=== PATIENT | female | born 1935 | race Caucasian/White ===

== ENCOUNTER → 2017-09-22 08:54 | Outpatient (CLI) | payer MEDICARE, SELFPAY ==
[2017-09-22 10:12] LABS: Color, Urine Yellow (Yellow); Glucose, Dipstick Normal (Normal); Ketone-Dipstick Negative (Negative); Leukocyte Esterase-Dipstick 500 /ul (Negative); Nitrite-Dipstick Negative (Negative); Occult Blood-Urine 10 /ul (Negative); Protein-Dipstick 15 mg/dl (Negative); Specific Gravity, Urine 1.015 (1.002-1.030); Urine Bilirubin Dipstick Negative (Negative); Urine Clarity Sl. Cloudy (Clear); Urine Urobilinogen 1 mg/dl (Normal)
[2017-09-22 10:46] LABS: ALB/GLOB Ratio 0.8 RATIO (0.9-2.4); AST(SGOT) 17 U/L (15-37); Alanine Aminotransfer ALT/SGPT 22 U/L (13-56); Albumin, Serum 3.4 g/dL (3.2-5.0); Alkaline Phosphatase 75 U/L (45-117); Anion Gap 9 (5-15); BUN 27 mg/dL (7-18); BUN/Creat Ratio 18.9 RATIO (10-20); Calcium,Total 9.4 mg/dL (8.5-10.1); Chloride 103 mmol/L (98-107); Cholesterol 142 mg/dL (200); Creatinine, Serum 1.43 mg/dL (0.55-1.02); EST Glomerular Filtration Rate 37 mL/min (>60); Est Glom Filt Rate - Afr Amer 45 mL/min (>60); Globulin 4.5 g/dL (2.2-4.2); Glucose 111 mg/dL (74-106); High Density Lipoprotein 55 mg/dL; Potassium 3.9 mmol/L (3.5-5.1); Protein, Total 7.9 g/dL (6.4-8.2); Sodium Level 138 mmol/L (136-145); Thyroid Stim Hormone (TSH) 2.42 uIU/mL (0.358-3.74); Triglycerides 86 mg/dL; Very Low Density Lipoprotein 17 mg/dL (5-40)
[2017-09-22 12:16] LABS: Absolute Lymphocyte Count 2.82 X10^3/ul (0.83-4.51); Basophil# 0.03 X10^3/uL; Basophil% 0.3 % (0-1); Eosinophil# 0.14 X10^3/uL; Eosinophils% 1.2 % (0-5); Hematocrit 42.8 % (37-47); Hemoglobin 14.2 g/dl (12.0-15.0); Lymphocyte # 2.82 X10^3/ul (4.0); Lymphocyte % 23.7 % (19-41); Mean Corp Hgb Conc 33.2 g/gl (32-36); Mean Corpuscular Hgb 31.8 pg (27.0-32.0); Mean Platelet Vol. 10.2 fl (6.2-12.0); Monocyte# 0.87 X10^3/uL; Monocyte% 7.3 % (0-10); Neutrophil # 7.97 X10^3/uL (2.7-7.7); Neutrophil % 67.1 % (47-70); Platelet Count 289 K/mm3 (150-450); RBC Distribution Width CV 12.5 % (11.6-14.6); Red Blood Count 4.46 M/mm3 (4.2-5.4); White Blood Count 11.9 K/mm3 (4.4-11.0)
[2017-09-22 12:20] LABS: POSITIVE COUNT NO; POSITIVE DIFFERENTIAL NO; POSITIVE MORPHOLOGY NO
== END ==
PROVIDERS: Family Provider Family Medicine; PCP Family Medicine; Visit Provider Family Medicine
DX: Z00.00 Encounter for general adult medical examination without abnormal findings (principal); I10 Essential (primary) hypertension; E03.9 Hypothyroidism, unspecified
CPT/HCPCS: 36415; 80053; 80061; 81002; 84443; 85025

== ENCOUNTER → 2018-10-11 08:20 | Outpatient (CLI) | payer MEDICARE, SELFPAY ==
[2018-10-11 09:57] LABS: Color, Urine Yellow (Yellow); Glucose, Dipstick Normal (Normal); Ketone-Dipstick Negative (Negative); Leukocyte Esterase-Dipstick 100 /ul (Negative); Nitrite-Dipstick Negative (Negative); Occult Blood-Urine Negative /ul (Negative); Protein-Dipstick Negative (Negative); Urine Bilirubin Dipstick Negative (Negative); Urine Clarity Sl. Cloudy (Clear); Urine Urobilinogen 4 mg/dl (Normal)
[2018-10-11 10:02] LABS: Absolute Lymphocyte Count 2.79 X10^3/ul (0.83-4.51); Absolute Neutrophil Count 5.4 X10^3/uL (2.0-7.7); Basophil# 0.03 X10^3/uL; Basophil% 0.3 % (0-1); Eosinophil# 0.23 X10^3/uL; Eosinophils% 2.5 % (0-5); Hematocrit 41.9 % (37-47); Hemoglobin 13.8 g/dl (12.0-15.0); Lymphocyte # 2.79 X10^3/ul (4.0); Lymphocyte % 30.5 % (19-41); Mean Corp Hgb Conc 32.9 g/gl (32-36); Mean Corpuscular Hgb 31.2 pg (27.0-32.0); Mean Corpuscular Volume 94.8 fL (81-99); Mean Platelet Vol. 9.9 fl (6.2-12.0); Monocyte# 0.64 X10^3/uL; Neutrophil # 5.43 X10^3/uL (2.7-7.7); Neutrophil % 59.5 % (47-70); Platelet Count 247 K/mm3 (150-450); Red Blood Count 4.42 M/mm3 (4.2-5.4); White Blood Count 9.1 K/mm3 (4.4-11.0)
[2018-10-11 10:08] LABS: POSITIVE COUNT NO; POSITIVE DIFFERENTIAL NO; POSITIVE MORPHOLOGY NO
[2018-10-11 10:32] LABS: ALB/GLOB Ratio 0.9 RATIO (0.9-2.4); AST(SGOT) 14 U/L (15-37); Alanine Aminotransfer ALT/SGPT 19 U/L (13-56); Albumin, Serum 3.4 g/dL (3.2-5.0); Alkaline Phosphatase 69 U/L (45-117); Anion Gap 10 (5-15); BUN 23 mg/dL (7-18); BUN/Creat Ratio 23.7 RATIO (10-20); Calcium,Total 9.5 mg/dL (8.5-10.1); Chloride 106 mmol/L (98-107); Cholesterol 145 mg/dL (200); Creatinine, Serum 0.97 mg/dL (0.55-1.02); EST Glomerular Filtration Rate 58 mL/min (>60); Est Glom Filt Rate - Afr Amer 71 mL/min (>60); Globulin 3.7 g/dL (2.2-4.2); Glucose 96 mg/dL (74-106); High Density Lipoprotein 56 mg/dL; Protein, Total 7.1 g/dL (6.4-8.2); Sodium Level 142 mmol/L (136-145); Thyroid Stim Hormone (TSH) 3.06 uIU/mL (0.358-3.74); Triglycerides 56 mg/dL; Very Low Density Lipoprotein 11 mg/dL (5-40)
== END ==
PROVIDERS: Family Provider Family Medicine; PCP Family Medicine; Referring Provider Family Medicine; Visit Provider Family Medicine
DX: Z00.00 Encounter for general adult medical examination without abnormal findings (principal); Z12.39 Encounter for other screening for malignant neoplasm of breast; E03.9 Hypothyroidism, unspecified
CPT/HCPCS: 36415; 80053; 80061; 81002; 84443; 85025

== ENCOUNTER → 2018-11-10 12:50 | Outpatient (CLI) | payer MEDICARE, SELFPAY ==
--- NOTE | 2018-11-10 12:54 | BI_ITS ---
MAMMOGRAPHY - BILATERAL SCREENING REASON FOR EXAM: Female, 83 years old. Routine annual screening examination. PERTINENT HISTORY: Sister with breast cancer. Remote right excisional breast biopsies. TECHNIQUE: Digital bilateral breast candi (3D mammographic acquisition) in the CC and MLO projections. 2-D mediolateral oblique (MLO) and craniocaudad (CC) views of both breasts were obtained. CAD: Full Field Digital Mammography with Computer Added Detection was performed. COMPARISON: Comparison is made with prior study dated October 24, 2017 and November 20, 2015. FINDINGS: Breast Composition: There are scattered areas of fibroglandular density. There are no dominant masses or suspicious calcifications. Stable bilateral secretory calcifications. A tissue clip marker is again seen in the axillary region of the right breast. No other significant abnormalities are identified. There has been no significant change since the prior study. BI/SCREEN MAMM (CAD) W/CANDI BILAT IMPRESSION: Stable bilateral screening mammogram. Yearly follow-up mammogram recommended. (A) ASSESSMENT CATEGORY: BIRADS Category 2: Benign. A letter regarding these results will be sent to the patient by the facility within 30 days. Approximately 10% of breast cancers are not detected by mammography. A normal mammogram should not delay biopsy of a clinically suspicious abnormality. [id number] Electronically Signed: Kenan Rodriguez, at 15:18 EDT , Service support ,
== END ==
PROVIDERS: Family Provider Family Medicine; PCP Family Medicine; Referring Provider Family Medicine; Visit Provider Family Medicine
DX: Z12.31 Encounter for screening mammogram for malignant neoplasm of breast (principal); Z80.3 Family history of malignant neoplasm of breast
CPT/HCPCS: 77063; 77067

== ENCOUNTER → 2019-10-09 08:31 | Outpatient (CLI) | payer MEDICARE, SELFPAY ==
[2019-10-09 12:07] LABS: Absolute Lymphocyte Count 2.24 X10^3/uL (0.83-4.51); Absolute Neutrophil Count 6.3 X10^3/uL (2.0-7.7); Basophil# 0.05 X10^3/uL; Basophil% 0.5 % (0-1); Eosinophils% 1.1 % (0-5); Hematocrit 41.8 % (37-47); Hemoglobin 13.6 g/dL (12.0-15.0); Lymphocyte # 2.24 X10^3/ul (4.0); Lymphocyte % 23.7 % (19-41); Mean Corp Hgb Conc 32.5 g/dL (32-36); Mean Corpuscular Hgb 32.2 pg (27.0-32.0); Mean Corpuscular Volume 98.8 fL (81-99); Mean Platelet Vol. 10.1 fl (6.2-12.0); Monocyte% 7.4 % (0-10); NRBC Flagged by Analyzer 0 % (0-5); Neutrophil # 6.33 X10^3/uL (2.7-7.7); Platelet Count 223 K/mm3 (150-450); RBC Distribution Width CV 12.8 % (11.6-14.6); RBC Distribution Width SD 45.5 fl (35.1-43.9); Red Blood Count 4.23 M/mm3 (4.2-5.4); White Blood Count 9.5 K/mm3 (4.4-11.0)
[2019-10-09 12:36] LABS: ALB/GLOB Ratio 0.8 RATIO (0.9-2.4); AST(SGOT) 16 U/L (15-37); Alanine Aminotransfer ALT/SGPT 23 U/L (13-56); Albumin, Serum 3.4 g/dL (3.2-5.0); Alkaline Phosphatase 61 U/L (45-117); Anion Gap 9 (5-15); BUN 21 mg/dL (7-18); BUN/Creat Ratio 21.9 RATIO (10-20); Calcium,Total 9.5 mg/dL (8.5-10.1); Chloride 104 mmol/L (98-107); Cholesterol 129 mg/dL (200); Creatinine, Serum 0.96 mg/dL (0.55-1.02); EST Glomerular Filtration Rate 59 mL/min (>60); Est Glom Filt Rate - Afr Amer 71 mL/min (>60); Glucose 101 mg/dL (74-106); High Density Lipoprotein 53 mg/dL; Potassium 3.8 mmol/L (3.5-5.1); Protein, Total 7.4 g/dL (6.4-8.2); Sodium Level 138 mmol/L (136-145); Thyroid Stim Hormone (TSH) 2.86 uIU/mL (0.358-3.74); Triglycerides 59 mg/dL; Very Low Density Lipoprotein 12 mg/dL (5-40)
[2019-10-09 12:52] LABS: Color, Urine Yellow (Yellow); Glucose, Dipstick Normal (Normal); Ketone-Dipstick Negative (Negative); Leukocyte Esterase-Dipstick 500 /ul (Negative); Nitrite-Dipstick Negative (Negative); Occult Blood-Urine 10 /ul (Negative); Protein-Dipstick 15 mg/dl (Negative); Urine Bilirubin Dipstick Negative (Negative); Urine Clarity Sl. Cloudy (Clear); Urine Urobilinogen 1 mg/dl (Normal)
== END ==
PROVIDERS: PCP Family Medicine; Referring Provider Family Medicine; Visit Provider Family Medicine
DX: Z00.00 Encounter for general adult medical examination without abnormal findings (principal); E03.9 Hypothyroidism, unspecified; I10 Essential (primary) hypertension
CPT/HCPCS: 36415; 80053; 80061; 81002; 84443; 85025

== ENCOUNTER → 2020-09-22 08:43 | Outpatient (CLI) | payer MEDICARE, SELFPAY ==
[2020-09-22 10:07] LABS: Absolute Lymphocyte Count 3.86 X10^3/uL (0.83-4.51); Absolute Neutrophil Count 4.9 X10^3/uL (2.0-7.7); Basophil# 0.07 X10^3/uL; Basophil% 0.7 % (0-1); Eosinophil# 0.13 X10^3/uL; Eosinophils% 1.3 % (0-5); Hematocrit 43.7 % (37-47); Hemoglobin 14.2 g/dL (12.0-15.0); Lymphocyte # 3.86 X10^3/ul (0.83-4.51); Lymphocyte % 39.9 % (19-41); Mean Corp Hgb Conc 32.5 g/dL (32-36); Mean Corpuscular Hgb 31.7 pg (27.0-32.0); Mean Corpuscular Volume 97.5 fL (81-99); Mean Platelet Vol. 9.8 fl (6.2-12.0); Monocyte# 0.69 X10^3/uL; Monocyte% 7.1 % (0-10); NRBC Flagged by Analyzer 0 % (0-5); Neutrophil # 4.88 X10^3/uL (2.7-7.7); Neutrophil % 50.5 % (47-70); Platelet Count 272 K/mm3 (150-450); RBC Distribution Width CV 12.5 % (11.6-14.6); Red Blood Count 4.48 M/mm3 (4.2-5.4); White Blood Count 9.7 K/mm3 (4.4-11.0)
[2020-09-22 10:34] LABS: ALB/GLOB Ratio 0.9 RATIO (0.9-2.4); AST(SGOT) 14 U/L (15-37); Alanine Aminotransfer ALT/SGPT 18 U/L (13-56); Albumin, Serum 3.7 g/dL (3.2-5.0); Alkaline Phosphatase 67 U/L (45-117); Anion Gap 8 (5-15); BUN 24 mg/dL (7-18); BUN/Creat Ratio 23.1 RATIO (10-20); Calcium,Total 10.2 mg/dL (8.5-10.1); Chloride 104 mmol/L (98-107); Cholesterol 141 mg/dL (200); Creatinine, Serum 1.04 mg/dL (0.55-1.02); EST Glomerular Filtration Rate 54 mL/min (>60); Est Glom Filt Rate - Afr Amer 65 mL/min (>60); Globulin 4.1 g/dL (2.2-4.2); Glucose 98 mg/dL (74-106); High Density Lipoprotein 56 mg/dL; Potassium 3.7 mmol/L (3.5-5.1); Protein, Total 7.8 g/dL (6.4-8.2); Sodium Level 139 mmol/L (136-145); Thyroid Stim Hormone (TSH) 1.87 uIU/mL (0.358-3.74); Triglycerides 76 mg/dL; Very Low Density Lipoprotein 15 mg/dL (5-40)
== END ==
PROVIDERS: PCP Family Medicine; Referring Provider Family Medicine; Visit Provider Family Medicine
DX: Z00.00 Encounter for general adult medical examination without abnormal findings (principal); Z12.31 Encounter for screening mammogram for malignant neoplasm of breast; I48.91 Unspecified atrial fibrillation; I10 Essential (primary) hypertension; E03.9 Hypothyroidism, unspecified
CPT/HCPCS: 36415; 80053; 80061; 84443; 85025

== ENCOUNTER → 2021-02-25 10:42 | Outpatient (CLI) | payer MEDICARE, SELFPAY ==
[2021-02-25 13:14] LABS: Thyroid Stim Hormone (TSH) 1.19 uIU/mL (0.358-3.74)
== END ==
PROVIDERS: PCP Family Medicine; Referring Provider Family Medicine; Visit Provider Family Medicine
DX: E03.9 Hypothyroidism, unspecified (principal)
CPT/HCPCS: 36415; 84443

== ENCOUNTER → 2021-09-21 | Outpatient (CLI) | payer MEDICARE, SELFPAY ==
[2021-09-21 10:11] LABS: Absolute Neutrophil Count 6.1 X10^3/uL (2.0-7.7); Basophil# 0.07 X10^3/uL; Basophil% 0.7 % (0-1); Eosinophil# 0.23 X10^3/uL; Eosinophils% 2.3 % (0-5); Hematocrit 43.4 % (37-47); Hemoglobin 13.9 g/dL (12.0-15.0); Lymphocyte % 28.2 % (19-41); Mean Corpuscular Hgb 31.4 pg (27.0-32.0); Mean Corpuscular Volume 98.2 fL (81-99); Mean Platelet Vol. 9.8 fl (6.2-12.0); Monocyte# 0.67 X10^3/uL; Monocyte% 6.7 % (0-10); NRBC Flagged by Analyzer 0 % (0-5); Neutrophil # 6.11 X10^3/uL (2.7-7.7); Neutrophil % 61.5 % (47-70); Platelet Count 248 K/mm3 (150-450); RBC Distribution Width CV 12.8 % (11.6-14.6); RBC Distribution Width SD 46.2 fl (35.1-43.9); Red Blood Count 4.42 M/mm3 (4.2-5.4); White Blood Count 9.9 K/mm3 (4.4-11.0)
[2021-09-21 11:01] LABS: ALB/GLOB Ratio 0.8 RATIO (0.9-2.4); AST(SGOT) 18 U/L (15-37); Alanine Aminotransfer ALT/SGPT 18 U/L (13-56); Albumin, Serum 3.4 g/dL (3.2-5.0); Alkaline Phosphatase 71 U/L (45-117); Anion Gap 5 (5-15); BUN 27 mg/dL (7-18); BUN/Creat Ratio 26.7 RATIO (10-20); Calcium,Total 10.1 mg/dL (8.5-10.1); Chloride 105 mmol/L (98-107); Cholesterol 114 mg/dL (200); Creatinine, Serum 1.01 mg/dL (0.55-1.02); EST Glomerular Filtration Rate 55 mL/min (>60); Est Glom Filt Rate - Afr Amer 67 mL/min (>60); Globulin 4.3 g/dL (2.2-4.2); Glucose 95 mg/dL (74-106); High Density Lipoprotein 55 mg/dL; Potassium 3.9 mmol/L (3.5-5.1); Protein, Total 7.7 g/dL (6.4-8.2); Sodium Level 137 mmol/L (136-145); Thyroid Stim Hormone (TSH) 2.45 uIU/mL (0.358-3.74); Triglycerides 55 mg/dL; Very Low Density Lipoprotein 11 mg/dL (5-40)
== END | disposition home or self-care (01) ==
LOC: MTLAB 09:01
PROVIDERS: PCP Family Medicine; Referring Provider Family Medicine; Visit Provider Family Medicine
DX: Z00.00 Encounter for general adult medical examination without abnormal findings (principal); I48.91 Unspecified atrial fibrillation; I10 Essential (primary) hypertension; E03.9 Hypothyroidism, unspecified
CPT/HCPCS: 36415; 80053; 80061; 84443; 85025

== ENCOUNTER 2024-06-11 17:53 | Inpatient (IN) | payer MEDICARE, SELFPAY ==
[2024-06-11] VITALS (12 sets, daily range): BP systolic 147–181; BP diastolic 95–130; PULSE 110–126; RESP 14–30; TEMP 36.5–37; O2SAT 93–98; BMI 29.2; BMI 28.3
--- NOTE | 2024-06-11 16:58 | RAD_ITS ---
PROCEDURE: CHEST 1 VIEW (PORTABLE) REASON FOR EXAM: Confusion TECHNIQUE: Frontal and lateral views of the chest. COMPARISON: None. FINDINGS: Heart size is moderately enlarged. There are atherosclerotic calcifications of the thoracic aorta. There are chronic-appearing changes of both lungs. Degenerative changes are identified within the thoracic spine. RAD/Chest 1 View (Portable) IMPRESSION: 1. Cardiomegaly with mild pulmonary vascular congestion 2. 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 Reading Location: [facility]
--- NOTE | 2024-06-11 18:07 | EX.ED.DYSGE1 ---
HPI History of Present Illness Chief Complaint: Neuro S/Sx [facility] Medical History (Updated 06/11/24 @ 22:[address] Mio Benitez MD) Hypertension Home Medications ?Medication ?Instructions ?Recorded ?Last Taken ?Type Unobtainable 06/11/24 Unknown History Allergy/AdvReac Type Severity Reaction Status Date / Time No Known Allergies Allergy Verified 06/11/24 20:12 Family History unable to obtain Surgical History unable to obtain Social History Smoking Status: Never smoker EXAM Physical Exam Const Vital Signs: 06/11/24 17:54 06/11/24 19:31 06/11/24 20:15 Temperature 98.6 F Temperature Source Temporal Pulse Rate 120 H 112 H 112 H Respiratory Rate 16 24 H 20 H Blood Pressure 175/130 H 171/111 H 174/106 H Blood Pressure Mean 145 131 128 Pulse Ox 93 94 95 Oxygen Delivery Method Room Air Nasal Cannula Nasal Cannula Oxygen Flow Rate (L/min) 2 2 06/11/24 20:45 06/11/24 21:12 06/11/24 22:00 Temperature 97.7 F L 97.8 F Temperature Source Oral Oral Pulse Rate 118 H 110 H 111 H Respiratory Rate 30 H 18 20 H Blood Pressure 161/115 H 167/127 H 181/121 H Blood Pressure Mean 130 140 141 Pulse Ox 93 94 98 Oxygen Delivery Method Nasal Cannula Nasal Cannula Oxygen Flow Rate (L/min) 2 2 MDM MDM MDM Narrative Medical decision making narrative: HISTORY OF PRESENT ILLNESS: 88-year-old female presents concern for expressive aphasia. Son notes last time she was noted to be normal was at approximately 10 AM on 06/10/2024. The majority history is provided by the patient's son if she is confused. Today around noon she showed up at her her son's house and was having trouble finding her words. Notes confusion, saying non-sensical words. NO falls. no fever, no vomiting. REVIEW OF SYSTEMS: Pertinent positives: Word finding difficulty, confusion ROS are not reliable 2/2 to mental status changes. PHYSICAL EXAM: Nursing triage notes reviewed, Vital signs reviewed Constitutional: please see mdm HENT: MMM Eyes: Pupils equal round and reactive to light, Extraocular muscles intact Neck: No stridor, no JVD, full neck ROM Lungs: Clear to auscultation, No wheezing or rales. No increased work of breathing, no conversational dyspnea, no accessory muscle use, no nasal flaring. No respiratory distress noted Heart: Regular rate and rhythm, No murmurs, No rubs and No gallops, 2+ distal pulses (radial, femoral, posterior tibial) in all extremities Abdomen: Soft, there is no tenderness, rigidity, rebound or guarding, no obvious peritoneal signs, no palpable pulsatile abdominal masses, no auscultated abdominal bruit : No CVAT Extremities: No edema Neuro: Alert, oriented to person and place but not time. (Per son baseline is alert and orient x 3), moves all 4 extremities, has normal speech. No obvious cranial nerve deficits. No obvious sensory or strength deficits. No issues with extremity or truncal ataxia. NIH of 0 Skin: No rash or lesions noted MEDICAL DECISION MAKING: Chief Complaint: Speech difficulty External records reviewed: Reviewed prior imaging studies. Reviewed echocardiogram from 2016 which showed ejection fraction of 55% Factors affecting care: none reported Social determinants of health: elderly History obtained from others: The patient's son Consults: Neurosurgery at [facility] Emergency is Dr. Donaldson, Internal Medicine (Dr. Crum) MDM Narrative: The patient was initially hypertensive with a blood pressure 175/130, tachycardic with a heart rate of 120. Exam without focal neurologic deficits. The patient. Diffuse encephalopathic I considered the following differential diagnosis: ICH, infectious or metabolic encephalopathy, ACS, arrhythmia, anemia, electrolyte disturbance I obtained a broad lab and imaging workup to further elucidate etiology of patient's complaints. Patient was initially resuscitated from cc bolus ALL IMAGES (IF OBTAINED) HAVE BEEN PERSONALLY REVIEWED AND INTERPRETED BY MYSELF. EKG with normal axis, normal's, A-fib with RVR, no STEMI Initial troponin elevated, delta troponin continues to be elevated. This is likely a result of demand ischemia from A-fib with RVR, CHF and urosepsis. Chest x-ray shows evidence of pulmonary vascular congestion CT scan of the head is negative for ICH, there is noted meningioma CBC with leukocytosis suggestive recent abrasion, no anemia or thrombocytopenia BMP without significant electrolyte normalities, no MARITZA Initial lactate elevated consistent with endorgan hypoperfusion Urinalysis without nitrites however there is leukoesterase and 4+ bacteria consistent with likely UTI lipase is wnl indicating no pancreatic inflammation. Urine culture sent Treat UTI with ceftriaxone. Pulmonary vascular congestion new oxygen requirement of the patient ED stay after 500 cc bolus I gave her 40 mg of Lasix. Given CT scan Dr. Benitez initially recommended transfer. Discussed with [facility] Dr. Donaldson who noted the patient would not require neurosurgery intervention for meningioma. Recommended no transfer. Discussed this with Dr. Benitez who agreed to accept the patient. The patient and/or family, caregivers express understanding. The patient and/or family, caregivers agrees with the plan. Shared decision making: I will have a discussion with the patient and or visitors regarding risk/benefits of further testing or admission. They will be made aware of of the risk/benefits inherent in this decision they will be given the opportunity to voice understanding. Total critical care time today provided was at least 0 minutes. This excludes separately billable procedures. Critical care time (if documented) is secondary to the patient having high probability of clinically significant/life threatening deterioration in the patient's condition which required my urgent intervention. Impression: 1. Altered mental status 2. Urosepsis 3. CHF exacerbation 4. NSTEMI 5. A-fib with Dispo: admit to ICU This note was generated with [employer] dictation software. It may contain incorrect words, spelling, and punctuation that were not noted in review of the chart prior to signing. Lab Data Labs: Laboratory Results - last 24 hr 06/11/24 06/11/24 06/11/24 18:45 18:50 20:31 WBC 14.6 H RBC 4.59 Hgb 14.9 Hct 45.0 MCV 98.0 MCH 32.5 H MCHC 33.1 RDW Std Deviation 47.4 H RDW Coeff of Hong 13.2 Plt Count 262 MPV 9.4 Immature Gran % (Auto) 0.500 Neut % (Auto) 69.7 Lymph % (Auto) 21.4 [place] % (Auto) 7.0 Eos % (Auto) 0.8 Baso % (Auto) 0.6 Absolute Neuts (auto) 10.2 H Absolute Lymphs (auto) 3.12 Nucleated RBC % 0 Sodium 133 Potassium 3.9 Chloride 95 L Carbon Dioxide 22.6 Anion Gap 15 BUN 23 H Creatinine 1.00 Est GFR (MDRD) Non-Af 54 L BUN/Creatinine Ratio 22.6 H Glucose 113 H Lactic Acid 3.1 H* Calcium 10.3 Total Bilirubin 1.53 H AST 39 H ALT 18 Alkaline Phosphatase 80 Troponin T High Sens 64 H* Troponin T Hi Sens 2 Hr 59 H* Troponin T Hi Sens 2Hr Delta 5 Total Protein 8.2 Albumin 3.8 Globulin 4.4 H Albumin/Globulin Ratio 0.9 Lipase 20 Urine Color Yellow Urine Clarity Cloudy Urine pH 6.5 Ur Specific [place] 1.015 Urine Protein 100 H Urine Glucose (UA) Normal Urine Ketones Negative Urine Occult Blood 25 H Urine Nitrite Negative Urine Bilirubin Negative Urine Urobilinogen 8 H Ur Leukocyte Esterase 25 H Urine RBC 0 SEEN Urine WBC 0-5 SEEN Ur Squamous Epith Cells 0 SEEN Amorphous Sediment 1+ Urine Bacteria 4+ Urine Mucus 0 SEEN Radiography Diagnostic Testing: Clinical Impression(s) from Imaging Studies Chest X-Ray 06/11/24 16:58 IMPRESSION: 1. Cardiomegaly with mild pulmonary vascular congestion 2. 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 Reading Location: [facility] Brain CT 06/11/24 18:17 IMPRESSION: 1. No acute intracranial abnormality. 2. Age-appropriate volume loss and remote small vessel ischemic changes 3. Left parietal meningioma Reading Location: [facility] Discharge Plan Disposition Disposition: Acute Care Hospital [facility] Discharge Date/Time: 06/11/24 22:55
--- NOTE | 2024-06-11 18:17 | CT_ITS ---
EXAM: BRAIN/HEAD WITHOUT CONTRAST CLINICAL HISTORY: Confusion COMPARISON: None. TECHNIQUE: Noncontrast images of the head with multiplanar reconstructions. Dose reduction techniques were used including intermediate exposure control (AEC),iterative reconstruction technique, and/or mA and/or KV dose adjustments based on patient's size. FINDINGS: CT HEAD FINDINGS: No acute intracranial hemorrhage, mass, mass effect, midline shift or pathologic extra-axial fluid collection. Nonspecific periventricular white matter changes are noted No hydrocephalus. Age- appropriate cerebral volume and white matter. Visualized paranasal sinuses and mastoid air cells are clear. The calvarium is grossly intact. Round calcific mass in the left parietal convexity measuring 9 x [address]/Brain/Head without Contrast IMPRESSION: 1. No acute intracranial abnormality. 2. Age-appropriate volume loss and remote small vessel ischemic changes 3. Left parietal meningioma [facility]
--- NOTE | 2024-06-11 18:17 | EKG12_ITS ---
Test Reason : DYSRHYTHMIA Blood Pressure : */* mmHG Vent. Rate : 131 BPM Atrial Rate : 267 BPM P-R Int : * ms QRS Dur : 90 ms QT Int : 348 ms P-R-T Axes : * -17 41 degrees QTcB Int : 513 ms Atrial flutter with variable A-V block Low voltage QRS Abnormal ECG Confirmed by Benjamín Hendrix ([id number]), manuscript editor ANSON COHEN ([id number]) on 06/12/2024 10:44:57 AM Referred By: Mio Benitez Confirmed By: Benjamín Hendrix
[2024-06-11 18:56] LABS: Mucous, Urine 0 SEEN /hpf (<or=2+); Squamous Epithelial Cells - UA 0 SEEN /hpf (5-10)
[2024-06-11 18:58] LABS: Absolute Lymphocyte Count 3.12 X10^3/uL (0.83-4.51); Absolute Neutrophil Count 10.2 X10^3/uL (2.0-7.7); Basophil# 0.09 X10^3/uL; Basophil% 0.6 % (0-1); Eosinophil# 0.11 X10^3/uL; Eosinophils% 0.8 % (0-5); Hemoglobin 14.9 g/dL (12.0-15.0); Lymphocyte # 3.12 X10^3/ul (0.83-4.51); Lymphocyte % 21.4 % (19-41); Mean Corp Hgb Conc 33.1 g/dL (32-36); Mean Corpuscular Hgb 32.5 pg (27.0-32.0); Mean Platelet Vol. 9.4 fl (6.2-12.0); Monocyte# 1.02 X10^3/uL; NRBC Flagged by Analyzer 0 % (0-5); Neutrophil # 10.16 X10^3/uL (2.7-7.7); Neutrophil % 69.7 % (47-70); Platelet Count 262 K/mm3 (150-450); RBC Distribution Width CV 13.2 % (11.6-14.6); RBC Distribution Width SD 47.4 fl (35.1-43.9); Red Blood Count 4.59 M/mm3 (4.2-5.4); White Blood Count 14.6 K/mm3 (4.4-11.0)
[2024-06-11 19:00] LABS: Color, Urine Yellow (Yellow); Glucose, Dipstick Normal (Normal); Ketone-Dipstick Negative (Negative); Leukocyte Esterase-Dipstick 25 /ul (Negative); Nitrite-Dipstick Negative (Negative); Occult Blood-Urine 25 /ul (Negative); Protein-Dipstick 100 mg/dl (Negative); Specific Gravity, Urine 1.015 (1.002-1.030); Urine Bilirubin Dipstick Negative (Negative); Urine Clarity Cloudy (Clear); Urine Urobilinogen 8 mg/dl (Normal); Urine pH 6.5 (5.0 - 8.0)
[2024-06-11 19:50] LABS: ALB/GLOB Ratio 0.9 RATIO (0.9-2.4); AST(SGOT) 39 U/L (<=31); Alanine Aminotransfer ALT/SGPT 18 U/L (<=34); Albumin, Serum 3.8 g/dL (3.4-4.8); Alkaline Phosphatase 80 U/L (35-104); Anion Gap 15 (5-15); BUN 23 mg/dL (4-19); BUN/Creat Ratio 22.6 RATIO (10-20); Calcium,Total 10.3 mg/dL (7.6-11.0); Carbon Dioxide 22.6 mmol/L (21.0-32.0); Chloride 95 mmol/L (98-108); EST Glomerular Filtration Rate 54 (>60); Globulin 4.4 g/dL (2.2-4.2); Glucose 113 mg/dL (70-99); Lipase 20 U/L (13-75); Potassium 3.9 mmol/L (3.3-5.1); Protein, Total 8.2 g/dL (5.9-8.4); Sodium Level 133 mmol/L (133-145); Total Bilirubin 1.53 mg/dL (0.00-1.30)
[2024-06-11 19:57] LABS: Amorphous Sediment 1+; Bacteria 4+ /hpf (None Seen); Red Blood Cells-Urine 0 SEEN /hpf (0-5); White Blood Cells 0-5 SEEN /hpf (0-5)
[2024-06-11 20:15] LABS: Lactic Acid 3.1 mmol/L (0.0-2.0)
[2024-06-11 20:16] LABS: Troponin T High Sensitivity 64 ng/L (<=14)
[2024-06-11] MEDS: Furosemide 40 MG/4 ML Vial IV (20:30)
[2024-06-11] MEDS: Metoprolol Tartrate 5 MG/5 ML Vial IV (21:07)
[2024-06-11] MEDS: 0.9% Normal Saline (500mL Bag) 500 ML 999 ML IV (21:08)
[2024-06-11] MEDS: Ceftriaxone 2 GM in 0.9% Normal Saline (50mL MB+) 50 ML IV (21:08)
--- NOTE | 2024-06-11 21:12 | ED.RN ---
ASKS ACCESSIBILITY LIFT TECHNICIAN TO CALL TO INITIATE TRANFER, SUGGESTED [facility]. MELINDA FROM TRANSFER LINES COLLCTED BASIC INOFRMATION AND REQUESTED TO TALK TO [facility] FOR FURTHER. WAITING CALL BACK.
[2024-06-11 21:13] LABS: TROPONIN VARIANCE 2 HR 5; Troponin T High Sens 2 HR 59 ng/L (<=14)
--- NOTE | 2024-06-11 22:29 | PCM.HP.STD ---
HPI - General General Date of Admission: 06/11/24 Date of Service: 06/11/24 Chief Complaint: Altered mental status HPI Narrative ESTEBAN GARNER, is a 88 F who presents to the emergency room with chief complaint of altered mental status. Patient was last known normal on 06/10/2024 at 10 AM but today went to her son's house at noon when he says that she was unable to speak clearly and nonsensical in her verbal communication. There were no other focal neurologic deficits reported at that time and initial NIH score the hospital setting was 0. Patient is a poor historian. Her laboratory studies were remarkable for an elevated white blood cell count of 14.6, hemoglobin 14.9, hematocrit 45, platelets 262, sodium 133, potassium 3.9, chloride 95, bicarb 22.6, BUN 23, creatinine 1.0, glucose 113, lactate elevated at 3.1 with 2 serial troponins of 64 and 59, urinalysis positive for 4+ bacteria. CT scan was negative for acute findings however there was a noted left parietal meningioma reported for which neurosurgery at [facility] Was consulted by ER physician and felt not necessary to transfer patient that this was not causative of her current status. Chest x-ray showed cardiomegaly with vascular congestion and BN TP was pending at the time of my evaluation. Urinalysis was done prior to administration of antibiotics however blood cultures were not obtained prior to administration of Rocephin in the emergency room setting. Patient also has a significant history of atrial fibrillation for which she is currently in rapid ventricular response with a rate in the approximate 130 range. Patient will be admitted to the intensive care unit for treatment of urinary tract infection with sepsis [facility] Medical History (Updated 06/11/24 @ 22:[address] Mio Benitez MD) Hypertension Home Medications ?Medication ?Instructions ?Recorded ?Last Taken ?Type Unobtainable 06/11/24 Unknown History Allergy/AdvReac Type Severity Reaction Status Date / Time No Known Allergies Allergy Verified 06/11/24 20:12 Family History unable to obtain Surgical History unable to obtain Social History Smoking Status: Never smoker ROS Review of Systems ROS Unobtainable: due to mental status Vital Signs Vital Signs Vital Signs: 06/11/24 17:54 06/11/24 19:31 06/11/24 20:15 Temperature 98.6 F Temperature Source Temporal Pulse Rate 120 H 112 H 112 H Respiratory Rate 16 24 H 20 H Blood Pressure 175/130 H 171/111 H 174/106 H Blood Pressure Mean 145 131 128 Pulse Ox 93 94 95 Oxygen Delivery Method Room Air Nasal Cannula Nasal Cannula Oxygen Flow Rate (L/min) 2 2 06/11/24 20:45 06/11/24 21:12 06/11/24 22:00 Temperature 97.7 F L 97.8 F Temperature Source Oral Oral Pulse Rate 118 H 110 H 111 H Respiratory Rate 30 H 18 20 H Blood Pressure 161/115 H 167/127 H 181/121 H Blood Pressure Mean 130 140 141 Pulse Ox 93 94 98 Oxygen Delivery Method Nasal Cannula Nasal Cannula Oxygen Flow Rate (L/min) 2 2 Weight Weight: 159 lb 9.835 oz Body Mass Index (BMI) 29.2 Physical Exam Const alert General Appearance: cooperative Orientation / Consciousness: confused HEENT normocephalic and head/scalp atraumatic Eyes PERRL and EOMs intact bilaterally Neck no lymphadenopathy Lymph Lymphatic: no lymphadenopathy noted Resp normal respiratory effort, normal air movement and clear to auscultation bilaterally Cardio Rate: tachycardic Rhythm: abnormal rhythm irregularly irregular GI normal to inspection, nondistended, normoactive bowel sounds, soft to palpation, non-tender and non-distended Extremity normal capillary refill Skin General Skin Exam: no breakdown Neuro CN's II-XII intact bilaterally, no focal motor deficits and no sensory deficits noted Motor Exam: strength 5/5 throughout Psych Mood & Affect: anxious Results Lab / Micro Data 06/11/24 18:45 06/11/24 18:45 Labs: Laboratory Results - last 24 hr 06/11/24 18:45: WBC 14.6 H, RBC 4.59, Hgb 14.9, Hct 45.0, MCV 98.0, MCH 32.5 H, MCHC 33.1, RDW Std Deviation 47.4 H, RDW Coeff of [place] 13.2, Plt Count 262, MPV 9.4, Immature Gran % (Auto) 0.500, Neut % (Auto) 69.7, Lymph % (Auto) 21.4, [place] % (Auto) 7.0, Eos % (Auto) 0.8, Baso % (Auto) 0.6, Absolute Neuts (auto) 10.2 H, Absolute Lymphs (auto) 3.12, Nucleated RBC % 0, Sodium 133, Potassium 3.9, Chloride 95 L, Carbon Dioxide 22.6, Anion Gap 15, BUN 23 H, Creatinine 1.00, Est GFR (MDRD) Non-Af 54 L, BUN/Creatinine Ratio 22.6 H, Glucose 113 H, Lactic Acid 3.1 H*, Calcium 10.3, Total Bilirubin 1.53 H, AST 39 H, ALT 18, Alkaline Phosphatase 80, Troponin T High Sens 64 H*, Total Protein 8.2, Albumin 3.8, Globulin 4.4 H, Albumin/Globulin Ratio 0.9, Lipase 20 06/11/24 18:50: Urine Color Yellow, Urine Clarity Cloudy, Urine pH 6.5, Ur Specific [employer] 1.015, Urine Protein 100 H, Urine Glucose (UA) Normal, Urine Ketones Negative, Urine Occult Blood 25 H, Urine Nitrite Negative, Urine Bilirubin Negative, Urine Urobilinogen 8 H, Ur Leukocyte Esterase 25 H, Urine RBC 0 SEEN, Urine WBC 0-5 SEEN, Ur Squamous Epith Cells 0 SEEN, Amorphous Sediment 1+, Urine Bacteria 4+, Urine Mucus 0 SEEN 06/11/24 20:31: Troponin T Hi Sens 2 Hr 59 H*, Troponin T Hi Sens 2Hr Delta 5 Imaging Radiology Impression Chest X-Ray 06/11/24 16:58 IMPRESSION: 1. Cardiomegaly with mild pulmonary vascular congestion 2. 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 Reading Location: [facility] Brain CT 06/11/24 18:17 IMPRESSION: 1. No acute intracranial abnormality. 2. Age-appropriate volume loss and remote small vessel ischemic changes 3. Left parietal meningioma Reading Location: [facility] Assessment & Plan Assessment/Plan (1) Urinary tract infection: (2) Atrial fibrillation with RVR: (3) Meningioma, cerebral: (4) Sepsis: (5) Elevated troponin: PLAN: Plan 1. Confusion with altered mental status?admit patient to intensive care unit. Etiology likely caused by urinary tract infection, treat patient with IV Rocephin 1 g every 12 hours, will add neurologic assessments and may consider MRI if mental status does not improve as anticipated 2. Urinary tract infection?IV Rocephin as above. Culture was obtained and antibiotic therapy can be adjusted accordingly when resulted. IV fluids normal saline at a rate of 125 cc/h and repeat lactic acid per routine protocol. Will get CBC BMP in the a.m. 3. Atrial fibrillation with RVR?rate control with beta-marilyn and will add anticoagulation 4. DVT prophylaxis anticoagulation as above Charges/Coding Visit Charges Inpatient E&M: 74699 Init Hosp L2
[2024-06-11 23:39] LABS: TROPONIN VARIANCE 4 HR 3; Troponin T High Sens 4 HR 61 ng/L (<=14)
[2024-06-11] MEDS: Metoprolol Tartrate 50 MG Tablet PO (23:43)
[2024-06-11] MEDS: APIXABAN 5 MG TABLET PO (23:43)
[2024-06-12] VITALS (20 sets, daily range): BP systolic 109–165; BP diastolic 48–102; PULSE 88–117; RESP 16–130; TEMP 36.4–36.7; O2SAT 92–99; BMI 28.5
[2024-06-12 03:45] LABS: Absolute Lymphocyte Count 1.98 X10^3/uL (0.83-4.51); Absolute Neutrophil Count 10.2 X10^3/uL (2.0-7.7); Basophil# 0.06 X10^3/uL; Basophil% 0.4 % (0-1); Eosinophils% 0.7 % (0-5); Hematocrit 43.8 % (37-47); Hemoglobin 14.7 g/dL (12.0-15.0); Lymphocyte # 1.98 X10^3/ul (0.83-4.51); Lymphocyte % 14.7 % (19-41); Mean Corp Hgb Conc 33.6 g/dL (32-36); Mean Corpuscular Hgb 32.5 pg (27.0-32.0); Mean Corpuscular Volume 96.7 fL (81-99); Mean Platelet Vol. 9.2 fl (6.2-12.0); Monocyte# 1.09 X10^3/uL; Monocyte% 8.1 % (0-10); NRBC Flagged by Analyzer 0 % (0-5); Neutrophil # 10.16 X10^3/uL (2.7-7.7); Neutrophil % 75.5 % (47-70); Platelet Count 264 K/mm3 (150-450); RBC Distribution Width CV 13.2 % (11.6-14.6); Red Blood Count 4.53 M/mm3 (4.2-5.4); White Blood Count 13.5 K/mm3 (4.4-11.0)
[2024-06-12 04:11] LABS: Anion Gap 13 (5-15); BUN 21 mg/dL (4-19); BUN/Creat Ratio 24.6 RATIO (10-20); Calcium,Total 9.9 mg/dL (7.6-11.0); Carbon Dioxide 25.4 mmol/L (21.0-32.0); Chloride 95 mmol/L (98-108); Creatinine, Serum 0.85 mg/dL (0.70-1.20); EST Glomerular Filtration Rate 66 (>60); Estimated Creatinine Clearance 42.05 ml/min (50-250); Glucose 132 mg/dL (70-99); Potassium 3.4 mmol/L (3.3-5.1); Sodium Level 134 mmol/L (133-145)
[2024-06-12] MEDS: APIXABAN 5 MG TABLET PO ×2 (08:49→20:58)
[2024-06-12] MEDS: Ceftriaxone 1 GM/50 ML BAG IV ×2 (08:49→20:57)
[2024-06-12] MEDS: Metoprolol Tartrate 50 MG Tablet PO ×2 (08:49→20:57)
--- NOTE | 2024-06-12 09:00 | PCM.PN.HOSP ---
Subjective Subjective Doing well, no issues overnight. Remains tachycardic and is little bit hard of hearing Objective Data Objective Data Vital Signs: Vital Signs Temp Pulse Resp BP Pulse Ox O2 Del Method O2 Flow Rate 97.5 F L 117 H 20 H 132/95 H 92 Nasal Cannula 2 06/12/24 04:00 06/12/24 07:00 06/12/24 07:00 06/12/24 07:00 06/12/24 07:00 06/12/24 07:00 06/12/24 07:00 Oxygen Flow Rate (L/min) 2 Oxygen Delivery Method Nasal Cannula Weight: 155 lb 3.287 oz Body Mass Index (BMI) 28.5 Intake & Output: Intake and Output for Last 24 Hours 06/11/24 06/12/24 06/13/24 03:59 03:59 03:59 Intake Total 550 / 550 Output Total 950 / 950 150 / 150 Balance -400 / -400 -150 / -150 Lab / Micro Data 06/12/24 03:25 06/12/24 03:25 Labs: Laboratory Results - last 24 hr 06/11/24 18:45: WBC 14.6 H, RBC 4.59, Hgb 14.9, Hct 45.0, MCV 98.0, MCH 32.5 H, MCHC 33.1, RDW Std Deviation 47.4 H, RDW Coeff of [place] 13.2, Plt Count 262, MPV 9.4, Immature Gran % (Auto) 0.500, Neut % (Auto) 69.7, Lymph % (Auto) 21.4, [place] % (Auto) 7.0, Eos % (Auto) 0.8, Baso % (Auto) 0.6, Absolute Neuts (auto) 10.2 H, Absolute Lymphs (auto) 3.12, Nucleated RBC % 0, Sodium 133, Potassium 3.9, Chloride 95 L, Carbon Dioxide 22.6, Anion Gap 15, BUN 23 H, Creatinine 1.00, Est GFR (MDRD) Non-Af 54 L, BUN/Creatinine Ratio 22.6 H, Glucose 113 H, Lactic Acid 3.1 H*, Calcium 10.3, Total Bilirubin 1.53 H, AST 39 H, ALT 18, Alkaline Phosphatase 80, Troponin T High Sens 64 H*, Total Protein 8.2, Albumin 3.8, Globulin 4.4 H, Albumin/Globulin Ratio 0.9, Lipase 20 06/11/24 18:50: Urine Color Yellow, Urine Clarity Cloudy, Urine pH 6.5, Ur Specific [place] 1.015, Urine Protein 100 H, Urine Glucose (UA) Normal, Urine Ketones Negative, Urine Occult Blood 25 H, Urine Nitrite Negative, Urine Bilirubin Negative, Urine Urobilinogen 8 H, Ur Leukocyte Esterase 25 H, Urine RBC 0 SEEN, Urine WBC 0-5 SEEN, Ur Squamous Epith Cells 0 SEEN, Amorphous Sediment 1+, Urine Bacteria 4+, Urine Mucus 0 SEEN 06/11/24 20:31: Troponin T Hi Sens 2 Hr 59 H*, Troponin T Hi Sens 2Hr Delta 5, B-Natriuretic Peptide 4739.0 H 06/11/24 22:37: Troponin T Hi Sens 4Hr 61 H*, Troponin T Hi Sens 4Hr Delta 3 06/12/24 03:25: WBC 13.5 H, RBC 4.53, Hgb 14.7, Hct 43.8, MCV 96.7, MCH 32.5 H, MCHC 33.6, RDW Std Deviation 47.0 H, RDW Coeff of [place] 13.2, Plt Count 264, MPV 9.2, Immature Gran % (Auto) 0.600, Neut % (Auto) 75.5 H, Lymph % (Auto) 14.7 L, [place] % (Auto) 8.1, Eos % (Auto) 0.7, Baso % (Auto) 0.4, Absolute Neuts (auto) 10.2 H, Absolute Lymphs (auto) 1.98, Nucleated RBC % 0, Sodium 134, Potassium 3.4, Chloride 95 L, Carbon Dioxide 25.4, Anion Gap 13, BUN 21 H, Creatinine 0.85, Estim Creat Clear Calc 42.05 L, Est GFR (MDRD) Non-Af 66, BUN/Creatinine Ratio 24.6 H, Glucose 132 H, Calcium 9.9 Radiography Diagnostic Testing: Radiology Impression Chest X-Ray 06/11/24 16:58 IMPRESSION: 1. Cardiomegaly with mild pulmonary vascular congestion 2. 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 [facility] 06/11/24 18:17 IMPRESSION: 1. No acute intracranial abnormality. 2. Age-appropriate volume loss and remote small vessel ischemic changes 3. Left parietal meningioma Reading Location: [facility] Physical Exam Narrative General: Alert, Oriented x3, Cooperative, No apparent distress HEENT: Atraumatic, PERRLA, EOMI, Normocephalic, hard of hearing Oral: Moist Mucosa Neck: Supple, No JVD Lungs: Diminished, Normal air movement, No rhonchi, No wheeze, No rales Cardiovascular: Irregular rate and rhythm, Normal S1, Normal S2, No murmurs Abdomen: Soft, Non Tender, Non-Distended, No Hepato-splenomegaly Extremities: No edema, Capillary Refill Less than 3 Seconds Skin: No rashes, No breakdown Musculoskeletal: No Tenderness to Palpation of Joints or Extremities Neurological: No focal neurological deficits, Motor Exam 5/5 strength throughout, Sensory exam intact to light touch and pain Psych/Mental Status: Normal Affect, Appropriate Assessment & Plan Assessment/Plan (1) Urinary tract infection: (2) Atrial fibrillation with RVR: (3) Sepsis: PLAN: Plan 1. Metabolic encephalopathy secondary to UTI ? Continue with antibiotics, cultures pending ? Does not have sepsis secondary to insurance ? PT/OT 2. A-fib with RVR/essential HTN ? Unclear as to her home medications at the moment, continue with Eliquis and p.o. metoprolol ? Will attempt to obtain medication list DVT: Eliquis Charges/Coding Visit Charges Inpatient E&M: 27514 [facility] Hosp L2
--- NOTE | 2024-06-12 09:04 | ECHOD_ITS ---
Reason For Study Reason For Study: ATRIAL FIB-FLUTTER Procedure This was a 2D Doppler, Color Flow transthoracic echocardiogram. Exam performed portable in ICU/CCU. Left Ventricle Normal LV size. Mild concentric left ventricular hypertrophy. Mild to moderate LV systolic dysfunction. Estimated LVEF 40%. Diastolic function indeterminate. Right Ventricle Normal RV size. Mild to moderate global right ventricular systolic dysfunction. Atria There is severe biatrial dilatation. Mitral Valve Severe posterior mitral annular calcification. Moderate to severe mitral valve regurgitation. Tricuspid Valve Moderate to severe tricuspid valve regurgitation. Right ventricular systolic pressure estimated at 75 mmHg. Aortic Valve Aortic sclerosis, no stenosis. Mild (1+) aortic valve insufficiency. Pulmonic Valve The pulmonic valve is not well visualized. Trivial pulmonic valve insufficiency. Great Vessels Normal sized aortic root. Pericardium/Pleural No pericardial effusion. MMode/2D Measurements & Calculations LVIDd: 4.0 cm IVSd: 1.2 cm Ao root diam: 3.2 cm LVIDs: 3.0 cm LVPWd: 1.4 cm RVDd: 3.5 cm FS: 25.6 % LAV(MOD-bp): 135.3 ml LVAd ap4: 17.6 cm2 SV(MOD-sp4): 18.1 ml LAV(MOD-bp) Indexed: 78.9 ml/m2 LVLd ap4: 5.7 cm SI(MOD-sp4): 10.5 ml/m2 LAV(MOD-sp2): 130.5 ml EDV(MOD-sp4): 45.1 ml LAV(MOD-sp4): 130.7 ml EDV(sp4-el): 46.3 ml LVAs ap4: 12.7 cm2 LVLs ap4: 5.2 cm ESV(MOD-sp4): 27.0 ml ESV(sp4-el): 26.1 ml EF(MOD-sp4): 40.1 % EF(sp4-el): 43.6 % SV(sp4-el): 20.2 ml LA A4 area: 35.3 cm2 LA dimension(2D): 5.5 cm RA A4 area: 27.7 cm2 TAPSE: 1.6 cm Doppler Measurements & Calculations MV E max vilma: 87.7 cm/sec Ao V2 max: 140.3 cm/sec AI max vilma: 402.3 cm/sec Ao max P.9 mmHg AI max P.8 mmHg AI dec slope: 218.6 cm/sec2 AI P1/2t: 539.2 msec LV V1 max: 59.7 cm/sec PA V2 max: 58.3 cm/sec TR max vilma: 388.1 cm/sec LV V1 max P.4 mmHg TR max P.2 mmHg ECHO/Echo Complete Interpretation Summary Mild concentric left ventricular hypertrophy. Mild to moderate LV systolic dysfunction. Estimated LVEF 40%. Diastolic functio n indeterminate. Mild to moderate global right ventricular systolic dysfunction. There is severe biatrial dilatation. Severe posterior mitral annular calcification. Moderate to severe mitral valve regurgitation. Moderate to severe tricuspid valve regurgitation. Right ventricular systolic pr essure estimated at 75 mmHg. Mild (1+) aortic valve insufficiency. Ordering Physician: Junaid Travis Referring Physician: KODAK HARDING Performed By: Gloria Claudio RDCS
--- NOTE | 2024-06-12 11:05 | CASEMGMT ---
MERY SILVERMAN Face to Face with patient for initial transition planning/care coordination assessment. RN CM introduced self and role at [facility]. Patient sitting in chair, alert and oriented, sons at bedside. Patient and sons willing to participate in assessment and is able to answer all questions appropriately. Care providers, pharmacy, and demographics verified. Strata: 1 PCP: [facility] Specialists: none Preferred Pharmacy: [facility] Insurance: [employer] Prescription Benefit: yes Living Will/HPOA: yes, son Benjamín Woods LNOK: sons Living Arrangements: Patient lives alone in a single story home with 3 steps to enter, no railing. Patient is independent at home Transportation: son, self DME/HHC: Patient has shower chair, raised toilet, cane, rollator at home. No previous HHC or SNF. Will monitor for home oxygen at discharge, prefers [employer]. Patient wishes to discharge home, will monitor progress with therapy and need for HHC. Patient states she has no further needs or concerns at this time. CM to follow for discharge planning needs that may arise. Disposition Plan: Patient to discharge home with family support and follow-up plans in place. Will monitor for HHC and possible oxygen. Farheen PEREZ, RN, CM
[2024-06-13] VITALS (9 sets, daily range): BP systolic 119–148; BP diastolic 78–94; PULSE 107–143; RESP 18–28; TEMP 36.3–36.9; O2SAT 93–97; BMI 28.1
[2024-06-13 05:33] LABS: Absolute Lymphocyte Count 1.86 X10^3/uL (0.83-4.51); Absolute Neutrophil Count 12.9 X10^3/uL (2.0-7.7); Basophil# 0.08 X10^3/uL; Basophil% 0.5 % (0-1); Eosinophil# 0.09 X10^3/uL; Eosinophils% 0.6 % (0-5); Hematocrit 43.6 % (37-47); Hemoglobin 14.6 g/dL (12.0-15.0); Lymphocyte # 1.86 X10^3/ul (0.83-4.51); Lymphocyte % 11.5 % (19-41); Mean Corp Hgb Conc 33.5 g/dL (32-36); Mean Corpuscular Hgb 32.2 pg (27.0-32.0); Mean Corpuscular Volume 96.2 fL (81-99); Mean Platelet Vol. 9.2 fl (6.2-12.0); Monocyte# 1.21 X10^3/uL; Monocyte% 7.5 % (0-10); NRBC Flagged by Analyzer 0 % (0-5); Neutrophil # 12.87 X10^3/uL (2.7-7.7); Neutrophil % 79.4 % (47-70); Platelet Count 252 K/mm3 (150-450); RBC Distribution Width CV 13.3 % (11.6-14.6); Red Blood Count 4.53 M/mm3 (4.2-5.4); White Blood Count 16.2 K/mm3 (4.4-11.0)
[2024-06-13 05:54] LABS: Anion Gap 13 (5-15); BUN 26 mg/dL (4-19); BUN/Creat Ratio 29.9 RATIO (10-20); Carbon Dioxide 24.1 mmol/L (21.0-32.0); Chloride 99 mmol/L (98-108); Creatinine, Serum 0.87 mg/dL (0.70-1.20); EST Glomerular Filtration Rate 64 (>60); Estimated Creatinine Clearance 40.91 ml/min (50-250); Glucose 122 mg/dL (70-99); Sodium Level 136 mmol/L (133-145)
[2024-06-13] MEDS: Metoprolol Tartrate 50 MG Tablet PO ×2 (08:43→21:25)
[2024-06-13] MEDS: APIXABAN 5 MG TABLET PO ×2 (08:43→21:26)
--- NOTE | 2024-06-13 09:23 | PCM.PN.HOSP ---
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1 Intake & Output: Intake and Output for Last 24 Hours 06/11/24 06/12/24 06/13/24 23:59 23:59 23:59 Intake Total 550 / 550 100 / 100 360 / 360 Output Total 1300 / 1300 Balance 550 / 550 -1200 / -1200 360 / 360 Lab / Micro Data Attestation: I reviewed the patient's lab results. 06/13/24 05:25 06/13/24 05:25 Labs: Laboratory Results - last 24 hr 06/12/24 03:25: TSH 3.320 06/13/24 05:25: WBC 16.2 H, RBC 4.53, Hgb 14.6, Hct 43.6, MCV 96.2, MCH 32.2 H, MCHC 33.5, RDW Std Deviation 47.0 H, RDW Coeff of Hong 13.3, Plt Count 252, MPV 9.2, Immature Gran % (Auto) 0.500, Neut % (Auto) 79.4 H, Lymph % (Auto) 11.5 L, [place] % (Auto) 7.5, Eos % (Auto) 0.6, Baso % (Auto) 0.5, Absolute Neuts (auto) 12.9 H, Absolute Lymphs (auto) 1.86, Nucleated RBC % 0, Sodium 136, Potassium 4.0, Chloride 99, Carbon Dioxide 24.1, Anion Gap 13, BUN 26 H, Creatinine 0.87, Estim Creat Clear Calc 40.91 L, Est GFR (MDRD) Non-Af 64, BUN/Creatinine Ratio 29.9 H, Glucose 122 H, Calcium 10.0 Micro: Microbiology 06/11/24 18:50 Urine, Clean Catch Urine Culture - Preliminary Presumptive E. coli Alpha hemolytic organism Radiography Diagnostic Testing: Radiology Impression Echocardiogram 06/12/24 09:04 Interpretation Summary Mild concentric left ventricular hypertrophy. Mild to moderate LV systolic dysfunction. Estimated LVEF 40%. Diastolic function indeterminate. Mild to moderate global right ventricular systolic dysfunction. There is severe biatrial dilatation. Severe posterior mitral annular calcification. Moderate to severe mitral valve regurgitation. Moderate to severe tricuspid valve regurgitation. Right ventricular systolic pressure estimated at 75 mmHg. Mild (1+) aortic valve insufficiency. Ordering Physician: Junaid Travis Referring Physician: KODAK HARDING Performed By: Gloria Claudio RDCS Physical Exam Const alert, oriented x3 and no apparent distress HEENT head/scalp atraumatic Eyes PERRL Neck no lymphadenopathy Resp Resp Narrative: Bilateral crepitations present in the infrascapular and interscapular regions Cardio Cardio Narrative: Tachycardia GI normal to inspection, nondistended, normoactive bowel sounds Extremity normal to inspection Neuro oriented x3, CN's II-XII intact bilaterally and moves all extremities Psych affect normal Assessment & Plan Assessment/Plan (1) Sepsis: PLAN: Plan 80-year-old female is admitted for concerns regarding UTI with urosepsis, associated acute decompensated heart failure in the setting of ongoing A-fib with RVR. Her echocardiogram shows severe tricuspid regurgitation and elevated pulmonary systolic pressures so she has likely secondary pulmonary hypertension contributing to her symptoms 1. #UTI with urosepsis #Urine cultures positive for E. coli (sensitive to ceftriaxone) -Continue ceftriaxone -Afebrile, continue to monitor 2. #A-fib with RVR #Pulmonary artery hypertension with severe tricuspid regurgitation #ADHF -Injection Lasix 40 mg once to assess response -Continue Eliquis -Close monitoring of heart rate -Metoprolol tartrate 50 mg twice daily 3. #Acute on chronic respiratory failure -Likely because of #2 -Continue to monitor, saturation around 92% at this time Charges/Coding Visit Charges Inpatient E&M: 77671 Init Hosp L2
[2024-06-13] MEDS: Ceftriaxone 1 GM/50 ML BAG IV ×2 (09:38→21:25)
[2024-06-13] MEDS: 0.9% Saline Lock 10 ML Syringe IV ×2 (09:38→12:04)
[2024-06-13] MEDS: Acetaminophen 325 MG Tablet 650 MG PO ×2 (10:43→18:42)
[2024-06-13] MEDS: Furosemide 40 MG/4 ML Vial IV (12:04)
--- NOTE | 2024-06-13 14:49 | CASEMGMT ---
MERY CM into pt room to discuss dc planning with pt. Discussed HHC for SN and/or therapy, pt quickly states no. Pt states she doesn't need anything to go home. Pt is currently on RA. Pt prefers to return home without services.
[2024-06-14] VITALS (9 sets, daily range): BP systolic 109–134; BP diastolic 68–90; PULSE 97–112; RESP 16–23; TEMP 36.3–36.7; O2SAT 94–95; BMI 28.0
[2024-06-14] MEDS: Levothyroxine 112 MCG Tablet PO (06:21)
[2024-06-14] MEDS: Acetaminophen 325 MG Tablet 650 MG PO ×3 (06:21→18:49)
[2024-06-14] MEDS: APIXABAN 5 MG TABLET PO ×2 (08:51→21:42)
[2024-06-14] MEDS: Ceftriaxone 1 GM/50 ML BAG IV ×2 (08:52→21:42)
[2024-06-14] MEDS: Metoprolol Tartrate 50 MG Tablet PO ×2 (08:52→21:42)
[2024-06-14] MEDS: 0.9% Saline Lock 10 ML Syringe IV ×3 (08:53→10:38)
--- NOTE | 2024-06-14 10:02 | PCM.PN.HOSP ---
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) Unspecified atrial fibrillation (06/11/24) Urinary tract infection, site not specified (06/11/24) Other specified abnormal findings of blood chemistry (06/11/24) Subjective Subjective Subjectively improved, no palpitations Eager for discharge Objective Data Objective Data Vital Signs: Vital Signs Temp Pulse Resp BP Pulse Ox O2 Del Method O2 Flow Rate 97.3 F L 98 20 H 111/79 95 Room Air 2 06/14/24 03:00 06/14/24 08:52 06/14/24 03:00 06/14/24 08:52 06/14/24 03:00 06/14/24 03:00 06/13/24 07:10 Oxygen Flow Rate (L/min) 2 Oxygen Delivery Method Room Air Weight: 153 lb 3.54 oz Body Mass Index (BMI) 28.0 Intake & Output: Intake and Output for Last 24 Hours 06/12/24 06/13/24 06/14/24 23:59 23:59 23:59 Intake Total 100 / 100 460 / 460 Output Total 1300 / 1300 Balance -1200 / -1200 460 / 460 Lab / Micro Data Attestation: I reviewed the patient's lab results. 06/13/24 05:25 06/13/24 05:25 Micro: Microbiology 06/11/24 18:50 Urine, Clean Catch Urine Culture - Final Presumptive E. coli Aerococcus sanguinicola Physical Exam Const alert, oriented x3 and no apparent distress HEENT head/scalp atraumatic Eyes PERRL and EOMs intact bilaterally Neck no lymphadenopathy Resp normal respiratory effort and no retractions Auscultation: crackles bilateral Cardio Cardio Narrative: Tachycardia present GI normal to inspection, nondistended, normoactive bowel sounds Extremity normal to inspection Neuro oriented x3 and CN's II-XII intact bilaterally Psych affect normal Assessment & Plan Assessment/Plan (1) Urinary tract infection: PLAN: Plan 80-year-old female is admitted for concerns regarding UTI with urosepsis, associated acute decompensated heart failure in the setting of ongoing A-fib with RVR. Her echocardiogram shows severe tricuspid regurgitation and elevated pulmonary systolic pressures so she has likely secondary pulmonary hypertension contributing to her symptoms. She responded to 1 dose of Lasix IV, will repeat the dose today and monitor her heart rate, also heart failure education. 1. #UTI with urosepsis #Urine cultures positive for E. coli (sensitive to ceftriaxone) -Continue ceftriaxone -Afebrile, continue to monitor 2. #A-fib with RVR #Pulmonary artery hypertension with severe tricuspid regurgitation #ADHF -Repeat IV 40 Lasix, if responds well then we will switch to p.o. Lasix from tomorrow -Continue Eliquis -Close monitoring of heart rate -Metoprolol tartrate 50 mg twice daily 3. #Acute on chronic respiratory failure -Likely because of #2 -On room air, saturation is better -Continue to monitor, saturation around 92% at this time DVT prophylaxis: On Eliquis Discharge planning: Needs PT/OT/case management, can be transferred to PCU/MS
[2024-06-14 10:26] LABS: Absolute Lymphocyte Count 1.94 X10^3/uL (0.83-4.51); Basophil# 0.08 X10^3/uL; Basophil% 0.5 % (0-1); Eosinophil# 0.12 X10^3/uL; Eosinophils% 0.7 % (0-5); Hematocrit 43.8 % (37-47); Hemoglobin 14.7 g/dL (12.0-15.0); Lymphocyte # 1.94 X10^3/ul (0.83-4.51); Mean Corp Hgb Conc 33.6 g/dL (32-36); Mean Corpuscular Hgb 32.7 pg (27.0-32.0); Mean Corpuscular Volume 97.3 fL (81-99); Mean Platelet Vol. 9.3 fl (6.2-12.0); Monocyte% 6.2 % (0-10); NRBC Flagged by Analyzer 0 % (0-5); Neutrophil # 12.97 X10^3/uL (2.7-7.7); Neutrophil % 79.9 % (47-70); Platelet Count 260 K/mm3 (150-450); RBC Distribution Width CV 13.3 % (11.6-14.6); RBC Distribution Width SD 47.5 fl (35.1-43.9); White Blood Count 16.2 K/mm3 (4.4-11.0)
[2024-06-14] MEDS: Furosemide 40 MG/4 ML Vial IV (10:38)
[2024-06-14 10:52] LABS: ALB/GLOB Ratio 0.8 RATIO (0.9-2.4); AST(SGOT) 19 U/L (<=31); Alanine Aminotransfer ALT/SGPT 14 U/L (<=34); Albumin, Serum 3.3 g/dL (3.4-4.8); Alkaline Phosphatase 70 U/L (35-104); Anion Gap 13 (5-15); BUN 33 mg/dL (4-19); BUN/Creat Ratio 29.5 RATIO (10-20); Calcium,Total 9.7 mg/dL (7.6-11.0); Carbon Dioxide 23.8 mmol/L (21.0-32.0); Chloride 97 mmol/L (98-108); Creatinine, Serum 1.11 mg/dL (0.70-1.20); EST Glomerular Filtration Rate 48 (>60); Globulin 4.2 g/dL (2.2-4.2); Glucose 166 mg/dL (70-99); Potassium 3.4 mmol/L (3.3-5.1); Protein, Total 7.5 g/dL (5.9-8.4); Sodium Level 135 mmol/L (133-145)
[2024-06-15] MEDS: Acetaminophen 325 MG Tablet 650 MG PO ×2 (01:43→09:13)
[2024-06-15 03:00] VITALS: BP 122/85; PULSE 90; RESP 16; TEMP 36.6; O2SAT 92
[2024-06-15] MEDS: Levothyroxine 112 MCG Tablet PO (05:44)
[2024-06-15] MEDS: 0.9% Saline Lock 10 ML Syringe IV (05:44)
[2024-06-15 09:00] VITALS: BP 135/71; PULSE 99; RESP 16; TEMP 36.7; O2SAT 95
[2024-06-15 09:12] VITALS: BP 135/71; PULSE 99
[2024-06-15] MEDS: Metoprolol Tartrate 50 MG Tablet PO (09:12)
[2024-06-15] MEDS: APIXABAN 5 MG TABLET PO (09:13)
[2024-06-15] MEDS: Ceftriaxone 1 GM/50 ML BAG IV (09:13)
[2024-06-15] MEDS: Furosemide 40 MG Tablet PO (10:27)
--- NOTE | 2024-06-15 13:43 | PCM.DC.SUM ---
Providers Date of Admission: 06/11/24 Primary Care Physician: Dr. Darrin Iniguez MD Reason For Visit: URINARY TRACT INFETION WITH SEPSIS, CHANGE IN Diagnosis Discharge Diagnosis (1) Urinary tract infection: Status: Acute Code(s): N39.0 - Urinary tract infection, site not specified Plan 1. #UTI with urosepsis #Urine cultures positive for E. coli (sensitive to ceftriaxone) -Received 5 days of IV ceftriaxone, will give p.o. cephalexin for 2 days -Afebrile, continue to monitor 2. 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 -Continue Eliquis -Close monitoring of heart rate -Metoprolol tartrate 50 mg twice daily 3. #Acute on chronic respiratory failure -Likely because of #2 -On room air, saturation is better -Continue to monitor, saturation around 92% at this time DVT prophylaxis: On Eliquis Discharge planning: Needs PT/OT/case management, can be transferred to PCU/MS Medications at Discharge Home Medications levothyroxine 112 mcg tablet 112 mcg PO DAILY thyroid 06/12/24 losartan 100 mg-hydrochlorothiazide 25 mg tablet 1 tab PO QHS Blood Pressure 06/12/24 nebivolol 5 mg tablet (Bystolic) 5 mg PO DAILY blood pressure 06/12/24 verapamil 360 mg 24 hr capsule,extended release 360 mg PO DAILY blood pressure 06/12/24 apixaban 5 mg tablet (Eliquis) 5 mg PO BID #30 tabs 06/15/24 cephalexin 500 mg capsule 500 mg PO BID 2 days #4 caps 06/15/24 furosemide 20 mg tablet 20 mg PO BIDLX 30 days #60 tabs 06/15/24 Hospital Course Operations None Procedures None Summary of Care Provided Minutes Spent on Discharge: 20 Hospital Course: 88-year-old female is admitted for concerns regarding UTI with urosepsis, associated acute decompensated heart failure in the setting of ongoing A-fib with RVR. . Her echocardiogram shows severe tricuspid regurgitation and elevated pulmonary systolic pressures so she has likely secondary pulmonary hypertension contributing to her symptoms. Started on IV Lasix and with negative fluid balance IV saturation improved and she was off oxygen. She is symptomatically doing much better, feels eager to go home and has good family support at home. She has some MARITZA after initiation of Lasix, she is encouraged to follow-up with her PCP closely after discharge She was previously on aspirin 325 mg daily, we will change her to Eliquis 5 mg twice daily. 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 Physical Exam Const alert and oriented x3 General Appearance: cooperative HEENT normocephalic Eyes PERRL Neck no lymphadenopathy Resp normal respiratory effort Resp Narrative: Left intra-scapular crepitations Cardio regular rate Cardio Narrative: Irregular rhythm GI normal to inspection, nondistended, normoactive bowel sounds Extremity normal to inspection and full ROM Skin no rashes or lesions noted Neuro oriented x3, CN's II-XII intact bilaterally, moves all extremities and no focal motor deficits Psych affect normal Weight / BMI Weight Weight: 153 lb 3.54 oz Body Mass Index (BMI) 28.0 ABG / Lab / Microbiology Data 06/14/24 10:20 06/14/24 10:20 Microbiology: Microbiology 06/11/24 18:50 Urine, Clean Catch Urine Culture - Final Presumptive E. coli Aerococcus sanguinicola D/C Instructions DC O2, CPAP, BIPAP Needs Home O2 Discharge instructions: No Meaningful Use Info Meaningful Use Meaningful Use Diagnoses (Choose all that apply): None applicable Ischemic Stroke Statin Dosing Therapy Reference: STATIN DOSE THERAPY REFERENCE: * Patients > 75 years receive moderate or high dose statin therapy. * Patients 75 years or YOUNGER should receive HIGH intensity statin dose unless contraindicated. You will be required to document reason for non-treatment if statin daily dose does not meet guidelines. HIGH DOSE STATIN THERAPY DAILY Atorvastatin > than or = to 40 mg Rosuvastatin > than or = to 20 mg Amlodipine + Atorvastatin > than or = to 2.5/40 mg Ezetimibe + Simvastatin 10/80 mg Simvastatin 80mg Discharge Plan Admission Admit Date/Time: 06/11/24 22:45 Primary Reason for Your Visit: Urinary tract infection Attending Provider: Aster Ramsey Primary Care Provider: Darrin Iniguez Consulting Providers: Mio Benitez; Junaid Travis Discharge Orders/Prescriptions Prescriptions: New furosemide 20 mg Tablet 20 mg PO BIDLX 30 Days Qty: 60 0RF Eliquis 5 mg Tablet 5 mg PO BID Qty: 30 0RF cephalexin 500 mg capsule 500 mg PO BID 2 Days Qty: 4 0RF Continued levothyroxine 112 mcg tablet 112 mcg PO DAILY losartan-hydrochlorothiazide 100-25 mg tablet 1 tab PO QHS nebivolol [Bystolic] 5 mg tablet 5 mg PO DAILY verapamil 360 mg capsule,ext rel. pellets 24 hr 360 mg PO DAILY Discontinued aspirin 325 mg tablet 325 mg PO QHS Referrals / Follow Up: Darrin Iniguez MD [Primary Care Provider] - Disposition Disposition (needs filled in before D/C Order can be placed): Home, Self Care
--- NOTE | 2024-06-15 14:26 | CASEMGMT ---
MERY SILVERMAN noted DC instructions. MERY SILVERMAN called pharmacy in regard to Eliquis, pharmacist said cost is $285.26, RN ANDRA instructed pharmacy to apply savings card. MERY SILVERMAN into pt room, discussed medications and instructed pt to discuss cost with doctor at next appointment if they intend to keep pt on an anticoagulant. Pt verbalized understanding. Her son from [place] is in room with her and plans to take her home. Her sons plan to take turns staying with her for a little while. Pt denies any DC needs at this time.
[2024-06-25 15:04] LABS: Pro- Brain NATRIURETIC PEPTIDE 4739 pg/mL (<=1800)
== END 2024-06-15 15:58 | disposition home or self-care (01) | DRG 689 ==
LOC: ED 19:34 → ICU 06-12 00:08 → PCU 06-14 18:20
PROVIDERS: Family Medicine; Admitting Provider Family Medicine; Emergency Provider Emergency Medicine; PCP Family Medicine; Referring Provider Family Medicine; Visit Provider Internal Medicine
DX: N39.0 Urinary tract infection, site not specified (principal); J96.20 Acute and chronic respiratory failure, unspecified whether with hypoxia or hypercapnia; G93.41 Metabolic encephalopathy; N17.9 Acute kidney failure, unspecified; I27.21 Secondary pulmonary arterial hypertension; I11.0 Hypertensive heart disease with heart failure; I07.1 Rheumatic tricuspid insufficiency; I48.91 Unspecified atrial fibrillation; D32.0 Benign neoplasm of cerebral meninges; I50.9 Heart failure, unspecified; B96.20 Unspecified Escherichia coli [E. coli] as the cause of diseases classified elsewhere; Z79.01 Long term (current) use of anticoagulants; Z79.890 Hormone replacement therapy; Z79.899 Other long term (current) drug therapy
CPT/HCPCS: 70450; 71045; 80048; 80053; 81001; 83605; 83690; 83880; 84443; 84484; 85025; 87040; 87077; 87086; 87088; 87186; 93005; 93306; 94762; 97162; 99285; A4216; J0696; J1938

== ENCOUNTER 2024-10-22 14:53 | Emergency (ER) | payer MEDICARE, SELFPAY ==
[2024-10-22 14:54] VITALS: BP 120/105; PULSE 116; RESP 18; TEMP 36.8; O2SAT 94
[2024-10-22 16:00] VITALS: O2SAT 93
--- NOTE | 2024-10-22 16:06 | EKG12_ITS ---
Test Reason : Blood Pressure : */* mmHG Vent. Rate : 88 BPM Atrial Rate : * BPM P-R Int : * ms QRS Dur : 92 ms QT Int : 378 ms P-R-T Axes : * 5 11 degrees QTcB Int : 457 ms Atrial fibrillation with premature ventricular or aberrantly conducted complexes Low voltage QRS Cannot rule out Anterior infarct , age undetermined Abnormal ECG Confirmed by Benjamín Hendrix ([id number]), mapping editor ANSON COHEN ([id number]) on 10/24/2024 11:19:43 AM Referred By: Jeyson Mayer Confirmed By: Benjamín Hendrix
--- NOTE | 2024-10-22 16:07 | EDS_ITS ---
HPI History of Present Illness Chief Complaint: Shortness of Breath Narrative Narrative: 89-year-old female past medical history of atrial fibrillation on Eliquis presents with her son because of increasing shortness of breath and generalized weakness that she has had for the last few months. They relate history that back in June, approximately 4 months ago she was admitted for urosepsis. She stayed in the hospital for 5 days. It affected her memory. Since then, she states that she has shortness of breath and dyspnea on exertion. She denies any recent fevers or chills, no cough, no dysuria or hematuria. States her legs are swollen, and there is a small ulceration on her right medial lower leg that started to turn red today. She is concerned because she feels generally weak for the past few months and short of breath with dyspnea on exertion. [facility] Medical History Hypertension Home Medications ?Medication ?Instructions ?Recorded ?Last Taken ?Type losartan 100 1 tab PO QHS Blood Pressure 06/12/24 10/21/24 History mg-hydrochlorothiazide 25 mg tablet nebivolol 5 mg tablet (Bystolic) 5 mg PO DAILY blood p ressure 06/12/24 10/21/24 History verapamil 360 mg 24 hr 360 mg PO DAILY blood pressu re 06/12/24 10/22/24 History capsule,extended release apixaban 5 mg tablet (Eliquis) 5 mg PO BID #30 tabs 10/22/24 Rx amoxicillin 875 mg-potassium 875 mg PO Q12H 7 days #14 TABLETS 10/22/24 Unknown Rx clavulanate 125 mg tablet furosemide 20 mg tablet 20 mg PO DAILY 10/22/2410/09 History levothyroxine 125 mcg tablet 125 mcg PO DAILY 10/22/24 10/22/24 History (Euthyrox) Allergy/AdvReac Type Severity Reaction Status Date / Time No Known Allergies Allergy Verified 10/22/24 14:56 Social History Smoking Status: Never smoker ROS ROS ED ROS Narrative Review of systems positive for generalized weakness, shortness of breath and dyspnea on exertion for months. No recent fevers or chills, no nausea or vomiting. Positive leg swelling over the last few months as well. Small ulcer on right lower leg that reddened today. No dysuria or hematuria. EXAM Physical Exam Narrative Exam Narrative: Afebrile. Vital signs noted. Nontoxic-appearing. Cardiovascular examination reveals regular rate and rhythm. Lungs are clear to auscultation bilaterally. Abdomen is soft and nontender with normal active bowel sounds. No guarding or rebound. Neurological examination is nonfocal, nonlateralizing. Bilateral symmetric pedal edema at +1 pitting. Positive ulceration with minimal surrounding erythema right lower extremity. No crepitance. Awake, alert, oriented. Const Vital Signs: 10/22/24 14:54 10/22/24 16:00 10/22/24 16:12 Temperature 98.2 F Temperature Source Oral Pulse Rate 116 H Respiratory Rate 18 Respiratory Effort Short of Breath Labored Short of Breath Respiratory Depth Shallow Blood Pressure 120/105 H Blood Pressure Mean 110 Pulse Ox 94 Oxygen Delivery Method Room Air Room Air 10/22/24 17:47 10/22/24 19:00 Temperature Temperature Source Pulse Rate 99 94 Respiratory Rate 24 H 19 H Respiratory Effort Respiratory Depth Blood Pressure 137/93 H Blood Pressure Mean 107 Pulse Ox 92 90 Oxygen Delivery Method Room Air Room Air MDM MDM MDM Narrative Medical decision making narrative: Differential diagnosis includes but not limited to pneumonia versus pneumothorax versus CHF. She has had 4 months of increasing shortness of breath and dyspnea on exertion. History and physical does not support pneumonia or pneumothorax. Regarding her generalized weakness she may have dehydration or other electrolyte imbalance. I have low concern for pulmonary embolism because she is already being treated with Eliquis 5 mg twice a day. In discussion with the patient and her son, they state that he visits frequently, and they decided today that they should do more investigation of her chronic problems that she has had for the last few months instead of waiting to see a primary care provider. Comprehensive workup was pursued. EKG was obtained and interpreted by myself independently as atrial fibrillation with PVCs that is rate controlled at [address] changes. No STEMI. WBC count normal at 9.9 with hemoglobin 13.9, hematocrit 42.9, platelet count normal at 234. Electrolyte panel shows BUN slightly elevated at 42 with creatinine 1.18. LFTs grossly unremarkable. BNP elevated at 3953 but is been higher when compared to prior labs. Chest x-ray interpreted by myself independently shows fibrotic changes of the interstitial areas. No pneumothorax or pneumonia. When compared to prior, there is not significant change. I reviewed the radiology report which confirms my independent interpretation. I do feel that her shortness of breath for months may be more secondary to fibrotic changes. She will be referred to pulmonology. Review of her urinalysis shows no evidence of infection. However given the cellulitis on her right lower extremity, she will be given her first dose of Augmentin and given a course of therapy for the next week. She can follow-up with her primary care provider. She was also referred to wound care/hyperbarics as needed. At this point in time, I do feel she can be discharged to follow-up. She is motivated for discharge. Return instructions to the emergency department were reviewed. Disposition is discharged home in stable condition. History & Record Review Discussion w/independent historian: Patient and Family Lab Data Attestation: I reviewed the patient's lab results. Labs: Laboratory Results - last 24 hr 10/22/24 10/22/24 15:56 17:39 WBC 9.9 RBC 4.20 Hgb 13.9 Hct 42.9 MCV 102.1 H MCH 33.1 H MCHC 32.4 RDW Std Deviation 53.2 H RDW Coeff of [place] 14.2 Plt Count 234 MPV 8.8 Immature Gran % (Auto) 0.600 Neut % (Auto) 73.2 H Lymph % (Auto) 17.8 L [place] % (Auto) 7.1 Eos % (Auto) 0.8 Baso % (Auto) 0.5 Absolute Neuts (auto) 7.3 Absolute Lymphs (auto) 1.77 Nucleated RBC % 0 Sodium 137 Potassium 3.6 Chloride 98 Carbon Dioxide 25.8 Anion Gap 13 BUN 42 H Creatinine 1.18 Est GFR (MDRD) Non-Af 44 L BUN/Creatinine Ratio 35.3 H Glucose 84 Calcium 10.4 Total Bilirubin 1.29 AST 27 ALT 28 Alkaline Phosphatase 84 NT pro BNP II 3953 H Total Protein 7.7 Albumin 3.8 Globulin 4.0 Albumin/Globulin Ratio 0.9 Urine Color Yellow Urine Clarity Sl. 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 A superimposed infectious/inflammatory process is difficult to exclude. No pleural effusions. Reading Location: [facility] Discharge Plan Triage Chief Complaint: Shortness of Breath Other Complaint: Edema ED Provider: Jeyson Mayer Dx/Rx/DC Orders Clinical Impression: Pulmonary fibrosis, SOB (shortness of breath), Cellulitis of right lower extremity, Peripheral edema Instructions: Pulmonary Fibrosis, ED Cellulitis, ED Peripheral Edema, Bilateral Prescriptions: New amoxicillin-pot clavulanate 875-125 mg tablet 875 mg PO Q12H 7 Days Qty: 14 0RF No Action losartan-hydrochlorothiazide 100-25 mg tablet 1 tab PO QHS nebivolol [Bystolic] 5 mg tablet 5 mg PO DAILY verapamil 360 mg capsule,ext rel. pellets 24 hr 360 mg PO DAILY Eliquis 5 mg Tablet 5 mg PO BID Qty: 30 0RF levothyroxine [Euthyrox] 125 mcg tablet 125 mcg PO DAILY furosemide 20 mg Tablet 20 mg PO DAILY Primary Care Provider: Darrin Iniguez Referrals: Tamir Cardoso DO [Med Staff - Active Staff] - As soon as possible Darrin Iniguez MD [Primary Care Provider] - 3-5 Days if not improving Hyperbaric Medicine,[facility] and [Non-Staff] - As Needed Activity Restrictions/Additional Instructions: Antibiotics as directed. Return with fever, increased redness of right lower extremity, new or worsening symptoms. Follow-up with pulmonology as soon as possible. Print Language: Tajik Disposition Disposition: Home, Self Care
--- NOTE | 2024-10-22 16:20 | RAD_ITS ---
PROCEDURE: CHEST PA AND LATERAL 10/22/2024 REASON FOR EXAM: SHORTNESS OF BREATH TECHNIQUE: CHEST PA AND LATERAL COMPARISON: 06/11/2024 FINDINGS: Lungs/Pleura: Extensive bilateral coarse interstitial reticular airspace opacities likely reflecting chronic interstitial fibrotic lung changes. Superimposed infectious/inflammatory process is difficult to exclude. No pneumothorax or sizable pleural effusion. Heart/Mediastinum: Mild cardiomegaly. Tortuous and calcified thoracic aorta. Bones/Soft tissues: Multilevel degenerative changes of the spine. 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 A superimposed infectious/inflammatory process is difficult to exclude. No pleural effusions. Reading Location: [id number]
[2024-10-22 16:21] LABS: Hematocrit 42.9 % (37-47); Hemoglobin 13.9 g/dL (12.0-15.0); Immature Granulocytes Count 0.060 X10^3/uL (0.0-0.0); Mean Corp Hgb Conc 32.4 g/dL (32-36); Mean Corpuscular Volume 102.1 fL (81-99); Mean Platelet Vol. 8.8 fl (6.2-12.0); NRBC Flagged by Analyzer 0 % (0-5); Platelet Count 234 K/mm3 (150-450); RBC Distribution Width CV 14.2 % (11.6-14.6); RBC Distribution Width SD 53.2 fl (35.1-43.9); Red Blood Count 4.20 M/mm3 (4.2-5.4); White Blood Count 9.9 K/mm3 (4.4-11.0)
[2024-10-22 16:55] LABS: AST(SGOT) 27 U/L (<=31); Alanine Aminotransfer ALT/SGPT 28 U/L (<=34); Albumin, Serum 3.8 g/dL (3.4-4.8); Alkaline Phosphatase 84 U/L (35-104); Anion Gap 13 (5-15); BUN 42 mg/dL (4-19); BUN/Creat Ratio 35.3 RATIO (10-20); Calcium,Total 10.4 mg/dL (7.6-11.0); Carbon Dioxide 25.8 mmol/L (21.0-32.0); Chloride 98 mmol/L (98-108); Globulin 4.0 g/dL (2.2-4.2); Glucose 84 mg/dL (70-99); Potassium 3.6 mmol/L (3.3-5.1)
[2024-10-22 17:00] LABS: Pro- Brain NATRIURETIC PEPTIDE 3953 pg/mL (<=1800)
[2024-10-22 17:42] VITALS: O2SAT 93
[2024-10-22 17:47] VITALS: BP 137/93; PULSE 99; RESP 24; O2SAT 92; BMI 32.5
[2024-10-22 18:00] LABS: Mucous, Urine 0 SEEN /hpf (<or=2+)
[2024-10-22 18:26] LABS: Color, Urine Yellow (Yellow); Glucose, Dipstick Normal (Normal); Ketone-Dipstick Negative (Negative); Leukocyte Esterase-Dipstick 25 /ul (Negative); Nitrite-Dipstick Negative (Negative); Occult Blood-Urine Negative /ul (Negative); Protein-Dipstick 30 mg/dl (Negative); Specific Gravity, Urine 1.010 (1.002-1.030); Urine Bilirubin Dipstick Negative (Negative)
[2024-10-22 19:00] VITALS: PULSE 94; RESP 19; O2SAT 90
[2024-10-22 19:10] LABS: Red Blood Cells-Urine 0-5 SEEN /hpf (0-5); Squamous Epithelial Cells - UA 0-5 SEEN /hpf (5-10)
[2024-10-22 19:40] VITALS: BP 149/98; PULSE 81; RESP 16; TEMP 36.9; O2SAT 93
== END 2024-10-22 19:50 | disposition home or self-care (01) ==
PROVIDERS: Emergency Provider Emergency Medicine; PCP Family Medicine; Referring Provider Emergency Medicine; Visit Provider Emergency Medicine
DX: J84.10 Pulmonary fibrosis, unspecified (principal); I48.91 Unspecified atrial fibrillation; L03.115 Cellulitis of right lower limb; I10 Essential (primary) hypertension; Z79.01 Long term (current) use of anticoagulants; Z79.899 Other long term (current) drug therapy
CPT/HCPCS: 71046; 80053; 81001; 83880; 85025; 93005; 99285

== ENCOUNTER → 2024-11-05 | Outpatient (CLI) | payer MEDICARE, SELFPAY ==
[2024-11-05 14:18] LABS: Anion Gap 12 (5-15); BUN 47 mg/dL (4-19); BUN/Creat Ratio 41.1 RATIO (10-20); Calcium,Total 10.2 mg/dL (7.6-11.0); Carbon Dioxide 26.3 mmol/L (21.0-32.0); Chloride 99 mmol/L (98-108); Glucose 112 mg/dL (70-99); Potassium 3.9 mmol/L (3.3-5.1); Pro- Brain NATRIURETIC PEPTIDE 4437 pg/mL (<=1800)
== END | disposition home or self-care (01) ==
LOC: LAB 13:09
PROVIDERS: PCP Family Medicine; Referring Provider Internal Medicine Critical Care Medicine; Visit Provider Internal Medicine Critical Care Medicine
DX: R06.09 Other forms of dyspnea (principal); R93.89 Abnormal findings on diagnostic imaging of other specified body structures
CPT/HCPCS: 36415; 80048; 83880

== ENCOUNTER → 2024-11-09 | Outpatient (CLI) | payer MEDICARE, SELFPAY ==
--- OUTSIDE RECORDS SUMMARY | 2024-11-09 11:03 | XMS RPT_ITS | CCD ---
Author Organization [facility] [employer] Care Team Providers Care Supervisor Paper Products Name Role Phone Kodak Harding Unavailable Unavailable Unavailable Primary Care Provider Unavailkatie Harding MD, Kodak Casillas Primary Care Provider Mehdi CARRANZA, Kodak Casillas Primary Care Provider Mehdi CARRANZA, Kodak Casillas Primary Care Provider Kanwal RN, Arcelia Unavailable Unavailable Kanwal RN, Arcelia Unavailable Unavailable Dr. Kodak Harding MD Primary Care Provider Dr. Bob Liu DO Emergency Provider Eli CARRANZA, Dr. Lieberman Admit Provider Eli CARRANZA, Dr. Lieberman Attending Provider Dr. Mio Benitez MD Referring Provider Eli CARRANZA, Dr. Lieberman Other Provider Dr. Aster Ramsey MD Attending Provider Izzy Travis MD, Dr. Junaid Atwood Other Provider Dr. Junaid Travis MD Attending Provider Dr. Demetrius Terrell MD Attending Provider Dr. Aster Ramsey MD Other Provider Unavailab KODAK Chance Referring Unavailab KODAK Chance Primary Care Unavailab KODAK Chance Referring Unavailab KODAK Chance Primary Care Unavailab Dr. Kodak Chance MD Primary Care Provider Jeyson Mayer MD Referring Provider Jeyson Mayer MD Emergency Provider Jeyson Mayer MD Attending Provider Dr. Kodak Harding MD Referring Provider Dr. Tamir Cardoso DO Attending Provider Mio Benitez Consulting Unavailable Mehdi, Kodak Primary Care Unavailable Benitez, Mio Referring Unavailable Benitez, Mio Attending Unavailable Benitez, Mio Admitting Unavailable Benitez, Mio Consulting Unavailable Mehdi, Kodak Primary Care Unavailable Benitez, Mio Referring Unavailable Junaid Travis Attending Unavailable Eli, Mio Admitting Unavailable Junaid Travis Consulting Unavailable Aster Ramsey Attending Unavailable Aster Ramsey Consulting Unavailable Mehdi, Kodak Primary Care Unavailable Mehdi, Kodak Referring Unavailable Tamir Cardoso Attending Unavailable Mehdi, Kodak Primary Care Unavailable Demetrius Terrell Attending Unavailable Mehdi, Kodak Primary Care Unavailable Tamir Cardoso Referring Unavailable Tamir Cardoso Attending Unavailable Jeyson Mayer Referring Unavailable Jeyson Mayer Attending Unavailable Mehdi, Kodak Primary Care Unavailable Aster Ramsey Attending Unavailable Benitez, Mio Consulting Unavailable Benitez, Mio Referring Unavailable Benitez, Mio Admitting Unavailable Mehdi, Kodak Primary Care Unavailable Junaid Travis Consulting Unavailable KODAK HARDING Attending Unavailab radha HARDING, KODAK CASILLAS Primary Care Unavailab KODAK Chance Attending Unavailab KODAK Chance Primary Care Unavailab KODAK Chance Attending Unavailab radha HARDING, KODAK CASILLAS Primary Care Unavailab KODAK Chance Attending Unavailab le MEHDIKODAK Primary Care Unavailab le Allergies Allergy Classification Reported Allergen(s) Allergy Type Date of Onset Reaction(s) Facility (4 sources) Cigarette Smoke; Translations: [CIGARETTE SMOKE] Drug Allergy 09-03-2020 Other: See Comments [facility] Medications Current Medications Medication Drug Class(es) Dates Sig (Normalized) Sig (Original) apixaban 5 mg oral tablet (16 sources) Factor Xa Inhibitor Start: 06-15-2024 End: 10-30-2025 take 1 tablet by mouth twice daily ELIQUIS 5 mg tab(s) Take 1 tablet by mouth two times a day. 180 tablet 3 10/30/2024 10/30/2025 Active ascorbic acid 1000 mg oral capsule (1 source) Vitamin C Start: 11-05-2024 take 1 capsule by mouth once daily Ascorbic Acid (Vitamin C) 1,000 mg capsule Active 1000 mg PO daily November 05, 2024 12:00am furosemide 20 mg oral tablet (17 sources) Loop Diuretic Start: 06-27-2024 End: 06-27-2024 take 1 tablet by mouth once daily furosemide (LASIX) 20 mg tablet Take 1 tablet by mouth once daily. 90 tablet 3 06/27/2024 Active Start: 06-15-2024 End: 10-22-2024 take 1 tablet by mouth twice daily Furosemide 20 mg Tablet Discontinued 20 mg PO TWICE DAILY 60 30 0 June 15, 2024 1:00am October 22, 2024 5:57pm hydroCHLOROthiazide 25 mg / losartan potassium 100 mg oral tablet (20 sources) Thiazide Diuretic, Angiotensin 2 Receptor Marilyn Start: 06-12-2024 Losartan-Hydrochlorothiazide 100-25 mg tablet Active 1 {tbl} PO AT BEDTIME June 12, 2024 1:00am Blood Pressure Start: 02-23-2021 End: 03-19-2024 take 1 tablet by mouth once daily losartan-hydroCHLOROthiazide (HYZAAR) 10 0-25 mg per tablet Take 1 tablet by mouth once daily. 90 tablet 3 03/19/2024 Active Comment on above: Take 1 tablet by bree th once daily. levothyroxine sodium 0.125 mg oral tablet (20 sources) l-Thyroxine Start: End: take 1 tablet by mouth once daily Levothyroxine 112 mcg tablet Discontinued 112 ug PO DAILY June 12, 2024 1:00am October 22, 2024 5:57pm thyroid Start: 02-23-2021 End: 03-19-2024 take 1 tablet by mouth once daily levothyroxine (SYNTHROID) 125 mcg tablet Take 1 tablet by mouth once daily. 90 tablet 3 03/19/2024 Active Comment on above: Take 1 tablet by bree th once daily. mecobalamin (1 source) Start: 11-05-2024 Mecobalamin (Vitamin B12) 2,500 mcg tablet,chewable Active ug PO November 05, 2024 12:00am Multivitamin tablet (1 source) Start: 11-05-2024 Multivitamin tablet Active 1 {tbl} PO EVERY MORNING November 05, 2024 12:00am rx-ty-BV-vit M-uezpj-vcd-coQ10 (DAILY MULTIVITAMIN) 200-100-500 mcg cap (20 sources) Start: 08-30-2019 take 1 capsule by mouth once daily ny-ut-OB-vit Y-nboma-ucu-coQ10 (DAILY MULTIVITAMIN) 200-100-500 mcg cap Take 1 capsule by mouth once daily. 08/30/2019 Active Start: 08-30-2019 take 1 capsule by [facility] once daily cm-ul-KT-vit Q-pwisc-zkw-coQ10 (DAILY MULTIVITAMIN) 200-100-500 mcg cap Take 1 capsule by mouth once daily. 0 08/30/2019 Active Comment on above: Take 1 capsule by [facility] once daily. nebivolol 5 mg oral tablet (20 sources) Start: 02-23-2021 End: 06-27-2024 take 1 tablet by mouth once daily nebivolol (BYSTOLIC) 5 mg tablet Take 1 tablet by mouth once daily. 90 tablet 3 06/27/2024 Active Comment on above: Take 1 tablet by [facility] once daily. Turmeric extract (1 source) Start: 11-05-2024 Turmeric 400 mg capsule Active mg PO November 05, 2024 12:00am 24 hr verapamil hydrochloride 360 mg extended release oral capsule (20 sources) Calcium Channel Marilyn Start: 06-12-2024 take 1 capsule by mouth once daily Verapamil 360 mg capsule,ext rel. pellets 24 hr Active 360 mg PO DAILY June 12, 2024 1:00am blood pressure Start: 02-23-2021 End: 03-19-2025 take 2 tablets by mouth once daily at bedtime verapamil SR (CALAN SR) 180 mg CR tablet Take 2 tablets by mouth daily at bedtime. 180 tablet 3 03/19/2024 03/19/2025 Active Comment on above: Take 2 tablets by [facility] once daily. Completed/Discontinued Medications Medication Drug Class(es) Dates Sig (Normalized) Sig (Original) amoxicillin 875 mg / clavulanate 125 mg oral tablet (2 sources) Penicillin-class Antibacterial Start: 10-22-2024 End: 11-05-2024 take 1 tablet by mouth every twelve hours Amoxicillin-Pot Clavulanate 875-125 mg tablet Discontinued 875 mg PO Q12H 14 7 0 October 22, 2024 12:00am November 05, 2024 11:10am aspirin 325 mg oral tablet (14 sources) Platelet Aggregation Inhibitor, Nonsteroidal Anti-inflammatory Drug Start: 06-12-2024 End: 06-15-2024 take 1 tablet by mouth at bedtime Aspirin 325 mg tablet Discontinued 325 mg PO AT BEDTIME June 12, 2024 1:00am June 15, 2024 2:55pm Heart End: 06-27-2024 take 1 tablet by mouth once daily aspirin, enteric coated (ECOTRIN LOW STRENGTH) 81 mg EC tablet Take 81 mg by mouth once daily. 06/27/2024 Discontinued Comment on above: Take 81 mg by mouth once daily. cephalexin 500 mg oral capsule (3 sources) Cephalosporin Antibacterial Start: End: take 1 capsule by mouth twice daily Cephalexin 500 mg capsule Discontinued 500 mg PO TWICE A DAY 4 2 0 June 15, 2024 1:00am October 22, 2024 5:56pm Problems Active Problems Problem Classification Problem Date Documented Da te Episodic/Chronic Administrative/social admission (7 sources) Patient encounter status; Translations: [Other specified counseling] Onset: 09-17-2024 09-26-2023 Episodic Cardiac dysrhythmias (20 sources) Paroxysmal atrial fibrillation; Translations: [Paroxysmal atrial fibrillation] Onset: 08-30-2019 Chronic Congestive heart failure; nonhypertensive (1 source) Acute heart failure; Translations: [Acute systolic (congestive) heart failure] 06-27-2024 Chronic Disorders of lipid metabolism (14 sources) Pure hypercholesterolemia ; Translations: [Pure hypercholesterolemia , unspecified] Onset: 09-26-2023 09-26-2023 Chronic Essential hypertension (20 sources) Essential hypertension; Translations: [Essential (primary) hypertension] Onset: 02-25-2017 Chronic Malaise and fatigue (2 sources) Asthenia; Translations: [Weakness] Onset: 09-17-2024 09-17-2024 Episodic Osteoarthritis (20 sources) Osteoarthritis of knee; Translations: [Osteoarthritis of knee, unspecified] Onset: 09-01-2017 Chronic Other aftercare (3 sources) Long-term current use of anticoagulant; Translations: [prison (current) use of anticoagulants] 06-27-2024 Episodic Other aftercare (1 source) 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 of anticoagulants; Translations: [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 of anticoagulants] Onset: 09-17-2024 Episodic Other and unspecified benign neoplasm (12 sources) Intracranial meningioma; Translations: [Benign neoplasm of cerebral meninges] Onset: 06-15-2024 06-11-2024 Chronic Other and unspecified benign neoplasm (1 source) Benign neoplasm of cerebral meninges; Translations: [Benign neoplasm of cerebral meninges] Onset: 06-18-2024 Chronic Other lower respiratory disease (2 sources) Fibrosis of lung; Translations: [Pulmonary fibrosis, unspecified] 10-22-2024 Chronic Other lower respiratory disease (2 sources) Dyspnea; Translations: [Shortness of breath] 10-22-2024 Episodic Other lower respiratory disease (3 sources) Dyspnea on exertion; Translations: [Other forms of dyspnea] 11-05-2024 Episodic Other lower respiratory disease (1 source) Other forms of dyspnea; Translations: [Other forms of dyspnea] Onset: 11-05-2024 Episodic Other lower respiratory disease (1 source) Shortness of breath; Translations: [Shortness of breath] Onset: 10-26-2024 Episodic Other screening for suspected conditions (not mental disorders or infectious disease) (3 sources) Abnormal findings on diagnostic imaging of other specified body structures; Translations: [Abnormal chest x-ray] Onset: 11-05-2024 11-05-2024 Chronic Other screening for suspected conditions (not mental disorders or infectious disease) (7 sources) Raised cardiac enzyme or marker; Translations: [Other specified abnormal findings of blood chemistry] Onset: 06-18-2024 06-11-2024 Episodic Residual codes; unclassified (2 sources) Peripheral edema; Translations: [Localized edema] 10-22-2024 Episodic Respiratory failure; insufficiency; arrest (adult) (1 source) Acute respiratory failure; Translations: [Acute respiratory failure with hypoxia] 06-27-2024 Episodic Screening and history of mental health and substance abuse codes (2 sources) Encounter for screening for depression; Translations: [Encounter for screening examination for other mental health and behavioral disorders] Onset: 09-17-2024 Episodic Skin and subcutaneous tissue infections (2 sources) Cellulitis of right lower limb; Translations: [Cellulitis of right lower limb] 10-22-2024 Episodic Thyroid disorders (20 sources) Acquired hypothyroidism; Translations: [Hypothyroidism, unspecified] Onset: 02-25-2017 Chronic Unclassified (1 source) Unknown / UNK(Unknown) Onset: 03-06-2018 Unclassified (1 source) Other persistent atrial fibrillation; Translations: [Persistent atrial fibrillation (HCC)] Onset: 03-22-2022 Unclassified (1 source) 6 Month Exam Onset: 03-19-2024 Urinary tract infections (7 sources) Acute lower urinary tract infection; Translations: [Urinary tract infection, site not specified] Onset: 06-18-2024 06-27-2024 Episodic Past or Other Problems Problem Classification Problem Date Documented Da te Episodic/Chronic Septicemia (except in labor) (6 sources) Sepsis; Translations: [Sepsis, unspecified organism] Onset: 06-18-2024 06-27-2024 Episodic Unclassified (1 source) E03.9 Onset: 03-06-2018 Results Test Name Value Interpretation Reference Range Facility Basic Metabolic Profile (BMP )on 11-05-2024 BUN/CRE 41.1 RATIO High 10-20 [facility] Comment on above: Performed By: #### L 500.2500, L100.0100 #### [facility] [address] [facility] [place], [address] Calcium [Mass/Vol] 10.2 mg/dL Normal 7.6-11.0 [facility] Comment on above: Performed By: #### L 500.2500, L100.0100 #### [facility] [address] [place], [address] Chloride [Moles/Vol] 99 mmol/L Normal 98-108 [facility] Comment on above: Performed By: #### L 500.2500, L100.0100 #### [facility] [address] [place], [address] CO2 [Moles/Vol] 26.3 mmol/L Normal 21.0-32.0 [facility] Comment on above: Performed By: #### L 500.2500, L100.0100 #### [facility] [address] [place], [address] Creatinine [Mass/Vol] 1.14 mg/dL Normal 0.70-1.20 [facility] Comment on above: Performed By: #### L 500.2500, L100.0100 #### [facility] [address] [place], [address] GAP 12 Normal 5-15 [facility] Comment on above: Performed By: #### L 500.2500, L100.0100 #### [facility] [address] [place], [address] GFR/1.73 sq M.predicted among non-blacks MDRD (S/P/Bld) [Vol rate/Area] 46 mL/min/{1.73_m2} Low >60 [facility] Comment on above: Result Comment: mL/m in/1.73m2 CKD-EPI Creatinine Equation (2020) Performed By: #### L 500.2500, L100.0100 #### [facility] [address] [place], [address] Glucose [Mass/Vol] 112 mg/dL High 70-99 [facility] Comment on above: Performed By: #### L 500.2500, L100.0100 #### [facility] [address] [place], [address] Potassium [Moles/Vol] 3.9 mmol/L Normal 3.3-5.1 [facility] Comment on above: Performed By: #### L 500.2500, L100.0100 #### [facility] [address] [place], [address] Sodium [Moles/Vol] 137 mmol/L Normal 133-145 [facility] Comment on above: Performed By: #### L 500.2500, L100.0100 #### [facility] [address] [place], [address] Urea nitrogen [Mass/Vol] 47 mg/dL High 4-19 [facility] Comment on above: Performed By: #### L 500.2500, L100.0100 #### [facility] [address] [place], [address] [facility]NPNon [facility] ESTEBAN WOODS ([id number]) 1935 F T Date Time Provider Department 11/05/24 KODAK HARDING During your visit today, we recorded the following information about you: Annette Nieves 11/05/2024 9:53 AM Signed Patient's son Benjamín contacted the office requesting a phone call back regarding update on Erni. Pt can be reached at [phone] Kathy Bergeron LPN 11/06/2024 10:15 AM Signed This nurse spoke to patients son. Son stated that due to lab work, [employer] Operator Dr. Cardoso would like PCP to look over Diuretics. Patient is currently taking Lasix 20 mg every day, and also Losartan - Hydrochlorothiazide 100-25 mg daily. Kathy Garrett LPN November 06, 2024 10:15 AM Kodak Harding MD 11/06/2024 10:31 AM Signed Does [...] this nurse is to send order to [facility]. Additionally, patient does not currently see a Machine Gun Mechanic. Patient was evaluated and treated for shortness of breath at [facility] on 10-22-2024 Patient was seen in 2008 by Cardiology when diagnosed with A Fib, but did not want to go for the additional testing that they wanted her to receive. Patient does have additional testing scheduled, ordered by [employer]: Pulmonary Function Test November 09, 2024 CT Heart and Lungs November 21, 2024 Echocardiogram November 23, [address] Cardoso [employer] Operator December 05, 2024 Patient is also moving into [facility] with [facility] [phone] tomorrow. Kathy Garrett LPN November 06, 2024 11:15 AM Allergies As of Date: 11/05/2024 Noted Allergy Reaction CIGARETTE SMOKE 09/03/2020 16 - Unknown Date Reviewed: 09/17/2024 Reviewed by: Kathy Garrett LPN - Fully Assessed Reason for Visit: Patient Update [1234] Primary Visit Diagnosis:QUACH (dyspnea on exertion) [R06.09] Order(s):NT PRO BNP [SQNTBNP] Order #: [id number] FUTURE Prescriptions as of 11/06/2024 - ELIQUIS 5 mg tab(s) Take 1 tablet by mouth two times a day. - nebivolol (BYSTOLIC) 5 mg tablet Take 1 tablet by mouth once daily. - furosemide (LASIX) 20 mg tablet Take 1 tablet by mouth once daily. - levothyroxine (SYNTHROID) 125 mcg tablet Take 1 tablet by mouth once daily. - losartan-hydroCHLORO thiazide (HYZAAR) 100-25 mg per tablet Take 1 tablet by mouth once daily. - verapamil SR (CALAN SR) 180 mg CR tablet Take 2 tablets by mouth daily at bedtime. - oe-or-OG-vit T-ywmuy-nkm-coQ10 (DAILY MULTIVITAMIN) 200-100-500 mcg cap Take 1 capsule by mouth once daily. Problem List As Of Date 11/05/2024 Noted Resolved Atrial fibrillation (HCC) [I48.91] 08/30/2019 Hypertension, essential [I10] 02/25/2017 Hypothyroidism [E03.9] 02/25/2017 Osteoarthritis of knee [M17.9] 09/01/2017 Hyperlipidemia, unspecified [E78.5] 09/26/2023 Intracranial meningioma (HCC) [D32.0] 06/15/2024 Encounter Status:Closed by KODAK HARDING on 11/06/24 [facility] Pro- Brain NATRIURETIC PEPTI Faiza 11-05-2024 Natriuretic peptide B (Bld) [Mass/Vol] 4437 pg/mL High <=1800 [facility] Comment on above: Result Comment: Hear t Failure Unlikely: < 300 pg/mL Heart Failure Likely < 50 Years: > 450 pg/mL 50-75 Years: > 900 pg/mL >75 Years: > 1800 pg/mL Performed By: #### L 500.2500, L100.0100 #### [facility] [address] [facility], [address] Pulmonary Visit Reporton Pulmonary Visit Report [facility] [place] [address] [place] [address] OFFICE VISIT Date of Service: 11/05/24 MR#: [id number] Acct: [id number] Name: ESTEBAN WOODS Rep #: [id number] : 1935 Provider: Dr. Tamir Cardoso DO Age/Sex: 89/F Location: [facility] Status: Signed Assessment and Plan Assessment and Plan (1) QUACH (dyspnea on exertion): Status: Acute Plan: I do suspect that the patient's dyspnea may be multifactorial in etiology. While an underlying interstitial lung process is certainly a possibility, the patient has known congestive heart failure along with valvular heart disease, pulmonary hypertension and an elevated BNP during her emergency department visit, raising the concern for pulmonary edema and an underlying cardiac cause for her dyspnea. The patient is currently only being maintained on 20 mg of Lasix daily. At this time, we will plan to obtain a BNP and check a basic metabolic profile to ensure stable kidney function. If her BNP is still significantly elevated, she would likely benefit from an increase in her Lasix regimen. In addition, we will plan to obtain baseline pulmonary function studies and obtain a noncontrasted chest CT for further clarification of the findings noted on chest x-ray. Lastly, repeat echocardiogram will be obtained to evaluate for progressive valvular heart disease. Ultimately, the patient may benefit from referral to cardiology for further optimization, depending on her workup. (2) Abnormal CXR: Status: Acute Plan: The differential for the chest x-ray noted in the emergency department would include interstitial lung disease versus asymmetric pulmonary edema. Will obtain noncontrast chest CT for further evaluation. If the patient does have evidence of interstitial lung disease, we will plan to complete an autoimmune workup at her follow-up office visit. Orders: Orders Pro- Brain NATRIURETIC PEPTIDE Today R06.09 - Other forms of dyspnea, R93.89 - Abnormal findings on diagnostic imaging of other specified body structures PFT Complete - DLCO, Spirometry b/a bronchodilators, lung volumes 11/09/24 R06.09 - Other forms of dyspnea, R93.89 - Abnormal findings on diagnostic imaging of other specified body structures Echo Complete Today R06.09 - Other forms of dyspnea, R93.89 - Abnormal findings on diagnostic imaging of other specified body structures Chest without Contrast Today R06.09 - Other forms of dyspnea, R93.89 - Abnormal findings on diagnostic imaging of other specified body structures Basic Metabolic Profile (BMP) Today R06.09 - Other forms of dyspnea Medications: Discontinued amoxicillin-pot clavulanate 875-125 mg Discontinued Reason: Pt no longer taking 875 mg PO Q12H 7 days 14 TABLETS 0RF HPI HPI Comments Details: The patient is an 89-year-old female who presents to the office today in follow-up from a recent emergency department visit. Her sons are present at today's office visit. In June 2024, the patient was admitted to the hospital with UTI, which was complicated by respiratory failure and atrial fibrillation with RVR. Ultimately, with antimicrobials and diuretics, the patient was able to be discharged home without the need for supplemental oxygen. The patient was then reevaluated in the emergency department on October 22 with complaints of shortness of breath and generalized weakness. As part of her workup, a chest x-ray was obtained which demonstrated bilateral interstitial changes, right greater than left. The patient was noted to have a BNP of 4000. She was ultimately told to follow-up in the pulmonary medicine clinic over concerns for interstitial lung disease. The patient is a lifelong non-smoker. She has never been evaluated by a credit union manager. She has never been diagnosed with any autoimmune conditions. Although she is currently seated in a wheelchair, she indicated that she is able to ambulate short distances. The patient did have a surface echocardiogram completed in June 2024 which demonstrated mild concentric LVH with an ejection fraction of 40%. There was mild to moderate global RV systolic dysfunction along with severe biatrial dilation, moderate to severe mitral valve regurgitation and moderate to severe tricuspid valve regurgitation. Right ventricular systolic pressure was estimated to be 75 mmHg. Intake Vital Signs 10/22/24 14:54 11/05/24 07:15 Height 5 ft 2 in 5 ft 2 in Weight: 168 lb BMI 30.7 BP 134/82 H Blood Pressure Location Rt brachial Position Sitting Respiration 18 Pulse 73 Pulse Source Monitor Temp 97.7 F L Temperature Source Temporal Artery Pulse Oximetry (%) 97 Oxygen Delivery Method room air Intake Visit Reasons: Hospital FU Electron Beam Operator Required: No Accompanied by: Son Allergies No Known Allergies A (more content not included)... Normal [facility] 12 Lead EKGon 10-22-2024 12 Lead EKG [facility] Cardi[facility] Services [address] [place] [address] 12 Lead EKG 10/22/24 1639 MR#: [id number] Acct: [id number] Name: ESTEBAN WOODS Rep #: [id number] : 1935 89 From: Benjamín Hendrix MD Attending Dr: Status: DEP ER Ordering Dr: Jeyson Mayer MD Date: 10/22/24 Location: ED Sex: F C Admitted: Test Reason : Blood Pressure : */* mmHG Vent. Rate : 88 BPM Atrial Rate : * BPM P-R Int : * ms QRS Dur : 92 ms QT Int : 378 ms P-R-T Axes : * 5 11 degrees QTcB Int : 457 ms Atrial fibrillation with premature ventricular or aberrantly conducted complexes Low voltage QRS Cannot rule out Anterior infarct , age undetermined Abnormal ECG Confirmed by Benjamín Hendrix ([id number]), rewrite editor ANSON COHEN ([id number]) on 10/24/2024 11:19:43 AM Referred By: Jeyson Mayer Confirmed By: Benjamín Hendrix 10/24/24 1119 Date Benjamín Hendrix MD CC: Dr. Jeyson Mayer MD; Dr. Kodak Harding MD Signed Normal [facility] Absolute lymphocyte countOrd ered By: Jeyson Mayer on 10-22-2024 Lymphocytes Auto (Unsp spec) [#/Vol] 1.77 10*3/uL 0.83-4.51 [facility] Absolute neutrophil countOrd ered By: Jeyson Mayer on 10-22-2024 Neutrophils (Bld) [#/Vol] 7.3 10*3/uL 2.0-7.7 [facility] Anion gap in Serum or Plasma Ordered By: Jeyson Mayer on 10-22-2024 Anion gap [Moles/Vol] 13 mmol/L 5-15 [facility] Automated lymphocyte count a s percentage of total leukocytesOrdered By: Jeyson Mayer on 10-22-2024 Lymphocytes/100 WBC Auto (Unsp spec) 17.8 % Low 19-41 [facility] BUN/creatinine ratioOrdered By: Jeyson Mayer on 10-22-2024 Urea nitrogen/Creatinine [Mass ratio] 35.3 mg/mg High 10-20 [facility] Basophil percentageOrdered B y: Jeyson Mayer on 10-22-2024 Basophils/100 WBC (Bld) 0.5 % 0-1 [facility] Bilirubin Test strip Ql (U)O rdered By: Jeyson Mayer on 10-22-2024 Bilirubin Ql (U) Negative Negative [facility] Bilirubin, totalOrdered By: Jeyson Mayer on 10-22-2024 Bilirubin [Mass/Vol] 1.29 mg/dL 0.00-1.30 [facility] CBC W/Diff, Automatedon 10-09 Absolute Lymph 1.77 X10 3/uL Normal 0.83-4.51 [facility] Comment on above: Performed By: #### L 500.2500, L100.0100 #### [facility] [address] [facility]. [place], [place], [id number] Absolute Neut 7.3 X10 3/uL Normal 2.0-7.7 [facility] Comment on above: Performed By: #### L 500.2500, L100.0100 #### [facility] [address] [place], [address] Basophils/100 WBC (Bld) 0.5 % Normal 0-1 [facility] Comment on above: Performed By: #### L 500.2500, L100.0100 #### [facility] [address] [place], [address] Eosinophils/100 WBC (Bld) 0.8 % Normal 0-5 [facility] Comment on above: Performed By: #### L 500.2500, L100.0100 #### [facility] [address] [place], [address] Erythrocyte distribution width (RBC) [Ratio] 14.2 % Normal 11.6-14.6 [facility] Comment on above: Performed By: #### L 500.2500, L100.0100 #### [facility] [address] [place], [address] Hematocrit (Bld) [Volume fraction] 42.9 % Normal 37-47 [facility] Comment on above: Performed By: #### L 500.2500, L100.0100 #### [facility] [address] [place], [address] Hemoglobin (Bld) [Mass/Vol] 13.9 g/dL Normal 12.0-15.0 [facility] Comment on above: Performed By: #### L 500.2500, L100.0100 #### [facility] [address] [place], [address] IG% 0.600 Normal 0.0-0.9 [facility] Comment on above: Result Comment: IG% - Immature Granulocytes (promyelocytes, myelocytes and metamyelocytes) > 1% indicates that a LEFT SHIFT is Present. Performed By: #### L 500.2500, L100.0100 #### [facility] [address] [place], [address] Lymphocytes/100 WBC (Bld) 17.8 % Low 19-41 [facility] Comment on above: Performed By: #### L 500.2500, L100.0100 #### [facility] [address] [place], [address] MCH (RBC) [Entitic mass] 33.1 pg High 27.0-32.0 [facility] Comment on above: Performed By: #### L 500.2500, L100.0100 #### [facility] [address] [place], [address] MCHC (RBC) [Mass/Vol] 32.4 g/dL Normal 32-36 [facility] Comment on above: Performed By: #### L 500.2500, L100.0100 #### [facility] [address] [place], [address] MCV (RBC) [Entitic vol] 102.1 fL High 81-99 [facility] Comment on above: Performed By: #### L 500.2500, L100.0100 #### [facility] [address] [place], [address] Monocytes/100 WBC (Bld) 7.1 % Normal 0-10 [facility] Comment on above: Performed By: #### L 500.2500, L100.0100 #### [facility] [address] [place], [address] Neutrophils/100 WBC (Bld) 73.2 % High 47-70 [facility] Comment on above: Performed By: #### L 500.2500, L100.0100 #### [facility] [address] [place], [address] Nucleated RBC (Bld) [#/Vol] 0 10*3/uL Normal 0-5 [facility] Comment on above: Performed By: #### L 500.2500, L100.0100 #### [facility] [address] [place], [address] Platelet mean volume (Bld) [Entitic vol] 8.8 fL Normal 6.2-12.0 [facility] Comment on above: Performed By: #### L 500.2500, L100.0100 #### [facility] [address] [place], [address] Platelets (Bld) [#/Vol] 234 10*3/uL Normal 150-450 [facility] Comment on above: Performed By: #### L 500.2500, L100.0100 #### [facility] [address] [place], [address] RBC (Bld) [#/Vol] 4.20 10*6/uL Normal 4.2-5.4 [facility] Comment on above: Performed By: #### L 500.2500, L100.0100 #### [facility] [address] [place], [address] RDW SD 53.2 fl High 35.1-43.9 [facility] Comment on above: Performed By: #### L 500.2500, L100.0100 #### [facility] [address] [place], [address] WBC (Bld) [#/Vol] 9.9 10*3/uL Normal 4.4-11.0 [facility] Comment on above: Performed By: #### L 500.2500, L100.0100 #### [facility] [address] [place], [address] Carbon dioxide, total [Moles /volume] in Central venous bloodOrdered By: Jeyson Mayer on 10-22-2024 CO2 [Moles/Vol] 25.8 mmol/L 21.0-32.0 [facility] Chest PA and Lateralon 10-22 Chest PA and Lateral [facility] Imaging Services [address] [place], [place] [address] Chest PA and Lateral MR#: [id number] Acct: [id number] Name: ESTEBAN WOODS Rep #: [id number] : 1935 F 89 From: Johnny Espinoza MD PCP: Dr. Kodak Harding MD Status: REG ER Study: Chest PA and Lateral Date of Exam: 10/22/24 Exam# [id number] Ordering Dr: Jeyson Mayre MD PROCEDURE: CHEST PA AND LATERAL 10/22/2024 REASON FOR EXAM: SHORTNESS OF BREATH TECHNIQUE: CHEST PA AND LATERAL COMPARISON: 06/11/2024 FINDINGS: Lungs/Pleura: Extensive bilateral coarse interstitial reticular airspace opacities likely reflecting chronic interstitial fibrotic lung changes. Superimposed infectious/inflammat ory process is difficult to exclude. No pneumothorax or sizable pleural effusion. Heart/Mediastinum: Mild cardiomegaly. Tortuous and calcified thoracic aorta. Bones/Soft tissues: Multilevel degenerative changes of the spine. 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 A superimposed infectious/inflammat ory process is difficult to exclude. No pleural effusions. Reading Location: [id number] CC: Dr. Jeyson Mayer MD; Dr. Kodak Harding MD Stake Driver: Signed Normal [facility] Chloride assayOrdered By: Carlos Mayer on 10-22-2024 Chloride [Moles/Vol] 98 mmol/L 98-108 [facility] Comprehensive Metabolic Prof ilon 10-22-2024 Albumin [Mass/Vol] 3.8 g/dL Normal 3.4-4.8 [facility] Comment on above: Performed By: #### L 500.2500, L100.0100 #### [facility] [address] [place], [place], [address] Albumin/Globulin [Mass ratio] 0.9 {ratio} Normal 0.9-2.4 [facility] Comment on above: Performed By: #### L 500.2500, L100.0100 #### [facility] [address] [place], [address] ALK PHOS 84 U/L Normal 35-104 [facility] Comment on above: Performed By: #### L 500.2500, L100.0100 #### [facility] [address] [place], [address] ALT [Catalytic activity/Vol] 28 U/L Normal <=34 [facility] Comment on above: Performed By: #### L 500.2500, L100.0100 #### [facility] [address] [place], [address] AST [Catalytic activity/Vol] 27 U/L Normal <=31 [facility] Comment on above: Performed By: #### L 500.2500, L100.0100 #### [facility] [address] [place], [address] Bilirubin [Mass/Vol] 1.29 mg/dL Normal 0.00-1.30 [facility] Comment on above: Performed By: #### L 500.2500, L100.0100 #### [facility] [address] [place], [address] BUN/CRE 35.3 RATIO High 10-20 [facility] Comment on above: Performed By: #### L 500.2500, L100.0100 #### [facility] [address] [place], [address] Calcium [Mass/Vol] 10.4 mg/dL Normal 7.6-11.0 [facility] Comment on above: Performed By: #### L 500.2500, L100.0100 #### [facility] [address] [place], [address] Chloride [Moles/Vol] 98 mmol/L Normal 98-108 [facility] Comment on above: Performed By: #### L 500.2500, L100.0100 #### [facility] [address] [place], [address] CO2 [Moles/Vol] 25.8 mmol/L Normal 21.0-32.0 [facility] Comment on above: Performed By: #### L 500.2500, L100.0100 #### [facility] [address] [place], [address] Creatinine [Mass/Vol] 1.18 mg/dL Normal 0.70-1.20 [facility] Comment on above: Performed By: #### L 500.2500, L100.0100 #### [facility] [address] [place], [address] GAP 13 Normal 5-15 [facility] Comment on above: Performed By: #### L 500.2500, L100.0100 #### [facility] [address] [place], [address] GFR/1.73 sq M.predicted among non-blacks MDRD (S/P/Bld) [Vol rate/Area] 44 mL/min/{1.73_m2} Low >60 [facility] Comment on above: Result Comment: mL/m in/1.73m2 CKD-EPI Creatinine Equation (2020) Performed By: #### L 500.2500, L100.0100 #### [facility] [address] [place], [address] Globulin (S) [Mass/Vol] 4.0 g/dL Normal 2.2-4.2 [facility] Comment on above: Performed By: #### L 500.2500, L100.0100 #### [facility] [address] [place], [address] Glucose [Mass/Vol] 84 mg/dL Normal 70-99 [facility] Comment on above: Performed By: #### L 500.2500, L100.0100 #### [facility] [address] [place], [address] Potassium [Moles/Vol] 3.6 mmol/L Normal 3.3-5.1 [facility] Comment on above: Performed By: #### L 500.2500, L100.0100 #### [facility] [address] [place], [address] Sodium [Moles/Vol] 137 mmol/L Normal 133-145 [facility] Comment on above: Performed By: #### L 500.2500, L100.0100 #### [facility] [address] [place], [address] T PROT 7.7 g/dL Normal 5.9-8.4 [facility] Comment on above: Performed By: #### L 500.2500, L100.0100 #### [facility] [address] [place], [address] Urea nitrogen [Mass/Vol] 42 mg/dL High 4-19 [facility] Comment on above: Performed By: #### L 500.2500, L100.0100 #### [facility] [address] [place], [address] Emergency Department Summary on 10-22-2024 Emergency Department Summary [facility] Medical Records Department [address] [place] [address] Emergency Department Summary 10/22/24 MR#: [id number] Acct: [id number] Name: ESTEBAN WOODS Rep #: [id number] : 1935 89 From: Jeyson Mayer MD PCP: Dr. Kodak Harding MD Status:REG ER Location: ED HPI History of Present Illness Chief Complaint: Shortness of Breath Narrative Narrative: 89-year-old female past medical history of atrial fibrillation on Eliquis presents with her son because of increasing shortness of breath and generalized weakness that she has had for the last few months. They relate history that back in June, approximately 4 months ago she was admitted for urosepsis. She stayed in the hospital for 5 days. It affected her memory. Since then, she states that she has shortness of breath and dyspnea on exertion. She denies any recent fevers or chills, no cough, no dysuria or hematuria. States her legs are swollen, and there is a small ulceration on her right medial lower leg that started to turn red today. She is concerned because she feels generally weak for the past few months and short of breath with dyspnea on exertion. [facility] Medical History Hypertension Home Medications ???Medication ???Instructions ???Recorded ???Last Taken ???Type losartan 100 1 tab PO QHS Blood Pressure 10/21/24 History mg-hydrochlorothiazi de 25 mg tablet nebivolol 5 mg tablet (Bystolic) 5 mg PO DAILY blood pressure 06/1210/21/24 History verapamil 360 mg 24 hr 360 mg PO DAILY blood pressure 08/0310/22/24 History capsule,extended release apixaban 5 mg tablet (Eliquis) 5 mg PO BID #30 tabs 06/15/2410/09 Rx amoxicillin 875 mg-potassium 875 mg PO Q12H 7 days #14 TABLETS 10/22/24 Unknown Rx clavulanate 125 mg tablet furosemide 20 mg tablet 20 mg PO DAILY 10/22/24 10/22/24 H istory levothyroxine 125 mcg tablet 125 mcg PO DAILY 10/22/24 10/22/24 History (Euthyrox) Allergy/AdvReac Type Severity Reaction Status Date / Time No Known Allergies Allergy Verified 10/22/24 14:56 Social History Smoking Status: Never smoker ROS ROS ED ROS Narrative Review of systems positive for generalized weakness, shortness of breath and dyspnea on exertion for months. No recent fevers or chills, no nausea or vomiting. Positive leg swelling over the last few months as well. Small ulcer on right lower leg that reddened today. No dysuria or hematuria. EXAM Physical Exam Narrative Exam Narrative: Afebrile. Vital signs noted. Nontoxic-appearing. Cardiovascular examination reveals regular rate and rhythm. Lungs are clear to auscultation bilaterally. Abdomen is soft and nontender with normal active bowel sounds. No guarding or rebound. Neurological examination is nonfocal, nonlateralizing. Bilateral symmetric pedal edema at +1 pitting. Positive ulceration with minimal surrounding erythema right lower extremity. No crepitance. Awake, alert, oriented. Const Vital Signs: 10/22/24 14:54 10/22/24 16:00 10/22/24 16:12 Temperature 98.2 F Temperature Source Oral Pulse Rate 116 H Respiratory Rate 18 Respiratory Effort Short of Breath Labored Short of Breath Respiratory Depth Shallow Blood Pressure 120/105 H Blood Pressure Mean 110 Pulse Ox 94 Oxygen Delivery Method Room Air Room Air 10/22/24 17:47 10/22/24 19:00 Temperature Temperature Source Pulse Rate 99 94 Respiratory Rate 24 H 19 H Respiratory Effort Respiratory Depth Blood Pressure 137/93 H Blood Pressure Mean 107 Pulse Ox 92 90 Oxygen Delivery Method Room Air Room Air MDM MDM MDM Narrative Medical decision making narrative: Differential diagnosis includes but not limited to pneumonia versus pneumothorax versus CHF. She has had 4 months of increasing shortness of breath and dyspnea on exertion. History and physical does not support pneumonia or pneumothorax. Regarding her generalized weakness she may have dehydration or other electrolyte imbalance. I have low concern for pulmonary embolism because she is already being treated with Eliquis 5 mg twice a day. In discussion with the patient and her son, they state that he visits frequently, and they decided today that they should do more investigation of her chronic problems that she has had for the last few months instead of waiting to see a primary care provider. Comprehensive workup was pursued. EKG was obtained and interpreted by myself independently as atrial fibrillation with PVCs that is rate controlled at [address] changes. No STEMI. WBC count normal at 9.9 with hemoglobin 13.9, hematocrit 42.9, platelet count normal at 234. Electrolyte panel shows BU (more content not included)... Normal [facility] Eosinophil percentageOrdered By: Jeyson Mayer on 10-22-2024 Eosinophils/100 WBC (Bld) 0.8 % 0-5 [facility] Erythrocyte distribution wid th ratioOrdered By: Jeyson Mayer on 10-22-2024 Erythrocyte distribution width (RBC) [Ratio] 14.2 % 11.6-14.6 [facility] Erythrocyte distribution wid th standard deviationOrdered By: Jeyson Mayer on 10-22-2024 Erythrocyte distribution width (RBC) [Ratio] 53.2 fl High 35.1-43.9 [facility] Glomerular filtration rate ( GFR) estimation/1.73 sq m using serum, plasma, or whole bOrdered By: Jeyson Mayer on 10-22-2024 GFR/1.73 sq M.predicted among non-blacks MDRD (S/P/Bld) [Vol rate/Area] 44 mL/min/{1.73_m2} Low >60 [facility] Comment on above: mL/min/1.73m2 CKD-EP I Creatinine Equation (2020) Hematocrit Auto (Bld) [Volum e fraction]Ordered By: Jeyson Mayer on 10-22-2024 Hematocrit (Bld) [Volume fraction] 42.9 % 37-47 [facility] Hemoglobin measurementOrdere d By: Jeyson Mayer on 10-22-2024 Hemoglobin (Bld) [Mass/Vol] 13.9 g/dL 12.0-15.0 [facility] Immature granulocytes/100 WB C Auto (Bld)Ordered By: Jeyson Mayer on 10-22-2024 Immature granulocytes/100 WBC (Bld) 0.600 % 0.0-0.9 [facility] Comment on above: IG% - Immature Granu locytes (promyelocytes, myelocytes and metamyelocytes) > 1% indicates that a LEFT SHIFT is Present. Ketones Test strip Ql (U)Ord ered By: Jeyson Mayer on 10-22-2024 Ketones Ql (U) Negative Negative [facility] L503.7505on 10-22-2024 Natriuretic peptide B (Bld) [Mass/Vol] 3953 pg/mL High <=1800 [facility] Comment on above: Result Comment: Hear t Failure Unlikely: < 300 pg/mL Heart Failure Likely < 50 Years: > 450 pg/mL 50-75 Years: > 900 pg/mL >75 Years: > 1800 pg/mL Performed By: #### L 500.2500, L100.0100 #### [facility] [address] [place], [address] Laboratory - Chemistry and C hemistry - challengeOrdered By: Jeyson Mayer on 07-14-2025 AST [Catalytic activity/Vol] 27 U/L <32 [facility] MCV (mean corpuscular volume ) determinationOrdered By: Jeyson Mayer on 10-22-2024 MCV (RBC) [Entitic vol] 102.1 fL High 81-99 [facility] Mean corpuscular hemoglobin (MCH) determinationOrdered By: Jeyson Mayer on 10-22-2024 MCH (RBC) [Entitic mass] 33.1 pg High 27.0-32.0 [facility] Mean corpuscular hemoglobin concentration (MCHC) determinationOrdered By: Jeyson Mayer on 10-22-2024 MCHC (RBC) [Mass/Vol] 32.4 g/dL 32-36 [facility] Mean platelet volume determi nationOrdered By: Jeyson Mayer on 10-22-2024 Platelet mean volume (Bld) [Entitic vol] 8.8 fL 6.2-12.0 [facility] Microscopic analysis of urin e for red blood cells (RBC)Ordered By: Jeyson Mayer on 10-22-2024 Microscopic analysis of urine for red blood cells (RBC) 0-5 SEEN /hpf 0-5 [facility] Monocyte percentageOrdered B y: Jeyson Mayer on 10-22-2024 Monocytes/100 WBC (Bld) 7.1 % 0-10 [facility] Mucus LM Ql (Urine sed)Order ed By: Jeyson Mayer on 10-22-2024 Mucus Ql (Urine sed) 0 SEEN /hpf [facility] Natriuretic peptide.B prohor vidhya N-Terminal [Mass/volume] in Serum or PlasmaOrdered By: Jeyson Mayer on 10-22-2024 Natriuretic peptide.B prohormone N-Terminal [Mass/Vol] 3953 pg/mL High <1800 [facility] Comment on above: Heart Failure Unlike ly: < 300 pg/mLHeart Failure Likely< 50 Years: > 450 pg/mL50-75 Years: > 900 pg/mL>75 Years: > 1800 pg/mL Neutrophil percentageOrdered By: Jeyson Mayer on 10-22-2024 Neutrophils/100 WBC (Bld) 73.2 % High 47-70 [facility] Nitrite Test strip Ql (U)Ord ered By: Jeyson Mayer on 10-22-2024 Nitrite Ql (U) Negative Negative [facility] Nucleated red blood cell per centageOrdered By: Jeyson Mayer on 10-22-2024 Nucleated RBC/100 WBC (Bld) [Ratio] 0 % 0-5 [facility] Platelet countOrdered By: Carlos Mayer on 10-22-2024 Platelets (Bld) [#/Vol] 234 10*3/uL 150-450 [facility] Potassium measurement (mass/ volume)Ordered By: Jeyson Mayer on 10-22-2024 Potassium (Unsp spec) [Mass/Vol] 3.6 mmol/L 3.3-5.1 [facility] Protein Test strip Ql (U)Ord ered By: Jeyson Mayer on 10-22-2024 Protein Ql (U) 30 mg/dl High Negative [facility] RBC Auto (Bld) [#/Vol]Ordere d By: Jeyson Mayer on 10-22-2024 RBC (Bld) [#/Vol] 4.20 10*6/uL 4.2-5.4 [facility] Serum creatinine measurement (mass/volume)Ordered By: Jeyson Mayer on 10-22-2024 Creatinine [Mass/Vol] 1.18 mg/dL 0.70-1.20 [facility] Serum globulin measurementOr dered By: Jeyson Mayer on 10-22-2024 Globulin (S) [Mass/Vol] 4.0 g/dL 2.2-4.2 [facility] Serum glucose measurement (m ass/volume)Ordered By: Jeyson Mayer on 10-22-2024 Glucose [Mass/Vol] 84 mg/dL 70-99 [facility] Serum or plasma alanine ball otransferase (ALT) measurementOrdered By: Jeyson Mayer on 10-22-2024 ALT [Catalytic activity/Vol] 28 U/L <35 [facility] Serum or plasma albumin sarbjit urement (mass/volume)Ordered By: Jeyson Mayer on 10-22-2024 Albumin [Mass/Vol] 3.8 g/dL 3.4-4.8 [facility] Serum or plasma albumin/glob ulin mass ratioOrdered By: Jeyson Mayer on 10-22-2024 Albumin/Globulin [Mass ratio] 0.9 {ratio} 0.9-2.4 [facility] Serum or plasma alkaline mauri sphatase measurementOrdered By: Jeyson Mayer on 10-22-2024 ALP [Catalytic activity/Vol] 84 U/L 35-104 [facility] Serum or plasma calcium sarbjit urement (mass/volume)Ordered By: Jeyson Mayer on 10-22-2024 Calcium [Mass/Vol] 10.4 mg/dL 7.6-11.0 [facility] Serum or plasma urea nitroge n measurement (mass/volume)Ordered By: Jeyson Mayer on 10-22-2024 Urea nitrogen [Mass/Vol] 42 mg/dL High 4-19 [facility] Sodium levelOrdered By: Jeyson Mayer on 10-22-2024 Sodium [Moles/Vol] 137 mmol/L 133-145 [facility] Squamous epithelial cells de tection in urine sediment by light microscopyOrdered By: Jeyson Mayer on 10-22-2024 Epithelial cells.squamous LM Ql (Urine sed) 0-5 SEEN /hpf 5-10 [facility] Total proteinOrdered By: Nya Mayer on 10-22-2024 Protein [Mass/Vol] 7.7 g/dL 5.9-8.4 [facility] Urinalysis, Completeon 10-22 BACTERIA 2+ /hpf Normal None Seen [facility] Comment on above: Order Comment: CLEAN CATCH Performed By: #### L 500.2500, L100.0100 #### [facility] [address] [place], [address] EPI,SQUAMOUS 0-5 SEEN Normal 5-10 [facility] Comment on above: Order Comment: CLEAN CATCH Performed By: #### L 500.2500, L100.0100 #### [facility] [address] [place], [address] RBC 0-5 SEEN Normal 0-5 [facility] Comment on above: Order Comment: CLEAN CATCH Performed By: #### L 500.2500, L100.0100 #### [facility] [address], [address] WBC 0-5 SEEN Normal 0-5 [facility] Comment on above: Order Comment: CLEAN CATCH Performed By: #### L 500.2500, L100.0100 #### [facility] [address] [place], [address] Mucus Ql (Urine sed) 0 SEEN Normal [facility] Comment on above: Order Comment: CLEAN CATCH Performed By: #### L 500.2500, L100.0100 #### [facility] [address] [place], [address] Urine clarityOrdered By: Nya Mayer on 10-22-2024 Clarity (U) Sl. Cloudy Clear [facility] Urine color determinationOrd ered By: Jeyson Mayer on 10-22-2024 Color (U) Yellow Yellow [facility] Urine glucose detectionOrder ed By: Jeyson Mayer on 10-22-2024 Glucose Ql (U) Normal mg/dl Normal [facility] Urine leukocyte esterase det ection by dipstickOrdered By: Jeyson Mayer on 10-22-2024 Leukocyte esterase Test strip Ql (U) 25 /ul High Negative [facility] Urine pHOrdered By: Jeyson barrios on 10-22-2024 pH (U) 6.0 [pH] 5.0 - 8.0 [facility] Urine sediment bacteria coun t by microscopy (number/high power field)Ordered By: Jeyson Mayer on 10-22-2024 Bacteria LM.HPF (Urine sed) [#/Area] 2 /[HPF] None Seen [facility] Urine specific gravity measu rementOrdered By: Jeyson Mayer on 10-22-2024 Specific gravity (U) [Rel density] 1.010 1.002-1.030 [facility] Urine urobilinogen measureme ntOrdered By: Jeyson Mayer on 10-22-2024 Urobilinogen Ql (U) 1 mg/dl High Normal [facility] White blood cell (WBC) count Ordered By: Jeyson Mayer on 10-22-2024 WBC (Bld) [#/Vol] 9.9 10*3/uL 4.4-11.0 [facility] White blood cell countOrdere d By: Jeyson Mayer on 10-22-2024 White blood cell count 0-5 SEEN /hpf 0-5 [facility] CBC W Auto Differential pane l (Bld)on 10-01-2024 Basophils (Bld) [#/Vol] 0.05 10*3/uL Normal <0.11 [facility] Comment on above: Order Comment: Speci men Type: BLOOD SPECIMEN Ordering Facility: [facility] Address: [address] [place] [address] Performed By: #### 5 7021-8 #### [facility] CLIA [id number] [address] [place] [address] [place] Basophils/100 WBC (Bld) 0.5 % Normal C [facility] Comment on above: Order Comment: Speci men Type: BLOOD SPECIMEN Ordering Facility: [facility] Address: [address] [place] [address] Performed By: #### 5 7021-8 #### [facility] CLIA [id number] [address] [place] [address] [place] Differential cell count method Nom (Bld) Auto Normal [facility] Comment on above: Order Comment: Speci men Type: BLOOD SPECIMEN Ordering Facility: [facility] Address: [address] [place] [address] Performed By: #### 5 7021-8 #### [facility] CLIA [id number] [address] [place] [address] [place] Eosinophils (Bld) [#/Vol] 0.09 10*3/uL Normal <0.46 [facility] Comment on above: Order Comment: Speci men Type: BLOOD SPECIMEN Ordering Facility: [facility] Address: [address] [place] [address] Performed By: #### 5 7021-8 #### [facility] CLIA [id number] [address] [place], [place] [id number] [place] Eosinophils/100 WBC (Bld) 0.9 % Normal [facility] Comment on above: Order Comment: Speci men Type: BLOOD SPECIMEN Ordering Facility: [facility] Address: [address] [place] [address] Performed By: #### 5 7021-8 #### [facility] CLIA [id number] [address] [place] [address] [place] Erythrocyte distribution width (RBC) [Ratio] 14.4 % Normal 11.5-15.0 [facility] Comment on above: Order Comment: Speci men Type: BLOOD SPECIMEN Ordering Facility: [facility] Address: [address] [place] [address] Performed By: #### 5 7021-8 #### [id number] [address] [place] [address] [place] Hematocrit (Bld) [Volume fraction] 38.1 % Normal 36.0-46.0 [facility] Comment on above: Order Comment: Speci men Type: BLOOD SPECIMEN Ordering Facility: [facility] Address: [address] [place] [address] Performed By: #### 5 7021-8 #### [facility] [id number] [address] [place] [address] [place] Hemoglobin (Bld) [Mass/Vol] 12.7 g/dL Normal 11.5-15.5 [facility] Comment on above: Order Comment: Speci men Type: BLOOD SPECIMEN Ordering Facility: [facility] Address: [address] [place] [address] Performed By: #### 5 7021-8 #### [facility] [id number] [address] [place] [address] [place] Immature granulocytes (Bld) [#/Vol] 0.07 10*3/uL Normal <0.10 [facility] Comment on above: Order Comment: Speci men Type: BLOOD SPECIMEN Ordering Facility: [facility] Address: [address] [place] [address] Performed By: #### 5 7021-8 #### [facility] CLIA [id number] [address] [place] [address] [place] Immature granulocytes/100 WBC (Bld) 0.7 % Normal [facility] Comment on above: Order Comment: Speci men Type: BLOOD SPECIMEN Ordering Facility: [facility] Address: [address] [place] [address] Performed By: #### 5 7021-8 #### [facility] CLIA [id number] [address] [place] [address] [place] Lymphocytes (Bld) [#/Vol] 1.43 10*3/uL Normal 1.00-4.00 [facility] Comment on above: Order Comment: Speci men Type: BLOOD SPECIMEN Ordering Facility: [facility] Address: [address] [place] [address] Performed By: #### 5 7021-8 #### [facility] CLIA [id number] [address] [place] [address] [place] Lymphocytes/100 WBC (Bld) 14.7 % Normal [facility] Comment on above: Order Comment: Speci men Type: BLOOD SPECIMEN Ordering Facility: [facility] Address: [address] [place] [address] Performed By: #### 5 7021-8 #### [facility] CLIA [id number] [address] [place] [address] [place] MCH (RBC) [Entitic mass] 33.1 pg Normal 26.0-34.0 [facility] Comment on above: Order Comment: Speci men Type: BLOOD SPECIMEN Ordering Facility: [facility] Address: [address] [place] [address] Performed By: #### 5 7021-8 #### [facility] CLIA [id number] [address] [place] [address] [place] MCHC (RBC) [Mass/Vol] 33.3 g/dL Normal 30.5-36.0 [facility] Comment on above: Order Comment: Speci men Type: BLOOD SPECIMEN Ordering Facility: [facility] Address: [address] [place] [address] Performed By: #### 5 7021-8 #### [facility] CLIA [id number] [address] [place] [address] [place] MCV (RBC) [Entitic vol] 99.2 fL Normal 80.0-100.0 C [facility] Comment on above: Order Comment: Speci men Type: BLOOD SPECIMEN Ordering Facility: [facility] Address: [address] [place] [address] Performed By: #### 5 7021-8 #### [facility] CLIA [id number] [address] [place] [address] [place] Monocytes (Bld) [#/Vol] 0.71 10*3/uL Normal <0.87 [facility] Comment on above: Order Comment: Speci men Type: BLOOD SPECIMEN Ordering Facility: [facility] Address: [address] [place] [address] Performed By: #### 5 7021-8 #### [facility] CLIA [id number] [address] [place] [address] [place] Monocytes/100 WBC (Bld) 7.3 % Normal C [facility] Comment on above: Order Comment: Speci men Type: BLOOD SPECIMEN Ordering Facility: [facility] Address: [address] [place] [address] Performed By: #### 5 7021-8 #### [facility] CLIA [id number] [address] [place] [address] [place] Neutrophils (Bld) [#/Vol] 7.41 10*3/uL Normal 1.45-7.50 [facility] Comment on above: Order Comment: Speci men Type: BLOOD SPECIMEN Ordering Facility: [facility] Address: [address] [place] [address] Performed By: #### 5 7021-8 #### [facility] CLIA [id number] [address] [place] [address] [place] Neutrophils/100 WBC (Bld) 75.9 % Normal [facility] Comment on above: Order Comment: Speci men Type: BLOOD SPECIMEN Ordering Facility: [facility] Address: [address] [place] [address] Performed By: #### 5 7021-8 #### [facility] CLIA [id number] [address] [place] [address] [place] Nucleated RBC (Bld) [#/Vol] 10*3/uL Normal <0.01 [facility] Comment on above: Order Comment: Speci men Type: BLOOD SPECIMEN Ordering Facility: [facility] Address: [address] [place] [address] Performed By: #### 5 7021-8 #### [facility] CLIA [id number] [address] [place] [address] [place] Nucleated RBC/100 WBC (Bld) [Ratio] 0.0 /100 WBC Normal [facility] Comment on above: Order Comment: Speci men Type: BLOOD SPECIMEN Ordering Facility: [facility] Address: [address] [place] [address] Performed By: #### 5 7021-8 #### [facility] CLIA [id number] [address] [place] [address] [place] Platelet mean volume (Bld) [Entitic vol] 8.5 fL Low 9.0-12.7 [facility] Comment on above: Order Comment: Speci men Type: BLOOD SPECIMEN Ordering Facility: [facility] Address: [address] [place] [address] Performed By: #### 5 7021-8 #### [facility] CLIA [id number] [address] [place] [address] [place] Platelets (Bld) [#/Vol] 215 10*3/uL Normal 150-400 [facility] Comment on above: Order Comment: Speci men Type: BLOOD SPECIMEN Ordering Facility: [facility] Address: [address] [place] [address] Performed By: #### 5 7021-8 #### [facility] CLIA [id number] [address] [place] [address] [place] RBC (Bld) [#/Vol] 3.84 10*6/uL Low 3.90-5.20 [facility] Comment on above: Order Comment: Speci men Type: BLOOD SPECIMEN Ordering Facility: [facility] Address: [address] [place] [address] Performed By: #### 5 7021-8 #### [facility] CLIA [id number] [address] [place] [address] [place] WBC (Bld) [#/Vol] 9.76 10*3/uL Normal 3.70-11.00 [facility] Comment on above: Order Comment: Speci men Type: BLOOD SPECIMEN Ordering Facility: [facility] Address: [address] [place] [address] Performed By: #### 5 7021-8 #### [facility] CLIA [id number] [address] [place] [address] [place] Comprehensive metabolic 2000 panelon 10-01-2024 Albumin [Mass/Vol] 3.5 g/dL Low 3.9-4.9 [facility] Comment on above: Order Comment: Speci men Type: BLOOD SPECIMEN Ordering Facility: [facility] Address: [address] [place] [address] Performed By: #### 2 4323-8 #### [facility] CLIA [id number] [address] [place] [address] [place] ALP [Catalytic activity/Vol] 75 U/L Normal 34-123 [facility] Comment on above: Order Comment: Speci men Type: BLOOD SPECIMEN Ordering Facility: [facility] Address: [address] [place] [address] Performed By: #### 2 4323-8 #### [facility] CLIA [id number] [address] [place] [address] [place] ALT [Catalytic activity/Vol] 27 U/L Normal 7-38 [facility] Comment on above: Order Comment: Speci men Type: BLOOD SPECIMEN Ordering Facility: [facility] Address: [address] [place] [address] Performed By: #### 2 4323-8 #### [facility] CLIA [id number] [address] [place] [address] [place] Anion gap [Moles/Vol] 13 mmol/L Normal 8-15 [facility] Comment on above: Order Comment: Speci men Type: BLOOD SPECIMEN Ordering Facility: [facility] Address: [address] [place] [address] Performed By: #### 2 4323-8 #### [facility] CLIA [id number] [address] [place] [address] [place] AST [Catalytic activity/Vol] Normal [facility] Comment on above: Order Comment: Speci men Type: BLOOD SPECIMEN Ordering Facility: [facility] Address: [address] [place] [address] Result Comment: Unab le to assay. Specimen significantly hemolyzed. Performed By: #### 2 4323-8 #### [facility] CLIA [id number] [address] [place] [address] [place] Bilirubin [Mass/Vol] 1.5 mg/dL High 0.2-1.3 [facility] Comment on above: Order Comment: Speci men Type: BLOOD SPECIMEN Ordering Facility: [facility] Address: [address] [place] [address] Performed By: #### 2 4323-8 #### [facility] CL[facility] [id number] [address] [place] [address] [place] Calcium [Mass/Vol] 10.2 mg/dL Normal 8.5-10.2 [facility] Comment on above: Order Comment: Speci men Type: BLOOD SPECIMEN Ordering Facility: [facility] Address: [address] [place] [address] Performed By: #### 2 4323-8 #### [facility] CLIA [id number] [address] [place] [address] [place] Chloride [Moles/Vol] 98 mmol/L Normal 98-107 [facility] Comment on above: Order Comment: Speci men Type: BLOOD SPECIMEN Ordering Facility: [facility] Address: [address] [place] [address] Performed By: #### 2 4323-8 #### [facility] CLIA [id number] [address] [place] [address] [place] CO2 [Moles/Vol] 21 mmol/L Low 22-30 [facility] Comment on above: Order Comment: Speci men Type: BLOOD SPECIMEN Ordering Facility: [facility] Address: [address] [place] [address] Performed By: #### 2 4323-8 #### [facility] CLIA [id number] [address] [place] [address] [place] Creatinine [Mass/Vol] 0.83 mg/dL Normal 0.58-0.96 [facility] Comment on above: Order Comment: Speci men Type: BLOOD SPECIMEN Ordering Facility: [facility] Address: [address] [place] [address] Performed By: #### 2 4323-8 #### [id number] [address] [place] [address] [place] Creatinine and Glomerular filtration rate.predicted panel (S/P/Bld) 67 mL/min/1.73m??? Normal >=60 [facility] Comment on above: Order Comment: Jazmin moya Type: BLOOD SPECIMEN Ordering Facility: [facility] Address: [address] [place] [address] Result Comment: Dana mated Glomerular Filtration Rate (eGFR) is calculated using the 2020 CKD-EPI creatinine equation. This equation utilizes serum creatinine, sex, and age as parameters. The creatinine assay has traceable calibration to isotope dilution-mass spectrometry. Refer to KDIGO guidelines for clinical interpretation. In patients with unstable renal function, e.g. those with acute kidney injury, the eGFR may not accurately reflect actual GFR. Performed By: #### 2 4323-8 #### [facility] [id number] [address] [place] [address] [place] Glucose [Mass/Vol] 103 mg/dL High 74-99 [facility] Comment on above: Order Comment: Jazmin moya Type: BLOOD SPECIMEN Ordering Facility: [facility] Address: [address] [place] [address] Result Comment: The [place] [employer] (ADA) provides guidance for cutoff [...] Standards of Medical Care in Diabetes 2016, [place] [employer]. Diabetes Care. 2016.39(Suppl 1). Performed By: #### 2 4323-8 #### [facility] [id number] [address] [place] [address] [place] Potassium [Moles/Vol] 4.1 mmol/L Normal 3.7-5.1 [facility] Comment on above: Order Comment: Speci men Type: BLOOD SPECIMEN Ordering Facility: [facility] Address: [address] [place] [address] Performed By: #### 2 4323-8 #### [facility] CLIA [id number] [address] [place] [address] [place] Protein [Mass/Vol] 7.1 g/dL Normal 6.3-8.0 [facility] Comment on above: Order Comment: Speci men Type: BLOOD SPECIMEN Ordering Facility: [facility] Address: [address] [place] [address] Performed By: #### 2 4323-8 #### [facility] CLIA [id number] [address] [place] [address] [place] Sodium [Moles/Vol] 132 mmol/L Low 136-144 [facility] Comment on above: Order Comment: Speci men Type: BLOOD SPECIMEN Ordering Facility: [facility] Address: [address] [place] [address] Performed By: #### 2 4323-8 #### [facility] CLIA [id number] [address] [place] [address] [place] Urea nitrogen [Mass/Vol] 25 mg/dL High 7-21 [facility] Comment on above: Order Comment: Speci men Type: BLOOD SPECIMEN Ordering Facility: [facility] Address: [address] [place] [address] Performed By: #### 2 4323-8 #### [facility] CLIA [id number] [address] [place] [address] [place] TSH SerPl-aCncon 10-01-2024 TSH Qn 3.210 m[IU]/L Normal 0.270-4.200 [facility] Comment on above: Order Comment: Speci men Type: BLOOD SPECIMEN Ordering Facility: [facility] Address: [address] [place] [address] Performed By: #### 3 016-3 #### [facility] CLIA [id number] [address] [place] [address] [place] [address] [place] CNOVon 09-17-2024 CNOV Office Visit ([facility]) ESTEBAN WOODS ([id number]) 1935 F [facility] Date Time Provider Department 09/17/24 1:00 PM KODAK HARDING [facility] During your visit today, we recorded the [...] 1-dose 75+ series) declined Covid-19 Vaccine( - ) declined Esteban Lucio Peggy is here today [...] and good cognition to operate a manual wheelchair.Additiona l features patient would need is leg rests. The progression of her condition relatively nonprogressive. Patient has a Son who is lives/assists patient, and is able to help patient with ambulation. The patient would benefit from a manual wheelchair. ave any questions or concerns. No refills needed Kathy Garrett LPN September 17, 2024 1:09 PM Kodak Harding MD 09/17/2024 2:13 PM Signed Subjective [...] itching PSYCH: Negative for anxiety or depression HEMATOLOGY/LYMPHOLOG Y: No bleeding concerns NEURO: No history of [...] Take 1 tablet by mouth once daily. losartan-hydroCHLORO thiazide (HYZAAR) 100-25 mg per tablet Take 1 tablet by mouth once daily. verapamil SR (CALAN SR) 180 mg CR tablet Take 2 tablets by mouth daily at bedtime. ns-no-ZK-vit Y-xnulv-eho-coQ10 (DAILY MULTIVITAMIN) 200-100-500 mcg cap Take 1 [...] BP Position: Sitting, BP Cuff Size: Regular (more content not included)... [facility] CNOVon 07-30-2024 [facility] ESTEBAN WOODS ([id number]) 1935 F [facility] Date Time Provider Department 07/30/24 1:00 PM KODAK HARDING During your visit today, we recorded the [...] to reduce risk of recurrence of UTI prison current use of anticoagulant therapy Z79.01 Eliquis twice daily Acute heart failure with mildly reduced ejection fraction (HFmrEF, 41-49%) ([facility]) I50.21 Improved on Lasix Patient has been experiencing shortness of breath after ambulation. Denies UTI symptoms. Patient states that edema has been decreased. No refills needed Kathy Garrett LPN July 30, 2024 1:01 PM Kodak Harding MD 07/30/2024 1:53 PM Signed Subjective [...] itching PSYCH: Negative for anxiety or depression HEMATOLOGY/LYMPHOLOG Y: No bleeding concerns NEURO: No history of [...] Take 1 tablet by mouth once daily. losartan-hydroCHLORO thiazide (HYZAAR) 100-25 mg per tablet Take 1 tablet by mouth once daily. verapamil SR (CALAN SR) 180 mg CR tablet Take 2 tablets by mouth daily at bedtime. oo-zw-FQ-vit O-wwsnv-qra-coQ10 (DAILY MULTIVITAMIN) 200-100-500 mcg cap Take 1 [...] (Temporal) Resp 20 Ht 157.5 cm (5' 2) Wt 71.7 kg (158 lb) SpO2 94% [...] bruits. LUNGS: Clear to auscultation bilaterally, no wheezes/rhonchi/rale s. HEART: Regular rate and rhythm, no murmurs. No ectopy. EXTREMITIES: Normal, no deform (more content not included)... Normal [facility] CNOVon 06-27-2024 CNOV Office Visit ([facility]) ESTEBAN WOODS ([id number]) 1935 F [facility] Date Time Provider Department 06/27/24 1:00 PM KODAK HARDING During your visit today, we recorded the following information about you: Temperature Pulse Respiration Blood pressure 96.9 degrees 105/minute 18/minute 122/78 Weight Height 69.4 kg 1.575 m Kathy Garrett LPN 06/27/2024 2:08 PM Signed Patient is in office for a Transition of Care Visit following recent hospital stay. Patient was evaluated and treated at [facility] from 06-11-2024 to 06-15-2024 for UTI with [...] Garrett LPN June 27, 2024 1:03 PM Kodak Harding MD 06/27/2024 2:08 PM Signed Subjective Esteban Woods is a 88 year old female.Patient is in office for a Transition of Care Visit following recent hospital stay. Patient was evaluated and treated at [facility] from 06-11-2024 to 06-15-2024 for UTI with [...] Negative. Genitourinary: Negative. Musculoskeletal: Negative. Skin: Negative. Allergic/Immunologic : Negative. Neurological: Negative. Hematological: Negative. Psychiatric/Behavior al: Negative. History reviewed. No pertinent surgical history. [...] Take 1 tablet by mouth once daily. losartan-hydroCHLORO thiazide (HYZAAR) 100-25 mg per tablet Take 1 tablet by mouth once daily. verapamil SR (CALAN SR) 180 mg CR tablet Take 2 tablets by mouth daily at bedtime. xz-rm-MG-vit V-lywjz-alg-coQ10 (DAILY MULTIVITAMIN) 200-100-500 mcg cap Take 1 [...] (Temporal) Resp 18 Ht 157.5 cm (5' 2) Wt 69.4 kg (153 lb) SpO2 95% [...] unspecified organism, unspecified whether acute organ dysfunction p (more content not included)... Normal [facility] L503.7505on 06-25-2024 Natriuretic peptide B (Bld) [Mass/Vol] 4739 pg/mL High <=1800 [facility] Comment on above: Performed By: #### L 500.2500, L100.0100 #### [facility] [address] [place], [address] Culture, Blood (WB)on 2024 CUB Blood cultures x2, from two different sites No growth in 5 days. Normal [facility] Comment on above: Performed By: #### L 500.2500, L100.0100 #### [facility] [address] [place], [address] CUB Blood cultures x2, from two different sites No growth in 5 days. Normal [facility] Comment on above: Performed By: #### L 500.2500, L100.0100 #### [facility] [address] [place], [address] Absolute neutrophil countOrd ered By: Aster Ramsey on 06-14-2024 Neutrophils (Bld) [#/Vol] 13.0 10*3/uL High 2.0-7.7 [facility] Anion gap in Serum or Plasma Ordered By: Aster Ramsey on 06-14-2024 Anion gap [Moles/Vol] 13 mmol/L 5-15 [facility] BUN/creatinine ratioOrdered By: Aster Ramsey on 06-14-2024 Urea nitrogen/Creatinine [Mass ratio] 29.5 mg/mg High 10-20 [facility] Basophil percentageOrdered B y: Aster Ramsey on 06-14-2024 Basophils/100 WBC (Bld) 0.5 % 0-1 [facility] Bilirubin, totalOrdered By: Aster Ramsey on 06-14-2024 Bilirubin [Mass/Vol] 0.60 mg/dL 0.00-1.30 [facility] CBC W/Diff, Automatedon 03 Absolute Lymph 1.94 X10 3/uL Normal 0.83-4.51 [facility] Comment on above: Performed By: #### L 500.2500, L100.0100 #### [facility] [address] [place], [address] Absolute Neut 13.0 X10 3/uL High 2.0-7.7 [facility] Comment on above: Performed By: #### L 500.2500, L100.0100 #### [facility] [address] [place], [address] Basophils/100 WBC (Bld) 0.5 % Normal 0-1 [facility] Comment on above: Performed By: #### L 500.2500, L100.0100 #### [facility] [address] [place], [address] Eosinophils/100 WBC (Bld) 0.7 % Normal 0-5 [facility] Comment on above: Performed By: #### L 500.2500, L100.0100 #### [facility] [address] [place], [address] Erythrocyte distribution width (RBC) [Ratio] 13.3 % Normal 11.6-14.6 [facility] Comment on above: Performed By: #### L 500.2500, L100.0100 #### [facility] [address] [place], [address] Hematocrit (Bld) [Volume fraction] 43.8 % Normal 37-47 [facility] Comment on above: Performed By: #### L 500.2500, L100.0100 #### [facility] [address] [place], [address] Hemoglobin (Bld) [Mass/Vol] 14.7 g/dL Normal 12.0-15.0 [facility] Comment on above: Performed By: #### L 500.2500, L100.0100 #### [facility] [address] [place], [address] IG% 0.700 Normal 0.0-0.9 [facility] Comment on above: Result Comment: IG% - Immature Granulocytes (promyelocytes, myelocytes and metamyelocytes) > 1% indicates that a LEFT SHIFT is Present. Performed By: #### L 500.2500, L100.0100 #### [facility] [address] [place], [address] Lymphocytes/100 WBC (Bld) 12.0 % Low 19-41 [facility] Comment on above: Performed By: #### L 500.2500, L100.0100 #### [facility] [address] [place], [address] MCH (RBC) [Entitic mass] 32.7 pg High 27.0-32.0 [facility] Comment on above: Performed By: #### L 500.2500, L100.0100 #### [facility] [address] [place], [address] MCHC (RBC) [Mass/Vol] 33.6 g/dL Normal 32-36 [facility] Comment on above: Performed By: #### L 500.2500, L100.0100 #### [facility] [address] [place], [address] MCV (RBC) [Entitic vol] 97.3 fL Normal 81-99 [facility] Comment on above: Performed By: #### L 500.2500, L100.0100 #### [facility] [address] [place], [address] Monocytes/100 WBC (Bld) 6.2 % Normal 0-10 [facility] Comment on above: Performed By: #### L 500.2500, L100.0100 #### [facility] [address] [place], [address] Neutrophils/100 WBC (Bld) 79.9 % High 47-70 [facility] Comment on above: Performed By: #### L 500.2500, L100.0100 #### [facility] [address] [place], [address] Nucleated RBC (Bld) [#/Vol] 0 10*3/uL Normal 0-5 [facility] Comment on above: Performed By: #### L 500.2500, L100.0100 #### [facility] [address] [place], [address] Platelet mean volume (Bld) [Entitic vol] 9.3 fL Normal 6.2-12.0 [facility] Comment on above: Performed By: #### L 500.2500, L100.0100 #### [facility] [address] [place], [address] Platelets (Bld) [#/Vol] 260 10*3/uL Normal 150-450 [facility] Comment on above: Performed By: #### L 500.2500, L100.0100 #### [facility] [address] [place], [address] RBC (Bld) [#/Vol] 4.50 10*6/uL Normal 4.2-5.4 [facility] Comment on above: Performed By: #### L 500.2500, L100.0100 #### [facility] [address] [place], [address] RDW SD 47.5 fl High 35.1-43.9 [facility] Comment on above: Performed By: #### L 500.2500, L100.0100 #### [facility] [address] [place], [address] WBC (Bld) [#/Vol] 16.2 10*3/uL High 4.4-11.0 [facility] Comment on above: Performed By: #### L 500.2500, L100.0100 #### [facility] [address] [place], [address] Carbon dioxide, total [Moles /volume] in Central venous bloodOrdered By: Aster Ramsey on 06-14-2024 CO2 [Moles/Vol] 23.8 mmol/L 21.0-32.0 [facility] Chloride assayOrdered By: Jovany Ramsey on 06-14-2024 Chloride [Moles/Vol] 97 mmol/L Low 98-108 [facility] Comprehensive Metabolic Prof ilon 06-14-2024 Albumin [Mass/Vol] 3.3 g/dL Low 3.4-4.8 [facility] Comment on above: Performed By: #### L 500.2500, L100.0100 #### [facility] [address] [place], [address] Albumin/Globulin [Mass ratio] 0.8 {ratio} Low 0.9-2.4 [facility] Comment on above: Performed By: #### L 500.2500, L100.0100 #### [facility] [address] [place], [address] ALK PHOS 70 U/L Normal 35-104 [facility] Comment on above: Performed By: #### L 500.2500, L100.0100 #### [facility] [address] [place], [address] ALT [Catalytic activity/Vol] 14 U/L Normal <=34 [facility] Comment on above: Performed By: #### L 500.2500, L100.0100 #### [facility] [address] [place], [address] AST [Catalytic activity/Vol] 19 U/L Normal <=31 [facility] Comment on above: Performed By: #### L 500.2500, L100.0100 #### [facility] [address] [place], [address] Bilirubin [Mass/Vol] 0.60 mg/dL Normal 0.00-1.30 [facility] Comment on above: Performed By: #### L 500.2500, L100.0100 #### [facility] [address] [place], [address] BUN/CRE 29.5 RATIO High 10-20 [facility] Comment on above: Performed By: #### L 500.2500, L100.0100 #### [facility] [address] [place], [address] Calcium [Mass/Vol] 9.7 mg/dL Normal 7.6-11.0 [facility] Comment on above: Performed By: #### L 500.2500, L100.0100 #### [facility] [address] [place], [address] Chloride [Moles/Vol] 97 mmol/L Low 98-108 [facility] Comment on above: Performed By: #### L 500.2500, L100.0100 #### [facility] [address] [place], [address] CO2 [Moles/Vol] 23.8 mmol/L Normal 21.0-32.0 [facility] Comment on above: Performed By: #### L 500.2500, L100.0100 #### [facility] [address] [place], [address] Creatinine [Mass/Vol] 1.11 mg/dL Normal 0.70-1.20 [facility] Comment on above: Performed By: #### L 500.2500, L100.0100 #### [facility] [address] [place], [address] ECRCL 32.00 ml/min Low 50-250 [facility] Comment on above: Performed By: #### L 500.2500, L100.0100 #### [facility] [address] [place], [address] GAP 13 Normal 5-15 [facility] Comment on above: Performed By: #### L 500.2500, L100.0100 #### [facility] [address] [place], [address] GFR/1.73 sq M.predicted among non-blacks MDRD (S/P/Bld) [Vol rate/Area] 48 mL/min/{1.73_m2} Low >60 [facility] Comment on above: Result Comment: mL/m in/1.73m2 CKD-EPI Creatinine Equation (2020) Performed By: #### L 500.2500, L100.0100 #### [facility] [address] [place], [address] Globulin (S) [Mass/Vol] 4.2 g/dL Normal 2.2-4.2 [facility] Comment on above: Performed By: #### L 500.2500, L100.0100 #### [facility] [address] [place], [address] Glucose [Mass/Vol] 166 mg/dL High 70-99 [facility] Comment on above: Performed By: #### L 500.2500, L100.0100 #### [facility] [address] [place], [address] Potassium [Moles/Vol] 3.4 mmol/L Normal 3.3-5.1 [facility] Comment on above: Performed By: #### L 500.2500, L100.0100 #### [facility] [address] [place], [address] Sodium [Moles/Vol] 135 mmol/L Normal 133-145 [facility] Comment on above: Performed By: #### L 500.2500, L100.0100 #### [facility] [address] [place], [address] T PROT 7.5 g/dL Normal 5.9-8.4 [facility] Comment on above: Performed By: #### L 500.2500, L100.0100 #### [facility] [address] [place], [address] Urea nitrogen [Mass/Vol] 33 mg/dL High 4-19 [facility] Comment on above: Performed By: #### L 500.2500, L100.0100 #### [facility] [address] [place], [address] Eosinophil percentageOrdered By: Aster Ramsey on 06-14-2024 Eosinophils/100 WBC (Bld) 0.7 % 0-5 [facility] Erythrocyte distribution wid th ratioOrdered By: Aster Ramsey on 06-14-2024 Erythrocyte distribution width (RBC) [Ratio] 13.3 % 11.6-14.6 [facility] Erythrocyte distribution wid th standard deviationOrdered By: Aster Ramsey on 06-14-2024 Erythrocyte distribution width (RBC) [Entitic vol] 47.5 fL High 35.1-43.9 [facility] Estimation of creatinine rianna aranceOrdered By: Aster Ramsey on 06-14-2024 Estimated Creatinine Clearance Calc 32.00 ml/min Low 50-250 [facility] GFR/1.73 sq M.predicted elio g non-blacks MDRD (S/P/Bld) [Vol rate/Area]Ordered By: Aster Ramsey on 06-14-2024 Estimated GFR (MDRD) Non-Af Amer 48 Low >60 [facility] Comment on above: mL/min/1.73m2 CKD-EP I Creatinine Equation (2020) Hematocrit Auto (Bld) [Volum e fraction]Ordered By: Aster Ramsey on 06-14-2024 Hematocrit (Bld) [Volume fraction] 43.8 % 37-47 [facility] Hemoglobin measurementOrdere d By: Aster Ramsey on 06-14-2024 Hemoglobin (Bld) [Mass/Vol] 14.7 g/dL 12.0-15.0 [facility] Immature granulocytes/100 WB C Auto (Bld)Ordered By: Aster Ramsey on 06-14-2024 Immature granulocytes/100 WBC (Bld) 0.700 % 0.0-0.9 [facility] Comment on above: IG% - Immature Granu locytes (promyelocytes, myelocytes and metamyelocytes) > 1% indicates that a LEFT SHIFT is Present. Laboratory - Chemistry and C hemistry - challengeOrdered By: Aster Ramsey on 06-14-2024 AST [Catalytic activity/Vol] 19 U/L <32 [facility] Lymphocytes Auto (Unsp spec) [#/Vol]Ordered By: Aster Ramsey on 06-14-2024 Lymphocytes (Bld) [#/Vol] 1.94 10*3/uL 0.83-4.51 [facility] Lymphocytes/100 WBC Auto (Un sp spec)Ordered By: Aster Ramsey on 06-14-2024 Lymphocytes/100 WBC (Bld) 12.0 % Low 19-41 [facility] MCV (mean corpuscular volume ) determinationOrdered By: Aster Ramsey on 06-14-2024 MCV (RBC) [Entitic vol] 97.3 fL 81-99 [facility] Mean corpuscular hemoglobin (MCH) determinationOrdered By: Aster Ramsey on 06-14-2024 MCH (RBC) [Entitic mass] 32.7 pg High 27.0-32.0 [facility] Mean corpuscular hemoglobin concentration (MCHC) determinationOrdered By: Aster Ramsey on 06-14-2024 MCHC (RBC) [Mass/Vol] 33.6 g/dL 32-36 [facility] Mean platelet volume determi nationOrdered By: Aster Ramsey on 06-14-2024 Platelet mean volume (Bld) [Entitic vol] 9.3 fL 6.2-12.0 [facility] Monocyte percentageOrdered B y: Aster Ramsey on 06-14-2024 Monocytes/100 WBC (Bld) 6.2 % 0-10 [facility] Neutrophil percentageOrdered By: Aster Ramsey on 06-14-2024 Neutrophils/100 WBC (Bld) 79.9 % High 47-70 [facility] Nucleated red blood cell per centageOrdered By: Aster Ramsey on 06-14-2024 Nucleated RBC/100 WBC (Bld) [Ratio] 0 % 0-5 [facility] Platelet countOrdered By: Jovany Ramsey on 06-14-2024 Platelets (Bld) [#/Vol] 260 10*3/uL 150-450 [facility] Potassium (Unsp spec) [Mass/ Vol]Ordered By: Aster Ramsey on 06-14-2024 Potassium [Moles/Vol] 3.4 mmol/L 3.3-5.1 [facility] RBC Auto (Bld) [#/Vol]Ordere d By: Aster Ramsey on 06-14-2024 RBC (Bld) [#/Vol] 4.50 10*6/uL 4.2-5.4 [facility] Serum creatinine measurement (mass/volume)Ordered By: Aster Ramsey on 06-14-2024 Creatinine [Mass/Vol] 1.11 mg/dL 0.70-1.20 [facility] Serum globulin measurementOr dered By: Aster Ramsey on 06-14-2024 Globulin (S) [Mass/Vol] 4.2 g/dL 2.2-4.2 [facility] Serum glucose measurement (m ass/volume)Ordered By: Aster Ramsey on 06-14-2024 Glucose [Mass/Vol] 166 mg/dL High 70-99 [facility] Serum or plasma alanine ball otransferase (ALT) measurementOrdered By: Aster Ramsey on 06-14-2024 ALT [Catalytic activity/Vol] 14 U/L <35 [facility] Serum or plasma albumin sarbjit urement (mass/volume)Ordered By: Aster Ramsey on 06-14-2024 Albumin [Mass/Vol] 3.3 g/dL Low 3.4-4.8 [facility] Serum or plasma albumin/glob ulin mass ratioOrdered By: Aster Ramsey on 06-14-2024 Albumin/Globulin [Mass ratio] 0.8 {ratio} Low 0.9-2.4 [facility] Serum or plasma alkaline mauri sphatase measurementOrdered By: Aster Ramsey on 06-14-2024 ALP [Catalytic activity/Vol] 70 U/L 35-104 [facility] Serum or plasma calcium sarbjit urement (mass/volume)Ordered By: Aster Ramsey on 06-14-2024 Calcium [Mass/Vol] 9.7 mg/dL 7.6-11.0 [facility] Serum or plasma urea nitroge n measurement (mass/volume)Ordered By: Aster Ramsey on 06-14-2024 Urea nitrogen [Mass/Vol] 33 mg/dL High 4-19 [facility] Sodium levelOrdered By: Azam Ramsey on 06-14-2024 Sodium [Moles/Vol] 135 mmol/L 133-145 [facility] Total proteinOrdered By: Norma Ramsey on 06-14-2024 Protein [Mass/Vol] 7.5 g/dL 5.9-8.4 [facility] Urine Cultureon 06-14-2024 [facility] #2 Organism is too fastidious for routine susceptibility studies. Presumptive E. coli [place] Count 50,000-80,000 Aerococcus sanguinicola Aerococcus sanguinicola Presumptive E. coli: REACTION Ampicillin Islt GERI 4 S Ampicillin+Sulbac Islt GERI <=2 Cefepime Islt GERI <=0.12 S cefTRIAXone Islt GERI <=0.25 S Ciprofloxacin Islt GERI <=0.06 S B-Lactamase Extended Susc Islt NEG Gentamicin Islt GERI <=1 S levoFLOXacin Islt GERI <=0.12 S Meropenem Islt GERI <=0.25 S Nitrofurantoin Islt GERI <=16 S Pip+Tazo Islt GERI <=4 S TMP SMX Islt GERI <=20 S Normal [facility] Comment on above: Performed By: #### L 500.2500, L100.0100 #### [facility] [address] [place], [address] White blood cell (WBC) count Ordered By: Aster Ramsey on 06-14-2024 WBC (Bld) [#/Vol] 16.2 10*3/uL High 4.4-11.0 [facility] Basic Metabolic Profile (BMP )on 06-13-2024 BUN/CRE 29.9 RATIO High 10-20 [facility] Comment on above: Performed By: #### L 500.2500, L100.0100 #### [facility] [address] [place], [address] Calcium [Mass/Vol] 10.0 mg/dL Normal 7.6-11.0 [facility] Comment on above: Performed By: #### L 500.2500, L100.0100 #### [facility] [address] [place], [address] Chloride [Moles/Vol] 99 mmol/L Normal 98-108 [facility] Comment on above: Performed By: #### L 500.2500, L100.0100 #### [facility] [address] [place], [address] CO2 [Moles/Vol] 24.1 mmol/L Normal 21.0-32.0 [facility] Comment on above: Performed By: #### L 500.2500, L100.0100 #### [facility] [address] [place], [address] Creatinine [Mass/Vol] 0.87 mg/dL Normal 0.70-1.20 [facility] Comment on above: Performed By: #### L 500.2500, L100.0100 #### [facility] [address] [place], [address] ECRCL 40.91 ml/min Low 50-250 [facility] Comment on above: Performed By: #### L 500.2500, L100.0100 #### [facility] [address] [place], [address] GAP 13 Normal 5-15 [facility] Comment on above: Performed By: #### L 500.2500, L100.0100 #### [facility] [address] [place], [address] GFR/1.73 sq M.predicted among non-blacks MDRD (S/P/Bld) [Vol rate/Area] 64 mL/min/{1.73_m2} Normal >60 [facility] Comment on above: Result Comment: mL/m in/1.73m2 CKD-EPI Creatinine Equation (2020) Performed By: #### L 500.2500, L100.0100 #### [facility] [address] [place], [address] Glucose [Mass/Vol] 122 mg/dL High 70-99 [facility] Comment on above: Performed By: #### L 500.2500, L100.0100 #### [facility] [address] [place], [address] Potassium [Moles/Vol] 4.0 mmol/L Normal 3.3-5.1 [facility] Comment on above: Performed By: #### L 500.2500, L100.0100 #### [facility] [address] [place], [address] Sodium [Moles/Vol] 136 mmol/L Normal 133-145 [facility] Comment on above: Performed By: #### L 500.2500, L100.0100 #### [facility] [address] [place], [address] Urea nitrogen [Mass/Vol] 26 mg/dL High 4-19 [facility] Comment on above: Performed By: #### L 500.2500, L100.0100 #### [facility] [address] [place], [address] CBC W/Diff, Automatedon 03-0 5-2025 Absolute Lymph 1.86 X10 3/uL Normal 0.83-4.51 [facility] Comment on above: Performed By: #### L 500.2500, L100.0100 #### [facility] [address] [place], [address] Absolute Neut 12.9 X10 3/uL High 2.0-7.7 [facility] Comment on above: Performed By: #### L 500.2500, L100.0100 #### [facility] [address] [place], [address] Basophils/100 WBC (Bld) 0.5 % Normal 0-1 [facility] Comment on above: Performed By: #### L 500.2500, L100.0100 #### [facility] [address] [place], [address] Eosinophils/100 WBC (Bld) 0.6 % Normal 0-5 [facility] Comment on above: Performed By: #### L 500.2500, L100.0100 #### [facility] [address] [place], [address] Erythrocyte distribution width (RBC) [Ratio] 13.3 % Normal 11.6-14.6 [facility] Comment on above: Performed By: #### L 500.2500, L100.0100 #### [facility] [address] [place], [address] Hematocrit (Bld) [Volume fraction] 43.6 % Normal 37-47 [facility] Comment on above: Performed By: #### L 500.2500, L100.0100 #### [facility] [address] [place], [address] Hemoglobin (Bld) [Mass/Vol] 14.6 g/dL Normal 12.0-15.0 [facility] Comment on above: Performed By: #### L 500.2500, L100.0100 #### [facility] [address] [place], [address] IG% 0.500 Normal 0.0-0.9 [facility] Comment on above: Result Comment: IG% - Immature Granulocytes (promyelocytes, myelocytes and metamyelocytes) > 1% indicates that a LEFT SHIFT is Present. Performed By: #### L 500.2500, L100.0100 #### [facility] [address] [place], [address] Lymphocytes/100 WBC (Bld) 11.5 % Low 19-41 [facility] Comment on above: Performed By: #### L 500.2500, L100.0100 #### [facility] [address] [place], [address] MCH (RBC) [Entitic mass] 32.2 pg High 27.0-32.0 [facility] Comment on above: Performed By: #### L 500.2500, L100.0100 #### [facility] [address] [place], [address] MCHC (RBC) [Mass/Vol] 33.5 g/dL Normal 32-36 [facility] Comment on above: Performed By: #### L 500.2500, L100.0100 #### [facility] [address] [place], [address] MCV (RBC) [Entitic vol] 96.2 fL Normal 81-99 [facility] Comment on above: Performed By: #### L 500.2500, L100.0100 #### [facility] [address] [place], [address] Monocytes/100 WBC (Bld) 7.5 % Normal 0-10 [facility] Comment on above: Performed By: #### L 500.2500, L100.0100 #### [facility] [address] [place], [address] Neutrophils/100 WBC (Bld) 79.4 % High 47-70 [facility] Comment on above: Performed By: #### L 500.2500, L100.0100 #### [facility] [address] [place], [address] Nucleated RBC (Bld) [#/Vol] 0 10*3/uL Normal 0-5 [facility] Comment on above: Performed By: #### L 500.2500, L100.0100 #### [facility] [address] [place], [address] Platelet mean volume (Bld) [Entitic vol] 9.2 fL Normal 6.2-12.0 [facility] Comment on above: Performed By: #### L 500.2500, L100.0100 #### [facility] [address] [place], [address] Platelets (Bld) [#/Vol] 252 10*3/uL Normal 150-450 [facility] Comment on above: Performed By: #### L 500.2500, L100.0100 #### [facility] [address] [place], [address] RBC (Bld) [#/Vol] 4.53 10*6/uL Normal 4.2-5.4 [facility] Comment on above: Performed By: #### L 500.2500, L100.0100 #### [facility] [address] [place], [address] RDW SD 47.0 fl High 35.1-43.9 [facility] Comment on above: Performed By: #### L 500.2500, L100.0100 #### [facility] [address] [place], [address] WBC (Bld) [#/Vol] 16.2 10*3/uL High 4.4-11.0 [facility] Comment on above: Performed By: #### L 500.2500, L100.0100 #### [facility] [address] [place], [address] BNP,B-Type NATRIURETIC PEPTI Faiza 06-12-2024 Natriuretic peptide B (Bld) [Mass/Vol] 4739.0 pg/mL High 0-100 [facility] Comment on above: Order Comment: PROBN P RESULTS INCORRECTLY ENTERED INTO BNP TEST ORDER. Result Comment: PROB TAILER OUT RESULTS INCORRECTLY ENTERED INTO BNP TEST ORDER. Performed By: #### L 500.2500, L100.0100 #### [facility] [address] [place], [address] Basic Metabolic Profile (BMP )on 06-12-2024 BUN/CRE 24.6 RATIO High 10-20 [facility] Comment on above: Performed By: #### L 500.2500, L100.0100 #### [facility] [address] [place], [address] Calcium [Mass/Vol] 9.9 mg/dL Normal 7.6-11.0 [facility] Comment on above: Performed By: #### L 500.2500, L100.0100 #### [facility] [address] [place], [address] Chloride [Moles/Vol] 95 mmol/L Low 98-108 [facility] Comment on above: Performed By: #### L 500.2500, L100.0100 #### [facility] [address] [place], [address] CO2 [Moles/Vol] 25.4 mmol/L Normal 21.0-32.0 [facility] Comment on above: Performed By: #### L 500.2500, L100.0100 #### [facility] [address] [place], [address] Creatinine [Mass/Vol] 0.85 mg/dL Normal 0.70-1.20 [facility] Comment on above: Performed By: #### L 500.2500, L100.0100 #### [facility] [address] [place], [address] ECRCL 42.05 ml/min Low 50-250 [facility] Comment on above: Performed By: #### L 500.2500, L100.0100 #### [facility] [address] [place], [address] GAP 13 Normal 5-15 [facility] Comment on above: Performed By: #### L 500.2500, L100.0100 #### [facility] [address] [place], [address] GFR/1.73 sq M.predicted among non-blacks MDRD (S/P/Bld) [Vol rate/Area] 66 mL/min/{1.73_m2} Normal >60 [facility] Comment on above: Result Comment: mL/m in/1.73m2 CKD-EPI Creatinine Equation (2020) Performed By: #### L 500.2500, L100.0100 #### [facility] [address] [place], [address] Glucose [Mass/Vol] 132 mg/dL High 70-99 [facility] Comment on above: Performed By: #### L 500.2500, L100.0100 #### [facility] [address] [place], [address] Potassium [Moles/Vol] 3.4 mmol/L Normal 3.3-5.1 [facility] Comment on above: Performed By: #### L 500.2500, L100.0100 #### [facility] [address] [place], [address] Sodium [Moles/Vol] 134 mmol/L Normal 133-145 [facility] Comment on above: Performed By: #### L 500.2500, L100.0100 #### [facility] [address] [place], [address] Urea nitrogen [Mass/Vol] 21 mg/dL High 4-19 [facility] Comment on above: Performed By: #### L 500.2500, L100.0100 #### [facility] [address] [place], [address] CBC W/Diff, Automatedon 03-0 4-2024 Absolute Lymph 1.98 X10 3/uL Normal 0.83-4.51 [facility] Comment on above: Performed By: #### L 500.2500, L100.0100 #### [facility] [address] [place], [address] Absolute Neut 10.2 X10 3/uL High 2.0-7.7 [facility] Comment on above: Performed By: #### L 500.2500, L100.0100 #### [facility] [address] [place], [address] Basophils/100 WBC (Bld) 0.4 % Normal 0-1 [facility] Comment on above: Performed By: #### L 500.2500, L100.0100 #### [facility] [address] [place], [address] Eosinophils/100 WBC (Bld) 0.7 % Normal 0-5 [facility] Comment on above: Performed By: #### L 500.2500, L100.0100 #### [facility] [address] [place], [address] Erythrocyte distribution width (RBC) [Ratio] 13.2 % Normal 11.6-14.6 [facility] Comment on above: Performed By: #### L 500.2500, L100.0100 #### [facility] [address] [place], [address] Hematocrit (Bld) [Volume fraction] 43.8 % Normal 37-47 [facility] Comment on above: Performed By: #### L 500.2500, L100.0100 #### [facility] [address] [place], [address] Hemoglobin (Bld) [Mass/Vol] 14.7 g/dL Normal 12.0-15.0 [facility] Comment on above: Performed By: #### L 500.2500, L100.0100 #### [facility] [address] [place], [address] IG% 0.600 Normal 0.0-0.9 [facility] Comment on above: Result Comment: IG% - Immature Granulocytes (promyelocytes, myelocytes and metamyelocytes) > 1% indicates that a LEFT SHIFT is Present. Performed By: #### L 500.2500, L100.0100 #### [facility] [address] [place], [address] Lymphocytes/100 WBC (Bld) 14.7 % Low 19-41 [facility] Comment on above: Performed By: #### L 500.2500, L100.0100 #### [facility] [address] [place], [address] MCH (RBC) [Entitic mass] 32.5 pg High 27.0-32.0 [facility] Comment on above: Performed By: #### L 500.2500, L100.0100 #### [facility] [address] [place], [address] MCHC (RBC) [Mass/Vol] 33.6 g/dL Normal 32-36 [facility] Comment on above: Performed By: #### L 500.2500, L100.0100 #### [facility] [address] [place], [address] MCV (RBC) [Entitic vol] 96.7 fL Normal 81-99 [facility] Comment on above: Performed By: #### L 500.2500, L100.0100 #### [facility] [address] [place], [address] Monocytes/100 WBC (Bld) 8.1 % Normal 0-10 [facility] Comment on above: Performed By: #### L 500.2500, L100.0100 #### [facility] [address] [place], [address] Neutrophils/100 WBC (Bld) 75.5 % High 47-70 [facility] Comment on above: Performed By: #### L 500.2500, L100.0100 #### [facility] [address] [place], [address] Nucleated RBC (Bld) [#/Vol] 0 10*3/uL Normal 0-5 [facility] Comment on above: Performed By: #### L 500.2500, L100.0100 #### [facility] [address] [place], [address] Platelet mean volume (Bld) [Entitic vol] 9.2 fL Normal 6.2-12.0 [facility] Comment on above: Performed By: #### L 500.2500, L100.0100 #### [facility] [address] [place], [address] Platelets (Bld) [#/Vol] 264 10*3/uL Normal 150-450 [facility] Comment on above: Performed By: #### L 500.2500, L100.0100 #### [facility] [address] [place], [address] RBC (Bld) [#/Vol] 4.53 10*6/uL Normal 4.2-5.4 [facility] Comment on above: Performed By: #### L 500.2500, L100.0100 #### [facility] [address] [place], [address] RDW SD 47.0 fl High 35.1-43.9 [facility] Comment on above: Performed By: #### L 500.2500, L100.0100 #### [facility] [address] [place], [address] WBC (Bld) [#/Vol] 13.5 10*3/uL High 4.4-11.0 [facility] Comment on above: Performed By: #### L 500.2500, L100.0100 #### [facility] [address] [place], [address] Echo Completeon 06-12-2024 Echo Complete [facility] Services [address] [place] [address] Echo Complete 06/12/24 1013 MR#: [id number] Acct: [id number] Name: ESTEBAN WOODS Rep #: [id number] : 1935 88 From: Demetrius Terrell MD Attending Dr: Dr. Junaid Travis MD Status : ADM IN Ordering Dr: Junaid Travis MD Date: 06/12/24 Location: ICU Sex: F C Admitted: 06/11/24 Reason For Study Reason For Study: ATRIAL FIB-FLUTTER Procedure This was a 2D Doppler, Color Flow transthoracic echocardiogram. Exam performed portable in ICU/CCU. Left Ventricle Normal LV size. Mild concentric left ventricular hypertrophy. Mild to moderate LV systolic dysfunction. Estimated LVEF 40%. Diastolic function indeterminate. Right Ventricle Normal RV size. Mild to moderate global right ventricular systolic dysfunction. Atria There is severe biatrial dilatation. Mitral Valve Severe posterior mitral annular calcification. Moderate to severe mitral valve regurgitation. Tricuspid Valve Moderate to severe tricuspid valve regurgitation. Right ventricular systolic pressure estimated at 75 mmHg. Aortic Valve Aortic sclerosis, no stenosis. Mild (1+) aortic valve insufficiency. Pulmonic Valve The pulmonic valve is not well visualized. Trivial pulmonic valve insufficiency. Great Vessels Normal sized aortic root. Pericardium/Pleural No pericardial effusion. MMode/2D Measurements Calculations LVIDd: 4.0 cm IVSd: 1.2 cm Ao root diam: 3.2 cm LVIDs: 3.0 cm LVPWd: 1.4 cm RVDd: 3.5 cm FS: 25.6 % LAV(MOD-bp): 135.3 ml LVAd ap4: 17.6 cm2 SV(MOD-sp4): 18.1 ml LAV(MOD-bp) Indexed: 78.9 ml/m2 LVLd ap4: 5.7 cm SI(MOD-sp4): 10.5 ml/m2 LAV(MOD-sp2): 130.5 ml EDV(MOD-sp4): 45.1 ml LAV(MOD-sp4): 130.7 ml EDV(sp4-el): 46.3 ml LVAs ap4: 12.7 cm2 LVLs ap4: 5.2 cm ESV(MOD-sp4): 27.0 ml ESV(sp4-el): 26.1 ml EF(MOD-sp4): 40.1 % EF(sp4-el): 43.6 % SV(sp4-el): 20.2 ml LA A4 area: 35.3 cm2 LA dimension(2D): 5.5 cm RA A4 area: 27.7 cm2 TAPSE: 1.6 cm Doppler Measurements Calculations MV E max vilma: 87.7 cm/sec Ao V2 max: 140.3 cm/sec AI max vilma: 402.3 cm/sec Ao max P.9 mmHg AI max P.8 mmHg AI dec slope: 218.6 cm/sec2 AI P1/2t: 539.2 msec LV V1 max: 59.7 cm/sec PA V2 max: 58.3 cm/sec TR max vilma: 388.1 cm/sec LV V1 max P.4 mmHg TR max P.2 mmHg ECHO/Echo Complete Interpretation Summary Mild concentric left ventricular hypertrophy. Mild to moderate LV systolic dysfunction. Estimated LVEF 40%. Diastolic function indeterminate. Mild to moderate global right ventricular systolic dysfunction. There is severe biatrial dilatation. Severe posterior mitral annular calcification. Moderate to severe mitral valve regurgitation. Moderate to severe tricuspid valve regurgitation. Right ventricular systolic pressure estimated at 75 mmHg. Mild (1+) aortic valve insufficiency. Ordering Physician: Junaid Travis Referring Physician: KODAK HARDING Performed By: Gloria Claudio RDCS 06/12/24 1323 Date Demetrius Terrell MD CC: Dr. Junaid Travis MD; Dr. Mio Benitez MD; Dr. Kodak Harding MD Date Dictated: 06/12/24 1013 Date Transcribed: 06/12/24 1323 Stake Driver: Signed Normal [facility] Echocardiogram study reportO rdered By: Demetrius Terrell on 06-12-2024 Study report [facility] Services [address] [facility] [place] [address] Echo Complete 06/12/24 1013 MR#: [id number] Acct: [id number] Name: ESTEBAN WOODS Rep #:[id number] : 1935 88 From: Demetrius Terrell MD Attending Dr: Dr. Junaid Travis MD Status: ADM IN Ordering Dr: Junaid Travis MD Da te: 06/12/24 Location: ICU Sex: F C Admitted: 06/11/24 Reason For Study Reason For Study: ATRIAL FIB-FLUTTER Procedure This was a 2D Doppler, Color Flow transthoracic echocardiogram. Exam performed portable in ICU/CCU. Left Ventricle Normal LV size. Mild concentric left ventricular hypertrophy. Mild to moderate LV systolic dysfunction. Estimated LVEF 40%. Diastolic function indeterminate. Right Ventricle Normal RV size. Mild to moderate global right ventricular systolic dysfunction. Atria There is severe biatrial dilatation. Mitral Valve Severe posterior mitral annular calcification. Moderate to severe mitral valve regurgitation. Tricuspid Valve Moderate to severe tricuspid valve regurgitation. Right ventricular systolic pressure estimated at 75 mmHg. Aortic Valve Aortic sclerosis, no stenosis. Mild (1+) aortic valve insufficiency. Pulmonic Valve The pulmonic valve is not well visualized. Trivial pulmonic valve insufficiency. Great Vessels Normal sized aortic root. Pericardium/Pleural No pericardial effusion. MMode/2D Measurements & Calculations LVIDd: 4.0 cm IVSd: 1.2 cm Ao root diam: 3.2 cm LVIDs: 3.0 cm LVPWd: 1.4 cm RVDd: 3.5 cm FS: 25.6 % ____ LAV(MOD-bp): 135.3 ml LVAd ap4: 17.6 cm2 SV(MOD-sp4): 18.1 ml LAV(MOD-bp) Indexed: 78.9 ml/m2 LVLd ap4: 5.7 cm SI(MOD-sp4): 10.5 ml/m2 LAV(MOD-sp2): 130.5 ml EDV(MOD-sp4): 45.1 ml LAV(MOD-sp4): 130.7 ml EDV(sp4-el): 46.3 ml LVAs ap4: 12.7 cm2 LVLs ap4: 5.2 cm ESV(MOD-sp4): 27.0 ml ESV(sp4-el): 26.1 ml EF(MOD-sp4): 40.1 % EF(sp4-el): 43.6 % SV(sp4-el): 20.2 ml LA A4 area: 35.3 cm2 LA dimension(2D): 5.5 cm RA A4 area: 27.7 cm2 TAPSE: 1.6 cm Doppler Measurements & Calculations MV E max vilma: 87.7 cm/sec Ao V2 max: 140.3 cm/sec AI max vilma: 402.3 cm/sec Ao max P.9 mmHg AI max P.8 mmHg AI dec slope: 218.6 cm/sec2 AI P1/2t: 539.2 msec LV V1 max: 59.7 cm/sec PA V2 max: 58.3 cm/sec TR max vilma: 388.1 cm/sec LV V1 max P.4 mmHg TR max P.2 mmHg ECHO/Echo Complete Interpretation Summary Mild concentric left ventricular hypertrophy. Mild to moderate LV systolic dysfunction. Estimated LVEF 40%. Diastolic functionindeterminat e. Mild to moderate global right ventricular systolic dysfunction. There is severe biatrial dilatation. Severe posterior mitral annular calcification. Moderate to severe mitral valve regurgitation. Moderate to severe tricuspid valve regurgitation. Right ventricular systolic pressure estimated at 75 mmHg. Mild (1+) aortic valve insufficiency. Ordering Physician: Junaid Travis Referring Physician: KODAK HARDING Performed By: Gloria Claudio RDCS 06/12/24 1323 Date _ Demetrius Terrell MD CC: Dr. Junaid Travis MD; Dr. Mio Benitez MD; Dr. Kodak Harding MD ~ Date Dictated: 06/12/24 1013 Date Transcribed: 06/12/24 1323 Stake Driver: Signed [facility] Work Phone: Electrocardiogram reportOrde red By: Benjamín Hendrix on 06-12-2024 EKG study [facility] Cardi[facility] Services [address] [place] [address] 12 Lead EKG 06/11/24 1909 MR#: [id number] Acct: [id number] Name: ESTEBAN WOODS Rep #:[id number] : 1935 88 From: Benjamín oquendo MD Attending Dr: Dr. Junaid Travis MD Status: ADM IN Ordering Dr: Bob Liu DO Date: 0 06/11/24 Location: ICU Sex: F C Admitted: 06/11/24 Test Reason : DYSRHYTHMIA Blood Pressure : */* mmHG Vent. Rate : 131 BPM Atrial Rate : 267 BPM P-R Int : * ms QRS Dur : 90 ms QT Int : 348 ms P-R-T Axes : * -17 41 degrees QTcB Int : 513 ms Atrial flutter with variable A-V block Low voltage QRS Abnormal ECG Confirmed by Benjamín Hendrix ([id number]), rewrite editor ANSON COHEN ([id number]) on 06/12/2024 10:44:57 AM Referred By: Mio Benitez Confirmed By: Benjamín Hendrix 06/12/24 1044 Date _ Benjamín Hendrix MD CC: Dr. Junaid Travis MD; Dr. Mio Benitez MD; Dr. Kodak Harding MD; Dr. Bob Liu DO ~ Signed [facility] Other Phone: TSH DL <= 0.005 mIU/L QnOrde red By: Junaid Travis on 06-12-2024 Thyroid Stimulating Hormone (TSH) 3.320 uIU/mL 0.300-4.200 [facility] Thyroid Stim Hormone (TSH)on 06-12-2024 TSH 3.320 uIU/mL Normal 0.300-4.200 [facility] Comment on above: Performed By: #### L 500.2500, L100.0100 #### [facility] [address] [place], [address] 12 Lead EKGon 06-11-2024 12 Lead EKG [facility] Cardiovascular Services [address] [place] [address] 12 Lead EKG 06/11/24 1909 MR#: [id number] Acct: [id number] Name: ESTEBAN WOODS Rep #: [id number] : 1935 88 From: Benjamín Hendrix MD Attending Dr: Dr. Junaid Travis MD Status : ADM IN Ordering Dr: Bob Liu DO Date: 06/11/24 Location: ICU Sex: F C Admitted: 06/11/24 Test Reason : DYSRHYTHMIA Blood Pressure : */* mmHG Vent. Rate : 131 BPM Atrial Rate : 267 BPM P-R Int : * ms QRS Dur : 90 ms QT Int : 348 ms P-R-T Axes : * -17 41 degrees QTcB Int : 513 ms Atrial flutter with variable A-V block Low voltage QRS Abnormal ECG Confirmed by Benjamín Hendrix ([id number]), rewrite editor ANSON COHEN ([id number]) on 06/12/2024 10:44:57 AM Referred By: Mio Benitez Confirmed By: Benjamín Hendrix 06/12/24 1044 Date Benjamín Hendrix MD CC: Dr. Junaid Travis MD; Dr. Mio Benitez MD; Dr. Kodak Harding MD; Dr. Bob Liu DO Signed Normal [facility] Amorphous sediment detection in urine sediment by light microscopyOrdered By: Bob Liu on 06-11-2024 Amorphous sediment LM Ql (Urine sed) 1+ [facility] BNP (brain natriuretic pepti de measurement)Ordered By: Bob Liu on 06-11-2024 Natriuretic peptide B (Bld) [Mass/Vol] 4739.0 pg/mL High 0-100 [facility] Bilirubin Test strip Ql (U)O rdered By: Bob Liu on 06-11-2024 Bilirubin Ql (U) Negative Negative [facility] Brain/Head without Contrasto n 06-11-2024 Brain/Head without Contrast [facility] Imaging Services [address] [place], [place] [address] Brain/Head without Contrast MR#: [id number] Acct: [id number] Name: ESTEBAN WOODS Rep #: [id number] : 1935 F 88 From: Mio Blackwood MD PCP: Dr. Kodak Harding MD Status: PRE ER Study: Brain/Head without Contrast Date of Exam: 07/03 Exam# [id number] Ordering Dr: Bob Liu DO EXAM: BRAIN/HEAD WITHOUT CONTRAST CLINICAL HISTORY: Confusion COMPARISON: None. TECHNIQUE: Noncontrast images of the head with multiplanar reconstructions. Dose reduction techniques were used including intermediate exposure control (AEC),iterative reconstruction technique, and/or mA and/or KV dose adjustments based on patient's size. FINDINGS: CT HEAD FINDINGS: No acute intracranial hemorrhage, mass, mass effect, midline shift or pathologic extra-axial fluid collection. Nonspecific periventricular white matter changes are noted No hydrocephalus. Age- appropriate cerebral volume and white matter. Visualized paranasal sinuses and mastoid air cells are clear. The calvarium is grossly intact. Round calcific mass in the left parietal convexity measuring 9 x [address]/Brain/Head without Contrast IMPRESSION: 1. No acute intracranial abnormality. 2. Age-appropriate volume loss and remote small vessel ischemic changes 3. Left parietal meningioma Reading Location: [facility] CC: Dr. Kodak Harding MD; Dr. Bob Noe, DO Stake Driver: Signed Normal [facility] CBC W/Diff, Automatedon 03-0 -2024 Absolute Lymph 3.12 X10 3/uL Normal 0.83-4.51 [facility] Comment on above: Performed By: #### L 501.2450, L500.4050, L503.6005, L100.0100 #### [facility] [address] [place], [address] Absolute Neut 10.2 X10 3/uL High 2.0-7.7 [facility] Comment on above: Performed By: #### L 501.2450, L500.4050, L503.6005, L100.0100 #### [facility] [address] [place], [address] Basophils/100 WBC (Bld) 0.6 % Normal 0-1 [facility] Comment on above: Performed By: #### L 501.2450, L500.4050, L503.6005, L100.0100 #### [facility] [address] [place], [address] Eosinophils/100 WBC (Bld) 0.8 % Normal 0-5 [facility] Comment on above: Performed By: #### L 501.2450, L500.4050, L503.6005, L100.0100 #### [facility] [address] [place], [address] Erythrocyte distribution width (RBC) [Ratio] 13.2 % Normal 11.6-14.6 [facility] Comment on above: Performed By: #### L 501.2450, L500.4050, L503.6005, L100.0100 #### [facility] [address] [place], [address] Hematocrit (Bld) [Volume fraction] 45.0 % Normal 37-47 [facility] Comment on above: Performed By: #### L 501.2450, L500.4050, L503.6005, L100.0100 #### [facility] [address] [place], [address] Hemoglobin (Bld) [Mass/Vol] 14.9 g/dL Normal 12.0-15.0 [facility] Comment on above: Performed By: #### L 501.2450, L500.4050, L503.6005, L100.0100 #### [facility] [address] [place], [address] IG% 0.500 Normal 0.0-0.9 [facility] Comment on above: Result Comment: IG% - Immature Granulocytes (promyelocytes, myelocytes and metamyelocytes) > 1% indicates that a LEFT SHIFT is Present. Performed By: #### L 501.2450, L500.4050, L503.6005, L100.0100 #### [facility] [address] [place], [address] Lymphocytes/100 WBC (Bld) 21.4 % Normal 19-41 [facility] Comment on above: Performed By: #### L 501.2450, L500.4050, L503.6005, L100.0100 #### [facility] [address] [place], [address] MCH (RBC) [Entitic mass] 32.5 pg High 27.0-32.0 [facility] Comment on above: Performed By: #### L 501.2450, L500.4050, L503.6005, L100.0100 #### [facility] [address] [place], [address] MCHC (RBC) [Mass/Vol] 33.1 g/dL Normal 32-36 [facility] Comment on above: Performed By: #### L 501.2450, L500.4050, L503.6005, L100.0100 #### [facility] [address] [place], [address] MCV (RBC) [Entitic vol] 98.0 fL Normal 81-99 [facility] Comment on above: Performed By: #### L 501.2450, L500.4050, L503.6005, L100.0100 #### [facility] [address] [place], [address] Monocytes/100 WBC (Bld) 7.0 % Normal 0-10 [facility] Comment on above: Performed By: #### L 501.2450, L500.4050, L503.6005, L100.0100 #### [facility] [address] [place], [address] Neutrophils/100 WBC (Bld) 69.7 % Normal 47-70 [facility] Comment on above: Performed By: #### L 501.2450, L500.4050, L503.6005, L100.0100 #### [facility] [address] [place], [address] Nucleated RBC (Bld) [#/Vol] 0 10*3/uL Normal 0-5 [facility] Comment on above: Performed By: #### L 501.2450, L500.4050, L503.6005, L100.0100 #### [facility] [address] [place], [address] Platelet mean volume (Bld) [Entitic vol] 9.4 fL Normal 6.2-12.0 [facility] Comment on above: Performed By: #### L 501.2450, L500.4050, L503.6005, L100.0100 #### [facility] [address] [place], [address] Platelets (Bld) [#/Vol] 262 10*3/uL Normal 150-450 [facility] Comment on above: Performed By: #### L 501.2450, L500.4050, L503.6005, L100.0100 #### [facility] [address] [place], [address] RBC (Bld) [#/Vol] 4.59 10*6/uL Normal 4.2-5.4 [facility] Comment on above: Performed By: #### L 501.2450, L500.4050, L503.6005, L100.0100 #### [facility] [address] [place], [address] RDW SD 47.4 fl High 35.1-43.9 [facility] Comment on above: Performed By: #### L 501.2450, L500.4050, L503.6005, L100.0100 #### [facility] [address] [place], [address] WBC (Bld) [#/Vol] 14.6 10*3/uL High 4.4-11.0 [facility] Comment on above: Performed By: #### L 501.2450, L500.4050, L503.6005, L100.0100 #### [facility] [address] [place], [address] Chest 1 View (Portable)on Chest 1 View (Portable) [facility] Imaging Services [address] [place] [address] Chest 1 View (Portable) MR#: [id number] Acct: [id number] Name: ESTEBAN WOODS Rep #: [id number] : 1935 F 88 From: Mio Blackwood MD PCP: Dr. Kodak Harding MD Status: PRE ER Study: Chest 1 View (Portable) Date of Exam: 06/11/24 Exam# [id number] Ordering Dr: Bob Liu DO PROCEDURE: CHEST 1 VIEW (PORTABLE) REASON FOR EXAM: Confusion TECHNIQUE: Frontal and lateral views of the chest. COMPARISON: None. FINDINGS: Heart size is moderately enlarged. There are atherosclerotic calcifications of the thoracic aorta. There are chronic-appearing changes of both lungs. Degenerative changes are identified within the thoracic spine. RAD/Chest 1 View (Portable) IMPRESSION: 1. Cardiomegaly with mild pulmonary vascular congestion 2. 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 Reading Location: [facility] CC: Dr. Kodak Harding MD; Dr. Bob Liu DO Stake Driver: Signed Normal [facility] Comprehensive Metabolic Prof ilon 06-11-2024 Albumin [Mass/Vol] 3.8 g/dL Normal 3.4-4.8 [facility] Comment on above: Performed By: #### L 501.2450, L500.4050, L503.6005, L100.0100 #### [facility] [address] [place], [address] Albumin/Globulin [Mass ratio] 0.9 {ratio} Normal 0.9-2.4 [facility] Comment on above: Performed By: #### L 501.2450, L500.4050, L503.6005, L100.0100 #### [facility] [address] [place], [address] ALK PHOS 80 U/L Normal 35-104 [facility] Comment on above: Performed By: #### L 501.2450, L500.4050, L503.6005, L100.0100 #### [facility] [address] [place], [address] ALT [Catalytic activity/Vol] 18 U/L Normal <=34 [facility] Comment on above: Performed By: #### L 501.2450, L500.4050, L503.6005, L100.0100 #### [facility] [address] [place], [address] AST [Catalytic activity/Vol] 39 U/L High <=31 [facility] Comment on above: Performed By: #### L 501.2450, L500.4050, L503.6005, L100.0100 #### [facility] [address] [place], [address] Bilirubin [Mass/Vol] 1.53 mg/dL High 0.00-1.30 [facility] Comment on above: Performed By: #### L 501.2450, L500.4050, L503.6005, L100.0100 #### [facility] [address] [place], [address] BUN/CRE 22.6 RATIO High 10-20 [facility] Comment on above: Performed By: #### L 501.2450, L500.4050, L503.6005, L100.0100 #### [facility] [address] [place], [address] Calcium [Mass/Vol] 10.3 mg/dL Normal 7.6-11.0 [facility] Comment on above: Performed By: #### L 501.2450, L500.4050, L503.6005, L100.0100 #### [facility] [address] [place], [address] Chloride [Moles/Vol] 95 mmol/L Low 98-108 [facility] Comment on above: Performed By: #### L 501.2450, L500.4050, L503.6005, L100.0100 #### [facility] [address] [place], [address] CO2 [Moles/Vol] 22.6 mmol/L Normal 21.0-32.0 [facility] Comment on above: Performed By: #### L 501.2450, L500.4050, L503.6005, L100.0100 #### [facility] [address] [place], [address] Creatinine [Mass/Vol] 1.00 mg/dL Normal 0.70-1.20 [facility] Comment on above: Performed By: #### L 501.2450, L500.4050, L503.6005, L100.0100 #### [facility] [address] [place], [address] GAP 15 Normal 5-15 [facility] Comment on above: Performed By: #### L 501.2450, L500.4050, L503.6005, L100.0100 #### [facility] [address] [place], [address] GFR/1.73 sq M.predicted among non-blacks MDRD (S/P/Bld) [Vol rate/Area] 54 mL/min/{1.73_m2} Low >60 [facility] Comment on above: Result Comment: mL/m in/1.73m2 CKD-EPI Creatinine Equation (2020) Performed By: #### L 501.2450, L500.4050, L503.6005, L100.0100 #### [facility] [address] [place], [address] Globulin (S) [Mass/Vol] 4.4 g/dL High 2.2-4.2 [facility] Comment on above: Performed By: #### L 501.2450, L500.4050, L503.6005, L100.0100 #### [facility] [address] [place], [address] Glucose [Mass/Vol] 113 mg/dL High 70-99 [facility] Comment on above: Performed By: #### L 501.2450, L500.4050, L503.6005, L100.0100 #### [facility] [address] [place], [address] Potassium [Moles/Vol] 3.9 mmol/L Normal 3.3-5.1 [facility] Comment on above: Performed By: #### L 501.2450, L500.4050, L503.6005, L100.0100 #### [facility] [address] [place], [address] Sodium [Moles/Vol] 133 mmol/L Normal 133-145 [facility] Comment on above: Performed By: #### L 501.2450, L500.4050, L503.6005, L100.0100 #### [facility] [address] [place], [address] T PROT 8.2 g/dL Normal 5.9-8.4 [facility] Comment on above: Performed By: #### L 501.2450, L500.4050, L503.6005, L100.0100 #### [facility] [address] [place], [address] Urea nitrogen [Mass/Vol] 23 mg/dL High 4-19 [facility] Comment on above: Performed By: #### L 501.2450, L500.4050, L503.6005, L100.0100 #### [facility] [address] [place], [address] Emergency Department Summary on 06-11-2024 Emergency Department Summary [facility] Medical Records Department [address] [place] [address] Emergency Department Summary 06/11/24 MR#: [id number] Acct: [id number] Name: ESTEBAN WOODS Rep #: [id number] : 1935 88 From: Bob Liu DO PCP: Dr. Kodak Harding MD Status:ADM IN Location: ICU ICU05-1 HPI History of Present Illness Chief Complaint: Neuro S/Sx PFSH [facility] Medical History (Updated 06/11/24 @ 22:[address] Mio Benitez MD) Hypertension Home Medications ???Medication ???Instructions ???Recorded ???Last Taken ???Type Unobtainable 06/11/24 Unknown History Allergy/AdvReac Type Severity Reaction Status Date / Time No Known Allergies Allergy Verified 06/11/24 20:12 Family History unable to obtain Surgical History unable to obtain Social History Smoking Status: Never smoker EXAM Physical Exam Const Vital Signs: 06/11/24 17:54 06/11/24 19:31 06/11/24 20:15 Temperature 98.6 F Temperature Source Temporal Pulse Rate 120 H 112 H 112 H Respiratory Rate 16 24 H 20 H Blood Pressure 175/130 H 171/111 H 174/106 H Blood Pressure Mean 145 131 128 Pulse Ox 93 94 95 Oxygen Delivery Method Room Air Nasal Cannula Nasal Cannula Oxygen Flow Rate (L/min) 2 2 06/11/24 20:45 06/11/24 21:12 06/11/24 22:00 Temperature 97.7 F L 97.8 F Temperature Source Oral Oral Pulse Rate 118 H 110 H 111 H Respiratory Rate 30 H 18 20 H Blood Pressure 161/115 H 167/127 H 181/121 H Blood Pressure Mean 130 140 141 Pulse Ox 93 94 98 Oxygen Delivery Method Nasal Cannula Nasal Cannula Oxygen Flow Rate (L/min) 2 2 [facility] MDM Narrative Medical decision making narrative: HISTORY OF PRESENT ILLNESS: 88-year-old female presents concern for expressive aphasia. Son notes last time she was noted to be normal was at approximately 10 AM on 06/10/2024. The majority history is provided by the patient's son if she is confused. Today around noon she showed up at her her son's house and was having trouble finding her words. Notes confusion, saying non-sensical words. NO falls. no fever, no vomiting. REVIEW OF SYSTEMS: Pertinent positives: Word finding difficulty, confusion ROS are not reliable 2/2 to mental status changes. PHYSICAL EXAM: Nursing triage notes reviewed, Vital signs reviewed Constitutional: please see mdm HENT: MMM Eyes: Pupils equal round and reactive to light, Extraocular muscles intact Neck: No stridor, no JVD, full neck ROM Lungs: Clear to auscultation, No wheezing or rales. No increased work of breathing, no conversational dyspnea, no accessory muscle use, no nasal flaring. No respiratory distress noted Heart: Regular rate and rhythm, No murmurs, No rubs and No gallops, 2+ distal pulses (radial, femoral, posterior tibial) in all extremities Abdomen: Soft, there is no tenderness, rigidity, rebound or guarding, no obvious peritoneal signs, no palpable pulsatile abdominal masses, no auscultated abdominal bruit : No CVAT Extremities: No edema Neuro: Alert, oriented to person and place but not time. (Per son baseline is alert and orient x 3), moves all 4 extremities, has normal speech. No obvious cranial nerve deficits. No obvious sensory or strength deficits. No issues with extremity or truncal ataxia. NIH of 0 Skin: No rash or lesions noted MEDICAL DECISION MAKING: Chief Complaint: Speech difficulty External records reviewed: Reviewed prior imaging studies. Reviewed echocardiogram from 2016 which showed ejection fraction of 55% Factors affecting care: none reported Social determinants of health: elderly History obtained from others: The patient's son Consults: Neurosurgery at [facility] Emergency is Dr. Donaldson, Internal Medicine (Dr. Crum) MDM Narrative: The patient was initially hypertensive with a blood pressure 175/130, tachycardic with a heart rate of 120. Exam without focal neurologic deficits. The patient. Diffuse encephalopathic I considered the following differential diagnosis: ICH, infectious or metabolic encephalopathy, ACS, arrhythmia, anemia, electrolyte disturbance I obtained a broad lab and imaging workup to further elucidate etiology of patient's complaints. Patient was initially resuscitated from cc bolus ALL IMAGES (IF OBTAINED) HAVE BEEN PERSONALLY REVIEWED AND INTERPRETED BY MYSELF. EKG with normal axis, normal's, A-fib with RVR, no STEMI Initial troponin elevated, delta troponin continues to be elevated. This is likely a result of demand ischemia from A-fib with RVR, CHF and urosepsis. Chest x-ray shows evidence of pulmonary vascular congestion CT scan of the head is negative for ICH, there is noted meningioma CBC with leukocytosis suggestive recent abrasion, no anemia or thrombocytopenia BMP without significant (more content not included)... Normal [facility] Epithelial cells.squamous LM Ql (Urine sed)Ordered By: Bob Liu on 06-11-2024 Epithelial cells.squamous LM.HPF (Urine sed) [#/Area] 0 /[HPF] 5-10 [facility] Glucose Ql (U)Ordered By: Alexandria Liu on 06-11-2024 Urine Glucose (UA) Normal mg/dl Normal [facility] Ketones Test strip Ql (U)Ord ered By: Bob Liu on 06-11-2024 Ketones Ql (U) Negative Negative [facility] L499.0042on 06-11-2024 Trop T Delta 5 Normal [facility] Comment on above: Result Comment: Donnae ntial recent TX,CKD,LVH* Consider a third Troponin for Suspected ACS If clinical suspicion for ACS is high, suggest getting a third troponin. Otherwise, stress test or CTCA. Performed By: #### L 500.2500, L100.0100 #### [facility] [address] [place], [address] Trop T High Sen 59 ng/L Invalid Interpretation Code <=14 [facility] Comment on above: Result Comment: Crit ical Result(s) Called at: by ANA DECKER??Results read back by same. Performed By: #### L 500.2500, L100.0100 #### [facility] [address] [place], [address] L499.0043on 06-11-2024 Trop T Delta 3 Normal [facility] Comment on above: Result Comment: Down stream testing and, if negative, consider other etiologies for elevated troponin. Performed By: #### L 499.0043 #### [facility] [address] [place], [address] Trop T High Sen 61 ng/L Invalid Interpretation Code <=14 [facility] Comment on above: Result Comment: Crit ical Result(s) Called at:2339 by: LAMAR ALCANTAR??Results read back by same. Performed By: #### L 499.0043 #### [facility] [address] [place], [address] L501.4021on 06-11-2024 Trop T High Sen 64 ng/L Invalid Interpretation Code <=14 [facility] Comment on above: Result Comment: Crit ical Result(s) Called at: by ANA CERVANTES (ED)??Results read back by same. Performed By: #### L 500.2500, L100.0100 #### [facility] [address] [place], [address] Lactic Acidon 06-11-2024 Lactate [Moles/Vol] 3.1 mmol/L Invalid Interpretation Code 0.0-2.0 [facility] Comment on above: Order Comment: Y Result Comment: Crit ical Result(s) Called at: by ANA BARTON TO DANICA (ED)??Results read back by same. Performed By: #### L 501.2450, L500.4050, L503.6005, L100.0100 #### [facility] [address] [place], [place], [address] Lactic acid measurementOrder ed By: Bob Liu on 06-11-2024 Lactate [Moles/Vol] 3.1 mmol/L High 0.0-2.0 [facility] Comment on above: Critical Result(s) C alled at: by ANA MISHRA (ED) Results read back by same. Lipaseon 06-11-2024 Lipase [Catalytic activity/Vol] 20 U/L Normal 13-75 [facility] Comment on above: Result Comment: Plea note: LIPASE revised reference range effective 22. New Lipase methodology. Expected to produce lower values than the previous assay method. NEW Reference Range: 13 - 75 U/L Performed By: #### L 501.2450, L500.4050, L503.6005, L100.0100 #### [facility] [address] [place], [address] Lipase measurementOrdered By : Bob Liu on 06-11-2024 Lipase [Catalytic activity/Vol] 20 U/L 13-75 [facility] Comment on above: Please note:LIPASE r evised reference range effective 22. New Lipase methodology. Expected to produce lower values than the previous assay method. NEW Reference Range: 13 - 75 U/L Microscopic analysis of urin e for red blood cells (RBC)Ordered By: Bob Liu on 06-11-2024 Urine RBC 0 SEEN /hpf 0-5 [facility] Mucus LM Ql (Urine sed)Order ed By: Bob Liu on 06-11-2024 Mucus Ql (Urine sed) 0 SEEN /hpf [facility] Nitrite Test strip Ql (U)Ord ered By: Bob Liu on 06-11-2024 Nitrite Ql (U) Negative Negative [facility] No Panel InformationOrdered By: Bob Liu on 06-11-2024 Troponin T Hi Sensitivity 4Hr Delta 3 [facility] Comment on above: Downstream testing a nd, if negative, consider other etiologies for elevated troponin. Troponin T Hi Sensitivity 2Hr Delta 5 [facility] Comment on above: Potential recent TX, CKD,LVH* Consider a third Troponin for Suspected ACSIf clinical suspicion for ACS is high, suggest getting a third troponin. Otherwise, stress test or CTCA. Troponin T High Sensitivity 64 ng/L High <14 [facility] Comment on above: Critical Result(s) C alled at: by ANA CERVANTES (ED) Results read back by same. Protein Test strip Ql (U)Ord ered By: Bob Liu on 06-11-2024 Protein Ql (U) 100 mg/dl High Negative [facility] Troponin T.cardiac High sens itivity method [Mass/Vol]Ordered By: Bob Liu on 06-11-2024 Troponin T High Sensitivity 4 Hour 61 ng/L High <14 [facility] Comment on above: Critical Result(s) C alled at:2339 by: LAMAR ALCANTAR Results read back by same. Troponin T High Sensitivity 2 Hour 59 ng/L High <14 [facility] Comment on above: Critical Result(s) C alled at: by ANA DECKER Results read back by same. Urinalysis, Completeon 06-11 AMORPHOUS 1+ Normal [facility] Comment on above: Order Comment: CLEAN CATCH Performed By: #### L 400.0001 #### [facility] [address] [place], [address] BACTERIA 4+ /hpf Normal None Seen [facility] Comment on above: Order Comment: CLEAN CATCH Performed By: #### L 400.0001 #### [facility] [address] [place], [address] RBC 0 SEEN Normal 0-5 [facility] Comment on above: Order Comment: CLEAN CATCH Performed By: #### L 400.0001 #### [facility] [address] [place], [address] WBC 0-5 SEEN Normal 0-5 [facility] Comment on above: Order Comment: CLEAN CATCH Performed By: #### L 400.0001 #### [facility] [address] [place], [address] EPI,SQUAMOUS 0 SEEN Normal 5-10 [facility] Comment on above: Order Comment: CLEAN CATCH Performed By: #### L 400.0001 #### [facility] [address] [place], [address] Mucus Ql (Urine sed) 0 SEEN Normal [facility] Comment on above: Order Comment: CLEAN CATCH Performed By: #### L 400.0001 #### [facility] [address] [place], [address] Urine blood detectionOrdered By: Bob Liu on 06-11-2024 Urine Occult Blood 25 /ul High Negative [facility] Urine clarityOrdered By: Candy Liu on 06-11-2024 Clarity (U) Cloudy Clear [facility] Urine color determinationOrd ered By: Bob Liu on 06-11-2024 Color (U) Yellow Yellow [facility] Urine cultureOrdered By: Candy Liu on 06-11-2024 Bacteria identified Cx Nom (U) Presumptive E. coli Abnormal [facility] Bacteria identified Cx Nom (U) Aerococcus sanguinicola Abnormal [facility] Urine leukocyte esterase det ection by dipstickOrdered By: Bob Liu on 06-11-2024 Leukocyte esterase Test strip Ql (U) 25 /ul High Negative [facility] Urine pHOrdered By: Bob radford on 06-11-2024 pH (U) 6.5 [pH] 5.0 - 8.0 [facility] Urine sediment bacteria coun t by microscopy (number/high power field)Ordered By: Bob Liu on 06-11-2024 Bacteria LM.HPF (Urine sed) [#/Area] 4 /[HPF] None Seen [facility] Urine specific gravity measu rementOrdered By: Bob Liu on 06-11-2024 Specific gravity (U) [Rel density] 1.015 1.002-1.030 [facility] Urobilinogen Ql (U)Ordered B y: Bob Liu on 06-11-2024 Urobilinogen (U) [Mass/Vol] 8 mg/dL High Normal [facility] White blood cell countOrdere d By: Bob Liu on 06-11-2024 Urine WBC 0-5 SEEN /hpf 0-5 [facility] CNOVon 03-19-2024 CNOV Office Visit (FAMMAS) ESTEBAN WOODS ([id number]) 1935 F T Date Time Provider Department 03/19/24 1:50 PM KODAK HARDING During your visit today, we recorded the [...] Lester LPN March 19, 2024 1:52 PM Kodak Harding MD 03/19/2024 2:35 PM Signed Subjective Esteban Lucio Peggy is a 88 year old female.The patient [...] Negative. Genitourinary: Negative. Musculoskeletal: Negative. Skin: Negative. Allergic/Immunologic : Negative. Neurological: Negative. Hematological: Negative. Psychiatric/Behavior al: Negative. History reviewed. No pertinent surgical history. [...] Take 81 mg by mouth once daily. dx-zz-NP-vit Q-lvjuh-mol-coQ10 (DAILY MULTIVITAMIN) 200-100-500 mcg cap Take 1 capsule by mouth once daily. levothyroxine (SYNTHROID) 125 mcg tablet Take 1 tablet by mouth once daily. losartan-hydroCHLORO thiazide (HYZAAR) 100-25 mg per tablet Take 1 [...] (Temporal) Resp 20 Ht 157.5 cm (5' 2) Wt 71.2 kg (157 lb) SpO2 98% [...] Maintain good diet. Follow-up in 6 months. Kodak Harding MD March 19, 2024 March 19, 2024 Allergies As of Date: 03/19/2024 Noted Allergy Reaction CIGARETTE SMOKE 09/03/2020 16 - Unknown Date Reviewed: 03/19/2024 Reviewed by: Gibran Lester LPN - Fully Assessed Reason for Visit: 6 Month Exam [189] Primary Visit Diagnosis:Hypertensi on, essential [I10] Comment:Blood pressure well-controlled on current regimen. Continue present medications. Other Visit Diagnosis:Paroxysmal atrial fibrillation (HCC) [I48.0] Comment:Stable without RVR. Continue present m (more content not included)... Normal [facility] CBC W Auto Differential pane l (Bld)on 10-31-2023 Basophils (Bld) [#/Vol] 0.06 10*3/uL Normal <0.11 [facility] Comment on above: Order Comment: Speci men Type: BLOOD SPECIMEN Ordering Facility: [facility] Address: [address] [place] [address] Performed By: #### 5 7021-8 #### [facility] [place] [id number] [address] [place] [address] [place] Basophils/100 WBC (Bld) 0.6 % Normal [facility] Comment on above: Order Comment: Speci men Type: BLOOD SPECIMEN Ordering Facility: [facility] Address: [address] [place] [address] Performed By: #### 5 7021-8 #### [facility] CLIA [id number] [address] [place] [address] [place] Differential cell count method Nom (Bld) Auto Normal [facility] Comment on above: Order Comment: Speci men Type: BLOOD SPECIMEN Ordering Facility: [facility] Address: [address] [place] [address] Performed By: #### 5 7021-8 #### [facility] CLIA [id number] [address] [place] [address] [place] Eosinophils (Bld) [#/Vol] 0.13 10*3/uL Normal <0.46 [facility] Comment on above: Order Comment: Speci men Type: BLOOD SPECIMEN Ordering Facility: [facility] Address: [address] [place] [address] Performed By: #### 5 7021-8 #### [facility] CLIA [id number] [address] [place] [address] [place] Eosinophils/100 WBC (Bld) 1.3 % Normal [facility] Comment on above: Order Comment: Speci men Type: BLOOD SPECIMEN Ordering Facility: [facility] Address: [address] [place] [address] Performed By: #### 5 7021-8 #### [facility] CLIA [id number] [address] [place] [address] [place] Erythrocyte distribution width (RBC) [Ratio] 12.7 % Normal 11.5-15.0 [facility] Comment on above: Order Comment: Speci men Type: BLOOD SPECIMEN Ordering Facility: [facility] Address: [address] [place] [address] Performed By: #### 5 7021-8 #### [facility] CLIA [id number] [address] [place] [address] [place] Hematocrit (Bld) [Volume fraction] 39.6 % Normal 36.0-46.0 [facility] Comment on above: Order Comment: Speci men Type: BLOOD SPECIMEN Ordering Facility: [facility] Address: [address] [place] [address] Performed By: #### 5 7021-8 #### [facility] CLIA [id number] [address] [place] [address] [place] Hemoglobin (Bld) [Mass/Vol] 13.3 g/dL Normal 11.5-15.5 [facility] Comment on above: Order Comment: Speci men Type: BLOOD SPECIMEN Ordering Facility: [facility] Address: [address] [place] [address] Performed By: #### 5 7021-8 #### [facility] CLIA [id number] [address] [place] [address] [place] Immature granulocytes (Bld) [#/Vol] 0.04 10*3/uL Normal <0.10 [facility] Comment on above: Order Comment: Speci men Type: BLOOD SPECIMEN Ordering Facility: [facility] Address: [address] [place] [address] Performed By: #### 5 7021-8 #### [facility] CLIA [id number] [address] [place] [address] [place] Immature granulocytes/100 WBC (Bld) 0.4 % Normal [facility] Comment on above: Order Comment: Speci men Type: BLOOD SPECIMEN Ordering Facility: [facility] Address: [address] [place] [address] Performed By: #### 5 7021-8 #### [facility] CLIA [id number] [address] [place] [address] [place] Lymphocytes (Bld) [#/Vol] 2.15 10*3/uL Normal 1.00-4.00 [facility] Comment on above: Order Comment: Speci men Type: BLOOD SPECIMEN Ordering Facility: [facility] Address: [address] [place] [address] Performed By: #### 5 7021-8 #### [facility] CLIA [id number] [address] [place] [address] [place] Lymphocytes/100 WBC (Bld) 20.8 % Normal [facility] Comment on above: Order Comment: Speci men Type: BLOOD SPECIMEN Ordering Facility: [facility] Address: [address] [place] [address] Performed By: #### 5 7021-8 #### [facility] CLIA [id number] [address] [place] [address] [place] MCH (RBC) [Entitic mass] 32.0 pg Normal 26.0-34.0 [facility] Comment on above: Order Comment: Speci men Type: BLOOD SPECIMEN Ordering Facility: [facility] Address: [address] [place] [address] Performed By: #### 5 7021-8 #### [facility] CLIA [id number] [address] [place] [address] [place] MCHC (RBC) [Mass/Vol] 33.6 g/dL Normal 30.5-36.0 [facility] Comment on above: Order Comment: Speci men Type: BLOOD SPECIMEN Ordering Facility: [facility] Address: [address] [place] [address] Performed By: #### 5 7021-8 #### [facility] CLIA [id number] [address] [place] [address] [place] MCV (RBC) [Entitic vol] 95.4 fL Normal 80.0-100.0 [facility] Comment on above: Order Comment: Speci men Type: BLOOD SPECIMEN Ordering Facility: [facility] Address: [address] [place] [address] Performed By: #### 5 7021-8 #### [facility] CLIA [id number] [address] [place] [address] [place] Monocytes (Bld) [#/Vol] 0.75 10*3/uL Normal <0.87 [facility] Comment on above: Order Comment: Speci men Type: BLOOD SPECIMEN Ordering Facility: [facility] Address: [address] [place] [address] Performed By: #### 5 7021-8 #### [facility] CLIA [id number] [address] [place] [address] [place] Monocytes/100 WBC (Bld) 7.3 % Normal C [facility] Comment on above: Order Comment: Speci men Type: BLOOD SPECIMEN Ordering Facility: [facility] Address: [address] [place] [address] Performed By: #### 5 7021-8 #### [facility] CLIA [id number] [address] [place] [address] [place] Neutrophils (Bld) [#/Vol] 7.19 10*3/uL Normal 1.45-7.50 [facility] Comment on above: Order Comment: Speci men Type: BLOOD SPECIMEN Ordering Facility: [facility] Address: [address] [place] [address] Performed By: #### 5 7021-8 #### [facility] CLIA [id number] [address] [place] [address] [place] Neutrophils/100 WBC (Bld) 69.6 % Normal [facility] Comment on above: Order Comment: Speci men Type: BLOOD SPECIMEN Ordering Facility: [facility] Address: [address] [place] [address] Performed By: #### 5 7021-8 #### [facility] CLIA [id number] [address] [place] [address] [place] Nucleated RBC (Bld) [#/Vol] 10*3/uL Normal <0.01 [facility] Comment on above: Order Comment: Speci men Type: BLOOD SPECIMEN Ordering Facility: [facility] Address: [address] [place] [address] Performed By: #### 5 7021-8 #### [facility] CLIA [id number] [address] [place] [address] [place] Nucleated RBC/100 WBC (Bld) [Ratio] 0.0 /100 WBC Normal [facility] Comment on above: Order Comment: Speci men Type: BLOOD SPECIMEN Ordering Facility: [facility] Address: [address] [place] [address] Performed By: #### 5 7021-8 #### [facility] CLIA [id number] [address] [place] [address] [place] Platelet mean volume (Bld) [Entitic vol] 9.2 fL Normal 9.0-12.7 [facility] Comment on above: Order Comment: Speci men Type: BLOOD SPECIMEN Ordering Facility: [facility] Address: [address] [place] [address] Performed By: #### 5 7021-8 #### [facility] CLIA [id number] [address] [place] [address] [place] Platelets (Bld) [#/Vol] 229 10*3/uL Normal 150-400 [facility] Comment on above: Order Comment: Speci men Type: BLOOD SPECIMEN Ordering Facility: [facility] Address: [address] [place] [address] Performed By: #### 5 7021-8 #### [facility] CLIA [id number] [address] [place] [address] [place] RBC (Bld) [#/Vol] 4.15 10*6/uL Normal 3.90-5.20 [facility] Comment on above: Order Comment: Speci men Type: BLOOD SPECIMEN Ordering Facility: [facility] Address: [address] [place] [address] Performed By: #### 5 7021-8 #### [facility] CLIA [id number] [address] [place] [address] [place] WBC (Bld) [#/Vol] 10.32 10*3/uL Normal 3.70-11.00 [facility] Comment on above: Order Comment: Speci men Type: BLOOD SPECIMEN Ordering Facility: [facility] Address: [address] [place] [address] Performed By: #### 5 7021-8 #### [facility] CLIA [id number] [address] [place] [address] [place] Comprehensive metabolic 2000 panelon 10-31-2023 Albumin [Mass/Vol] 4.0 g/dL Normal 3.9-4.9 [facility] Comment on above: Order Comment: Speci men Type: BLOOD SPECIMEN Ordering Facility: [facility] Address: [address] [place], [place] [address] Performed By: #### 2 4323-8 #### [facility] CLIA [id number] [address] [place] [address] [place] ALP [Catalytic activity/Vol] 73 U/L Normal 34-123 [facility] Comment on above: Order Comment: Speci men Type: BLOOD SPECIMEN Ordering Facility: [facility] Address: [address] [place] [address] Performed By: #### 2 4323-8 #### [facility] CLIA [id number] [address] [place] [address] [place] ALT [Catalytic activity/Vol] 12 U/L Normal 7-38 [facility] Comment on above: Order Comment: Speci men Type: BLOOD SPECIMEN Ordering Facility: [facility] Address: [address] [place] [id number] Performed By: #### 2 4323-8 #### [facility] CLIA [id number] [address] [place] [address] [place] Anion gap [Moles/Vol] 10 mmol/L Normal 8-15 [facility] Comment on above: Order Comment: Speci men Type: BLOOD SPECIMEN Ordering Facility: [facility] Address: [address] [place] [address] Performed By: #### 2 4323-8 #### [facility] CLIA [id number] [address] [place] [address] [place] AST [Catalytic activity/Vol] 17 U/L Normal 13-35 [facility] Comment on above: Order Comment: Speci men Type: BLOOD SPECIMEN Ordering Facility: [facility] Address: [address] [place] [address] Performed By: #### 2 4323-8 #### [facility] CLIA [id number] [address] [place] [address] [place] Bilirubin [Mass/Vol] 1.2 mg/dL Normal 0.2-1.3 [facility] Comment on above: Order Comment: Speci men Type: BLOOD SPECIMEN Ordering Facility: [facility] Address: [address] [place] [address] Performed By: #### 2 4323-8 #### [facility] CLIA [id number] [address] [place] [address] [place] Calcium [Mass/Vol] 10.3 mg/dL High 8.5-10.2 [facility] Comment on above: Order Comment: Speci men Type: BLOOD SPECIMEN Ordering Facility: [facility] Address: [address] [place] [address] Performed By: #### 2 4323-8 #### [facility] CLIA [id number] [address] [place] [address] [place] Chloride [Moles/Vol] 99 mmol/L Normal 98-107 [facility] Comment on above: Order Comment: Speci men Type: BLOOD SPECIMEN Ordering Facility: [facility] Address: [address] [place] [address] Performed By: #### 2 4323-8 #### [facility] CLIA [id number] [address] [place] [address] [place] CO2 [Moles/Vol] 25 mmol/L Normal 22-30 [facility] Comment on above: Order Comment: Speci men Type: BLOOD SPECIMEN Ordering Facility: [facility] Address: [address] [place] [address] Performed By: #### 2 4323-8 #### [id number] [address] [place] [address] [place] Creatinine [Mass/Vol] 0.95 mg/dL Normal 0.58-0.96 [facility] Comment on above: Order Comment: Speci men Type: BLOOD SPECIMEN Ordering Facility: [facility] Address: [address] [place] [address] Performed By: #### 2 4323-8 #### [facility] CLIA [id number] [address] [place] [address] [place] Creatinine and Glomerular filtration rate.predicted panel (S/P/Bld) 58 mL/min/1.73m??? Low >=60 [facility] Comment on above: Order Comment: Speci men Type: BLOOD SPECIMEN Ordering Facility: [facility] Address: [address] [place] [address] Result Comment: Dana mated Glomerular Filtration Rate (eGFR) is calculated using the 2020 CKD-EPI creatinine equation. This equation utilizes serum creatinine, sex, and age as parameters. The creatinine assay has traceable calibration to isotope dilution-mass spectrometry. Refer to KDIGO guidelines for clinical interpretation. In patients with unstable renal function, e.g. those with acute kidney injury, the eGFR may not accurately reflect actual GFR. Performed By: #### 2 4323-8 #### [facility] [id number] [address] [place] [address] [place] Glucose [Mass/Vol] 90 mg/dL Normal 74-99 [facility] Comment on above: Order Comment: Jazmin moya Type: BLOOD SPECIMEN Ordering Facility: [facility] Address: [address] [place] [address] Result Comment: The [place] Diabetes Association (ADA) provides guidance for cutoff [...] Standards of Medical Care in Diabetes 2016, [place] [employer] Association. Diabetes Care. 2016.39(Suppl 1). Performed By: #### 2 4323-8 #### [facility] [id number] [address] [place] [address] [place] Potassium [Moles/Vol] 3.9 mmol/L Normal 3.7-5.1 [facility] Comment on above: Order Comment: Jazmin moya Type: BLOOD SPECIMEN Ordering Facility: [facility] Address: [address] [place] [id number] Performed By: #### 2 4323-8 #### [facility] [id number] [address] [place] [address] [place] Protein [Mass/Vol] 7.1 g/dL Normal 6.3-8.0 [facility] Comment on above: Order Comment: Jazmin moya Type: BLOOD SPECIMEN Ordering Facility: [facility] Address: [address] [place] [address] Performed By: #### 2 4323-8 #### [facility] CLIA [id number] [address] [place] [address] [place] Sodium [Moles/Vol] 134 mmol/L Low 136-144 [facility] Comment on above: Order Comment: Speci men Type: BLOOD SPECIMEN Ordering Facility: [facility] Address: [address] [place] [address] Performed By: #### 2 4323-8 #### [facility] [id number] [address] [place] [address] [place] Urea nitrogen [Mass/Vol] 31 mg/dL High 7- [facility] Comment on above: Order Comment: Speci men Type: BLOOD SPECIMEN Ordering Facility: [facility] Address: [address] [place] [address] Performed By: #### 2 4323-8 #### [facility] [id number] [address] [place] [address] [place] Lipid 1996 panelon 4 Cholesterol [Mass/Vol] 97 mg/dL Normal <200 [facility] Comment on above: Order Comment: Speci men Type: BLOOD SPECIMEN Ordering Facility: [facility] Address: [address] [place] [address] Result Comment: <200 mg/dL, Desirable 200-239 mg/dL, Borderline high >239 mg/dL, High Performed By: #### 2 4331-1 #### [facility] CLIA [id number] [address] [place] [address] [place] [facility] CLIA [id number] [address] [place] [address] [place] #### 3016-3 #### [facility] CLIA [id number] [address] [place] [address] [place] Cholesterol in HDL [Mass/Vol] 48 mg/dL Normal >39 [facility] Comment on above: Order Comment: Jazmin moya Type: BLOOD SPECIMEN Ordering Facility: [facility] Address: [address] [place] [address] Result Comment: 40-5 9 mg/dL, Acceptable >59 mg/dL, High: Negative risk factor for coronary heart disease <40 mg/dL, Low: Positive risk factor for coronary heart disease Performed By: #### 2 4331-1 #### [facility] CLIA [id number] [address] [place] [address] [place] [facility] CLIA [id number] [address] [place] [address] [place] #### 3016-3 #### [facility] CLIA [id number] [address] [place] [address] [place] Cholesterol in LDL [Mass/Vol] 36 mg/dL Normal <100 [facility] Comment on above: Order Comment: Jazmin moya Type: BLOOD SPECIMEN Ordering Facility: [facility] Address: [address] [place] [address] Result Comment: <100 mg/dL, Optimal 100-129 mg/dL, Near optimal/above optimal 130-159 mg/dL, Borderline high 160-189 mg/dL, High >189 mg/dL, Very high Secondary prevention optimal LDL Cholesterol levels are recommended to be < 70 mg/dL Performed By: #### 2 4331-1 #### [facility] CLIA [id number] [address] [place] [address] [place] [facility] CLIA [id number] [address] [place] [address] [place] #### 3016-3 #### [facility] CLIA [id number] [address] [place] [id number] [place] Cholesterol in LDL/Cholesterol in HDL [Mass ratio] 0.75 {ratio} Normal <2.54 [facility] Comment on above: Order Comment: Speci men Type: BLOOD SPECIMEN Ordering Facility: [facility] Address: [address] [place] [address] Result Comment: Roxie paz: 1. National Cholesterol Education Program ATP III Guideline At-A-Glance Quick Desk Reference: National Heart, Lung, and Blood Presto. National Institutes of Health. 2001: NIH Publication No. 01-3305. 2. An International Atherosclerosis Society position paper: global recommendations for the management of dyslipidemia: executive summary, Atherosclerosis. 2014: 232(2):410-413. Performed By: #### 2 4331-1 #### [facility] CLIA [id number] [address] [place] [address] [place] [facility] [id number] [address] [place] [address] [place] #### 3016-3 #### [facility] CLIA [id number] [address] [place] [address] [place] Cholesterol in VLDL [Mass/Vol] 13 mg/dL Normal <30 [facility] Comment on above: Order Comment: Aichai men Type: BLOOD SPECIMEN Ordering Facility: [facility] Address: [address] [place] [address] Performed By: #### 2 4331-1 #### [facility] CLIA [id number] [address] [place] [address] [place] [facility] [id number] [address] [place] [address] [place] #### 3016-3 #### [facility] CLIA [id number] [address] [place] [address] [place] Cholesterol non HDL [Mass/Vol] 49 mg/dL Normal <130 [facility] Comment on above: Order Comment: Speci men Type: BLOOD SPECIMEN Ordering Facility: [facility] Address: [address] [place], [place] [id number] Result Comment: <130 mg/dL, Optimal 130-159 mg/dL, Near optimal/above optimal 160-189 mg/dL, Borderline high 190-219 mg/dL, High >219 mg/dL, Very high Secondary prevention optimal non HDL Cholesterol levels are recommended to be <100 mg/dL Performed By: #### 2 4331-1 #### [facility] CLIA [id number] [address] [place] [address] [place] [facility] [id number] [place] [address] [place] #### 3016-3 #### [facility] CLIA [id number] [address] [place] [address] [place] Cholesterol.total/Choles terol in HDL [Mass ratio] 2.02 {ratio} Normal <5.10 [facility] Comment on above: Order Comment: Speci men Type: BLOOD SPECIMEN Ordering Facility: [facility] Address: [address] [place], [place] [address] Performed By: #### 2 4331-1 #### [facility] CLIA [id number] [address] [place] [address] [place] [id number] [place] [address] [place] #### 3016-3 #### [facility] CLIA [id number] [address] [place] [address] [place] FASTING TIME 12 hrs Normal [facility] Comment on above: Order Comment: Speci men Type: BLOOD SPECIMEN Ordering Facility: [facility] Address: [address] [place], [place] [address] Performed By: #### 2 4331-1 #### [facility] CLIA [id number] [address] [place] [address] [place] [facility] CLIA [id number] [address] [place] [address] [place] #### 3016-3 #### [facility] CLIA [id number] [address] [place] [address] [place] Triglyceride [Mass/Vol] 63 mg/dL Normal <150 [facility] Comment on above: Order Comment: Speci men Type: BLOOD SPECIMEN Ordering Facility: [facility] Address: [address] [place] [address] Result Comment: <150 mg/dL, Normal 150-199 mg/dL, Borderline high 200-499 mg/dL, High >499 mg/dL, Very high Performed By: #### 2 4331-1 #### [facility] CLIA [id number] [address] [place] [address] [place] [facility] CLIA [id number] [address] [place] [address] [place] #### 3016-3 #### [facility] CLIA [id number] [address] [place] [address] [place] TSH SerPl-aCncon 10-31-2023 TSH Qn 3.530 m[IU]/L Normal 0.270-4.200 [facility] Comment on above: Order Comment: Speci men Type: BLOOD SPECIMEN Ordering Facility: [facility] Address: [address] [place] [address] Performed By: #### 2 4331-1 #### [facility] CLIA [id number] [address] [place] [address] [place] [facility] CLIA [id number] [address] [place] [address] [place] #### 3016-3 #### [facility] CLIA [id number] [address] [place] [address] [place] Absolute lymphocyte counton 09-21-2021 Lymphocytes Auto (Unsp spec) [#/Vol] 2.80 10*3/uL 0.83-4.51 [facility] Work Phone: Basophil percentageon 2021 Basophils/100 WBC (Bld) 0.7 % 0-1 [facility] Work Phone: Bilirubin [Mass/Vol] 0.70 mg/dL 0.20-1.00 [facility] Work Phone: Comment on above: For patients on eltr ombopag therapy, use of Dimension Cyrus TBIL is not recommended. Chloride [Moles/Vol] 105 mmol/L 98-107 [facility] Work Phone: Cholesterol [Mass/Vol] 114 mg/dL <200 [facility] Work Phone: Comment on above: <200 mg/dL Desirable 200-240 mg/dL Borderline >240 mg/dL High Risk Eosinophils/100 WBC (Bld) 2.3 % 0-5 [facility] Work Phone: Glucose [Mass/Vol] 95 mg/dL 74-106 [facility] Work Phone: Neutrophils (Bld) [#/Vol] 6.1 10*3/uL 2.0-7.7 [facility] Work Phone: Neutrophils/100 WBC (Bld) 61.5 % 47-70 [facility] Work Phone: Potassium [Moles/Vol] 3.9 mmol/L 3.5-5.1 [facility] Work Phone: Protein [Mass/Vol] 7.7 g/dL 6.4-8.2 [facility] Work Phone: Sodium [Moles/Vol] 137 mmol/L 136-145 [facility] Work Phone: Triglyceride [Mass/Vol] 55 mg/dL <199 [facility] Work Phone: Comment on above: The drugs N-Acetylcy steine and Metamizole may falsely depress this assay.Serum Triglycerides Reference Interval Normal <150 mg/dL Borderline high 150 - 199 mg/dL High 200 - 499 mg/dL Very High > or = 500 mg/dL WBC (Bld) [#/Vol] 9.9 10*3/uL 4.4-11.0 [facility] Work Phone: [phone] Blood erythrocytes count (nu mber/volume)on 09-21-2021 RBC (Bld) [#/Vol] 4.42 10*6/uL 4.2-5.4 [facility] Work Phone: Blood hemoglobin measurement (mass/volume)on 09-21-2021 Hemoglobin (Bld) [Mass/Vol] 13.9 g/dL 12.0-15.0 [facility] Work Phone: [phone] Blood lymphocytes/100 leukoc yteson 09-21-2021 Lymphocytes/100 WBC (Bld) 28.2 % 19-41 [facility] Work Phone: [phone] Blood monocytes/100 leukocyt eson 09-21-2021 Monocytes/100 WBC (Bld) 6.7 % 0-10 [facility] Work Phone: Blood platelet mean volumeon 09-21-2021 Platelet mean volume (Bld) [Entitic vol] 9.8 fL 6.2-12.0 [facility] Work Phone: [phone] Determination of erythrocyte mean corpuscular volume (MCV)on 09-21-2021 MCV (RBC) [Entitic vol] 98.2 fL 81-99 [facility] Work Phone: [phone] Hematocrit Auto (Bld) [Volum e fraction]on 09-21-2021 Hematocrit (Bld) [Volume fraction] 43.4 % 37-47 [facility] Work Phone: [phone] Laboratory - Chemistry and C hemistry - challengeon 09-21-2021 ALP [Catalytic activity/Vol] 71 U/L 45-117 [facility] Work Phone: ALT [Catalytic activity/Vol] 18 U/L 13-56 [facility] Work Phone: [phone] CO2 [Moles/Vol] 27.0 mmol/L 21.0-32.0 [facility] Work Phone: [phone] Globulin (S) [Mass/Vol] 4.3 g/dL 2.2-4.2 [facility] Work Phone: [phone] Urea nitrogen/Creatinine [Mass ratio] 26.7 mg/mg 10-20 [facility] Work Phone: [phone] Laboratory - Hematology and Cell countson 09-21-2021 Erythrocyte distribution width (RBC) [Entitic vol] 46.2 fL 35.1-43.9 [facility] Work Phone: [phone] Erythrocyte distribution width (RBC) [Ratio] 12.8 % 11.6-14.6 [facility] Work Phone: [phone] Immature granulocytes/100 WBC (Bld) 0.600 % 0.0-0.9 [facility] Work Phone: [phone] Comment on above: IG% - Immature Granu locytes (promyelocytes, myelocytes and metamyelocytes) > 1% indicates that a LEFT SHIFT is Present. MCH (RBC) [Entitic mass] 31.4 pg 27.0-32.0 [facility] Work Phone: [phone] Nucleated RBC/100 WBC (Bld) [Ratio] 0 % 0-5 [facility] Work Phone: [phone] MCHC Auto (RBC) [Mass/Vol]on 09-21-2021 MCHC (RBC) [Mass/Vol] 32.0 g/dL 32-36 [facility] Work Phone: [phone] Panel Informationon 09-21 Estimated GFR (MDRD) Amer 67 mL/min >60 [facility] Work Phone: [phone] Comment on above: GFR Calc Estimated GFR (MDRD) Non-Af Amer 55 mL/min >60 [facility] Work Phone: [phone] Comment on above: Non- GFR Calc Thyroid Stimulating Hormone (TSH) 2.45 uIU/mL 0.358-3.74 [facility] Work Phone: Platelets bldon 09-21-2021 Platelets (Bld) [#/Vol] 248 10*3/uL 150-450 [facility] Work Phone: Serum or plasma albumin sarbjit urement (mass/volume)on 09-21-2021 Albumin [Mass/Vol] 3.4 g/dL 3.2-5.0 [facility] Work Phone: [phone] Serum or plasma albumin/glob ulin mass ratioon 09-21-2021 Albumin/Globulin [Mass ratio] 0.8 {ratio} 0.9-2.4 [facility] Work Phone: Serum or plasma calcium sarbjit urement (mass/volume)on 09-21-2021 Calcium [Mass/Vol] 10.1 mg/dL 8.5-10.1 [facility] Work Phone: Serum or plasma cholesterol in HDL measurement (mass/volume)on 09-21-2021 Cholesterol in HDL [Mass/Vol] 55 mg/dL >40 [facility] Work Phone: Comment on above: The drugs N-Acetylcy steine and Metamizole may falsely depress this assay. Reference Range HDL <40 mg/dL Low HDL Cholesterol HDL >or= 60 mg/dL High HDL Cholesterol Serum or plasma cholesterol in VLDL measurement (mass/volume)on 09-21-2021 Cholesterol in VLDL [Mass/Vol] 11 mg/dL 5-40 [facility] Work Phone: [phone] Serum or plasma creatinine m easurement (mass/volume)on 09-21-2021 Creatinine [Mass/Vol] 1.01 mg/dL 0.55-1.02 [facility] Work Phone: Comment on above: The validity of the calculated GFR & GFRAA in patients over 70 years has not been determined. Clinical correlation is essential. Serum or plasma low density lipoprotein (LDL) cholesterol measurement (mass/volume)on 09-21-2021 Cholesterol in LDL [Mass/Vol] 48 mg/dL 0-130 [facility] Work Phone: Serum or plasma urea nitroge n measurement (mass/volume)on 09-21-2021 Urea nitrogen [Mass/Vol] 27 mg/dL 7-18 [facility] Work Phone: Thin prep Papanicolaou smear with manual screeningon 09-21-2021 Thin prep Papanicolaou smear with manual screening 18 U/L 15-37 [facility] Work Phone: Thin prep Papanicolaou smear with manual screening 5 5-15 [facility] Work Phone: TSHon 03-06-2018 Thyrotropin Qn 1.600 UIU/ML Normal 0.358-3.740 [facility] Comment on above: Result Comment: 3rd generation ultra sensitive TSH Performed By: #### L [phone] ####[facility] [id number] [place], [place] [address]Ev# [phone] Vital Signs Date Time Vital Sign Value Performing Clinician Facility 11-05-2024 07:15-0400 Body height 157.[address] Kodak Harding MD Work Phone: [facility] 11-05-2024 07:15-0400 Body mass index (BMI) [Ratio] 30.7 kg/m2 Dr. Kodak Harding MD Work Phone: [facility] 11-05-2024 07:15-0400 Body temperature 97.7 [degF] Dr. Kodak Harding MD Work Phone: [facility] 11-05-2024 07:15-0400 Body weight 76.[address] Kodak Harding MD Work Phone: [facility] 11-05-2024 07:15-0400 Diastolic blood pressure 82 mm[Hg] Dr. Kodak Harding MD Work Phone: [facility] 11-05-2024 07:15-0400 Heart rate 73 /min Dr. Kodak Harding MD Work Phone: [facility] 11-05-2024 07:15-0400 Respiratory rate 18 /min Dr. Kodak Harding MD Work Phone: [facility] 11-05-2024 07:15-0400 SaO2% (BldA) [Mass fraction] 97 % Dr. Kodak Harding MD Work Phone: [facility] 11-05-2024 07:15-0400 Systolic blood pressure 134 mm[Hg] Dr. Kodak Harding MD Work Phone: [facility] 10-22-2024 19:40-0400 Body temperature 98.4 [degF] Dr. Kodak Harding MD Work Phone: [facility] 10-22-2024 19:40-0400 Diastolic blood pressure 98 mm[Hg] Dr. Kodak Harding MD Work Phone: [facility] 10-22-2024 19:40-0400 Heart rate 81 /min Dr. Kodak Harding MD Work Phone: [facility] 10-22-2024 19:40-0400 Respiratory rate 16 /min Dr. Kodak Harding MD Work Phone: [facility] 10-22-2024 19:40-0400 SaO2% (BldA) [Mass fraction] 93 % Dr. Kodak Harding MD Work Phone: [facility] 10-22-2024 19:40-0400 Systolic blood pressure 149 mm[Hg] Dr. Kodak Harding MD Work Phone: [facility] 10-22-2024 17:47-0400 Body mass index (BMI) [Ratio] 32.5 kg/m2 Dr. Kodak Harding MD Work Phone: [facility] 10-22-2024 17:47-0400 Body weight 80.[address] Kodak Harding MD Work Phone: [facility] 10-22-2024 14:54-0400 Body height 157.[address] Kodak Harding MD Work Phone: [facility] 09-17-2024 13:05-0400 Body height 157.5 cm Kodak Harding MD Work Phone: [facility] 09-17-2024 13:05-0400 Body mass index (BMI) [Ratio] 27.62 kg/m2 Kodak Harding MD Work Phone: [facility] 09-17-2024 13:05-0400 Body temperature 96.91 [degF] Kodak Harding MD Work Phone: [facility] 09-17-2024 13:05-0400 Body weight 68.49 kg Kodak Harding MD Work Phone: [facility] 09-17-2024 13:05-0400 Diastolic blood pressure 76 mm[Hg] Kodak Harding MD Work Phone: [facility] 09-17-2024 13:05-0400 Heart rate 90 /min Kodak Harding MD Work Phone: [facility] 09-17-2024 13:05-0400 Respiratory rate 18 /min Kodak Harding MD Work Phone: [facility] 09-17-2024 13:05-0400 SaO2% (BldA) [Mass fraction] 94 % Kodak Harding MD Work Phone: [facility] 09-17-2024 13:05-0400 Systolic blood pressure 118 mm[Hg] Kodak Harding MD Work Phone: [facility] 07-30-2024 12:58-0400 Body height 157.5 cm Kodak Harding MD Work Phone: [facility] 07-30-2024 12:58-0400 Body mass index (BMI) [Ratio] 28.9 kg/m2 Kodak Harding MD Work Phone: [facility] 07-30-2024 12:58-0400 Body temperature 97.3 [degF] Kodak Harding MD Work Phone: [facility] 07-30-2024 12:58-0400 Body weight 71.67 kg Kodak Hrading MD Work Phone: [facility] 07-30-2024 12:58-0400 Diastolic blood pressure 78 mm[Hg] Kodak Harding MD Work Phone: [facility] 07-30-2024 12:58-0400 Heart rate 68 /min Kodak Harding MD Work Phone: [facility] 07-30-2024 12:58-0400 Respiratory rate 20 /min Kodak Harding MD Work Phone: [facility] 07-30-2024 12:58-0400 SaO2% (BldA) [Mass fraction] 94 % Kodak Harding MD Work Phone: [facility] 07-30-2024 12:58-0400 Systolic blood pressure 126 mm[Hg] Kodak Harding MD Work Phone: [facility] 06-27-2024 13:01-0400 Body height 157.5 cm Kodak Harding MD Work Phone: [facility] 06-27-2024 13:01-0400 Body mass index (BMI) [Ratio] 27.98 kg/m2 Kodak Harding MD Work Phone: [facility] 06-27-2024 13:01-0400 Body temperature 96.91 [degF] Kodak Harding MD Work Phone: [facility] 06-27-2024 13:01-0400 Body weight 69.4 kg Kodak Harding MD Work Phone: [facility] 06-27-2024 13:01-0400 Diastolic blood pressure 78 mm[Hg] Kodak Harding MD Work Phone: [facility] 06-27-2024 13:01-0400 Heart rate 105 /min Kodak Harding MD Work Phone: [facility] 06-27-2024 13:01-0400 Respiratory rate 18 /min Kodak Harding MD Work Phone: [facility] [facility] 06-27-2024 13:01-0400 SaO2% (BldA) [Mass fraction] 95 % Kodak Harding MD Work Phone: [facility] 06-27-2024 13:01-0400 Systolic blood pressure 122 mm[Hg] Kodak Harding MD Work Phone: [facility] 06-15-2024 13:57-0500 Body height 157.[address] Kodak Harding MD Work Phone: [facility] 06-15-2024 13:57-0500 Body weight 69.[address] Kodak Harding MD Work Phone: [facility] 06-15-2024 09:12-0500 Diastolic blood pressure 71 mm[Hg] Dr. Kodak Harding MD Work Phone: [facility] 06-15-2024 09:12-0500 Heart rate 99 /min Dr. Kodak Harding MD Work Phone: [facility] 06-15-2024 09:12-0500 Systolic blood pressure 135 mm[Hg] Dr. Kodak Harding MD Work Phone: [facility] 06-15-2024 09:00-0500 Body temperature 98.1 [degF] Dr. Kodak Harding MD Work Phone: [facility] 06-15-2024 09:00-0500 Respiratory rate 16 /min Dr. Kodak Harding MD Work Phone: [facility] 06-15-2024 09:00-0500 SaO2% (BldA) [Mass fraction] 95 % Dr. Kodak Harding MD Work Phone: [facility] 06-14-2024 05:04-0500 Body mass index (BMI) [Ratio] 28 kg/m2 Dr. Kodak Harding MD Work Phone: [facility] 06-13-2024 07:10-0500 Inhaled oxygen flow rate 2 L/min Dr. Kodak Harding MD Work Phone: [facility] 03-19-2024 13:49-0500 Body height 157.5 cm Kodak Harding MD Work Phone: [facility] 03-19-2024 13:49-0500 Body mass index (BMI) [Ratio] 28.72 kg/m2 Kodak Harding MD Work Phone: [facility] 03-19-2024 13:49-0500 Body temperature 97.7 [degF] Kodak Harding MD Work Phone: [facility] 03-19-2024 13:49-0500 Body weight 71.22 kg Kodak Harding MD Work Phone: [facility] 03-19-2024 13:49-0500 Diastolic blood pressure 82 mm[Hg] Kodak Harding MD Work Phone: [facility] 03-19-2024 13:49-0500 Heart rate 98 /min Kodak Harding MD Work Phone: [facility] 03-19-2024 13:49-0500 Respiratory rate 20 /min Kodak Harding MD Work Phone: [facility] 03-19-2024 13:49-0500 SaO2% (BldA) [Mass fraction] 98 % Kodak Harding MD Work Phone: [facility] 03-19-2024 13:49-0500 Systolic blood pressure 126 mm[Hg] Kodak Harding MD Work Phone: [facility] 09-26-2023 13:12-0400 Body height 157.5 cm Kodak Harding MD Work Phone: [facility] 09-26-2023 13:12-0400 Body mass index (BMI) [Ratio] 29.45 kg/m2 Kodak Harding MD Work Phone: [facility] 09-26-2023 13:12-0400 Body temperature 97.59 [degF] Kodak Harding MD Work Phone: [facility] 09-26-2023 13:12-0400 Body weight 73.03 kg Kodak Harding MD Work Phone: [facility] 09-26-2023 13:12-0400 Diastolic blood pressure 82 mm[Hg] Kodak Harding MD Work Phone: [facility] 09-26-2023 13:12-0400 Heart rate 64 /min Kodak Harding MD Work Phone: [facility] 09-26-2023 13:12-0400 Respiratory rate 18 /min Kodak Harding MD Work Phone: [facility] 09-26-2023 13:12-0400 SaO2% (BldA) [Mass fraction] 98 % Kodak Harding MD Work Phone: [facility] 09-26-2023 13:12-0400 Systolic blood pressure 128 mm[Hg] Kodak Harding MD Work Phone: [facility] 03-23-2023 13:03-0500 Body height 157.5 cm Kodak Harding MD Work Phone: [facility] 03-23-2023 13:03-0500 Body temperature 97.59 [degF] Kodak Harding MD Work Phone: [facility] 03-23-2023 13:03-0500 Body weight 74.84 kg Kodak Harding MD Work Phone: [facility] 03-23-2023 13:03-0500 Diastolic blood pressure 82 mm[Hg] Kodak Harding MD Work Phone: [facility] 03-23-2023 13:03-0500 Heart rate 72 /min Kodak Harding MD Work Phone: [facility] 03-23-2023 13:03-0500 Respiratory rate 18 /min Kodak Harding MD Work Phone: [facility] 03-23-2023 13:03-0500 SaO2% (BldA) [Mass fraction] 97 % Kodak Harding MD Work Phone: [facility] 03-23-2023 13:03-0500 Systolic blood pressure 136 mm[Hg] Kodak Harding MD Work Phone: [facility] 03-22-2022 13:25-0500 Body height 157.5 cm Kodak Harding MD Work Phone: [facility] 03-22-2022 13:25-050 Body temperature 96.91 [degF] Kodak Harding MD Work Phone: [facility] 03-22-2022 13:25-0500 Body weight 79.55 kg Kodak Harding MD Work Phone: [facility] 03-22-2022 13:25-0500 Diastolic blood pressure 86 mm[Hg] Kodak Harding MD Work Phone: [facility] 03-22-2022 13:25-0500 Heart rate 64 /min Kodak Harding MD Work Phone: [facility] 03-22-2022 13:25-0500 Respiratory rate 18 /min Kodak Harding MD Work Phone: [facility] 03-22-2022 13:25-0500 SaO2% (BldA) [Mass fraction] 97 % Kodak Harding MD Work Phone: [facility] 03-22-2022 13:25-0500 Systolic blood pressure 138 mm[Hg] Kodak Harding MD Work Phone: [facility] Encounters Encounter Date Encounter Type Care Provider Facility Start: 11-07-2024 End: 11-08-2024 Telephone encounter Kodak Harding MD Work Phone: [facility] Comment on above: Orders Start: 11-05-2024 End: 11-06-2024 Telephone encounter Kodak Harding MD Work Phone: [facility] Comment on above: Patient Update Start: 11-05-2024 ambulatory Kodak Harding Facility: [facility] Start: 11-05-2024 End: 11-05-[address] Tamir Cardoso DO -[facility] Work Phone: Start: 11-05-2024 End: 11-05-[address] Kodak Harding MD Work Phone: -[facility] Start: 10-29-2024 End: 10-30-2024 Refill Kodak Harding MD Work Phone: [facility] Comment on above: Refill Request Start: 10-23-2024 End: 10-23-2024 ambulatory Arcelia Weber RN [facility] Start: 10-23-2024 End: 10-23-2024 Follow-up encounter Arcelia Weber RN [facility] Comment on above: Primary Care Coordin ator Ed Follow Up Start: 10-23-2024 End: 10-23-2024 Refill Kodak Hadring MD Work Phone: [facility] Comment on above: Refill Request Start: 10-22-2024 End: 10-22-2024 Emergency department patient visit Dr. Kodak Harding MD Work Phone: -Emergency Department Work Phone: Start: 10-22-2024 End: 10-23-2024 Patient encounter procedure [facility] Provider [facility] Start: 10-01-2024 End: 10-01-2024 ambulatory KODAK HARDING Facility:[facility] Start: 09-17-2024 End: 09-17-2024 Patient encounter procedure Kodak Harding MD Work Phone: [facility] Comment on above: Encounter for seda daniel regarding advance directives (Primary Dx); Screening for depression; Encounter for screening examination for other mental health and behavioral disorders; Generalized weakness; Acquired hypothyroidism; Mixed hyperlipidemia; Hypertension, essential; prison (current) use of anticoagulants; Persistent atrial fibrillation (HCC); Screening for deficiency anemia; Primary osteoarthritis involving multiple joints; Medicare annual wellness visit, subsequent Start: 09-17-2024 End: 09-17-2024 ambulatory KODAK HARDING Facility:[id number] Start: 07-30-2024 End: 07-30-2024 Office outpatient visit 15 minutes Kodak Harding MD Work Phone: [facility] Comment on above: Paroxysmal atrial fi brillation (HCC) (Primary Dx); Hypertension, essential; Acquired hypothyroidism; Mixed hyperlipidemia; prison (current) use of anticoagulants Start: 07-30-2024 End: 07-30-2024 ambulatory KODAK HARDING Facility:[id number] Start: 07-05-2024 End: 07-05-2024 Patient Outreach Arcelia Weber RN [facility] Comment on above: Initial phone contac t for Transitional Care Management Start: 06-27-2024 End: 06-27-2024 Transitional care manage srvc 7 day discharge Kodak Harding MD [facility] Phone[facility] Comment on above: Persistent atrial fi brillation (HCC) (Primary Dx); Hypertension, essential; Sepsis, due to unspecified organism, unspecified whether acute organ dysfunction present (HCC); Acute respiratory failure with hypoxia (HCC); Acute lower UTI; Acute heart failure with mildly reduced ejection fraction (HFmrEF, 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); 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 Start: 06-27-2024 End: 06-27-2024 [facility] KODAK HARDING Facility:[id number] Start: 06-19-2024 End: 06-19-2024 Patient Outreach Arcelia Weber RN [facility] Comment on above: Started Initial phon e contact for Transitional Care Management Start: 06-18-2024 End: 06-18-2024 Patient Outreach Arcelia Weber RN [facility] Comment on above: Started Initial phon e contact for Transitional Care Management Start: 06-15-2024 End: 06-18-2024 Patient encounter procedure [facility] Provider [facility] Department Start: 06-15-2024 Non-patient / Non-visit [facility] Work Phone: Start: 06-14-2024 Non-patient / Non-visit [facility] Work Phone: Start: 06-13-2024 Non-patient / Non-visit [facility] Work Phone: Start: 06-12-2024 ambulatory Kodak Harding Facility: [facility] Start: 06-12-2024 Non-patient / Non-visit Dr. Demetrius anguiano MD -[facility] Start: 06-11-2024 End: 06-15-2024 Evaluation and management of inpatient Dr. Aster Ramsey MD -Progressive Care Unit Work Phone: Start: 06-11-2024 Non-patient / Non-visit Dr. Mio alba MD -[facility] Work Phone: Start: 06-11-2024 ambulatory Mio Benitez Facility:[facility] Start: 06-11-2024 End: 06-12-2024 Patient encounter procedure [facility] Provider [facility] Department Start: 03-19-2024 End: 03-19-2024 Office outpatient visit 15 minutes Kodak Harding MD Work Phone: [facility] Comment on above: Hypertension, essent ial (Primary Dx); Paroxysmal atrial fibrillation (HCC) Start: 03-19-2024 End: 03-19-2024 ambulatory KODAK HARDING Facility:[id number] Start: 03-03-2024 End: 03-05-2024 Refill Kodak Harding MD Work Phone: [facility] Comment on above: Refill Request Start: 10-31-2023 End: 10-31-2023 ambulatory KODAK HARDING Facility:[facility] Start: 10-31-2023 Encounter for genera l adult medical examination without abnormal findings KODAK HARDING [facility] Start: 09-26-2023 End: 09-26-2023 Patient encounter procedure Kodak Harding MD Work Phone: [facility] Comment on above: Wellness examination (Primary Dx); Advanced directives, counseling/discussion; Hypertension, essential; Paroxysmal atrial fibrillation (HCC); Acquired hypothyroidism; Osteoarthritis of knee, unspecified laterality, unspecified osteoarthritis type; Screening for deficiency anemia; Pure hypercholesterolemia; Medicare annual wellness visit, subsequent Start: 09-26-2023 End: 09-26-2023 Patient encounter status Kodak Harding MD Work Phone: [facility] Start: 03-23-2023 End: 03-23-2023 Office outpatient visit 15 minutes Kodak Harding MD Work Phone: [facility] Comment on above: Paroxysmal atrial fi brillation (HCC) (Primary Dx); Hypertension, essential; Acquired hypothyroidism; Osteoarthritis of knee, unspecified laterality, unspecified osteoarthritis type Start: 10-05-2022 Telephone encounter Kodak Harding MD Work Phone: [facility] Comment on above: Population Health Na vigation Outreach Start: 03-22-2022 End: 03-22-2022 Office outpatient visit 15 minutes Kodak Harding MD Work Phone: [facility] Comment on above: Paroxysmal atrial fi brillation (HCC) (Primary Dx); Primary hypertension; Acquired hypothyroidism; Osteoarthritis of knee, unspecified laterality, unspecified osteoarthritis type Start: 09-21-2021 End: 09-21-2021 Patient encounter procedure [facility] Start: 03-06-2018 Patient encounter procedure Kodak Harding Facility:[facility] Procedures Date Procedure Procedure Detail Performing Clinician Start: 10-22-2024 Urnls dip stick/tabl et reagent auto microscopy Dr. Kodak Harding MD Work Phone: Start: 10-22-2024 X-ray of chest, PA a nd lateral views Dr. Kodak Harding MD Work Phone: Start: 09-17-2024 Adult depression screening assessment Kdoak Harding MD Work Phone: Start: 06-11-2024 CT of head without contrast Dr. Kodak Harding MD Work Phone: Start: 06-11-2024 Plain chest X-ray Dr. Conrado Harding MD Work Phone: Start: 06-11-[address] Anam Harding MD Work Phone: Start: 09-26-2023 Adult depression screening assessment Kodak Harding MD Work Phone: H/O: surgery H/O removal of cyst Dr. Kathie Harding MD Work Phone: Plan of Treatment Date Care Activity Detail Author Start: 10-02-2027 Diabetes Screening Diabetes Screening [facility] Start: 10-30-2026 Diabetes Screening Diabetes Screening [facility] Start: 10-04-2025 DIABETES SCREEN DIABETES SCREEN [facility] Start: 10-04-2025 Diabetes Screening Diabetes Screening [facility] Start: 09-17-2025 Anxiety Screening Anxiety Screening [facility] Start: 09-17-2025 Depression Screening Depression Screening [facility] Start: 03-20-2025 End: 03-20-2025 Patient encounter procedure 03/20/2025 1:10 PM EST Office Visit [facility] [address] [place] [phone] Kodak Harding MD [address] [place] [address] 6 mo f/u [facility] Comment on above: 6 mo f/u Start: 12-10-2024 Influenza vaccination [facility] Start: 11-06-2024 End: 02-05-2025 Natriuretic peptide.B prohormone N-Terminal [Mass/volume] in Serum or Plasma NT PRO BNP Lab Routine QUACH (dyspnea on exertion) Expected: 11/06/2024, Expires: 02/05/2025 [facility] Work Phone: Comment on above: Expected: 11/06/2024, Expires: Start: 10-22-2024 [facility] Start: 09-25-2024 Anxiety Screening Anxiety Screening [facility] Start: 09-25-2024 Depression Screening Depression Screening [facility] Start: 09-17-2024 End: 12-17-2024 CBC W Auto Differential panel - Blood COMPLETE BLOOD COUNT AND DIFFERENTIAL Lab Routine Screening for deficiency anemia Expected: 09/17/2024, Expires: 12/17/2024 [facility] Work Phone: Comment on above: Expected: 09/17/2024, Expires: Start: 09-17-2024 End: 12-17-2024 Comprehensive metabolic 2000 panel - Serum or Plasma COMPREHENSIVE METABOLIC PANEL Lab Routine Mixed hyperlipidemia Hypertension, essential Expected: 09/17/2024, Expires: 12/17/2024 [facility] Comment on above: Expected: 09/17/2024, Expires: Start: 09-17-2024 End: 12-17-2024 Thyrotropin [Units/volume] in Serum or Plasma THYROID STIMULATING HORMONE Lab Routine Acquired hypothyroidism Expected: 09/17/2024, Expires: 12/17/2024 [facility] Comment on above: Expected: 09/17/2024, Expires: Start: 09-17-2024 End: 09-17-2024 Patient encounter procedure 09/17/2024 1:00 PM EDT Office Visit [facility] [address] [place] [phone] Kodak Harding MD [address] [place], [place] [id number] Annual Wellness Exam [facility] Comment on above: Annual Wellness Exam Start: 07-30-2024 End: 07-30-2024 Patient encounter procedure 07/30/2024 1:00 PM EDT Office Visit [facility] [address] [place] [phone] Kodak Harding MD [address] [place], [place] [id number] 1 Month Follow Up [facility] Comment on above: 1 Month Follow Up Start: 06-27-2024 End: 06-27-2024 Patient encounter procedure 06/27/2024 1:00 PM EDT Office Visit [facility] [address] [place] [phone] Kodak Harding MD [address] [place], [place] [id number] Hospital Follow Up- Urinary Tract Infection [facility] Comment on above: Hospital Follow Up- Urinary Tract Infect ion Start: 06-15-2024 Patient discharge [facility] Start: 06-11-2024 Assessment of risk of venous thromboembolism [facility] Start: 06-11-2024 Bedrest [facility] Start: 06-11-2024 Continuous pulse oximetry [facility] Start: 06-11-2024 Insertion of catheter into peripheral vein [facility] Start: 06-11-2024 Measuring intake and output [facility] Start: 06-11-2024 Neurological assessment [facility] Start: 06-11-2024 Oxygen therapy [facility] Start: 06-11-2024 Providing care according to standard [facility] Start: 06-11-2024 Referral to service [facility] Start: 06-11-2024 Vital signs measurements [facility] Start: 06-11-2024 Following clinical pathway protocol [facility] Start: 06-11-2024 Admission procedure [facility] Start: 06-11-2024 End: 06-11-2024 [facility] Start: 06-11-2024 [facility] Start: 06-11-2024 Bacteria identified in Blood by Culture Blood Culture [facility] Start: 04-11-2024 Advance Directive Discussion Advance Directive Discussion [facility] Start: 03-19-2024 End: 03-19-2024 Patient encounter procedure 03/19/2024 1:50 PM EST Office Visit [facility] [address] [place] [phone] Kodak Harding MD [address] [place] [address] 6 Month Follow Up [facility] Comment on above: 6 Month Follow Up Start: 12-11-2023 Covid-19 Vaccine () Covid-19 Vaccine () [facility] Start: 12-11-2023 Influenza vaccination [facility] Start: 09-26-2023 End: 12-26-2023 CBC W Auto Differential panel - Blood COMPLETE BLOOD COUNT AND DIFFERENTIAL Lab Routine Screening for deficiency anemia Expected: 09/26/2023, Expires: 12/26/2023 [facility] Work Phone: Comment on above: Expected: 09/26/2023, Expires: Start: 09-26-2023 End: 12-26-2023 Comprehensive metabolic 2000 panel - Serum or Plasma COMPREHENSIVE METABOLIC PANEL Lab Routine Wellness examination Hypertension, essential Expected: 09/26/2023, Expires: 12/26/2023 [facility] Comment on above: Expected: 09/26/2023, Expires: Start: 09-26-2023 End: 12-26-2023 Lipid 1996 panel - Serum or Plasma LIPID PANEL BASIC Lab Routine Pure hypercholesterolemia Expected: 09/26/2023, Expires: 12/26/2023 [facility] Comment on above: Expected: 09/26/2023, Expires: Start: 09-26-2023 End: 12-26-2023 Thyrotropin [Units/volume] in Serum or Plasma THYROID STIMULATING HORMONE Lab Routine Acquired hypothyroidism Expected: 09/26/2023, Expires: 12/26/2023 [facility] Comment on above: Expected: 09/26/2023, Expires: Start: 03-23-2023 End: 06-22-2023 Thyrotropin [Units/volume] in Serum or Plasma TSH BLD Lab Routine Acquired hypothyroidism Expected: 03/23/2023, Expires: 06/22/2023 [facility] Work Phone: Comment on above: Expected: 03/23/2023, Expires: Start: 12-10-2022 Covid-19 Vaccine () Covid-19 Vaccine () [facility] Start: 12-10-2022 Influenza vaccination [facility] Start: 03-22-2022 End: 05-22-2022 Basic metabolic 2000 panel - Serum or Plasma BASIC METABOLIC PNL Lab Routine Primary hypertension Expected: 03/22/2022, Expires: 05/22/2022 [facility] Work Phone: Comment on above: Expected: 03/22/2022, Expires: 3 Start: 03-22-2022 End: 05-22-2022 Thyrotropin [Units/volume] in Serum or Plasma TSH BLD Lab Routine Acquired hypothyroidism Expected: 03/22/2022, Expires: 05/22/2022 [facility] Work Phone: Comment on above: Expected: 03/22/2022, Expires: 3 Start: 12-10-2021 Influenza vaccination INFLUENZA (#1) [facility] Start: 04-11-2021 ADVANCE DIRECTIVE DISCUSSION ADVANCE DIRECTIVE DISCUSSION [facility] Start: 04-11-2021 DEPRESSION ASSESSMENT DEPRESSION ASSESSMENT [facility] Start: 01-30-2021 COVID-19 VACCINE (3 - Booster for Moderna series) COVID-19 VACCINE (3 - Booster for Moderna series) [facility] Start: 07-20-2010 RSV Vaccine (1 - 1-dose 75+ series) RSV Vaccine (1 - 1-dose 75+ series) [facility] Start: 07-20-2000 BONE DENSITY BONE DENSITY [facility] Start: 07-20-2000 Pneumococcal Vaccine: 65+ (1 - PCV) Pneumococcal Vaccine: 65+ (1 - PCV) [facility] Start: 07-20-2000 Pneumococcal Vaccine: 65+ (1 of 1 - PCV) Pneumococcal Vaccine: 65+ (1 of 1 - PCV) [facility] Start: 07-20-2000 PNEUMOCOCCAL: 65+ (1 - PCV) PNEUMOCOCCAL: 65+ (1 - PCV) [facility] Start: 07-20-2000 Screening for osteoporosis Bone Density Screening [facility] Start: 1995 RSV Vaccine (1 - 1-dose 60+ series) RSV Vaccine (1 - 1-dose 60+ series) [facility] Start: 07-20-1985 Pneumococcal Vaccine: 50+ (1 of 1 - PCV) Pneumococcal Vaccine: 50+ (1 of 1 - PCV) [facility] Start: 07-20-1985 SHINGRIX VACCINE (1 of 2) SHINGRIX VACCINE (1 of 2) [facility] Start: 07-20-1980 DIABETES SCREEN DIABETES SCREEN [facility] Start: 07-20-1954 Urine microalbumin profile [facility] Start: 01-20-1936 COVID-19 VACCINE (#1) COVID-19 VACCINE (#1) [facility] Basic metabolic 2008 panel with ionized calcium - Serum or Plasma [facility] CT Chest WO contrast [facility] Measurement of respiratory function [facility] Natriuretic peptide. B prohormone N-Terminal [Mass/volume] in Serum or Plasma [facility] Patient Education Pulmonary Fibr osis ED Cellulitis ED Peripheral Edema, Bilateral [facility] Work Phone: Patient referral [facility] Work Phone: [facility] Immunizations Immunization Date Immunization Notes Care Provider Fa [facility] 12-05-2020 COVID-19 original vaccine, full dose, monovalent (MODERNA) Kodak Harding MD Work Phone: [facility] 11-07-2020 COVID-19 original vaccine, full dose, monovalent (MODERNA) Kodak Harding MD Work Phone: [facility] Payers Date Payer Category Payer Self-pay [id number] 2017 Medicare [employer]NA MEDICARE HU[employer] MEDICARE PPO [id number] 2017-Present [phone] [address] [address] [place] [address] PPO [id number] 2017 Medicare (Managed Care) 1.2. [id number] 2013 Private Health Insurance [id number] Unknown [id number] Unknown [id number] Unknown [id number] Unknown [id number] Unknown [id number] Unknown [id number] Unknown [id number] Unknown [id number] Unknown [id number] Unknown [id number] Unknown [id number] Social History Date Type Detail Facility Tobacco smoking stat us FLIS Unknown if ever smoked [facility] Work Phone: Start: 1935 Sex Assigned At Female [facility] Start: 03-22-2022 End: 11-05-2024 Tobacco smoking status FLIS Never smoked tobacco [facility] Start: 03-22-2022 Tobacco use and exposure Smoke less tobacco non-user [facility] Start: 03-22-2022 End: 09-17-2024 Alcohol intake Lifetime non-drinker (finding) [facility] Start: 1935 Sex Assigned At Not on file [facility] Start: 09-20-2022 History SDOH Alcohol Frequency 1 [facility] Start: 09-20-2022 History SDOH Alcohol Std Drinks 0 [facility] Start: 09-20-2022 History SDOH Social Connections Phone 5 [facility] Start: 09-20-2022 History SDOH Social Connections Membership 2 [facility] Start: 09-20-2022 History SDOH Social Connections Living 4 [facility] Start: 09-20-2022 History SDOH Physica l Activity DPW 3 [facility] Start: 09-20-2022 End: 09-17-2024 History of Social function [facility] Start: 09-20-2022 End: 09-17-2024 Social connection and isolation panel [facility] Do you belong to any clubs or organizations such as samaritan groups, unions, fraternal or athletic groups, or school groups? No [facility] Are you now , , , , never or living with a partner? [facility] How often to you hav e a drink containing alcohol? Never [facility] How many standard dr inks containing alcohol do you have on a typical day? Patient does not drink [facility] Do you feel stress - tense, restless, nervous, or anxious, or unable to sleep at night because your mind is troubled all the time - these days [OSQ] Only a little [facility] (I/We) worried wheth er (my/our) food would run out before (I/we) got money to buy more. Never true [facility] Start: 06-15-2024 Sex Female (finding) [facility] Goals Date Patient Goal Desired Activity /State Functional Status Date Assessment Result Facility 09-17-2024 Total score [AUDIT-C] 0 09/18/19 25 1:04 PM EDT Kathy Garrett LPN [facility] 06-15-2024 Functional status Activity Abili ty With Assist of 1 [facility] Work Phone: 06-15-2024 Functional status [facility] Work Phone: 06-13-2024 Functional status Tolerates Activity Well [facility] Work Phone: [facility] Mental Status Date Assessment Result Facility 10-22-2024 Cognitive function Level Of Cons ciousness Awake;Alert;Appropriate;Follow s Commands [facility] Work Phone: 06-15-2024 Cognitive function Voice/Name [facility] Work Phone: Clinical Notes 03-22-2022 to 11-08-2024 Telephone Encounter - Kathy Garrett LPN - 11/08/2024 9:49 AM EDTTelephone Encounter - Kathy Garrett LPN - 11/08/2024 9:49 AM EDTTelephone Encounter - Kathy Garrett LPN - 11/08/2024 9:02 AM EDT Note Date & Type Note Facility 11-08-2024 Telephone encounter Note This nurse spoke to nurse at longterm. Orders verified, Dr. Nice has now taken over patients care Kathy Garrett LPN November 08, 2024 9:50 AM [facility] 11-08-2024 Miscellaneous Notes This nurse spoke to nurse at longterm. Orders verified, Dr. Nice has now taken over patients care Kathy Garrett LPN November 08, 2024 9:50 AM Message left for admissions to phone office in regards to orders and H and P. Kathy Garrett LPN November 08, 2024 9:02 AM Althea from [facility] left message on front sight attacher voicemail stating patient was admitted to their facility today and was informed by son that Dr. Harding changed recent medications, they would like a order list faxed to [phone] and contact them by phone if any questions at [phone] Annette Nieves documented in this encounter [facility] 11-08-2024 Telephone encounter Note Message left for admissions to phone office in regards to orders and H and P. Kathy Garrett LPN November 08, 2024 9:02 AM [facility] 11-07-2024 Telephone encounter Note Althea from [facility] left message on front sight attacher voicemail stating patient was admitted to their facility today and was informed by son that Dr. Harding changed recent medications, they would like a order list faxed to [phone] and contact them by phone if any questions at [phone] Annette Nieves T [facility] 11-06-2024 Telephone encounter Note This nurse spoke with patients son. Son stated that patient is experiencing increased shortness of breath and bilateral lower extremity edema. This nurse informed of information of medication changes and upcoming lab orders. Son verbalized understanding, this nurse is to send order to [facility]. Additionally, patient does not currently see a Machine Gun Mechanic. Patient was evaluated and treated for shortness of breath at [facility] on 10-22-2024 Patient was seen in 2008 by Cardiology when diagnosed with A Fib, but did not want to go for the additional testing that they wanted her to receive. Patient does have additional testing scheduled, ordered by [employer]: Pulmonary Function Test November 09, 2024 CT Heart and Lungs November 21, 2024 Echocardiogram November 23, [address] Cardoso [employer] December 05, 2024 Patient is also moving into [facility] with [facility] [phone] tomorrow. Kathy Garrett LPN November 06, 2024 11:15 AM T [facility] 11-06-2024 Miscellaneous Notes This nurse spoke with patients son. Son stated that patient is experiencing increased shortness of breath and bilateral lower extremity edema. This nurse informed of information of medication changes and upcoming lab orders. Son verbalized understanding, this nurse is to send order to [facility]. Additionally, patient does not currently see a Machine Gun Mechanic. Patient was evaluated and treated for shortness of breath at [facility] on 10-22-2024 Patient was seen in 2008 by Cardiology when diagnosed with A Fib, but did not want to go for the additional testing that they wanted her to receive. Patient does have additional testing scheduled, ordered by [employer]: Pulmonary Function Test November 09, 2024 CT Heart and Lungs November 21, 2024 Echocardiogram November 23, [address] Cardoso [employer] December 05, 2024 Patient is also moving into [facility] with [facility] [phone] tomorrow. Kathy Garrett LPN November 06, 2024 11:15 AM Does patient have symptoms of fluid overload.? Does she have upcoming appointment with cardiology? Increase lasix to 40mg daily for 4 days if having sxs. Hold losartan/hctz.while on increased dose of lasix.recheck bnp in 6 days Images from the original note were not included. This nurse spoke to patients son. Son stated that due to lab work, [employer] Operator Dr. Cardoso would like PCP to look over Diuretics. Patient is currently taking Lasix 20 mg every day, and also Losartan - Hydrochlorothiazide 100-25 mg daily. Kathy Garrett LPN November 06, 2024 10:15 AM Patient's son Benjamín contacted the office requesting a phone call back regarding update on Erin. Pt can be reached at [phone] Annette Nieves documented in this encounter [facility] 11-06-2024 Telephone encounter Note Does patient have symptoms of fluid overload.? Does she have upcoming appointment with cardiology? Increase lasix to 40mg daily for 4 days if having sxs. Hold losartan/hctz.while on increased dose of lasix.recheck bnp in 6 days [facility] 11-06-2024 Telephone encounter Note Images from the original note were not included. This nurse spoke to patients son. Son stated that due to lab work, [employer] Operator Dr. Cardoso would like PCP to look over Diuretics. Patient is currently taking Lasix 20 mg every day, and also Losartan - Hydrochlorothiazide 100-25 mg daily. Kathy Garrett LPN November 06, 2024 10:15 AM [facility] 11-05-2024 Telephone encounter Note Patient's son Benjamín contacted the office requesting a phone call back regarding update on Erin. Pt can be reached at [phone] Annette Nieves [facility] 10-30-2024 Telephone encounter Note Last Office Visit: 09-17-2024 Next Scheduled Office Visit: 03-20-2025 Requested Prescriptions Pending Prescriptions Disp Refills ELIQUIS 5 mg tab(s) 180 tablet 3 Sig: Take 1 tablet by mouth two times a day. Patient is being seen by Pulmonology Tuesday for Oxygen needs Kathy Garrett LPN October 30, 2024 9:22 AM [facility] 10-30-2024 Miscellaneous Notes Last Office Visit: 09-17-2024 Next Scheduled Office Visit: 03-20-2025 Requested Prescriptions Pending Prescriptions Disp Refills ELIQUIS 5 mg tab(s) 180 tablet 3 Sig: Take 1 tablet by mouth two times a day. Patient is being seen by Pulmonology Tuesday for Oxygen needs Kathy Garrett LPN October 30, 2024 9:22 AM Patient's son Benjamín phoned the office requesting Rx Eliquis 5mg tablets to be sent to [facility] pharmacy in [place] on file. Son states previous refill request was cancelled by Dr. Harding per [facility] mail order, she will be out of medication. Also son wanted to know if Dr. Harding could place an order for oxygen. Son can be contacted at [phone] Next appt: 03/20/2025 Last appt: 09/17/2024 Annette Nieves documented in this encounter [facility] 10-29-2024 Telephone encounter Note Patient's son Benjamín phoned the office requesting Rx Eliquis 5mg tablets to be sent to [facility] pharmacy in [place] on file. Son states previous refill request was cancelled by Dr. Harding per [facility] mail order, she will be out of medication. Also son wanted to know if Dr. Harding could place an order for oxygen. Drake can be contacted at [phone] Next appt: 03/20/2025 Last appt: 09/17/2024 Annette Nieves [facility] 10-23-2024 Note HNO ID: [id number] Author: ARCELIA WEBER RN Service: ? Author Type: Registered Nurse Type: Progress Notes Filed: 10/23/2024 15:07 Note Text: [facility] Chart Review Provider Action/FYI Patient identified by name and date of :YES Patient identified for Care Coordination from: Notify ED Discharge report Was patient contacted?: Yes, but unable to make contact and unable to leave a voicemail Patient discharged from [place] on 10/22/24 ED Provider Discharge summary: Discharge [...] 7 Day Outreach Plan:Follow up call needed:Yes Arcelia Weber RN [facility] 10-23-2024 History of Presen t illness Narrative [facility] Chart Review Provider Action/FYI Patient identified by name and date of :YES Patient identified for Care Coordination from: Notify ED Discharge report Was patient contacted?: Yes, but unable to make contact and unable to leave a voicemail Patient discharged from [place] on 10/22/24 ED Provider Discharge summary: Discharge [...] 7 Day Outreach Plan:Follow up call needed:Yes Arcelia Weber RN documented in this encounter [facility] 10-23-2024 Note Patient Outreach ( CAC) ESTEBAN WOODS ([id number]) 1935 F T Date Time Provider Department 10/23/24 ARCELIA WEBER [facility] During your visit today, we recorded the following information about you: Arcelia Weber RN 10/23/2024 3:07 PM Signed [facility] Chart Review Provider Action/FYI Patient identified by name and date of :YES Patient identified for Care Coordination from: Notify ED Discharge report Was patient contacted?: Yes, but unable to make contact and unable to leave a voicemail Patient discharged from [place] on 10/22/24 ED Provider Discharge summary: Discharge Plan Triage Chief Complaint: Shortness of Breath Other Complaint: Edema ED Provider: Reodica,Jeyson Dx/Rx/DC Orders Clinical Impression: Pulmonary fibrosis, SOB (shortness of breath), Cellulitis of right lower extremity, Peripheral edema Instructions: Pulmonary Fibrosis, ED Cellulitis, ED Peripheral Edema, Bilateral Prescriptions: New amoxicillin-pot clavulanate 875-125 mg tablet 875 mg PO Q12H 7 Day Outreach Plan:Follow up call needed:Yes Arcelia Weber RN Allergies As of Date: 10/23/2024 Noted Allergy Reaction CIGARETTE SMOKE 09/03/2020 16 - Unknown Date Reviewed: 09/17/2024 Reviewed by: Kathy Garrett LPN - Fully Assessed 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 - ll-rg-IY-vit D-uhrle-lwz-coQ10 (DAILY MULTIVITAMIN) 200-100-500 mcg cap Take 1 capsule by mouth once daily. Problem List As Of Date 10/23/2024 Noted Resolved Atrial fibrillation (HCC) [I48.91] 08/30/2019 Hypertension, essential [I10] 02/25/2017 Hypothyroidism [E03.9] 02/25/2017 Osteoarthritis of knee [M17.9] 09/01/2017 Hyperlipidemia, unspecified [E78.5] 09/26/2023 Intracranial meningioma (HCC) [D32.0] 06/15/2024 Encounter Status:Closed by ARCELIA WEBER on 10/23/24 [facility] 10-22-2024 Discharge summary [facility] 10-22-2024 Radiology Diagnostic study note [facility] Imaging Services [address] [place] [address] [id number] Chest PA and Lateral MR#: [id number] Acct: [id number] Name: ESTEBAN WOODS Rep #: [id number] : 1935 F 89 From: Caleb Espinoza MD PCP: Dr. Kodak Harding MD Status: REG ER Study:Chest PA and Lateral Date of Exam: 10/22/24 Exam# [id number] Ordering Dr: Jeyson Mayer MD PROCEDURE: CHEST PA AND LATERAL 10/22/2024 REASON FOR EXAM: SHORTNESS OF BREATH TECHNIQUE: CHEST PA AND LATERAL COMPARISON: 06/11/2024 FINDINGS: Lungs/Pleura: Extensive bilateral coarse interstitial reticular airspace opacities likely reflecting chronic interstitial fibrotic lung changes. Superimposed infectious/inflammatory process is difficult to exclude. No pneumothorax or sizable pleural effusion. Heart/Mediastinum: Mild cardiomegaly. Tortuous and calcified thoracic aorta. Bones/Soft tissues: Multilevel degenerative changes of the spine. 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 A superimposed infectious/inflammatory process is difficult to exclude. No pleural effusions. Reading Location: [id number] CC: Dr. Jeyson Mayer MD; Dr. Kodak Harding MD ~ Stake Driver: Signed [facility] 10-22-2024 Discharge summary Note Date/Time October 22, 2024 7:28pm [facility] Medical Records Department [address] [place] [id number] Emergency Department Summary 10/22/24 MR#: [id number] Acct: [id number] Name: ESTEBAN WOODS Rep #:[id number] : 1935 89 From: Jeyson Mayer MD PCP: Dr. Kodak Harding MD Status:REG ER Location: ED HPI History of Present Illness Chief Complaint: Shortness of Breath Narrative Narrative: 89-year-old female past medical history of atrial fibrillation on Eliquis presents with her son because of increasing shortness of breath and generalized weakness that she has had for the last few months. They relate history that back in June, approximately 4 months ago she was admitted for urosepsis. She stayed in the hospital for 5 days. It affected her memory. Since then, she states that she has shortness of breath and dyspnea on exertion. She denies anyrecent fevers or chills, no cough, no dysuria or hematuria. States her legs areswollen, and there is a small ulceration on her right medial lower leg that started to turn red today. She is concerned because she feels generally weak for the past few months and short of breath with dyspnea on exertion. [facility] Medical History Hypertension Home Medications ?Medication ?Instructions ?Recorded ?Last Taken ?Type losartan 100 1 tab PO QHS Blood Pressure 06/12/24 10/21/24 History mg-hydrochlorothiazide 25 mg tablet nebivolol 5 mg tablet (Bystolic) 5 mg PO DAILY blood p ressure 06/12/24 10/21/24 History verapamil 360 mg 24 hr 360 mg PO DAILY blood pressu re 06/12/24 10/22/24 History capsule,extended release apixaban 5 mg tablet (Eliquis) 5 mg PO BID #30 tabs 10/22/24 Rx amoxicillin 875 mg-potassium 875 mg PO Q12H 7 days #14 TABLETS 10/22/24 Unknown Rx clavulanate 125 mg tablet furosemide 20 mg tablet 20 mg PO DAILY 10/22/2410/09 History levothyroxine 125 mcg tablet 125 mcg PO DAILY 10/22/24 10/22/24 History (Euthyrox) Allergy/AdvReac Type Severity Reaction Status Date / Time No Known Allergies Allergy Verified 10/22/24 14:56 Social History Smoking Status: Never smoker ROS ROS ED ROS Narrative Review of systems positive for generalized weakness, shortness of breath and dyspnea on exertion for months. No recent fevers or chills, no nausea or vomiting. Positive leg swelling over the last few months as well. Small ulcer on right lower leg that reddened today. No dysuria or hematuria. EXAM Physical Exam Narrative Exam Narrative: Afebrile. Vital signs noted. Nontoxic-appearing. Cardiovascular examination reveals regular rate and rhythm. Lungs are clear to auscultation bilaterally. Abdomen is soft and nontender with normal active bowel sounds. No guarding or rebound. Neurological examination is nonfocal, nonlateralizing. Bilateral symmetric pedal edema at +1 pitting. Positive ulceration with minimal surrounding erythema right lower extremity. No crepitance. Awake, alert, oriented. Const Vital Signs: 10/22/24 14:54 10/22/24 16:00 10/22/24 16:12 Temperature 98.2 F Temperature Source Oral Pulse Rate 116 H Respiratory Rate 18 Respiratory Effort Short of Breath Labored Short of Breath Respiratory Depth Shallow Blood Pressure 120/105 H Blood Pressure Mean 110 Pulse Ox 94 Oxygen Delivery Method Room Air Room Air 10/22/24 17:47 10/22/24 19:00 Temperature Temperature Source Pulse Rate 99 94 Respiratory Rate 24 H 19 H Respiratory Effort Respiratory Depth Blood Pressure 137/93 H Blood Pressure Mean 107 Pulse Ox 92 90 Oxygen Delivery Method Room Air Room Air MDM MDM MDM Narrative Medical decision making narrative: Differential diagnosis includes but not limited to pneumonia versus pneumothoraxversus CHF. She has had 4 months of increasing shortness of breath and dyspnea on exertion. History and physical does not support pneumonia or pneumothorax. Regarding her generalized weakness she may have dehydration or other electrolyteimbalance. I have low concern for pulmonary embolism because she is already being treated with Eliquis 5 mg twice a day. In discussion with the patient andher son, they state that he visits frequently, and they decided today that they should do more investigation of her chronic problems that she has had for the last few months instead of waiting to see a primary care provider. Comprehensive workup was pursued. EKG was obtained and interpreted by myself independently as atrial fibrillation with PVCs that is rate controlled at [address] changes. No STEMI. WBC count normal at 9.9 with hemoglobin 13.9, hematocrit 42.9, platelet count normal at 234. Electrolyte panel shows BUN slightly elevated at 42 with creatinine 1.18. LFTs grossly unremarkable. BNP elevated at 3953 but is been higher when compared to prior labs. Chest x-ray interpreted by myself independently shows fibrotic changes of the interstitial areas. No pneumothoraxor pneumonia. When compared to prior, there is not significant change. I reviewed the radiology report which confirms my independent interpretation. I do feel that her shortness of breath for months may be more secondary to fibrotic changes. She will be referred to pulmonology. Review of her urinalysis shows no evidence of infection. However given the cellulitis on her right lower extremity, she will be given her first dose of Augmentin and given a course of therapy for the next week. She can follow-up with her primary care provider. She was also referred to wound care/hyperbaricsas needed. At this point in time, I do feel she can be discharged to follow-up. She is motivated for discharge. Return instructions to the emergency department were reviewed. Disposition is discharged home in stable condition. History & Record Review Discussion w/independent historian: Patient and Family Lab Data Attestation: I reviewed the patient's lab results. Labs: Laboratory Results - last 24 hr 10/22/24 10/22/24 15:56 17:39 WBC 9.9 RBC 4.20 Hgb 13.9 Hct 42.9 MCV 102.1 H MCH 33.1 H MCHC 32.4 RDW Std Deviation 53.2 H RDW Coeff of Hong 14.2 Plt Count 234 MPV 8.8 Immature Gran % (Auto) 0.600 Neut % (Auto) 73.2 H Lymph % (Auto) 17.8 L [place] % (Auto) 7.1 Eos % (Auto) 0.8 Baso % (Auto) 0.5 Absolute Neuts (auto) 7.3 Absolute Lymphs (auto) 1.77 Nucleated RBC % 0 Sodium 137 Potassium 3.6 Chloride 98 Carbon Dioxide 25.8 Anion Gap 13 BUN 42 H Creatinine 1.18 Est GFR (MDRD) Non-Af 44 L BUN/Creatinine Ratio 35.3 H Glucose 84 Calcium 10.4 Total Bilirubin 1.29 AST 27 ALT 28 Alkaline Phosphatase 84 NT pro BNP II 3953 H Total Protein 7.7 Albumin 3.8 Globulin 4.0 Albumin/Globulin Ratio 0.9 Urine Color Yellow Urine Clarity Sl. Cloudy Urine pH 6.0 Ur Specific [place] 1.010 Urine Protein 30 H Urine Glucose (UA) Normal Urine Ketones Negative Urine Occult Blood Negative Urine Nitrite Negative Urine Bilirubin Negative Urine Urobilinogen 1 H Ur Leukocyte Esterase 25 H Urine RBC 0-5 SEEN Urine WBC 0-5 SEEN Ur Squamous Epith Cells 0-5 SEEN Urine Bacteria 2+ Urine Mucus 0 SEEN Radiography Chest X-Ray - ED: Read by ED Physician, Read by Radiologist and Chronic Changes Diagnostic Testing: Clinical Impression(s) from Imaging Studies Chest X-Ray 10/22/24 16:20 IMPRESSION: Extensive bilateral coarse interstitial fibrotic lung changes. A superimposed infectious/inflammatory process is difficult to exclude. No pleural effusions. Reading Location: [facility] Discharge Plan Triage Chief Complaint: Shortness of Breath Other Complaint: Edema ED Provider: Jeyson Mayer Dx/Rx/DC Orders Clinical Impression: Pulmonary fibrosis, SOB (shortness of breath), Cellulitis of right lower extremity, Peripheral edema Instructions: Pulmonary Fibrosis, ED Cellulitis, ED Peripheral Edema, Bilateral Prescriptions: New amoxicillin-pot clavulanate 875-125 mg tablet 875 mg PO Q12H 7 Days Qty: 14 0RF No Action losartan-hydrochlorothiazide 100-25 mg tablet 1 tab PO QHS nebivolol [Bystolic] 5 mg tablet 5 mg PO DAILY verapamil 360 mg capsule,ext rel. pellets 24 hr 360 mg PO DAILY Eliquis 5 mg Tablet 5 mg PO BID Qty: 30 0RF levothyroxine [Euthyrox] 125 mcg tablet 125 mcg PO DAILY furosemide 20 mg Tablet 20 mg PO DAILY Primary Care Provider: Kodak Harding Referrals: Tamir Cardoso DO [Med Staff - Active Staff] - As soon as possible Kodak Harding MD [Primary Care Provider] - 3-5 Days if not improving Hyperbaric Medicine,[facility] and [Non-Staff] - As Needed Activity Restrictions/Additional Instructions: Antibiotics as directed. Return with fever, increased redness of right lower extremity, new or worsening symptoms. Follow-up with pulmonology as soon as possible. Print Language: Bulgarian Disposition Disposition: Home, Self Care What to do if you have Problems For any increased pain, shortness of breath, bleeding, nausea or vomiting, chestpain, or any unexpected problems, contact your Primary Care Provider. Call [facility] ([phone]) or report to the closest Emergency Room. Call 911 if necessary. 10/22/241927 <Electronically signed by Jeyson Mayer MD> Cosigner Signature (if applicable): CC: Dr. Kodak Harding MD ~ Signed [facility] Work Phone: 1(290) 190-980506-09-2025 Instructions* Patient Instructions* Kodak Harding MD - 09/17/2024 2:13 PM EDT Screening schedule The following prevention plan is [...] review all the medicines you take, even vwtd-ryv-qbtxyxr medicines. As you get older, the way medicines work in your body can change. Some medicines, or combinations of medicines, can make you sleepy or dizzy andcan cause you to fall. 3. Have your [...] apply if you have certain medical conditions. [facility] NoteHNO ID: [id number] Author: KODAK HARDING MD Service: ? Author Type: Physician Type: Progress Notes Filed: 09/17/2024 14:13 Note Text: hKai Woods is an 89-year-old female Presents today [...] 2 tablets by mouth daily at bedtime. kk-gq-MZ-vit S-ckwxl-juy-coQ10 (DAILY MULTIVITAMIN) 200-100-500 mcg cap Take 1 [...] (Temporal) Resp 18 Ht 157.5 cm (5' 2) Wt 68.5 kg (151 lb) SpO2 94% [...] due to good balance and a history (more content not included)...[facility]06-09-2025 History of Present illness Narrative* Kodak Harding MD - 09/17/2024 2:10 PM EDT Images from the original note were not included. Subjective Erin Woods is an 89-year-old female [...] 2 tablets by mouth daily at bedtime. sy-mh-PI-vit W-xlbxr-cww-coQ10 (DAILY MULTIVITAMIN) 200-100-500 mcg cap Take 1 [...] Size: Regular Adult) Pulse 90 Temp 36.1 C (96.9 F) (Temporal) Resp 18 Ht 157.5 cm (5' 2) Wt 68.5 kg (151 lb) SpO2 94% BMI 27.62 kg/m Physical Exam GENERAL: NAD, alert and oriented. [...] good cognition to operate a manual wheelchair.Additional featurespatient would need is leg rests. The progression [...] (I10) - Blood pressure is well-controlled. 8. 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 of anticoagulants (Z79.01) - Continue [...] to anticoagulant therapy. - Avoid narcotic analgesics. Kodak Harding MD 09/17/2024 Recording using [employer] software for draft documentation of the visit was discussed with the patient/authorized manufacturing sales representative; all questions welcomed and answered. Patient/authorized manufacturing sales representative agreed to proceed Medicare Health Risk [...] Functional Observation Was the patient's Timed Up & Go test unsteady or >= 12 seconds? No Advance Care Planning Surrogate decision maker documented and/or advance directives scanned in chart Measurements BP 118/76 (BP Site: Left Arm, BP Position: Sitting, BP Cuff Size: Regular Adult) Pulse 90 Temp 36.1 C (96.9 F) (Temporal) Resp 18 Ht 157.5 cm (5' 2) Wt 68.5 kg (151 lb) SpO2 94% BMI 27.62 kg/m Vision Screening: Follows with optometry/ophthalmology Assessment/Plan Medicare annual wellness visit, subsequent (Z00.00) - Counseled on healthy diet and regular exercise - Fall avoidance information provided - Personalized prevention plan provided * Kathy Garrett LPN - 09/17/2024 1:00 PM EDT DUE HEALTH MAINTENANCE DTaP,Tdap,Td Vaccine(1 - Tdap) declined Shingrix Vaccine(1 of 2) declined Pneumococcal Vaccine: 50+(1 of 1 - PCV) declined Bone Density Screening RSV Vaccine(1 - 1-dose 75+ series) declined Covid-19 Vaccine(3 - season) declined Esteban Naveed Woods is [...] good cognition to operate a manual wheelchair.Additional featurespatient would need is leg rests. The progression of her condition relatively nonprogressive. Patient has a Son who is lives/assists patient, and is able to help patient with ambulation. The patient would benefit from a manual wheelchair. ave any questions or concerns. No refills needed Kathy Garrett LPN September 17, 2024 1:09 PM documented in [facility] encounter[facility]06-[facility]-2025 NoteHNO ID: [id number] Author: KATHY GARRETT LPN Service: ? Author Type: LICENSED NURSE Type: Progress Notes Filed: 09/17/2024 14:13 Note Text: DUE HEALTH MAINTENANCE DTaP,Tdap,Td Vaccine(1 - Tdap) declined Shingrix Vaccine(1 of 2) declined Pneumococcal Vaccine: 50+(1 of 1 - PCV) declined Bone Density Screening RSV Vaccine(1 - 1-dose 75+ series) declined Covid-19 Vaccine(3 - season) declined Esteban Woods is here today to be evaluated [...] Kathy Garrett LPN September 17, 2024 1:09 [facility]04-21-2025 NoteHNO ID: [id number] Author: KODAK HARDING MD Service: ? Author Type: Physician [...] 2 tablets by mouth daily at bedtime. sm-bc-YI-vit S-kwlsb-qzx-coQ10 (DAILY MULTIVITAMIN) 200-100-500 mcg cap Take 1 [...] (Temporal) Resp 20 Ht 157.5 cm (5' 2) Wt 71.7 kg (158 lb) SpO2 94% [...] 1. Paroxysmal atrial fibrillation (HCC) (I48.0) 2. 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 of anticoagulants (Z79.01) - No [...] Acquired hypothyroidism (E03.9) 5. Mixed hyperlipidemia (E78.2) Kodak Harding MD 07/30/2024 Recording using [employer] software for draft documentation of the visit was discussed with the patient/authorized manufacturing sales representative; all questions welcomed and answered. Patient/authorized manufacturing sales representative agreed to [facility]04-21-2025 History of Present illness Narrative* Kodak Harding MD - 07/30/2024 1:53 PM EDT Khai Khan is an 89-year-old female with a history of atrial fibrillation, presenting for follow-up. Atrial Fibrillation: - Denies dyspnea, pedal edema, or palpitations. - Not taking Lasix as she hasn't felt the need. - Currently taking Eliquis; experienced a delay in receiving prescriptions from June 27 to . - Ran out of Eliquis during this [...] 2 tablets by mouth daily at bedtime. av-vf-VB-vit R-pcvjt-uae-coQ10 (DAILY MULTIVITAMIN) 200-100-500 mcg cap Take 1 [...] Size: Regular Adult) Pulse 68 Temp 36.3 C (97.3 F) (Temporal) Resp 20 Ht 157.5 cm (5' 2) Wt 71.7 kg (158 lb) SpO2 94% BMI 28.90 kg/m Physical Exam GENERAL: NAD, alert and oriented. [...] 1. Paroxysmal atrial fibrillation (HCC) (I48.0) 2. 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 of anticoagulants (Z79.01) - No [...] Acquired hypothyroidism (E03.9) 5. Mixed hyperlipidemia (E78.2) Kodak Harding MD 07/30/2024 Recording using ambient [employer] software for draft documentation of the visit was discussed with the patient/authorized manufacturing sales representative; all questions welcomed and answered. Patient/authorized manufacturing sales representative agreed to proceed * Kathy Garrett LPN - 07/30/2024 1:00 PM EDT Patient is in office for follow up for chronic medical conditions. Patient was last seen in office on 06-27-2024 following a hospital admission Patient was advised: Persistent atrial fibrillation (HCC) I48.19 RVR resolved. Continue beta-marilyn. Monitor symptoms Acute lower UTI N39.0 Resolved. 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 Denies UTI symptoms. Patient states that edema has been decreased. No refills needed Kathy Garrett LPN July 30, 2024 1:01 PM documented in this encounterNorwalk [facility]04-21-2025 NoteHNO ID: [id number] Author: KATHY GARRETT LPN Service: ? Author [...] to reduce risk of recurrence of UTI 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 Z79.01 Eliquis twice daily Acute heart failure with mildly reduced ejection fraction (HFmrEF, 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) I50.21 Improved on Lasix Patient has been experiencing shortness of breath after ambulation. Denies UTI symptoms. Patient states that edema has been decreased. No refills needed Kathy Garrett LPN July 30, 2024 1:01 PM[facility]03-27-2025 NoteHNO ID: [id number] Author: ARCELIA WEBER RN Service: ? Author Type: Registered Nurse Type: Progress Notes Filed: 07/05/2024 13:45 Note Text: Unable to make contact Provider Action/FYI Patient identified by name and date of : YES An attempt was made to contact: Patient Was a voicemail left? No unable to leave a voicemail Outreach Plan: Follow up call needed:No Arcelia Weber RNOregon [facility]03-27-2025 History of Present illness Narrative* Arcelia Weber RN - 07/05/2024 1:42 PM EDT Unable to make contact Provider Action/FYI Patient identified by name and date of : YES An attempt was made to contact: Patient Was a voicemail left? No unable to leave a voicemail Outreach Plan: Follow up call needed:No Arcelia Weber RN documented in this encounterNorwalk [facility] Hospital03-27-2025 NotePatient Outreach (MRCAC) ESTEBAN WOODS ([id number]) 1935 F CHT Date Time Provider Department 07/05/24 [facility] During your visit today, we recorded the following information about you: Arcelia Weber RN 07/05/2024 1:45 PM Signed Unable to make contact Provider Action/FYI Patient identified by name and date of : YES An attempt was made to contact: Patient Was a voicemail left? No unable to leave a voicemail Outreach Plan: Follow up call needed:No Arcelia Weber RN Allergies As of Date: 07/05/2024 [...] tablets by mouth daily at bedtime. - uq-zk-MH-vit N-olnnq-ssy-coQ10 (DAILY MULTIVITAMIN) 200-100-500 mcg cap Take 1 capsule by mouth once daily. Problem List As Of Date 07/05/2024 Noted Resolved Atrial fibrillation (HCC) [I48.91] 08/30/2019 Hypertension, essential [I10] 02/25/2017 Hypothyroidism [E03.9] 02/25/2017 Osteoarthritis of knee [M17.9] 09/01/2017 Encounter Status:Closed by ARCELIA WEBER on 07/05/24[facility] 06-27-2024 NoteHNO ID: [id number] Author: KODAK HARDING MD Service: ? Author Type: Physician Type: Progress Notes Filed: 06/27/2024 14:08 Note Text: Subjective Esteban Woods is a 88 year old female.Patient is in office for a Transition of Care Visit following recent hospital stay. Patient was evaluated and treated at [facility] from 06-11-2024 to 06-15-2024 for UTI with [...] 2 tablets by mouth daily at bedtime. ny-ic-YN-vit X-rdzbc-saa-coQ10 (DAILY MULTIVITAMIN) 200-100-500 mcg cap Take 1 [...] (Temporal) Resp 18 Ht 157.5 cm (5' 2) Wt 69.4 kg (153 lb) SpO2 95% [...] organism, unspecified whether acute organ dysfunction present ([facility]) A41.9 Resolved 4. Acute respiratory failure with hypoxia ([facility]) J96.01 Resolved 5. Acute lower UTI N39.0 Resolved. Discussed hygiene to reduce risk of recurrence of UTI 6. Acute heart failure with mildly reduced ejection fraction (HFmrEF, 41-49%) ([facility]) I50.21 Improved on Lasix 7. prison current use of anticoagulant therapy Z79.01 Eliquis twice daily Kodak Harding MD June 27, 2024 06/27/2024[facility]03-[facility] History of Present illness Narrative* Kodak Harding MD - 06/27/2024 1:52 PM EDT Subjective Esteban Woods is a 88 year old female.Patient is in office for a Transition of Care Visit following recent hospital stay. Patient was evaluated and treated at [facility] from 06-11-2024 to 06-15-2024 for UTI with [...] PAST MEDICAL HISTORY Diagnosis Date Atrial fibrillation ([facility]) 08/30/2019 Hypertension 02/25/2017 Hypothyroidism 02/25/2017 Osteoarthritis of [...] 2 tablets by mouth daily at bedtime. ll-gb-FV-vit C-qfhya-riy-coQ10 (DAILY MULTIVITAMIN) 200-100-500 mcg cap Take 1 [...] BP Cuff Size: Regular Adult) Pulse 105 Temp36.1 C (96.9 F) (Temporal) Resp 18 Ht 157.5 cm (5' 2) Wt 69.4 kg (153 lb) SpO2 95% BMI 27.98 kg/m Physical Exam Vitals reviewed. Constitutional: Appearance: Normal [...] organism, unspecified whether acute organ dysfunction present ([facility]) A41.9 Resolved 4. Acute respiratory failure with hypoxia ([facility]) J96.01 Resolved 5. Acute lower UTI N39.0 Resolved. Discussed hygiene to reduce risk of recurrence of UTI 6. Acute heart failure with mildly reduced ejection fraction (HFmrEF, 41-49%) ([facility]) I50.21 Improved on Lasix 7. 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 Z79.01 Eliquis twice daily Kodak Harding MD June 27, 2024 06/27/2024 * Kathy Garrett LPN - 06/27/2024 1:00 PM EDT Patient is in office for a Transition of Care Visit following recent hospital stay. Patient was evaluated and treated at [facility] from 06-11-2024 to 06-15-2024 for UTI with urosepsis, Afib with RVR, Acute on chronic respiratory failure. Discharge medications: Furosemide 20 mg tablet BID Eliquis 5 mg BID Cephalexin 500 mg BID x 2 days Aspirin discontinued No changes in other medications Patient states she had altered mental status, therefore went to the hospital. Patient states she is doing well and feeling better Kathy Garrett LPN June 27, 2024 1:03 PM documented in this encounterNorwalk [facility]03-19-2025 NoteHNO ID: [id number] Author: KATHY GARRETT LPN Service: ? Author Type: LICENSED NURSE Type: Progress Notes Filed: 06/27/2024 14:08 Note Text: Patient is in office for a Transition of Care Visit following recent hospital stay. Patient was evaluated and treated at [facility] from 06-11-2024 to 06-15-2024 for UTI with [...] is doing well and feeling better Kathy GarrettMATI June 27, 2024 1:03 [facility]03-11-2025 NoteHNO ID: [id number] Author: ARCELIA WEBER RN Service: ? Author Type: Registered Nurse Type: Progress Notes Filed: 06/19/2024 14:05 Note Text: TRANSITION CARE MANAGEMENT (TCM) FOLLOW-UP NOTE Provider Action/FYI Patient identified by name and date of : YES Spoke to patient Discharge Network Status: Mlf-gv-Qkxcxyz (OON) Discharge Summary: Patient answered the phone, I introduced myself and patient then hung up the phone. Casino Shift Manager plan for next outreach: Will follow up yes LOUISE Education Ordered -: No Arcelia Weber RN June 19, 2024 2:04 [facility]03-11-2025 History of Present illness Narrative* Arcelia Weber RN - 06/19/2024 1:46 PM EDT TRANSITION CARE MANAGEMENT (TCM) FOLLOW-UP NOTE Provider Action/FYI Patient identified by name and date of : YES Spoke to patient Discharge Network Status: Klp-td-Vugflwx (OON) Discharge Summary: Patient answered the phone, I introduced myself and patient then hung up the phone. Casino Shift Manager plan for next outreach: Will follow up yes LOUISE Education Ordered -: No Arcelia Weber RN June 19, 2024 2:04 PM documented in this encounterNorwalk [facility]03-11-2025 NotePatient Outreach (MRCAC) ESTEBAN WOODS ([id number]) 1935 F CHT Date Time Provider Department 06/19/24 ARCELIA WEBER MRCAC During your visit today, we recorded the following information about you: Arcelia Weber RN 06/19/2024 2:05 PM Addendum TRANSITION CARE MANAGEMENT (TCM) FOLLOW-UP NOTE Provider Action/FYI Patient identified by name and date of : YES Spoke to patient Discharge Network Status: Kiz-rd-Rvqdaps (OON) Discharge Summary: Patient answered the phone, I introduced myself and patient then hung up the phone. Casino Shift Manager plan for next outreach: Will follow up yes LOUISE Education Ordered -: No Arcelia Weber RN June 19, 2024 2:04 PM [...] 81 mg by mouth once daily. - xw-uq-PJ-vit U-ouxad-ywu-coQ10 (DAILY MULTIVITAMIN) 200-100-500 mcg cap Take 1 capsule by mouth once daily. Problem List As Of Date 06/19/2024 Noted Resolved Atrial fibrillation (HCC) [I48.91] 08/30/2019 Hypertension, essential [I10] 02/25/2017 Hypothyroidism [E03.9] 02/25/2017 Osteoarthritis of knee [M17.9] 09/01/2017 Encounter Status:Closed by ARCELIA WEBER on 06/19/24[facility] 06-18-2024 NoteHNO ID: [id number] Author: ARCELIA WEBER RN Service: ? Author Type: Registered Nurse Type: Progress Notes Filed: 06/18/2024 12:18 Note Text: Unable to make contact Provider Action/FYI Patient identified by name and date of : YES An attempt was made to contact: Patient Was a voicemail left? No unable to leave a voicemail Outreach Plan: Follow up call needed:No Arcelia Weber [facility]NO[facility]03-10-2025 History of Present illness Narrative* Arcelia Weber RN - 06/18/2024 12:17 PM EDT Unable to make contact Provider Action/FYRobin Patient identified by name and date of : YES An attempt was made to contact: Patient Was a voicemail left? No unable to leave a voicemail Outreach Plan: Follow up call needed:No Arcelia Weber RN documented in this encounterNorwalk [facility] Hospital03-10-2025 NotePatient Outreach (MRCAC) ESTEBAN WOODS ([id number]) 1935 F T Date Time Provider Department 06/18/24 ARCELIA WEBER [facility] During your visit today, we recorded the following information about you: Arcelia Weber RN 06/18/2024 12:18 PM Signed Unable to make contact Provider Action/FYRobin Patient identified by name and date of : YES An attempt was made to contact: Patient Was a voicemail left? No unable to leave a voicemail Outreach Plan: Follow up call needed:No Arcelia Weber RN Allergies As of Date: 06/18/2024 [...] 81 mg by mouth once daily. - ad-ta-ZT-vit Z-ngyll-ztk-coQ10 (DAILY MULTIVITAMIN) 200-100-500 mcg cap Take 1 capsule by mouth once daily. Problem List As Of Date 06/18/2024 Noted Resolved Atrial fibrillation (HCC) [I48.91] 08/30/2019 Hypertension, essential [I10] 02/25/2017 Hypothyroidism [E03.9] 02/25/2017 Osteoarthritis of knee [M17.9] 09/01/2017 Encounter Status:Closed by ARCELIA WEBER on 06/18/24[facility] 06-[facility] Discharge summary Author Aster Ramsey [facility] Note Date/Time June 15, 2024 1:58 pm [facility] Medical Records Department [address] [place] [address] Discharge Summary 06/15/24 1343 MR#: [id number] Acct: [id number] Name: ESTEBAN WOODS Rep #:[id number] : 1935 88 From: Aster Ramsey MD PCP: Dr. Kodak Harding MD Status:ADM IN Location: [place] [address] Providers Date of Admission: 06/11/24 Primary Care Physician: Dr. Kodak Harding MD Reason For Visit: URINARY TRACT INFETION WITH SEPSIS, CHANGE IN Diagnosis Discharge Diagnosis (1) Urinary tract infection: Status: Acute Code(s): N39.0 - Urinary tract infection, site not specified Plan 1. #UTI with urosepsis #Urine cultures positive for E. coli (sensitive to ceftriaxone) -Received 5 days of IV ceftriaxone, will give p.o. cephalexin for 2 days -Afebrile, continue to monitor 2. 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 -Continue Eliquis -Close monitoring of heart rate -Metoprolol tartrate 50 mg twice daily 3. #Acute on chronic respiratory failure -Likely because of #2 -On room air, saturation is better -Continue to monitor, saturation around 92% at this time DVT prophylaxis: On Eliquis Discharge planning: Needs PT/OT/case management, can be transferred to PCU/MS Medications at Discharge Home Medications levothyroxine 112 mcg tablet 112 mcg PO DAILY thyroid 06/12/24 losartan 100 mg-hydrochlorothiazide 25 mg tablet 1 tab PO QHS Blood Pressure 06/12/24 nebivolol 5 mg tablet (Bystolic) 5 mg PO DAILY blood pressure 06/12/24 verapamil 360 mg 24 hr capsule,extended release 360 mg PO DAILY blood pressure 06/12/24 apixaban 5 mg tablet (Eliquis) 5 mg PO BID #30 tabs 06/15/24 cephalexin 500 mg capsule 500 mg PO BID 2 days #4 caps 06/15/24 furosemide 20 mg tablet 20 mg PO BIDLX 30 days #60 tabs 06/15/24 Hospital Course Operations None Procedures None Summary of Care Provided Minutes Spent on Discharge: 20 Hospital Course: 88-year-old female is admitted for concerns regarding UTI with urosepsis, associated acute decompensated heart failure in the setting of ongoing A-fib with RVR. . Her echocardiogram shows severe tricuspid regurgitation and elevated pulmonary systolic pressures so she has likely secondary pulmonary hypertension contributing to her symptoms. Started on IV Lasix and with negative fluid balance IV saturation improved and she was off oxygen. She is symptomatically doing much better, feels eager to go home and has good family support at home. She has some MARITZA after initiation of Lasix, she is encouraged to follow-up with her PCP closely after discharge She was previously on aspirin 325 mg daily, we will change her to Eliquis 5 mg twice daily. 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 Physical Exam Const alert and oriented x3 General Appearance: cooperative HEENT normocephalic Eyes PERRL Neck no lymphadenopathy Resp normal respiratory effort Resp Narrative: Left intra-scapular crepitations Cardio regular rate Cardio Narrative: Irregular rhythm GI normal to inspection, nondistended, normoactive bowel sounds Extremity normal to inspection and full ROM Skin no rashes or lesions noted Neuro oriented x3, CN's II-XII intact bilaterally, moves all extremities and no focal motor deficits Psych affect normal Weight / BMI Weight Weight: 153 lb 3.54 oz Body Mass Index (BMI) 28.0 ABG / Lab / Microbiology Data 06/14/24 10:20 06/14/24 10:20 Microbiology: Microbiology 06/11/24 18:50 Urine, Clean Catch Urine Culture - Final Presumptive E. coli Aerococcus sanguinicola D/C Instructions DC O2, CPAP, BIPAP Needs Home O2 Discharge instructions: No Meaningful Use Info Meaningful Use Meaningful Use Diagnoses (Choose all that apply): None applicable Ischemic Stroke Statin Dosing Therapy Reference: STATIN DOSE THERAPY REFERENCE: * Patients > 75 years receive moderate or high dose statin therapy. * Patients 75 years or YOUNGER should receive HIGH intensity statin dose unless contraindicated. You will be required to document reason for non-treatment if statin daily dose does not meet guidelines. HIGH DOSE STATIN THERAPY DAILY Atorvastatin > than or = to 40 mg Rosuvastatin > than or = to 20 mg Amlodipine + Atorvastatin > than or = to 2.5/40 mg Ezetimibe + Simvastatin 10/80 mg Simvastatin 80mg Discharge Plan Admission Admit Date/Time: 06/11/24 22:45 Primary Reason for Your Visit: Urinary tract infection Attending Provider: Aster Ramsey Primary Care Provider: Kodak Harding Consulting Providers: Mio Benitez; Junaid Travis Discharge Orders/Prescriptions Prescriptions: New furosemide 20 mg Tablet 20 mg PO BIDLX 30 Days Qty: 60 0RF Eliquis 5 mg Tablet 5 mg PO BID Qty: 30 0RF cephalexin 500 mg capsule 500 mg PO BID 2 Days Qty: 4 0RF Continued levothyroxine 112 mcg tablet 112 mcg PO DAILY losartan-hydrochlorothiazide 100-25 mg tablet 1 tab PO QHS nebivolol [Bystolic] 5 mg tablet 5 mg PO DAILY verapamil 360 mg capsule,ext rel. pellets 24 hr 360 mg PO DAILY Discontinued aspirin 325 mg tablet 325 mg PO QHS Referrals / Follow Up: Kodak Harding MD [Primary Care Provider] - Disposition Disposition (needs filled in before D/C Order can be placed): Home, Self Care 06/15/24 [id number] <Electronically signed by Aster Ramsey MD> Cosigner Signature (if applicable): CC: Dr. Aster Ramsey MD; Dr. Kodak Harding MD~ Signed [facility] Work Phone: [phone]) 949-772003-07-2025 Discharge summary [facility] Medical Records Department [address] [place] [address] Discharge Summary 06/15/24 1343 MR#: [id number] Acct: [id number] Name: ESTEBAN WOODS Rep #:[id number] : 1935 88 From: Aster Ramsey MD PCP: Dr. Kodak Harding MD Status:ADM IN Location: [place] [address] Providers Date of Admission: 06/11/24 Primary Care Physician: Dr. Kodak Harding MD Reason For Visit: URINARY TRACT INFETION WITH SEPSIS, CHANGE IN Diagnosis Discharge Diagnosis (1) Urinary tract infection: Status: Acute Code(s): N39.0 - Urinary tract infection, site not specified Plan 1. #UTI with urosepsis #Urine cultures positive for E. coli (sensitive to ceftriaxone) -Received 5 days of IV ceftriaxone, will give p.o. cephalexin for 2 days -Afebrile, continue to monitor 2. 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 -Continue Eliquis -Close monitoring of heart rate -Metoprolol tartrate 50 mg twice daily 3. #Acute on chronic respiratory failure -Likely because of #2 -On room air, saturation is better -Continue to monitor, saturation around 92% at this time DVT prophylaxis: On Eliquis Discharge planning: Needs PT/OT/case management, can be transferred to PCU/MS Medications at Discharge Home Medications levothyroxine 112 mcg tablet 112 mcg PO DAILY thyroid 06/12/24 losartan 100 mg-hydrochlorothiazide 25 mg tablet 1 tab PO QHS Blood Pressure 06/12/24 nebivolol 5 mg tablet (Bystolic) 5 mg PO DAILY blood pressure 06/12/24 verapamil 360 mg 24 hr capsule,extended release 360 mg PO DAILY blood pressure 06/12/24 apixaban 5 mg tablet (Eliquis) 5 mg PO BID #30 tabs 06/15/24 cephalexin 500 mg capsule 500 mg PO BID 2 days #4 caps 06/15/24 furosemide 20 mg tablet 20 mg PO BIDLX 30 days #60 tabs 06/15/24 Hospital Course Operations None Procedures None Summary of Care Provided Minutes Spent on Discharge: 20 Hospital Course: 88-year-old female is admitted for concerns regarding UTI with urosepsis, associated acute decompensated heart failure in the setting of ongoing A-fib with RVR. . Her echocardiogram shows severe tricuspid regurgitation and elevated pulmonary systolic pressures so she has likely secondary pulmonary hypertension contributing to her symptoms. Started on IV Lasix and with negative fluid balance IV saturation improved and she was off oxygen. She is symptomatically doing much better, feels eager to go home and has good family support at home. She has some MARITZA after initiation of Lasix, she is encouraged to follow-up with her PCP closely after discharge She was previously on aspirin 325 mg daily, we will change her to Eliquis 5 mg twice daily. 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 Physical Exam Const alert and oriented x3 General Appearance: cooperative HEENT normocephalic Eyes PERRL Neck no lymphadenopathy Resp normal respiratory effort Resp Narrative: Left intra-scapular crepitations Cardio regular rate Cardio Narrative: Irregular rhythm GI normal to inspection, nondistended, normoactive bowel sounds Extremity normal to inspection and full ROM Skin no rashes or lesions noted Neuro oriented x3, CN's II-XII intact bilaterally, moves all extremities and no focal motor deficits Psych affect normal Weight / BMI Weight Weight: 153 lb 3.54 oz Body Mass Index (BMI) 28.0 ABG / Lab / Microbiology Data 06/14/24 10:20 06/14/24 10:20 Microbiology: Microbiology 06/11/24 18:50 Urine, Clean Catch Urine Culture - Final Presumptive E. coli Aerococcus sanguinicola D/C Instructions DC O2, CPAP, BIPAP Needs Home O2 Discharge instructions: No Meaningful Use Info Meaningful Use Meaningful Use Diagnoses (Choose all that apply): None applicable Ischemic Stroke Statin Dosing Therapy Reference: STATIN DOSE THERAPY REFERENCE: * Patients > 75 years receive moderate or high dose statin therapy. * Patients 75 years or YOUNGER should receive HIGH intensity statin dose unless contraindicated. You will be required to document reason for non-treatment if statin daily dose does not meet guidelines. HIGH DOSE STATIN THERAPY DAILY Atorvastatin > than or = to 40 mg Rosuvastatin > than or = to 20 mg Amlodipine + Atorvastatin > than or = to 2.5/40 mg Ezetimibe + Simvastatin 10/80 mg Simvastatin 80mg Discharge Plan Admission Admit Date/Time: 06/11/24 22:45 Primary Reason for Your Visit: Urinary tract infection Attending Provider: Aster Ramsey Primary Care Provider: Kodak Harding Consulting Providers: Mio Benitez; Junaid Travis Discharge Orders/Prescriptions Prescriptions: New furosemide 20 mg Tablet 20 mg PO BIDLX 30 Days Qty: 60 0RF Eliquis 5 mg Tablet 5 mg PO BID Qty: 30 0RF cephalexin 500 mg capsule 500 mg PO BID 2 Days Qty: 4 0RF Continued levothyroxine 112 mcg tablet 112 mcg PO DAILY losartan-hydrochlorothiazide 100-25 mg tablet 1 tab PO QHS nebivolol [Bystolic] 5 mg tablet 5 mg PO DAILY verapamil 360 mg capsule,ext rel. pellets 24 hr 360 mg PO DAILY Discontinued aspirin 325 mg tablet 325 mg PO QHS Referrals / Follow Up: Kodak Harding MD [Primary Care Provider] - Disposition Disposition (needs filled in before D/C Order can be placed): Home, Self Care 06/15/24 1358 Cosigner Signature (if applicable): CC: Dr. Aster Ramsey MD; Dr. Kodak Harding MD~ Signed [facility]03-07-2025 [facility] Medical Records Department [address] [place] [address] Discharge Summary 06/15/24 1343 MR#: [id number] Acct: [id number] Name: ESTEBAN WOODS Rep #: [id number] : 1935 88 From: Aster Ramsey MD PCP: Dr. Kodak Harding MD Status:ADM IN Location: [place] [address] Providers Date of Admission: 06/11/24 Primary Care Physician: Dr. Kodak Harding MD Reason For Visit: URINARY TRACT INFETION WITH SEPSIS, CHANGE IN Diagnosis Discharge Diagnosis (1) Urinary tract infection: Status: Acute Code(s): N39.0 - Urinary tract infection, site not specified Plan 1. #UTI with urosepsis #Urine cultures positive for E. coli (sensitive to ceftriaxone) -Received 5 days of IV ceftriaxone, will give p.o. cephalexin for 2 days -Afebrile, continue to monitor 2. 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 -Continue Eliquis -Close monitoring of heart rate -Metoprolol tartrate 50 mg twice daily 3. #Acute on chronic respiratory failure -Likely because of #2 -On room air, saturation is better -Continue to monitor, saturation around 92% at this time DVT prophylaxis: On Eliquis Discharge planning: Needs PT/OT/case management, can be transferred to PCU/MS Medications at Discharge Home Medications levothyroxine 112 mcg tablet 112 mcg PO DAILY thyroid 06/12/24 losartan 100 mg-hydrochlorothiazide 25 mg tablet 1 tab PO QHS Blood Pressure 06/12/24 nebivolol 5 mg tablet (Bystolic) 5 mg PO DAILY blood pressure 06/12/24 verapamil 360 mg 24 hr capsule,extended release 360 mg PO DAILY blood pressure 06/12/24 apixaban 5 mg tablet (Eliquis) 5 mg PO BID #30 tabs 06/15/24 cephalexin 500 mg capsule 500 mg PO BID 2 days #4 caps 06/15/24 furosemide 20 mg tablet 20 mg PO BIDLX 30 days #60 tabs 06/15/24 Hospital Course Operations None Procedures None Summary of Care Provided Minutes Spent on Discharge: 20 Hospital Course: 88-year-old female is admitted for concerns regarding UTI with urosepsis, associated acute decompensated heart failure in the setting of ongoing A-fib with RVR. . Her echocardiogram shows severe tricuspid regurgitation and elevated pulmonary systolic pressures so she has likely secondary pulmonary hypertension contributing to her symptoms. Started on IV Lasix and with negative fluid balance IV saturation improved and she was off oxygen. She is symptomatically doing much better, feels eager to go home and has good family support at home. She has some MARITZA after initiation of Lasix, she is encouraged to follow-up with her PCP closely after discharge She was previously on aspirin 325 mg daily, we will change her to Eliquis 5 mg twice daily. 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 Physical Exam Const alert and oriented x3 General Appearance: cooperative HEENT normocephalic Eyes PERRL Neck no lymphadenopathy Resp normal respiratory effort Resp Narrative: Left intra-scapular crepitations Cardio regular rate Cardio Narrative: Irregular rhythm GI normal to inspection, nondistended, normoactive bowel sounds Extremity normal to inspection and full ROM Skin no rashes or lesions noted Neuro oriented x3, CN's II-XII intact bilaterally, moves all extremities and no focal motor deficits Psych affect normal Weight / BMI Weight Weight: 153 lb 3.54 oz Body Mass Index (BMI) 28.0 ABG / Lab / Microbiology Data 06/14/24 10:20 06/14/24 10:20 Microbiology: Microbiology 06/11/24 18:50 Urine, Clean Catch Urine Culture - Final Presumptive E. coli Aerococcus sanguinicola D/C Instructions DC O2, CPAP, BIPAP Needs Home O2 Discharge instructions: No Meaningful Use Info Meaningful Use Meaningful Use Diagnoses (Choose all that apply): None applicable Ischemic Stroke Statin Dosing Therapy Reference: STATIN DOSE THERAPY REFERENCE: * Patients > 75 years receive moderate or high dose statin therapy. * Patients 75 years or YOUNGER should receive HIGH intensity statin dose unless contraindicated. You will be required to document reason for non-treatment if statin daily dose does not meet guidelines. HIGH DOSE STATIN THERAPY DAILY Atorvastatin > than or = to 40 mg Rosuvastatin > than or = to 20 mg Amlodipine + Atorvastatin > than or = to 2.5/40 mg Ezetimibe + Simvastatin 10/80 mg Simvastatin 80mg Discharge Plan Admission Admit Date/Time: 06/11/24 22:45 Primary Reason for Your Visit: Urinary tract infection Attending Provider: Aster Ramsey Primary Care Provider: Kodak Harding Consulting Providers: Mio Benitez; Junaid Travis (more content not included)...[facility]03-06-2025 Progress note Author Aster Ramsey [facility] Note Date/Time June 14, 2024 10:0 6am [facility] Medical Records Department [address] [place] [address] Progress Note - Hospitalist 06/14/24 1002 MR#: [id number] Acct: [id number] Name: ESTEBAN WOODS Rep #:[id number] : 1935 88 From: Aster Ramsey MD PCP: Dr. Kodak Harding MD Status:ADM IN Location: ICU ICU05-1 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) Unspecified atrial fibrillation (06/11/24) Urinary tract infection, site not specified (06/11/24) Other specified abnormal findings of blood chemistry (06/11/24) Subjective Subjective Subjectively improved, no palpitations Eager for discharge Objective Data Objective Data Vital Signs: Vital Signs Temp Pulse Resp BP Pulse Ox O2 Del Method O2 Flow Rate 97.3 F L 98 20 H 111/79 95 Room Air 2 06/14/24 03:00 06/14/24 08:52 06/14/24 03:00 06/14/24 08:52 06/14/24 03:00 06/14/24 03:00 06/13/24 07:10 Oxygen Flow Rate (L/min) 2 Oxygen Delivery Method Room Air Weight: 153 lb 3.54 oz Body Mass Index (BMI) 28.0 Intake & Output: Intake and Output for Last 24 Hours 06/12/24 06/13/24 06/14/24 23:59 23:59 23:59 Intake Total 100 / 100 460 / 460 Output Total 1300 / 1300 Balance -1200 / -1200 460 / 460 Lab / Micro Data Attestation: I reviewed the patient's lab results. 06/13/24 05:25 06/13/24 05:25 Micro: Microbiology 06/11/24 18:50 Urine, Clean Catch Urine Culture - Final Presumptive E. coli Aerococcus sanguinicola Physical Exam Const alert, oriented x3 and no apparent distress HEENT head/scalp atraumatic Eyes PERRL and EOMs intact bilaterally Neck no lymphadenopathy Resp normal respiratory effort and no retractions Auscultation: crackles bilateral Cardio Cardio Narrative: Tachycardia present GI normal to inspection, nondistended, normoactive bowel sounds Extremity normal to inspection Neuro oriented x3 and CN's II-XII intact bilaterally Psych affect normal Assessment & Plan Assessment/Plan (1) Urinary tract infection: PLAN: Plan 80-year-old female is admitted for concerns regarding UTI with urosepsis, associated acute decompensated heart failure in the setting of ongoing A-fib with RVR. Her echocardiogram shows severe tricuspid regurgitation and elevated pulmonary systolic pressures so she has likely secondary pulmonary hypertension contributing to her symptoms. She responded to 1 dose of Lasix IV, will repeat the dose today and monitor her heart rate, also heart failure education. 1. #UTI with urosepsis #Urine cultures positive for E. coli (sensitive to ceftriaxone) -Continue ceftriaxone -Afebrile, continue to monitor 2. #A-fib with RVR #Pulmonary artery hypertension with severe tricuspid regurgitation #ADHF -Repeat IV 40 Lasix, if responds well then we will switch to p.o. Lasix from tomorrow -Continue Eliquis -Close monitoring of heart rate -Metoprolol tartrate 50 mg twice daily 3. #Acute on chronic respiratory failure -Likely because of #2 -On room air, saturation is better -Continue to monitor, saturation around 92% at this time DVT prophylaxis: On Eliquis Discharge planning: Needs PT/OT/case management, can be transferred to PCU/MS 06/14/24 1006 <Electronically signed by Aster Ramsey MD> Cosigner Signature (if applicable): CC: ~ Signed [facility] Work Phone: 1(118) 934-939803-06-2025 Progress note [facility] Medical Records Department [address] [place] [address] Progress Note - Hospitalist 06/14/24 1002 MR#: [id number] Acct: [id number] Name: ESTEBAN WOODS Rep #:[id number] : 1935 88 From: Aster Ramsey MD PCP: Dr. Kodak Haridng MD Status:ADM IN Location: ICU ICU-1 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) Unspecified atrial fibrillation (06/11/24) Urinary tract infection, site not specified (06/11/24) Other specified abnormal findings of blood chemistry (06/11/24) Subjective Subjective Subjectively improved, no palpitations Eager for discharge Objective Data Objective Data Vital Signs: Vital Signs Temp Pulse Resp BP Pulse Ox O2 Del Method O2 Flow Rate 97.3 F L 98 20 H 111/79 95 Room Air 2 06/14/24 03:00 06/14/24 08:52 06/14/24 03:00 06/14/24 08:52 06/14/24 03:00 06/14/24 03:00 06/13/24 07:10 Oxygen Flow Rate (L/min) 2 Oxygen Delivery Method Room Air Weight: 153 lb 3.54 oz Body Mass Index (BMI) 28.0 Intake & Output: Intake and Output for Last 24 Hours 06/12/24 06/13/24 06/14/24 23:59 23:59 23:59 Intake Total 100 / 100 460 / 460 Output Total 1300 / 1300 Balance -1200 / -1200 460 / 460 Lab / Micro Data Attestation: I reviewed the patient's lab results. 06/13/24 05:25 06/13/24 05:25 Micro: Microbiology 06/11/24 18:50 Urine, Clean Catch Urine Culture - Final Presumptive E. coli Aerococcus sanguinicola Physical Exam Const alert, oriented x3 and no apparent distress HEENT head/scalp atraumatic Eyes PERRL and EOMs intact bilaterally Neck no lymphadenopathy Resp normal respiratory effort and no retractions Auscultation: crackles bilateral Cardio Cardio Narrative: Tachycardia present GI normal to inspection, nondistended, normoactive bowel sounds Extremity normal to inspection Neuro oriented x3 and CN's II-XII intact bilaterally Psych affect normal Assessment & Plan Assessment/Plan (1) Urinary tract infection: PLAN: Plan 80-year-old female is admitted for concerns regarding UTI with urosepsis, associated acute decompensated heart failure in the setting of ongoing A-fib with RVR. Her echocardiogram shows severe tricuspid regurgitation and elevated pulmonary systolic pressures so she has likely secondary pulmonary hypertension contributing to her symptoms. She responded to 1 dose of Lasix IV, will repeat the dose today and monitor her heart rate, also heart failure education. 1. #UTI with urosepsis #Urine cultures positive for E. coli (sensitive to ceftriaxone) -Continue ceftriaxone -Afebrile, continue to monitor 2. #A-fib with RVR #Pulmonary artery hypertension with severe tricuspid regurgitation #ADHF -Repeat IV 40 Lasix, if responds well then we will switch to p.o. Lasix from tomorrow -Continue Eliquis -Close monitoring of heart rate -Metoprolol tartrate 50 mg twice daily 3. #Acute on chronic respiratory failure -Likely because of #2 -On room air, saturation is better -Continue to monitor, saturation around 92% at this time DVT prophylaxis: On Eliquis Discharge planning: Needs PT/OT/case management, can be transferred to PCU/MS 06/14/24 1006 Cosigner Signature (if applicable): CC: ~ Signed [facility]03-05-2025 Progress note Author Aster Ramsey [facility] Note Date/Time June 13, 2024 11:2 4am [facility] Medical Records Department [address] [place] [address] Progress Note - Hospitalist 06/13/24 0923 MR#: [id number] Acct: [id number] Name: ESTEBAN WOODS Rep #:[id number] : 1935 88 From: Aster Ramsey MD PCP: Dr. Kodak Harding MD Status:ADM IN Location: ICU ICU-1 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1 Intake & Output: Intake and Output for Last 24 Hours 06/11/24 06/12/24 06/13/24 23:59 23:59 23:59 Intake Total 550 / 550 100 / 100 360 / 360 Output Total 1300 / 1300 Balance 550 / 550 -1200 / -1200 360 / 360 Lab / Micro Data Attestation: I reviewed the patient's lab results. 06/13/24 05:25 06/13/24 05:25 Labs: Laboratory Results - last 24 hr 06/12/24 03:25: TSH 3.320 06/13/24 05:25: WBC 16.2 H, RBC 4.53, Hgb 14.6, Hct 43.6, MCV 96.2, MCH 32.2 H, MCHC 33.5, RDW Std Deviation 47.0 H, RDW Coeff of Hong 13.3, Plt Count 252, MPV 9.2, Immature Gran % (Auto) 0.500, Neut % (Auto) 79.4 H, Lymph % (Auto) 11.5 L, Collingsworth % (Auto) 7.5, Eos % (Auto) 0.6, Baso % (Auto) 0.5, Absolute Neuts (auto) 12.9 H, Absolute Lymphs (auto) 1.86, Nucleated RBC % 0, Sodium 136, Potassium 4.0, Chloride 99, Carbon Dioxide 24.1, Anion Gap 13, BUN 26 H, Creatinine 0.87, Estim Creat Clear Calc 40.91 L, Est GFR (MDRD) Non-Af 64, BUN/Creatinine Ratio 29.9 H, Glucose 122 H, Calcium 10.0 Micro: Microbiology 06/11/24 18:50 Urine, Clean Catch Urine Culture - Preliminary Presumptive E. coli Alpha hemolytic organism Radiography Diagnostic Testing: Radiology Impression Echocardiogram 06/12/24 09:04 Interpretation Summary Mild concentric left ventricular hypertrophy. Mild to moderate LV systolic dysfunction. Estimated LVEF 40%. Diastolic functionindeterminate. Mild to moderate global right ventricular systolic dysfunction. There is severe biatrial dilatation. Severe posterior mitral annular calcification. Moderate to severe mitral valve regurgitation. Moderate to severe tricuspid valve regurgitation. Right ventricular systolic pressure estimated at 75 mmHg. Mild (1+) aortic valve insufficiency. Ordering Physician: Junaid Travis Referring Physician: KODAK HARDING Performed By: Gloria Claudio, SUPRIYA Physical Exam Const alert, oriented x3 and no apparent distress HEENT head/scalp atraumatic Eyes PERRL Neck no lymphadenopathy Resp Resp Narrative: Bilateral crepitations present in the infrascapular and interscapular regions Cardio Cardio Narrative: Tachycardia GI normal to inspection, nondistended, normoactive bowel sounds Extremity normal to inspection Neuro oriented x3, CN's II-XII intact bilaterally and moves all extremities Psych affect normal Assessment & Plan Assessment/Plan (1) Sepsis: PLAN: Plan 80-year-old female is admitted for concerns regarding UTI with urosepsis, associated acute decompensated heart failure in the setting of ongoing A-fib with RVR. Her echocardiogram shows severe tricuspid regurgitation and elevated pulmonary systolic pressures so she has likely secondary pulmonary hypertension contributing to her symptoms 1. #UTI with urosepsis #Urine cultures positive for E. coli (sensitive to ceftriaxone) -Continue ceftriaxone -Afebrile, continue to monitor 2. #A-fib with RVR #Pulmonary artery hypertension with severe tricuspid regurgitation #ADHF -Injection Lasix 40 mg once to assess response -Continue Eliquis -Close monitoring of heart rate -Metoprolol tartrate 50 mg twice daily 3. #Acute on chronic respiratory failure -Likely because of #2 -Continue to monitor, saturation around 92% at this time Charges/Coding Visit Charges Inpatient E&M: 98309 Init Hosp L2 06/13/24 1124 <Electronically signed by Aster Ramsey MD> Cosigner Signature (if applicable): CC: ~ Signed [facility] Work Phone: 1(289) 746-214103-05-2025 Progress note [facility] Medical Records Department [address] [place] [address] Progress Note - Hospitalist 06/13/24 0923 MR#: [id number] Acct: [id number] Name: ESTEBAN WOODS Rep #:[id number] : 1935 88 From: Aster Ramsey MD PCP: Dr. Kodak Harding MD Status:ADM IN Location: ICU ICU05-1 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1 Intake & Output: Intake and Output for Last 24 Hours 06/11/24 06/12/24 06/13/24 23:59 23:59 23:59 Intake Total 550 / 550 100 / 100 360 / 360 Output Total 1300 / 1300 Balance 550 / 550 -1200 / -1200 360 / 360 Lab / Micro Data Attestation: I reviewed the patient's lab results. 06/13/24 05:25 06/13/24 05:25 Labs: Laboratory Results - last 24 hr 06/12/24 03:25: TSH 3.320 06/13/24 05:25: WBC 16.2 H, RBC 4.53, Hgb 14.6, Hct 43.6, MCV 96.2, MCH 32.2 H, MCHC 33.5, RDW Std Deviation 47.0 H, RDW Coeff of Hong 13.3, Plt Count 252, MPV 9.2, Immature Gran % (Auto) 0.500, Neut % (Auto) 79.4 H, Lymph % (Auto) 11.5 L, Collingsworth % (Auto) 7.5, Eos % (Auto) 0.6, Baso % (Auto) 0.5, Absolute Neuts (auto) 12.9 H, Absolute Lymphs (auto) 1.86, Nucleated RBC % 0, Sodium 136, Potassium 4.0,Chloride 99, Carbon Dioxide 24.1, Anion Gap 13, BUN 26 H, Creatinine 0.87, Estim Creat Clear Calc 40.91 L, Est GFR (MDRD) Non-Af 64, BUN/Creatinine Ratio 29.9 H, Glucose 122 H, Calcium 10.0 Micro: Microbiology 06/11/24 18:50 Urine, Clean Catch Urine Culture - Preliminary Presumptive E. coli Alpha hemolytic organism Radiography Diagnostic Testing: Radiology Impression Echocardiogram 06/12/24 09:04 Interpretation Summary Mild concentric left ventricular hypertrophy. Mild to moderate LV systolic dysfunction. Estimated LVEF 40%. Diastolic functionindeterminate. Mild to moderate global right ventricular systolic dysfunction. There is severe biatrial dilatation. Severe posterior mitral annular calcification. Moderate to severe mitral valve regurgitation. Moderate to severe tricuspid valve regurgitation. Right ventricular systolic pressure estimated at 75 mmHg. Mild (1+) aortic valve insufficiency. Ordering Physician: Junaid Travis Referring Physician: KODAK HARDING Performed By: Gloria Claudio RDCS Physical Exam Const alert, oriented x3 and no apparent distress HEENT head/scalp atraumatic Eyes PERRL Neck no lymphadenopathy Resp Resp Narrative: Bilateral crepitations present in the infrascapular and interscapular regions Cardio Cardio Narrative: Tachycardia GI normal to inspection, nondistended, normoactive bowel sounds Extremity normal to inspection Neuro oriented x3, CN's II-XII intact bilaterally and moves all extremities Psych affect normal Assessment & Plan Assessment/Plan (1) Sepsis: PLAN: Plan 80-year-old female is admitted for concerns regarding UTI with urosepsis, associated acute decompensated heart failure in the setting of ongoing A-fib with RVR. Her echocardiogram shows severe tricuspid regurgitation and elevated pulmonary systolic pressures so she has likely secondary pulmonary hypertension contributing to her symptoms 1. #UTI with urosepsis #Urine cultures positive for E. coli (sensitive to ceftriaxone) -Continue ceftriaxone -Afebrile, continue to monitor 2. #A-fib with RVR #Pulmonary artery hypertension with severe tricuspid regurgitation #ADHF -Injection Lasix 40 mg once to assess response -Continue Eliquis -Close monitoring of heart rate -Metoprolol tartrate 50 mg twice daily 3. #Acute on chronic respiratory failure -Likely because of #2 -Continue to monitor, saturation around 92% at this time Charges/Coding Visit Charges Inpatient E&M: 36502 Init Hosp L2 06/13/24 1124 Cosigner Signature (if applicable): CC: ~ Signed [facility]03-04-2025 Progress note Author Junaid Travis [facility] Note Date/Time June 12, 2024 9:04 am [facility] Medical Records Department [address] [place] [address] Progress Note - Hospitalist 06/12/24 0900 MR#: [id number] Acct: [id number] Name: ESTEBAN WOODS Rep #:[id number] : 1935 88 From: Junaid robertson MD PCP: Dr. Kodak Harding MD Status:ADM IN Location: ICU ICU05-1 Subjective Subjective Doing well, no issues overnight. Remains tachycardic and is little bit hard of hearing Objective Data Objective Data Vital Signs: Vital Signs Temp Pulse Resp BP Pulse Ox O2 Del Method O2 Flow Rate 97.5 F L 117 H 20 H 132/95 H 92 Nasal Cannula 2 06/12/24 04:00 06/12/24 07:00 06/12/24 07:00 06/12/24 07:00 06/12/24 07:00 06/12/24 07:00 06/12/24 07:00 Oxygen Flow Rate (L/min) 2 Oxygen Delivery Method Nasal Cannula Weight: 155 lb 3.287 oz Body Mass Index (BMI) 28.5 Intake & Output: Intake and Output for Last 24 Hours 06/11/24 06/12/24 06/13/24 03:59 03:59 03:59 Intake Total 550 / 550 Output Total 950 / 950 150 / 150 Balance -400 / -400 -150 / -150 Lab / Micro Data 06/12/24 03:25 06/12/24 03:25 Labs: Laboratory Results - last 24 hr 06/11/24 18:45: WBC 14.6 H, RBC 4.59, Hgb 14.9, Hct 45.0, MCV 98.0, MCH 32.5 H, MCHC 33.1, RDW Std Deviation 47.4 H, RDW Coeff of Hong 13.2, Plt Count 262, MPV 9.4, Immature Gran % (Auto) 0.500, Neut % (Auto) 69.7, Lymph % (Auto) 21.4, Collingsworth% (Auto) 7.0, Eos % (Auto) 0.8, Baso % (Auto) 0.6, Absolute Neuts (auto) 10.2 H,Absolute Lymphs (auto) 3.12, Nucleated RBC % 0, Sodium 133, Potassium 3.9, Chloride 95 L, Carbon Dioxide 22.6, Anion Gap 15, BUN 23 H, Creatinine 1.00, Est GFR (MDRD) Non-Af 54 L, BUN/Creatinine Ratio 22.6 H, Glucose 113 H, Lactic Acid 3.1 H*, Calcium 10.3, Total Bilirubin 1.53 H, AST 39 H, ALT 18, Alkaline Phosphatase 80, Troponin T High Sens 64 H*, Total Protein 8.2, Albumin 3.8, Globulin 4.4 H, Albumin/Globulin Ratio 0.9, Lipase 20 06/11/24 18:50: Urine Color Yellow, Urine Clarity Cloudy, Urine pH 6.5, Ur Specific [place] 1.015, Urine Protein 100 H, Urine Glucose (UA) Normal, Urine Ketones Negative, Urine Occult Blood 25 H, Urine Nitrite Negative, Urine Bilirubin Negative, Urine Urobilinogen 8 H, Ur Leukocyte Esterase 25 H, Urine RBC 0 SEEN, Urine WBC 0-5 SEEN, Ur Squamous Epith Cells 0 SEEN, Amorphous Sediment 1+, Urine Bacteria 4+, Urine Mucus 0 SEEN 06/11/24 20:31: Troponin T Hi Sens 2 Hr 59 H*, Troponin T Hi Sens 2Hr Delta 5, B-Natriuretic Peptide 4739.0 H 06/11/24 22:37: Troponin T Hi Sens 4Hr 61 H*, Troponin T Hi Sens 4Hr Delta 3 06/12/24 03:25: WBC 13.5 H, RBC 4.53, Hgb 14.7, Hct 43.8, MCV 96.7, MCH 32.5 H, MCHC 33.6, RDW Std Deviation 47.0 H, RDW Coeff of [place] 13.2, Plt Count 264, MPV 9.2, Immature Gran % (Auto) 0.600, Neut % (Auto) 75.5 H, Lymph % (Auto) 14.7 L, [place] % (Auto) 8.1, Eos % (Auto) 0.7, Baso % (Auto) 0.4, Absolute Neuts (auto) 10.2 H, Absolute Lymphs (auto) 1.98, Nucleated RBC % 0, Sodium 134, Potassium 3.4, Chloride 95 L, Carbon Dioxide 25.4, Anion Gap 13, BUN 21 H, Creatinine 0.85, Estim Creat Clear Calc 42.05 L, Est GFR (MDRD) Non-Af 66, BUN/Creatinine Ratio 24.6 H, Glucose 132 H, Calcium 9.9 Radiography Diagnostic Testing: Radiology Impression Chest X-Ray 06/11/24 16:58 IMPRESSION: 1. Cardiomegaly with mild pulmonary vascular congestion 2. 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 Reading Location: [facility] Brain CT 06/11/24 18:17 IMPRESSION: 1. No acute intracranial abnormality. 2. Age-appropriate volume loss and remote small vessel ischemic changes 3. Left parietal meningioma Reading Location[facility] Physical Exam Narrative General: Alert, Oriented x3, Cooperative, No apparent distress HEENT: Atraumatic, PERRLA, EOMI, Normocephalic, hard of hearing Oral: Moist Mucosa Neck: Supple, No JVD Lungs: Diminished, Normal air movement, No rhonchi, No wheeze, No rales Cardiovascular: Irregular rate and rhythm, Normal S1, Normal S2, No murmurs Abdomen: Soft, Non Tender, Non-Distended, No Hepato-splenomegaly Extremities: No edema, Capillary Refill Less than 3 Seconds Skin: No rashes, No breakdown Musculoskeletal: No Tenderness to Palpation of Joints or Extremities Neurological: No focal neurological deficits, Motor Exam 5/5 strength throughout, Sensory exam intact to light touch and pain Psych/Mental Status: Normal Affect, Appropriate Assessment & Plan Assessment/Plan (1) Urinary tract infection: (2) Atrial fibrillation with RVR: (3) Sepsis: PLAN: Plan 1. Metabolic encephalopathy secondary to UTI ? Continue with antibiotics, cultures pending ? Does not have sepsis secondary to insurance ? PT/OT 2. A-fib with RVR/essential HTN ? Unclear as to her home medications at the moment, continue with Eliquis and p.o. metoprolol ? Will attempt to obtain medication list DVT: Eliquis Charges/Coding Visit Charges Inpatient E&M: 56243 Subs Hosp L2 06/12/24 0904 <Electronically signed by Junaid Travis MD> Cosigner Signature (if applicable): CC: ~ Signed [facility] Work Phone: 1([phone] 342-918703-04-2025 Progress note [facility] Medical Records Department [address] [place] [address] Progress Note - Hospitalist 06/12/24 09 MR#: [id number] Acct: [id number] Name: ESTEBAN WOODS Rep #:[id number] : 1935 88 From: Junaid robertson MD PCP: Dr. Kodak Harding MD Status:ADM IN Location: ICU ICU05-1 Subjective Subjective Doing well, no issues overnight. Remains tachycardic and is little bit hard of hearing Objective Data Objective Data Vital Signs: Vital Signs Temp Pulse Resp BP Pulse Ox O2 Del Method O2 Flow Rate 97.5 F L 117 H 20 H 132/95 H 92 Nasal Cannula 2 06/12/24 04:00 06/12/24 07:00 06/12/24 07:00 06/12/24 07:00 06/12/24 07:00 06/12/24 07:00 06/12/24 07:00 Oxygen Flow Rate (L/min) 2 Oxygen Delivery Method Nasal Cannula Weight: 155 lb 3.287 oz Body Mass Index (BMI) 28.5 Intake & Output: Intake and Output for Last 24 Hours 06/11/24 06/12/24 06/13/24 03:59 03:59 03:59 Intake Total 550 / 550 Output Total 950 / 950 150 / 150 Balance -400 / -400 -150 / -150 Lab / Micro Data 06/12/24 03:25 06/12/24 03:25 Labs: Laboratory Results - last 24 hr 06/11/24 18:45: WBC 14.6 H, RBC 4.59, Hgb 14.9, Hct 45.0, MCV 98.0, MCH 32.5 H, MCHC 33.1, RDW Std Deviation 47.4 H, RDW Coeff of [place] 13.2, Plt Count 262, MPV 9.4, Immature Gran % (Auto) 0.500, Neut % (Auto) 69.7, Lymph % (Auto) 21.4, [place]% (Auto) 7.0, Eos % (Auto) 0.8, Baso % (Auto) 0.6, Absolute Neuts (auto) 10.2 H,Absolute Lymphs (auto) 3.12, Nucleated RBC % 0, Sodium 133, Potassium 3.9, Chloride 95 L, Carbon Dioxide 22.6, Anion Gap 15, BUN 23 H, Creatinine 1.00, Est GFR (MDRD) Non-Af 54 L, BUN/Creatinine Ratio 22.6 H, Glucose 113 H, Lactic Acid 3.1 H*, Calcium 10.3, Total Bilirubin 1.53 H, AST 39 H, ALT 18, Alkaline Phosphatase 80, Troponin T High Sens 64 H*, Total Protein 8.2, Albumin 3.8, Globulin 4.4 H, Albumin/Globulin Ratio 0.9, Lipase 20 06/11/24 18:50: Urine Color Yellow, Urine Clarity Cloudy, Urine pH 6.5, Ur Specific [place] 1.015, Urine Protein 100 H, Urine Glucose (UA) Normal, Urine Ketones Negative, Urine Occult Blood 25 H, Urine Nitrite Negative, Urine Bilirubin Negative, Urine Urobilinogen 8 H, Ur Leukocyte Esterase 25 H, Urine RBC 0 SEEN, Urine WBC 0-5 SEEN, Ur Squamous Epith Cells 0 SEEN, Amorphous Sediment 1+, Urine Bacteria 4+, Urine Mucus 0 SEEN 06/11/24 20:31: Troponin T Hi Sens 2 Hr 59 H*, Troponin T Hi Sens 2Hr Delta 5, B-Natriuretic Peptide 4739.0 H 06/11/24 22:37: Troponin T Hi Sens 4Hr 61 H*, Troponin T Hi Sens 4Hr Delta 3 06/12/24 03:25: WBC 13.5 H, RBC 4.53, Hgb 14.7, Hct 43.8, MCV 96.7, MCH 32.5 H, MCHC 33.6, RDW Std Deviation 47.0 H, RDW Coeff of [place] 13.2, Plt Count 264, MPV 9.2, Immature Gran % (Auto) 0.600, Neut % (Auto) 75.5 H, Lymph % (Auto) 14.7 L, [place] % (Auto) 8.1, Eos % (Auto) 0.7, Baso % (Auto) 0.4, Absolute Neuts (auto) 10.2 H, Absolute Lymphs (auto) 1.98, Nucleated RBC % 0, Sodium 134, Potassium 3.4,Chloride 95 L, Carbon Dioxide 25.4, Anion Gap 13, BUN 21 H, Creatinine 0.85, Estim Creat Clear Calc42.05 L, Est GFR (MDRD) Non-Af 66, BUN/Creatinine Ratio 24.6 H, Glucose 132 H, Calcium 9.9 Radiography Diagnostic Testing: Radiology Impression Chest X-Ray 06/11/24 16:58 IMPRESSION: 1. Cardiomegaly with mild pulmonary vascular congestion 2. 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 Reading Location: [facility] Brain CT 06/11/24 18:17 IMPRESSION: 1. No acute intracranial abnormality. 2. Age-appropriate volume loss and remote small vessel ischemic changes 3. Left parietal meningioma Reading Location: [facility] Physical Exam Narrative General: Alert, Oriented x3, Cooperative, No apparent distress HEENT: Atraumatic, PERRLA, EOMI, Normocephalic, hard of hearing Oral: Moist Mucosa Neck: Supple, No JVD Lungs: Diminished, Normal air movement, No rhonchi, No wheeze, No rales Cardiovascular: Irregular rate and rhythm, Normal S1, Normal S2, No murmurs Abdomen: Soft, Non Tender, Non-Distended, No Hepato-splenomegaly Extremities: No edema, Capillary Refill Less than 3 Seconds Skin: No rashes, No breakdown Musculoskeletal: No Tenderness to Palpation of Joints or Extremities Neurological: No focal neurological deficits, Motor Exam 5/5 strength throughout, Sensory exam intact to light touch and pain Psych/Mental Status: Normal Affect, Appropriate Assessment & Plan Assessment/Plan (1) Urinary tract infection: (2) Atrial fibrillation with RVR: (3) Sepsis: PLAN: Plan 1. Metabolic encephalopathy secondary to UTI ? Continue with antibiotics, cultures pending ? Does not have sepsis secondary to insurance ? PT/OT 2. A-fib with RVR/essential HTN ? Unclear as to her home medications at the moment, continue with Eliquis and p.o. metoprolol ? Will attempt to obtain medication list DVT: Eliquis Charges/Coding Visit Charges Inpatient E&M: 44212 Subs Hosp L2 06/12/24 0904 Cosigner Signature (if applicable): CC: ~ Signed [facility]03-04-2025 Discharge summary Author Bob Liu [facility] Note Date/Time June 11, 2024 11:1 4pm [facility] Medical Records Department [address] [place] [address] Emergency Department Summary 06/11/24 MR#: [id number] Acct: [id number] Name: ESTEBAN WOODS Rep #:[id number] : 1935 88 From: Bob Irwin PCP: Dr. Kodak Harding MD Status:ADM IN [facility] History of Present Illness Chief Complaint: Neuro S/Sx PFSH PFS Medical History (Updated 06/11/24 @ 22:[address] Mio Benitez MD) Hypertension Home Medications ?Medication ?Instructions ?Recorded ?Last Taken ?Type Unobtainable 06/11/24 Unknown History Allergy/AdvReac Type Severity Reaction Status Date / Time No Known Allergies Allergy Verified 06/11/24 20:12 Family History unable to obtain Surgical History unable to obtain Social History Smoking Status: Never smoker EXAM Physical Exam Const Vital Signs: 06/11/24 17:54 06/11/24 19:31 06/11/24 20:15 Temperature 98.6 F Temperature Source Temporal Pulse Rate 120 H 112 H 112 H Respiratory Rate 16 24 H 20 H Blood Pressure 175/130 H 171/111 H 174/106 H Blood Pressure Mean 145 131 128 Pulse Ox 93 94 95 Oxygen Delivery Method Room Air Nasal Cannula Nasal Cannula Oxygen Flow Rate (L/min) 2 2 06/11/24 20:45 06/11/24 21:12 06/11/24 22:00 Temperature 97.7 F L 97.8 F Temperature Source Oral Oral Pulse Rate 118 H 110 H 111 H Respiratory Rate 30 H 18 20 H Blood Pressure 161/115 H 167/127 H 181/121 H Blood Pressure Mean 130 140 141 Pulse Ox 93 94 98 Oxygen Delivery Method Nasal Cannula Nasal Cannula Oxygen Flow Rate (L/min) 2 2 MDM MDM MDM Narrative Medical decision making narrative: HISTORY OF PRESENT ILLNESS: 88-year-old female presents concern for expressive aphasia. Son notes last timeshe was noted to be normal was at approximately 10 AM on 06/10/2024. The majorityhistory is provided by the patient's son if she is confused. Today around noon she showed up at her her son's house and was having trouble finding her words. Notes confusion, saying non-sensical words. NO falls. no fever, no vomiting. REVIEW OF SYSTEMS: Pertinent positives: Word finding difficulty, confusion ROS are not reliable 2/2 to mental status changes. PHYSICAL EXAM: Nursing triage notes reviewed, Vital signs reviewed Constitutional: please see mdm HENT: MMM Eyes: Pupils equal round and reactive to light, Extraocular muscles intact Neck: No stridor, no JVD, full neck ROM Lungs: Clear to auscultation, No wheezing or rales. No increased work of breathing, no conversational dyspnea, no accessory muscle use, no nasal flaring. No respiratory distress noted Heart: Regular rate and rhythm, No murmurs, No rubs and No gallops, 2+ distal pulses (radial, femoral, posterior tibial) in all extremities Abdomen: Soft, there is no tenderness, rigidity, rebound or guarding, no obviousperitoneal signs, no palpable pulsatile abdominal masses, no auscultated abdominal bruit : No CVAT Extremities: No edema Neuro: Alert, oriented to person and place but not time. (Per son baseline is alert and orient x 3), moves all 4 extremities, has normal speech. No obvious cranial nerve deficits. No obvious sensory or strength deficits. No issues with extremity or truncal ataxia. NIH of 0 Skin: No rash or lesions noted MEDICAL DECISION MAKING: Chief Complaint: Speech difficulty External records reviewed: Reviewed prior imaging studies. Reviewed echocardiogram from 2016 which showed ejection fraction of 55% Factors affecting care: none reported Social determinants of health: elderly History obtained from others: The patient's son Consults: Neurosurgery at [facility] Emergency is Dr. Donaldson, Internal Medicine (Dr. Crum) [facility] Narrative: The patient was initially hypertensive with a blood pressure 175/130, tachycardic with a heart rate of 120. Exam without focal neurologic deficits. The patient. Diffuse encephalopathic I considered the following differential diagnosis: ICH, infectious or metabolic encephalopathy, ACS, arrhythmia, anemia, electrolyte disturbance I obtained a broad lab and imaging workup to further elucidate etiology of patient's complaints. Patient was initially resuscitated from cc bolus ALL IMAGES (IF OBTAINED) HAVE BEEN PERSONALLY REVIEWED AND INTERPRETED BY MYSELF. EKG with normal axis, normal's, A-fib with RVR, no STEMI Initial troponin elevated, delta troponin continues to be elevated. This is likely a result of demand ischemia from A-fib with RVR, CHF and urosepsis. Chest x-ray shows evidence of pulmonary vascular congestion CT scan of the head is negative for ICH, there is noted meningioma CBC with leukocytosis suggestive recent abrasion, no anemia or thrombocytopenia BMP without significant electrolyte normalities, no MARITZA Initial lactate elevated consistent with endorgan hypoperfusion Urinalysis without nitrites however there is leukoesterase and 4+ bacteria consistent with likely UTI lipase is wnl indicating no pancreatic inflammation. Urine culture sent Treat UTI with ceftriaxone. Pulmonary vascular congestion new oxygen requirement of the patient ED stay after 500 cc bolus I gave her 40 mg of Lasix. Given CT scan Dr. Benitez initially recommended transfer. Discussed with [facility] Neurosurgery Dr. Donaldson who noted the patient would not require neurosurgery intervention for meningioma. Recommended no transfer. Discussed this with Dr. Benitez who agreed to accept the patient. The patient and/or family, caregivers express understanding. The patient and/orfamily, caregivers agrees with the plan. Shared decision making: I will have a discussion with the patient and or visitors regarding risk/benefits of further testing or admission. They will be made aware of of the risk/benefits inherent in this decision they will be given the opportunity to voice understanding. Total critical care time today provided was at least 0 minutes. This excludes separately billable procedures. Critical care time (if documented) is secondary to the patient having high probability of clinically significant/life threatening deterioration in the patient's condition which required my urgent intervention. Impression: 1. Altered mental status 2. Urosepsis 3. CHF exacerbation 4. NSTEMI 5. A-fib with Dispo: admit to ICU This note was generated with flaregames dictation software. It may contain incorrectwords, spelling, and punctuation that were not noted in review of the chart prior to signing. Lab Data Labs: Laboratory Results - last 24 hr 06/11/24 06/11/24 06/11/24 18:45 18:50 20:31 WBC 14.6 H RBC 4.59 Hgb 14.9 Hct 45.0 MCV 98.0 MCH 32.5 H MCHC 33.1 RDW Std Deviation 47.4 H RDW Coeff of [place] 13.2 Plt Count 262 MPV 9.4 Immature Gran % (Auto) 0.500 Neut % (Auto) 69.7 Lymph % (Auto) 21.4 [place] % (Auto) 7.0 Eos % (Auto) 0.8 Baso % (Auto) 0.6 Absolute Neuts (auto) 10.2 H Absolute Lymphs (auto) 3.12 Nucleated RBC % 0 Sodium 133 Potassium 3.9 Chloride 95 L Carbon Dioxide 22.6 Anion Gap 15 BUN 23 H Creatinine 1.00 Est GFR (MDRD) Non-Af 54 L BUN/Creatinine Ratio 22.6 H Glucose 113 H Lactic Acid 3.1 H* Calcium 10.3 Total Bilirubin 1.53 H AST 39 H ALT 18 Alkaline Phosphatase 80 Troponin T High Sens 64 H* Troponin T Hi Sens 2 Hr 59 H* Troponin T Hi Sens 2Hr Delta 5 Total Protein 8.2 Albumin 3.8 Globulin 4.4 H Albumin/Globulin Ratio 0.9 Lipase 20 Urine Color Yellow Urine Clarity Cloudy Urine pH 6.5 Ur Specific [place] 1.015 Urine Protein 100 H Urine Glucose (UA) Normal Urine Ketones Negative Urine Occult Blood 25 H Urine Nitrite Negative Urine Bilirubin Negative Urine Urobilinogen 8 H Ur Leukocyte Esterase 25 H Urine RBC 0 SEEN Urine WBC 0-5 SEEN Ur Squamous Epith Cells 0 SEEN Amorphous Sediment 1+ Urine Bacteria 4+ Urine Mucus 0 SEEN Radiography Diagnostic Testing: Clinical Impression(s) from Imaging Studies Chest X-Ray 06/11/24 16:58 IMPRESSION: 1. Cardiomegaly with mild pulmonary vascular congestion 2. 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 Reading Location: [facility] Brain CT 06/11/24 18:17 IMPRESSION: 1. No acute intracranial abnormality. 2. Age-appropriate volume loss and remote small vessel ischemic changes 3. Left parietal meningioma Reading Location: [facility] Discharge Plan Disposition Disposition: Acute Care Hospital [facility] Discharge Date/Time: 06/11/24 22:55 What to do if you have Problems For any increased pain, shortness of breath, bleeding, nausea or vomiting, chestpain, or any unexpected problems, contact your Primary Care Provider. Call [facility] ([phone]) or report to the closest Emergency Room. Call 911 if necessary. 06/11/24 2314 <Electronically signed by Bob Liu DO> Cosigner Signature (if applicable): CC: Dr. Kodak Harding MD ~ Signed [facility] Work Phone: 1(349) 152-793703-04-2025 Evaluation note* Diagnosis Onset Date Resolution Status Admit Date Atrial fibrillation with RVR acute June 11, 2024 10:45pm Elevated troponin acute June 112024 10:45pm Meningioma, cerebral acute Kenan h 2024 10:45pm Sepsis acute June 11 10:45pm Urinary tract infection acute M arch 2024 10:45pm [facility] Work Phone: 1(688) 563-232003-04-2025 History and physical note Author Mio Benitez [facility] Note Date/Time June 11, 2024 10:4 4pm [facility] Medical Records Department [address] [place] [address] History & Physical Exam 06/11/249 MR#: [id number] Acct: [id number] Name: ESTEBAN WOODS Rep #:[id number] : 1935 88 From: Mio Benitez MD PCP: Dr. Kodak Harding MD Status:ADM IN Location: ICU ICU05-1 HPI - General General Date of Admission: 06/11/24 Date of Service: 06/11/24 Chief Complaint: Altered mental status HPI Narrative ESTEBAN WOODS, is a 88 F who presents to the emergency room with chief complaint of altered mental status. Patient was last known normal on 06/10/2024 at 10 AM but today went to her son's house at noon when he says that she was unable to speak clearly and nonsensical in her verbal communication. There were no other focal neurologic deficits reported at that time and initial NIH score the hospital setting was 0. Patient is a poor historian. Her laboratory studies were remarkable for an elevated white blood cell count of 14.6, hemoglobin 14.9,hematocrit 45, platelets 262, sodium 133, potassium 3.9, chloride 95, bicarb 22.6, BUN 23, creatinine 1.0, glucose 113, lactate elevated at 3.1 with 2 serialtroponins of 64 and 59, urinalysis positive for 4+ bacteria. CT scan was negative for acute findings however there was a noted left parietal meningioma reported for which neurosurgery at [facility] Was consulted by ER physician and felt not necessary to transfer patient that this was not causative of her current status. Chest x-ray showed cardiomegaly with vascular congestion and BNTP was pending at the time of my evaluation. Urinalysis was done prior to administration of antibiotics however blood cultures were not obtained prior to administration of Rocephin in the emergency room setting. Patient also has a significant history of atrial fibrillation for which she is currently in rapid ventricular response with a rate in the approximate 130 range. Patient will be admitted to the intensive care unit for treatment of urinary tract infection with sepsis [facility] Medical History (Updated 06/11/24 @ 22:[address] Mio Benitez MD) Hypertension Home Medications ?Medication ?Instructions ?Recorded ?Last Taken ?Type Unobtainable 06/11/24 Unknown History Allergy/AdvReac Type Severity Reaction Status Date / Time No Known Allergies Allergy Verified 06/11/24 20:12 Family History unable to obtain Surgical History unable to obtain Social History Smoking Status: Never smoker ROS Review of Systems ROS Unobtainable: due to mental status Vital Signs Vital Signs Vital Signs: 06/11/24 17:54 06/11/24 19:31 06/11/24 20:15 Temperature 98.6 F Temperature Source Temporal Pulse Rate 120 H 112 H 112 H Respiratory Rate 16 24 H 20 H Blood Pressure 175/130 H 171/111 H 174/106 H Blood Pressure Mean 145 131 128 Pulse Ox 93 94 95 Oxygen Delivery Method Room Air Nasal Cannula Nasal Cannula Oxygen Flow Rate (L/min) 2 2 06/11/24 20:45 06/11/24 21:12 06/11/24 22:00 Temperature 97.7 F L 97.8 F Temperature Source Oral Oral Pulse Rate 118 H 110 H 111 H Respiratory Rate 30 H 18 20 H Blood Pressure 161/115 H 167/127 H 181/121 H Blood Pressure Mean 130 140 141 Pulse Ox 93 94 98 Oxygen Delivery Method Nasal Cannula Nasal Cannula Oxygen Flow Rate (L/min) 2 2 Weight Weight: 159 lb 9.835 oz Body Mass Index (BMI) 29.2 Physical Exam Const alert General Appearance: cooperative Orientation / Consciousness: confused HEENT normocephalic and head/scalp atraumatic Eyes PERRL and EOMs intact bilaterally Neck no lymphadenopathy Lymph Lymphatic: no lymphadenopathy noted Resp normal respiratory effort, normal air movement and clear to auscultation bilaterally Cardio Rate: tachycardic Rhythm: abnormal rhythm irregularly irregular GI normal to inspection, nondistended, normoactive bowel sounds, soft to palpation,non-tender and non-distended Extremity normal capillary refill Skin General Skin Exam: no breakdown Neuro CN's II-XII intact bilaterally, no focal motor deficits and no sensory deficits noted Motor Exam: strength 5/5 throughout Psych Mood & Affect: anxious Results Lab / Micro Data 06/11/24 18:45 06/11/24 18:45 Labs: Laboratory Results - last 24 hr 06/11/24 18:45: WBC 14.6 H, RBC 4.59, Hgb 14.9, Hct 45.0, MCV 98.0, MCH 32.5 H, MCHC 33.1, RDW Std Deviation 47.4 H, RDW Coeff of [place] 13.2, Plt Count 262, MPV 9.4, Immature Gran % (Auto) 0.500, Neut % (Auto) 69.7, Lymph % (Auto) 21.4, [place]% (Auto) 7.0, Eos % (Auto) 0.8, Baso % (Auto) 0.6, Absolute Neuts (auto) 10.2 H,Absolute Lymphs (auto) 3.12, Nucleated RBC % 0, Sodium 133, Potassium 3.9, Chloride 95 L, Carbon Dioxide 22.6, Anion Gap 15, BUN 23 H, Creatinine 1.00, Est GFR (MDRD) Non-Af 54 L, BUN/Creatinine Ratio 22.6 H, Glucose 113 H, Lactic Acid 3.1 H*, Calcium 10.3, Total Bilirubin 1.53 H, AST 39 H, ALT 18, Alkaline Phosphatase 80, Troponin T High Sens 64 H*, Total Protein 8.2, Albumin 3.8, Globulin 4.4 H, Albumin/Globulin Ratio 0.9, Lipase 20 06/11/24 18:50: Urine Color Yellow, Urine Clarity Cloudy, Urine pH 6.5, Ur Specific [place] 1.015, Urine Protein 100 H, Urine Glucose (UA) Normal, Urine Ketones Negative, Urine Occult Blood 25 H, Urine Nitrite Negative, Urine Bilirubin Negative, Urine Urobilinogen 8 H, Ur Leukocyte Esterase 25 H, Urine RBC 0 SEEN, Urine WBC 0-5 SEEN, Ur Squamous Epith Cells 0 SEEN, Amorphous Sediment 1+, Urine Bacteria 4+, Urine Mucus 0 SEEN 06/11/24 20:31: Troponin T Hi Sens 2 Hr 59 H*, Troponin T Hi Sens 2Hr Delta 5 Imaging Radiology Impression Chest X-Ray 06/11/24 16:58 IMPRESSION: 1. Cardiomegaly with mild pulmonary vascular congestion 2. 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 Reading Location: [facility] Brain CT 06/11/24 18:17 IMPRESSION: 1. No acute intracranial abnormality. 2. Age-appropriate volume loss and remote small vessel ischemic changes 3. Left parietal meningioma Reading Location: [facility] Assessment & Plan Assessment/Plan (1) Urinary tract infection: (2) Atrial fibrillation with RVR: (3) Meningioma, cerebral: (4) Sepsis: (5) Elevated troponin: PLAN: Plan 1. Confusion with altered mental status?admit patient to intensive care unit. Etiology likely caused by urinary tract infection, treat patient with IV Rocephin 1 g every 12 hours, will add neurologic assessments and may consider MRI if mental status does not improve as anticipated 2. Urinary tract infection?IV Rocephin as above. Culture was obtained and antibiotic therapy can be adjusted accordingly when resulted. IV fluids normal saline at a rate of 125 cc/h and repeat lactic acid per routine protocol. Will get CBC BMP in the a.m. 3. Atrial fibrillation with RVR?rate control with beta-marilyn and will add anticoagulation 4. DVT prophylaxis anticoagulation as above Charges/Coding Visit Charges Inpatient E&M: 66939 Init Hosp L2 06/11/24 6949 <Electronically signed by Mio Benitez MD> Cosigner Signature (if applicable): CC: Dr. Mio Benitez MD; Dr. Kodak Harding MD~ Signed [facility] Work Phone: 1(104) 443-952603-03-2025 Discharge summary [facility] Medical Records Department [address] [place] [address] Emergency Department Summary 06/11/24 MR#: [id number] Acct: [id number] Name: ESTEBAN WOODS Rep #:[id number] : 1935 88 From: Bob Irwin PCP: Dr. Kodak Harding MD Status:ADM IN Location: ICU ICU05-1 [facility] History of Present Illness Chief Complaint: [facility] Medical History (Updated 06/11/24 @ 22:[address] Mio Benitez MD) Hypertension Home Medications ?Medication ?Instructions ?Recorded ?Last Taken ?Type Unobtainable 06/11/24 Unknown History Allergy/AdvReac Type Severity Reaction Status Date / Time No Known Allergies Allergy Verified 06/11/24 20:12 Family History unable to obtain Surgical History unable to obtain Social History Smoking Status: Never smoker EXAM Physical Exam Const Vital Signs: 06/11/24 17:54 06/11/24 19:31 06/11/24 20:15 Temperature 98.6 F Temperature Source Temporal Pulse Rate 120 H 112 H 112 H Respiratory Rate 16 24 H 20 H Blood Pressure 175/130 H 171/111 H 174/106 H Blood Pressure Mean 145 131 128 Pulse Ox 93 94 95 Oxygen Delivery Method Room Air Nasal Cannula Nasal Cannula Oxygen Flow Rate (L/min) 2 2 06/11/24 20:45 06/11/24 21:12 06/11/24 22:00 Temperature 97.7 F L 97.8 F Temperature Source Oral Oral Pulse Rate 118 H 110 H 111 H Respiratory Rate 30 H 18 20 H Blood Pressure 161/115 H 167/127 H 181/121 H Blood Pressure Mean 130 140 141 Pulse Ox 93 94 98 Oxygen Delivery Method Nasal Cannula Nasal Cannula Oxygen Flow Rate (L/min) 2 2 MDM MDM MDM Narrative Medical decision making narrative: HISTORY OF PRESENT ILLNESS: 88-year-old female presents concern for expressive aphasia. Son notes last timeshe was noted to be normal was at approximately 10 AM on 06/10/2024. The majorityhistory is provided by the patient's son if she is confused. Today around noon she showed up at her her son's house and was having trouble finding her words. Notes confusion, saying non-sensical words. NO falls. no fever, no vomiting. REVIEW OF SYSTEMS: Pertinent positives: Word finding difficulty, confusion ROS are not reliable 2/2 to mental status changes. PHYSICAL EXAM: Nursing triage notes reviewed, Vital signs reviewed Constitutional: please see [facility] HENT: MMM Eyes: Pupils equal round and reactive to light, Extraocular muscles intact Neck: No stridor, no JVD, full neck ROM Lungs: Clear to auscultation, No wheezing or rales. No increased work of breathing, no conversational dyspnea, no accessory muscle use, no nasal flaring. No respiratory distress noted Heart: Regular rate and rhythm, No murmurs, No rubs and No gallops, 2+ distal pulses (radial, femoral, posterior tibial) in all extremities Abdomen: Soft, there is no tenderness, rigidity, rebound or guarding, no obviousperitoneal signs, no palpable pulsatile abdominal masses, no auscultated abdominal bruit : No CVAT Extremities: No edema Neuro: Alert, oriented to person and place but not time. (Per son baseline is alert and orient x 3), moves all 4 extremities, has normal speech. No obvious cranial nerve deficits. No obvious sensory or strength deficits. No issues with extremity or truncal ataxia. NIH of 0 Skin: No rash or lesions noted MEDICAL DECISION MAKING: Chief Complaint: Speech difficulty External records reviewed: Reviewed prior imaging studies. Reviewed echocardiogram from 2016 which showed ejection fraction of 55% Factors affecting care: none reported Social determinants of health: elderly History obtained from others: The patient's son Consults: Neurosurgery at [facility] Emergency is Dr. Donaldson, Internal Medicine (Dr. Crum) [facility] Narrative: The patient was initially hypertensive with a blood pressure 175/130, tachycardic with a heart rateof 120. Exam without focal neurologic deficits. The patient. Diffuse encephalopathic I considered the following differential diagnosis: ICH, infectious or metabolic encephalopathy, ACS, arrhythmia, anemia, electrolyte disturbance I obtained a broad lab and imaging workup to further elucidate etiology of patient's complaints. Patient was initially resuscitated from cc bolus ALL IMAGES (IF OBTAINED) HAVE BEEN PERSONALLY REVIEWED AND INTERPRETED BY MYSELF. EKG with normal axis, normal's, A-fib with RVR, no STEMI Initial troponin elevated, delta troponin continues to be elevated. This is likely a result of demand ischemia from A-fib with RVR, CHF and urosepsis. Chest x-ray shows evidence of pulmonary vascular congestion CT scan of the head is negative for ICH, there is noted meningioma CBC with leukocytosis suggestive recent abrasion, no anemia or thrombocytopenia BMP without significant electrolyte normalities, no MARITZA Initial lactate elevated consistent with endorgan hypoperfusion Urinalysis without nitrites however there is leukoesterase and 4+ bacteria consistent with likely UTI lipase is wnl indicating no pancreatic inflammation. Urine culture sent Treat UTI with ceftriaxone. Pulmonary vascular congestion new oxygen requirement of the patient ED stay after 500 cc bolus I gave her 40 mg of Lasix. Given CT scan Dr. Benitez initially recommended transfer. [facility] who noted the patient would not require neurosurgery intervention for meningioma. Recommended no transfer. Discussed this with Dr. Benitez who agreed to accept the patient. The patient and/or family, caregivers express understanding. The patient and/orfamily, caregivers agrees with the plan. Shared decision making: I will have a discussion with the patient and or visitors regarding risk/benefits of further testing or admission. They will be made aware of of the risk/benefits inherent in this decision they will be given the opportunity to voice understanding. Total critical care time today provided was at least 0 minutes. This excludes separately billable procedures. Critical care time (if documented) is secondary to the patient having high probability ofclinically significant/life threatening deterioration in the patient's condition which required my urgent intervention. Impression: 1. Altered mental status 2. Urosepsis 3. CHF exacerbation 4. NSTEMI 5. A-fib with Dispo: admit to ICU This note was generated with flaregames dictation software. It may contain incorrectwords, spelling, and punctuation that were not noted in review of the chart prior to signing. Lab Data Labs: Laboratory Results - last 24 hr 06/11/24 06/11/24 06/11/24 18:45 18:50 20:31 WBC 14.6 H RBC 4.59 Hgb 14.9 Hct 45.0 MCV 98.0 MCH 32.5 H MCHC 33.1 RDW Std Deviation 47.4 H RDW Coeff of Hong 13.2 Plt Count 262 MPV 9.4 Immature Gran % (Auto) 0.500 Neut % (Auto) 69.7 Lymph % (Auto) 21.4 [place] % (Auto) 7.0 Eos % (Auto) 0.8 Baso % (Auto) 0.6 Absolute Neuts (auto) 10.2 H Absolute Lymphs (auto) 3.12 Nucleated RBC % 0 Sodium 133 Potassium 3.9 Chloride 95 L Carbon Dioxide 22.6 Anion Gap 15 BUN 23 H Creatinine 1.00 Est GFR (MDRD) Non-Af 54 L BUN/Creatinine Ratio 22.6 H Glucose 113 H Lactic Acid 3.1 H* Calcium 10.3 Total Bilirubin 1.53 H AST 39 H ALT 18 Alkaline Phosphatase 80 Troponin T High Sens 64 H* Troponin T Hi Sens 2 Hr 59 H* Troponin T Hi Sens 2Hr Delta 5 Total Protein 8.2 Albumin 3.8 Globulin 4.4 H Albumin/Globulin Ratio 0.9 Lipase 20 Urine Color Yellow Urine Clarity Cloudy Urine pH 6.5 Ur Specific [place] 1.015 Urine Protein 100 H Urine Glucose (UA) Normal Urine Ketones Negative Urine Occult Blood 25 H Urine Nitrite Negative Urine Bilirubin Negative Urine Urobilinogen 8 H Ur Leukocyte Esterase 25 H Urine RBC 0 SEEN Urine WBC 0-5 SEEN Ur Squamous Epith Cells 0 SEEN Amorphous Sediment 1+ Urine Bacteria 4+ Urine Mucus 0 SEEN Radiography Diagnostic Testing: Clinical Impression(s) from Imaging Studies Chest X-Ray 06/11/24 16:58 IMPRESSION: 1. Cardiomegaly with mild pulmonary vascular congestion 2. 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 Reading Location: [facility] Brain CT 06/11/24 18:17 IMPRESSION: 1. No acute intracranial abnormality. 2. Age-appropriate volume loss and remote small vessel ischemic changes 3. Left parietal meningioma Reading Location: [facility] Discharge Plan Disposition Disposition: Acute Care Hospital [facility] Discharge Date/Time: 06/11/24 22:55 What to do if you have Problems For any increased pain, shortness of breath, bleeding, nausea or vomiting, chestpain, or any unexpected problems, contact your Primary Care Provider. Call [facility] ([phone]) or report tothe closest Emergency Room. Call 911 if necessary. 06/11/24 9898 Cosigner Signature (if applicable): CC: Dr. Kodak Harding MD ~ Signed [facility]03-03-2025 History and physical note [facility] Medical Records Department [address] [place] [address] History & Physical Exam 06/11/249 MR#: [id number] Acct: [id number] Name: ESTEBAN WOODS Rep #:[id number] : 1935 88 From: Mio Benitez MD PCP: Dr. Kodak Harding MD Status:ADM IN Location: ICU ICU05-1 HPI - General General Date of Admission: 06/11/24 Date of Service: 06/11/24 Chief Complaint: Altered mental status HPI Narrative ESTEBAN WOODS, is a 88 F who presents to the emergency room with chief complaint of altered mental status. Patient was last known normal on 06/10/2024 at 10 AM but today went to her son's house at noon when he says that she was unable to speak clearly and nonsensical in her verbal communication. Therewere no other focal neurologic deficits reported at that time and initial NIH score the hospital set [facility] was 0. Patient is a poor historian. Her laboratory studies were remarkable for an elevated white blood cell count of 14.6, hemoglobin 14.9,hematocrit 45, platelets 262, sodium 133, potassium 3.9, chloride 95, bicarb 22.6, BUN 23, creatinine 1.0, glucose 113, lactate elevated at 3.1 with 2 serialtroponins of 64 and 59, urinalysis positive for 4+ bacteria. CT scan was negative for acute findings however there was a noted left parietal meningioma reported for which neurosurgery at [facility] Was consulted by ER physician and felt not necessary to transfer patient that this was not causative of her current status. Chest x-ray showed cardiomegaly with vascular congestion and BNTP was pending at the time of my evaluation. Urinalysis was done prior to administration of antibiotics however blood cultures were not obtained prior to administration of Rocephin in the emergency room setting. Patient also has a significant history of atrial fibrillation for which she is currently in rapid ventricular response with a rate in the approximate 130 range. Patient will be admitted to the intens esdras care unit for treatment of urinary tract infection with sepsis [facility] Medical History (Updated 06/11/24 @ 22:[address] Mio Benitez MD) Hypertension Home Medications ?Medication ?Instructions ?Recorded ?Last Taken ?Type Unobtainable 06/11/24 Unknown History Allergy/AdvReac Type Severity Reaction Status Date / Time No Known Allergies Allergy Verified 06/11/24 20:12 Family History unable to obtain Surgical History unable to obtain Social History Smoking Status: Never smoker ROS Review of Systems ROS Unobtainable: due to mental status Vital Signs Vital Signs Vital Signs: 06/11/24 17:54 06/11/24 19:31 06/11/24 20:15 Temperature 98.6 F Temperature Source Temporal Pulse Rate 120 H 112 H 112 H Respiratory Rate 16 24 H 20 H Blood Pressure 175/130 H 171/111 H 174/106 H Blood Pressure Mean 145 131 128 Pulse Ox 93 94 95 Oxygen Delivery Method Room Air Nasal Cannula Nasal Cannula Oxygen Flow Rate (L/min) 2 2 06/11/24 20:45 06/11/24 21:12 06/11/24 22:00 Temperature 97.7 F L 97.8 F Temperature Source Oral Oral Pulse Rate 118 H 110 H 111 H Respiratory Rate 30 H 18 20 H Blood Pressure 161/115 H 167/127 H 181/121 H Blood Pressure Mean 130 140 141 Pulse Ox 93 94 98 Oxygen Delivery Method Nasal Cannula Nasal Cannula Oxygen Flow Rate (L/min) 2 2 Weight Weight: 159 lb 9.835 oz Body Mass Index (BMI) 29.2 Physical Exam Const alert General Appearance: cooperative Orientation / Consciousness: confused HEENT normocephalic and head/scalp atraumatic Eyes PERRL and EOMs intact bilaterally Neck no lymphadenopathy Lymph Lymphatic: no lymphadenopathy noted Resp normal respiratory effort, normal air movement and clear to auscultation bilaterally Cardio Rate: tachycardic Rhythm: abnormal rhythm irregularly irregular GI normal to inspection, nondistended, normoactive bowel sounds, soft to palpation,non-tender and non-distended Extremity normal capillary refill Skin General Skin Exam: no breakdown Neuro CN's II-XII intact bilaterally, no focal motor deficits and no sensory deficits noted Motor Exam: strength 5/5 throughout Psych Mood & Affect: anxious Results Lab / Micro Data 06/11/24 18:45 06/11/24 18:45 Labs: Laboratory Results - last 24 hr 06/11/24 18:45: WBC 14.6 H, RBC 4.59, Hgb 14.9, Hct 45.0, MCV 98.0, MCH 32.5 H, MCHC 33.1, RDW Std Deviation 47.4 H, RDW Coeff of Hong 13.2, Plt Count 262, MPV 9.4, Immature Gran % (Auto) 0.500, Neut % (Auto) 69.7, Lymph % (Auto) 21.4, [place]% (Auto) 7.0, Eos % (Auto) 0.8, Baso % (Auto) 0.6, Absolute Neuts (auto) 10.2 H,Absolute Lymphs (auto) 3.12, Nucleated RBC % 0, Sodium 133, Potassium 3.9, Chloride 95 L, Carbon Dioxide 22.6, Anion Gap 15, BUN 23 H, Creatinine 1.00, Est GFR (MDRD) Non-Af 54 L, BUN/Creatinine Ratio 22.6 H, Glucose 113 H, Lactic Acid 3.1 H*, Calcium 10.3, Total Bilirubin 1.53 H, AST 39 H, ALT 18, Alkaline Phosphatase 80, Troponin T High Sens 64 H*, Total Protein 8.2, Albumin 3.8, Globulin 4.4 H, Albumin/Globulin Ratio 0.9, Lipase 20 06/11/24 18:50: Urine Color Yellow, Urine Clarity Cloudy, Urine pH 6.5, Ur Specific [place] 1.015, Urine Protein 100 H, Urine Glucose (UA) Normal, Urine Ketones Negative, Urine Occult Blood 25 H, Urine Nitrite Negative, Urine Bilirubin Negative, Urine Urobilinogen 8 H, Ur Leukocyte Esterase 25 H, Urine RBC 0 SEEN, Urine WBC 0-5 SEEN, Ur Squamous Epith Cells 0 SEEN, Amorphous Sediment 1+, Urine Bacteria 4+, Urine Mucus 0 SEEN 06/11/24 20:31: Troponin T Hi Sens 2 Hr 59 H*, Troponin T Hi Sens 2Hr Delta 5 Imaging Radiology Impression Chest X-Ray 06/11/24 16:58 IMPRESSION: 1. Cardiomegaly with mild pulmonary vascular congestion 2. 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 [facility] 06/11/24 18:17 IMPRESSION: 1. No acute intracranial abnormality. 2. Age-appropriate volume loss and remote small vessel ischemic changes 3. Left parietal meningioma Reading Location: [facility] Assessment & Plan Assessment/Plan (1) Urinary tract infection: (2) Atrial fibrillation with RVR: (3) Meningioma, cerebral: (4) Sepsis: (5) Elevated troponin: PLAN: Plan 1. Confusion with altered mental status?admit patient to intensive care unit. Etiology likely caused by urinary tract infection, treat patient with IV Rocephin 1 g every 12 hours, will add neurologicassessments and may consider MRI if mental status does not improve as anticipated 2. Urinary tract infection?IV Rocephin as above. Culture was obtained and antibiotic therapy can beadjusted accordingly when resulted. IV fluids normal saline at a rate of 125 cc/h and repeat lacticacid per routine protocol. Will get CBC BMP in the a.m. 3. Atrial fibrillation with RVR?rate control with beta-marilyn and will add anticoagulation 4. DVT prophylaxis anticoagulation as above Charges/Coding Visit Charges Inpatient E&M: 09677 Init Hosp L2 06/11/24 2244 Cosigner Signature (if applicable): CC: Dr. Mio Benitez MD; Dr. Kodak Harding MD~ Signed [facility]03-03-2025 [facility] Medical Records Department [address] [place] [id number] History Physical Exam 06/11/249 MR#: [id number] Acct: [id number] Name: ESTEBAN WOODS Rep #: [id number] : 1935 88 From: Mio Benitez MD PCP: Dr. Kodak Harding MD Status:ADM IN Location: ICU ICU05-1 HPI - General General Date of Admission: 06/11/24 Date of Service: 06/11/24 Chief Complaint: Altered mental status HPI Narrative ESTEBAN WOODS, is a 88 F who presents to the emergency room with chief complaint of altered mental status. Patient was last known normal on 06/10/2024 at 10 AM but today went to her son's house at noon when he says that she was unable to speak clearly and nonsensical in her verbal communication. There were no other focal neurologic deficits reported at that time and initial NIH score the hospital setting was 0. Patient is a poor historian. Her laboratory studies were remarkable for an elevated white blood cell count of 14.6, hemoglobin 14.9, hematocrit 45, platelets 262, sodium 133, potassium 3.9, chloride 95, bicarb 22.6, BUN 23, creatinine 1.0, glucose 113, lactate elevated at 3.1 with 2 serial troponins of 64 and 59, urinalysis positive for 4+ bacteria. CT scan was negative for acute findings however there was a noted left parietal meningioma reported for which neurosurgery at [facility] Was consulted by ER physician and felt not necessary to transfer patient that this was not causative of her current status. Chest x-ray showed cardiomegaly with vascular congestion and BN TP was pending at the time of my evaluation. Urinalysis was done prior to administration of antibiotics however blood cultures were not obtained prior to administration of Rocephin in the emergency room setting. Patient also has a significant history of atrial fibrillation for which she is currently in rapid ventricular response with a rate in the approximate 130 range. Patient will be admitted to the intensive care unit for treatment of urinary tract infection with sepsis [facility] Medical History (Updated 06/11/24 @ 22:[address] Mio Benitez MD) Hypertension Home Medications ???Medication ???Instructions ???Recorded ???Last Taken ???Type Unobtainable 06/11/24 Unknown History Allergy/AdvReac Type Severity Reaction Status Date / Time No Known Allergies Allergy Verified 06/11/24 20:12 Family History unable to obtain Surgical History unable to obtain Social History Smoking Status: Never smoker ROS Review of Systems ROS Unobtainable: due to mental status Vital Signs Vital Signs Vital Signs: 06/11/24 17:54 06/11/24 19:31 06/11/24 20:15 Temperature 98.6 F Temperature Source Temporal Pulse Rate 120 H 112 H 112 H Respiratory Rate 16 24 H 20 H Blood Pressure 175/130 H 171/111 H 174/106 H Blood Pressure Mean 145 131 128 Pulse Ox 93 94 95 Oxygen Delivery Method Room Air Nasal Cannula Nasal Cannula Oxygen Flow Rate (L/min) 2 2 06/11/24 20:45 06/11/24 21:12 06/11/24 22:00 Temperature 97.7 F L 97.8 F Temperature Source Oral Oral Pulse Rate 118 H 110 H 111 H Respiratory Rate 30 H 18 20 H Blood Pressure 161/115 H 167/127 H 181/121 H Blood Pressure Mean 130 140 141 Pulse Ox 93 94 98 Oxygen Delivery Method Nasal Cannula Nasal Cannula Oxygen Flow Rate (L/min) 2 2 Weight Weight: 159 lb 9.835 oz Body Mass Index (BMI) 29.2 Physical Exam Const alert General Appearance: cooperative Orientation / Consciousness: confused HEENT normocephalic and head/scalp atraumatic Eyes PERRL and EOMs intact bilaterally Neck no lymphadenopathy Lymph Lymphatic: no lymphadenopathy noted Resp normal respiratory effort, normal air movement and clear to auscultation bilaterally Cardio Rate: tachycardic Rhythm: abnormal rhythm irregularly irregular GI normal to inspection, nondistended, normoactive bowel sounds, soft to palpation, non-tender and non- distended Extremity normal capillary refill Skin General Skin Exam: no breakdown Neuro CN's II-XII intact bilaterally, no focal motor deficits and no sensory deficits noted Motor Exam: strength 5/5 throughout Psych Mood Affect: anxious Results Lab / Micro Data 06/11/24 18:45 06/11/24 18:45 Labs: Laboratory Results - last 24 hr 06/11/24 18:45: WBC 14.6 H, RBC 4.59, Hgb 14.9, Hct 45.0, MCV 98.0, MCH 32.5 H, MCHC 33.1, RDW Std Deviation 47.4 H, RDW Coeff of Hong 13.2, Plt Count 262, MPV 9.4, Immature Gran % (Auto) 0.500, Neut % (Auto) 69.7, Lymph % (Auto) 21.4, [place] % (Auto) 7.0, Eos % (Auto) 0.8, Baso % (Auto) 0.6, Absolute Neuts (auto) 10.2 H, Absolute Lymphs (auto) 3.12, Nucleated RBC % 0, Sodium 133, Potassium 3.9, C hloride 95 L, Carbon Dioxide 22.6, Anion Gap 15, BUN 23 H, Creatinine 1.00, Est GFR (MDRD) Non-Af (more content not included)...[facility] 06-11-2024 Radiology Diagnostic study note [facility] Imaging Services [address] [place] [address] Chest 1 View (Portable) MR#: [id number] Acct: [id number] Name: ESTEBAN WOODS Rep #: [id number] : 1935 F 88 From: Luly Blackwood MD PCP: Dr. Kodak Harding MD Status: PRE ER Study:Chest 1 View (Portable) Date of Exam: 06/11/24 Exam# [id number] Ordering Dr: Tom Liu DO PROCEDURE: CHEST 1 VIEW (PORTABLE) REASON FOR EXAM: Confusion TECHNIQUE: Frontal and lateral views of the chest. COMPARISON: None. FINDINGS: Heart size is moderately enlarged. There are atherosclerotic calcifications of the thoracic aorta. There are chronic-appearing changes of both lungs. Degenerative changes are identified within the thoracic spine. RAD/Chest 1 View (Portable) IMPRESSION: 1. Cardiomegaly with mild pulmonary vascular congestion 2. 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 Reading Location: [facility] CC: Dr. Kodak Harding MD; Dr. Bob Liu DO ~ Stake Driver: Signed [facility]03-03-2025 Radiology Diagnostic study note [facility] Imaging Services [address] [place] [address] Brain/Head without Contrast MR#: [id number] Acct: [id number] Name: ESTEBAN WOODS Rep #: [id number] : 1935 F 88 From: Luly Blackwood MD PCP: Dr. Kodak Harding MD Status: PRE ER Study:Brain/Head without Contrast Date of Exa m: 06/11/24 Exam# [id number] Ordering Dr: Tom Liu DO EXAM: BRAIN/HEAD WITHOUT CONTRAST CLINICAL HISTORY: Confusion COMPARISON: None. TECHNIQUE: Noncontrast images of the head with multiplanar reconstructions. Dose reduction techniques were used including intermediate exposure control (AEC),iterative reconstruction technique, and/or mA and/or KV dose adjustments based on patient's size. FINDINGS: CT HEAD FINDINGS: No acute intracranial hemorrhage, mass, mass effect, midline shift or pathologicextra-axial fluid collection. Nonspecific periventricular white matter changes are noted No hydrocephalus. Age- appropriate cerebral volume and white matter. Visualized paranasal sinuses and mastoid air cells are clear. The calvarium is grossly intact. Round calcific mass in the left parietal convexity measuring 9 x [address]/Brain/Head without Contrast IMPRESSION: 1. No acute intracranial abnormality. 2. Age-appropriate volume loss and remote small vessel ischemic changes 3. Left parietal meningioma Reading Location: [facility] CC: Dr. Kodak Harding MD; Dr. Bob Liu DO ~ Stake Driver: Signed [facility]12-09-2024 NoteHNO ID: [id number] Author: KODAK HARDING MD Service: ? Author Type: Physician [...] Take 81 mg by mouth once daily. co-al-VG-vit P-[id number] (DAILY MULTIVITAMIN) 200-100-500 mcg cap Take 1 [...] (Temporal) Resp 20 Ht 157.5 cm (5' 2) Wt 71.2 kg (157 lb) SpO2 98% [...] Maintain good diet. Follow-up in 6 months. Kodak Harding MD March 19, 2024 March 19, 2024[facility]12-09[facility]24 History of Present illness Narrative* Kodak Harding MD - 03/19/2024 2:32 PM EST Subjective Esteban Woods is a 88 year [...] Take 81 mg by mouth once daily. cc-xb-AA-vit C-vrgpn-cqq-coQ10 (DAILY MULTIVITAMIN) 200-100-500 mcg cap Take 1 [...] Size: Regular Adult) Pulse 98 Temp 36.5 C (97.7 F) (Temporal) Resp 20 Ht 157.5 cm (5' 2) Wt 71.2 kg (157 lb) SpO2 98% BMI 28.72 kg/m Physical Exam Vitals reviewed. Constitutional: Appearance: Normal [...] Maintain good diet. Follow-up in 6 months. Kodak Harding MD March 19, 2024 March 19, 2024 * Gibran Lester LPN - 03/19/2024 1:43 PM EST Patient is in office for 6 month exam. Would like to discuss being more fatigued then normal. Would like paper copy of refill medications. Gibran Lester LPN March 19, 2024 1:52 PM documented in this encounterNorwalk [facility]12-09-2024 NoteHNO ID: [id number] Author: GIBRAN LESTER LPN Service: ? Author Type: LICENSED NURSE Type: Progress Notes Filed: 03/19/2024 14:35 Note Text: Patient is in office for 6 month exam. Would like to discuss being more fatigued then normal. Would like paper copy of refill medications. Gibran Lester LPN March 19, 2024 1:52 [facility]11-25-2024 Telephone encounter Note * Telephone Encounter - Althea Bernard LPN - 03/05/2024 9:12 AM EST Pharmacy faxed request for the following refill(s): [facility] 09/26/23 03/19/24 Requested Prescriptions Pending Prescriptions Disp Refills levothyroxine (SYNTHROID) 125 mcg tablet [Pharmacy Med Name: Levothyroxine Sodium Oral Tablet 125 MCG] 90 tablet 3 Sig: TAKE 1 TABLET EVERY DAY verapamil SR (CALAN SR) 180 mg CR tablet [Pharmacy Med Name: Verapamil HCl ER Oral Tablet Extended Release 180 MG] 180 tablet 3 Sig: TAKE 2 TABLETS ONE TIME DAILY losartan-hydroCHLOROthiazide (HYZAAR) 100-25 mg per tablet [Pharmacy Med Name: Losartan Potassium-HCTZ Oral Tablet 100-25 MG] 90 tablet 3 Sig: TAKE 1 TABLET EVERY DAY nebivolol (BYSTOLIC) 5 mg tablet [Pharmacy Med Name: Nebivolol HCl Oral Tablet 5 MG] 90 tablet 3 Sig: TAKE 1 TABLET EVERY DAY Althea Bernard LPN March 05, 2024 9:15 AM [facility]11-25-2024 Miscellaneous Notes* Telephone Encounter - Althea Bernard LPN - 03/05/2024 9:12 AM EST Pharmacy faxed request for the following refill(s): [facility] 09/26/23 03/19/24 Requested Prescriptions Pending Prescriptions Disp Refills levothyroxine (SYNTHROID) 125 mcg tablet [Pharmacy Med Name: Levothyroxine Sodium Oral Tablet 125 MCG] 90 tablet 3 Sig: TAKE 1 TABLET EVERY DAY verapamil SR (CALAN SR) 180 mg CR tablet [Pharmacy Med Name: Verapamil HCl ER Oral Tablet Extended Release 180 MG] 180 tablet 3 Sig: TAKE 2 TABLETS ONE TIME DAILY losartan-hydroCHLOROthiazide (HYZAAR) 100-25 mg per tablet [Pharmacy Med Name: Losartan Potassium-HCTZ Oral Tablet 100-25 MG] 90 tablet 3 Sig: TAKE 1 TABLET EVERY DAY nebivolol (BYSTOLIC) 5 mg tablet [Pharmacy Med Name: Nebivolol HCl Oral Tablet 5 MG] 90 tablet 3 Sig: TAKE 1 TABLET EVERY DAY Althea Bernard LPN March 05, 2024 9:15 AM documented in this encounterNorwalk [facility] Hospital06-17-2024 Instructions* Patient Instructions* Kodak Harding MD - 09/26/2023 1:43 PM EDT Screening schedule The following prevention plan is recommended: DTaP,Tdap,Td Vaccine(1 - Tdap) Never done Shingrix Vaccine(1 of 2) Never done RSV Vaccine(1 - 1-dose 60+ series) Never done Bone Density Screening Never done Pneumococcal Vaccine: 65+(1 of 1 - PCV) Never done Covid-19 Vaccine(2022- season) due on 12/10/2022 Advance Directive Discussion due on 04/11/2023 Behavioral Health Screening Never done WHAT YOU CAN DO TO PREVENT FALLS [...] review all the medicines you take, even cvnt-jka-qryealk medicines. As you get older, the way medicines work in your body can change. Some medicines, or combinations of medicines, can make you sleepy or dizzy andcan cause you to fall. 3. Have your [...] apply if you have certain medical conditions. documented in this encounterNorwalk [facility] Hospital06-17-2024 History of Present illness Narrative* Kodak Harding MD - 09/26/2023 1:35 PM EDT Images from the original note were not included. Subjective Esteban Woods is a 88 year old female. Esteban presents today for her Medicare wellness visit. Additionally she follows up for multiple medical problems. See list. Her chronic medical problems been stable. Her blood pressure is under good control on her current regimen. She denies any palpitations orrapid heart rate. Review of Systems Constitutional: Negative. HENT: Negative. [...] Never Smokeless tobacco: Never Vaping Use Vaping Use: Never used Substance Use Topics Alcohol use: Never Drug [...] CR tablet Take 2 tablets by mouth once daily. aspirin, enteric coated (ECOTRIN LOW STRENGTH) 81 mg EC tablet Take 81 mg by mouth once daily. eh-ja-NL-vit Z-[id number]-bmk-coQ10 (DAILY MULTIVITAMIN) 200-100-500 mcg cap Take 1 capsule by mouth once daily. Allergies, past surgical history, family history and past medical history were reviewed per this encounter. Medications were reviewed and verified. Objective BP 128/82 (BP Site: Left Arm, BP Position: Sitting, BP Cuff Size: Regular Adult) Pulse 64 Temp 36.4 C (97.6 F) (Temporal) Resp 18 Ht 157.5 cm (5' 2) Wt 73 kg (161 lb) SpO2 98% BMI 29.45 kg/m Physical Exam Vitals reviewed. Constitutional: Appearance: Normal appearance. HENT: Head: Normocephalic and atraumatic. Nose: Nose normal. Eyes: Extraocular Movements: Extraocular movements intact. Pupils: Pupils are equal, round, and reactive to light. Cardiovascular: Rate and Rhythm: Normal rate and regular rhythm. Pulmonary: Effort: Pulmonary effort is normal. Breath [...] and Affect: Mood normal. Behavior: Behavior normal. Assessment and Plan Encounter Diagnosis ICD-10-CM 1. Wellness examination Z00.00 2. Advanced directives, counseling/discussion Z71.89 ADVANCE CARE PLAN DISCUSSION 3. Hypertension, essential I10 4. Paroxysmal atrial fibrillation (HCC) I48.0 5. Acquired hypothyroidism E03.9 6. Osteoarthritis of knee, unspecified laterality, unspecified osteoarthritis type M17.9 All open preventative health maintenance topics discussed with patient in detail. This includes risks and benefits regarding vaccines, cancer screening, healthy life style, and diet. Continue present medications. Check labs as above. Monitor blood pressure regularly. Exercise as tolerated. Maintain good diet. Follow-up in 6 months. Medicare Health Risk Assessment General Health Very good Exercise: Minutes/Day 30 min Exercise: Days/Week 3 days Alcohol: Daily Use Never Alcohol: Drinks/Day Patient does not drink Alcohol: 6 or more drinks Never Feel off balance Yes Concerns: Teeth/Dentures No Concerns: Sexual function Troubled by feelings None of the above Frequency: Eating healthy diet Nearly every day ADLs requiring help None of the above Safety precautions in home/vehicle Yes Smoke, vape, [...] this time Cognitive screening Mini Cog Score: 4 Cognitive screening reviewed and No further action needed (score 3-5). Functional Observation Was the patient's Timed Up & Go test unsteady or ? 12 seconds? No Advance Care Planning Surrogate decision maker documented and/or advance directives scanned in chart Measurements BP 128/82 Pulse 64 Temp (Src) 97.6 (Temporal) Resp 18 Ht 5' 2 (1.58m) Wt 161 lb (73.0kg) SpO2 98% BMI 29.44 kg/(m^2). Vision Screening: Follows with optometry/ophthalmology Assessment/Plan Medicare annual wellness visit, subsequent (Z00.00) - Counseled on healthy diet and regular exercise - Fall avoidance information provided - Personalized prevention plan provided * Kathy Garrett LPN - 09/26/2023 1:20 PM EDT Patient in the office today for an annual Medicare Wellness exam. Health Maintenance Due: DTaP,Tdap,Td Vaccine(1 - Tdap) declined Shingrix Vaccine(1 of 2) declined RSV Vaccine(1 - 1-dose 60+ series) declined Bone Density Screening Pneumococcal Vaccine: 65+(1 of 1 - PCV) declined Covid-19 Vaccine(3 - 2022-24 season) declined No refills needed Kathy Garrett LPN September 26, 2023 1:11 PM documented in this encounterNorwalk [facility] Hospital12-13-2023 History of Present illness Narrative* Kodak Harding MD - 03/23/2023 1:27 PM EST Subjective Esteban Woods is a 87 year old female. Esteban presents today for follow-up for multiple medical problems. See list. Her chronic medical problems are stable. Her blood pressure is under good control onher current regimen. She has no new complaints today. She [...] Never Smokeless tobacco: Never Vaping Use Vaping Use: Never used Substance Use Topics Alcohol use: Never Drug use: Never ALLERGIES Allergen Reactions Cigarette Smoke Unknown MEDICATIONS: aspirin, enteric coated (ECOTRIN LOW STRENGTH) 81 mg EC tablet Take 81 mg by mouth once daily. mh-ai-KH-vit P-fcojx-yye-coQ10 (DAILY MULTIVITAMIN) 200-100-500 mcg cap Take 1 capsule by mouth once daily. levothyroxine (SYNTHROID) 125 mcg tablet Take 1 tablet by mouth once daily. nebivolol (BYSTOLIC) 5 mg tablet Take 1 tablet by mouth once daily. losartan-hydroCHLOROthiazide (HYZAAR) 100-25 mg per tablet Take 1 tablet by mouth once daily. verapamil SR (CALAN SR) 180 mg CR tablet Take 2 tablets by mouth once daily. Allergies, past surgical history, family history and past medical history were reviewed per this encounter. Medications were reviewed and verified. Objective BP 136/82 (BP Site: Left Arm, BP Position: Sitting, BP Cuff Size: Regular Adult) Pulse 72 Temp 36.4 C (97.6 F) (Temporal) Resp 18 Ht 157.5 cm (5' 2) Wt 74.8 kg (165 lb) SpO2 97% BMI 30.18 kg/m Physical Exam Vitals reviewed. Constitutional: Appearance: Normal appearance. HENT: Head: Normocephalic and atraumatic. Nose: Nose normal. Eyes: Extraocular Movements: Extraocular movements intact. Pupils: Pupils are equal, round, and reactive to light. Cardiovascular: Rate and Rhythm: Normal rate and regular rhythm. Pulmonary: Effort: Pulmonary effort is normal. Breath [...] and Affect: Mood normal. Behavior: Behavior normal. Assessment and Plan Encounter Diagnosis ICD-10-CM 1. Paroxysmal atrial fibrillation (HCC) I48.0 2. Hypertension, essential I10 3. Acquired hypothyroidism E03.9 4. Osteoarthritis of knee, unspecified laterality, unspecified osteoarthritis type M17.9 Continue present medications. Check TSH. Follow-up in 6 months. Kodak Harding MD * Kathy Garrett LPN - 03/23/2023 1:10 PM EST Patient is in office today for 6 month exam. No current complaints or concerns Kathy Garrett LPN March 23, 2023 1:03 PM documented in this encounterNorwalk [facility] Hospital06-27-2023 Miscellaneous Notes* Telephone Encounter - Farida Rodney - 10/05/2022 11:08 AM EDT Population Health informed office that the following orders need generated for the care gaps to close for the year. -Need order for bone density testing. Need documentation that vaccines were discussed risks vs benefits. documented in this encounterNorwalk [facility] Hospital12-12-2022 History of Present illness Narrative* Kodak Harding MD - 03/22/2022 1:32 PM EST This note was created using [employer] Of [employer]. Subjective Erin Woods is a 86 year old female. Erin presents today for follow-up for multiple medical problems. See list. Her chronic medical problems are stable. Blood pressures been under excellent control on her current regimen. She is compliant with her Synthroid for treatment of her hypothyroidism. She has no new complaints today. She is feeling well. Review of Systems Constitutional: Negative. HENT: Negative. Eyes: Negative. Respiratory: Negative. Cardiovascular: Negative. Gastrointestinal: Negative. Endocrine: Negative. Genitourinary: Negative. Musculoskeletal: Negative. Skin: Negative. Allergic/Immunologic: Negative. Neurological: Negative. Hematological: Negative. Psychiatric/Behavioral: Negative. Objective BP 138/86 (BP Site: Left Arm, BP Position: Sitting, BP Cuff Size: Large Adult) Pulse 64 Temp 36.1 C (96.9 F) (Temporal) Resp 18 Ht 157.5 cm (5' 2) Wt 79.5 kg (175 lb 6 oz) SpO2 97% BMI32.08 kg/m Physical Exam Vitals reviewed. Constitutional: Appearance: Normal appearance. HENT: Head: Normocephalic and atraumatic. Nose: Nose normal. Eyes: Extraocular Movements: Extraocular movements intact. Pupils: Pupils are equal, round, and reactive to light. Cardiovascular: Rate and Rhythm: Normal rate and regular rhythm. Pulmonary: Effort: Pulmonary effort is normal. Breath [...] and Affect: Mood normal. Behavior: Behavior normal. Assessment and Plan Erin was seen today for 6 month exam. Diagnoses and all orders for this visit: Paroxysmal atrial fibrillation (HCC) Primary hypertension - BASIC METABOLIC PNL; Future Acquired hypothyroidism - TSH BLD; Future Osteoarthritis of knee, unspecified laterality, unspecified osteoarthritis type Other orders - levothyroxine (SYNTHROID) 125 mcg tablet; Take 1 tablet by mouth once daily. - losartan-hydroCHLOROthiazide (HYZAAR) 100-25 mg per tablet; Take 1 tablet by mouth once daily. - nebivolol (BYSTOLIC) 5 mg tablet; Take 1 tablet by mouth once daily. - verapamil SR (CALAN SR, ISOPTIN SR) 180 mg CR tablet; Take 2 tablets by mouth once daily. * Kathy Garrett LPN - 03/22/2022 1:18 PM EST Patient is in office today for 6 month exam, no complaints or concerns at this time. Patient stated she needs all refills as printed scripts Kathy Garrett LPN March 22, 2022 1:23 PM [facility] in [facility] encounterPrem[facility] noteNo assessment information availableWVan Wert County Hospital Work Phone: Evaluation note* Diagnosis Paroxysmal atrial fibrillation (HCC)- Primary Atrial fibrillation Primary hypertension Unspecified essential hypertension Acquired hypothyroidism Unspecified hypothyroidism Osteoarthritis of knee, unspecified laterality, unspecified osteoarthritis type documented in this encounter [facility] note* Diagnosis Paroxysmal atrial fibrillation (HCC)- Primary Atrial fibrillation Hypertension, essential Unspecified essential hypertension Acquired hypothyroidism Unspecified hypothyroidism Osteoarthritis of knee, unspecified laterality, unspecified osteoarthritis type documented in this encounter [facility] note* Diagnosis Wellness examination- Primary Advanced directives, counseling/discussion Other specified counseling Hypertension, essential Unspecified essential hypertension Paroxysmal atrial fibrillation (HCC) Atrial fibrillation Acquired hypothyroidism Unspecified hypothyroidism Osteoarthritis of knee, unspecified laterality, unspecified osteoarthritis type Screening for deficiency anemia Screening for other and unspecified deficiency anemia Pure hypercholesterolemia Medicare annual wellness visit, subsequent Routine general medical examination at a health care facility documented in this encounter [facility] note* Diagnosis Hypertension, essential- Primary Unspecified essential hypertension Paroxysmal atrial fibrillation (HCC) Atrial fibrillation documented in this encounter [facility] note* Diagnosis Persistent atrial fibrillation (HCC)- Primary Atrial fibrillation Hypertension, essential Unspecified essential hypertension Sepsis, due to unspecified organism, unspecified whether acute organ dysfunction present (HCC) Acute respiratory failure with hypoxia (HCC) Acute respiratory failure Acute lower UTI Urinary tract infection, site not specified Acute heart failure with mildly reduced ejection fraction (HFmrEF, 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) prison current use of anticoagulant therapy Long-term (current) use of anticoagulants documented in this encounter [facility] note* Diagnosis Paroxysmal atrial fibrillation (HCC)- Primary Atrial fibrillation Hypertension, essential Unspecified essential hypertension Acquired hypothyroidism Unspecified hypothyroidism Mixed hyperlipidemia prison (current) use of anticoagulants Long-term (current) use of anticoagulants documented in this encounter [facility] note* Diagnosis Encounter for counseling regarding advance directives- Primary Screening for depression Encounter for screening examination for other mental health and behavioral disorders Generalized weakness Other malaise and fatigue Acquired hypothyroidism Unspecified hypothyroidism Mixed hyperlipidemia Hypertension, essential Unspecified essential hypertension 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 of anticoagulants Long-term (current) use of anticoagulants Persistent atrial fibrillation (HCC) Atrial fibrillation Screening for deficiency anemia Screening for other and unspecified deficiency anemia Primary osteoarthritis involving multiple joints Medicare annual wellness visit, subsequent Routine general medical examination at a health care facility documented in this encounter [facility] note* Diagnosis Onset Date Resolution Status Admit Date Abnormal CXR acute November 05 10:58am QUACH (dyspnea on exertion) acute November 05, 2024 10:58am [facility] Work Phone: Evaluation note* Diagnosis QUACH (dyspnea on exertion)- Primary Other dyspnea and respiratory abnormality [facility] Discharge instructionsAdditional Instructions Antibiotics as directed. Return with fever, increased redness of right lower extremity, new or worsening symptoms. Follow-up with pulmonology as soon as possible.[facility] Work Phone: Reason for referral (narrative)No reason for referral information availableWVan Wert County Hospital Work Phone: Summary Purpose Family History Relationship Condition Age at Onset Recorded Date/T [place] mother Diabetes mellitus Unknown sister Diabetes mellitus Unknown brother Malignant neoplasm Unknown Cardiac disease Unknown Advance Directives Advance Directive Response Recorded Date/ Time Living Will Yes June 11, 2024 11:00pm Power of Insurance Verification Rep Yes June 11 11:00pm Name of Medical Power of Insurance Verification Rep Benjamín mccullough June 11, 2024 11:00pm Advance Directive Response Recorded Date/ Time Do you have a Healthcare Power of Insurance Verification Rep? No October 22, 2024 4:12pm Chief Complaint and Reason for Visit Chief Complaint Admit Date UROSEPSIS, CHF, AFIB WITH RVR June 11, 2024 10:29pm URINARY TRACT INFETION WITH SEPSIS, AJ GE IN June 11, 2024 10:45pm URINARY TRACT INFETION WITH SEPSIS, AJ GE IN June 12, 2024 9:00am URINARY TRACT INFETION WITH SEPSIS, AJ GE IN June 13, 2024 9:23am URINARY TRACT INFETION WITH SEPSIS, AJ GE IN June 14, 2024 10:02am URINARY TRACT INFETION WITH SEPSIS, AJ GE IN June 15, 2024 1:43pm Reason for Visit Admit Date Atrial fibrillation with RVR June 11, 2024 10:45pm Elevated troponin June 11, 2024 10:4 5pm Meningioma, cerebral June 11, 2024 10: 45pm Sepsis June 11, 2024 10:4 5pm Urinary tract infection June 11, 2024 10:45pm Chief Complaint Admit Date SOB, Edema October 22, 2024 2:53 pm Chief Complaint Admit Date SOB, Edema October 22, 2024 2:53 pm Hospital FU November 05, 2024 10:5 8am Reason for Visit Admit Date Abnormal CXR November 05, 2024 10:5 8am QUACH (dyspnea on exertion) November 05 10:58am Additional Source Comments INFORMATION SOURCE (unrecogn ized section and content) DATE CREATED AUTHOR 03/22/2018 [facility] Margaux Mohan DATE CREATED AUTHOR AUTHOR'S ORGANIZ ATION 10/02/2024 [facility] DATE CREATED AUTHOR AUTHOR'S ORGANIZ ATION 11/06/2024 [facility] DATE CREATED AUTHOR AUTHOR'S ORGANIZ ATION 11/07/2024 [facility] nter Goals (unrecognized section and content) Goals may be documented in a n alternate sectionGoals may be documented in an alternate sectionGoals may be documented in an alternate section Source Comments (unrecognize d section and content) In the event this informatio n is protected by the Federal Confidentiality of Alcohol and Drug Abuse Patient Records regulations: The Federal rules restrict any use of the information to criminally investigate or prosecute any alcohol or drug abuse patient.[facility] HospitalIn the event this information is protected by the Federal Confidentiality of Alcohol and Drug Abuse Patient Records regulations: The Federal rules restrict any use of the information to criminally investigate or prosecute any alcohol or drug abuse patient.[facility] HospitalIn the event this information is protected by the Federal Confidentiality of Alcohol and Drug Abuse Patient Records regulations: The Federal rules restrict any use of the information to criminally investigate or prosecute any alcohol or drug abuse patient.[facility] HospitalIn the event this information is protected by the Federal Confidentiality of Alcohol and Drug Abuse Patient Records regulations: The Federal rules restrict any use of the information to criminally investigate or prosecute any alcohol or drug abuse patient.[facility] the event this information is protected by the Federal Confidentiality of Alcohol and Drug Abuse Patient Records regulations: The Federal rules restrict any use of the information to criminally investigate or prosecute any alcohol or drug abuse patient.[facility] HospitalIn the event this information is protected by the Federal Confidentiality of Alcohol and Drug Abuse Patient Records regulations: The Federal rules restrict any use of the information to criminally investigate or prosecute any alcohol or drug abuse patient.[facility] HospitalIn the event this information is protected by the Federal Confidentiality of Alcohol and Drug Abuse Patient Records regulations: The Federal rules restrict any use of the information to criminally investigate or prosecute any alcohol or drug abuse patient.[facility]In the event this information is protected by the Federal Confidentiality of Alcohol and Drug Abuse Patient Records regulations: The Federal rules restrict any use of the information to criminally investigate or prosecute any alcohol or drug abuse patient.[facility] HospitalIn the event this information is protected by the Federal Confidentiality of Alcohol and Drug Abuse Patient Records regulations: The Federal rules restrict any use of the information to criminally investigate or prosecute any alcohol or drug abuse patient.[facility] HospitalIn the event this information is protected by the Federal Confidentiality of Alcohol and Drug Abuse Patient Records regulations: The Federal rules restrict any use of the information to criminally investigate or prosecute any alcohol or drug abuse patient.[facility] HospitalIn the event this information is protected by the Federal Confidentiality of Alcohol and Drug Abuse Patient Records regulations: The Federal rules restrict any use of the information to criminally investigate or prosecute any alcohol or drug abuse patient.[facility] HospitalIn the event this information is protected by the Federal Confidentiality of Alcohol and Drug Abuse Patient Records regulations: The Federal rules restrict any use of the information to criminally investigate or prosecute any alcohol or drug abuse patient.[facility] HospitalIn the event this information is protected by the Federal Confidentiality of Alcohol and Drug Abuse Patient Records regulations: The Federal rules restrict any use of the information to criminally investigate or prosecute any alcohol or drug abuse patient.[facility] HospitalIn the event this information is protected by the Federal Confidentiality of Alcohol and Drug Abuse Patient Records regulations: The Federal rules restrict any use of the information to criminally investigate or prosecute any alcohol or drug abuse patient.[facility] HospitalIn the event this information is protected by the Federal Confidentiality of Alcohol and Drug Abuse Patient Records regulations: The Federal rules restrict any use of the information to criminally investigate or prosecute any alcohol or drug abuse patient.[facility] HospitalIn the event this information is protected by the Federal Confidentiality of Alcohol and Drug Abuse Patient Records regulations: The Federal rules restrict any use of the information to criminally investigate or prosecute any alcohol or drug abuse patient.[facility] HospitalIn the event this information is protected by the Federal Confidentiality of Alcohol and Drug Abuse Patient Records regulations: The Federal rules restrict any use of the information to criminally investigate or prosecute any alcohol or drug abuse patient.[facility] HospitalIn the event this information is protected by the Federal Confidentiality of Alcohol and Drug Abuse Patient Records regulations: The Federal rules restrict any use of the information to criminally investigate or prosecute any alcohol or drug abuse patient.[facility] Hospital[facility] the event this information is protected by the Federal Confidentiality of Alcohol and Drug Abuse Patient Records regulations: The Federal rules restrict any use of the information to criminally investigate or prosecute any alcohol or drug abuse patient.[facility] HospitalIn the event this information is protected by the Federal Confidentiality of Alcohol and Drug Abuse Patient Records regulations: The Federal rules restrict any use of the information to criminally investigate or prosecute any alcohol or drug abuse patient.[facility] the event this information is protected by the Federal Confidentiality of Alcohol and Drug Abuse Patient Records regulations: The Federal rules restrict any use of the information to criminally investigate or prosecute any alcohol or drug abuse patient.[facility] Reason for Visit (unrecogniz ed section and content) Reason Comments 6 Month Exam Reason Comments Population Health Navigation Outreach Reason Comments Medicare Wellness Exam Reason Comments Refill Request Reason Comments Transition Of Care Reason Comments Follow Up Reason Onset 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 Reason Comments Patient Update Reason Comments Orders Care Teams (unrecognized sec tion and content) 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 [employer] Relationship Specialty Start Date End Date Kodak Harding MD [address] [place], [place] [id number] PCP - General Family Medicine 04/15/22 Supervisor [employer] Relationship Specialty Start Date End Date Kodak Harding MD [address] [place] [address] PCP - General Family Medicine 04/15/22 Supervisor [employer] Relationship Specialty Start Date End Date Kodak Harding MD [address] [facility] [place] [address] PCP - General Family Medicine 04/15/22 Supervisor [employer] Products Relationship Specialty Start Date End Date Kodak Harding MD [address] [place] [address] PCP - General Family Medicine 04/15/22 Supervisor [employer] Products Relationship Specialty Start Date End Date Kodak Harding MD [address] [place] [address] PCP - General Family Medicine 04/15/22 Supervisor [employer] Products Relationship Specialty Start Date End Date Kodak Harding MD [address] [facility] [place] [address] PCP - General Family Medicine 04/15/22 Supervisor [employer] Relationship Specialty Start Date End Date Kodak Harding MD [address] [place] [address] PCP - General Family Medicine 04/15/22 Arcelia Weber, rn testing Senior Sas Developer 06/18/24 Supervisor [employer] Relationship Specialty Start Date End Date Kodak Harding MD [address] [facility] [place] [address] PCP - General Family Medicine 04/15/22 Arcelia Weber, rn testing Senior Sas Developer 06/18/24 Supervisor [employer] Products Relationship Specialty Start Date End Date Kodak Harding MD [address] [place] [address] PCP - General Family Medicine 04/15/22 Arcelia Weber, rn testing Senior Sas Developer 06/18/24 Supervisor [employer] Relationship Specialty Start Date End Date Kodak Harding MD [address] [place] [address] PCP - General Family Medicine 04/15/22 Arcelia Weber, rn testing Senior Sas Developer 06/18/24 07/05/24 Team Status: Active Member Role Status Dates Dr. Kodak Harding MD Primary Care Provider Active Team Status: Active Member Role Status Dates Dr. Kodak Harding MD Primary Care Provider Active Start: June 11, 2024 Dr. Bob Liu DO Emergency Provider Active Start: June 11, 2024 Dr. Mio Benitez MD Admit Provider Active Star t: June 11, 2024 Dr. Mio Benitez MD Attending Provider Active Start: June 11, 2024 Dr. Mio Benitez MD Referring Provider Active Start: June 11, 2024 Dr. Mio Benitez MD Other Provider Active Star t: June 11, 2024 Team Status: Inactive Member Role Status Dates Dr. Kodak Harding MD Primary Care Provider Active Start: June 11, 2024 End: June 15, 2024 Dr. Bob Liu DO Emergency Provider Active Start: June 11, 2024 End: June 15, 2024 Dr. Mio Benitez MD Admit Provider Active Star t: June 11, 2024 End: June 15, 2024 Dr. Mio Benitez MD Referring Provider Active Start: June 11, 2024 End: June 15, 2024 Dr. Mio Benitez MD Other Provider Active Star t: June 11, 2024 End: June 15, 2024 Dr. Aster Ramsey MD Attending Provider Active Start: June 11, 2024 End: June 15, 2024 Dr. Junaid Travis MD Other Provider Active Start: June 11, 2024 End: June 15, 2024 Team Status: Active Member Role Status Dates Dr. Kodak Harding MD Primary Care Provider Active Start: June 12, 2024 Dr. Bob Liu DO Emergency Provider Active Start: June 12, 2024 Dr. Mio Benitez MD Admit Provider Active Star t: June 12, 2024 Dr. Mio Benitez MD Referring Provider Active Start: June 12, 2024 Dr. Mio Benitez MD Other Provider Active Star t: June 12, 2024 Dr. Junaid Travis MD Attending Provider Active Start: June 12, 2024 Dr. Junaid Travis MD Other Provider Active Start: June 12, 2024 Team Status: Active Member Role Status Dates Dr. Kodak Harding MD Primary Care Provider Active Start: June 12, 2024 Dr. Demetrius Terrell MD Attending Provider Active Start: June 12, 2024 Team Status: Active Member Role Status Dates Dr. Kodak Harding MD Primary Care Provider Active Start: June 13, 2024 Dr. Bob Liu DO Emergency Provider Active Start: June 13, 2024 Dr. Mio Benitez MD Admit Provider Active Star t: June 13, 2024 Dr. Mio Benitez MD Referring Provider Active Start: June 13, 2024 Dr. Mio Benitez MD Other Provider Active Star t: June 13, 2024 Dr. Aster Ramsey MD Attending Provider Active Start: June 13, 2024 Dr. Aster Ramsey MD Other Provider Active St art: June 13, 2024 Dr. Junaid Travis MD Other Provider Active Start: June 13, 2024 Team Status: Active Member Role Status Dates Dr. Kodak Harding MD Primary Care Provider Active Start: June 14, 2024 Dr. Bob Liu DO Emergency Provider Active Start: June 14, 2024 Dr. Mio Benitez MD Admit Provider Active Star t: June 14, 2024 Dr. Mio Benitez MD Referring Provider Active Start: June 14, 2024 Dr. Mio Benitez MD Other Provider Active Star t: June 14, 2024 Dr. Aster Ramsey MD Attending Provider Active Start: June 14, 2024 Dr. Aster Ramsey MD Other Provider Active St art: June 14, 2024 Dr. Junaid Travis MD Other Provider Active Start: June 14, 2024 Team Status: Active Member Role Status Dates Dr. Kodak Harding MD Primary Care Provider Active Start: June 15, 2024 Dr. Bob Liu DO Emergency Provider Active Start: June 15, 2024 Dr. Mio Benitez MD Admit Provider Active Star t: June 15, 2024 Dr. Mio Benitez MD Referring Provider Active Start: June 15, 2024 Dr. Mio Benitez MD Other Provider Active Star t: June 15, 2024 Dr. Aster Ramsey MD Attending Provider Active Start: June 15, 2024 Dr. Aster Ramsey MD Other Provider Active St art: June 15, 2024 Dr. 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 Kodak Harding MD Primary Care Provider Active Team Status: Inactive Member Role/Relationship Status Dates Dr. Kodak Harding MD Primary Care Provider Active Start: October 22, 2024 End: October 22, 2024 Jeyson Mayer MD Referring Provider Active Star t: October 22, 2024 End: October 22, 2024 Jeyson Mayer MD Emergency Provider Active Star t: October 22, 2024 End: October 22, 2024 Supervisor [employer] Relationship Specialty Start Date End Date Kodak Harding MD [address] [place] [address] PCP - General Family Medicine 04/15/22 Supervisor [employer] Relationship Specialty Start Date End Date Kodak Harding MD [address] [place], [place] [id number] PCP - [facility] 04/15/22 Supervisor [employer] Relationship Specialty Start Date End Date Kodak Harding MD [address] [place] [address] PCP - [facility] 04/15/22 Team Status: Inactive Member Role/Relationship Status Dates Dr. Kodak Harding MD Primary Care Provider Active Start: October 22, 2024 End: October 22, 2024 Jeyson Mayer MD Attending Provider Active Star t: October 22, 2024 End: October 22, 2024 Jeyson Mayer MD Referring Provider Active Star t: October 22, 2024 End: October 22, 2024 Jeyson Mayer MD Emergency Provider Active Star t: October 22, 2024 End: October 22, 2024 Team Status: Inactive Member Role/Relationship Status Dates Dr. Kodak Harding MD Primary Care Provider Active Start: November 05, 2024 End: November 05, 2024 Dr. Kodak Harding MD Referring Provider Active Start: November 05, 2024 End: November 05, 2024 Dr. Tamir Cardoso DO Attending Provider Active S tart: November 05, 2024 End: November 05, 2024 Supervisor [employer] Relationship Specialty Start Date End Date Kodak Harding MD [address] [place] [address] PCP - [facility] 04/15/22 FOR RECORDS PERTAINING TO PATIENTS WHO ARE OR HAVE BEEN ENROLLED IN A CHEMICAL DEPENDENCY/SUBSTANCEABUSE PROGRAM, SOME INFORMATION MAY BE OMITTED. This clinical summary was aggregated from multiple sources. Caution should be exercised in using it in the provision of clinical care. This summary normalizes information from multiple sources, and as a consequence, information in this document may materially change the coding, format and clinical context of patient data. In addition, data may be omitted in some cases. CLINICAL DECISIONS SHOULD BE BASED ON THE PRIMARY CLINICAL RECORDS. [facility] [employer] [facility] provides no warranty or guarantee of the accuracy or completeness of information in this document.
--- NOTE | 2024-11-28 12:00 | CPS ---
PFT attempt and notes reviewed on PFT [employer] software from 11/09/2024. I attempted testing for Plethysmography, Spirometry and DLCO multiple times and was unable to obtain any acceptable and reproducible values for interpretation.
== END | disposition home or self-care (01) ==
LOC: PSN 09:21
PROVIDERS: Referring Provider Internal Medicine Critical Care Medicine; Visit Provider Internal Medicine Critical Care Medicine
DX: R06.09 Other forms of dyspnea (principal); R93.89 Abnormal findings on diagnostic imaging of other specified body structures

== ENCOUNTER → 2024-11-13 04:00 | Outpatient (REF) | payer MEDICARE, SELFPAY ==
--- OUTSIDE RECORDS SUMMARY | 2024-11-13 04:19 | XMS RPT_ITS | CCD ---
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 Demetrius Terrell MD Attending Provider Braulio CARRANZA, Dr. Rodarte Other Provider Unavailab KODAK Chance Referring Unavailab KODAK Chance Primary Care Unavailab KODAK Chance Referring Unavailab KODAK Chance Primary Care Unavailab Dr. Kodak Chance MD Primary Care Provider Jeyson Myaer MD Referring Provider Jeyson Mayer MD Emergency Provider Jeyson Mayer MD Attending Provider Dr. Kodak Harding MD Referring Provider Dr. Tamir Cardoso DO Attending Provider Demetrius Terrell Attending Unavailable Mehdi, Kodak Primary Care Unavailable Brown, Tamir Referring Unavailable Brown, Tamir Attending Unavailable Mehdi, Kodak Primary Care Unavailable Nice, Donovan Primary Care Unavailable Brown, Tamir Referring Unavailable Brown, Tamir Attending Unavailable Reodicprema, Jeyson Attending Unavailable Mehdi, Kodak Primary Care Unavailable Reodica, Jeyson Referring Unavailable Nice, Donovan Primary Care Unavailable Brown, Tamir Attending Unavailable Brown, Tamir Referring Unavailable Nice, Donovan Primary Care Unavailable Brown, Tamir Attending Unavailable Brown, Tamir Referring Unavailable Mehdi, Kodak Primary Care Unavailable Aster Ramsey Attending Unavailable Benitez, Mio Admitting Unavailable Benitez, Mio Referring Unavailable Benitez, Mio Consulting Unavailable Dulce Maria Traviss F Consulting Unavailable Mehdi, Kodak Primary Care Unavailable Aster Ramsey Attending Unavailable Benitez, Mio Admitting Unavailable Benitez, Mio Referring Unavailable Benitez, Mio Consulting Unavailable MarkelltsDulce Maria robertsons F Consulting Unavailable Ramsey, Achintya Consulting Unavailable Brown, Tamir Attending Unavailable Mehdi, Kodak Primary Care Unavailable Mehdi, Kodak Referring Unavailable Mehdi, Kodak Primary Care Unavailable Benitez, Mio Admitting Unavailable Benitez, Mio Referring Unavailable Benitez, Mio Attending Unavailable Benitez, Mio Consulting Unavailable Dulce Maria Traviss F Attending Unavailable KODAK HARDING Attending Unavailab le MEHDIKODAK Primary Care Unavailab radha COHENONKODAK Attending Unavailab le MEHDIKODAK Primary Care Unavailab le MEHDIKODAK Attending Unavailab le MEHDIKODAK Primary Care Unavailab le KODAK HARDING Attending Unavailab KODAK Chance Primary Care Unavailab Dr. Tamir Saenz DO Referring Provider Dr. Donovan Nice DO Primary Care Provider Allergies Allergy Classification Reported Allergen(s) Allergy Type Date of Onset Reaction(s) Facility (4 sources) Cigarette Smoke; Translations: [CIGARETTE SMOKE] Drug Allergy 09-03-2020 Other: See Comments [facility] Medications Current Medications Medication Drug Class(es) Dates Sig (Normalized) Sig (Original) apixaban 5 mg oral tablet (17 sources) Factor Xa Inhibitor Start: 06-15-2024 End: 10-30-2025 take 1 tablet by mouth twice daily Apixaban (Eliquis) 5 mg Tablet Active 5 mg PO TWICE A DAY 30 0 June 15, 2024 1:00am ascorbic acid 1000 mg oral capsule (2 sources) Vitamin C Start: 11-05-2024 take 1 capsule by mouth once daily Ascorbic Acid (Vitamin C) 1,000 mg capsule Active 1000 mg PO daily November 05, 2024 12:00am furosemide 20 mg oral tablet (19 sources) Loop Diuretic Start: 10-22-2024 take 1 tablet by mouth once daily Furosemide 20 mg Tablet Active 20 mg PO DAILY October 22, 2024 12:00am Start: 06-27-2024 End: 06-27-2024 take 1 tablet [...] mg oral tablet (20 sources) l-Thyroxine Start: take 1 tablet by mouth once daily Levothyroxine (Euthyrox) 125 mcg tablet Active 125 ug PO DAILY October 22, 2024 12:00am Start: 06-12-2024 End: 10-22-2024 take 1 tablet by mouth once daily Levothyroxine 112 mcg tablet Discontinued 112 ug PO DAILY June 12, 2024 1:00am October 22, 2024 5:57pm thyroid Start: 02-23-2021 End: 03-19-2024 take 1 tablet by mouth once daily levothyroxine (SYNTHROID) 125 mcg tablet Take 1 tablet by mouth once daily. 90 tablet 3 03/19/2024 Active Comment on above: Take 1 tablet by [facility] once daily. mecobalamin (2 sources) Start: 11-05-2024 Mecobalamin (Vitamin B12) 2,500 mcg tablet,chewable Active ug PO November 05, 2024 12:00am Multivitamin tablet (2 sources) Start: 11-05-2024 Multivitamin tablet Active 1 {tbl} PO EVERY MORNING November 05, 2024 12:00am gb-oq-KT-vit D-blpnh-uru-coQ10 (DAILY MULTIVITAMIN) 200-100-500 mcg cap (20 sources) Start: 08-30-2019 take 1 capsule by mouth once daily sf-wr-KJ-vit C-dqwvz-rpz-coQ10 (DAILY MULTIVITAMIN) 200-100-500 mcg cap Take 1 capsule by mouth once daily. 08/30/2019 Active Start: 08-30-2019 take [address] [facility] once daily aa-aq-ZB-vit M-jztpr-dav-coQ10 (DAILY MULTIVITAMIN) 200-100-500 mcg cap Take 1 capsule by mouth once daily. 0 08/30/2019 Active Comment on above: Take [address] [facility] once daily. nebivolol 5 mg oral tablet (20 sources) Start: 02-23-2021 End: 06-27-2024 take 1 tablet by mouth once daily Nebivolol (Bystolic) 5 mg tablet Active 5 mg PO DAILY June 12, 2024 1:00am blood pressure Comment on above: Take 1 tablet by [place] once daily. Turmeric extract (2 sources) Start: 11-05-2024 Turmeric 400 mg capsule Active [...] Comment on above: Take 2 tablets by mo [facility] once daily. Completed/Discontinued Medications Medication Drug Class(es) Dates Sig (Normalized) Sig (Original) amoxicillin 875 mg / clavulanate 125 mg oral tablet (3 sources) Penicillin-class Antibacterial Start: 10-22-2024 End: 11-05-2024 take 1 tablet by mouth every twelve hours Amoxicillin-Pot Clavulanate 875-125 mg tablet Discontinued 875 mg PO Q12H 14 7 0 October 22, 2024 12:00am November 05, 2024 11:10am aspirin 325 mg oral tablet (15 sources) Platelet Aggregation Inhibitor, Nonsteroidal Anti-inflammatory Drug [...] once daily. cephalexin 500 mg oral capsule (4 sources) Cephalosporin Antibacterial Start: End: take 1 [...] sources) Long-term current use of anticoagulant; Translations: [assisted (current) use of anticoagulants] 06-27-2024 Episodic Other aftercare (1 source) assisted (current) use of anticoagulants; Translations: [manager terminal (current) use of anticoagulants] Onset: 09-17-2024 Episodic Other and unspecified benign neoplasm (13 sources) Intracranial meningioma; Translations: [Benign neoplasm of cerebral meninges] Onset: 06-15-2024 06-11-2024 Chronic Other and unspecified benign neoplasm (1 source) Benign neoplasm of cerebral meninges; Translations: [Benign neoplasm of cerebral meninges] Onset: 06-18-2024 Chronic Other lower respiratory disease (3 sources) Fibrosis of lung; Translations: [Pulmonary fibrosis, unspecified] 10-22-2024 Chronic Other lower respiratory disease (3 sources) Dyspnea; Translations: [Shortness of breath] 10-22-2024 Episodic Other lower respiratory disease (5 sources) Dyspnea on exertion; Translations: [Other forms of dyspnea] 11-05-2024 Episodic Other lower respiratory disease (2 sources) Other forms of dyspnea; Translations: [Other forms of dyspnea] Onset: 11-05-2024 Episodic Other lower respiratory disease (1 source) Shortness of breath; Translations: [Shortness of breath] Onset: 11-08-2024 Episodic Other screening for suspected conditions (not mental disorders or infectious disease) (6 sources) Abnormal findings on diagnostic imaging of other specified body structures; Translations: [Abnormal chest x-ray] Onset: 11-05-2024 11-05-2024 Chronic Other screening for suspected conditions (not mental disorders or infectious disease) (8 sources) Raised cardiac enzyme or marker; Translations: [Other specified abnormal findings of blood chemistry] Onset: 06-18-2024 06-11-2024 Episodic Residual codes; unclassified (3 sources) Peripheral edema; Translations: [Localized edema] 10-22-2024 Episodic Respiratory failure; insufficiency; arrest (adult) (1 source) Acute respiratory failure; Translations: [Acute respiratory failure with hypoxia] 06-27-2024 Episodic Screening and history of mental health and substance abuse codes (2 sources) Encounter for screening for depression; Translations: [Encounter for screening examination for other mental health and behavioral disorders] Onset: 09-17-2024 Episodic Septicemia (except in labor) (7 sources) Sepsis; Translations: [Sepsis, unspecified organism] Onset: 06-18-2024 06-27-2024 Episodic Skin and subcutaneous tissue infections (3 sources) Cellulitis of right lower limb; Translations: [Cellulitis of right lower limb] 10-22-2024 Episodic Thyroid disorders (20 sources) Acquired hypothyroidism; Translations: [Hypothyroidism, unspecified] Onset: 02-25-2017 Chronic Unclassified (1 source) Unknown / UNK(Unknown) Onset: 03-06-2018 Unclassified (1 source) Other persistent atrial fibrillation; Translations: [Persistent atrial fibrillation (HCC)] Onset: 03-22-2022 Unclassified (1 source) 6 Month Exam Onset: 03-19-2024 Urinary tract infections (8 sources) Acute lower urinary tract infection; Translations: [Urinary tract infection, site not specified] Onset: 06-18-2024 06-27-2024 Episodic Past or Other Problems Problem Classification Problem Date Documented Da te Episodic/Chronic Unclassified (1 source) E03.9 Onset: 03-06-2018 Results Test Name Value Interpretation Reference Range Facility [facility] 11-07-2024 [facility] Telephone (FAMM[facility]) ESTEBAN WOODS ([id number]) 1935 F CHT Date Time Provider Department 11/07/24 KODAK HARDING During your visit today, we recorded the following information about you: Annette Nieves 11/07/2024 2:57 PM Signed Althea from [facility] left message on front loader residential driver voicemail stating patient was admitted to their facility today and was informed by son that Dr. Harding changed recent medications, they would like a order list faxed to [phone] and contact them by phone if any questions at [phone] Kathy Bergeron LPN 11/08/2024 9:02 AM Signed Message left for admissions to phone office in regards to orders and H and P. Kathy Garrett LPN November 08, 2024 9:02 AM Kathy Garrett LPN 11/08/2024 9:50 AM Signed This nurse spoke to nurse at [facility]. Orders verified, Dr. Nice has now taken [...] tablets by mouth daily at bedtime. - qk-ks-HW-vit B-gaswl-yvt-coQ10 (DAILY MULTIVITAMIN) 200-100-500 mcg cap Take 1 capsule by mouth once daily. Problem List As Of Date 11/07/2024 Noted Resolved Atrial fibrillation (HCC) [I48.91] 08/30/2019 Hypertension, essential [I10] 02/25/2017 Hypothyroidism [E03.9] 02/25/2017 Osteoarthritis of knee [M17.9] 09/01/2017 Hyperlipidemia, unspecified [E78.5] 09/26/2023 Intracranial meningioma (HCC) [D32.0] 06/15/2024 Encounter Status:Closed by MATI GARRETT LAUREN on 11/08/24 [facility] Anion gap in Serum or Plasma Ordered By: Tamir Cardoso on 11-05-2024 Anion gap [Moles/Vol] 12 mmol/L 08-23 [facility] BUN/creatinine ratioOrdered By: Tamir Cardoso on 11-05-2024 Urea nitrogen/Creatinine [Mass ratio] 41.1 mg/mg High 01-28 [facility] Basic Metabolic Profile (BMP )on 11-05-2024 BUN/CRE 41.1 RATIO High 01-28 [facility] Comment on above: Performed By: #### L 500.2500, L100.0100 #### [facility] [address] [place], [address] Calcium [Mass/Vol] 10.2 mg/dL Normal 7.6-11.0 [facility] Comment on above: Performed By: #### L 500.2500, L100.0100 #### [facility] [address] [place], [address] Chloride [Moles/Vol] 99 mmol/L Normal 98-108 [facility] Comment on above: Performed By: #### L 500.2500, L100.0100 #### [facility] [address] [place], [address] CO2 [Moles/Vol] 26.3 mmol/L Normal 21.0-32.0 [facility] Comment on above: Performed By: #### L 500.2500, L100.0100 #### [facility] [address] [place], [address] Creatinine [Mass/Vol] 1.14 mg/dL Normal 0.70-1.20 [facility] Comment on above: Performed By: #### L 500.2500, L100.0100 #### [facility] [address] [place], [address] GAP 12 Normal 5-15 [facility] Comment on above: Performed By: #### L 500.2500, L100.0100 #### [facility] [address] [place], [address] GFR/1.73 sq M.predicted among non-blacks MDRD (S/P/Bld) [Vol rate/Area] 46 mL/min/{1.73_m2} Low >60 [facility] Comment on above: Result Comment: mL/m in/1.73m2 CKD-EPI Creatinine Equation (2020) Performed By: #### L 500.2500, L100.0100 #### [facility] [address] [place], [address] Glucose [Mass/Vol] 112 mg/dL High 70-99 [facility] Comment on above: Performed By: #### L 500.2500, L100.0100 #### [facility] [address] [place], [address] Potassium [Moles/Vol] 3.9 mmol/L Normal 3.3-5.1 [facility] Comment on above: Performed By: #### L 500.2500, L100.0100 #### [facility] [address] [place], [address] Sodium [Moles/Vol] 137 mmol/L Normal 133-145 [facility] Comment on above: Performed By: #### L 500.2500, L100.0100 #### [facility] [address] [place], [address] Urea nitrogen [Mass/Vol] 47 mg/dL High 4-19 [facility] Comment on above: Performed By: #### L 500.2500, L100.0100 #### [facility] [address] [place], [address] [facility] 11-05-2024 [facility] Telephone ([facility]) ESTEBAN WOODS ([id number]) 1935 F T Date Time Provider Department 11/05/24 KODAK HARDINGMDAlon During your visit today, we recorded the following information about you: Annette Nieves 11/05/2024 9:53 AM Signed Patient's son Benjamín contacted the office requesting a phone call back regarding update on Erin. Pt can be reached at [phone] Kathy Bergeron LPN 11/06/2024 10:15 AM Signed This nurse spoke to patients son. Son stated that due to lab work, [employer] Dr. Cardoso would like PCP to look [...] this nurse is to send order to [facility]. Additionally, patient does not currently see a Publications Manager. Patient was evaluated and treated for shortness of breath at [facility] on 10-22-2024 Patient was seen in 2008 by Cardiology when diagnosed with A Fib, but did not want to go for the additional testing that they wanted her to receive. Patient does have additional testing scheduled, ordered by [employer]: Pulmonary Function Test November 09, 2024 CT Heart and Lungs November 21, 2024 Echocardiogram November 23, [address] Cardoso [employer] December 05, 2024 Patient is also moving into [facility] with [facility] [phone] tomorrow. Kathy Garrett LPN November 06, 2024 11:15 AM Allergies As of Date: 11/05/2024 Noted Allergy Reaction CIGARETTE SMOKE 09/03/2020 16 - Unknown Date Reviewed: 09/17/2024 Reviewed by: Kathy Garrett LPN - Fully Assessed Reason for Visit: Patient Update [1234] Primary Visit Diagnosis:QUACH (dyspnea on exertion) [R06.09] Order(s):NT PRO BNP [SQNTBNP] Order #: [id number] FUTURE Prescriptions as of 11/06/2024 - ELIQUIS [...] tablets by mouth daily at bedtime. - ox-vo-WR-vit X-vtvey-ram-coQ10 (DAILY MULTIVITAMIN) 200-100-500 mcg cap Take 1 capsule by mouth once daily. Problem List As Of Date 11/05/2024 Noted Resolved Atrial fibrillation (HCC) [I48.91] 08/30/2019 Hypertension, essential [I10] 02/25/2017 Hypothyroidism [E03.9] 02/25/2017 Osteoarthritis of knee [M17.9] 09/01/2017 Hyperlipidemia, unspecified [E78.5] 09/26/2023 Intracranial meningioma (HCC) [D32.0] 06/15/2024 Encounter Status:Closed by KODAK HARDING on 11/06/[address] [facility] Carbon dioxide, total [Moles /volume] in Central venous bloodOrdered By: Tamir Cardoso on 11-05-2024 CO2 [Moles/Vol] 26.3 mmol/L 21.0-32.0 [facility] Chloride assayOrdered By: Walton on 11-05-2024 Chloride [Moles/Vol] 99 mmol/L 98-108 [facility] Glomerular filtration rate ( GFR) estimation/1.73 sq m using serum, plasma, or whole bOrdered By: Tamir Cardoso on 11-05-2024 GFR/1.73 sq M.predicted among non-blacks MDRD (S/P/Bld) [Vol rate/Area] 46 mL/min/{1.73_m2} Low >60 [facility] Comment on above: mL/min/1.73m2 CKD-EP I Creatinine Equation (2020) Natriuretic peptide.B prohor vidhya N-Terminal [Mass/volume] in Serum or PlasmaOrdered By: Tamir Cardoso on 11-05-2024 Natriuretic peptide.B prohormone N-Terminal [Mass/Vol] 4437 pg/mL High <1800 [facility] Comment on above: Heart Failure Unlike ly: < 300 pg/mLHeart Failure Likely< 50 Years: > 450 pg/mL50-75 Years: > 900 pg/mL>75 Years: > 1800 pg/mL Potassium measurement (mass/ volume)Ordered By: Tamir Cardoso on 11-05-2024 Potassium (Unsp spec) [Mass/Vol] 3.9 mmol/L 3.3-5.1 [facility] Pro- Brain NATRIURETIC PEPTI Faiza 11-05-2024 Natriuretic peptide B (Bld) [Mass/Vol] 4437 pg/mL High <=1800 [facility] Comment on above: Result Comment: Hear t Failure Unlikely: < 300 pg/mL Heart Failure Likely < 50 Years: > 450 pg/mL 50-75 Years: > 900 pg/mL >75 Years: > 1800 pg/mL Performed By: #### L 500.2500, L100.0100 #### [facility] [address] [place], [address] Pulmonary Visit Reporton Pulmonary Visit Report [facility] [place] [address] [place] [address] OFFICE VISIT Date of Service: 11/05/24 MR#: [id number] Acct: [id number] Name: ESTEBAN WOODS Rep #: [id number] : 1935 Provider: Dr. Tamir Cardoso DO Age/Sex: 89/F [place] [facility] Status: Signed Assessment and Plan Assessment and [...] She has never been evaluated by a user interface artist. She has never been diagnosed with any [...] room air Intake Visit Reasons: Hospital FU Statistics Teacher Required: No Accompanied by: Son Allergies No Known Allergies A (more content not included)... Normal [facility] Serum creatinine measurement (mass/volume)Ordered By: Tamir Cardoso on 11-05-2024 Creatinine [Mass/Vol] 1.14 mg/dL 0.70-1.20 [facility] Serum glucose measurement (m ass/volume)Ordered By: Tamir Cardoso on 11-05-2024 Glucose [Mass/Vol] 112 mg/dL High 70-99 [facility] Serum or plasma calcium sarbjit urement (mass/volume)Ordered By: Tamir Cardoso on 11-05-2024 Calcium [Mass/Vol] 10.2 mg/dL 7.6-11.0 [facility] Serum or plasma urea nitroge n measurement (mass/volume)Ordered By: Tamir Cardoso on 11-05-2024 Urea nitrogen [Mass/Vol] 47 mg/dL High 4-19 [facility] Sodium levelOrdered By: Liana Cardoso on 11-05-2024 Sodium [Moles/Vol] 137 mmol/L 133-145 [facility] 12 Lead EKGon 10-22-2024 12 Lead EKG [facility] [address] [place] [address] 12 Lead EKG 10/22/24 1639 MR#: [id number] Acct: [id number] Name: ESTEBAN WOODS Rep #: [id number] : 1935 89 From: Benjamín Hendrix MD [...] undetermined Abnormal ECG Confirmed by Benjamín Hendrix ([id number]), assistant merchandiser ANSON COHEN ([id number]) on 10/24/2024 11:19:43 AM Referred By: Jeyson Mayer Confirmed By: Benjamín Hendrix 10/24/24 1119 Date Benjamín Hendrix MD CC: Dr. Jeyson Mayer MD; Dr. Kodak Harding MD Signed Normal [facility] Absolute lymphocyte countOrd ered By: Jeyson Mayer on 10-22-2024 Lymphocytes Auto (Unsp spec) [#/Vol] 1.77 10*3/uL 0.83-4.51 [facility] Absolute neutrophil countOrd ered By: Jeyson Mayer on 10-22-2024 Neutrophils (Bld) [#/Vol] 7.3 10*3/uL 2.0-7.7 [facility] Anion gap in Serum or Plasma Ordered By: Jeyson Mayer on 10-22-2024 Anion gap [Moles/Vol] 13 mmol/L 5-15 [facility] Automated lymphocyte count a s percentage of total leukocytesOrdered By: Jeyson Mayer on 10-22-2024 Lymphocytes/100 WBC Auto (Unsp spec) 17.8 % Low 19-41 [facility] BUN/creatinine ratioOrdered By: Jeyson Mayer on 10-22-2024 Urea nitrogen/Creatinine [Mass ratio] 35.3 mg/mg High 10-20 [facility] Basophil percentageOrdered B y: Jeyson Mayer on 10-22-2024 Basophils/100 WBC (Bld) 0.5 % 0-1 [facility] Bilirubin Test strip Ql (U)O rdered By: Jeyson Mayer on 10-22-2024 Bilirubin Ql (U) Negative Negative [facility] Bilirubin, totalOrdered By: Jeyson Mayer on 10-22-2024 Bilirubin [Mass/Vol] 1.29 mg/dL 0.00-1.30 [facility] CBC W/Diff, Automatedon 10-09 Absolute Lymph 1.77 X10 3/uL Normal 0.83-4.51 [facility] Comment on above: Performed By: #### L 500.2500, L100.0100 #### [facility] [address] [facility] [place], [place], [address] Absolute Neut 7.3 X10 3/uL Normal 2.0-7.7 [facility] Comment on above: Performed By: #### L 500.2500, L100.0100 #### [facility] [address] [place], [address] Basophils/100 WBC (Bld) 0.5 % Normal 0-1 [facility] Comment on above: Performed By: #### L 500.2500, L100.0100 #### [facility] [address] [place], [address] Eosinophils/100 WBC (Bld) 0.8 % Normal 0-5 [facility] Comment on above: Performed By: #### L 500.2500, L100.0100 #### [facility] [address] [place], [address] Erythrocyte distribution width (RBC) [Ratio] 14.2 % Normal 11.6-14.6 [facility] Comment on above: Performed By: #### L 500.2500, L100.0100 #### [facility] [address] [place], [address] Hematocrit (Bld) [Volume fraction] 42.9 % Normal 37-47 [facility] Comment on above: Performed By: #### L 500.2500, L100.0100 #### [facility] [address] [place], [address] Hemoglobin (Bld) [Mass/Vol] 13.9 g/dL Normal 12.0-15.0 [facility] Comment on above: Performed By: #### L 500.2500, L100.0100 #### [facility] [address] [place], [address] IG% 0.600 Normal 0.0-0.9 [facility] Comment on above: Result Comment: IG% - Immature Granulocytes (promyelocytes, myelocytes and metamyelocytes) > 1% indicates that a LEFT SHIFT is Present. Performed By: #### L 500.2500, L100.0100 #### [facility] [address] [place], [address] Lymphocytes/100 WBC (Bld) 17.8 % Low 19-41 [facility] Comment on above: Performed By: #### L 500.2500, L100.0100 #### [facility] [address] [place], [address] MCH (RBC) [Entitic mass] 33.1 pg High 27.0-32.0 [facility] Comment on above: Performed By: #### L 500.2500, L100.0100 #### [facility] [address] [place], [address] MCHC (RBC) [Mass/Vol] 32.4 g/dL Normal 32-36 [facility] Comment on above: Performed By: #### L 500.2500, L100.0100 #### [facility] [address] [place], [address] MCV (RBC) [Entitic vol] 102.1 fL High 81-99 [facility] Comment on above: Performed By: #### L 500.2500, L100.0100 #### [facility] [address] [place], [address] Monocytes/100 WBC (Bld) 7.1 % Normal 0-10 [facility] Comment on above: Performed By: #### L 500.2500, L100.0100 #### [facility] [address] [place], [address] Neutrophils/100 WBC (Bld) 73.2 % High 47-70 [facility] Comment on above: Performed By: #### L 500.2500, L100.0100 #### [facility] [address] [place], [address] Nucleated RBC (Bld) [#/Vol] 0 10*3/uL Normal 0-5 [facility] Comment on above: Performed By: #### L 500.2500, L100.0100 #### [facility] [address] [place], [address] Platelet mean volume (Bld) [Entitic vol] 8.8 fL Normal 6.2-12.0 [facility] Comment on above: Performed By: #### L 500.2500, L100.0100 #### [facility] [address] [place], [address] Platelets (Bld) [#/Vol] 234 10*3/uL Normal 150-450 [facility] Comment on above: Performed By: #### L 500.2500, L100.0100 #### [facility] [address] [place], [address] RBC (Bld) [#/Vol] 4.20 10*6/uL Normal 4.2-5.[address] [facility] Comment on above: Performed By: #### L 500.2500, L100.0100 #### [facility] [address] [place], [address] RDW SD 53.2 fl High 35.1-43.9 [facility] Comment on above: Performed By: #### L 500.2500, L100.0100 #### [facility] [address] [place], [address] WBC (Bld) [#/Vol] 9.9 10*3/uL Normal 4.4-11.0 [facility] Comment on above: Performed By: #### L 500.2500, L100.0100 #### [facility] [address] [place], [address] Carbon dioxide, total [Moles /volume] in Central venous bloodOrdered By: Jeyson Mayer on 10-22-2024 CO2 [Moles/Vol] 25.8 mmol/L 21.0-32.0 [facility] Chest PA and Lateralon 10-22 Chest PA and Lateral [facility] Imaging Services [address] [place] [address] Chest PA and Lateral MR#: [id number] Acct: [id number] Name: ESTEBAN WOODS Rep #: [id number] : 1935 F 89 From: Johnny Espinoza MD PCP: Dr. Kodak Harding MD Status: REG ER Study: Chest PA and Lateral Date of Exam: 10/22/24 Exam# [id number] Ordering Dr: Jeyson Mayer MD PROCEDURE: CHEST [...] to exclude. No pleural effusions. Reading Location: [facility] CC: Dr. Jeyson Mayer MD; Dr. Kodak Harding MD Desktop Support Specialist: Signed Normal [facility] Chloride assayOrdered By: Carlos Mayer on 10-22-2024 Chloride [Moles/Vol] 98 mmol/L 98-108 [facility] Comprehensive Metabolic Prof ilon 10-22-2024 Albumin [Mass/Vol] 3.8 g/dL Normal 3.4-4.8 [facility] Comment on above: Performed By: #### L 500.2500, L100.0100 #### [facility] [address] [place], [address] Albumin/Globulin [Mass ratio] 0.9 {ratio} Normal 0.9-2.4 [facility] Comment on above: Performed By: #### L 500.2500, L100.0100 #### [facility] [address] [place], [address] ALK PHOS 84 U/L Normal 35-104 [facility] Comment on above: Performed By: #### L 500.2500, L100.0100 #### [facility] [address] [place], [address] ALT [Catalytic activity/Vol] 28 U/L Normal <=34 [facility] Comment on above: Performed By: #### L 500.2500, L100.0100 #### [facility] [address] [place], [address] AST [Catalytic activity/Vol] 27 U/L Normal <=31 [facility] Comment on above: Performed By: #### L 500.2500, L100.0100 #### [facility] [address] [place], [address] Bilirubin [Mass/Vol] 1.29 mg/dL Normal 0.00-1.30 [facility] Comment on above: Performed By: #### L 500.2500, L100.0100 #### [facility] [address] [place], [address] BUN/CRE 35.3 RATIO High 10-20 [facility] Comment on above: Performed By: #### L 500.2500, L100.0100 #### [facility] [address] [place], [address] Calcium [Mass/Vol] 10.4 mg/dL Normal 7.6-11.0 [facility] Comment on above: Performed By: #### L 500.2500, L100.0100 #### [facility] [address] [place], [address] Chloride [Moles/Vol] 98 mmol/L Normal 98-108 [facility] Comment on above: Performed By: #### L 500.2500, L100.0100 #### [facility] [address] [place], [address] CO2 [Moles/Vol] 25.8 mmol/L Normal 21.0-32.0 [facility] Comment on above: Performed By: #### L 500.2500, L100.0100 #### [facility] [address] [place], [address] Creatinine [Mass/Vol] 1.18 mg/dL Normal 0.70-1.20 [facility] Comment on above: Performed By: #### L 500.2500, L100.0100 #### [facility] [address] [place], [address] GAP 13 Normal 5-15 [facility] Comment on above: Performed By: #### L 500.2500, L100.0100 #### [facility] [address] [place], [address] GFR/1.73 sq M.predicted among non-blacks MDRD (S/P/Bld) [Vol rate/Area] 44 mL/min/{1.73_m2} Low >60 [facility] Comment on above: Result Comment: mL/m in/1.73m2 CKD-EPI Creatinine Equation (2020) Performed By: #### L 500.2500, L100.0100 #### [facility] [address] [place], [address] Globulin (S) [Mass/Vol] 4.0 g/dL Normal 2.2-4.2 [facility] Comment on above: Performed By: #### L 500.2500, L100.0100 #### [facility] [address] [place], [address] Glucose [Mass/Vol] 84 mg/dL Normal 70-99 [facility] Comment on above: Performed By: #### L 500.2500, L100.0100 #### [facility] [address] [place], [address] Potassium [Moles/Vol] 3.6 mmol/L Normal 3.3-5.1 [facility] Comment on above: Performed By: #### L 500.2500, L100.0100 #### [facility] [address] [place], [address] Sodium [Moles/Vol] 137 mmol/L Normal 133-145 [facility] Comment on above: Performed By: #### L 500.2500, L100.0100 #### [facility] [address] [place], [address] T PROT 7.7 g/dL Normal 5.9-8.4 [facility] Comment on above: Performed By: #### L 500.2500, L100.0100 #### [facility] [address] [place], [address] Urea nitrogen [Mass/Vol] 42 mg/dL High 4-19 [facility] Comment on above: Performed By: #### L 500.2500, L100.0100 #### [facility] [address] [place], [address] Emergency Department Summary on 10-22-2024 Emergency Department Summary [facility] Medical Records Department [address] [place] [address] Emergency Department Summary 10/22/24 MR#: [id number] Acct: [id number] Name: ESTEBAN WOODS Rep #: [id number] : 1935 89 From: Jeyson Mayer MD [...] short of breath with dyspnea on exertion. [facility] Medical History Hypertension Home Medications ???Medication [...] shows BU (more content not included)... Normal [facility] Eosinophil percentageOrdered By: Jeyson Mayer on 10-22-2024 Eosinophils/100 WBC (Bld) 0.8 % 0-5 [facility] Erythrocyte distribution wid th ratioOrdered By: Jeyson Mayer on 10-22-2024 Erythrocyte distribution width (RBC) [Ratio] 14.2 % 11.6-14.6 [facility] Erythrocyte distribution wid th standard deviationOrdered By: Jeyson Mayer on 10-22-2024 Erythrocyte distribution width (RBC) [Ratio] 53.2 fl High 35.1-43.9 [facility] Glomerular filtration rate ( GFR) estimation/1.73 sq m using serum, plasma, or whole bOrdered By: Jeyson Mayer on 10-22-2024 GFR/1.73 sq M.predicted among non-blacks MDRD (S/P/Bld) [Vol rate/Area] 44 mL/min/{1.73_m2} Low >60 [facility] Comment on above: mL/min/1.73m2 CKD-EP I Creatinine Equation (2020) Hematocrit Auto (Bld) [Volum e fraction]Ordered By: Jeyson Mayer on 10-22-2024 Hematocrit (Bld) [Volume fraction] 42.9 % 37-47 [facility] Hemoglobin measurementOrdere d By: Jeyson Mayer on 10-22-2024 Hemoglobin (Bld) [Mass/Vol] 13.9 g/dL 12.0-15.0 [facility] Immature granulocytes/100 WB C Auto (Bld)Ordered By: Jeyson Mayer on 10-22-2024 Immature granulocytes/100 WBC (Bld) 0.600 % 0.0-0.9 [facility] Comment on above: IG% - Immature Granu locytes (promyelocytes, myelocytes and metamyelocytes) > 1% indicates that a LEFT SHIFT is Present. Ketones Test strip Ql (U)Ord ered By: Jeyson Mayer on 10-22-2024 Ketones Ql (U) Negative Negative [facility] L503.7505on 10-22-2024 Natriuretic peptide B (Bld) [Mass/Vol] 3953 pg/mL High <=1800 [facility] Comment on above: Result Comment: Hear t Failure Unlikely: < 300 pg/mL Heart Failure Likely < 50 Years: > 450 pg/mL 50-75 Years: > 900 pg/mL >75 Years: > 1800 pg/mL Performed By: #### L 500.2500, L100.0100 #### [facility] [place], [address] Laboratory - Chemistry and C hemistry - challengeOrdered By: Jeyson Mayer on 10-22-2024 AST [Catalytic activity/Vol] 27 U/L <32 [facility] MCV (mean corpuscular volume ) determinationOrdered By: Jeyson Mayer on 10-22-2024 MCV (RBC) [Entitic vol] 102.1 fL High 81-99 [facility] Mean corpuscular hemoglobin (MCH) determinationOrdered By: Jeyson Mayer on 10-22-2024 MCH (RBC) [Entitic mass] 33.1 pg High 27.0-32.0 [facility] Mean corpuscular hemoglobin concentration (MCHC) determinationOrdered By: Jeyson Mayer on 10-22-2024 MCHC (RBC) [Mass/Vol] 32.4 g/dL 32-36 [facility] Mean platelet volume determi nationOrdered By: Jeyson Mayer on 10-22-2024 Platelet mean volume (Bld) [Entitic vol] 8.8 fL 6.2-12.0 [facility] Microscopic analysis of urin e for red blood cells (RBC)Ordered By: Jeyson Mayer on 10-22-2024 Microscopic analysis of urine for red blood cells (RBC) 0-5 SEEN /hpf 0-5 [facility] Monocyte percentageOrdered B y: Jeyson Mayer on 10-22-2024 Monocytes/100 WBC (Bld) 7.1 % 0-10 [facility] Mucus LM Ql (Urine sed)Order ed By: Jeyson Mayer on 10-22-2024 Mucus Ql (Urine sed) 0 SEEN /hpf [facility] Natriuretic peptide.B prohor vidhya N-Terminal [Mass/volume] in Serum or PlasmaOrdered By: Jeyson Mayer on 10-22-2024 Natriuretic peptide.B prohormone N-Terminal [Mass/Vol] 3953 pg/mL High <1800 [facility] Comment on above: Heart Failure Unlike ly: < 300 pg/mLHeart Failure Likely< 50 Years: > 450 pg/mL50-75 Years: > 900 pg/mL>75 Years: > 1800 pg/mL Neutrophil percentageOrdered By: Jeyson Mayer on 10-22-2024 Neutrophils/100 WBC (Bld) 73.2 % High 47-70 [facility] Nitrite Test strip Ql (U)Ord ered By: Jeyson Mayer on 10-22-2024 Nitrite Ql (U) Negative Negative [facility] Nucleated red blood cell per centageOrdered By: Jeyson Mayer on 10-22-2024 Nucleated RBC/100 WBC (Bld) [Ratio] 0 % 0-5 [facility] Platelet countOrdered By: Carlos Mayer on 10-22-2024 Platelets (Bld) [#/Vol] 234 10*3/uL 150-450 [facility] Potassium measurement (mass/ volume)Ordered By: Jeyson Mayer on 10-22-2024 Potassium (Unsp spec) [Mass/Vol] 3.6 mmol/L 3.3-5.1 [facility] Protein Test strip Ql (U)Ord ered By: Jeyson Mayer on 10-22-2024 Protein Ql (U) 30 mg/dl High Negative [facility] RBC Auto (Bld) [#/Vol]Ordere d By: Jeyson Mayer on 10-22-2024 RBC (Bld) [#/Vol] 4.20 10*6/uL 4.2-5.[address] [facility] Serum creatinine measurement (mass/volume)Ordered By: Jeyson Mayer on 10-22-2024 Creatinine [Mass/Vol] 1.18 mg/dL 0.70-1.20 [facility] Serum globulin measurementOr dered By: Jeyson Mayer on 10-22-2024 Globulin (S) [Mass/Vol] 4.0 g/dL 2.2-4.2 [facility] Serum glucose measurement (m ass/volume)Ordered By: Jeyson Mayer on 10-22-2024 Glucose [Mass/Vol] 84 mg/dL 70-99 [facility] Serum or plasma alanine ball otransferase (ALT) measurementOrdered By: Jeyson Mayer on 10-22-2024 ALT [Catalytic activity/Vol] 28 U/L <35 [facility] Serum or plasma albumin sarbjit urement (mass/volume)Ordered By: Jeyson Mayer on 10-22-2024 Albumin [Mass/Vol] 3.8 g/dL 3.4-4.8 [facility] Serum or plasma albumin/glob ulin mass ratioOrdered By: Jeyson Mayer on 10-22-2024 Albumin/Globulin [Mass ratio] 0.9 {ratio} 0.9-2.4 [facility] Serum or plasma alkaline mauri sphatase measurementOrdered By: Jeyson Mayer on 10-22-2024 ALP [Catalytic activity/Vol] 84 U/L 35-104 [facility] Serum or plasma calcium sarbjit urement (mass/volume)Ordered By: Jeyson Mayer on 10-22-2024 Calcium [Mass/Vol] 10.4 mg/dL 7.6-11.0 [facility] Serum or plasma urea nitroge n measurement (mass/volume)Ordered By: Jeyson Mayer on 10-22-2024 Urea nitrogen [Mass/Vol] 42 mg/dL High 4-19 [facility] Sodium levelOrdered By: Jeyson Mayer on 10-22-2024 Sodium [Moles/Vol] 137 mmol/L 133-145 [facility] Squamous epithelial cells de tection in urine sediment by light microscopyOrdered By: Jeyson Mayer on 10-22-2024 Epithelial cells.squamous LM Ql (Urine sed) 0-5 SEEN /hpf 5-10 [facility] Total proteinOrdered By: Nya Mayer on 10-22-2024 Protein [Mass/Vol] 7.7 g/dL 5.9-8.4 [facility] Urinalysis, Completeon 10-22 BACTERIA 2+ /hpf Normal None Seen [facility] Comment on above: Order Comment: CLEAN CATCH Performed By: #### L 500.2500, L100.0100 #### [facility] [address] [place], [place], [address] EPI,SQUAMOUS 0-5 SEEN Normal 5-10 [facility] Comment on above: Order Comment: CLEAN CATCH Performed By: #### L 500.2500, L100.0100 #### [facility] [address] [place], [address] RBC 0-5 SEEN Normal 0-5 [facility] Comment on above: Order Comment: CLEAN CATCH Performed By: #### L 500.2500, L100.0100 #### [facility] [address] [place], [address] WBC 0-5 SEEN Normal 0-5 [facility] Comment on above: Order Comment: CLEAN CATCH Performed By: #### L 500.2500, L100.0100 #### [facility] [address] [place], [address] Mucus Ql (Urine sed) 0 SEEN Normal [facility] Comment on above: Order Comment: CLEAN CATCH Performed By: #### L 500.2500, L100.0100 #### [facility] [address] [place], [address] Urine clarityOrdered By: Nya Mayer on 10-22-2024 Clarity (U) Sl. Cloudy Clear [facility] Urine color determinationOrd ered By: Jeyson Mayer on 10-22-2024 Color (U) Yellow Yellow [facility] Urine glucose detectionOrder ed By: Jeyson aMyer on 10-22-2024 Glucose Ql (U) Normal mg/dl Normal [facility] Urine leukocyte esterase det ection by dipstickOrdered By: Jeyson Mayer on 10-22-2024 Leukocyte esterase Test strip Ql (U) 25 /ul High Negative [facility] Urine pHOrdered By: Jeyson barrios on 10-22-2024 pH (U) 6.0 [pH] 5.0 - 8.0 [facility] Urine sediment bacteria coun t by microscopy (number/high power field)Ordered By: Jeyson Mayer on 10-22-2024 Bacteria LM.HPF (Urine sed) [#/Area] 2 /[HPF] None Seen [facility] Urine specific gravity measu rementOrdered By: Jeyson Mayer on 10-22-2024 Specific gravity (U) [Rel density] 1.010 1.002-1.030 [facility] Urine urobilinogen measureme ntOrdered By: Jeyson Mayer on 10-22-2024 Urobilinogen Ql (U) 1 mg/dl High Normal [facility] White blood cell (WBC) count Ordered By: Jeyson Mayer on 10-22-2024 WBC (Bld) [#/Vol] 9.9 10*3/uL 4.4-11.0 [facility] White blood cell countOrdere d By: Jeyson Mayer on 10-22-2024 White blood cell count 0-5 SEEN /hpf 0-5 [facility] CBC W Auto Differential pane l (Bld)on 10-01-2024 Basophils (Bld) [#/Vol] 0.05 10*3/uL Normal <0.[address] [facility] Comment on above: Order Comment: Speci men Type: BLOOD SPECIMEN Ordering Facility: [facility] Address: [address] [place] [address] Performed By: #### 5 7021-8 #### [facility] CLIA [id number] [address] [place] [address] [place] Basophils/100 WBC (Bld) 0.5 % Normal [facility] Comment on above: Order Comment: Speci men Type: BLOOD SPECIMEN Ordering Facility: [facility] Address: [address] [place] [address] Performed By: #### 5 7021-8 #### [facility] CLIA [id number] [address] [place] [address] [place] Differential cell count method Nom (Bld) Auto Normal [facility] Comment on above: Order Comment: Speci men Type: BLOOD SPECIMEN Ordering Facility: [facility] Address: [address] [place] [address] Performed By: #### 5 7021-8 #### [facility] CLIA [id number] [address] [place] [address] [place] Eosinophils (Bld) [#/Vol] 0.09 10*3/uL Normal <0.[address] [facility] Comment on above: Order Comment: Speci men Type: BLOOD SPECIMEN Ordering Facility: [facility] Address: [address] [place] [address] Performed By: #### 5 7021-8 #### [facility] CLIA [id number] [address] [place] [address] [place] Eosinophils/100 WBC (Bld) 0.9 % Normal [facility] Comment on above: Order Comment: Speci men Type: BLOOD SPECIMEN Ordering Facility: [facility] Address: [address] [place] [address] Performed By: #### 5 7021-8 #### [facility] CLIA [id number] [address] [place] [address] [place] Erythrocyte distribution width (RBC) [Ratio] 14.4 % Normal 11.5-15.[address] [facility] Comment on above: Order Comment: Speci men Type: BLOOD SPECIMEN Ordering Facility: [facility] Address: [address] [place] [address] Performed By: #### 5 7021-8 #### [facility] CLIA [id number] [address] [place] [address] [place] Hematocrit (Bld) [Volume fraction] 38.1 % Normal 36.0-46.[address] [facility] Comment on above: Order Comment: Speci men Type: BLOOD SPECIMEN Ordering Facility: [facility] Address: [address] [place] [address] Performed By: #### 5 7021-8 #### [facility] CLIA [id number] [address] [place] [address] [place] Hemoglobin (Bld) [Mass/Vol] 12.7 g/dL Normal 11.5-15.[address] [facility] Comment on above: Order Comment: Speci men Type: BLOOD SPECIMEN Ordering Facility: [facility] Address: [address] [place] [address] Performed By: #### 5 7021-8 #### [facility] CLIA [id number] [address] [place] [address] [place] Immature granulocytes (Bld) [#/Vol] 0.07 10*3/uL Normal <0.[address] [facility] Comment on above: Order Comment: Speci men Type: BLOOD SPECIMEN Ordering Facility: [facility] Address: [address] [place] [address] Performed By: #### 5 7021-8 #### [facility] CLIA [id number] [address] [place] [address] [place] Immature granulocytes/100 WBC (Bld) 0.7 % Normal [facility] Comment on above: Order Comment: Speci men Type: BLOOD SPECIMEN Ordering Facility: [facility] Address: [address] [place] [address] Performed By: #### 5 7021-8 #### [id number] [address] [place] [address] [place] Lymphocytes (Bld) [#/Vol] 1.43 10*3/uL Normal 1.00-4.[address] [facility] Comment on above: Order Comment: Speci men Type: BLOOD SPECIMEN Ordering Facility: [facility] Address: [address] [place] [address] Performed By: #### 5 7021-8 #### [facility] [id number] [address] [place] [address] [place] Lymphocytes/100 WBC (Bld) 14.7 % Normal [facility] Comment on above: Order Comment: Speci men Type: BLOOD SPECIMEN Ordering Facility: [facility] Address: [address] [place] [address] Performed By: #### 5 7021-8 #### [id number] [address] [place] [address] [place] MCH (RBC) [Entitic mass] 33.1 pg Normal 26.0-34.[address] [facility] Comment on above: Order Comment: Speci men Type: BLOOD SPECIMEN Ordering Facility: [facility] Address: [address] [place] [address] Performed By: #### 5 7021-8 #### [facility] CLIA [id number] [address] [place] [address] [place] MCHC (RBC) [Mass/Vol] 33.3 g/dL Normal 30.5-36.0 [facility] Comment on above: Order Comment: Speci men Type: BLOOD SPECIMEN Ordering Facility: [facility] Address: [address] [place] [address] Performed By: #### 5 7021-8 #### [facility] CLIA [id number] [address] [place] [address] [place] MCV (RBC) [Entitic vol] 99.2 fL Normal 80.0-100.0 [facility] Comment on above: Order Comment: Speci men Type: BLOOD SPECIMEN Ordering Facility: [facility] Address: [address] [place] [address] Performed By: #### 5 7021-8 #### [facility] CLIA [id number] [address] [place] [address] [place] Monocytes (Bld) [#/Vol] 0.71 10*3/uL Normal <0.[address] [facility] Comment on above: Order Comment: Speci men Type: BLOOD SPECIMEN Ordering Facility: [facility] Address: [address] [place] [address] Performed By: #### 5 7021-8 #### [facility] CLIA [id number] [address] [place] [address] [place] Monocytes/100 WBC (Bld) 7.3 % Normal [facility] Comment on above: Order Comment: Speci men Type: BLOOD SPECIMEN Ordering Facility: [facility] Address: [address] [place] [address] Performed By: #### 5 7021-8 #### [facility] CLIA [id number] [address] [place] [address] [place] Neutrophils (Bld) [#/Vol] 7.41 10*3/uL Normal 1.45-7.[address] [facility] Comment on above: Order Comment: Speci men Type: BLOOD SPECIMEN Ordering Facility: [facility] Address: [address] [place] [address] Performed By: #### 5 7021-8 #### [facility] CLIA [id number] [address] [place] [address] [place] Neutrophils/100 WBC (Bld) 75.9 % Normal [facility] Comment on above: Order Comment: Speci men Type: BLOOD SPECIMEN Ordering Facility: [facility] Address: [address] [place] [address] Performed By: #### 5 7021-8 #### [id number] [address] [place] [address] [place] Nucleated RBC (Bld) [#/Vol] 10*3/uL Normal <0.[address] [facility] Comment on above: Order Comment: Speci men Type: BLOOD SPECIMEN Ordering Facility: [facility] Address: [address] [place] [address] Performed By: #### 5 7021-8 #### [facility] [id number] [address] [place] [address] [place] Nucleated RBC/100 WBC (Bld) [Ratio] 0.0 /100 WBC Normal [facility] Comment on above: Order Comment: Speci men Type: BLOOD SPECIMEN Ordering Facility: [facility] Address: [address] [place] [address] Performed By: #### 5 7021-8 #### [facility] [id number] [address] [place] [address] [place] Platelet mean volume (Bld) [Entitic vol] 8.5 fL Low 9.0-12.[address] [facility] Comment on above: Order Comment: Speci men Type: BLOOD SPECIMEN Ordering Facility: [facility] Address: [address] [place] [address], [place] [address] Performed By: #### 5 7021-8 #### [facility] CLIA [id number] [address] [place] [address] [place] Platelets (Bld) [#/Vol] 215 10*3/uL Normal 150-[address] [facility] Comment on above: Order Comment: Speci men Type: BLOOD SPECIMEN Ordering Facility: [facility] Address: [address] [place], [place] [address] Performed By: #### 5 7021-8 #### [facility] CLIA [id number] [address] [place] [address] [place] DEEP RBC (Bld) [#/Vol] 3.84 10*6/uL Low 3.90-5.20 [facility] Comment on above: Order Comment: Speci men Type: BLOOD SPECIMEN Ordering Facility: [facility] Address: [address] [place] [address] Performed By: #### 5 7021-8 #### [facility] CLIA [id number] [address] [place] [address] [place] WBC (Bld) [#/Vol] 9.76 10*3/uL Normal 3.70-11.00 [facility] Comment on above: Order Comment: Speci men Type: BLOOD SPECIMEN Ordering Facility: [facility] Address: [address] [place], [place] [id number] Performed By: #### 5 7021-8 #### [facility] CLIA [id number] [address] [place] [address] [place] Comprehensive metabolic 2000 panelon 10-01-2024 Albumin [Mass/Vol] 3.5 g/dL Low 3.9-4.9 [facility] Comment on above: Order Comment: Speci men Type: BLOOD SPECIMEN Ordering Facility: [facility] Address: [address] [place] [address] Performed By: #### 2 4323-8 #### [facility] CLIA [id number] [address] [place] [address] [place] ALP [Catalytic activity/Vol] 75 U/L Normal 34-[address] [facility] Comment on above: Order Comment: Speci men Type: BLOOD SPECIMEN Ordering Facility: [facility] Address: [address] [place] [address] Performed By: #### 2 4323-8 #### [facility] [id number] [address] [place] [address] [place] ALT [Catalytic activity/Vol] 27 U/L Normal 7-[address] [facility] Comment on above: Order Comment: Speci men Type: BLOOD SPECIMEN Ordering Facility: [facility] Address: [address] [place] [address] Performed By: #### 2 4323-8 #### [facility] CLIA [id number] [address] [place] [address] [place] Anion gap [Moles/Vol] 13 mmol/L Normal 8-15 [facility] Comment on above: Order Comment: Speci men Type: BLOOD SPECIMEN Ordering Facility: [facility] Address: [address] [place] [address] Performed By: #### 2 4323-8 #### [facility] CLIA [id number] [address] [place] [address] [place] AST [Catalytic activity/Vol] Normal [facility] Comment on above: Order Comment: Speci men Type: BLOOD SPECIMEN Ordering Facility: [facility] Address: [address] [place] [address] Result Comment: Unab le to assay. Specimen significantly hemolyzed. Performed By: #### 2 4323-8 #### [facility] CLIA [id number] [address] [place] [address] [place] Bilirubin [Mass/Vol] 1.5 mg/dL High 0.2-1.3 [facility] Comment on above: Order Comment: Speci men Type: BLOOD SPECIMEN Ordering Facility: [facility] Address: [address] [place] [address] Performed By: #### 2 4323-8 #### [facility] CLIA [id number] [address] [place] [address] [place] Calcium [Mass/Vol] 10.2 mg/dL Normal 8.5-10.2 [facility] Comment on above: Order Comment: Speci men Type: BLOOD SPECIMEN Ordering Facility: [facility] Address: [address] [place] [address] Performed By: #### 2 4323-8 #### [facility] CLIA [id number] [address] [place] [address] [place] Chloride [Moles/Vol] 98 mmol/L Normal 98-107 [facility] Comment on above: Order Comment: Speci men Type: BLOOD SPECIMEN Ordering Facility: [facility] Address: [address] [place] [address] Performed By: #### 2 4323-8 #### [facility] CLIA [id number] [address] [place] [address] [place] CO2 [Moles/Vol] 21 mmol/L Low 22-[address] [facility] Comment on above: Order Comment: Speci men Type: BLOOD SPECIMEN Ordering Facility: [facility] Address: [address] [place] [address] Performed By: #### 2 4323-8 #### [facility] CLIA [id number] [address] [place] [address] [place] Creatinine [Mass/Vol] 0.83 mg/dL Normal 0.58-0.96 [facility] Comment on above: Order Comment: Speci men Type: BLOOD SPECIMEN Ordering Facility: [facility] Address: [address] [place] [address] Performed By: #### 2 4323-8 #### [id number] [address] [place] [address] [place] Creatinine and Glomerular filtration rate.predicted panel (S/P/Bld) 67 mL/min/1.73m??? Normal >=[address] [facility] Comment on above: Order Comment: Jazmin moya Type: BLOOD SPECIMEN Ordering Facility: [facility] Address: [address] [place] [address] Result Comment: Dana mated Glomerular Filtration Rate [...] By: #### 2 4323-8 #### [id number] [address] [place] [address] [place] Glucose [Mass/Vol] 103 mg/dL High 74-99 [facility] Comment on above: Order Comment: Jazmin moya Type: BLOOD SPECIMEN Ordering Facility: [facility] Address: [address] [place] [address] Result Comment: The [place] [employer] (ADA) provides guidance for [...] Standards of Medical Care in Diabetes 2016, [place] [employer]. Diabetes Care. 2016.39(Suppl 1). Performed By: #### 2 4323-8 #### [facility] [id number] [address] [place] [address] [place] Potassium [Moles/Vol] 4.1 mmol/L Normal 3.7-5.1 [facility] Comment on above: Order Comment: Speci men Type: BLOOD SPECIMEN Ordering Facility: [facility] Address: [address] [place] [address] Performed By: #### 2 4323-8 #### [facility] CLIA [id number] [address] [place] [address] [place] Protein [Mass/Vol] 7.1 g/dL Normal 6.3-8.0 [facility] Comment on above: Order Comment: Speci men Type: BLOOD SPECIMEN Ordering Facility: [facility] Address: [address] [place] [address] Performed By: #### 2 4323-8 #### [facility] [id number] [address] [place] [address] [place] Sodium [Moles/Vol] 132 mmol/L Low 136-144 [facility] Comment on above: Order Comment: Speci men Type: BLOOD SPECIMEN Ordering Facility: [facility] Address: [address] [place] [address] Performed By: #### 2 4323-8 #### [facility] [id number] [address] [place] [address] [place] Urea nitrogen [Mass/Vol] 25 mg/dL High 7-[address] [facility] Comment on above: Order Comment: Speci men Type: BLOOD SPECIMEN Ordering Facility: [facility] Address: [address] [place] [address] Performed By: #### 2 4323-8 #### [facility] CLIA [id number] [address] [place] [address] [place] TSH SerPl-aCncon 10-01-2024 TSH Qn 3.210 m[IU]/L Normal 0.270-4.200 [facility] Comment on above: Order Comment: Speci men Type: BLOOD SPECIMEN Ordering Facility: [facility] Address: [address] [place] [address] Performed By: #### 3 016-3 #### [facility] CLIA [id number] [address] [place] [address] [facility] CNOVon 09-17-2024 CNOV Office Visit (FAMMAS) PEGGYESTEBAN Lucio ([id number]) 1935 F [facility] Date Time Provider Department 09/17/24 1:00 PM KODAK HARDING During your visit [...] 2 tablets by mouth daily at bedtime. gk-go-ER-vit F-igxji-yss-coQ10 (DAILY MULTIVITAMIN) 200-100-500 mcg cap Take 1 [...] Cuff Size: Regular (more content not included)... [facility] (ALEXAMDS) ESTEBAN WOODS ([id number]) 1935 F [facility] Date Time Provider Department 07/30/24 1:00 [...] to reduce risk of recurrence of UTI assisted current use of anticoagulant therapy Z79.01 Eliquis [...] 2 tablets by mouth daily at bedtime. mf-zm-OD-vit P-bepqr-zmi-coQ10 (DAILY MULTIVITAMIN) 200-100-500 mcg cap Take 1 [...] no deform (more content not included)... Normal [facility] CNOVon 06-27-2024 CN Office Visit (FAMMAS) ESTEBAN WOODS ([id number]) 1935 F [facility] Date Time Provider Department 06/27/24 1:00 PM KODAK HARDINGMDS During your visit today, we recorded the following information about you: Temperature Pulse Respiration Blood pressure 96.9 degrees 105/minute 18/minute 122/78 Weight Height 69.4 kg 1.575 m Kathy Garrett LPN 06/27/2024 2:08 PM Signed Patient is in office for a Transition of Care Visit following recent hospital stay. Patient was evaluated and treated at [facility] from 06-11-2024 to 06-15-2024 for UTI with [...] stay. Patient was evaluated and treated at [facility] from 06-11-2024 to 06-15-2024 for UTI with [...] 2 tablets by mouth daily at bedtime. mw-qv-YT-vit R-busoa-ugx-coQ10 (DAILY MULTIVITAMIN) 200-100-500 mcg cap Take 1 [...] dysfunction p (more content not included)... Normal [facility] L503.7505on 06-25-2024 Natriuretic peptide B (Bld) [Mass/Vol] 4739 pg/mL High <=1800 [facility] Comment on above: Performed By: #### L 500.2500, L100.0100 #### [facility] [address] [place], [address] Culture, Blood (WB)on 2024 CUB Blood cultures x2, from two different sites No growth in 5 days. Normal [facility] Comment on above: Performed By: #### L 500.2500, L100.0100 #### [facility] [address] [place], [address] CUB Blood cultures x2, from two different sites No growth in 5 days. Normal [facility] Comment on above: Performed By: #### L 500.2500, L100.0100 #### [facility] [address] [place], [address] Absolute neutrophil countOrd ered By: Aster Ramsey on 06-14-2024 Neutrophils (Bld) [#/Vol] 13.0 10*3/uL High 2.0-7.7 [facility] Anion gap in Serum or Plasma Ordered By: Aster Ramsey on 06-14-2024 Anion gap [Moles/Vol] 13 mmol/L 5-15 [facility] BUN/creatinine ratioOrdered By: Aster Ramsey on 06-14-2024 Urea nitrogen/Creatinine [Mass ratio] 29.5 mg/mg High 10-20 [facility] Basophil percentageOrdered B y: Aster Ramsey on 06-14-2024 Basophils/100 WBC (Bld) 0.5 % 0-1 [facility] Bilirubin, totalOrdered By: Aster Ramsey on 06-14-2024 Bilirubin [Mass/Vol] 0.60 mg/dL 0.00-1.30 [facility] CBC W/Diff, Automatedon Absolute Lymph 1.94 X10 3/uL Normal 0.83-4.51 [facility] Comment on above: Performed By: #### L 500.2500, L100.0100 #### [facility] [address] [place], [address] Absolute Neut 13.0 X10 3/uL High 2.0-7.7 [facility] Comment on above: Performed By: #### L 500.2500, L100.0100 #### [facility] [address] [place], [address] Basophils/100 WBC (Bld) 0.5 % Normal 0-1 [facility] Comment on above: Performed By: #### L 500.2500, L100.0100 #### [facility] [address] [place], [address] Eosinophils/100 WBC (Bld) 0.7 % Normal 0-5 [facility] Comment on above: Performed By: #### L 500.2500, L100.0100 #### [facility] [address] [place], [address] Erythrocyte distribution width (RBC) [Ratio] 13.3 % Normal 11.6-14.6 [facility] Comment on above: Performed By: #### L 500.2500, L100.0100 #### [facility] [address] [place], [address] Hematocrit (Bld) [Volume fraction] 43.8 % Normal 37-47 [facility] Comment on above: Performed By: #### L 500.2500, L100.0100 #### [facility] [address] [place], [address] Hemoglobin (Bld) [Mass/Vol] 14.7 g/dL Normal 12.0-15.0 [facility] Comment on above: Performed By: #### L 500.2500, L100.0100 #### [facility] [address] [place], [address] IG% 0.700 Normal 0.0-0.9 [facility] Comment on above: Result Comment: IG% - Immature Granulocytes (promyelocytes, myelocytes and metamyelocytes) > 1% indicates that a LEFT SHIFT is Present. Performed By: #### L 500.2500, L100.0100 #### [facility] [address] [place], [address] Lymphocytes/100 WBC (Bld) 12.0 % Low 19-41 [facility] Comment on above: Performed By: #### L 500.2500, L100.0100 #### [facility] [address] [place], [address] MCH (RBC) [Entitic mass] 32.7 pg High 27.0-32.0 [facility] Comment on above: Performed By: #### L 500.2500, L100.0100 #### [facility] [address] [place], [address] MCHC (RBC) [Mass/Vol] 33.6 g/dL Normal 32-36 [facility] Comment on above: Performed By: #### L 500.2500, L100.0100 #### [facility] [address] [place], [address] MCV (RBC) [Entitic vol] 97.3 fL Normal 81-99 [facility] Comment on above: Performed By: #### L 500.2500, L100.0100 #### [facility] [address] [place], [address] Monocytes/100 WBC (Bld) 6.2 % Normal 0-10 [facility] Comment on above: Performed By: #### L 500.2500, L100.0100 #### [facility] [address] [place], [address] Neutrophils/100 WBC (Bld) 79.9 % High 47-70 [facility] Comment on above: Performed By: #### L 500.2500, L100.0100 #### [facility] [address] [place], [address] Nucleated RBC (Bld) [#/Vol] 0 10*3/uL Normal 0-5 [facility] Comment on above: Performed By: #### L 500.2500, L100.0100 #### [facility] [address] [place], [address] Platelet mean volume (Bld) [Entitic vol] 9.3 fL Normal 6.2-12.0 [facility] Comment on above: Performed By: #### L 500.2500, L100.0100 #### [facility] [address] [place], [address] Platelets (Bld) [#/Vol] 260 10*3/uL Normal 150-450 [facility] Comment on above: Performed By: #### L 500.2500, L100.0100 #### [facility] [address] [place], [address] RBC (Bld) [#/Vol] 4.50 10*6/uL Normal 4.2-5.[address] [facility] Comment on above: Performed By: #### L 500.2500, L100.0100 #### [facility] [address] [place], [address] RDW SD 47.5 fl High 35.1-43.9 [facility] Comment on above: Performed By: #### L 500.2500, L100.0100 #### [facility] [address] [place], [address] WBC (Bld) [#/Vol] 16.2 10*3/uL High 4.4-11.[address] [facility] Comment on above: Performed By: #### L 500.2500, L100.0100 #### [facility] [address] [place], [address] Carbon dioxide, total [Moles /volume] in Central venous bloodOrdered By: Aster Ramsey on 06-14-2024 CO2 [Moles/Vol] 23.8 mmol/L 21.0-32.0 [facility] Chloride assayOrdered By: Jovany Ramsey on 06-14-2024 Chloride [Moles/Vol] 97 mmol/L Low 98-108 [facility] Comprehensive Metabolic Prof ilon 06-14-2024 Albumin [Mass/Vol] 3.3 g/dL Low 3.4-4.8 [facility] Comment on above: Performed By: #### L 500.2500, L100.0100 #### [facility] [address] [place], [address] Albumin/Globulin [Mass ratio] 0.8 {ratio} Low 0.9-2.4 [facility] Comment on above: Performed By: #### L 500.2500, L100.0100 #### [facility] [address] [place], [address] ALK PHOS 70 U/L Normal 35-104 [facility] Comment on above: Performed By: #### L 500.2500, L100.0100 #### [facility] [address] [place], [address] ALT [Catalytic activity/Vol] 14 U/L Normal <=34 [facility] Comment on above: Performed By: #### L 500.2500, L100.0100 #### [facility] [address] [place], [address] AST [Catalytic activity/Vol] 19 U/L Normal <=31 [facility] Comment on above: Performed By: #### L 500.2500, L100.0100 #### [facility] [address] [place], [address] Bilirubin [Mass/Vol] 0.60 mg/dL Normal 0.00-1.30 [facility] Comment on above: Performed By: #### L 500.2500, L100.0100 #### [facility] [address] [place], [address] BUN/CRE 29.5 RATIO High 10-20 [facility] Comment on above: Performed By: #### L 500.2500, L100.0100 #### [facility] [address] [place], [address] Calcium [Mass/Vol] 9.7 mg/dL Normal 7.6-11.0 [facility] Comment on above: Performed By: #### L 500.2500, L100.0100 #### [facility] [address] [place], [address] Chloride [Moles/Vol] 97 mmol/L Low 98-108 [facility] Comment on above: Performed By: #### L 500.2500, L100.0100 #### [facility] [address] [place], [address] CO2 [Moles/Vol] 23.8 mmol/L Normal 21.0-32.0 [facility] Comment on above: Performed By: #### L 500.2500, L100.0100 #### [facility] [address] [place], [address] Creatinine [Mass/Vol] 1.11 mg/dL Normal 0.70-1.20 [facility] Comment on above: Performed By: #### L 500.2500, L100.0100 #### [facility] [address] [place], [address] ECRCL 32.00 ml/min Low 50-250 [facility] Comment on above: Performed By: #### L 500.2500, L100.0100 #### [facility] [address] [place], [address] GAP 13 Normal 5-15 [facility] Comment on above: Performed By: #### L 500.2500, L100.0100 #### [facility] [address] [place], [address] GFR/1.73 sq M.predicted among non-blacks MDRD (S/P/Bld) [Vol rate/Area] 48 mL/min/{1.73_m2} Low >60 [facility] Comment on above: Result Comment: mL/m in/1.73m2 CKD-EPI Creatinine Equation (2020) Performed By: #### L 500.2500, L100.0100 #### [facility] [address] [place], [address] Globulin (S) [Mass/Vol] 4.2 g/dL Normal 2.2-4.2 [facility] Comment on above: Performed By: #### L 500.2500, L100.0100 #### [facility] [address] [place], [address] Glucose [Mass/Vol] 166 mg/dL High 70-99 [facility] Comment on above: Performed By: #### L 500.2500, L100.0100 #### [facility] [address] [place], [address] Potassium [Moles/Vol] 3.4 mmol/L Normal 3.3-5.1 [facility] Comment on above: Performed By: #### L 500.2500, L100.0100 #### [facility] [address] [place], [address] Sodium [Moles/Vol] 135 mmol/L Normal 133-145 [facility] Comment on above: Performed By: #### L 500.2500, L100.0100 #### [facility] [address] [place], [address] T PROT 7.5 g/dL Normal 5.9-8.4 [facility] Comment on above: Performed By: #### L 500.2500, L100.0100 #### [facility] [address] [place], [address] Urea nitrogen [Mass/Vol] 33 mg/dL High 4-19 [facility] Comment on above: Performed By: #### L 500.2500, L100.0100 #### [facility] [address] [place], [address] Eosinophil percentageOrdered By: Aster Ramsey on 06-14-2024 Eosinophils/100 WBC (Bld) 0.7 % 0-5 [facility] Erythrocyte distribution wid th ratioOrdered By: Aster Ramsey on 06-14-2024 Erythrocyte distribution width (RBC) [Ratio] 13.3 % 11.6-14.6 [facility] Erythrocyte distribution wid th standard deviationOrdered By: Aster Ramsey on 06-14-2024 Erythrocyte distribution width (RBC) [Entitic vol] 47.5 fL High 35.1-43.9 [facility] Estimation of creatinine rianna aranceOrdered By: Aster Ramsey on 06-14-2024 Estimated Creatinine Clearance Calc 32.00 ml/min Low 50-250 [facility] GFR/1.73 sq M.predicted elio g non-blacks MDRD (S/P/Bld) [Vol rate/Area]Ordered By: Aster Ramsey on 06-14-2024 Estimated GFR (MDRD) Non-Af Amer 48 Low >60 [facility] Comment on above: mL/min/1.73m2 CKD-EP I Creatinine Equation (2020) Hematocrit Auto (Bld) [Volum e fraction]Ordered By: Aster Ramsey on 06-14-2024 Hematocrit (Bld) [Volume fraction] 43.8 % 37-47 [facility] Hemoglobin measurementOrdere d By: Aster Ramsey on 06-14-2024 Hemoglobin (Bld) [Mass/Vol] 14.7 g/dL 12.0-15.0 [facility] Immature granulocytes/100 WB C Auto (Bld)Ordered By: Aster Ramsey on 06-14-2024 Immature granulocytes/100 WBC (Bld) 0.700 % 0.0-0.9 [facility] Comment on above: IG% - Immature Granu locytes (promyelocytes, myelocytes and metamyelocytes) > 1% indicates that a LEFT SHIFT is Present. Laboratory - Chemistry and C hemistry - challengeOrdered By: Aster Ramsey on 06-14-2024 AST [Catalytic activity/Vol] 19 U/L <32 [facility] Lymphocytes Auto (Unsp spec) [#/Vol]Ordered By: Aster Ramsey on 06-14-2024 Lymphocytes (Bld) [#/Vol] 1.94 10*3/uL 0.83-4.51 [facility] Lymphocytes/100 WBC Auto (Un sp spec)Ordered By: Aster Ramsey on 06-14-2024 Lymphocytes/100 WBC (Bld) 12.0 % Low 19-41 [facility] MCV (mean corpuscular volume ) determinationOrdered By: Aster Ramsey on 06-14-2024 MCV (RBC) [Entitic vol] 97.3 fL 81-99 [facility] Mean corpuscular hemoglobin (MCH) determinationOrdered By: Aster Ramsey on 06-14-2024 MCH (RBC) [Entitic mass] 32.7 pg High 27.0-32.0 [facility] Mean corpuscular hemoglobin concentration (MCHC) determinationOrdered By: Aster Ramsey on 06-14-2024 MCHC (RBC) [Mass/Vol] 33.6 g/dL 32-36 [facility] Mean platelet volume determi nationOrdered By: Aster Ramsey on 06-14-2024 Platelet mean volume (Bld) [Entitic vol] 9.3 fL 6.2-12.0 [facility] Monocyte percentageOrdered B y: Aster Ramsey on 06-14-2024 Monocytes/100 WBC (Bld) 6.2 % 0-10 [facility] Neutrophil percentageOrdered By: Aster Ramsey on 06-14-2024 Neutrophils/100 WBC (Bld) 79.9 % High 47-70 [facility] Nucleated red blood cell per centageOrdered By: Aster Ramsey on 06-14-2024 Nucleated RBC/100 WBC (Bld) [Ratio] 0 % 0-5 [facility] Platelet countOrdered By: Jovany Ramsey on 06-14-2024 Platelets (Bld) [#/Vol] 260 10*3/uL 150-450 [facility] Potassium (Unsp spec) [Mass/ Vol]Ordered By: Aster Ramsey on 06-14-2024 Potassium [Moles/Vol] 3.4 mmol/L 3.3-5.1 [facility] RBC Auto (Bld) [#/Vol]Ordere d By: Aster Ramsey on 06-14-2024 RBC (Bld) [#/Vol] 4.50 10*6/uL 4.2-5.[address] [facility] Serum creatinine measurement (mass/volume)Ordered By: Aster Ramsey on 06-14-2024 Creatinine [Mass/Vol] 1.11 mg/dL 0.70-1.20 [facility] Serum globulin measurementOr dered By: Aster Ramsey on 06-14-2024 Globulin (S) [Mass/Vol] 4.2 g/dL 2.2-4.2 [facility] Serum glucose measurement (m ass/volume)Ordered By: Aster Ramsey on 06-14-2024 Glucose [Mass/Vol] 166 mg/dL High 70-99 [facility] Serum or plasma alanine ball otransferase (ALT) measurementOrdered By: Aster Ramsey on 06-14-2024 ALT [Catalytic activity/Vol] 14 U/L <35 [facility] Serum or plasma albumin sarbjit urement (mass/volume)Ordered By: Aster Ramsey on 06-14-2024 Albumin [Mass/Vol] 3.3 g/dL Low 3.4-4.8 [facility] Serum or plasma albumin/glob ulin mass ratioOrdered By: Aster Ramsey on 06-14-2024 Albumin/Globulin [Mass ratio] 0.8 {ratio} Low 0.9-2.4 [facility] Serum or plasma alkaline mauri sphatase measurementOrdered By: Aster Ramsey on 06-14-2024 ALP [Catalytic activity/Vol] 70 U/L 35-104 [facility] Serum or plasma calcium sarbjit urement (mass/volume)Ordered By: Aster Ramsey on 06-14-2024 Calcium [Mass/Vol] 9.7 mg/dL 7.6-11.0 [facility] Serum or plasma urea nitroge n measurement (mass/volume)Ordered By: Aster Ramsey on 06-14-2024 Urea nitrogen [Mass/Vol] 33 mg/dL High 4-19 [facility] Sodium levelOrdered By: Azam Ramsey on 06-14-2024 Sodium [Moles/Vol] 135 mmol/L 133-145 [facility] Total proteinOrdered By: Norma Ramsey on 06-14-2024 Protein [Mass/Vol] 7.5 g/dL 5.9-8.4 [facility] Urine Cultureon 06-14-2024 URC #2 Organism is too fastidious for routine susceptibility studies. Presumptive E. coli [place] Count 50,000-80,000 Aerococcus sanguinicola Aerococcus sanguinicola Presumptive [...] TMP SMX Islt GERI <=20 S Normal [facility] Comment on above: Performed By: #### L 500.2500, L100.0100 #### [facility] [address] [place], [address] White blood cell (WBC) count Ordered By: Aster Ramsey on 06-14-2024 WBC (Bld) [#/Vol] 16.2 10*3/uL High 4.4-11.[address] [facility] Basic Metabolic Profile (BMP )on 06-13-2024 BUN/CRE 29.9 RATIO High 10-20 [facility] Comment on above: Performed By: #### L 500.2500, L100.0100 #### [facility] [address] [place], [address] Calcium [Mass/Vol] 10.0 mg/dL Normal 7.6-11.0 [facility] Comment on above: Performed By: #### L 500.2500, L100.0100 #### [facility] [address] [place], [address] Chloride [Moles/Vol] 99 mmol/L Normal 98-108 [facility] Comment on above: Performed By: #### L 500.2500, L100.0100 #### [facility] [address] [place], [address] CO2 [Moles/Vol] 24.1 mmol/L Normal 21.0-32.0 [facility] Comment on above: Performed By: #### L 500.2500, L100.0100 #### [facility] [address] [place], [address] Creatinine [Mass/Vol] 0.87 mg/dL Normal 0.70-1.20 [facility] Comment on above: Performed By: #### L 500.2500, L100.0100 #### [facility] [address] [place], [address] ECRCL 40.91 ml/min Low 50-250 [facility] Comment on above: Performed By: #### L 500.2500, L100.0100 #### [facility] [address] [place], [address] GAP 13 Normal 5-15 [facility] Comment on above: Performed By: #### L 500.2500, L100.0100 #### [facility] [address] [place], [address] GFR/1.73 sq M.predicted among non-blacks MDRD (S/P/Bld) [Vol rate/Area] 64 mL/min/{1.73_m2} Normal >60 [facility] Comment on above: Result Comment: mL/m in/1.73m2 CKD-EPI Creatinine Equation (2020) Performed By: #### L 500.2500, L100.0100 #### [facility] [address] [place], [address] Glucose [Mass/Vol] 122 mg/dL High 70-99 [facility] Comment on above: Performed By: #### L 500.2500, L100.0100 #### [facility] [address] [place], [address] Potassium [Moles/Vol] 4.0 mmol/L Normal 3.3-5.1 [facility] Comment on above: Performed By: #### L 500.2500, L100.0100 #### [facility] [address] [place], [address] Sodium [Moles/Vol] 136 mmol/L Normal 133-145 [facility] Comment on above: Performed By: #### L 500.2500, L100.0100 #### [facility] [address] [place], [address] Urea nitrogen [Mass/Vol] 26 mg/dL High 4-19 [facility] Comment on above: Performed By: #### L 500.2500, L100.0100 #### [facility] [address] [place], [address] CBC W/Diff, Automatedon 03-0 5-2024 Absolute Lymph 1.86 X10 3/uL Normal 0.83-4.51 [facility] Comment on above: Performed By: #### L 500.2500, L100.0100 #### [facility] [address] [place], [address] Absolute Neut 12.9 X10 3/uL High 2.0-7.7 [facility] Comment on above: Performed By: #### L 500.2500, L100.0100 #### [facility] [address] [place], [address] Basophils/100 WBC (Bld) 0.5 % Normal 0-1 [facility] Comment on above: Performed By: #### L 500.2500, L100.0100 #### [facility] [address] [place], [address] Eosinophils/100 WBC (Bld) 0.6 % Normal 0-5 [facility] Comment on above: Performed By: #### L 500.2500, L100.0100 #### [facility] [address] [place], [address] Erythrocyte distribution width (RBC) [Ratio] 13.3 % Normal 11.6-14.6 [facility] Comment on above: Performed By: #### L 500.2500, L100.0100 #### [facility] [address] [place], [address] Hematocrit (Bld) [Volume fraction] 43.6 % Normal 37-47 [facility] Comment on above: Performed By: #### L 500.2500, L100.0100 #### [facility] [address] [place], [address] Hemoglobin (Bld) [Mass/Vol] 14.6 g/dL Normal 12.0-15.0 [facility] Comment on above: Performed By: #### L 500.2500, L100.0100 #### [facility] [address] [place], [address] IG% 0.500 Normal 0.0-0.9 [facility] Comment on above: Result Comment: IG% - Immature Granulocytes (promyelocytes, myelocytes and metamyelocytes) > 1% indicates that a LEFT SHIFT is Present. Performed By: #### L 500.2500, L100.0100 #### [facility] [address] [place], [address] Lymphocytes/100 WBC (Bld) 11.5 % Low 19-41 [facility] Comment on above: Performed By: #### L 500.2500, L100.0100 #### [facility] [address] [place], [address] MCH (RBC) [Entitic mass] 32.2 pg High 27.0-32.0 [facility] Comment on above: Performed By: #### L 500.2500, L100.0100 #### [facility] [address] [place], [address] MCHC (RBC) [Mass/Vol] 33.5 g/dL Normal 32-36 [facility] Comment on above: Performed By: #### L 500.2500, L100.0100 #### [facility] [address] [place], [address] MCV (RBC) [Entitic vol] 96.2 fL Normal 81-99 [facility] Comment on above: Performed By: #### L 500.2500, L100.0100 #### [facility] [address] [place], [address] Monocytes/100 WBC (Bld) 7.5 % Normal 0-10 [facility] Comment on above: Performed By: #### L 500.2500, L100.0100 #### [facility] [address] [place], [address] Neutrophils/100 WBC (Bld) 79.4 % High 47-70 [facility] Comment on above: Performed By: #### L 500.2500, L100.0100 #### [facility] [address] [place], [address] Nucleated RBC (Bld) [#/Vol] 0 10*3/uL Normal 0-5 [facility] Comment on above: Performed By: #### L 500.2500, L100.0100 #### [facility] [address] [place], [address] Platelet mean volume (Bld) [Entitic vol] 9.2 fL Normal 6.2-12.0 [facility] Comment on above: Performed By: #### L 500.2500, L100.0100 #### [facility] [address] [place], [address] Platelets (Bld) [#/Vol] 252 10*3/uL Normal 150-450 [facility] Comment on above: Performed By: #### L 500.2500, L100.0100 #### [facility] [address] [place], [address] RBC (Bld) [#/Vol] 4.53 10*6/uL Normal 4.2-5.[address] [facility] Comment on above: Performed By: #### L 500.2500, L100.0100 #### [facility] [address] [place], [address] RDW SD 47.0 fl High 35.1-43.9 [facility] Comment on above: Performed By: #### L 500.2500, L100.0100 #### [facility] [address] [place], [address] WBC (Bld) [#/Vol] 16.2 10*3/uL High 4.4-11.[address] [facility] Comment on above: Performed By: #### L 500.2500, L100.0100 #### [facility] [address] [place], [address] BNP,B-Type NATRIURETIC PEPTI Faiza 06-12-2024 Natriuretic peptide B (Bld) [Mass/Vol] 4739.0 pg/mL High 0-100 [facility] Comment on above: Order Comment: PROBN P RESULTS INCORRECTLY ENTERED INTO BNP TEST ORDER. Result Comment: PROB [employer] RESULTS INCORRECTLY ENTERED INTO BNP TEST ORDER. Performed By: #### L 500.2500, L100.0100 #### [facility] [address] [place], [address] Basic Metabolic Profile (BMP )on 06-12-2024 BUN/CRE 24.6 RATIO High 10-20 [facility] Comment on above: Performed By: #### L 500.2500, L100.0100 #### [facility] [address] [place], [address] Calcium [Mass/Vol] 9.9 mg/dL Normal 7.6-11.0 [facility] Comment on above: Performed By: #### L 500.2500, L100.0100 #### [facility] [address] [place], [address] Chloride [Moles/Vol] 95 mmol/L Low 98-108 [facility] Comment on above: Performed By: #### L 500.2500, L100.0100 #### [facility] [address] [place], [address] CO2 [Moles/Vol] 25.4 mmol/L Normal 21.0-32.0 [facility] Comment on above: Performed By: #### L 500.2500, L100.0100 #### [facility] [address] [place], [address] Creatinine [Mass/Vol] 0.85 mg/dL Normal 0.70-1.20 [facility] Comment on above: Performed By: #### L 500.2500, L100.0100 #### [facility] [address] [place], [address] ECRCL 42.05 ml/min Low 50-250 [facility] Comment on above: Performed By: #### L 500.2500, L100.0100 #### [facility] [address] [place], [address] GAP 13 Normal 5-15 [facility] Comment on above: Performed By: #### L 500.2500, L100.0100 #### [facility] [address] [place], [address] GFR/1.73 sq M.predicted among non-blacks MDRD (S/P/Bld) [Vol rate/Area] 66 mL/min/{1.73_m2} Normal >60 [facility] Comment on above: Result Comment: mL/m in/1.73m2 CKD-EPI Creatinine Equation (2020) Performed By: #### L 500.2500, L100.0100 #### [facility] [address] [place], [address] Glucose [Mass/Vol] 132 mg/dL High 70-99 [facility] Comment on above: Performed By: #### L 500.2500, L100.0100 #### [facility] [address] [place], [address] Potassium [Moles/Vol] 3.4 mmol/L Normal 3.3-5.1 [facility] Comment on above: Performed By: #### L 500.2500, L100.0100 #### [facility] [address] [place], [address] Sodium [Moles/Vol] 134 mmol/L Normal 133-145 [facility] Comment on above: Performed By: #### L 500.2500, L100.0100 #### [facility] [address] [place], [address] Urea nitrogen [Mass/Vol] 21 mg/dL High 4-19 [facility] Comment on above: Performed By: #### L 500.2500, L100.0100 #### [facility] [address] [place], [address] CBC W/Diff, Automatedon 03-0 -2024 Absolute Lymph 1.98 X10 3/uL Normal 0.83-4.51 [facility] Comment on above: Performed By: #### L 500.2500, L100.0100 #### [facility] [address] [place], [address] Absolute Neut 10.2 X10 3/uL High 2.0-7.7 [facility] Comment on above: Performed By: #### L 500.2500, L100.0100 #### [facility] [address] [place], [address] Basophils/100 WBC (Bld) 0.4 % Normal 0-1 [facility] Comment on above: Performed By: #### L 500.2500, L100.0100 #### [facility] [address] [place], [address] Eosinophils/100 WBC (Bld) 0.7 % Normal 0-5 [facility] Comment on above: Performed By: #### L 500.2500, L100.0100 #### [facility] [address] [place], [address] Erythrocyte distribution width (RBC) [Ratio] 13.2 % Normal 11.6-14.6 [facility] Comment on above: Performed By: #### L 500.2500, L100.0100 #### [facility] [address] [place], [address] Hematocrit (Bld) [Volume fraction] 43.8 % Normal 37-47 [facility] Comment on above: Performed By: #### L 500.2500, L100.0100 #### [facility] [address] [place], [address] Hemoglobin (Bld) [Mass/Vol] 14.7 g/dL Normal 12.0-15.0 [facility] Comment on above: Performed By: #### L 500.2500, L100.0100 #### [facility] [address] [place], [address] IG% 0.600 Normal 0.0-0.9 [facility] Comment on above: Result Comment: IG% - Immature Granulocytes (promyelocytes, myelocytes and metamyelocytes) > 1% indicates that a LEFT SHIFT is Present. Performed By: #### L 500.2500, L100.0100 #### [facility] [address] [place], [address] Lymphocytes/100 WBC (Bld) 14.7 % Low 19-41 [facility] Comment on above: Performed By: #### L 500.2500, L100.0100 #### [facility] [address] [place], [address] MCH (RBC) [Entitic mass] 32.5 pg High 27.0-32.0 [facility] Comment on above: Performed By: #### L 500.2500, L100.0100 #### [facility] [address] [place], [address] MCHC (RBC) [Mass/Vol] 33.6 g/dL Normal 32-36 [facility] Comment on above: Performed By: #### L 500.2500, L100.0100 #### [facility] [address] [place], [address] MCV (RBC) [Entitic vol] 96.7 fL Normal 81-99 [facility] Comment on above: Performed By: #### L 500.2500, L100.0100 #### [facility] [address] [place], [address] Monocytes/100 WBC (Bld) 8.1 % Normal 0-10 [facility] Comment on above: Performed By: #### L 500.2500, L100.0100 #### [facility] [address] [place], [address] Neutrophils/100 WBC (Bld) 75.5 % High 47-70 [facility] Comment on above: Performed By: #### L 500.2500, L100.0100 #### [facility] [address] [place], [address] Nucleated RBC (Bld) [#/Vol] 0 10*3/uL Normal 0-5 [facility] Comment on above: Performed By: #### L 500.2500, L100.0100 #### [facility] [address] [place], [address] Platelet mean volume (Bld) [Entitic vol] 9.2 fL Normal 6.2-12.0 [facility] Comment on above: Performed By: #### L 500.2500, L100.0100 #### [facility] [address] [place], [address] Platelets (Bld) [#/Vol] 264 10*3/uL Normal 150-450 [facility] Comment on above: Performed By: #### L 500.2500, L100.0100 #### [facility] [address] [place], [address] RBC (Bld) [#/Vol] 4.53 10*6/uL Normal 4.2-5.[address] [facility] Comment on above: Performed By: #### L 500.2500, L100.0100 #### [facility] [address] [place], [address] RDW SD 47.0 fl High 35.1-43.9 [facility] Comment on above: Performed By: #### L 500.2500, L100.0100 #### [facility] [address] [place], [address] WBC (Bld) [#/Vol] 13.5 10*3/uL High 4.4-11.[address] [facility] Comment on above: Performed By: #### L 500.2500, L100.0100 #### [facility] [address] [place], [address] Echo Completeon 06-12-2024 Echo Complete [facility] [address] [place] [address] Echo Complete 06/12/24 1013 MR#: [id number] Acct: [id number] Name: ESTEBAN WOODS Rep #: [id number] : 1935 88 From: Demetrius Terrell MD [...] Dictated: 06/12/24 1013 Date Transcribed: 06/12/24 1323 Desktop Support Specialist: Signed Normal [facility] Echocardiogram study reportO rdered By: Demetrius Terrell on 06-12-2024 Study report [facility] [place] [place] [address] [address] Echo Complete 06/12/24 1013 MR#: [id number] Acct: [id number] Name: ESTEBAN WOODS Rep #:[id number] : 1935 88 From: Demetrius Terrell MD [...] Dictated: 06/12/24 1013 Date Transcribed: 06/12/24 1323 Desktop Support Specialist: Signed [facility] Work Phone: Electrocardiogram reportOrde red By: Benjamín Hendrix on 06-12-2024 EKG study [facility] [address] [place] [address] 12 Lead EKG 06/11/24 1909 MR#: [id number] Acct: [id number] Name: ESTEBAN WOODS Rep #:[id number] : 1935 88 From: Benjamín oquendo MD [...] QRS Abnormal ECG Confirmed by Benjamín Hendrix ([id number]), assistant merchandiser ANSON COHEN ([id number]) on 06/12/2024 10:44:57 AM Referred By: Mio Benitez Confirmed By: Benjamín Hendrix 06/12/24 1044 Date _ Benjamín Hendrix MD CC: Dr. Junaid Travis MD; Dr. Mio Benitez MD; Dr. Kodak Harding MD; Dr. Bob Liu DO ~ Signed [facility] Other Phone: TSH DL <= 0.005 mIU/L QnOrde red By: Junaid Travis on 06-12-2024 Thyroid Stimulating Hormone (TSH) 3.320 uIU/mL 0.300-4.200 [facility] Thyroid Stim Hormone (TSH)on 06-12-2024 TSH 3.320 uIU/mL Normal 0.300-4.200 [facility] Comment on above: Performed By: #### L 500.2500, L100.0100 #### [facility] [address] [place], [address] 12 Lead EKGon 06-11-2024 12 Lead EKG [facility] [address] [place] [address] 12 Lead EKG 06/11/24 1909 MR#: [id number] Acct: [id number] Name: ESTEBAN WOODS Rep #: [id number] : 1935 88 From: Benjamín Hendrix MD [...] QRS Abnormal ECG Confirmed by Benjamín Hendrix ([id number]), assistant merchandiser ANSON COHEN ([id number]) on 06/12/2024 10:44:57 AM Referred By: Mio Benitez Confirmed By: Benjamín Hendrix 06/12/24 1044 Date Benjamín Hendrix MD CC: Dr. Junaid Travis MD; Dr. Mio Benitez MD; Dr. Kodak Harding MD; Dr. Bob Liu DO Signed Normal [facility] Amorphous sediment detection in urine sediment by light microscopyOrdered By: Bob Liu on 06-11-2024 Amorphous sediment LM Ql (Urine sed) 1+ [facility] BNP (brain natriuretic pepti de measurement)Ordered By: Bob Liu on 06-11-2024 Natriuretic peptide B (Bld) [Mass/Vol] 4739.0 pg/mL High 0-100 [facility] Bilirubin Test strip Ql (U)O rdered By: Bob Liu on 06-11-2024 Bilirubin Ql (U) Negative Negative [facility] Brain/Head without Contrasto n 06-11-2024 Brain/Head without Contrast [facility] Imaging Services [address] [place] [address] Brain/Head without Contrast MR#: [id number] Acct: [id number] Name: ESTEBAN WOODS Rep #: [id number] : 1935 F 88 From: Mio Blackwood MD PCP: Dr. Kodak Harding MD Status: PRE ER Study: Brain/Head without Contrast Date of Exam: 07/03 Exam# [id number] Ordering Dr: Bob Liu DO EXAM: BRAIN/HEAD [...] Kodak Harding MD; Dr. Bob Liu DO Desktop Support Specialist: Signed Normal [facility] CBC W/Diff, Automatedon 03-0 3-2024 Absolute Lymph 3.12 X10 3/uL Normal 0.83-4.51 [facility] Comment on above: Performed By: #### L 501.2450, L500.4050, L503.6005, L100.0100 #### [facility] [address] [place], [address] Absolute Neut 10.2 X10 3/uL High 2.0-7.7 [facility] Comment on above: Performed By: #### L 501.2450, L500.4050, L503.6005, L100.0100 #### [facility] [address] [place], [address] Basophils/100 WBC (Bld) 0.6 % Normal 0-1 [facility] Comment on above: Performed By: #### L 501.2450, L500.4050, L503.6005, L100.0100 #### [facility] [address] [place], [address] Eosinophils/100 WBC (Bld) 0.8 % Normal 0-5 [facility] Comment on above: Performed By: #### L 501.2450, L500.4050, L503.6005, L100.0100 #### [facility] [address] [place], [address] Erythrocyte distribution width (RBC) [Ratio] 13.2 % Normal 11.6-14.6 [facility] Comment on above: Performed By: #### L 501.2450, L500.4050, L503.6005, L100.0100 #### [facility] [address] [place], [address] Hematocrit (Bld) [Volume fraction] 45.0 % Normal 37-47 [facility] Comment on above: Performed By: #### L 501.2450, L500.4050, L503.6005, L100.0100 #### [facility] [address] [place], [address] Hemoglobin (Bld) [Mass/Vol] 14.9 g/dL Normal 12.0-15.0 [facility] Comment on above: Performed By: #### L 501.2450, L500.4050, L503.6005, L100.0100 #### [facility] [address] [place], [address] IG% 0.500 Normal 0.0-0.9 [facility] Comment on above: Result Comment: IG% - Immature Granulocytes (promyelocytes, myelocytes and metamyelocytes) > 1% indicates that a LEFT SHIFT is Present. Performed By: #### L 501.2450, L500.4050, L503.6005, L100.0100 #### [facility] [address] [place], [address] Lymphocytes/100 WBC (Bld) 21.4 % Normal 19-41 [facility] Comment on above: Performed By: #### L 501.2450, L500.4050, L503.6005, L100.0100 #### [facility] [address] [place], [address] MCH (RBC) [Entitic mass] 32.5 pg High 27.0-32.0 [facility] Comment on above: Performed By: #### L 501.2450, L500.4050, L503.6005, L100.0100 #### [facility] [address] [place], [address] MCHC (RBC) [Mass/Vol] 33.1 g/dL Normal 32-36 [facility] Comment on above: Performed By: #### L 501.2450, L500.4050, L503.6005, L100.0100 #### [facility] [address] [place], [address] MCV (RBC) [Entitic vol] 98.0 fL Normal 81-99 [facility] Comment on above: Performed By: #### L 501.2450, L500.4050, L503.6005, L100.0100 #### [facility] [address] [place], [address] Monocytes/100 WBC (Bld) 7.0 % Normal 0-10 [facility] Comment on above: Performed By: #### L 501.2450, L500.4050, L503.6005, L100.0100 #### [facility] [address] [place], [address] Neutrophils/100 WBC (Bld) 69.7 % Normal 47-70 [facility] Comment on above: Performed By: #### L 501.2450, L500.4050, L503.6005, L100.0100 #### [facility] [address] [place], [address] Nucleated RBC (Bld) [#/Vol] 0 10*3/uL Normal 0-5 [facility] Comment on above: Performed By: #### L 501.2450, L500.4050, L503.6005, L100.0100 #### [facility] [address] [place], [address] Platelet mean volume (Bld) [Entitic vol] 9.4 fL Normal 6.2-12.0 [facility] Comment on above: Performed By: #### L 501.2450, L500.4050, L503.6005, L100.0100 #### [facility] [address] [place], [address] Platelets (Bld) [#/Vol] 262 10*3/uL Normal 150-450 [facility] Comment on above: Performed By: #### L 501.2450, L500.4050, L503.6005, L100.0100 #### [facility] [address] [place], [address] RBC (Bld) [#/Vol] 4.59 10*6/uL Normal 4.2-5.[address] [facility] Comment on above: Performed By: #### L 501.2450, L500.4050, L503.6005, L100.0100 #### [facility] [address] [place], [address] RDW SD 47.4 fl High 35.1-43.9 [facility] Comment on above: Performed By: #### L 501.2450, L500.4050, L503.6005, L100.0100 #### [facility] [address] [place], [address] WBC (Bld) [#/Vol] 14.6 10*3/uL High 4.4-11.0 [facility] [facility] Comment on above: Performed By: #### L 501.2450, L500.4050, L503.6005, L100.0100 #### [facility] [address] [place], [address] Chest 1 View (Portable)on Chest 1 View (Portable) [facility] Imaging Services [address] [place] [address] Chest 1 View (Portable) MR#: [id number] Acct: [id number] Name: ESTEBAN WOODS Rep #: [id number] : 1935 F 88 From: Mio Blackwood MD PCP: Dr. Kodak Harding MD Status: PRE ER Study: Chest 1 View (Portable) Date of Exam: 06/11/24 Exam# [id number] Ordering Dr: Bob Liu DO PROCEDURE: CHEST [...] Kodak Harding MD; Dr. Bob Liu DO Desktop Support Specialist: Signed Normal [facility] Comprehensive Metabolic Prof ilon 06-11-2024 Albumin [Mass/Vol] 3.8 g/dL Normal 3.4-4.8 [facility] Comment on above: Performed By: #### L 501.2450, L500.4050, L503.6005, L100.0100 #### [facility] [address] [place], [address] Albumin/Globulin [Mass ratio] 0.9 {ratio} Normal 0.9-2.4 [facility] Comment on above: Performed By: #### L 501.2450, L500.4050, L503.6005, L100.0100 #### [facility] [address] [place], [address] ALK PHOS 80 U/L Normal 35-104 [facility] Comment on above: Performed By: #### L 501.2450, L500.4050, L503.6005, L100.0100 #### [facility] [address] [place], [address] ALT [Catalytic activity/Vol] 18 U/L Normal <=34 [facility] Comment on above: Performed By: #### L 501.2450, L500.4050, L503.6005, L100.0100 #### [facility] [address] [place], [address] AST [Catalytic activity/Vol] 39 U/L High <=31 [facility] Comment on above: Performed By: #### L 501.2450, L500.4050, L503.6005, L100.0100 #### [facility] [address] [place], [address] Bilirubin [Mass/Vol] 1.53 mg/dL High 0.00-1.30 [facility] Comment on above: Performed By: #### L 501.2450, L500.4050, L503.6005, L100.0100 #### [facility] [address] [place], [address] BUN/CRE 22.6 RATIO High 10-20 [facility] Comment on above: Performed By: #### L 501.2450, L500.4050, L503.6005, L100.0100 #### [facility] [address] [place], [address] Calcium [Mass/Vol] 10.3 mg/dL Normal 7.6-11.0 [facility] Comment on above: Performed By: #### L 501.2450, L500.4050, L503.6005, L100.0100 #### [facility] [address] [place], [address] Chloride [Moles/Vol] 95 mmol/L Low 98-108 [facility] Comment on above: Performed By: #### L 501.2450, L500.4050, L503.6005, L100.0100 #### [facility] [address] [place], [address] CO2 [Moles/Vol] 22.6 mmol/L Normal 21.0-32.0 [facility] Comment on above: Performed By: #### L 501.2450, L500.4050, L503.6005, L100.0100 #### [facility] [address] [place], [address] Creatinine [Mass/Vol] 1.00 mg/dL Normal 0.70-1.20 [facility] Comment on above: Performed By: #### L 501.2450, L500.4050, L503.6005, L100.0100 #### [facility] [address] [place], [address] GAP 15 Normal 5-15 [facility] Comment on above: Performed By: #### L 501.2450, L500.4050, L503.6005, L100.0100 #### [facility] [address] [place], [address] GFR/1.73 sq M.predicted among non-blacks MDRD (S/P/Bld) [Vol rate/Area] 54 mL/min/{1.73_m2} Low >60 [facility] Comment on above: Result Comment: mL/m in/1.73m2 CKD-EPI Creatinine Equation (2020) Performed By: #### L 501.2450, L500.4050, L503.6005, L100.0100 #### [facility] [address] [place], [address] Globulin (S) [Mass/Vol] 4.4 g/dL High 2.2-4.2 [facility] Comment on above: Performed By: #### L 501.2450, L500.4050, L503.6005, L100.0100 #### [facility] [address] [place], [address] Glucose [Mass/Vol] 113 mg/dL High 70-99 [facility] Comment on above: Performed By: #### L 501.2450, L500.4050, L503.6005, L100.0100 #### [facility] [address] [place], [address] Potassium [Moles/Vol] 3.9 mmol/L Normal 3.3-5.1 [facility] Comment on above: Performed By: #### L 501.2450, L500.4050, L503.6005, L100.0100 #### [facility] [address] [place], [address] Sodium [Moles/Vol] 133 mmol/L Normal 133-145 [facility] Comment on above: Performed By: #### L 501.2450, L500.4050, L503.6005, L100.0100 #### [facility] [address] [place], [address] T PROT 8.2 g/dL Normal 5.9-8.4 [facility] Comment on above: Performed By: #### L 501.2450, L500.4050, L503.6005, L100.0100 #### [facility] [address] [place], [address] Urea nitrogen [Mass/Vol] 23 mg/dL High 4-19 [facility] Comment on above: Performed By: #### L 501.2450, L500.4050, L503.6005, L100.0100 #### [facility] [address] [place], [address] Emergency Department Summary on 06-11-2024 Emergency Department Summary [facility] Medical Records Department [address] [place] [address] Emergency Department Summary 06/11/24 MR#: [id number] Acct: [id number] Name: ESTEBAN WOODS Rep #: [id number] : 1935 88 From: Bob Liu DO PCP: Dr. Kodak Harding MD Status:ADM IN Location: ICU ICU05-1 HPI History of Present Illness Chief Complaint: Neuro S/Sx [facility] Medical History (Updated 06/11/24 @ [...] others: The patient's son Consults: Neurosurgery at [facility] Emergency is Dr. Donaldson, Internal Medicine [...] without significant (more content not included)... Normal [facility] Epithelial cells.squamous LM Ql (Urine sed)Ordered By: Bob Liu on 06-11-2024 Epithelial cells.squamous LM.HPF (Urine sed) [#/Area] 0 /[HPF] 5-10 [facility] Glucose Ql (U)Ordered By: Alexandria Liu on 06-11-2024 Urine Glucose (UA) Normal mg/dl Normal [facility] Ketones Test strip Ql (U)Ord ered By: Bob Noe on 06-11-2024 Ketones Ql (U) Negative Negative [facility] L499.0042on 06-11-2024 Trop T Delta 5 Normal [facility] Comment on above: Result Comment: Pote ntial recent NC,CKD,LVH* Consider a third Troponin for Suspected ACS If clinical suspicion for ACS is high, suggest getting a third troponin. Otherwise, stress test or CTCA. Performed By: #### L 500.2500, L100.0100 #### [facility] [address] [place], [address] Trop T High Sen 59 ng/L Invalid Interpretation Code <=14 [facility] Comment on above: Result Comment: Crit ical Result(s) Called at: by ANA DECKER??Results read back by same. Performed By: #### L 500.2500, L100.0100 #### [facility] [address] [place], [address] L499.0043on 06-11-2024 Trop T Delta 3 Normal [facility] Comment on above: Result Comment: Down stream testing and, if negative, consider other etiologies for elevated troponin. Performed By: #### L 499.0043 #### [facility] [address] [place], [address] Trop T High Sen 61 ng/L Invalid Interpretation Code <=14 [facility] Comment on above: Result Comment: Crit ical Result(s) Called at:2339 by: LAMAR ALCANTAR??Results read back by same. Performed By: #### L 499.0043 #### [facility] [address] [place], [address] L501.4021on 06-11-2024 Trop T High Sen 64 ng/L Invalid Interpretation Code <=14 [facility] Comment on above: Result Comment: Crit ical Result(s) Called at: by ANA CERVANTES (ED)??Results read back by same. Performed By: #### L 500.2500, L100.0100 #### [facility] [address] [place], [address] Lactic Acidon 06-11-2024 Lactate [Moles/Vol] 3.1 mmol/L Invalid Interpretation Code 0.0-2.0 [facility] Comment on above: Order Comment: Y Result Comment: Crit ical Result(s) Called at: by ANA MISHRA (ED)??Results read back by same. Performed By: #### L 501.2450, L500.4050, L503.6005, L100.0100 #### [facility] [address] [place], [address] Lactic acid measurementOrder ed By: Bob Liu on 06-11-2024 Lactate [Moles/Vol] 3.1 mmol/L High 0.0-2.[address] [facility] Comment on above: Critical Result(s) C alled at: by ANA [facility] (ED) Results read back by same. Lipaseon 06-11-2024 Lipase [Catalytic activity/Vol] 20 U/L Normal 13-75 [facility] Comment on above: Result Comment: Plea note: LIPASE revised reference range effective 22. New Lipase methodology. Expected to produce lower values than the previous assay method. NEW Reference Range: 13 - 75 U/L Performed By: #### L 501.2450, L500.4050, L503.6005, L100.0100 #### [facility] [address] [place], [address] Lipase measurementOrdered By : Bob Liu on 06-11-2024 Lipase [Catalytic activity/Vol] 20 U/L 13-75 [facility] Comment on above: Please note:LIPASE r evised reference range effective 22. New Lipase methodology. Expected to produce lower values than the previous assay method. NEW Reference Range: 13 - 75 U/L Microscopic analysis of urin e for red blood cells (RBC)Ordered By: Bob Liu on 06-11-2024 Urine RBC 0 SEEN /hpf 0-5 [facility] Mucus LM Ql (Urine sed)Order ed By: Bob Liu on 06-11-2024 Mucus Ql (Urine sed) 0 SEEN /hpf [facility] Nitrite Test strip Ql (U)Ord ered By: Bob Liu on 06-11-2024 Nitrite Ql (U) Negative Negative [facility] No Panel InformationOrdered By: Bob Liu on 06-11-2024 Troponin T Hi Sensitivity 4Hr Delta 3 [facility] Comment on above: Downstream testing a nd, if negative, consider other etiologies for elevated troponin. Troponin T Hi Sensitivity 2Hr Delta 5 [facility] Comment on above: Potential recent NC, CKD,LVH* Consider a third Troponin for Suspected ACSIf clinical suspicion for ACS is high, suggest getting a third troponin. Otherwise, stress test or CTCA. Troponin T High Sensitivity 64 ng/L High <14 [facility] Comment on above: Critical Result(s) C alled at: by ANA CERVANTES (ED) Results read back by same. Protein Test strip Ql (U)Ord ered By: Bob Liu on 06-11-2024 Protein Ql (U) 100 mg/dl High Negative [facility] Troponin T.cardiac High sens itivity method [Mass/Vol]Ordered By: Bob Liu on 06-11-2024 Troponin T High Sensitivity 4 Hour 61 ng/L High <14 [facility] Comment on above: Critical Result(s) C alled at:2339 by: LAMAR ALCANTAR Results read back by same. Troponin T High Sensitivity 2 Hour 59 ng/L High <14 [facility] Comment on above: Critical Result(s) C alled at: by ANA DECKER Results read back by same. Urinalysis, Completeon 06-11 AMORPHOUS 1+ Normal [facility] Comment on above: Order Comment: CLEAN CATCH Performed By: #### L 400.0001 #### [facility] [address] [place], [place], [address] BACTERIA 4+ /hpf Normal None Seen [facility] Comment on above: Order Comment: CLEAN CATCH Performed By: #### L 400.0001 #### [facility] [address] [place], [address] RBC 0 SEEN Normal 0-5 [facility] Comment on above: Order Comment: CLEAN CATCH Performed By: #### L 400.0001 #### [facility] [address] [place], [address] WBC 0-5 SEEN Normal 0-5 [facility] Comment on above: Order Comment: CLEAN CATCH Performed By: #### L 400.0001 #### [facility] [address] [place], [address] EPI,SQUAMOUS 0 SEEN Normal 5-10 [facility] Comment on above: Order Comment: CLEAN CATCH Performed By: #### L 400.0001 #### [facility] [address] [place], [address] Mucus Ql (Urine sed) 0 SEEN Normal [facility] Comment on above: Order Comment: CLEAN CATCH Performed By: #### L 400.0001 #### [facility] [address] [place], [address] Urine blood detectionOrdered By: Bob Liu on 06-11-2024 Urine Occult Blood 25 /ul High Negative [facility] Urine clarityOrdered By: Candy Liu on 06-11-2024 Clarity (U) Cloudy Clear [facility] Urine color determinationOrd ered By: Bob Liu on 06-11-2024 Color (U) Yellow Yellow [facility] Urine cultureOrdered By: Candy Liu on 06-11-2024 Bacteria identified Cx Nom (U) Presumptive E. coli Abnormal [facility] Bacteria identified Cx Nom (U) Aerococcus sanguinicola Abnormal [facility] Urine leukocyte esterase det ection by dipstickOrdered By: Bob Liu on 06-11-2024 Leukocyte esterase Test strip Ql (U) 25 /ul High Negative [facility] Urine pHOrdered By: Bob radford on 06-11-2024 pH (U) 6.5 [pH] 5.0 - 8.0 [facility] Urine sediment bacteria coun t by microscopy (number/high power field)Ordered By: Bob Liu on 06-11-2024 Bacteria LM.HPF (Urine sed) [#/Area] 4 /[HPF] None Seen [facility] Urine specific gravity measu rementOrdered By: Bob Liu on 06-11-2024 Specific gravity (U) [Rel density] 1.015 1.002-1.030 [facility] Urobilinogen Ql (U)Ordered B y: Bob Liu on 06-11-2024 Urobilinogen (U) [Mass/Vol] 8 mg/dL High Normal [facility] White blood cell countOrdere d By: Bob Liu on 06-11-2024 Urine WBC 0-5 SEEN /hpf 0-5 [facility] CNOVon 03-19-2024 [facility] Office Visit ([place]) ESTEBAN WOODS ([id number]) 1935 F T Date Time Provider Department [...] Would like paper copy of refill medications. Gbiran Lester LPN March 19, 2024 1:52 PM [...] Take 81 mg by mouth once daily. en-xb-LN-vit [id number]-[id number]-coQ10 (DAILY MULTIVITAMIN) 200-100-500 mcg cap Take 1 [...] present m (more content not included)... Normal [facility] CBC W Auto Differential pane l (Bld)on 10-31-2023 Basophils (Bld) [#/Vol] 0.06 10*3/uL Normal <0.[address] [facility] Comment on above: Order Comment: Speci men Type: BLOOD SPECIMEN Ordering Facility: [facility] Address: [address] [place] [address] Performed By: #### 5 7021-8 #### [facility] CLIA [id number] [address] [place] [address] [place] Basophils/100 WBC (Bld) 0.6 % Normal [facility] Comment on above: Order Comment: Speci men Type: BLOOD SPECIMEN Ordering Facility: [facility] Address: [address] [place] [address] Performed By: #### 5 7021-8 #### [facility] CLIA [id number] [address] [place] [address] [place] Differential cell count method Nom (Bld) Auto Normal [facility] Comment on above: Order Comment: Speci men Type: BLOOD SPECIMEN Ordering Facility: [facility] Address: [address] [place] [address] Performed By: #### 5 7021-8 #### [facility] CLIA [id number] [address] [place] [address] [place] Eosinophils (Bld) [#/Vol] 0.13 10*3/uL Normal <0.[address] [facility] Comment on above: Order Comment: Speci men Type: BLOOD SPECIMEN Ordering Facility: [facility] Address: [address] [place] [address] Performed By: #### 5 7021-8 #### [facility] CLIA [id number] [address] [place] [address] [place] Eosinophils/100 WBC (Bld) 1.3 % Normal [facility] Comment on above: Order Comment: Speci men Type: BLOOD SPECIMEN Ordering Facility: [facility] Address: [address] [place] [address] Performed By: #### 5 7021-8 #### [facility] CLIA [id number] [address] [place] [address] [place] Erythrocyte distribution width (RBC) [Ratio] 12.7 % Normal 11.5-15.[address] [facility] Comment on above: Order Comment: Speci men Type: BLOOD SPECIMEN Ordering Facility: [facility] Address: [address] [place] [address] Performed By: #### 5 7021-8 #### [facility] CLIA [id number] [address] [place] [address] [place] Hematocrit (Bld) [Volume fraction] 39.6 % Normal 36.0-46.[address] [facility] Comment on above: Order Comment: Speci men Type: BLOOD SPECIMEN Ordering Facility: [facility] Address: [address] [place] [address] Performed By: #### 5 7021-8 #### [facility] CLIA [id number] [address] [place] [address] [place] Hemoglobin (Bld) [Mass/Vol] 13.3 g/dL Normal 11.5-15.[address] [facility] Comment on above: Order Comment: Speci men Type: BLOOD SPECIMEN Ordering Facility: [facility] Address: [address] [place] [address] Performed By: #### 5 7021-8 #### [facility] CLIA [id number] [address] [place] [address] [place] Immature granulocytes (Bld) [#/Vol] 0.04 10*3/uL Normal <0.[address] [facility] Comment on above: Order Comment: Speci men Type: BLOOD SPECIMEN Ordering Facility: [facility] Address: [address] [place] [address] Performed By: #### 5 7021-8 #### [facility] CLIA [id number] [address] [place] [address] [place] Immature granulocytes/100 WBC (Bld) 0.4 % Normal [facility] Comment on above: Order Comment: Speci men Type: BLOOD SPECIMEN Ordering Facility: [facility] Address: [address] [place] [address] Performed By: #### 5 7021-8 #### [facility] CLIA [id number] [address] [place] [address] [place] Lymphocytes (Bld) [#/Vol] 2.15 10*3/uL Normal 1.00-4.[address] [facility] Comment on above: Order Comment: Speci men Type: BLOOD SPECIMEN Ordering Facility: [facility] Address: [address] [place] [address] Performed By: #### 5 7021-8 #### [facility] CLIA [id number] [address] [place] [address] [place] Lymphocytes/100 WBC (Bld) 20.8 % Normal [facility] Comment on above: Order Comment: Speci men Type: BLOOD SPECIMEN Ordering Facility: [facility] Address: [address] [place] [address] Performed By: #### 5 7021-8 #### [facility] CLIA [id number] [address] [place] [address] [place] MCH (RBC) [Entitic mass] 32.0 pg Normal 26.0-34.[address] [facility] Comment on above: Order Comment: Speci men Type: BLOOD SPECIMEN Ordering Facility: [facility] Address: [address] [place] [address] Performed By: #### 5 7021-8 #### [facility] CLIA [id number] [address] [place] [address] [place] MCHC (RBC) [Mass/Vol] 33.6 g/dL Normal 30.5-36.0 [facility] Comment on above: Order Comment: Speci men Type: BLOOD SPECIMEN Ordering Facility: [facility] Address: [address] [place] [address] Performed By: #### 5 7021-8 #### [facility] CLIA [id number] [address] [place] [address] [place] MCV (RBC) [Entitic vol] 95.4 fL Normal 80.0-100.0 [facility] Comment on above: Order Comment: Speci men Type: BLOOD SPECIMEN Ordering Facility: [facility] Address: [address] [place] [address] Performed By: #### 5 7021-8 #### [facility] CLIA [id number] [address] [place] [address] [place] Monocytes (Bld) [#/Vol] 0.75 10*3/uL Normal <0.[address] [facility] Comment on above: Order Comment: Speci men Type: BLOOD SPECIMEN Ordering Facility: [facility] Address: [address] [place] [address] Performed By: #### 5 7021-8 #### [facility] CLIA [id number] [address] [place] [address] [place] Monocytes/100 WBC (Bld) 7.3 % Normal [facility] Comment on above: Order Comment: Speci men Type: BLOOD SPECIMEN Ordering Facility: [facility] Address: [address] [place] [address] Performed By: #### 5 7021-8 #### [facility] CLIA [id number] [address] [place] [address] [place] Neutrophils (Bld) [#/Vol] 7.19 10*3/uL Normal 1.45-7.[address] [facility] Comment on above: Order Comment: Speci men Type: BLOOD SPECIMEN Ordering Facility: [facility] Address: [address] [place] [address] Performed By: #### 5 7021-8 #### [facility] CLIA [id number] [address] [place] [address] [place] Neutrophils/100 WBC (Bld) 69.6 % Normal [facility] Comment on above: Order Comment: Speci men Type: BLOOD SPECIMEN Ordering Facility: [facility] Address: [address] [place] [address] Performed By: #### 5 7021-8 #### [facility] CLIA [id number] [address] [place] [address] [place] Nucleated RBC (Bld) [#/Vol] 10*3/uL Normal <0.[address] [facility] Comment on above: Order Comment: Speci men Type: BLOOD SPECIMEN Ordering Facility: [facility] Address: [address] [place] [address] Performed By: #### 5 7021-8 #### [facility] CLIA [id number] [address] [place] [address] [place] Nucleated RBC/100 WBC (Bld) [Ratio] 0.0 /100 WBC Normal [facility] Comment on above: Order Comment: Speci men Type: BLOOD SPECIMEN Ordering Facility: [facility] Address: [address] [place] [address] Performed By: #### 5 7021-8 #### [facility] CLIA [id number] [address] [place] [address] [place] Platelet mean volume (Bld) [Entitic vol] 9.2 fL Normal 9.0-12.[address] [facility] Comment on above: Order Comment: Speci men Type: BLOOD SPECIMEN Ordering Facility: [facility] Address: [address] [place] [address] Performed By: #### 5 7021-8 #### [facility] CLIA [id number] [address] [place] [address] [place] Platelets (Bld) [#/Vol] 229 10*3/uL Normal 150-[address] [facility] Comment on above: Order Comment: Speci men Type: BLOOD SPECIMEN Ordering Facility: [facility] Address: [address] [place] [address] Performed By: #### 5 7021-8 #### [facility] CLIA [id number] [address] [place] [address] [place] RBC (Bld) [#/Vol] 4.15 10*6/uL Normal 3.90-5.20 [facility] Comment on above: Order Comment: Speci men Type: BLOOD SPECIMEN Ordering Facility: [facility] Address: [address] [place] [address] Performed By: #### 5 7021-8 #### [facility] CLIA [id number] [address] [place] [address] [place] WBC (Bld) [#/Vol] 10.32 10*3/uL Normal 3.70-11.00 [facility] Comment on above: Order Comment: Speci men Type: BLOOD SPECIMEN Ordering Facility: [facility] Address: [address] [place] [address] Performed By: #### 5 7021-8 #### [facility] CLIA [id number] [address] [place] [address] [place] Comprehensive metabolic 2000 panelon 10-31-2023 Albumin [Mass/Vol] 4.0 g/dL Normal 3.9-4.9 [facility] Comment on above: Order Comment: Speci men Type: BLOOD SPECIMEN Ordering Facility: [facility] Address: [address] [place] [address] Performed By: #### 2 4323-8 #### [facility] CLIA [id number] [address] [place] [address] [place] ALP [Catalytic activity/Vol] 73 U/L Normal 34-[address] [facility] Comment on above: Order Comment: Speci men Type: BLOOD SPECIMEN Ordering Facility: [facility] Address: [address] [place] [address] Performed By: #### 2 4323-8 #### [facility] CLIA [id number] [address] [place] [address] [place] ALT [Catalytic activity/Vol] 12 U/L Normal 7-[address] [facility] Comment on above: Order Comment: Speci men Type: BLOOD SPECIMEN Ordering Facility: [facility] Address: [address] [place] [address] Performed By: #### 2 4323-8 #### [facility] CLIA [id number] [address] [place] [address] [place] Anion gap [Moles/Vol] 10 mmol/L Normal 8-15 [facility] Comment on above: Order Comment: Speci men Type: BLOOD SPECIMEN Ordering Facility: [facility] Address: [address] [place] [address] Performed By: #### 2 4323-8 #### [facility] CLIA [id number] [address] [place] [address] [place] AST [Catalytic activity/Vol] 17 U/L Normal 13-[address] [facility] Comment on above: Order Comment: Speci men Type: BLOOD SPECIMEN Ordering Facility: [facility] Address: [address] [place] [address] Performed By: #### 2 4323-8 #### [facility] CLIA [id number] [address] [place] [address] [place] Bilirubin [Mass/Vol] 1.2 mg/dL Normal 0.2-1.3 [facility] Comment on above: Order Comment: Speci men Type: BLOOD SPECIMEN Ordering Facility: [facility] Address: [address] [place] [address] Performed By: #### 2 4323-8 #### [facility] [id number] [address] [place] [address] [place] Calcium [Mass/Vol] 10.3 mg/dL High 8.5-10.2 [facility] Comment on above: Order Comment: Speci men Type: BLOOD SPECIMEN Ordering Facility: [facility] Address: [address] [place] [address] Performed By: #### 2 4323-8 #### [facility] CLIA [id number] [address] [place] [address] [place] Chloride [Moles/Vol] 99 mmol/L Normal 98-107 [facility] Comment on above: Order Comment: Speci men Type: BLOOD SPECIMEN Ordering Facility: [facility] Address: [address] [place] [address] Performed By: #### 2 4323-8 #### [facility] CLIA [id number] [address] [place] [address] [place] CO2 [Moles/Vol] 25 mmol/L Normal 22-[address] [facility] Comment on above: Order Comment: Speci men Type: BLOOD SPECIMEN Ordering Facility: [facility] Address: [address] [place] [address] Performed By: #### 2 4323-8 #### [facility] CLIA [id number] [address] [place] [address] [place] Creatinine [Mass/Vol] 0.95 mg/dL Normal 0.58-0.96 [facility] Comment on above: Order Comment: Speci men Type: BLOOD SPECIMEN Ordering Facility: [facility] Address: [address] [place] [address] Performed By: #### 2 4323-8 #### [id number] [address] [place] [address] [place] [facility] Creatinine and Glomerular filtration rate.predicted panel (S/P/Bld) 58 mL/min/1.73m??? Low >=[address] [facility] Comment on above: Order Comment: Speci men Type: BLOOD SPECIMEN Ordering Facility: [facility] Address: [address] [place] [address] Result Comment: Dana mated Glomerular Filtration Rate [...] By: #### 2 4323-8 #### [facility] [id number] [address] [place] [address] [place] Glucose [Mass/Vol] 90 mg/dL Normal 74-99 [facility] Comment on above: Order Comment: Speci men Type: BLOOD SPECIMEN Ordering Facility: [facility] Address: [address] [place], [place] [id number] Result Comment: The [place] Diabetes [employer] (ADA) provides guidance for [...] Standards of Medical Care in Diabetes 2016, [place] [employer]. Diabetes Care. 2016.39(Suppl 1). Performed By: #### 2 4323-8 #### [facility] [id number] [address] [place] [address] [place] Potassium [Moles/Vol] 3.9 mmol/L Normal 3.7-5.1 [facility] Comment on above: Order Comment: Aichai men Type: BLOOD SPECIMEN Ordering Facility: [facility] Address: [address] [place] [address] Performed By: #### 2 4323-8 #### [facility] [id number] [address] [place] [address] [place] Protein [Mass/Vol] 7.1 g/dL Normal 6.3-8.0 [facility] Comment on above: Order Comment: Speci men Type: BLOOD SPECIMEN Ordering Facility: [facility] Address: [address] [place] [address] Performed By: #### 2 4323-8 #### [facility] CLIA [id number] [address] [place] [address] [place] Sodium [Moles/Vol] 134 mmol/L Low 136-144 [facility] Comment on above: Order Comment: Speci men Type: BLOOD SPECIMEN Ordering Facility: [facility] Address: [address] [place] [address] Performed By: #### 2 4323-8 #### [facility] [id number] [address] [place] [address] [place] Urea nitrogen [Mass/Vol] 31 mg/dL High 7-[address] [facility] Comment on above: Order Comment: Speci men Type: BLOOD SPECIMEN Ordering Facility: [facility] Address: [address] [place] [address] Performed By: #### 2 4323-8 #### [facility] CLIA [id number] [address] [place] [address] [place] Lipid 1996 panelon 4 Cholesterol [Mass/Vol] 97 mg/dL Normal <200 [facility] Comment on above: Order Comment: Speci men Type: BLOOD SPECIMEN Ordering Facility: [facility] Address: [address] [place] [address] Result Comment: <200 mg/dL, Desirable 200-239 mg/dL, Borderline high >239 mg/dL, High Performed By: #### 2 4331-1 #### [facility] CLIA [id number] [address] [place] [address] [place] [facility] CLIA [id number] [address] [place] [address] [place] #### 3016-3 #### [facility] CLIA [id number] [address] [place] [address] [place] Cholesterol in HDL [Mass/Vol] 48 mg/dL Normal >[address] [facility] Comment on above: Order Comment: Jazmin moya Type: BLOOD SPECIMEN Ordering Facility: [facility] Address: [address] [place] [address] Result Comment: 40-5 9 mg/dL, Acceptable >59 mg/dL, High: Negative risk factor for coronary heart disease <40 mg/dL, Low: Positive risk factor for coronary heart disease Performed By: #### 2 4331-1 #### [facility] CLIA [id number] [address] [place] [address] [place] [facility] CLIA [id number] [address] [place] [address] [place] #### 3016-3 #### [facility] CLIA [id number] [address] [place] [address] [place] Cholesterol in LDL [Mass/Vol] 36 mg/dL Normal <[address] [facility] Comment on above: Order Comment: Jazmin moya Type: BLOOD SPECIMEN Ordering Facility: [facility] Address: [address] [place] [address] Result Comment: <100 mg/dL, Optimal 100-129 mg/dL, Near optimal/above optimal 130-159 mg/dL, Borderline high 160-189 mg/dL, High >189 mg/dL, Very high Secondary prevention optimal LDL Cholesterol levels are recommended to be < 70 mg/dL Performed By: #### 2 4331-1 #### [facility] CLIA [id number] [address] [place] [address] [place] [facility] CLIA [id number] [address] [place] [address] [place] #### 3016-3 #### [facility] CLIA [id number] [address] [place] [address] [place] Cholesterol in LDL/Cholesterol in HDL [Mass ratio] 0.75 {ratio} Normal <2.[address] [facility] Comment on above: Order Comment: Speci men Type: BLOOD SPECIMEN Ordering Facility: [facility] Address: [address] [place] [address] Result Comment: Roxie paz: 1. National Cholesterol Education Program ATP III Guideline At-A-Glance Quick Desk Reference: National Heart, Lung, and Blood [place]. National Institutes of Health. 2001: NIH Publication No. 01-3305. 2. An International Atherosclerosis Society position paper: global recommendations for the management of dyslipidemia: executive summary, Atherosclerosis. 2014: 232(2):410-413. Performed By: #### 2 4331-1 #### [facility] CLIA [id number] [address] [place] [address] [place] [facility] [id number] [address] [place] [address] [place] #### 3016-3 #### [facility] CLIA [id number] [address] [place] [address] [place] Cholesterol in VLDL [Mass/Vol] 13 mg/dL Normal <[address] [facility] Comment on above: Order Comment: Speci men Type: BLOOD SPECIMEN Ordering Facility: [facility] Address: [address] [place] [address] Performed By: #### 2 4331-1 #### [facility] CLIA [id number] [address] [place] [address] [place] [facility] CLIA [id number] [address] [place] [address] [place] #### 3016-3 #### [facility] CLIA [id number] [address] [place] [address] [place] Cholesterol non HDL [Mass/Vol] 49 mg/dL Normal <[address] [facility] Comment on above: Order Comment: Speci men Type: BLOOD SPECIMEN Ordering Facility: [facility] Address: [address] [place] [address] Result Comment: <130 mg/dL, Optimal 130-159 mg/dL, Near optimal/above optimal 160-189 mg/dL, Borderline high 190-219 mg/dL, High >219 mg/dL, Very high Secondary prevention optimal non HDL Cholesterol levels are recommended to be <100 mg/dL Performed By: #### 2 4331-1 #### [facility] CLIA [id number] [address] [place] [address] [place] [facility] [id number] [address] [place] [address] [place] #### 3016-3 #### [facility] CLIA [id number] [address] [place] [address] [place] Cholesterol.total/Choles terol in HDL [Mass ratio] 2.02 {ratio} Normal <5.[address] [facility] Comment on above: Order Comment: Speci men Type: BLOOD SPECIMEN Ordering Facility: [facility] Address: [address] [place] [address] Performed By: #### 2 4331-1 #### [facility] CLIA [id number] [address] [place] [address] [place] [facility] [id number] [address] [place] [address] [place] #### 3016-3 #### [facility] CLIA [id number] [address] [place] [address] [place] FASTING TIME 12 hrs Normal [facility] Comment on above: Order Comment: Speci men Type: BLOOD SPECIMEN Ordering Facility: [facility] Address: [address] [place], [place] [address] Performed By: #### 2 4331-1 #### [facility] CLIA [id number] [address] [place] [address] [place] [facility] CLIA [id number] [address] [place] [address] [place] #### 3016-3 #### [facility] CLIA [id number] [address] [place] [address] [place] Triglyceride [Mass/Vol] 63 mg/dL Normal <150 [facility] Comment on above: Order Comment: Speci men Type: BLOOD SPECIMEN Ordering Facility: [facility] Address: [address] [place] [address] Result Comment: <150 mg/dL, Normal 150-199 mg/dL, Borderline high 200-499 mg/dL, High >499 mg/dL, Very high Performed By: #### 2 4331-1 #### [facility] CLIA [id number] [address] [place] [address] [place] [facility] CLIA [id number] [address] [place] [address] [place] #### 3016-3 #### [facility] CLIA [id number] [address] [place] [address] [place] TSH SerPl-aCncon 10-31-2023 TSH Qn 3.530 m[IU]/L Normal 0.270-4.[address] [facility] Comment on above: Order Comment: Speci men Type: BLOOD SPECIMEN Ordering Facility: [facility] Address: [address] [place] [address] Performed By: #### 2 4331-1 #### [facility] CLIA [id number] [address] [place] [address] [place] [facility] CLIA [id number] [address] [place] [address] [place] #### 3016-3 #### [facility] CLIA [id number] [address] [place], [place] [address] [place] [id number] [place] Absolute lymphocyte counton 09-21-2021 Lymphocytes Auto (Unsp spec) [#/Vol] 2.80 10*3/uL 0.83-4.51 [facility] Work Phone: Basophil percentageon 2021 Basophils/100 WBC (Bld) 0.7 % 0-1 [facility] Work Phone: Bilirubin [Mass/Vol] 0.70 mg/dL 0.20-1.00 [facility] Work Phone: Comment on above: For patients on eltr ombopag therapy, use of Dimension Cummings TBIL is not recommended. Chloride [Moles/Vol] 105 mmol/L 98-107 [facility] Work Phone: Cholesterol [Mass/Vol] 114 mg/dL <200 [facility] Work Phone: Comment on above: <200 mg/dL Desirable 200-240 mg/dL Borderline >240 mg/dL High Risk Eosinophils/100 WBC (Bld) 2.3 % 0-5 [facility] Work Phone: Glucose [Mass/Vol] 95 mg/dL 74-106 [facility] Work Phone: Neutrophils (Bld) [#/Vol] 6.1 10*3/uL 2.0-7.7 [facility] Work Phone: Neutrophils/100 WBC (Bld) 61.5 % 47-70 [facility] Work Phone: Potassium [Moles/Vol] 3.9 mmol/L 3.5-5.1 [facility] Work Phone: Protein [Mass/Vol] 7.7 g/dL 6.4-8.2 [facility] Work Phone: Sodium [Moles/Vol] 137 mmol/L 136-145 [facility] Work Phone: Triglyceride [Mass/Vol] 55 mg/dL <199 [facility] Work Phone: Comment on above: The drugs N-Acetylcy steine and Metamizole may falsely depress this assay.Serum Triglycerides Reference Interval Normal <150 mg/dL Borderline high 150 - 199 mg/dL High 200 - 499 mg/dL Very High > or = 500 mg/dL WBC (Bld) [#/Vol] 9.9 10*3/uL 4.4-11.0 [facility] Work Phone: Blood erythrocytes count (nu mber/volume)on 09-21-2021 RBC (Bld) [#/Vol] 4.42 10*6/uL 4.2-5.[address] [facility] Work Phone: [phone] Blood hemoglobin measurement (mass/volume)on 09-21-2021 Hemoglobin (Bld) [Mass/Vol] 13.9 g/dL 12.0-15.0 [facility] Work Phone: Blood lymphocytes/100 leukoc yteson 09-21-2021 Lymphocytes/100 WBC (Bld) 28.2 % 19-41 [facility] Work Phone: Blood monocytes/100 leukocyt eson 09-21-2021 Monocytes/100 WBC (Bld) 6.7 % 0-10 [facility] Work Phone: Blood platelet mean volumeon 09-21-2021 Platelet mean volume (Bld) [Entitic vol] 9.8 fL 6.2-12.0 [facility] Work Phone: [phone] Determination of erythrocyte mean corpuscular volume (MCV)on 09-21-2021 MCV (RBC) [Entitic vol] 98.2 fL 81-99 [facility] Work Phone: [phone] Hematocrit Auto (Bld) [Volum e fraction]on 09-21-2021 Hematocrit (Bld) [Volume fraction] 43.4 % 37-47 [facility] Work Phone: Laboratory - Chemistry and C hemistry - challengeon 09-21-2021 ALP [Catalytic activity/Vol] 71 U/L 45-117 [facility] Work Phone: [phone] [Catalytic activity/Vol] 18 U/L 13-56 [facility] Work Phone: [phone] CO2 [Moles/Vol] 27.0 mmol/L 21.0-32.0 [facility] Work Phone: [phone] Globulin (S) [Mass/Vol] 4.3 g/dL 2.2-4.2 [facility] Work Phone: [phone] Urea nitrogen/Creatinine [Mass ratio] 26.7 mg/mg 10-20 [facility] Work Phone: [phone] Laboratory - Hematology and Cell countson 09-21-2021 Erythrocyte distribution width (RBC) [Entitic vol] 46.2 fL 35.1-43.9 [facility] Work Phone: [phone] Erythrocyte distribution width (RBC) [Ratio] 12.8 % 11.6-14.6 [facility] Work Phone: [phone] Immature granulocytes/100 WBC (Bld) 0.600 % 0.0-0.9 [facility] Work Phone: [phone] Comment on above: IG% - Immature Granu locytes (promyelocytes, myelocytes and metamyelocytes) > 1% indicates that a LEFT SHIFT is Present. MCH (RBC) [Entitic mass] 31.4 pg 27.0-32.0 [facility] Work Phone: [phone] Nucleated RBC/100 WBC (Bld) [Ratio] 0 % 0-5 [facility] Work Phone: [phone] MCHC Auto (RBC) [Mass/Vol]on 09-21-2021 MCHC (RBC) [Mass/Vol] 32.0 g/dL 32-36 [facility] Work Phone: [phone] Panel Informationon 09-21 Estimated GFR (MDRD) Amer 67 mL/min >60 [facility] Work Phone: [phone] Comment on above: GFR Calc Estimated GFR (MDRD) Non-Af Amer 55 mL/min >60 [facility] Work Phone: [phone] Comment on above: Non- GFR Calc Thyroid Stimulating Hormone (TSH) 2.45 uIU/mL 0.358-3.74 [facility] Work Phone: Platelets bldon 09-21-2021 Platelets (Bld) [#/Vol] 248 10*3/uL 150-450 [facility] Work Phone: Serum or plasma albumin sarbjit urement (mass/volume)on 09-21-2021 Albumin [Mass/Vol] 3.4 g/dL 3.2-5.0 [facility] Work Phone: Serum or plasma albumin/glob ulin mass ratioon 09-21-2021 Albumin/Globulin [Mass ratio] 0.8 {ratio} 0.9-2.4 [facility] Work Phone: Serum or plasma calcium sarbjit urement (mass/volume)on 09-21-2021 Calcium [Mass/Vol] 10.1 mg/dL 8.5-10.1 [facility] Work Phone: Serum or plasma cholesterol in HDL measurement (mass/volume)on 09-21-2021 Cholesterol in HDL [Mass/Vol] 55 mg/dL >40 [facility] Work Phone: Comment on above: The drugs N-Acetylcy steine and Metamizole may falsely depress this assay. Reference Range HDL <40 mg/dL Low HDL Cholesterol HDL >or= 60 mg/dL High HDL Cholesterol Serum or plasma cholesterol in VLDL measurement (mass/volume)on 09-21-2021 Cholesterol in VLDL [Mass/Vol] 11 mg/dL 5-40 [facility] Work Phone: Serum or plasma creatinine m easurement (mass/volume)on 09-21-2021 Creatinine [Mass/Vol] 1.01 mg/dL 0.55-1.02 [facility] Work Phone: Comment on above: The validity of the calculated GFR & GFRAA in patients over 70 years has not been determined. Clinical correlation is essential. Serum or plasma low density lipoprotein (LDL) cholesterol measurement (mass/volume)on 09-21-2021 Cholesterol in LDL [Mass/Vol] 48 mg/dL 0-130 [facility] Work Phone: Serum or plasma urea nitroge n measurement (mass/volume)on 09-21-2021 Urea nitrogen [Mass/Vol] 27 mg/dL 7-18 [facility] Work Phone: Thin prep Papanicolaou smear with manual screeningon 09-21-2021 Thin prep Papanicolaou smear with manual screening 18 U/L 15-37 [facility] Work Phone: Thin prep Papanicolaou smear with manual screening 5 5-15 [facility] Work Phone: TSHon 03-06-2018 Thyrotropin Qn 1.600 UIU/ML Normal 0.358-3.740 [facility] Comment on above: Result Comment: 3rd generation ultra sensitive TSH Performed By: #### L [id number] ####[facility] [id number] [place], [place] [address]Id# [phone] Vital Signs Date Time Vital Sign Value Performing Clinician Facility 11-05-2024 07:15-0400 Body height 157.[address] Kodak Harding MD Work Phone: [facility] 11-05-2024 07:15-0400 Body mass index (BMI) [Ratio] 30.7 kg/m2 Dr. Kodak Harding MD Work Phone: [facility] 11-05-2024 07:15-0400 Body temperature 97.7 [degF] Dr. Kodak Harding MD Work Phone: [facility] 11-05-2024 07:15-0400 Body weight 76.[address] Kodak Harding MD Work Phone: [facility] 11-05-2024 07:15-0400 Diastolic blood pressure 82 mm[Hg] Dr. Kodak Harding MD Work Phone: [facility] 11-05-2024 07:15-0400 Heart rate 73 /min Dr. Kodak Harding MD Work Phone: [facility] 11-05-2024 07:15-0400 Respiratory rate 18 /min Dr. Kodak Harding MD Work Phone: [facility] 11-05-2024 07:15-0400 SaO2% (BldA) [Mass fraction] 97 % Dr. Kodak Harding MD Work Phone: [facility] 11-05-2024 07:15-0400 Systolic blood pressure 134 mm[Hg] Dr. Kodak Harding MD Work Phone: [facility] 10-22-2024 19:40-0400 Body temperature 98.4 [degF] Dr. Kodak Harding MD Work Phone: [facility] 10-22-2024 19:40-0400 Diastolic blood pressure 98 mm[Hg] Dr. Kodak Harding MD Work Phone: [facility] 10-22-2024 19:40-0400 Heart rate 81 /min Dr. Kodak Harding MD Work Phone: [facility] 10-22-2024 19:40-0400 Respiratory rate 16 /min Dr. Kodak Harding MD Work Phone: [facility] 10-22-2024 19:40-0400 SaO2% (BldA) [Mass fraction] 93 % Dr. Kodak Harding MD Work Phone: [facility] 10-22-2024 19:40-0400 Systolic blood pressure 149 mm[Hg] Dr. Kodak Harding MD Work Phone: [facility] 10-22-2024 17:47-0400 Body mass index (BMI) [Ratio] 32.5 kg/m2 Dr. Kodak Harding MD Work Phone: [facility] 10-22-2024 17:47-0400 Body weight 80.[address] Kodak Harding MD Work Phone: [facility] 10-22-2024 14:54-0400 Body height 157.[address] Kodak Harding MD Work Phone: [facility] 09-17-2024 13:05-0400 Body height 157.5 cm Kodak Harding MD Work Phone: [facility] 09-17-2024 13:05-0400 Body mass index (BMI) [Ratio] 27.62 kg/m2 Kodak Harding MD Work Phone: [facility] 09-17-2024 13:05-0400 Body temperature 96.91 [degF] Kodak Harding MD Work Phone: [facility] 09-17-2024 13:05-0400 Body weight 68.49 kg Kodak Harding MD Work Phone: [facility] 09-17-2024 13:05-0400 Diastolic blood pressure 76 mm[Hg] Kodak Harding MD Work Phone: [facility] 09-17-2024 13:05-0400 Heart rate 90 /min Kodak Harding MD Work Phone: [facility] 09-17-2024 13:05-0400 Respiratory rate 18 /min Kodak Harding MD Work Phone: [facility] 09-17-2024 13:05-0400 SaO2% (BldA) [Mass fraction] 94 % Kodak Harding MD Work Phone: [facility] 09-17-2024 13:05-0400 Systolic blood pressure 118 mm[Hg] Kodak Harding MD Work Phone: [facility] 07-30-2024 12:58-0400 Body height 157.5 cm Kodak Harding MD Work Phone: [facility] 07-30-2024 12:58-0400 Body mass index (BMI) [Ratio] 28.9 kg/m2 Kodak Harding MD Work Phone: [facility] 07-30-2024 12:58-0400 Body temperature 97.3 [degF] Kodak Harding MD Work Phone: [facility] 07-30-2024 12:58-0400 Body weight 71.67 kg Kodak Harding MD Work Phone: [facility] 07-30-2024 12:58-0400 Diastolic blood pressure 78 mm[Hg] Kodak Harding MD Work Phone: [facility] 07-30-2024 12:58-0400 Heart rate 68 /min Kodak Harding MD Work Phone: [facility] 07-30-2024 12:58-0400 Respiratory rate 20 /min Kodak Harding MD Work Phone: [facility] 07-30-2024 12:58-0400 SaO2% (BldA) [Mass fraction] 94 % Kodak Harding MD Work Phone: [facility] 07-30-2024 12:58-0400 Systolic blood pressure 126 mm[Hg] Kodak Harding MD Work Phone: [facility] 06-27-2024 13:01-0400 Body height 157.5 cm Kodak Harding MD Work Phone: [facility] 06-27-2024 13:01-0400 Body mass index (BMI) [Ratio] 27.98 kg/m2 Kodak Harding MD Work Phone: [facility] 06-27-2024 13:01-0400 Body temperature 96.91 [degF] Kodak Harding MD Work Phone: [facility] 06-27-2024 13:01-0400 Body weight 69.4 kg Kodak Harding MD Work Phone: [facility] 06-27-2024 13:01-0400 Diastolic blood pressure 78 mm[Hg] Kodak Harding MD Work Phone: [facility] 06-27-2024 13:01-0400 Heart rate 105 /min Kodak Harding MD Work Phone: [facility] 06-27-2024 13:01-0400 Respiratory rate 18 /min Kodak Harding MD Work Phone: [facility] 06-27-2024 13:01-0400 SaO2% (BldA) [Mass fraction] 95 % Kodak Harding MD Work Phone: [facility] 06-27-2024 13:01-0400 Systolic blood pressure 122 mm[Hg] Kodak Harding MD Work Phone: [facility] 06-15-2024 13:57-0500 Body height 157.[address] Kodak Harding MD Work Phone: [facility] 06-15-2024 13:57-0500 Body weight 69.[address] Kodak Harding MD Work Phone: [facility] 06-15-2024 09:12-0500 Diastolic blood pressure 71 mm[Hg] Dr. Kodak Harding MD Work Phone: [facility] 06-15-2024 09:12-0500 Heart rate 99 /min Dr. Kodak Harding MD Work Phone: [facility] 06-15-2024 09:12-0500 Systolic blood pressure 135 mm[Hg] Dr. Kodak Harding MD Work Phone: [facility] 06-15-2024 09:00-0500 Body temperature 98.1 [degF] Dr. Kodak Harding MD Work Phone: [facility] 06-15-2024 09:00-0500 Respiratory rate 16 /min Dr. Kodak Harding MD Work Phone: [facility] 06-15-2024 09:00-0500 SaO2% (BldA) [Mass fraction] 95 % Dr. Kodak Harding MD Work Phone: [facility] 06-14-2024 05:04-0500 Body mass index (BMI) [Ratio] 28 kg/m2 Dr. Kodak Harding MD Work Phone: [facility] 06-13-2024 07:10-0500 Inhaled oxygen flow rate 2 L/min Dr. Kodak Harding MD Work Phone: [facility] 03-19-2024 13:49-0500 Body height 157.5 cm Kodak Harding MD Work Phone: [facility] 03-19-2024 13:49-0500 Body mass index (BMI) [Ratio] 28.72 kg/m2 Kodak Harding MD Work Phone: [facility] 03-19-2024 13:49-0500 Body temperature 97.7 [degF] Kodak Harding MD Work Phone: [facility] 03-19-2024 13:49-0500 Body weight 71.22 kg Kodak Harding MD Work Phone: [facility] 03-19-2024 13:49-0500 Diastolic blood pressure 82 mm[Hg] Kodak Harding MD Work Phone: [facility] 03-19-2024 13:49-0500 Heart rate 98 /min Kodak Harding MD Work Phone: [facility] 03-19-2024 13:49-0500 Respiratory rate 20 /min Kodak Harding MD Work Phone: [facility] 03-19-2024 13:49-0500 SaO2% (BldA) [Mass fraction] 98 % Kodak Harding MD Work Phone: [facility] 03-19-2024 13:49-0500 Systolic blood pressure 126 mm[Hg] Kodak Harding MD Work Phone: [facility] 09-26-2023 13:12-0400 Body height 157.5 cm Kodak Harding MD Work Phone: [facility] 09-26-2023 13:12-0400 Body mass index (BMI) [Ratio] 29.45 kg/m2 Kodak Harding MD Work Phone: [facility] 09-26-2023 13:12-0400 Body temperature 97.59 [degF] Kodak Harding MD Work Phone: [facility] 09-26-2023 13:12-0400 Body weight 73.03 kg Kodak Harding MD Work Phone: [facility] 09-26-2023 13:12-0400 Diastolic blood pressure 82 mm[Hg] Kodak Harding MD Work Phone: [facility] 09-26-2023 13:12-0400 Heart rate 64 /min Kodak Harding MD Work Phone: [facility] 09-26-2023 13:12-0400 Respiratory rate 18 /min Kodak Harding MD Work Phone: [facility] 09-26-2023 13:12-0400 SaO2% (BldA) [Mass fraction] 98 % Kodak Harding MD Work Phone: [facility] 09-26-2023 13:12-0400 Systolic blood pressure 128 mm[Hg] Kodak Harding MD Work Phone: [facility] 03-23-2023 13:03-0500 Body height 157.5 cm Kodak Harding MD Work Phone: [facility] 03-23-2023 13:03-0500 Body temperature 97.59 [degF] Kodak Harding MD Work Phone: [facility] 03-23-2023 13:03-0500 Body weight 74.84 kg Kodak Harding MD Work Phone: [facility] 03-23-2023 13:03-0500 Diastolic blood pressure 82 mm[Hg] Kodak Harding MD Work Phone: [facility] 03-23-2023 13:03-0500 Heart rate 72 /min Kodak Harding MD Work Phone: [facility] 03-23-2023 13:03-0500 Respiratory rate 18 /min Kodak Harding MD Work Phone: [facility] 03-23-2023 13:03-0500 SaO2% (BldA) [Mass fraction] 97 % Kodak Harding MD Work Phone: [facility] 03-23-2023 13:03-0500 Systolic blood pressure 136 mm[Hg] Kodak Harding MD Work Phone: [facility] 03-22-2022 13:25-0500 Body height 157.5 cm Kodak Harding MD Work Phone: [facility] 03-22-2022 13:25-0500 Body temperature 96.91 [degF] Kodak Harding MD Work Phone: [facility] 03-22-2022 13:25-0500 Body weight 79.55 kg Kodak Harding MD Work Phone: [facility] 03-22-2022 13:25-0500 Diastolic blood pressure 86 mm[Hg] Kodak Harding MD Work Phone: [facility] 03-22-2022 13:25-0500 Heart rate 64 /min Kodak Harding MD Work Phone: [facility] 03-22-2022 13:25-0500 Respiratory rate 18 /min Kodak Harding MD Work Phone: [facility] 03-22-2022 13:25-0500 SaO2% (BldA) [Mass fraction] 97 % Kodak Harding MD Work Phone: [facility] 03-22-2022 13:25-0500 Systolic blood pressure 138 mm[Hg] Kodak Harding MD Work Phone: [facility] Encounters Encounter Date Encounter Type Care Provider Facility Start: 11-23-2024 [facility] Facility: [facility] Start: 11-21-2024 [facility] Facility: [facility] Start: 11-09-[address] Tamir Cardoso DO -Pulmonary Services/Neurology Work Phone: Start: 11-09-2024 [facility] Facility: [facility] Start: 11-07-2024 End: 11-08-2024 Telephone encounter Kodak Harding MD Work Phone: [facility] Comment on above: Orders Start: 11-05-2024 End: 11-06-2024 Telephone encounter Kodak Harding MD Work Phone: [facility] Comment on above: Patient Update Start: 11-05-2024 End: 11-05-[address] Tamir Cardoso DO -Laboratory Work Phone: Start: 11-05-2024 End: 11-05-2024 ambulatory Tamir Cardoso Facility:[facility] Start: 11-05-2024 End: 11-05-[address] Tamir Cardoso DO -[facility] Work Phone: Start: 11-05-2024 End: 11-05-[address] Koadk Harding MD Work Phone: -[facility] Start: 10-29-2024 End: 10-30-2024 Refill Kodak Harding MD Work Phone: [facility] Comment on above: Refill Request Start: 10-23-2024 End: 10-23-2024 ambulatory Arcelia Weber RN [facility] Start: 10-23-2024 End: 10-23-2024 Follow-up encounter Arcelia Weber RN [facility] Comment on above: Primary Care Coordin ator Ed Follow Up Start: 10-23-2024 End: 10-23-2024 Refill Kodak Harding MD Work Phone: [facility] Comment on above: Refill Request Start: 10-22-2024 End: 10-22-2024 Emergency department patient visit Dr. Kodak Harding MD Work Phone: -Emergency Department Work Phone: Start: 10-22-2024 End: 10-23-2024 Patient encounter procedure [facility] Provider [facility] Start: 10-01-2024 End: 10-01-2024 ambulatory KODAK HARDING Facility:[facility] Start: 09-17-2024 End: 09-17-2024 Patient encounter procedure Kodak Harding MD Work Phone: [facility] Comment on above: Encounter for seda daniel regarding advance directives (Primary Dx); Screening for depression; Encounter for screening examination for other mental health and behavioral disorders; Generalized weakness; Acquired hypothyroidism; Mixed hyperlipidemia; Hypertension, essential; manager terminal (current) use of anticoagulants; Persistent atrial fibrillation (HCC); Screening for deficiency anemia; Primary osteoarthritis involving multiple joints; Medicare annual wellness visit, subsequent Start: 09-17-2024 End: 09-17-2024 ambulatory KODAK GONZALO MEHDI Facility:[id number] Start: 07-30-2024 End: 07-30-2024 Office outpatient visit 15 minutes Kodak Harding MD Work Phone: [facility] Comment on above: Paroxysmal atrial fi brillation (HCC) (Primary Dx); Hypertension, essential; Acquired hypothyroidism; Mixed hyperlipidemia; assisted (current) use of anticoagulants Start: 07-30-2024 End: 07-30-2024 ambulatory KODAK PELAYOORY MEHDI Facility:[id number] Start: 07-05-2024 End: 07-05-2024 Patient Outreach Arcelia Weber RN [facility] Comment on above: Initial phone contac t for Transitional Care Management Start: 06-27-2024 End: 06-27-2024 Transitional care manage srvc 7 day discharge Kodak Harding MD Work Phone: 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); assisted current use of anticoagulant therapy Start: 06-27-2024 End: 06-27-2024 ambulatory KODAK HARDING Facility:[id number] Start: 06-19-2024 End: 06-19-2024 Patient Outreach Arcelia Weber RN [facility] Comment on above: Started Initial phon e contact for Transitional Care Management Start: 06-18-2024 End: 06-18-2024 Patient Outreach Arcelia Weber RN [facility] Comment on above: Started Initial phon e contact for Transitional Care Management Start: 06-15-2024 End: 06-18-2024 Patient encounter procedure [facility] Provider [facility] Start: 06-15-2024 Non-patient / Non-visit Dr. Jovany Ramsey MD -[facility] Work Phone: Start: 06-14-2024 Non-patient / Non-visit Dr. Jovany Ramsey MD -[facility] Work Phone: Start: 06-13-2024 Non-patient / Non-visit Dr. Jovany Ramsey MD -[facility] Work Phone: Start: 06-12-2024 ambulatory Demetrius Dennyan Facility:[facility] Start: 06-12-2024 Non-patient / Non-visit Dr. Demetrius anguiano MD -[facility] Start: 06-11-2024 End: 06-15-2024 Evaluation and management of inpatient Dr. Aster Ramsey MD -[facility] Work Phone: Start: 06-11-2024 Non-patient / Non-visit Dr. Mio alba MD -[facility] Work Phone: Start: 06-11-2024 ambulatory Kodak Harding Facility: [facility] Start: 06-11-2024 End: 06-12-2024 Patient encounter procedure [facility] Provider [facility] Start: 03-19-2024 End: 03-19-2024 Office outpatient visit 15 minutes Kodak Harding MD Work Phone: [facility] Comment on above: Hypertension, essent ial (Primary Dx); Paroxysmal atrial fibrillation (HCC) Start: 03-19-2024 End: 03-19-2024 ambulatory KODAK HARDING Facility:[id number] Start: 03-03-2024 End: 03-05-2024 Refill Kodak Harding MD Work Phone: [facility] Comment on above: Refill Request Start: 10-31-2023 End: 10-31-2023 ambulatory KODAK HARDING Facility:[facility] Start: 10-31-2023 Encounter for genera l adult medical examination without abnormal findings KODAK HARDING [facility] Start: 09-26-2023 End: 09-26-2023 Patient encounter procedure Kodak Harding MD Work Phone: [facility] Comment on above: Wellness examination (Primary Dx); Advanced directives, counseling/discussion; Hypertension, essential; Paroxysmal atrial fibrillation (HCC); Acquired hypothyroidism; Osteoarthritis of knee, unspecified laterality, unspecified osteoarthritis type; Screening for deficiency anemia; Pure hypercholesterolemia; Medicare annual wellness visit, subsequent Start: 09-26-2023 End: 09-26-2023 Patient encounter status Kodak Harding MD Work Phone: [facility] Start: 03-23-2023 End: 03-23-2023 Office outpatient visit 15 minutes Kodak Harding MD Work Phone: [facility] Comment on above: Paroxysmal atrial fi brillation (HCC) (Primary Dx); Hypertension, essential; Acquired hypothyroidism; Osteoarthritis of knee, unspecified laterality, unspecified osteoarthritis type Start: 10-05-2022 Telephone encounter Kodak Harding MD Work Phone: [facility] Comment on above: Population Health Na vigation Outreach Start: 03-22-2022 End: 03-22-2022 Office outpatient visit 15 minutes Kodak Harding MD Work Phone: [facility] Comment on above: Paroxysmal atrial fi brillation (HCC) (Primary Dx); Primary hypertension; Acquired hypothyroidism; Osteoarthritis of knee, unspecified laterality, unspecified osteoarthritis type Start: 09-21-2021 End: 09-21-2021 Patient encounter procedure [facility] Start: 03-06-2018 Patient encounter procedure Kodak Harding Facility:[facility] Procedures Date Procedure Procedure Detail Performing Clinician Start: 10-22-2024 Urnls dip stick/tabl et reagent auto microscopy Dr. Kodak Harding MD Work Phone: Start: 10-22-2024 X-ray of chest, PA a nd lateral views Dr. Kodak Harding MD Work Phone: Start: 09-17-2024 Adult depression screening assessment Kodak Harding MD Work Phone: Start: 06-11-2024 CT [...] Author Start: 10-02-2027 Diabetes Screening Diabetes Screening [facility] Start: 10-30-2026 Diabetes Screening Diabetes Screening [facility] Start: 10-04-2025 DIABETES SCREEN DIABETES SCREEN [facility] Start: 10-04-2025 Diabetes Screening Diabetes Screening [facility] Start: 09-17-2025 Anxiety Screening Anxiety Screening [facility] Start: 09-17-2025 Depression Screening Depression Screening [facility] Start: 03-20-2025 End: 03-20-2025 Patient encounter procedure 03/20/2025 1:10 PM EST Office Visit [facility] [address] [place] [address] Kodak Harding MD [address] [place], [place] [id number] 6 mo f/u [facility] Comment on above: 6 mo f/u Start: 12-10-2024 Influenza vaccination [facility] Start: 11-06-2024 End: 02-05-2025 Natriuretic peptide.B prohormone N-Terminal [Mass/volume] in Serum or Plasma NT PRO BNP Lab Routine QUACH (dyspnea on exertion) Expected: 11/06/2024, Expires: 02/05/2025 [facility] Work Phone: Comment on above: Expected: 11/06/2024, Expires: Start: 10-22-2024 [facility] Start: 09-25-2024 Anxiety Screening Anxiety Screening [facility] Start: 09-25-2024 Depression Screening Depression Screening [facility] Start: 09-17-2024 End: 12-17-2024 CBC W Auto Differential panel - Blood COMPLETE BLOOD COUNT AND DIFFERENTIAL Lab Routine Screening for deficiency anemia Expected: 09/17/2024, Expires: 12/17/2024 [facility] Work Phone: Comment on above: Expected: 09/17/2024, Expires: Start: 09-17-2024 End: 12-17-2024 Comprehensive metabolic 2000 panel - Serum or Plasma COMPREHENSIVE METABOLIC PANEL Lab Routine Mixed hyperlipidemia Hypertension, essential Expected: 09/17/2024, Expires: 12/17/2024 [facility] Comment on above: Expected: 09/17/2024, Expires: Start: 09-17-2024 End: 12-17-2024 Thyrotropin [Units/volume] in Serum or Plasma THYROID STIMULATING HORMONE Lab Routine Acquired hypothyroidism Expected: 09/17/2024, Expires: 12/17/2024 [facility] Comment on above: Expected: 09/17/2024, Expires: Start: 09-17-2024 End: 09-17-2024 Patient encounter procedure 09/17/2024 1:00 PM EDT Office Visit [facility] [address] [place] [phone] Kodak Harding MD [address] [place], [place] [id number] Annual Wellness Exam [facility] Comment on above: Annual Wellness Exam Start: 07-30-2024 End: 07-30-2024 Patient encounter procedure 07/30/2024 1:00 PM EDT Office Visit [facility] [address] [place] [address] Kodak Harding MD [address] [place] [address] 1 Month Follow Up [facility] Comment on above: 1 Month Follow Up Start: 06-27-2024 End: 06-27-2024 Patient encounter procedure 06/27/2024 1:00 PM EDT Office Visit [facility] [address] [place] [address] Kodak Harding MD [address] [place] [address] Hospital Follow Up- Urinary Tract Infection [facility] Comment on above: Hospital Follow Up- Urinary Tract Infect ion Start: 06-15-2024 Patient discharge [facility] Start: 06-11-2024 Assessment of risk of venous thromboembolism [facility] Start: 06-11-2024 Bedrest [facility] Start: 06-11-2024 Continuous pulse oximetry [facility] Start: 06-11-2024 Insertion of catheter into peripheral vein [facility] Start: 06-11-2024 Measuring intake and output [facility] Start: 06-11-2024 Neurological assessment [facility] Start: 06-11-2024 Oxygen therapy [facility] Start: 06-11-2024 Providing care according to standard [facility] Start: 06-11-2024 Referral to service [facility] Start: 06-11-2024 Vital signs measurements [facility] Start: 06-11-2024 Following clinical pathway protocol [facility] Start: 06-11-2024 Admission procedure [facility] Start: 06-11-2024 End: 06-11-2024 [facility] Start: 06-11-2024 [facility] Start: 06-11-2024 Bacteria identified in Blood by Culture Blood Culture [facility] Start: 04-11-2024 Advance Directive Discussion Advance Directive Discussion [facility] Start: 03-19-2024 End: 03-19-2024 Patient encounter procedure 03/19/2024 1:50 PM EST Office Visit [facility] [address] [place] [address] Kodak Harding MD [address] [place] [address] 6 Month Follow Up [facility] Comment on above: 6 Month Follow Up Start: 12-11-2023 Covid-19 Vaccine () Covid-19 Vaccine () [facility] Start: 12-11-2023 Influenza vaccination [facility] Start: 09-26-2023 End: 12-26-2023 CBC W Auto Differential panel - Blood COMPLETE BLOOD COUNT AND DIFFERENTIAL Lab Routine Screening for deficiency anemia Expected: 09/26/2023, Expires: 12/26/2023 [facility] Work Phone: Comment on above: Expected: 09/26/2023, Expires: 4 Start: 09-26-2023 End: 12-26-2023 Comprehensive metabolic 2000 panel - Serum or Plasma COMPREHENSIVE METABOLIC PANEL Lab Routine Wellness examination Hypertension, essential Expected: 09/26/2023, Expires: 12/26/2023 [facility] Comment on above: Expected: 09/26/2023, Expires: 4 Start: 09-26-2023 End: 12-26-2023 Lipid 1996 panel - Serum or Plasma LIPID PANEL BASIC Lab Routine Pure hypercholesterolemia Expected: 09/26/2023, Expires: 12/26/2023 [facility] Comment on above: Expected: 09/26/2023, Expires: 4 Start: 09-26-2023 End: 12-26-2023 Thyrotropin [Units/volume] in Serum or Plasma THYROID STIMULATING HORMONE Lab Routine Acquired hypothyroidism Expected: 09/26/2023, Expires: 12/26/2023 [facility] Comment on above: Expected: 09/26/2023, Expires: 4 Start: 03-23-2023 End: 06-22-2023 Thyrotropin [Units/volume] in Serum or Plasma TSH BLD Lab Routine Acquired hypothyroidism Expected: 03/23/2023, Expires: 06/22/2023 [facility] Work Phone: Comment on above: Expected: 03/23/2023, Expires: 4 Start: 12-10-2022 Covid-19 Vaccine () Covid-19 Vaccine () [facility] Start: 12-10-2022 Influenza vaccination [facility] Start: 03-22-2022 End: 05-22-2022 Basic metabolic 2000 panel - Serum or Plasma BASIC METABOLIC PNL Lab Routine Primary hypertension Expected: 03/22/2022, Expires: 05/22/2022 [facility] Work Phone: Comment on above: Expected: 03/22/2022, Expires: 3 Start: 03-22-2022 End: 05-22-2022 Thyrotropin [Units/volume] in Serum or Plasma TSH BLD Lab Routine Acquired hypothyroidism Expected: 03/22/2022, Expires: 05/22/2022 [facility] Work Phone: Comment on above: Expected: 03/22/2022, Expires: 3 Start: 12-10-2021 Influenza vaccination INFLUENZA (#1) [facility] Start: 04-11-2021 ADVANCE DIRECTIVE DISCUSSION ADVANCE DIRECTIVE DISCUSSION [facility] Start: 04-11-2021 DEPRESSION ASSESSMENT DEPRESSION ASSESSMENT [facility] Start: 01-30-2021 COVID-19 VACCINE (3 - Booster for Moderna series) COVID-19 VACCINE (3 - Booster for Moderna series) [facility] Start: 07-20-2010 RSV Vaccine (1 - 1-dose 75+ series) RSV Vaccine (1 - 1-dose 75+ series) [facility] Start: 07-20-2000 BONE DENSITY BONE DENSITY [facility] Start: 07-20-2000 Pneumococcal Vaccine: 65+ (1 - PCV) Pneumococcal Vaccine: 65+ (1 - PCV) [facility] Start: 07-20-2000 Pneumococcal Vaccine: 65+ (1 of 1 - PCV) Pneumococcal Vaccine: 65+ (1 of 1 - PCV) [facility] Start: 07-20-2000 PNEUMOCOCCAL: 65+ (1 - PCV) PNEUMOCOCCAL: 65+ (1 - PCV) [facility] Start: 07-20-2000 Screening for osteoporosis Bone Density Screening [facility] Start: 1995 RSV Vaccine (1 - 1-dose 60+ series) RSV Vaccine (1 - 1-dose 60+ series) [facility] Start: 07-20-1985 Pneumococcal Vaccine: 50+ (1 of 1 - PCV) Pneumococcal Vaccine: 50+ (1 of 1 - PCV) [facility] Start: 07-20-1985 SHINGRIX VACCINE (1 of 2) SHINGRIX VACCINE (1 of 2) [facility] Start: 07-20-1980 DIABETES SCREEN DIABETES SCREEN [facility] Start: 07-20-1954 Urine microalbumin profile [facility] Start: 01-20-1936 COVID-19 VACCINE (#1) COVID-19 VACCINE (#1) [facility] Basic metabolic 2008 panel with ionized calcium - Serum or Plasma [facility] CT Chest WO contrast [facility] Measurement of respiratory function [facility] Measurement of respiratory function [facility] Natriuretic peptide. B prohormone N-Terminal [Mass/volume] in Serum or Plasma [facility] Patient Education Pulmonary Fibr osis ED Cellulitis ED Peripheral Edema, Bilateral [facility] Work Phone: Patient referral [facility] Work Phone: [facility] Immunizations Immunization Date Immunization Notes Care Provider Zohaib lorenz 12-05-2020 COVID-19 original vaccine, full dose, monovalent (MODERNA) Kodak Harding MD Work Phone: [facility] 11-07-2020 COVID-19 original vaccine, full dose, monovalent (MODERNA) Kodak Harding MD Work Phone: [facility] Payers Date Payer Category Payer Self-pay [id number] 2017 Medicare [employer] MEDICARE HU[employer] MEDICARE PPO [id number] 2017-Present [phone] [address] [address] [place] [address] PPO [id number] 2017 Medicare (Managed Care) 1.2. [id number] 2013 Private Health Insurance [id number] Unknown [id number]. [id number] Unknown [id number]. 2.462 Unknown [id number] [id number]. 2.462 Unknown [id number] [id number]. 2.462 Unknown [id number] [id number]. 2.462 Unknown [id number] [id number]. 2.462 Unknown [id number] [id number]. 2.462 Unknown [id number] [id number]. 2.462 Unknown [id number] [id number]. 2.462 Unknown [id number] [id number]. 2.462 Unknown [id number] [id number]. 2.462 Unknown [id number] [id number]. 2.462 Unknown [id number] [id number]. 2.462 Unknown [id number] [id number]. 2.462 Social History Date Type Detail [facility] [facility] Work Phone: Start: 1935 Sex Assigned At Female [facility] Start: 03-22-2022 End: 11-05-2024 Tobacco smoking status NHIS Never smoked tobacco [facility] Start: 03-22-2022 Tobacco use and exposure Smoke less tobacco non-user [facility] Start: 03-22-2022 End: 09-17-2024 Alcohol intake Lifetime non-drinker (finding) [facility] Start: 1935 Sex Assigned At Not on file [facility] Start: 09-20-2022 History SDOH Alcohol Frequency 1 [facility] Start: 09-20-2022 History SDOH Alcohol Std Drinks 0 [facility] Start: 09-20-2022 History SDOH Social Connections Phone 5 [facility] Start: 09-20-2022 History SDOH Social Connections Membership 2 [facility] Start: 09-20-2022 History SDOH Social Connections Living 4 [facility] Start: 09-20-2022 History SDOH Physica l Activity DPW 3 [facility] Start: 09-20-2022 End: 09-17-2024 History of Social function [facility] Start: 09-20-2022 End: 09-17-2024 Social connection and isolation panel [facility] Do you belong to any clubs or organizations such as temple groups, unions, fraternal or athletic groups, or school groups? No [facility] Are you now , , , , never or living with a partner? [facility] How often to you hav e a drink containing alcohol? Never [facility] How many standard dr inks containing alcohol do you have on a typical day? Patient does not drink [facility] Do you feel stress - tense, restless, nervous, or anxious, or unable to sleep at night because your mind is troubled all the time - these days [OSQ] Only a little [facility] (I/We) worried padilla er (my/our) food would run out before (I/we) got money to buy more. Never true [facility] Start: 06-15-2024 Sex Female (finding) [facility] Goals Date Patient Goal Desired Activity /State Functional Status Date Assessment Result Facility 09-17-2024 Total score [AUDIT-C] 0 09/18/19 25 1:04 PM EDT Kathy Garrett LPN [facility] 06-15-2024 Functional status Activity Abili ty With Assist of 1 [facility] Work Phone: 06-15-2024 Functional status Ambulates [facility] Work Phone: 06-13-2024 Functional status Tolerates Activity Well [facility] Work Phone: [facility] Mental Status Date Assessment Result Facility 10-22-2024 Cognitive function Level Of Cons ciousness Awake;Alert;Appropriate;Follow s Commands [facility] Work Phone: 06-15-2024 Cognitive function Voice/Name [facility] Work Phone: Clinical Notes 03-22-2022 to 11-08-2024 Telephone Encounter - Kathy Garrett LPN - 11/08/2024 9:49 AM EDTTelephone Encounter - Kathy Garrett LPN - 11/08/2024 9:49 AM EDTTelephone Encounter - Kathy Garrett LPN - 11/08/2024 9:02 AM EDT Note Date & Type Note Facility 11-08-2024 Telephone encount er Note This nurse spoke to nurse at [facility]. Orders verified, Dr. Nice has now taken over patients care Kathy Garrett LPN November 08, 2024 9:50 AM [facility] 11-08-2024 Miscellaneous Notes Formattin g of this note might be different from the original. This nurse spoke to nurse at [facility]. Orders verified, Dr. Nice has now taken over patients care Kathy Garrett LPN November 08, 2024 9:50 AM Message left for admissions to phone office in regards to orders and H and P. Kathy Garrett LPN November 08, 2024 9:02 AM Althea from [facility] left message on front loader residential driver voicemail stating patient was admitted to their facility today and was informed by son that Dr. Harding changed recent medications, they would like a order list faxed to [phone] and contact them by phone if any questions at [phone] Annette Nieves documented in this encounter [facility] 11-08-2024 Telephone encount er Note Message left for admissions to phone office in regards to orders and H and P. Kathy Garrett LPN November 08, 2024 9:02 AM [facility] 11-07-2024 Telephone encount er Note Althea from [facility] left message on front loader residential driver voicemail stating patient was admitted to their facility today and was informed by son that Dr. Harding changed recent medications, they would like a order list faxed to [phone] and contact them by phone if any questions at [phone] Annette Nieves [facility] 11-06-2024 Telephone encount er Note This nurse spoke with patients son. Son stated that patient is experiencing increased shortness of breath and bilateral lower extremity edema. This nurse informed of information of medication changes and upcoming lab orders. Son verbalized understanding, this nurse is to send order to [facility]. Additionally, patient does not currently see a Publications Manager. Patient was evaluated and treated for shortness of breath at [facility] on 10-22-2024 Patient was seen in 2008 by Cardiology when diagnosed with A Fib, but did not want to go for the additional testing that they wanted her to receive. Patient does have additional testing scheduled, ordered by [employer]: Pulmonary Function Test November 09, 2024 CT Heart and Lungs November 21, 2024 Echocardiogram November 23, [address] Cardoso [employer] December 05, 2024 Patient is also moving into [facility] with [facility] [phone] tomorrow. Kathy Garrett LPN November 06, 2024 11:15 AM [facility] 11-06-2024 Miscellaneous Notes Formattin g of this note might be different from the original. This nurse spoke with patients son. Son stated that patient is experiencing increased shortness of breath and bilateral lower extremity edema. This nurse informed of information of medication changes and upcoming lab orders. Son verbalized understanding, this nurse is to send order to [facility]. Additionally, patient does not currently see a Publications Manager. Patient was evaluated and treated for shortness of breath at [facility] on 10-22-2024 Patient was seen in 2008 by Cardiology when diagnosed with A Fib, but did not want to go for the additional testing that they wanted her to receive. Patient does have additional testing scheduled, ordered by [employer]: Pulmonary Function Test November 09, 2024 CT Heart and Lungs November 21, 2024 Echocardiogram November 23, [address] Cardoso [employer] December 05, 2024 Patient is also moving into [facility] with [facility] [phone] tomorrow. Kathy Garrett LPN November 06, 2024 [...] Son stated that due to lab work, [employer] Dr. Cardoso would like PCP to look over Diuretics. Patient is currently taking Lasix 20 mg every day, and also Losartan - Hydrochlorothiazide 100-25 mg daily. Kathy Garrett LPN November 06, 2024 10:15 AM Patient's son Benjamín contacted the office requesting a phone call back regarding update on Erin. Pt can be reached at [phone] Annette Nieves documented in this encounter [facility] 11-06-2024 Telephone encount er Note Does patient have symptoms of fluid overload.? Does she have upcoming appointment with cardiology? Increase lasix to 40mg daily for 4 days if having sxs. Hold losartan/hctz.while on increased dose of lasix.recheck bnp in 6 days [facility] 11-06-2024 Telephone encount er Note Images from the original note were not included. This nurse spoke to patients son. Son stated that due to lab work, [employer] Dr. Cardoso would like PCP to look over Diuretics. Patient is currently taking Lasix 20 mg every day, and also Losartan - Hydrochlorothiazide 100-25 mg daily. Kathy Garrett LPN November 06, 2024 10:15 AM [facility] 11-05-2024 Evaluation note Diagnosis Onset Date Resolution Abnormal CXR acute November 05, 2 025 10:58am QUACH (dyspnea on exertion) acute November 05, 2024 10:58am [facility] Work Phone: 1(759) 428-866107-28-2025 Telephone encounter Note* Telephone Encounter - Annette Nieves - 11/05/2024 9:51 AM EDT Patient's son Benjamín contacted the office requesting a phone call back regarding update on Erin. Pt can be reached at [phone] Annette Nieves [facility]07-22-2025 Telephone encounter Note* Telephone Encounter - Kathy Garrett LPN - 10/30/2024 9:21 AM EDT Last Office Visit: 09-17-2024 Next Scheduled Office Visit: 03-20-2025 Requested Prescriptions Pending Prescriptions Disp Refills ELIQUIS 5 mg tab(s) 180 tablet 3 Sig: Take 1 tablet by mouth two times a day. Patient is being seen by Pulmonology Tuesday for Oxygen needs Kathy Garrett LPN October 30, 2024 9:22 AM [facility]07-22-2025 Miscellaneous Notes* Telephone Encounter - Kathy Garrett LPN - 10/30/2024 9:21 AM EDT Last Office Visit: 09-17-2024 Next Scheduled Office Visit: 03-20-2025 Requested Prescriptions Pending Prescriptions Disp Refills ELIQUIS 5 mg tab(s) 180 tablet 3 Sig: Take 1 tablet by mouth two times a day. Patient is being seen by Pulmonology Tuesday for Oxygen needs Kathy Garrett LPN October 30, 2024 9:22 AM * Telephone Encounter - Annette Nieves - 10/29/2024 1:56 PM EDT Patient's son Benjamín phoned the office requesting Rx Eliquis 5mg tablets to be sent to [facility] pharmacy in [place] on file. Son states previous refill request was cancelled by Dr. Harding per [facility] mail order, she will be out of medication. Also son wanted to know if Dr. Harding could place an order for oxygen. Son can be contacted at [phone] Next appt: 03/20/2025 Last appt: 09/17/2024 Annette Nieves [facility] Telephone encounter Note * Telephone Encounter - Annette Nieves - 10/29/2024 1:56 PM EDT Patient's son Benjamín phoned the office requesting Rx Eliquis 5mg tablets to be sent to [facility] pharmacy in [place] on file. Son states previous refill request was cancelled by Dr. Harding per [facility] mail order, she will be out of medication. Also son wanted to know if Dr. Harding could place an order for oxygen. Son can be contacted at [phone] Next appt: 03/20/2025 Last appt: 09/17/2024 Annette Nieves [facility]07-15-2025 NoteHNO ID: [id number] Author: ARCELIA WEBER RN Service: ? Author Type: Registered Nurse Type: Progress Notes Filed: 10/23/2024 15:07 Note Text: [facility] Chart Review Provider Action/FYI Patient identified by name and date of :YES Patient identified for Care Coordination from: Notify ED Discharge report Was patient contacted?: Yes, but unable to make contact and unable to leave a voicemail Patient discharged from [place] on 10/22/24 ED Provider Discharge summary: Discharge [...] Outreach Plan:Follow up call needed:Yes [facility]cel[facility] History of Present illness Narrative* Arcelia Weber RN - 10/23/2024 2:31 PM EDT [facility] Chart Review Provider Action/FYI Patient identified by name and date of :YES Patient identified for Care Coordination from: Notify ED Discharge report Was patient contacted?: Yes, but unable to make contact and unable to leave a voicemail Patient discharged from [place] on 10/22/24 ED Provider Discharge summary: Discharge [...] needed:Yes Arcelia Weber RN documented in [facility] encounter[facility]07-15-2025 NotePatient Outreach (MRCAC) ESTEBAN WOODS ([id number]) 1935 F [facility] Date Time Provider Department 10/23/24 ARCELIA WEBER [facility] During your visit today, we recorded the following information about you: Arcelia Weber RN 10/23/2024 3:07 PM Signed [facility] Chart Review Provider Action/FYI Patient identified by name and date of :YES Patient identified for Care Coordination from: Notify ED Discharge report Was patient contacted?: Yes, but unable to make contact and unable to leave a voicemail Patient discharged from [place] on 10/22/24 ED Provider Discharge summary: Discharge [...] LPN - Fully Assessed 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 - cp-bm-WT-vit G-dxypk-pcs-coQ10 (DAILY MULTIVITAMIN) 200-100-500 mcg cap Take 1 capsule by mouth once daily. Problem List As Of Date 10/23/2024 Noted Resolved Atrial fibrillation (HCC) [I48.91] 08/30/2019 Hypertension, essential [I10] 02/25/2017 Hypothyroidism [E03.9] 02/25/2017 Osteoarthritis of knee [M17.9] 09/01/2017 Hyperlipidemia, unspecified [E78.5] 09/26/2023 Intracranial meningioma (HCC) [D32.0] 06/15/2024 Encounter Status:Closed by ARCELIA WEBER on 10/23/24[facility] 10[facility] Discharge summary [facility] Medical Records Department [address] [place], [place] [address] [address] Emergency Department Summary 10/22/24 MR#: [id number] Acct: [id number] Name: ESTEBAN WOODS Rep #:[id number] : 1935 89 From: Jeyson Mayer MD [...] denies anyrecent fevers or chills, no cough, nodysuria or hematuria. States her legs areswollen, and there is a small ulceration on her right medial lower leg that started to turn red today. She is concerned because she feels generally weak for the past few months and short of breath with dyspnea on exertion. PFSH PFS Medical History Hypertension Home Medications ?Medication ?Instructions [...] vomiting. Positive leg swelling over the last fewmonths as well. Small ulcer on right lower [...] limited to pneumonia versus pneumothoraxversus CHF. She hashad 4 months of increasing shortness of breath and dyspnea on exertion. History and physical does not support pneumonia or pneumothorax. Regarding her generalized weakness she may have dehydration or other electrolyteimbalance. I have low concern for pulmonary embolism because she is already being treated with Eliquis 5 mg twice a day. In discussion with the patient andher son, they state that hevisits frequently, and they decided today that they [...] STEMI. WBC count normal at 9.9 with jzthmvpiqs26.9, hematocrit 42.9, platelet count normal at 234. Electrolyte panel shows BUN slightly elevated at 42 with creatinine 1.18. LFTs grossly unremarkable. BNP elevated at 3953 but is been higher when compared to prior labs. Chest x-ray interpreted by myself independently shows fibrotic changes of the interstitial areas. No pneumothoraxor pneumonia. When compared to prior, there is not significant c hange. I reviewed the radiology report which confirms my independent interpretation. I do feel thather shortness of breath for months may be more secondary to fibrotic changes. She will be referred to pulmonology. Review of her urinalysis shows no evidence of infection. However given the cellulitis on her right lower extremity, she will be given her first dose of Augmentin and given a course of therapy for thenext week. She can follow-up with her primary [...] 73.2 H Lymph % (Auto) 17.8 L [place] % (Auto) 7.1 Eos % (Auto) 0.8 [...] Sl. Cloudy Urine pH 6.0 Ur Specific [place] 1.010 Urine Protein 30 H Urine Glucose [...] to exclude. No pleural effusions. Reading Location: [facility] Discharge Plan Triage Chief Complaint: Shortness [...] - 3-5 Days if not improving Hyperbaric Medicine,Des Wound and [Non-Staff] - As Needed Activity Restrictions/Additional Instructions: Antibiotics as directed. Return with fever, increased redness of right lower extremity, new or worsening symptoms. Follow-up with pulmonology as soon as possible. Print Language: Indian Disposition Disposition: Home, Self Care What to do if you have Problems For any increased pain, shortness of breath, bleeding, nausea or vomiting, chestpain, or any unexpected problems, contact your Primary Care Provider. Call [facility] ([phone]) or report tothe closest Emergency Room. Call 911 if necessary. 10/22/241927 Cosigner Signature (if applicable): CC: Dr. Kodak Harding MD ~ Signed [facility]07-14-2025 Radiology Diagnostic study note [facility] Imaging Services [address] [place] [address] Chest PA and Lateral MR#: [id number] Acct: [id number] Name: ESTEBAN WOODS Rep #: [id number] : 1935 F 89 From: Caleb Espinoza MD PCP: Dr. Kodak Harding MD Status: REG ER Study:Chest PA and Lateral Date of Exam: 10/22/24 Exam# [id number] Ordering Dr: Jeyson Mayer MD PROCEDURE: CHEST [...] to exclude. No pleural effusions. Reading Location: [facility] CC: Dr. Jeyson Mayer MD; Dr. Kodak Harding MD ~ Desktop Support Specialist: Signed [facility]07-14-2025 Discharge summary Author Jeyson Mayer [facility] Note Date/Time October 22, 2024 7:28 pm [facility] Medical Records Department [address] [place] [address] Emergency Department Summary 10/22/24 MR#: [id number] Acct: [id number] Name: ESTEBAN WOODS Rep #:[id number] : 1935 89 From: Jeyson Mayer MD [...] short of breath with dyspnea on exertion. PFSH PFS Medical History Hypertension Home Medications ?Medication ?Instructions [...] 73.2 H Lymph % (Auto) 17.8 L [place] % (Auto) 7.1 Eos % (Auto) 0.8 [...] Sl. Cloudy Urine pH 6.0 Ur Specific [place] 1.010 Urine Protein 30 H Urine Glucose [...] to exclude. No pleural effusions. Reading Location: [facility] Discharge Plan Triage Chief Complaint: Shortness [...] - 3-5 Days if not improving Hyperbaric Medicine,[place] Wound and [Non-Staff] - As Needed Activity Restrictions/Additional Instructions: Antibiotics as directed. Return with fever, increased redness of right lower extremity, new or worsening symptoms. Follow-up with pulmonology as soon as possible. Print Language: Indian Disposition Disposition: Home, Self Care What to do if you have Problems For any increased pain, shortness of breath, bleeding, nausea or vomiting, chestpain, or any unexpected problems, contact your Primary Care Provider. Call [facility] ([phone]) or report to the closest Emergency Room. Call 911 if necessary. 10/22/241927 <Electronically signed by Jeyson Mayer MD> Cosigner Signature (if applicable): CC: Dr. Kodak Harding MD ~ Signed [facility] Work Phone: 1(935) 995-352206-09-2025 Instructions* Patient Instructions* Kodak Harding MD - [...] review all the medicines you take, even rrmi-xvw-nskqeab medicines. As you get older, the way [...] have certain medical conditions. documented in this encounterPark[facility]06-09-2025 NoteHNO ID: [id number] Author: KODAK HARDING MD Service: ? Author [...] 2 tablets by mouth daily at bedtime. bk-iw-PV-vit Y-dkpam-xxe-coQ10 (DAILY MULTIVITAMIN) 200-100-500 mcg cap Take 1 [...] balance and a history (more content not included)...[facility]06-[facility] History of Present illness Narrative* Kodak Harding [...] 2 tablets by mouth daily at bedtime. cb-vu-BZ-vit C-xszzz-bvt-coQ10 (DAILY MULTIVITAMIN) 200-100-500 mcg cap Take 1 [...] (I10) - Blood pressure is well-controlled. 8. manager terminal (current) use of anticoagulants (Z79.01) - Continue [...] analgesics. Kodak Harding MD 09/17/2024 Recording using Poynt software for draft documentation of the visit was discussed with the patient/authorized automobile sales representative; all questions welcomed and answered. Patient/authorized automobile sales representative agreed to proceed Medicare Health [...] series) declined Covid-19 Vaccine( season) declined Esteban Woods is here today [...] 17, 2024 1:09 PM documented in this encounterParkview Health06-09-2025 NoteHNO ID: [id number] Author: KATHY GARRETT LPN Service: ? Author Type: LICENSED NURSE Type: Progress Notes Filed: 09/17/2024 14:13 Note Text: [employer]TE[employer]CE DTaP,Tdap,Td Vaccine(1 - Tdap) declined Shingrix Vaccine(1 of 2) declined Pneumococcal Vaccine: 50+(1 of 1 - PCV) declined Bone Density Screening RSV Vaccine(1 - 1-dose 75+ series) declined Covid-19 Vaccine( season) declined Esteban Woods is here today [...] Kathy Garrett LPN September 17, 2024 1:09 PMSt[facility]04-21-2025 NoteHNO ID: [id number] Author: KODAK HARDING MD Service: ? Author [...] 2 tablets by mouth daily at bedtime. xy-gk-QN-vit F-ltenu-kaz-coQ10 (DAILY MULTIVITAMIN) 200-100-500 mcg cap Take 1 [...] 1. Paroxysmal atrial fibrillation (HCC) (I48.0) 2. manager terminal (current) use of anticoagulants (Z79.01) - No [...] (E78.2) Kodak Harding MD 07/30/2024 Recording using Poynt software for draft documentation of the visit was discussed with the patient/authorized automobile sales representative; all questions welcomed and answered. Patient/authorized automobile sales representative agreed to [facility]04-21-2025 History of Present illness Narrative* Kodak Harding [...] 2 tablets by mouth daily at bedtime. an-dc-FG-vit E-gwckm-lnj-coQ10 (DAILY MULTIVITAMIN) 200-100-500 mcg cap Take 1 [...] 1. Paroxysmal atrial fibrillation (HCC) (I48.0) 2. assisted (current) use of anticoagulants (Z79.01) - No [...] (E78.2) Kodak Harding MD 07/30/2024 Recording using Poynt software for draft documentation of the visit was discussed with the patient/authorized automobile sales representative; all questions welcomed and answered. Patient/authorized automobile sales representative agreed to proceed * Kathy [...] to reduce risk of recurrence of UTI manager terminal current use of anticoagulant therapy Z79.01 Eliquis twice daily Acute heart failure with mildly reduced ejection fraction (HFmrEF, 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) I50.21 Improved on Lasix Patient has been experiencing shortness of breath after ambulation. Denies UTI symptoms. Patient states that edema has been decreased. No refills needed Kathy Garrett LPN July 30, 2024 1:01 PM documented in this encounterParkview Health04-21-2025 NoteHNO ID: [id number] Author: KATHY GARRETT LPN Service: ? Author [...] to reduce risk of recurrence of UTI manager terminal current use of anticoagulant therapy Z79.01 Eliquis twice daily Acute heart failure with mildly reduced ejection fraction (HFmrEF, 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) I50.21 Improved on Lasix Patient has been experiencing shortness of breath after ambulation. Denies UTI symptoms. Patient states that edema has been decreased. No refills needed Kathy Garrett LPN July 30, 2024 1:01 PM[facility]03-27-2025 NoteHNO ID: [id number] Author: ARCELIA WEBER RN Service: ? Author Type: Registered Nurse Type: Progress Notes Filed: 07/05/2024 13:45 Note Text: Unable to make contact Provider Action/FYI Patient identified by name and date of : YES An attempt was made to contact: Patient Was a voicemail left? No unable to leave a voicemail Outreach Plan: Follow up call needed:No Arcelia Weber RNSt. [facility]03-[facility] History of Present illness Narrative* Arcelia Weber RN - 07/05/2024 1:42 PM EDT Unable to make contact Provider Action/MICHEAL Patient identified by name and date of : YES An attempt was made to contact: Patient Was a voicemail left? No unable to leave a voicemail Outreach Plan: Follow up call needed:No Arcelia Weber RN documented in this encounterParkview Health03-27-2025 NotePatient Outreach (MRCAC) ESTEBAN WOODS ([id number]) 1935 F [facility] Date Time Provider Department 07/05/24 ARCELIA WEBER MRCAC During your visit today, [...] tablets by mouth daily at bedtime. - aj-jm-NX-vit L-cbjye-qld-coQ10 (DAILY MULTIVITAMIN) 200-100-500 mcg cap Take 1 capsule by mouth once daily. Problem List As Of Date 07/05/2024 Noted Resolved Atrial fibrillation (HCC) [I48.91] 08/30/2019 Hypertension, essential [I10] 02/25/2017 Hypothyroidism [E03.9] 02/25/2017 Osteoarthritis of knee [M17.9] 09/01/2017 Encounter Status:Closed by ARCELIA WEBER on 07/05/24[facility] 06-27-2024 NoteHNO ID: [id number] Author: KODAK HARDING MD Service: ? Author Type: Physician Type: Progress Notes Filed: 06/27/2024 14:08 Note Text: Khai Woods is a 88 year old female.Patient is in office for a Transition of Care Visit following recent hospital stay. Patient was evaluated and treated at [facility] from 06-11-2024 to 06-15-2024 for UTI with [...] 2 tablets by mouth daily at bedtime. wn-pb-II-vit Y-nkvqe-xqv-coQ10 (DAILY MULTIVITAMIN) 200-100-500 mcg cap Take 1 [...] Encounter Diagnosis ICD-10-CM 1. Persistent atrial fibrillation ([facility]) I48.19 RVR resolved. Continue beta-marilyn. Monitor symptoms. 2. Hypertension, essential I10 Stable 3. Sepsis, due to unspecified organism, unspecified whether acute organ dysfunction present ([facility]) A41.9 Resolved 4. Acute respiratory failure with hypoxia ([facility]) J96.01 Resolved 5. Acute lower UTI N39.0 Resolved. Discussed hygiene to reduce risk of recurrence of UTI 6. Acute heart failure with mildly reduced ejection fraction (HFmrEF, 41-49%) ([facility]) I50.21 Improved on Lasix 7. manager terminal current use of anticoagulant therapy Z79.01 Eliquis twice daily Kodak Harding MD June 27, 2024 06/27/2024[facility]03-19-[facility] History of Present illness Narrative* Kodak Harding MD - 06/27/2024 1:52 PM EDT Subjective Esteban Woods is a 88 year old female.Patient is in office for a Transition of Care Visit following recent hospital stay. Patient was evaluated and treated at [facility] from 06-11-2024 to 06-15-2024 for UTI with [...] 2 tablets by mouth daily at bedtime. pe-vr-RO-vit S-gmbfh-wey-coQ10 (DAILY MULTIVITAMIN) 200-100-500 mcg cap Take 1 [...] Encounter Diagnosis ICD-10-CM 1. Persistent atrial fibrillation ([facility]) I48.19 RVR resolved. Continue beta-marilyn. Monitor symptoms. 2. Hypertension, essential I10 Stable 3. Sepsis, due to unspecified organism, unspecified whether acute organ dysfunction present ([facility]) A41.9 Resolved 4. Acute respiratory failure with hypoxia ([facility]) J96.01 Resolved 5. Acute lower UTI N39.0 Resolved. Discussed hygiene to reduce risk of recurrence of UTI 6. Acute heart failure with mildly reduced ejection fraction (HFmrEF, 41-49%) ([facility]) I50.21 Improved on Lasix 7. assisted current use of anticoagulant therapy Z79.01 Eliquis twice daily Kodak Harding MD June 27, 2024 06/27/2024 * Kathy Garrett LPN - 06/27/2024 1:00 PM EDT Patient is in office for a Transition of Care Visit following recent hospital stay. Patient was evaluated and treated at [facility] from 06-11-2024 to 06-15-2024 for UTI with [...] 27, 2024 1:03 PM documented in this encounterParkview Health03-19-2025 NoteHNO ID: [id number] Author: KATHY GARRETT LPN Service: ? Author Type: LICENSED NURSE Type: Progress Notes Filed: 06/27/2024 14:08 Note Text: Patient is in office for a Transition of Care Visit following recent hospital stay. Patient was evaluated and treated at [facility] from 06-11-2024 to 06-15-2024 for UTI with [...] better Kathy GarrettMATI June 27, 2024 1:03 [facility]03-11-2025 NoteHNO ID: [id number] Author: ARCELIA WEBER RN Service: ? Author Type: Registered Nurse Type: Progress Notes Filed: 06/19/2024 14:05 Note Text: TRANSITION CARE MANAGEMENT (TCM) FOLLOW-UP NOTE Provider Action/FYI Patient identified by name and date of : YES Spoke to patient Discharge Network Status: Nkl-rk-Yrmyhms (OON) Discharge Summary: Patient answered the phone, I introduced myself and patient then hung up the phone. Environmental Health Inspector plan for next outreach: Will follow up yes LOUISE Education Ordered -: No Arcelia Weber RN June 19, 2024 2:04 [facility]03-11-2025 History of Present illness Narrative* Arcelia Weber RN - 06/19/2024 1:46 PM EDT TRANSITION CARE MANAGEMENT (TCM) FOLLOW-UP NOTE Provider Action/FYI Patient identified by name and date of : YES Spoke to patient Discharge Network Status: Efo-bp-Jstwavs (OON) Discharge Summary: Patient answered the phone, I introduced myself and patient then hung up the phone. Environmental Health Inspector plan for next outreach: Will follow up yes LOUISE Education Ordered -: No Arcelia Weber RN June 19, 2024 2:04 PM documented in this encounterParkview Health03-11-2025 NotePatient Outreach (MRCAC) ESTEBAN WOODS ([id number]) 1935 F T Date Time Provider Department 06/19/24 ARCELIA WEBER [facility] During your visit today, we recorded the following information about you: Arcelia Weber RN 06/19/2024 2:05 PM Addendum TRANSITION CARE MANAGEMENT (TCM) FOLLOW-UP NOTE Provider Action/FYI Patient identified by name and date of : YES Spoke to patient Discharge Network Status: Fgq-iw-Ivmpnyr (OON) Discharge Summary: Patient answered the phone, I introduced myself and patient then hung up the phone. Environmental Health Inspector plan for next outreach: Will follow up [...] 81 mg by mouth once daily. - vm-eq-XU-vit M-ffaft-wci-coQ10 (DAILY MULTIVITAMIN) 200-100-500 mcg cap Take 1 capsule by mouth once daily. Problem List As Of Date 06/19/2024 Noted Resolved Atrial fibrillation (HCC) [I48.91] 08/30/2019 Hypertension, essential [I10] 02/25/2017 Hypothyroidism [E03.9] 02/25/2017 Osteoarthritis of knee [M17.9] 09/01/2017 Encounter Status:Closed by ARCELIA WEBER on 06/19/24[facility] 06-18-2024 NoteHNO ID: [id number] Author: ARCELIA WEBER RN Service: ? Author Type: Registered Nurse Type: Progress Notes Filed: 06/18/2024 12:18 Note Text: Unable to make contact Provider Action/FYI Patient identified by name and date of : YES An attempt was made to contact: Patient Was a voicemail left? No unable to leave a voicemail Outreach Plan: Follow up call needed:No [facility]celia [facility] History of Present illness Narrative* Arcelia Weber RN - 06/18/2024 12:17 PM EDT Unable to make contact Provider Action/LEANDRAI Patient identified by name and date of : YES An attempt was made to contact: Patient Was a voicemail left? No unable to leave a voicemail Outreach Plan: Follow up call needed:No Arcelia Weber RN documented in this encounterParkview Health03-10-2025 NotePatient Outreach (MRCAC) ESTEBAN WOODS ([id number]) 1935 F CHT Date Time Provider Department 06/18/24 ARCELIA WEBER During your visit today, we recorded the following information about you: Arcelia Weber RN 06/18/2024 12:18 PM Signed Unable to make contact Provider Action/MICHEAL Patient identified by name and date of [...] 81 mg by mouth once daily. - yr-hf-JK-vit X-ggyzh-hvp-coQ10 (DAILY MULTIVITAMIN) 200-100-500 mcg cap Take 1 capsule by mouth once daily. Problem List As Of Date 06/18/2024 Noted Resolved Atrial fibrillation (HCC) [I48.91] 08/30/2019 Hypertension, essential [I10] 02/25/2017 Hypothyroidism [E03.9] 02/25/2017 Osteoarthritis of knee [M17.9] 09/01/2017 Encounter Status:Closed by ARCELIA WEBER on 06/18/24[facility] 06-15-2024 Discharge summary Author Aster Ramsey [facility] Note Date/Time June 15, 2024 1:58 pm [facility] Medical Records Department [address] [place] [address] Discharge Summary 06/15/24 1343 MR#: [id number] Acct: [id number] Name: ESTEBAN WOODS Rep #:[id number] : 1935 88 From: Aster Ramsey MD PCP: Dr. Kodak Harding MD Status:ADM IN Location: [facility] [id number] Providers Date of Admission: 06/11/24 Primary Care [...] daily. She will follow-up with her outpatient user interface artist for further management of her anticoagulation. Physical [...] can be placed): Home, Self Care 06/15/24 4233 <Electronically signed by Aster Ramsey MD> Cosigner Signature (if applicable): CC: Dr. Aster Ramsey MD; Dr. Kodak Harding MD~ Signed [facility] Work Phone: 1(256) 304-427303-07-2025 Discharge summary [facility] Medical Records Department [address] [place] [address] Discharge Summary 06/15/24 1343 MR#: [id number] Acct: [id number] Name: ESTEBAN WOODS Rep #:[id number] : 1935 88 From: Aster Ramsey MD PCP: Dr. Kodak Harding MD Status:ADM IN Location: [place] [address] Providers Date of Admission: 06/11/24 Primary Care [...] Needs PT/OT/case management, can be transferred to PCU/UT Medications at Discharge Home Medications levothyroxine 112 [...] daily. She will follow-up with her outpatient user interface artist for further management of her anticoagulation. Physical [...] Ramsey MD; Dr. Kodak Harding MD~ Signed [facility]03-07-2025 [facility] Medical Records Department [address] [place] [address] Discharge Summary 06/15/24 1343 MR#: [id number] Acct: [id number] Name: ESTEBAN WOODS Rep #: [id number] : 1935 88 From: Aster Ramsey MD PCP: Dr. Kodak Harding MD Status:ADM IN Location: PCU [id number] Providers Date of Admission: 06/11/24 Primary Care [...] daily. She will follow-up with her outpatient user interface artist for further management of her anticoagulation. Physical [...] Mio Benitez; Junaid Travis (more content not included)...[facility]03-06-2025 Progress note Author Aster Ramsey [facility] Note Date/Time June 14, 2024 10:0 6am [facility] Medical Records Department [address] [place] [address] Progress Note - Hospitalist 06/14/24 1002 MR#: [id number] Acct: [id number] Name: ESTEBAN WOODS Rep #:[id number] : 1935 88 From: Aster Ramsey MD PCP: Dr. Kodak Harding MD Status:ADM IN Location: ICU ICU- Reason for Visit Reason for Visit: Diagnoses [...] Cosigner Signature (if applicable): CC: ~ Signed [facility] Work Phone: 1(535) 969-364503-06-2025 Progress note [facility] Medical Records Department [address] [place] [address] Progress Note - Hospitalist 06/14/24 1002 MR#: [id number] Acct: [id number] Name: ESTEBAN WOODS Rep #:[id number] : 1935 88 From: Aster Ramsey MD [...] Cosigner Signature (if applicable): CC: ~ Signed [facility]03-05-2025 Progress note Author Aster Ramsey [facility] Note Date/Time June 13, 2024 11:2 4am [facility] Medical Records Department [address] [place] [address] Progress Note - Hospitalist 06/13/24 0923 MR#: [id number] Acct: [id number] Name: ESTEBAN WOODS Rep #:[id number] : 1935 88 From: Aster Ramsey MD [...] 79.4 H, Lymph % (Auto) 11.5 L, [place] % (Auto) 7.5, Eos % (Auto) 0.6, [...] this time Charges/Coding Visit Charges Inpatient E&M: 92114 Init Hosp L2 06/13/24 1124 <Electronically signed by Aster Ramsey MD> Cosigner Signature (if applicable): CC: ~ Signed [facility] Work Phone: 1(163) 155-340203-05-2025 Progress note [facility] Medical Records Department [address] [place] [address] Progress Note - Hospitalist 06/13/2423 MR#: [id number] Acct: [id number] Name: ESTEBAN WOODS Rep #:[id number] : 1935 88 From: Aster Rmasey MD PCP: Dr. Kodak Harding MD Status:ADM [...] 79.4 H, Lymph % (Auto) 11.5 L, [place] % (Auto) 7.5, Eos % (Auto) 0.6, [...] this time Charges/Coding Visit Charges Inpatient E&M: 68755 Init Hosp L2 06/13/24 1124 Cosigner Signature (if applicable): CC: ~ Signed [facility]03-04-2025 Progress note Author Junaid Travis [facility] Note Date/Time June 12, 2024 9:04 am [facility] Medical Records Department [address] [place] [address] Progress Note - Hospitalist 06/12/24 0900 MR#: [id number] Acct: [id number] Name: ESTEBAN WOODS Rep #:[id number] : 1935 88 From: Junaid robertson MD [...] % (Auto) 69.7, Lymph % (Auto) 21.4, [place]% (Auto) 7.0, Eos % (Auto) 0.8, Baso [...] Clarity Cloudy, Urine pH 6.5, Ur Specific [place] 1.015, Urine Protein 100 H, Urine Glucose [...] 75.5 H, Lymph % (Auto) 14.7 L, [place] % (Auto) 8.1, Eos % (Auto) 0.7, [...] changes 3. Left parietal meningioma [facility] Narrative General: Alert, Oriented x3, [...] DVT: Eliquis Charges/Coding Visit Charges Inpatient E&M: 73370 Subs Hosp L2 06/12/24 0904 <Electronically signed by Junaid Travis MD> Cosigner Signature (if applicable): CC: ~ Signed [facility] Work Phone: 1(920) 333-326303-04-2025 Progress note [facility] Medical Records Department [address] [place] [address] Progress Note - Hospitalist 06/12/24 0900 MR#: [id number] Acct: [id number] Name: ESTEBAN WOODS Rep #:[id number] : 1935 88 From: uJnaid robertson MD PCP: Dr. Kodak Harding MD [...] % (Auto) 69.7, Lymph % (Auto) 21.4, [place]% (Auto) 7.0, Eos % (Auto) 0.8, Baso [...] Clarity Cloudy, Urine pH 6.5, Ur Specific [place] 1.015, Urine Protein 100 H, Urine Glucose [...] 75.5 H, Lymph % (Auto) 14.7 L, [place] % (Auto) 8.1, Eos % (Auto) 0.7, [...] changes 3. Left parietal meningioma [facility] Ex[facility] Narrative General: Alert, Oriented x3, [...] DVT: Eliquis Charges/Coding Visit Charges Inpatient E&M: 07131 Subs Hosp L2 06/12/24 0904 Cosigner Signature (if applicable): CC: ~ Signed [facility]03-04-2025 Discharge summary Author Bob Cidrus [facility] Note Date/Time June 11, 2024 11:1 4pm [facility] Medical Records Department [address] [place] [address] Emergency Department Summary 06/11/24 MR#: [id number] Acct: [id number] Name: ESTEBAN WOODS Rep #:[id number] : 1935 88 From: Bob Irwin PCP: Dr. Kodak Harding MD Status:ADM IN Location: ICU ICU[address] [place] [address] History of Present Illness Chief Complaint: Neuro [facility] Medical History (Updated 06/11/24 @ 22:39 by [...] Oxygen Flow Rate (L/min) 2 2 MDM [facility] Narrative Medical decision making narrative: HISTORY OF [...] others: The patient's son Consults: Neurosurgery at [facility] Emergency is Dr. Donaldson, Internal Medicine [...] Dr. Benitez initially recommended transfer. Discussed with [facility] Neurosurgery Dr. Donaldson who noted the [...] to ICU This note was generated with [employer] dictation software. It may contain incorrectwords, spelling, [...] % (Auto) 69.7 Lymph % (Auto) 21.4 [place] % (Auto) 7.0 Eos % (Auto) 0.8 [...] Clarity Cloudy Urine pH 6.5 Ur Specific [place] 1.015 Urine Protein 100 H Urine Glucose [...] Discharge Plan Disposition Disposition: Acute Care Hospital [facility] Discharge Date/Time: 06/11/24 22:55 What to do if you have Problems For any increased pain, shortness of breath, bleeding, nausea or vomiting, chestpain, or any unexpected problems, contact your Primary Care Provider. Call [facility] ([phone]) or report to the closest Emergency Room. Call 911 if necessary. 06/11/244 <Electronically signed by Bob Liu DO> Cosigner Signature (if applicable): CC: Dr. Kodak Harding MD ~ Signed [facility] Work Phone: 1(388) 365-239303-04-2025 Evaluation note* Diagnosis Onset Date Resolution Status Admit Date Atrial fibrillation with RVR acute June 11, 2024 10:45pm Elevated troponin acute June 112024 10:45pm Meningioma, cerebral acute Kenan h 2024 10:45pm Sepsis acute June 11 10:45pm Urinary tract infection acute M arch 2024 10:45pm [facility] Work Phone: 1(483) 980-393603-04-2025 History and physical note Author Mio Benitez [facility] Note Date/Time June 11, 2024 10:4 4pm [facility] Medical Records Department [address] [place] [address] History & Physical Exam 06/11/249 MR#: [id number] Acct: [id number] Name: ESTEBAN WOODS Rep #:[id number] : 1935 88 From: Mio Benitez MD [...] parietal meningioma reported for which neurosurgery at [facility] Was consulted by ER physician and [...] treatment of urinary tract infection with sepsis [facility] Medical History (Updated 06/11/24 @ 22:39 by [...] Cannula Oxygen Flow Rate (L/min) 2 2 03/03/25 20:45 06/11/24 21:12 06/11/24 22:00 Temperature 97.7 [...] % (Auto) 69.7, Lymph % (Auto) 21.4, [place]% (Auto) 7.0, Eos % (Auto) 0.8, Baso [...] Clarity Cloudy, Urine pH 6.5, Ur Specific [place] 1.015, Urine Protein 100 H, Urine Glucose [...] 3. Left parietal meningioma Reading Location: [facility] Assessment & Plan Assessment/Plan (1) Urinary tract [...] as above Charges/Coding Visit Charges Inpatient E&M: 32840 Init Hosp L2 06/11/24 2244 <Electronically signed by Mio Benitez MD> Cosigner Signature (if applicable): CC: Dr. Mio Benitez MD; Dr. Kodak Harding MD~ Signed [facility] Work Phone: 1(353) 178-506403-03-2025 Discharge summary [facility] Medical Records Department [address] [place] [address] Emergency Department Summary 06/11/24 MR#: [id number] Acct: [id number] Name: ESTEBAN WOODS Rep #:[id number] : 1935 88 From: Bob Irwin PCP: Dr. Kodak Harding MD Status:ADM IN Location: ICU ICU[address] [place] [address] History of Present Illness Chief Complaint: Neuro [...] others: The patient's son Consults: Neurosurgery at [facility] Emergency is Dr. Donaldson, Internal Medicine (Dr. Crum) [facility] Narrative: The patient was initially hypertensive [...] Dr. Benitez initially recommended transfer. Discussed with [facility] Neurosurgery[facility] Donaldson who noted the patient would [...] to ICU This note was generated with [employer] dictation software. It may contain incorrectwords, spelling, and punctuation that were not noted in review of the chart prior to signing. Lab Data Labs: Laboratory Results - last 24 hr 03/07/0306/11/24 06/11/24 18:45 18:50 20:31 WBC 14.6 H RBC 4.59 Hgb 14.9 Hct 45.0 MCV 98.0 MCH 32.5 H MCHC 33.1 RDW Std Deviation 47.4 H RDW Coeff of Hong 13.2 Plt Count 262 MPV 9.4 Immature Gran % (Auto) 0.500 Neut % (Auto) 69.7 Lymph % (Auto) 21.4 [place] % (Auto) 7.0 Eos % (Auto) 0.8 [...] Clarity Cloudy Urine pH 6.5 Ur Specific [place] 1.015 Urine Protein 100 H Urine Glucose [...] Discharge Plan Disposition Disposition: Acute Care Hospital [facility] Discharge Date/Time: 06/11/24 22:55 What to do if you have Problems For any increased pain, shortness of breath, bleeding, nausea or vomiting, chestpain, or any unexpected problems, contact your Primary Care Provider. Call [facility] ([phone]) or report tothe closest Emergency Room. Call 911 if necessary. 06/11/24 8054 Cosigner Signature (if applicable): CC: Dr. Kodak Harding MD ~ Signed [facility]03-03-2025 History and physical note [facility] Medical Records Department [address] [place] [address] History & Physical Exam 06/11/249 MR#: [id number] Acct: [id number] Name: ESTEBAN WOODS Rep #:[id number] : 1935 88 From: Mio Benitez MD PCP: Dr. Kodak Harding MD Status:ADM IN Location: ICU ICU05-1 [facility] General Date of Admission: 06/11/24 Date of [...] and initial NIH score the hospital set [facility] was 0. Patient is a poor historian. [...] parietal meningioma reported for which neurosurgery at [facility] Was consulted by ER physician and [...] treatment of urinary tract infection with sepsis [facility] Medical History (Updated 06/11/24 @ 22:39 by [...] % (Auto) 69.7, Lymph % (Auto) 21.4, [place]% (Auto) 7.0, Eos % (Auto) 0.8, Baso [...] Clarity Cloudy, Urine pH 6.5, Ur Specific [place] 1.015, Urine Protein 100 H, Urine Glucose [...] 3. Left parietal meningioma Reading Location: [facility] Assessment & Plan Assessment/Plan (1) Urinary tract [...] as above Charges/Coding Visit Charges Inpatient E&M: 60494 Init Hosp L2 06/11/24 2244 Cosigner Signature (if applicable): CC: Dr. Mio Benitez MD; Dr. Kodak Harding MD~ Signed [facility]03-03-2025 [facility] Medical Records Department [address] [place] [address] History Physical Exam 06/11/24 2229 MR#: [id number] Acct: [id number] Name: ESTEBAN WOODS Rep #: [id number] : 1935 88 From: Mio Benitez MD PCP: Dr. Kodak Harding MD Status:ADM IN [facility] - [facility] General Date of Admission: 06/11/24 Date of Service: 06/11/24 Chief Complaint: Altered mental status HPI Narrative ESTEBAN MISSLER, is a 88 F who presents to [...] parietal meningioma reported for which neurosurgery at [facility] Was consulted by ER physician and [...] treatment of urinary tract infection with sepsis [facility] Medical History (Updated 06/11/24 @ 22:39 by [...] % (Auto) 69.7, Lymph % (Auto) 21.4, [place] % (Auto) 7.0, Eos % (Auto) 0.8, Baso % (Auto) 0.6, Absolute Neuts (auto) 10.2 H, Absolute Lymphs (auto) 3.12, Nucleated RBC % 0, Sodium 133, Potassium 3.9, C hloride 95 L, Carbon Dioxide 22.6, Anion Gap 15, BUN 23 H, Creatinine 1.00, Est GFR (MDRD) Non-Af (more content not included)...[facility] 06-11-2024 Radiology Diagnostic study note [facility] Imaging Services [address] [place] [address] Chest 1 View (Portable) MR#: [id number] Acct: [id number] Name: ESTEBAN WOODS Rep #: [id number] : 1935 F 88 From: Luly Blackwood MD PCP: Dr. Kodak Harding MD Status: PRE ER Study:Chest 1 View (Portable) Date of Exam: 06/11/24 Exam# [id number] Ordering Dr: Tom Liu DO PROCEDURE: CHEST [...] Harding MD; Dr. Bob Liu DO ~ Desktop Support Specialist: Signed [facility]03-03-2025 Radiology Diagnostic study note [facility] Imaging Services [address] [place], [place] [address] Brain/Head without Contrast MR#: [id number] Acct: [id number] Name: ESTEBAN WOODS Rep #: [id number] : 1935 F 88 From: Luly Blackwood MD PCP: Dr. Kodak Harding MD Status: PRE ER Study:Brain/Head without Contrast Date of Exa m: 06/11/24 Exam# [id number] Ordering Dr: Tom Liu DO EXAM: BRAIN/HEAD [...] Harding MD; Dr. Bob Liu DO ~ Desktop Support Specialist: Signed [facility]12-09-2024 NoteHNO ID: [id number] Author: KODAK HARDING MD Service: ? Author Type: Physician Type: Progress Notes Filed: 03/19/2024 14:35 Note Text: Khai Woods is a 88 year old female.The [...] Take 81 mg by mouth once daily. qn-ur-UT-vit V-epviy-wux-coQ10 (DAILY MULTIVITAMIN) 200-100-500 mcg cap Take 1 [...] Harding MD March 19, 2024 March 19, 2024[facility] History of Present illness Narrative* Kodak Harding MD - 03/19/2024 2:32 PM EST Khai Woods is a 88 year old female.The [...] Take 81 mg by mouth once daily. lr-yu-HA-vit A-obyxp-bjr-coQ10 (DAILY MULTIVITAMIN) 200-100-500 mcg cap Take 1 [...] 19, 2024 1:52 PM documented in this encounterParkview Health12-09-2024 NoteHNO ID: [id number] Author: GIBRAN LESTER LPN Service: ? Author Type: LICENSED NURSE Type: Progress Notes Filed: 03/19/2024 14:35 Note Text: Patient is in office for 6 month exam. Would like to discuss being more fatigued then normal. Would like paper copy of refill medications. Gibran Lester LPN March 19, 2024 1:52 PM[facility] Telephone encounter Note * Telephone Encounter - Althea Bernard LPN - 03/05/2024 9:12 AM EST Pharmacy faxed request for the following refill(s): [facility] 09/26/23 03/19/24 Requested Prescriptions Pending Prescriptions Disp [...] Bernard LPN March 05, 2024 9:15 AM [facility]11-25-2024 Miscellaneous Notes* Telephone Encounter - Althea Bernard LPN - 03/05/2024 9:12 AM EST Pharmacy faxed request for the following refill(s): [facility] 09/26/23 03/19/24 Requested Prescriptions Pending Prescriptions Disp [...] 05, 2024 9:15 AM documented in this encounterParkview Health06-17-2024 Instructions* Patient Instructions* Kodak Harding MD - 09/26/2023 1:43 PM EDT Screening schedule The following prevention plan is recommended: DTaP,Tdap,Td Vaccine(1 - Tdap) Never done Shingrix Vaccine(1 of 2) Never done RSV Vaccine(1 - 1-dose 60+ series) Never done Bone Density Screening Never done Pneumococcal Vaccine: 65+(1 of 1 - PCV) Never done Covid-19 Vaccine( - 2022-24 season) due on 12/10/2022 Advance Directive Discussion [...] review all the medicines you take, even vqnl-poc-zfctzoj medicines. As you get older, the way [...] have certain medical conditions. documented in this encounterParkview Health06-17-2024 History of Present illness Narrative* Kodak Harding MD - 09/26/2023 1:35 PM EDT Images from the original note were not included. Subjective Esteban Lucio Missler is a 88 year old female. Esteban [...] Take 81 mg by mouth once daily. yz-sa-HB-vit G-ruzwg-qhp-coQ10 (DAILY MULTIVITAMIN) 200-100-500 mcg cap Take 1 capsule by mouth once daily. Allergies, past surgical history, family history and past medical history were reviewed per this encounter. Medications were reviewed and verified. Objective BP 128/82 (BP Site: Left Arm, BP Position: Sitting, BP Cuff Size: Regular Adult) Pulse 64 Temp 36.4 C (97.6 F) (Temporal) Resp 18 Ht 157.5 cm (5' 2") Wt 73 kg (161 lb) SpO2 98% [...] (Src) 97.6 (Temporal) Resp 18 Ht 5' 2" (1.58m) Wt 161 lb (73.0kg) SpO2 98% BMI 29.44 kg/(m^2). Vision Screening: Follows with optometry/ophthalmology Assessment/Plan Medicare annual wellness visit, subsequent (Z00.00) - Counseled on healthy diet and regular exercise - Fall avoidance information provided - Personalized prevention plan provided * Kathy Garrtet LPN - 09/26/2023 1:20 PM EDT Patient in the office today for an annual Medicare Wellness exam. Health Maintenance Due: DTaP,Tdap,Td Vaccine(1 - Tdap) declined Shingrix Vaccine(1 of 2) declined RSV Vaccine(1 - 1-dose 60+ series) declined Bone Density Screening Pneumococcal Vaccine: 65+(1 of 1 - PCV) declined Covid-19 Vaccine(3 - season) declined No refills needed Kathy Garrett LPN September 26, 2023 1:11 PM documented in this encounterPark[facility]12-13-2023 History of Present illness Narrative* Kodak Harding MD - 03/23/2023 1:27 PM EST Subjective Esteban Lucio Missler is a 87 year old female. Esteban [...] Take 81 mg by mouth once daily. xr-hz-CS-vit G-ewrog-vgc-coQ10 (DAILY MULTIVITAMIN) 200-100-500 mcg cap Take 1 [...] 18 Ht 157.5 cm (5' 2") Wt 74.8 kg (165 lb) SpO2 97% [...] 23, 2023 1:03 PM documented in this encounterParkview Health06-27-2023 Miscellaneous Notes* Telephone Encounter - Farida Stevens - 10/05/2022 11:08 AM EDT Population Health informed office that the following orders need generated for the care gaps to close for the year. -Need order for bone density testing. Need documentation that vaccines were discussed risks vs benefits. documented in this encounterParkview Health12-12-2022 History of Present illness Narrative* Kodak Harding MD - 03/22/2022 1:32 PM EST This note was created using Preventlyriter. Subjective Erin Woods is a 86 year [...] 18 Ht 157.5 cm (5' 2") Wt 79.5 kg (175 lb 6 oz) [...] 22, 2022 1:23 PM documented in this encounterParkview HealthEvaluation noteNo assessment information availableWooProtestant [facility] Work Phone: Evaluation note* Diagnosis Paroxysmal atrial fibrillation (HCC)- Primary Atrial fibrillation Primary hypertension Unspecified essential hypertension Acquired hypothyroidism Unspecified hypothyroidism Osteoarthritis of knee, unspecified laterality, unspecified osteoarthritis type documented in this encounter [facility] [place] [facility]* Diagnosis Paroxysmal atrial fibrillation (HCC)- Primary Atrial fibrillation Hypertension, essential Unspecified essential hypertension Acquired hypothyroidism Unspecified hypothyroidism Osteoarthritis of knee, unspecified laterality, unspecified osteoarthritis type documented in this encounter [facility] [place] [facility]* Diagnosis Wellness examination- Primary Advanced directives, [...] health care facility documented in this encounter [facility] [place] [facility]* Diagnosis Hypertension, essential- Primary Unspecified essential hypertension Paroxysmal atrial fibrillation (HCC) Atrial fibrillation documented in this encounter [facility] [place] [facility]* Diagnosis Persistent atrial fibrillation (HCC)- Primary Atrial fibrillation Hypertension, essential Unspecified essential hypertension Sepsis, due to unspecified organism, unspecified whether acute organ dysfunction present (HCC) Acute respiratory failure with hypoxia (HCC) Acute respiratory failure Acute lower UTI Urinary tract infection, site not specified Acute heart failure with mildly reduced ejection fraction (HFmrEF, 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 note* Diagnosis Encounter for counseling regarding advance directives- Primary Screening for depression Encounter for screening examination for other mental health and behavioral disorders Generalized weakness Other malaise and fatigue Acquired hypothyroidism Unspecified hypothyroidism Mixed hyperlipidemia Hypertension, essential Unspecified essential hypertension manager terminal (current) use of anticoagulants Long-term (current) use of anticoagulants Persistent atrial fibrillation (HCC) Atrial fibrillation Screening for deficiency anemia Screening for other and unspecified deficiency anemia Primary osteoarthritis involving multiple joints Medicare annual wellness visit, subsequent Routine general medical examination at a health care facility documented in this encounter [facility] note* Diagnosis Onset Date Resolution Status Admit Date Abnormal CXR acute November 05, 2 025 10:58am QUACH (dyspnea on exertion) acute November 05, 2024 10:58am [facility] Work Phone: Evaluation note* Diagnosis QUACH (dyspnea on exertion)- Primary Other dyspnea and respiratory abnormality [facility] Discharge instructionsAdditional Instructions Antibiotics as directed. Return with fever, increased redness of right lower extremity, new or worsening symptoms. Follow-up with pulmonology as soon as possible.[facility] Work Phone: Reason for referral (narrative)No reason for referral information availableWAdena Health System Work Phone: Summary Purpose Family History Relationship Condition Age at Onset Recorded Date/T [place] mother Diabetes mellitus Unknown sister Diabetes mellitus Unknown brother Malignant neoplasm Unknown Cardiac disease Unknown Advance Directives Advance Directive Response Recorded Date/ Time Living Will Yes June 11, 2024 11:00pm Power of Dramatic Coach Yes June 11 11:00pm Name of Medical Power of Dramatic Coach Benjamín - son June 11, 2024 11:00pm Advance Directive Response Recorded Date/ Time Do you have a Healthcare Power of Dramatic Coach? No October 22, 2024 4:12pm Chief Complaint [...] QUACH (dyspnea on exertion) November 05 10:58am Chief Complaint Admit Date SOB, Edema October 22, 2024 2:53 pm Hospital November 05, 2024 10:5 8am E ORDER November 05, 2024 1:06 pm R06.09 - Other forms of dyspnea November 092024 9:18am Additional Source Comments INFORMATION SOURCE (unrecogn ized section and content) DATE CREATED AUTHOR 03/22/2018 [facility] DATE CREATED AUTHOR AUTHOR'S ORGANIZ ATION 10/02/[address] [facility] DATE CREATED AUTHOR AUTHOR'S ORGANIZ ATION 11/09/2024 [facility] DATE CREATED AUTHOR AUTHOR'S ORGANIZ ATION 11/10/2024 [facility] Goals (unrecognized section and content) Goals [...] or prosecute any alcohol or drug abuse patient.[facility] HealthIn the event this information is protected by the Federal Confidentiality of Alcohol and Drug Abuse Patient Records regulations: The Federal rules restrict any use of the information to criminally investigate or prosecute any alcohol or drug abuse patient.[facility] HealthIn the event this information is protected by the Federal Confidentiality of Alcohol and Drug Abuse Patient Records regulations: The Federal rules restrict any use of the information to criminally investigate or prosecute any alcohol or drug abuse patient.[facility] HealthIn the event this information is protected by the Federal Confidentiality of Alcohol and Drug Abuse Patient Records regulations: The Federal rules restrict any use of the information to criminally investigate or prosecute any alcohol or drug abuse patient.[facility] HealthIn the event this information is protected by the Federal Confidentiality of Alcohol and Drug Abuse Patient Records regulations: The Federal rules restrict any use of the information to criminally investigate or prosecute any alcohol or drug abuse patient.[facility] HealthIn the event this information is protected by the Federal Confidentiality of Alcohol and Drug Abuse Patient Records regulations: The Federal rules restrict any use of the information to criminally investigate or prosecute any alcohol or drug abuse patient.[facility] HealthIn the event this information is protected by the Federal Confidentiality of Alcohol and Drug Abuse Patient Records regulations: The Federal rules restrict any use of the information to criminally investigate or prosecute any alcohol or drug abuse patient.[facility] HealthIn the event this information is protected by the Federal Confidentiality of Alcohol and Drug Abuse Patient Records regulations: The Federal rules restrict any use of the information to criminally investigate or prosecute any alcohol or drug abuse patient.[facility] HealthIn the event this information is protected by the Federal Confidentiality of Alcohol and Drug Abuse Patient Records regulations: The Federal rules restrict any use of the information to criminally investigate or prosecute any alcohol or drug abuse patient.[facility] HealthIn the event this information is protected by the Federal Confidentiality of Alcohol and Drug Abuse Patient Records regulations: The Federal rules restrict any use of the information to criminally investigate or prosecute any alcohol or drug abuse patient.[facility] HealthIn the event this information is protected by the Federal Confidentiality of Alcohol and Drug Abuse Patient Records regulations: The Federal rules restrict any use of the information to criminally investigate or prosecute any alcohol or drug abuse patient.[facility] HealthIn the event this information is protected by the Federal Confidentiality of Alcohol and Drug Abuse Patient Records regulations: The Federal rules restrict any use of the information to criminally investigate or prosecute any alcohol or drug abuse patient.[facility] HealthIn the event this information is protected by the Federal Confidentiality of Alcohol and Drug Abuse Patient Records regulations: The Federal rules restrict any use of the information to criminally investigate or prosecute any alcohol or drug abuse patient.[facility] HealthIn the event this information is protected by the Federal Confidentiality of Alcohol and Drug Abuse Patient Records regulations: The Federal rules restrict any use of the information to criminally investigate or prosecute any alcohol or drug abuse patient.[facility] HealthIn the event this information is protected by the Federal Confidentiality of Alcohol and Drug Abuse Patient Records regulations: The Federal rules restrict any use of the information to criminally investigate or prosecute any alcohol or drug abuse patient.[facility] HealthIn the event this information is protected by the Federal Confidentiality of Alcohol and Drug Abuse Patient Records regulations: The Federal rules restrict any use of the information to criminally investigate or prosecute any alcohol or drug abuse patient.[facility] HealthIn the event this information is protected by the Federal Confidentiality of Alcohol and Drug Abuse Patient Records regulations: The Federal rules restrict any use of the information to criminally investigate or prosecute any alcohol or drug abuse patient.[facility] HealthIn the event this information is protected by the Federal Confidentiality of Alcohol and Drug Abuse Patient Records regulations: The Federal rules restrict any use of the information to criminally investigate or prosecute any alcohol or drug abuse patient.[facility] HealthIn the event this information is protected by the Federal Confidentiality of Alcohol and Drug Abuse Patient Records regulations: The Federal rules restrict any use of the information to criminally investigate or prosecute any alcohol or drug abuse patient.[facility] HealthIn the event this information is protected by the Federal Confidentiality of Alcohol and Drug Abuse Patient Records regulations: The Federal rules restrict any use of the information to criminally investigate or prosecute any alcohol or drug abuse patient.[facility] HealthIn the event this information is protected by the Federal Confidentiality of Alcohol and Drug Abuse Patient Records regulations: The Federal rules restrict any use of the information to criminally investigate or prosecute any alcohol or drug abuse patient.[facility] Reason for Visit (unrecogniz ed section and content) Reason Comments 6 Month Exam Reason Comments Population Health Navigation Outreach Reason Comments Medicare Wellness Exam Reason Comments Refill Request Reason Comments Transition Of Care Reason Comments Follow Up Reason Onset 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/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 Reason Comments Patient Update Reason Comments Orders Care Teams (unrecognized sec tion and content) Irradiated Fuel Handler Relationship Specialty Start Date End Date Kodak Harding MD [address] [place] [address] PCP - General Family Medicine 04/15/22 Irradiated Fuel Handler Relationship Specialty Start Date End Date Kodak Harding MD [address] [place] [address] PCP - General Family Medicine 04/15/22 Irradiated Fuel Handler Relationship Specialty Start Date End Date Kodak Harding MD [address] [place] [address] PCP - General Family Medicine 04/15/22 Irradiated Fuel Handler Relationship Specialty Start Date End Date Kodak Harding MD [address] [place] [address] PCP - General Family Medicine 04/15/22 Irradiated Fuel Handler Relationship Specialty Start Date End Date Kodak Harding MD [address] [place] [address] PCP - General Family Medicine 04/15/22 Irradiated Fuel Handler Relationship Specialty Start Date End Date Kodak Harding MD [address] [place] [address] PCP - General Family Medicine 04/15/22 Irradiated Fuel Handler Relationship Specialty Start Date End Date Kodak Harding MD [address] [place] [address] PCP - General Family Medicine 04/15/22 Arcelia Weber, knot borer Transfill Technician 06/18/24 Irradiated Fuel Handler Relationship Specialty Start Date End Date Kodak Harding MD [address] [place] [address] PCP - General Family Medicine 04/15/22 Arcelia Weber, knot borer Transfill Technician 06/18/24 Irradiated Fuel Handler Relationship Specialty Start Date End Date Kodak Harding MD [address] [place] [address] PCP - General Family Medicine 04/15/22 Arcelia Weber, knot borer Transfill Technician 06/18/24 Irradiated Fuel Handler Relationship Specialty Start Date End Date Kodak Harding MD [address] [place] [address] PCP - General Family Medicine 04/15/22 Arcelia Weber, knot borer Transfill Technician 06/18/24 07/05/24 Team Status: Active Member Role [...] Other Provider Active Start: June 15, 2024 Irradiated Fuel Handler Relationship Specialty Start Date End Date Kodak Harding MD [address] [place] [address] PCP - General Family Medicine 04/15/22 Irradiated Fuel Handler Relationship Specialty Start Date End Date Kodak Harding MD [address] [place] [address] PCP - General Family Medicine 04/15/22 Team [...] October 22, 2024 End: October 22, 2024 Irradiated Fuel Handler Relationship Specialty Start Date End Date Kodak Harding MD [address] [place] [address] PCP - General Family Medicine 04/15/22 Irradiated Fuel Handler Relationship Specialty Start Date End Date Kodak Harding MD [address] [place], [place] [id number] PCP - [facility] 04/15/22 Irradiated Fuel Handler Relationship Specialty Start Date End Date Kodak Harding MD [address] [place], [place] [address] PCP - [facility] 04/15/22 Team Status: Inactive Member Role/Relationship Status [...] November 05, 2024 End: November 05, 2024 Irradiated Fuel Handler Relationship Specialty Start Date End Date Kodak Harding MD [address] [place] [address] PCP - General Family Medicine 04/15/22 Team Status: Active Member Role/Relationship Status Dates Dr. Donovan Nice DO Primary Care Provider Active Team Status: Inactive Member Role/Relationship Status Dates Dr. Kodak Harding MD Primary Care Provider Active Start: November 05, 2024 End: November 05, 2024 Dr. Tamir Cardoso DO Attending Provider Active S tart: November 05, 2024 End: November 05, 2024 Dr. Tamir Cardoso DO Referring Provider Active S tart: November 05, 2024 End: November 05, 2024 Team Status: Active Member Role/Relationship Status Dates Dr. Tamir Cardoso DO Attending Provider Active S tart: November 09, 2024 Dr. Tmair Cardoso DO Referring Provider Active S tart: November 09, 2024 Dr. Donovan Nice DO Primary Care Provider Active Start: November 09, 2024 FOR RECORDS PERTAINING TO PATIENTS WHO ARE [...] BE BASED ON THE PRIMARY CLINICAL RECORDS. [facility] [employer] [facility]. provides no warranty or guarantee of the accuracy or completeness of information in this document.
[2024-11-13 08:58] LABS: Hematocrit 42.4 % (37-47); Hemoglobin 13.7 g/dL (12.0-15.0); Mean Corp Hgb Conc 32.3 g/dL (32-36); Mean Corpuscular Volume 102.2 fL (81-99); Mean Platelet Vol. 9.7 fl (6.2-12.0); Platelet Count 227 K/mm3 (150-450); RBC Distribution Width CV 13.7 % (11.6-14.6); RBC Distribution Width SD 52.1 fl (35.1-43.9); Red Blood Count 4.15 M/mm3 (4.2-5.4); White Blood Count 9.9 K/mm3 (4.4-11.0)
[2024-11-13 09:53] LABS: Albumin, Serum 3.2 g/dL (3.4-4.8); Alkaline Phosphatase 72 U/L (35-104); Chloride 97 mmol/L (98-108); Potassium 4.7 mmol/L (3.3-5.1)
[2024-11-13 11:49] LABS: AST(SGOT) 21 U/L (<=31); Alanine Aminotransfer ALT/SGPT 21 U/L (<=34); Anion Gap 11 (5-15); BUN 45 mg/dL (4-19); BUN/Creat Ratio 38.2 RATIO (10-20); Calcium,Total 9.8 mg/dL (7.6-11.0); Carbon Dioxide 25.7 mmol/L (21.0-32.0); Globulin 3.6 g/dL (2.2-4.2); Glucose 87 mg/dL (70-99); Pro- Brain NATRIURETIC PEPTIDE 5041 pg/mL (<=1800); T4 Total, Thyroxin 5.7 ug/dL (4.8-13.9); Uric Acid 6.5 mg/dL (2.6-6.0)
== END ==
LOC: OLS.SW 04:00
PROVIDERS: Referring Provider Family Medicine; Visit Provider Family Medicine
DX: E03.9 Hypothyroidism, unspecified (principal)
CPT/HCPCS: 36415; 80053; 83880; 84436; 84443; 84550; 85027

== ENCOUNTER → 2024-11-21 | Outpatient (CLI) | payer MEDICARE, SELFPAY ==
--- NOTE | 2024-11-21 15:48 | CT_ITS ---
PROCEDURE: CHEST WITHOUT CONTRAST 11/21/2024 REASON FOR EXAM: QUACH TECHNIQUE: Chest CT without contrast. Coronal and Sagittal reconstruction series were provided. One or more dose reduction techniques were used (e.g., Automated exposure control, adjustment of the mA and/or kV according to patient size, use of iterative reconstruction technique RADIATION DOSE SUMMARY: CTDlvol: 9.26 mGy DLP: 305.57 mGycm COMPARISON: Prior chest radiograph dated June 11, 2024. FINDINGS: Hardware: None Lymph nodes: Scattered mediastinal lymph nodes. The largest lymph node is in the region of the aorto pulmonary window and measures 2 point 4 cm. Heart and Vasculature: Cardiomegaly. Atherosclerotic calcifications of the thoracic aorta. Thoracic aorta and pulmonary arteries have normal contours; noncontrast technique limits evaluation. Coronary Artery Calcifications: Present Lungs and Airways: Diffuse increased interstitial markings with small bullous changes in the upper lobe on the right side with sub pleural cystic changes suggestive of chronic interstitial fibrosis. Pleura: No evidence of pleural effusion. Upper Abdomen: Calcification of the abdominal aorta and the major visceral branches. Bones: Degenerative changes of the thoracic spine. CT/Chest without Contrast IMPRESSION: Coronary artery calcification (CAC) is is present. Cardiomegaly. 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 Prominence of the mediastinal lymph nodes. Reading Location: [place] [id number]
== END | disposition home or self-care (01) ==
LOC: CT 15:47
PROVIDERS: Referring Provider Internal Medicine Critical Care Medicine; Visit Provider Internal Medicine Critical Care Medicine
DX: R06.09 Other forms of dyspnea (principal); R91.8 Other nonspecific abnormal finding of lung field
CPT/HCPCS: 71250

== ENCOUNTER → 2024-11-23 | Outpatient (CLI) | payer MEDICARE, SELFPAY ==
--- NOTE | 2024-11-23 13:51 | ECHOD_ITS ---
Reason For Study Reason For Study: DYSPNEA Procedure This was a 2D Doppler, Color Flow transthoracic echocardiogram. The patient was scanned supine. Exam performed in department. Left Ventricle Normal LV size. D shaped septum in systole and diastole. Left ventricular systolic function is lower limits of normal. The estimated ejection fraction is 53 %. No regional wall motion abnormalities noted. Right Ventricle Normal RV size. Normal systolic function. Atria The left atrium is severely enlarged. The right atrium is severely enlarged. Mitral Valve There is moderate mitral annular calcification. 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 Tricuspid Valve Normal tricuspid valve. Moderately severe (3+) tricuspid valve insufficiency. Pulmonary artery systolic pressure is 78 mmHg. Severe pulmonary hypertension. Aortic Valve Trisinus/trileaflet aortic valve. Mild focal aortic valve calcification. Mild (1+) eccentric aortic valve insufficiency. Pulmonic Valve Normal pulmonic valve. Great Vessels Normal aortic root. The pulmonary artery is normal size. The inferior vena cava is dilated. and does not collapse. Pericardium/Pleural No pericardial effusion. MMode/2D Measurements & Calculations LVIDd: 3.7 cm IVSd: 1.2 cm LVOT diam: 1.9 cm LVIDs: 2.3 cm LVPWd: 1.2 cm LVOT area: 2.8 cm2 RVDd: 4.3 cm FS: 38.7 % asc Aorta Diam: 3.1 cm LAV(MOD-bp): 127.9 ml LVAd ap4: 13.0 cm2 LAV(MOD-bp) Indexed: 72.0 ml/m2 LVLd ap4: 5.4 cm LAV(MOD-sp2): 156.1 ml EDV(MOD-sp4): 25.3 ml LAV(MOD-sp4): 104.3 ml EDV(sp4-el): 26.4 ml LVAs ap4: 8.0 cm2 LVLs ap4: 4.7 cm ESV(MOD-sp4): 12.0 ml ESV(sp4-el): 11.5 ml EF(MOD-sp4): 52.3 % EF(sp4-el): 56.6 % LVAd ap2: 18.7 cm2 SV(MOD-sp4): 13.2 ml SV(MOD-sp2): 25.5 ml LVLd ap2: 6.0 cm SI(MOD-sp4): 7.5 ml/m2 SI(MOD-sp2): 14.4 ml/m2 EDV(MOD-sp2): 48.3 ml EDV(sp2-el): 49.5 ml LVAs ap2: 11.7 cm2 LVLs ap2: 5.2 cm ESV(MOD-sp2): 22.8 ml ESV(sp2-el): 22.4 ml EF(MOD-sp2): 52.8 % SV(sp4-el): 14.9 ml Ao sinus diam: 2.[address] Junction: 2.5 cm LA dimension(2D): 5.3 cm LA A4 area: 31.4 cm2 RA A4 area: 27.5 cm2 TAPSE: 1.6 cm Time Measurements MV dec time: 0.17 sec Doppler Measurements & Calculations MV E max vilma: 70.1 cm/sec Ao V2 max: 168.4 cm/sec AI max vilma: 411.0 cm/sec Ao max P.4 mmHg AI max P.6 mmHg Ao V2 mean: 119.9 cm/sec AI dec slope: 153.9 cm/sec2 Ao mean P.6 mmHg AI P1/2t: 782.0 msec Ao V2 VTI: 31.1 cm AV (velocity ratio): 0.55 ARTURO(I,D): 1.5 cm2 ARTURO(V,D): 1.7 cm2 LV V1 max: 102.6 cm/sec SV(LVOT): 47.2 ml PA V2 max: 69.6 cm/sec LV V1 max P.2 mmHg LV V1 mean P.7 mmHg LV V1 mean: 78.9 cm/sec LV V1 VTI: 17.0 cm TR max vilma: 415.8 cm/sec TR max P.2 mmHg ECHO/Echo Complete Interpretation Summary Normal LV size. The estimated ejection fraction is 53 %. Left ventricular systolic function is lower limits of normal. 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 Pulmonary artery systolic pressure is 78 mmHg. Severe pulmonary hypertension. Biatrial enlargement. Ordering Physician: Tamir Cardoso Referring Physician: BARNEY RUSSELL Performed By: Opal Leal RDCS
== END | disposition home or self-care (01) ==
PROVIDERS: Referring Provider Internal Medicine Critical Care Medicine; Visit Provider Internal Medicine Critical Care Medicine
DX: R06.09 Other forms of dyspnea (principal); R93.89 Abnormal findings on diagnostic imaging of other specified body structures
CPT/HCPCS: 93306

== ENCOUNTER → 2024-12-18 | Outpatient (CLI) | payer MEDICARE, SELFPAY | END | disposition home or self-care (01) | PROVIDERS: Referring Provider Nurse Practitioner Acute Care; Visit Provider Nurse Practitioner Acute Care | DX: I27.20 Pulmonary hypertension, unspecified (principal) | CPT/HCPCS: 94762 ==

== ENCOUNTER 2025-01-01 19:30 | Emergency (ER) | payer MEDICARE, SELFPAY ==
[2025-01-01 19:30] VITALS: BP 126/79; PULSE 97; RESP 18; TEMP 36.8; O2SAT 95; BMI 27.6
[2025-01-01] MEDS: Mixture 30 ML Bottle TOPICAL (21:23)
[2025-01-01 21:30] VITALS: BP 108/85; PULSE 89; RESP 18; O2SAT 96
--- OUTSIDE RECORDS SUMMARY | 2025-01-01 21:48 | XMS RPT_ITS | CCD ---
Author Organization [facility] Care Team Providers Care Mortgage Loan Counselor Name Role Phone Kodak Harding Unavailable Unavailable Unavailable Primary Care Provider Unavailkatie Harding MD, Kodak Sánchez Primary Care Provider Mehdi CARRANZA, Kodak Sánchez Primary Care Provider Mehdi CARRANZA, Kodak Sánchez Primary Care Provider Kanwal RN, Arcelia Unavailable Unavailable Kanwal RN, Arcelia Unavailable Unavailable Mehdi CARRANZA, Dr. Clifford Primary Care Provider Dr. Bob Liu DO [...] Referring Provider Jeyson Mayer MD Emergency Provider [phone] Jeyson Mayer MD Attending Provider [phone] Kodak Hardnig MD Referring Provider [phone] Dr. Tamir Cardoso DO Attending Provider [phone] KODAK HARDING Attending Unavailab le MEHDI, KODAKLATA SÁNCHEZ Primary Care Unavailab le MEHDI, KODAK SÁNCHEZ Attending Unavailab le MEHDI, KODAKLATA SÁNCHEZ Primary Care Unavailab le MEHDI, KODAK SÁNCHEZ Attending Unavailab le MEHDI, KODAK SÁNCHEZ Primary Care Unavailab le MEHDI, KODAK SÁNCHEZ Attending Unavailab le MEHDI, KODAK SÁNCHEZ Primary Care Unavailab Dr. Tamir Saenz DO Referring Provider [phone] Dr. Donovan Nice DO Primary Care Provider Tex CARRANZA, Dr. Man Attending Provider Unavail able Dr. Donovan Nice MD Referring Provider Unavail able Susy CARRANZA, Dr. Loera Attending Provider Noelle PROFESSOR OF HISTORY-CEdyta Attending Provider Liana Cardosok Referring Unavailable aTmir Cardoso Attending Unavailable Medhi, Kodak Primary Care Unavailable Nice, Donovan Primary Care Unavailable Brown, Tamir Referring Unavailable BrownLianak Attending Unavailable Aster Ramsey Attending Unavailable Mehdi, Kodak Primary Care Unavailable Benitez, Mio Consulting Unavailable Benitez, Mio Admitting Unavailable Benitez, Mio Referring Unavailable Junaid Travis Consulting Unavailable Aster Ramsey Consulting Unavailable Nice, Donovan Primary Care Unavailable Evaristo Jain Attending Unavailable Demetrius Terrell Attending Unavailable Mehdi, Kodak Primary Care Unavailable Nice, Donovan Primary Care Unavailable Edyta Drake Attending Unavailable Mehdi, Kodak Referring Unavailable Brown, Tamir Attending Unavailable Mehdi, Kodak Primary Care Unavailable Mehdi, Kodak Referring Unavailable Mehdi, Kodak Primary Care Unavailable Benitez, Mio Admitting Unavailable Benitez, Mio Referring Unavailable Benitez, Mio Attending Unavailable Benitez, Mio Consulting Unavailable Junaid Travis Attending Unavailable Nice, Donovan Primary Care Unavailable Brown, Tamir Attending Unavailable Brown, Tamir Referring Unavailable Reodicnaveed Jeyson Referring Unavailable ReodicJeyson lloyd Attending Unavailable Mehdi, Kodak Primary Care Unavailable Donovan Nice Primary Care Unavailable Donovan Mesa Referring Unavailable Donovan Mesa Attending Unavailable Donovan Nice Primary Care Unavailable Edyta Drake Referring Unavailable Edyta Drake Attending Unavailable Kodak Harding Primary Care Unavailable Mio Benitez Admitting Unavailable Mio Benitez Referring Unavailable Mio Benitez Consulting Unavailable Aster Ramsey Attending Unavailable Junaid Travis Consulting Unavailable Donovan Nice [facility] Care Unavailable Tamir Cardoso Attending Unavailable Tamir Cardoso Referring Unavailable Allergies Allergy Classification Reported Allergen(s) Allergy Type Date of Onset Reaction(s) Facility (4 sources) Cigarette Smoke; Translations: [CIGARETTE SMOKE] Drug Allergy 09-03-2020 Other: See Comments [facility] Medications Current Medications Medication Drug Class(es) Dates Sig (Normalized) Sig (Original) apixaban 5 mg oral tablet (20 sources) Factor Xa Inhibitor Start: 06-15-2024 End: 10-30-2025 take 1 tablet by mouth twice daily Apixaban (Eliquis) 5 mg Tablet Active 5 mg PO TWICE A DAY 30 0 June 15, 2024 1:00am ascorbic acid 1000 mg oral capsule (6 sources) Vitamin C Start: 11-05-2024 take 1 capsule by mouth once daily Ascorbic Acid (Vitamin C) 1,000 mg capsule Active 1000 mg PO daily November 05, 2024 12:00am furosemide 20 mg oral tablet (20 sources) Loop Diuretic Start: 10-22-2024 take 1 tablet by mouth once daily Furosemide 20 mg Tablet Active 20 mg PO DAILY October 22, 2024 12:00am Start: 06-27-2024 End: 06-27-2024 take 1 tablet by mouth once daily Furosemide 20 mg Tablet Active 20 mg PO DAILY October 22, 2024 12:00am Start: 06-15-2024 End: 10-22-2024 take 1 tablet [...] Take 1 tablet by bree once daily. levothyroxine sodium 0.125 mg oral [...] ug PO DAILY October 22, 2024 12:00am Comment on above: Take 1 tablet by bree once daily. mecobalamin (6 sources) Start: 11-05-2024 Mecobalamin (Vitamin B12) 2,500 mcg tablet,chewable Active ug PO November 05, 2024 12:00am Multivitamin tablet (6 sources) Start: 11-05-2024 Multivitamin tablet Active 1 {tbl} PO EVERY MORNING November 05, 2024 12:00am fa-ru-TY-vit Q-bqoux-cdb-coQ10 (DAILY MULTIVITAMIN) 200-100-500 mcg cap (20 sources) Start: 08-30-2019 take 1 capsule by mouth once daily nz-sy-NJ-vit Y-bette-kjt-coQ10 (DAILY MULTIVITAMIN) 200-100-500 mcg cap Take 1 capsule by mouth once daily. 08/30/2019 Active Start: 08-30-2019 [facility] cy-nr-YG-vit L-awmff-pnu-coQ10 (DAILY MULTIVITAMIN) 200-100-500 mcg cap Take 1 capsule by mouth once daily. 0 08/30/2019 Active Comment on above: Take 1 capsule [facility] nebivolol 5 mg oral tablet (20 sources) Start: 02-23-2021 End: 06-27-2024 take 1 tablet by mouth once daily Nebivolol (Bystolic) 5 mg tablet Active 5 mg PO DAILY June 12, 2024 1:00am blood pressure Comment on above: Take 1 tablet by bree once daily. Turmeric extract (6 sources) Start: 11-05-2024 Turmeric 400 mg capsule [...] daily at bedtime. 180 tablet 3 03/19/2024 11/27/2024 Discontinued Comment on above: [facility] 2 tablets [facility] Completed/Discontinued Medications Medication Drug Class(es) Dates Sig (Normalized) Sig (Original) amoxicillin 875 mg / clavulanate 125 mg oral tablet (7 sources) Penicillin-class Antibacterial Start: 10-22-2024 End: 11-05-2024 take 1 tablet by mouth every twelve hours Amoxicillin-Pot Clavulanate 875-125 mg tablet Discontinued 875 mg PO Q12H 14 7 0 October 22, 2024 12:00am November 05, 2024 11:10am aspirin 325 mg oral tablet (19 sources) Platelet Aggregation Inhibitor, Nonsteroidal Anti-inflammatory Drug [...] once daily. cephalexin 500 mg oral capsule (8 sources) Cephalosporin Antibacterial Start: End: take 1 [...] failure] 06-27-2024 Chronic Disorders of lipid metabolism (15 sources) Pure hypercholesterolemia ; Translations: [Pure hypercholesterolemia , unspecified] Onset: 09-26-2023 09-26-2023 Chronic Essential hypertension (20 sources) Essential hypertension; Translations: [Essential (primary) hypertension] Onset: 02-25-2017 Chronic Malaise and fatigue (2 sources) Asthenia; Translations: [Weakness] Onset: 09-17-2024 09-17-2024 Episodic Osteoarthritis (20 sources) Osteoarthritis of knee; Translations: [Osteoarthritis of knee, unspecified] Onset: 09-01-2017 Chronic Other aftercare (3 sources) Long-term current use of anticoagulant; Translations: [longterm (current) use of anticoagulants] 06-27-2024 Episodic Other aftercare (1 source) 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; Translations: [longterm (current) use of anticoagulants] Onset: 09-17-2024 Episodic Other and unspecified benign neoplasm (18 sources) Intracranial meningioma; Translations: [Benign neoplasm of cerebral meninges] Onset: 06-15-2024 06-11-2024 Chronic Other and unspecified benign neoplasm (1 source) Benign neoplasm of cerebral meninges; Translations: [Benign neoplasm of cerebral meninges] Onset: 06-18-2024 Chronic Other lower respiratory disease (7 sources) Fibrosis of lung; Translations: [Pulmonary fibrosis, unspecified] 10-22-2024 Chronic Other lower respiratory disease (7 sources) Dyspnea; Translations: [Shortness of breath] 10-22-2024 Episodic Other lower respiratory disease (13 sources) Dyspnea on exertion; Translations: [Other forms of dyspnea] 11-05-2024 Episodic Other lower respiratory disease (1 source) Other forms of dyspnea; Translations: [Other forms of dyspnea] Onset: 12-03-2024 Episodic Other lower respiratory disease (1 source) Shortness of breath; Translations: [Shortness of breath] Onset: 12-05-2024 Episodic Other screening for suspected conditions (not mental disorders or infectious disease) (13 sources) Abnormal findings on diagnostic imaging of other specified body structures; Translations: [Abnormal chest x-ray] Onset: 11-05-2024 11-05-2024 Chronic Pulmonary heart disease (3 sources) Pulmonary hypertension; Translations: [Pulmonary hypertension, unspecified] Onset: 12-20-2024 12-05-2024 Chronic Comment on above: RVSP 78 mmHg Residual codes; unclassified (7 sources) Peripheral edema; Translations: [Localized edema] 10-22-2024 Episodic Respiratory failure; insufficiency; arrest (adult) (1 source) Acute respiratory failure; Translations: [Acute respiratory failure with hypoxia] 06-27-2024 Episodic Screening and history of mental health and substance abuse codes (2 sources) Encounter for screening for depression; Translations: [Encounter for screening examination for other mental health and behavioral disorders] Onset: 09-17-2024 Episodic Skin and subcutaneous tissue infections (7 sources) Cellulitis of right lower limb; Translations: [Cellulitis of right lower limb] 10-22-2024 Episodic Thyroid disorders (20 sources) Acquired hypothyroidism; Translations: [Hypothyroidism, unspecified] Onset: 02-25-2017 Chronic Unclassified (1 source) Unknown / UNK(Unknown) Onset: 03-06-2018 Unclassified (1 source) Other persistent atrial fibrillation; Translations: [Persistent atrial fibrillation (HCC)] Onset: 03-22-2022 Unclassified (1 source) 6 Month Exam Onset: 03-19-2024 Urinary tract infections (12 sources) Acute lower urinary tract infection; Translations: [Urinary tract infection, site not specified] Onset: 06-18-2024 06-27-2024 Episodic Past or Other Problems Problem Classification Problem Date Documented Da te Episodic/Chronic Other screening for suspected conditions (not mental disorders or infectious disease) (12 sources) Raised cardiac enzyme or marker; Translations: [Other specified abnormal findings of blood chemistry] Onset: 06-18-2024 06-11-2024 Episodic Septicemia (except in labor) (11 sources) Sepsis; Translations: [Sepsis, unspecified organism] Onset: 06-18-2024 06-27-2024 Episodic Unclassified (1 source) E03.9 Onset: 03-06-2018 Results Test Name Value Interpretation Reference Range Facility Pulmonary Visit Reporton Pulmonary Visit Report [facility] [address] [place] [address] OFFICE VISIT Date of Service: 12/05/24 MR#: [id number] Acct: [id number] Name: ESTEBAN WOODS Rep #: [id number] : 1935 Provider: ADRIANA Drake Age/Sex: 89/F Location: [facility].PMW Status: Signed Assessment and Plan Assessment and Plan (1) Pulmonary hypertension: Status: Acute Comment: RVSP 78 mmHg Plan: Newly identified on recent echocardiogram. I suggested that the patient would benefit from a 6- minute walk test, however the sons report that the patient does not ambulate very much. She does report feeling short of breath on awakening in the morning. I am going to perform an overnight oximetry on room air to determine if the patient is experiencing nocturnal hypoxia. I suspect this will identify the need for supplemental oxygen, and if it does I will order supplemental oxygen. Return to the office in 6 weeks to evaluate her response to therapy change. I offered to refer the patient to a pulmonary hypertension clinic in [place]. The patient's sons do not believe that it would be beneficial and really gain anything. We can readdress this at the follow-up visit. (2) Atrial fibrillation: Status: Chronic Qualifiers: Atrial fibrillation type: persistent (not longstanding) Qualified Code(s): I48.19 - Other persistent atrial fibrillation Plan: Complicates exam, plan, care and prognosis. This could be contributing to the patient's shortness of breath on exertion. She does not appear to be tachycardic today. (3) QUACH (dyspnea on exertion): Status: Chronic Plan: Of unclear etiology, however most likely multifactorial. She does have known pulmonary hypertension and chronic atrial fibrillation. CT of the chest is consistent with interstitial lung disease. This could be contributing to his shortness of breath. I also believe there is most likely an element of deconditioning here. We will try to optimize her by placing her on supplemental oxygen and reevaluate her symptoms. (4) Pulmonary fibrosis: Status: Chronic Plan: CT of the chest is consistent with chronic interstitial scarring. This is of unclear etiology. We are evaluating the patient for the need for supplemental oxygen. She is on diuretics. We could c onsider evaluating for an autoimmune disease. Follow-up in 6 weeks. (5) Hard of hearing: Status: Chronic Plan: She has hard of hearing despite wearing hearing aids. I had to speak very loudly and repeat myself multiple times before I was able to confirm that the patient understood what I was saying. Orders: Orders OutPt Pulse Ox/Cont Overnight Today I27.20 - Pulmonary hypertension, unspecified Plan Details Additional Comments: This note was generated with Public[employer] software. It may contain incorrect words, spelling, and punctuation that were not noted in checking the note before signing. I have spent 41 minutes today reviewing labs, records and history. Time includes coordinating care, interpretation of tests. This also includes time I spent with the patient for exam, treatment plan and education as well as documenting clinical information. Follow Up: 6 Weeks HPI 1 M FU Chief Complaint: Test results HPI Comments Details: This patient presents to the office today for follow-up of her shortness of breath and to discuss test results. She is in a wheelchair and on room air. She is accompanied today by 2 sons. She has not recently been seen in the ED or urgent care for any respiratory illness. She has not required any antibiotics or prednisone for any breathing problems. She is a lifelong never smoker. She is not currently on any maintenance inhaler. She is not currently on albuterol. She denies any difficulty with shortness of breath. She reports that she is about due for an episode as she relates some shortness of breath to anxiety. The sons report that she is short of breath on exertion and is exerted more easily all the time. They also report that her shortness of breath seems to be more problematic first thing in the morning and makes it very difficult to get out of bed. She does not ambulate very far. Over the past few weeks she has stopped ambulating 40 feet to the dining room at the assisted living facility. She denies any cough, sputum production or hemoptysis. She denies any wheezing, chest tightness, chest pain or palpitations. She denies any fever, chills or body aches. Test results personally reviewed with the patient: Chest CT without contrast completed on November 21, 2024. Impression is consistent with chronic interstitial scarring with bullous changes. Prominence of mediastinal lymph nodes. Echocardiogram completed on November 23, 2024. EF 53%. Pulmonary artery systolic pressure 78 mmHg. Intake Vital Signs 11/05/24 07:15 12/05/24 (more content not included)... Normal [facility] Echo Completeon 11-23-2024 Echo Complete [facility] [address] [place] [address] Echo Complete 11/23/24 1359 MR#: [id number] Acct: [id number] Name: ESTEBAN WOODS Rep #: [id number] : 1935 89 From: Evaristo Jain MD Attending Dr: Dr. Tamir Cardoso, Status: [facility] C Ordering Dr: Tamir Cardoso DO Date: 11/23/24 Location: [facility] Sex: F C Admitted: Reason For Study Reason For Study: DYSPNEA Procedure This was a 2D Doppler, Color Flow transthoracic echocardiogram. The patient was scanned supine. Exam performed in department. Left Ventricle Normal LV size. D shaped septum in systole and diastole. Left ventricular systolic function is lower limits of normal. The estimated ejection fraction is 53 %. No regional wall motion abnormalities noted. Right Ventricle Normal RV size. Normal systolic function. Atria The left atrium is severely enlarged. The right atrium is severely enlarged. Mitral Valve There is moderate mitral annular calcification. 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 Tricuspid Valve Normal tricuspid valve. Moderately severe (3+) tricuspid valve insufficiency. Pulmonary artery systolic pressure is 78 mmHg. Severe pulmonary hypertension. Aortic Valve Trisinus/trileaflet aortic valve. Mild focal aortic valve calcification. Mild (1+) eccentric aortic valve insufficiency. Pulmonic Valve Normal pulmonic valve. Great Vessels Normal aortic root. The pulmonary artery is normal size. The inferior vena cava is dilated. and does not collapse. Pericardium/Pleural No pericardial effusion. MMode/2D Measurements Calculations LVIDd: 3.7 cm IVSd: 1.2 cm LVOT diam: 1.9 cm LVIDs: 2.3 cm LVPWd: 1.2 cm LVOT area: 2.8 cm2 RVDd: 4.3 cm FS: 38.7 % asc Aorta Diam: 3.1 cm LAV(MOD-bp): 127.9 ml LVAd ap4: 13.0 cm2 LAV(MOD-bp) Indexed: 72.0 ml/m2 LVLd ap4: 5.4 cm LAV(MOD-sp2): 156.1 ml EDV(MOD-sp4): 25.3 ml LAV(MOD-sp4): 104.3 ml EDV(sp4-el): 26.4 ml LVAs ap4: 8.0 cm2 LVLs ap4: 4.7 cm ESV(MOD-sp4): 12.0 ml ESV(sp4-el): 11.5 ml EF(MOD-sp4): 52.3 % EF(sp4-el): 56.6 % LVAd ap2: 18.7 cm2 SV(MOD-sp4): 13.2 ml SV(MOD-sp2): 25.5 ml LVLd ap2: 6.0 cm SI(MOD-sp4): 7.5 ml/m2 SI(MOD-sp2): 14.4 ml/m2 EDV(MOD-sp2): 48.3 ml EDV(sp2-el): 49.5 ml LVAs ap2: 11.7 cm2 LVLs ap2: 5.2 cm ESV(MOD-sp2): 22.8 ml ESV(sp2-el): 22.4 ml EF(MOD-sp2): 52.8 % SV(sp4-el): 14.9 ml Ao sinus diam: 2.[address] Junction: 2.5 cm LA dimension(2D): 5.3 cm LA A4 area: 31.4 cm2 RA A4 area: 27.5 cm2 TAPSE: 1.6 cm Time Measurements MV dec time: 0.17 sec Doppler Measurements Calculations MV E max vilma: 70.1 cm/sec Ao V2 max: 168.4 cm/sec AI max vilma: 411.0 cm/sec Ao max P.4 mmHg AI max P.6 mmHg Ao V2 mean: 119.9 cm/sec AI dec slope: 153.9 cm/sec2 Ao mean P.6 mmHg AI P1/2t: 782.0 msec Ao V2 VTI: 31.1 cm AV (velocity ratio): 0.55 ARTURO(I,D): 1.5 cm2 ARTURO(V,D): 1.7 cm2 LV V1 max: 102.6 cm/sec SV(LVOT): 47.2 ml PA V2 max: 69.6 cm/sec LV V1 max P.2 mmHg LV V1 mean P.7 mmHg LV V1 mean: 78.9 cm/sec LV V1 VTI: 17.0 cm TR max vilma: 415.8 cm/sec TR max P.2 mmHg ECHO/Echo Complete Interpretation Summary Normal LV size. The estimated ejection fraction is 53 %. Left ventricular systolic function is lower limits of normal. 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 Pulmonary artery systolic pressure is 78 mmHg. Severe pulmonary hypertension. Biatrial enlargement. Ordering Physician: Tamir Cardoso Referring Physician: DONOVAN NICE Performed By: Opal Leal RDCS 11/23/24 1804 Date Evaristo Jain MD CC: Dr. Tamir Cardoso DO; Dr. 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 [address] [place] [address] Echo Complete 11/23/241358 MR#: [id number] Acct: [id number] Name: ESTEBAN WOODS Rep #:[id number] : 1935 89 From: Evaristo Torres Attending Dr: Dr. Tamir Cardoso DO S tatus: REG CLI Ordering Dr: Tamir Cardoso DO Date: Location: [facility] Sex: F C Admitted: Reason For Study Reason For Study: DYSPNEA Procedure This was a 2D Doppler, Color Flow transthoracic echocardiogram. The patient was scanned supine. Exam performed in department. Left Ventricle Normal LV size. D shaped septum in systole and diastole. Left ventricular systolic function is lower limits of normal. The estimated ejection fraction is 53 %. No regional wall motion abnormalities noted. Right Ventricle Normal RV size. Normal systolic function. Atria The left atrium is severely enlarged. The right atrium is severely enlarged. Mitral Valve There is moderate mitral annular calcification. 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 Tricuspid Valve Normal tricuspid valve. Moderately severe (3+) tricuspid valve insufficiency. Pulmonary artery systolic pressure is 78 mmHg. Severe pulmonary hypertension. Aortic Valve Trisinus/trileaflet aortic valve. Mild focal aortic valve calcification. Mild (1+) eccentric aortic valve insufficiency. Pulmonic Valve Normal pulmonic valve. Great Vessels Normal aortic root. The pulmonary artery is normal size. The inferior vena cava is dilated. and does not collapse. Pericardium/Pleural No pericardial effusion. MMode/2D Measurements & Calculations LVIDd: 3.7 cm IVSd: 1.2 cm LVOT diam: 1.9 cm LVIDs: 2.3 cm LVPWd: 1.2 cm LVOT area: 2.8 cm2 RVDd: 4.3 cm FS: 38.7 % ____ asc Aorta Diam: 3.1 cm LAV(MOD-bp): 127.9 ml LVAd ap4: 13.0 cm2 LAV(MOD-bp) Indexed: 72.0 ml/m2 LVLd ap4: 5.4 cm LAV(MOD-sp2): 156.1 ml EDV(MOD-sp4): 25.3 ml LAV(MOD-sp4): 104.3 ml EDV(sp4-el): 26.4 ml LVAs ap4: 8.0 cm2 LVLs ap4: 4.7 cm ESV(MOD-sp4): 12.0 ml ESV(sp4-el): 11.5 ml EF(MOD-sp4): 52.3 % EF(sp4-el): 56.6 % LVAd ap2: 18.7 cm2 SV(MOD-sp4): 13.2 ml SV(MOD-sp2): 25.5 ml LVLd ap2: 6.0 cm SI(MOD-sp4): 7.5 ml/m2 SI(MOD-sp2): 14.4 ml/m2 EDV(MOD-sp2): 48.3 ml EDV(sp2-el): 49.5 ml LVAs ap2: 11.7 cm2 LVLs ap2: 5.2 cm ESV(MOD-sp2): 22.8 ml ESV(sp2-el): 22.4 ml EF(MOD-sp2): 52.8 % SV(sp4-el): 14.9 ml Ao sinus diam: 2.[address] Junction: 2.5 cm LA dimension(2D): 5.3 cm LA A4 area: 31.4 cm2 RA A4 area: 27.5 cm2 TAPSE: 1.6 cm Time Measurements MV dec time: 0.17 sec Doppler Measurements & Calculations MV E max vilma: 70.1 cm/sec Ao V2 max: 168.4 cm/sec AI max vilma: 411.0 cm/sec Ao max P.4 mmHg AI max P.6 mmHg Ao V2 mean: 119.9 cm/sec AI dec slope: 153.9 cm/sec2 Ao mean P.6 mmHg AI P1/2t: 782.0 msec Ao V2 VTI: 31.1 cm AV (velocity ratio): 0.55 ARTURO(I,D): 1.5 cm2 ARTURO(V,D): 1.7 cm2 LV V1 max: 102.6 cm/sec SV(LVOT): 47.2 ml PA V2 max: 69.6 cm/sec LV V1 max P.2 mmHg LV V1 mean P.7 mmHg LV V1 mean: 78.9 cm/sec LV V1 VTI: 17.0 cm TR max vilma: 415.8 cm/sec TR max P.2 mmHg ECHO/Echo Complete Interpretation Summary Normal LV size. The estimated ejection fraction is 53 %. Left ventricular systolic function is lower limits of normal. 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 Pulmonary artery systolic pressure is 78 mmHg. Severe pulmonary hypertension. Biatrial enlargement. Ordering Physician: Tamir Cardoso Referring Physician: DONOVAN NICE Performed By: Opal Leal RDCS 08/15/25 1804 Date _ Evaristo Jain MD CC: Dr. Tamir Cardoso DO; Dr. Donovan Nice DO ~ Date Dictated: 11/23/24 1359 Date Transcribed: 11/23/241803 Rail Project Engineer: Signed [facility] Work Phone: Chest without Contraston Chest without Contrast [facility] [address] [place] [address] Chest without Contrast MR#: [id number] Acct: [id number] Name: ESTEBAN WOODS Rep #: [id number] : 1935 F 89 From: Kenan yo MD PCP: Dr. Donovan Nice DO Status: REG CLI Study: Chest without Contrast Date of Exam: 11/21/24 Exam# [id number] Ordering Dr: Tamir Cardoso DO PROCEDURE: CHEST WITHOUT CONTRAST 11/21/2024 REASON FOR EXAM: QUACH TECHNIQUE: Chest CT without contrast. Coronal and Sagittal reconstruction series were provided. One or more dose reduction techniques were used (e.g., Automated exposure control, adjustment of the mA and/or kV according to patient size, use of iterative reconstruction technique RADIATION DOSE SUMMARY: CTDlvol: 9.26 mGy DLP: 305.57 mGycm COMPARISON: Prior chest radiograph dated June 11, 2024. FINDINGS: Hardware: None Lymph nodes: Scattered mediastinal lymph nodes. The largest lymph node is in the region of the aorto pulmonary window and measures 2 point 4 cm. Heart and Vasculature: Cardiomegaly. Atherosclerotic calcifications of the thoracic aorta. Thoracic aorta and pulmonary arteries have normal contours; noncontrast technique limits evaluation. Coronary Artery Calcifications: Present Lungs and Airways: Diffuse increased interstitial markings with small bullous changes in the upper lobe on the right side with sub pleural cystic changes suggestive of chronic interstitial fibrosis. Pleura: No evidence of pleural effusion. Upper Abdomen: Calcification of the abdominal aorta and the major visceral branches. Bones: Degenerative changes of the thoracic spine. CT/Chest without Contrast IMPRESSION: Coronary artery calcification (CAC) is is present. Cardiomegaly. 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 Prominence of the mediastinal lymph nodes. Reading Location: [place] [address] CC: Dr. Tamir Cardoso DO; Dr. Donovan Nice DO Rail Project Engineer: Signed Normal [facility] Anion gap in Serum or Plasma Ordered By: Donovan Nice on 11-13-2024 Anion gap [Moles/Vol] 11 mmol/L 5-15 [facility] Comment on above: Previous reported re sult: 10 Edited by: KIRILL on 11/13/24:1149 AMENDED REPORT 11/13/24 1149 GAP previously reported as: 10 BUN/creatinine ratioOrdered By: Donovan Nice on 11-13-2024 Urea nitrogen/Creatinine [Mass ratio] 38.2 mg/mg High 10-20 [facility] Comment on above: Previous reported re sult: 39.7 RATIOEdited by: KIRILL on 11/13/24:1149 AMENDED REPORT 11/13/24 1149 BUN/CRE previously reported as: 39.7 H RATIO Bilirubin, totalOrdered By: Donovan Nice on 11-13-2024 Bilirubin [Mass/Vol] 1.59 mg/dL High 0.00-1.30 [facility] Comment on above: Previous reported re sult: 1.64 mg/dLEdited by: KIRILL on 11/13/24:1149 AMENDED REPORT 11/13/24 1149 T BILI previously reported as: 1.64 H mg/dL CBC-Complete Blood Cnt No Di ffon 11-13-2024 Erythrocyte distribution width (RBC) [Ratio] 13.7 % Normal 11.6-14.6 [facility] Comment on above: Order Comment: 514.2 Performed By: #### L 500.2500, L100.0100 #### [facility] [address] [place] [address]. [place], [address] Hematocrit (Bld) [Volume fraction] 42.4 % Normal 37-47 [facility] Comment on above: Order Comment: 514.2 Performed By: #### L 500.2500, L100.0100 #### [facility] [address] [place], [address] Hemoglobin (Bld) [Mass/Vol] 13.7 g/dL Normal 12.0-15.0 [facility] Comment on above: Order Comment: 514.2 Performed By: #### L 500.2500, L100.0100 #### [facility] [address] [place], [address] MCH (RBC) [Entitic mass] 33.0 pg High 27.0-32.0 [facility] Comment on above: Order Comment: 514.2 Performed By: #### L 500.2500, L100.0100 #### [facility] [address] [place], [address] MCHC (RBC) [Mass/Vol] 32.3 g/dL Normal 32-36 [facility] Comment on above: Order Comment: 514.2 Performed By: #### L 500.2500, L100.0100 #### [facility] [address] [place], [address] MCV (RBC) [Entitic vol] 102.2 fL High 81-99 [facility] Comment on above: Order Comment: 514.2 Performed By: #### L 500.2500, L100.0100 #### [facility] [address] [place], [address] Platelet mean volume (Bld) [Entitic vol] 9.7 fL Normal 6.2-12.0 [facility] Comment on above: Order Comment: 514.2 Performed By: #### L 500.2500, L100.0100 #### [facility] [address] [place], [address] Platelets (Bld) [#/Vol] 227 10*3/uL Normal 150-450 [facility] Comment on above: Order Comment: 514.2 Performed By: #### L 500.2500, L100.0100 #### [facility] [address] [place], [address] RBC (Bld) [#/Vol] 4.15 10*6/uL Low 4.2-5.4 [facility] Comment on above: Order Comment: 514.2 Performed By: #### L 500.2500, L100.0100 #### [facility] [address] [place], [address] RDW SD 52.1 fl High 35.1-43.9 [facility] Comment on above: Order Comment: 514.2 Performed By: #### L 500.2500, L100.0100 #### [facility] [address] [place], [address] WBC (Bld) [#/Vol] 9.9 10*3/uL Normal 4.4-11.0 [facility] Comment on above: Order Comment: 514.2 Performed By: #### L 500.2500, L100.0100 #### [facility] [address] [place], [address] Carbon dioxide, total [Moles /volume] in Central venous bloodOrdered By: Donovan Nice on 11-13-2024 CO2 [Moles/Vol] 25.7 mmol/L 21.0-32.0 [facility] Comment on above: Previous reported re sult: 26.8 mmol/LEdited by: AUTOINS on 11/13/24:1149 AMENDED REPORT 11/13/24 1149 CO2 previously reported as: 26.8 mmol/L Chloride assayOrdered By: Jaspreet Nice on 11-13-2024 Chloride [Moles/Vol] 97 mmol/L Low 98-108 [facility] Comprehensive Metabolic Prof ilon 11-13-2024 Albumin/Globulin [Mass ratio] 0.9 {ratio} Normal 0.9-2.4 [facility] Comment on above: Order Comment: 514.2 Performed By: #### L 500.2500, L100.0100 #### [facility] [address] [place], [address] ALT [Catalytic activity/Vol] 21 U/L Normal <=34 [facility] Comment on above: Order Comment: 514.2 Result Comment: AMENDED REPORT 11/13/241148 ALT previously reported as: 17 U/L Performed By: #### L 500.2500, L100.0100 #### [facility] [address] [place], [address] AST [Catalytic activity/Vol] 21 U/L Normal <=31 [facility] Comment on above: Order Comment: 514.2 Result Comment: AMENDED REPORT 11/13/241148 AST previously reported as: 20 U/L Performed By: #### L 500.2500, L100.0100 #### [facility] [address] [place], [address] Bilirubin [Mass/Vol] 1.59 mg/dL High 0.00-1.30 [facility] Comment on above: Order Comment: 514.2 Result Comment: AMENDED REPORT 11/13/241148 T BILI previously reported as: 1.64 H mg/dL Performed By: #### L 500.2500, L100.0100 #### [facility] [address] [place], [address] BUN/CRE 38.2 RATIO High 10-20 [facility] Comment on above: Order Comment: 514.2 Result Comment: AMENDED REPORT 11/13/241148 BUN/CRE previously reported as: 39.7 H RATIO Performed By: #### L 500.2500, L100.0100 #### [facility] [address] [place], [address] Calcium [Mass/Vol] 9.8 mg/dL Normal 7.6-11.0 [facility] Comment on above: Order Comment: 514.2 Result Comment: AMENDED REPORT 11/13/24 1149 CA previously reported as: 9.7 mg/dL Performed By: #### L 500.2500, L100.0100 #### [facility] [address] [place], [address] CO2 [Moles/Vol] 25.7 mmol/L Normal 21.0-32.0 [facility] Comment on above: Order Comment: 514.2 Result Comment: AMENDED REPORT 11/13/241148 CO2 previously reported as: 26.8 mmol/L Performed By: #### L 500.2500, L100.0100 #### [facility] [address] [place], [address] Creatinine [Mass/Vol] 1.17 mg/dL Normal 0.70-1.20 [facility] Comment on above: Order Comment: 514.2 Result Comment: AMENDED REPORT 11/13/241148 CREAT,SERUM previously reported as: 1.18 mg/dL Performed By: #### L 500.2500, L100.0100 #### [facility] [address] [place], [address] GAP 11 Normal 5-15 [facility] Comment on above: Order Comment: 514.2 Result Comment: AMENDED REPORT 11/13/241148 GAP previously reported as: 10 Performed By: #### L 500.2500, L100.0100 #### [facility] [address] [place], [address] Globulin (S) [Mass/Vol] 3.6 g/dL Normal 2.2-4.2 [facility] Comment on above: Order Comment: 514.2 Performed By: #### L 500.2500, L100.0100 #### [facility] [address] [place], [address] Glucose [Mass/Vol] 87 mg/dL Normal 70-99 [facility] Comment on above: Order Comment: 514.2 Performed By: #### L 500.2500, L100.0100 #### [facility] [address] [place], [address] T PROT 6.8 g/dL Normal 5.9-8.4 [facility] Comment on above: Order Comment: 514.2 Performed By: #### L 500.2500, L100.0100 #### [facility] [address] [place], [address] Urea nitrogen [Mass/Vol] 45 mg/dL High 4-19 [facility] Comment on above: Order Comment: 514.2 Result Comment: AMENDED REPORT 11/13/24 1149 BUN previously reported as: 47 H mg/dL Performed By: #### L 500.2500, L100.0100 #### [facility] [address] [place], [address] Erythrocyte distribution wid th ratioOrdered By: Donovan Nice on 11-13-2024 Erythrocyte distribution width (RBC) [Ratio] 13.7 % 11.6-14.6 [facility] Erythrocyte distribution wid th standard deviationOrdered By: Donovan Nice on 11-13-2024 Erythrocyte distribution width (RBC) [Ratio] 52.1 fl High 35.1-43.9 [facility] Glomerular filtration rate ( GFR) estimation/1.73 sq m using serum, plasma, or whole bOrdered By: Donovan Nice on 11-13-2024 GFR/1.73 sq M.predicted among non-blacks MDRD (S/P/Bld) [Vol rate/Area] 44 mL/min/{1.73_m2} Low >60 [facility] Comment on above: mL/min/1.73m2 CKD-EP I Creatinine Equation (2020) Hematocrit Auto (Bld) [Volum e fraction]Ordered By: Donovan Nice on 11-13-2024 Hematocrit (Bld) [Volume fraction] 42.4 % 37-47 [facility] Hemoglobin measurementOrdere d By: Donovan Nice on 11-13-2024 Hemoglobin (Bld) [Mass/Vol] 13.7 g/dL 12.0-15.0 [facility] - Chemistry and C hemistry - challengeOrdered By: Donovan Nice on 11-13-2024 AST [Catalytic activity/Vol] 21 U/L <32 [facility] Comment on above: Previous reported re sult: 20 U/LEdited by: KIRILL on 11/13/24:1149 AMENDED REPORT 11/13/24 1149 AST previously reported as: 20 U/L MCV (mean corpuscular volume ) determinationOrdered By: Donovan Nice on 11-13-2024 MCV (RBC) [Entitic vol] 102.2 fL High 81-99 [facility] Mean corpuscular hemoglobin (MCH) determinationOrdered By: Donovan Nice on 11-13-2024 MCH (RBC) [Entitic mass] 33.0 pg High 27.0-32.0 [facility] Mean corpuscular hemoglobin concentration (MCHC) determinationOrdered By: Donovan Nice on 11-13-2024 MCHC (RBC) [Mass/Vol] 32.3 g/dL 32-36 [facility] Mean platelet volume determi nationOrdered By: Donovan Nice on 11-13-2024 Platelet mean volume (Bld) [Entitic vol] 9.7 fL 6.2-12.0 [facility] Natriuretic peptide.B prohor vidhya N-Terminal [Mass/volume] in Serum or PlasmaOrdered By: Donovan Nice on 11-13-2024 Natriuretic peptide.B prohormone N-Terminal [Mass/Vol] 5041 pg/mL High <1800 [facility] Comment on above: Heart Failure Unlike ly: < 300 pg/mLHeart Failure Likely< 50 Years: > 450 pg/mL50-75 Years: > 900 pg/mL>75 Years: > 1800 pg/mLPrevious reported result: 5201 pg/mLEdited by: KIRILL on 11/13/24:1149 AMENDED REPORT 11/13/24 1149 proBNP previously reported as: 5201 H pg/mL Heart Failure Unlikely: < 300 pg/mLHeart Failure Likely< 50 Years: > 450 pg/mL50-75 Years: > 900 pg/mL>75 Years: > 1800 pg/mL Platelet countOrdered By: Jaspreet Nice on 11-13-2024 Platelets (Bld) [#/Vol] 227 10*3/uL 150-450 [facility] Potassium measurement (mass/ volume)Ordered By: Donovan Nice on 11-13-2024 Potassium (Unsp spec) [Mass/Vol] 4.7 mmol/L 3.3-5.1 [facility] Pro- Brain NATRIURETIC PEPTI Faiza 11-13-2024 Natriuretic peptide B (Bld) [Mass/Vol] 5041 pg/mL High <=1800 [facility] Comment on above: Order Comment: 514.2 Result Comment: Hear t Failure Unlikely: < 300 pg/mL Heart Failure Likely < 50 Years: > 450 pg/mL 50-75 Years: > 900 pg/mL >75 Years: > 1800 pg/mL AMENDED REPORT 11/13/24 1149 proBNP previously reported as: 5201 H pg/mL Heart Failure Unlikely: < 300 pg/mL Heart Failure Likely < 50 Years: > 450 pg/mL 50-75 Years: > 900 pg/mL >75 Years: > 1800 pg/mL Performed By: #### L 500.2500, L100.0100 #### [facility] [address] [place], [address] RBC Auto (Bld) [#/Vol]Ordere d By: Donovan Nice on 11-13-2024 RBC (Bld) [#/Vol] 4.15 10*6/uL Low 4.2-5.4 [facility] Serum creatinine measurement (mass/volume)Ordered By: Donovan Nice on 11-13-2024 Creatinine [Mass/Vol] 1.17 mg/dL 0.70-1.20 [facility] Comment on above: Previous reported re sult: 1.18 mg/dLEdited by: KIRILL on 11/13/24:1149 AMENDED REPORT 11/13/24 1149 CREAT,SERUM previously reported as: 1.18 mg/dL Serum globulin measurementOr dered By: Donovan Nice on 11-13-2024 Globulin (S) [Mass/Vol] 3.6 g/dL 2.2-4.2 [facility] Serum glucose measurement (m ass/volume)Ordered By: Donovan Nice on 11-13-2024 Glucose [Mass/Vol] 87 mg/dL 70-99 [facility] Serum or plasma alanine ball otransferase (ALT) measurementOrdered By: Donovan Nice on 11-13-2024 ALT [Catalytic activity/Vol] 21 U/L <35 [facility] Comment on above: Previous reported re sult: 17 U/LEdited by: KIRILL on 11/13/24:1149 AMENDED REPORT 11/13/24 1149 ALT previously reported as: 17 U/L Serum or plasma albumin sarbjit urement (mass/volume)Ordered By: Donovan Nice on 11-13-2024 Albumin [Mass/Vol] 3.2 g/dL Low 3.4-4.8 [facility] Serum or plasma albumin/glob ulin mass ratioOrdered By: Donovan Nice on 11-13-2024 Albumin/Globulin [Mass ratio] 0.9 {ratio} 0.9-2.4 [facility] Serum or plasma alkaline mauri sphatase measurementOrdered By: Donovan Nice on 11-13-2024 ALP [Catalytic activity/Vol] 72 U/L 35-104 [facility] Serum or plasma calcium sarbjit urement (mass/volume)Ordered By: Donovan Nice on 11-13-2024 Calcium [Mass/Vol] 9.8 mg/dL 7.6-11.0 [facility] Comment on above: Previous reported re sult: 9.7 mg/dLEdited by: KIRILL on 11/13/24:1149 AMENDED REPORT 11/13/24 1149 CA previously reported as: 9.7 mg/dL Serum or plasma urea nitroge n measurement (mass/volume)Ordered By: Donovan Nice on 11-13-2024 Urea nitrogen [Mass/Vol] 45 mg/dL High 4-19 [facility] Comment on above: Previous reported re sult: 47 mg/dLEdited by: KIRILL on 11/13/24:1149 AMENDED REPORT 11/13/24 1149 BUN previously reported as: 47 H mg/dL Serum or plasma uric acid me asurement (mass/volume)Ordered By: Donovan Nice on 11-13-2024 Urate [Mass/Vol] 6.5 mg/dL High 2.6-6.0 [facility] Comment on above: The drugs N-Acetylcy steine and Metamizole may falsely depress this assay. Sodium levelOrdered By: Cirilo Nice on 11-13-2024 Sodium [Moles/Vol] 134 mmol/L 133-145 [facility] T4 Total, Thyroxinon 025 T4 [Mass/Vol] 5.7 ug/dL Normal 4.8-13.9 [facility] Comment on above: Order Comment: 514.2 Result Comment: AMENDED REPORT 11/13/24 1149 T4 THYROXIN previously reported as: 5.6 ug/dL Performed By: #### L 500.2500, L100.0100 #### [facility] [address] [place], [place], [address] TSH DL <= 0.005 mIU/L QnOrde red By: Donovan Nice on 11-13-2024 TSH Qn 2.380 uIU/mL 0.300-4.200 [facility] Comment on above: Previous reported re sult: 2.500 uIU/mLEdited by: KIRILL on 11/13/24:1149 AMENDED REPORT 11/13/24 1149 TSH previously reported as: 2.500 uIU/mL Thyroid Stim Hormone (TSH)on 11-13-2024 TSH 2.380 uIU/mL Normal 0.300-4.200 [facility] Comment on above: Order Comment: 514.2 Result Comment: AMENDED REPORT 11/13/24 1149 TSH previously reported as: 2.500 uIU/mL Performed By: #### L 500.2500, L100.0100 #### [facility] [address] [facility] [place], [place], [id number] ThyroxineOrdered By: Donovan esquivel on 11-13-2024 T4 [Mass/Vol] 5.7 ug/dL 4.8-13.9 [facility] Comment on above: Previous reported re sult: 5.6 ug/dLEdited by: AUTOINS on 11/13/24:1149 AMENDED REPORT 11/13/24 1149 T4 THYROXIN previously reported as: 5.6 ug/dL Total proteinOrdered By: Marciano Nice on 11-13-2024 Protein [Mass/Vol] 6.8 g/dL 5.9-8.4 [facility] Uric Acidon 11-13-2024 URIC 6.5 mg/dL High 2.6-6.0 [facility] Comment on above: Order Comment: 514.2 Result Comment: The drugs N-Acetylcysteine and Metamizole may falsely depress this assay. Performed By: #### L 500.2500, L100.0100 #### [facility] [address] [place], [address] White blood cell (WBC) count Ordered By: Donovan Nice on 11-13-2024 WBC (Bld) [#/Vol] 9.9 10*3/uL 4.4-11.0 [facility] CNPNon [facility] ESTEBAN WOODS ([id number]) 1935 F [facility] Date Time Provider Department 11/07/24 [facility] During your visit today, we recorded the following information about you: Annette Nieves 11/07/2024 2:57 PM Signed Althea from [facility] left message on senior front end developer voicemail stating patient was admitted to their facility today and was informed by son that Dr. Harding changed recent medications, they would like a order list faxed to [phone] and contact them by phone if any questions at [phone] Kathy Bergeron LPN 11/08/2024 9:02 AM Signed Message left for admissions to phone office in regards to orders and H and P. Kathy Garrett LPN November 08, 2024 9:02 AM Kathy Garrett LPN 11/08/2024 9:50 AM Signed This nurse spoke to nurse at jail. Orders verified, Dr. Niec has now taken over patients care Kathy [...] tablets by mouth daily at bedtime. - dl-bw-NQ-vit O-rispo-jgd-coQ10 (DAILY MULTIVITAMIN) 200-100-500 mcg cap Take 1 capsule by mouth once daily. Problem List As Of Date 11/07/2024 Noted Resolved Atrial fibrillation (HCC) [I48.91] 08/30/2019 Hypertension, essential [I10] 02/25/2017 Hypothyroidism [E03.9] 02/25/2017 Osteoarthritis of knee [M17.9] 09/01/2017 Hyperlipidemia, unspecified [E78.5] 09/26/2023 Intracranial meningioma (HCC) [D32.0] 06/15/2024 Encounter Status:Closed by MATI GARRETT LAUREN on 11/08/24 [facility] Anion gap in Serum or Plasma Ordered By: Tamir Cardoso on 11-05-2024 Anion gap [Moles/Vol] 12 mmol/L 5-15 [facility] BUN/creatinine ratioOrdered By: Tamir Cardoso on 11-05-2024 Urea nitrogen/Creatinine [Mass ratio] 41.1 mg/mg High 01-28 [facility] Basic Metabolic Profile (BMP )on 11-05-2024 BUN/CRE 41.1 RATIO High 01-28 [facility] Comment on above: Performed By: #### L 500.2500, L100.0100 #### [facility] [address] [place], [address] Calcium [Mass/Vol] 10.2 mg/dL Normal 7.6-11.0 [facility] Comment on above: Performed By: #### L 500.2500, L100.0100 #### [facility] [address] [place], [address] Chloride [Moles/Vol] 99 mmol/L Normal 98-108 [facility] Comment on above: Performed By: #### L 500.2500, L100.0100 #### [facility] [address] [place], [address] CO2 [Moles/Vol] 26.3 mmol/L Normal 21.0-32.0 [facility] Comment on above: Performed By: #### L 500.2500, L100.0100 #### [facility] [address] [place], [address] Creatinine [Mass/Vol] 1.14 mg/dL Normal 0.70-1.20 [facility] Comment on above: Performed By: #### L 500.2500, L100.0100 #### [facility] [address] [place], [address] GAP 12 Normal - [facility] Comment on above: Performed By: #### L 500.2500, L100.0100 #### [facility] [address] [place], [address] GFR/1.73 sq M.predicted among non-blacks MDRD (S/P/Bld) [Vol rate/Area] 46 mL/min/{1.73_m2} Low >60 [facility] Comment on above: Result Comment: mL/m in/1.73m2 CKD-EPI Creatinine Equation (2020) Performed By: #### L 500.2500, L100.0100 #### [facility] [address] [place], [address] Glucose [Mass/Vol] 112 mg/dL High 70-99 [facility] Comment on above: Performed By: #### L 500.2500, L100.0100 #### [facility] [address] [place], [address] Potassium [Moles/Vol] 3.9 mmol/L Normal 3.3-5.1 [facility] Comment on above: Performed By: #### L 500.2500, L100.0100 #### [facility] [address] [place], [address] Sodium [Moles/Vol] 137 mmol/L Normal 133-145 [facility] Comment on above: Performed By: #### L 500.2500, L100.0100 #### [facility] [address] [place], [address] Urea nitrogen [Mass/Vol] 47 mg/dL High 4-19 [facility] Comment on above: Performed By: #### L 500.2500, L100.0100 #### [facility] [address] [place], [address] Jeffrey 11-05-2024 [facility] Telephone ([employer]en[employer]) ESTEBAN [id number]) 1935 F [facility] Date Time Provider Department 11/05/24 KODAK HARDING During your visit today, we recorded the following information about you: Annette Nieves 11/05/2024 9:53 AM Signed Patient's son Benjamín contacted the office requesting a phone call back regarding update on Erin. Pt can be reached at [phone] Kathy Bergeron LPN 11/06/2024 10:15 AM Signed This nurse spoke to patients son. Son stated that due to lab work, Cooling System Operator Dr. Cardoso would like PCP to [...] this nurse is to send order to [facility]. Additionally, patient does not currently see a Senior Financial Consultant. Patient was evaluated and treated for shortness of breath at [facility] on 10-22-2024 Patient was seen in 2008 by Cardiology when diagnosed with A Fib, but did not want to go for the additional testing that they wanted her to receive. Patient does have additional testing scheduled, ordered by Cooling System Operator: Pulmonary Function Test November 09, 2024 CT Heart and Lungs November 21, 2024 Echocardiogram November 23, [address] Cardoso Cooling System Operator December 05, 2024 Patient is also moving into [facility] tomorrow. Kathy Garrett LPN November 06, 2024 11:15 AM Allergies As of Date: 11/05/2024 Noted Allergy Reaction CIGARETTE SMOKE 09/03/2020 16 - Unknown Date Reviewed: 09/17/2024 Reviewed by: Kathy Garrett LPN - Fully Assessed Reason for Visit: Patient Update [1234] Primary Visit Diagnosis:QUACH (dyspnea on exertion) [R06.09] Order(s):NT PRO BNP [SQNTBNP] Order #: [id number] FUTURE Prescriptions as of 11/06/2024 - ELIQUIS [...] tablets by mouth daily at bedtime. - tu-fy-HA-vit I-jzqcd-xpm-coQ10 (DAILY MULTIVITAMIN) 200-100-500 mcg cap Take 1 capsule by mouth once daily. Problem List As Of Date 11/05/2024 Noted Resolved Atrial fibrillation (HCC) [I48.91] 08/30/2019 Hypertension, essential [I10] 02/25/2017 Hypothyroidism [E03.9] 02/25/2017 Osteoarthritis of knee [M17.9] 09/01/2017 Hyperlipidemia, unspecified [E78.5] 09/26/2023 Intracranial meningioma (HCC) [D32.0] 06/15/2024 Encounter Status:Closed by KODAK HARDING on 11/06/24 [facility] Carbon dioxide, total [Moles /volume] in Central venous bloodOrdered By: Tamir Cardoso on 11-05-2024 CO2 [Moles/Vol] 26.3 mmol/L 21.0-32.0 [facility] Chloride assayOrdered By: Walton on 11-05-2024 Chloride [Moles/Vol] 99 mmol/L 98-108 [facility] Glomerular filtration rate ( GFR) estimation/1.73 sq m using serum, plasma, or whole bOrdered By: Tamir Cardoso on 11-05-2024 GFR/1.73 sq M.predicted among non-blacks MDRD (S/P/Bld) [Vol rate/Area] 46 mL/min/{1.73_m2} Low >60 [facility] Comment on above: mL/min/1.73m2 CKD-EP I Creatinine Equation (2020) Natriuretic peptide.B prohor vidhya N-Terminal [Mass/volume] in Serum or PlasmaOrdered By: Tamir Cardoso on 11-05-2024 Natriuretic peptide.B prohormone N-Terminal [Mass/Vol] 4437 pg/mL High <1800 [facility] Comment on above: Heart Failure Unlike ly: < 300 pg/mLHeart Failure Likely< 50 Years: > 450 pg/mL50-75 Years: > 900 pg/mL>75 Years: > 1800 pg/mL Potassium measurement (mass/ volume)Ordered By: Tamir Cardoso on 11-05-2024 Potassium (Unsp spec) [Mass/Vol] 3.9 mmol/L 3.3-5.1 [facility] Pro- Brain NATRIURETIC PEPTI Faiza 11-05-2024 Natriuretic peptide B (Bld) [Mass/Vol] 4437 pg/mL High <=1800 [facility] Comment on above: Result Comment: Hear t Failure Unlikely: < 300 pg/mL Heart Failure Likely < 50 Years: > 450 pg/mL 50-75 Years: > 900 pg/mL >75 Years: > 1800 pg/mL Performed By: #### L 500.2500, L100.0100 #### [facility] [address] [place], [place], [address] Pulmonary Visit Reporton Pulmonary Visit Report [facility] [place] [address] [place], [place] [address] OFFICE VISIT Date of Service: 11/05/24 MR#: [id number] Acct: [id number] Name: ESTEBAN WOODS Rep #: [id number] : 1935 Provider: Dr. Tamir Cardoso DO Age/Sex: 89/F Location: [facility].PMW Status: Signed Assessment and Plan Assessment and [...] She has never been evaluated by a tool repairer bench. She has never been diagnosed with any [...] room air Intake Visit Reasons: Hospital FU Claims Counsel Required: No Accompanied by: Son Allergies No Known Allergies A (more content not included)... Normal [facility] Serum creatinine measurement (mass/volume)Ordered By: Tamir Cardoso on 11-05-2024 Creatinine [Mass/Vol] 1.14 mg/dL 0.70-1.20 [facility] Serum glucose measurement (m ass/volume)Ordered By: Tamir Cardoso on 11-05-2024 Glucose [Mass/Vol] 112 mg/dL High 70-99 [facility] Serum or plasma calcium sarbjit urement (mass/volume)Ordered By: Tamir Cardoso on 11-05-2024 Calcium [Mass/Vol] 10.2 mg/dL 7.6-11.0 [facility] Serum or plasma urea nitroge n measurement (mass/volume)Ordered By: Tamir Cardoso on 11-05-2024 Urea nitrogen [Mass/Vol] 47 mg/dL High 4-19 [facility] Sodium levelOrdered By: Liana Cardoso on 11-05-2024 Sodium [Moles/Vol] 137 mmol/L 133-145 [facility] 12 Lead EKGon 10-22-2024 12 Lead EKG [facility] [address] [place] [address] 12 Lead EKG 10/22/24 1639 MR#: [id number] Acct: [id number] Name: ESTEBAN WOODS Rep #: [id number] : 1935 89 From: Benjamín Hendrix MD [...] undetermined Abnormal ECG Confirmed by Benjamín Hendrix ([id number]), slot editor ANSON COHEN ([id number]) on 10/24/2024 11:19:43 AM Referred By: Jeyson Mayer Confirmed By: Benjamín Hendrix 10/24/24 1119 Date Benjamín Hendrix MD CC: Dr. Jeyson Mayer MD; Dr. Kodak Harding MD Signed Normal [facility] Absolute lymphocyte countOrd ered By: Jeyson Mayer on 10-22-2024 Lymphocytes Auto (Unsp spec) [#/Vol] 1.77 10*3/uL 0.83-4.51 [facility] Absolute neutrophil countOrd ered By: Jeyson Mayer on 10-22-2024 Neutrophils (Bld) [#/Vol] 7.3 10*3/uL 2.0-7.7 [facility] Anion gap in Serum or Plasma Ordered By: Jeyson Mayer on 10-22-2024 Anion gap [Moles/Vol] 13 mmol/L 5- [facility] Automated lymphocyte count a s percentage of total leukocytesOrdered By: Jeyson Mayer on 10-22-2024 Lymphocytes/100 WBC Auto (Unsp spec) 17.8 % Low 19-41 [facility] BUN/creatinine ratioOrdered By: Jeyson Mayer on 10-22-2024 Urea nitrogen/Creatinine [Mass ratio] 35.3 mg/mg High 10-20 [facility] Basophil percentageOrdered B y: Jeyson Mayer on 10-22-2024 Basophils/100 WBC (Bld) 0.5 % 0-1 [facility] Bilirubin Test strip Ql (U)O rdered By: Jeyson Mayer on 10-22-2024 Bilirubin Ql (U) Negative Negative [facility] Bilirubin, totalOrdered By: Jeyson Mayer on 10-22-2024 Bilirubin [Mass/Vol] 1.29 mg/dL 0.00-1.30 [facility] CBC W/Diff, Automatedon 10-09 Absolute Lymph 1.77 X10 3/uL Normal 0.83-4.51 [facility] Comment on above: Performed By: #### L 503.6005, L501.2450, L500.4050, L100.0100 #### [facility] [address] [place], [address] Absolute Neut 7.3 X10 3/uL Normal 2.0-7.7 [facility] Comment on above: Performed By: #### L 503.6005, L501.2450, L500.4050, L100.0100 #### [facility] [address] [place], [address] Basophils/100 WBC (Bld) 0.5 % Normal 0-1 [facility] Comment on above: Performed By: #### L 503.6005, L501.2450, L500.4050, L100.0100 #### [facility] [address] [place], [address] Eosinophils/100 WBC (Bld) 0.8 % Normal 0-5 [facility] Comment on above: Performed By: #### L 503.6005, L501.2450, L500.4050, L100.0100 #### [facility] [address] [place], [address] Erythrocyte distribution width (RBC) [Ratio] 14.2 % Normal 11.6-14.6 [facility] Comment on above: Performed By: #### L 503.6005, L501.2450, L500.4050, L100.0100 #### [facility] [address] [place], [address] Hematocrit (Bld) [Volume fraction] 42.9 % Normal 37-47 [facility] Comment on above: Performed By: #### L 503.6005, L501.2450, L500.4050, L100.0100 #### [facility] [address] [place], [address] Hemoglobin (Bld) [Mass/Vol] 13.9 g/dL Normal 12.0-15.0 [facility] Comment on above: Performed By: #### L 503.6005, L501.2450, L500.4050, L100.0100 #### [facility] [address] [place], [address] IG% 0.600 Normal 0.0-0.9 [facility] Comment on above: Result Comment: IG% - Immature Granulocytes (promyelocytes, myelocytes and metamyelocytes) > 1% indicates that a LEFT SHIFT is Present. Performed By: #### L 503.6005, L501.2450, L500.4050, L100.0100 #### [facility] [address] [place], [address] Lymphocytes/100 WBC (Bld) 17.8 % Low 19-41 [facility] Comment on above: Performed By: #### L 503.6005, L501.2450, L500.4050, L100.0100 #### [facility] [address] [place], [address] MCH (RBC) [Entitic mass] 33.1 pg High 27.0-32.0 [facility] Comment on above: Performed By: #### L 503.6005, L501.2450, L500.4050, L100.0100 #### [facility] [address] [place], [address] MCHC (RBC) [Mass/Vol] 32.4 g/dL Normal 32-36 [facility] Comment on above: Performed By: #### L 503.6005, L501.2450, L500.4050, L100.0100 #### [facility] [address] [place], [address] MCV (RBC) [Entitic vol] 102.1 fL High 81-99 [facility] Comment on above: Performed By: #### L 503.6005, L501.2450, L500.4050, L100.0100 #### [facility] [address] [place], [address] Monocytes/100 WBC (Bld) 7.1 % Normal 0-10 [facility] Comment on above: Performed By: #### L 503.6005, L501.2450, L500.4050, L100.0100 #### [facility] [address] [place], [address] Neutrophils/100 WBC (Bld) 73.2 % High 47-70 [facility] Comment on above: Performed By: #### L 503.6005, L501.2450, L500.4050, L100.0100 #### [facility] [address] [place], [address] Nucleated RBC (Bld) [#/Vol] 0 10*3/uL Normal 0-5 [facility] Comment on above: Performed By: #### L 503.6005, L501.2450, L500.4050, L100.0100 #### [facility] [address] [place], [address] Platelet mean volume (Bld) [Entitic vol] 8.8 fL Normal 6.2-12.0 [facility] Comment on above: Performed By: #### L 503.6005, L501.2450, L500.4050, L100.0100 #### [facility] [address] [place], [address] Platelets (Bld) [#/Vol] 234 10*3/uL Normal 150-450 [facility] Comment on above: Performed By: #### L 503.6005, L501.2450, L500.4050, L100.0100 #### [facility] [address] [place], [address] RBC (Bld) [#/Vol] 4.20 10*6/uL Normal 4.2-5.4 [facility] Comment on above: Performed By: #### L 503.6005, L501.2450, L500.4050, L100.0100 #### [facility] [address] [place], [address] RDW SD 53.2 fl High 35.1-43.9 [facility] Comment on above: Performed By: #### L 503.6005, L501.2450, L500.4050, L100.0100 #### [facility] [address] [place], [address] WBC (Bld) [#/Vol] 9.9 10*3/uL Normal 4.4-11.0 [facility] Comment on above: Performed By: #### L 503.6005, L501.2450, L500.4050, L100.0100 #### [facility] [address] [place], [address] Carbon dioxide, total [Moles /volume] in Central venous bloodOrdered By: Jeyson Mayer on 10-22-2024 CO2 [Moles/Vol] 25.8 mmol/L 21.0-32.0 [facility] Chest PA and Lateralon 10-22 Chest PA and Lateral [facility] [address] [place] [address] Chest PA and Lateral MR#: [id number] Acct: [id number] Name: ESTEBAN WOODS Rep #: [id number] : 1935 F 89 From: Johnny Espinoza MD PCP: Dr. Kodak aHrding MD Status: REG ER Study: Chest PA and Lateral Date of Exam: 10/22/24 Exam# [id number] Ordering Dr: Jeyson Mayer MD PROCEDURE: CHEST [...] Reading Location: [facility] CC: Dr. Jeyson Mayer MD; Dr. 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, [address] Albumin/Globulin [Mass ratio] 0.9 {ratio} Normal 0.9-2.4 [facility] Comment on above: Performed By: #### L 503.6005, L501.2450, L500.4050, L100.0100 #### [facility] [address] [place], [address] ALK PHOS 84 U/L Normal 35-104 [facility] Comment on above: Performed By: #### L 503.6005, L501.2450, L500.4050, L100.0100 #### [facility] [address] [place], [address] ALT [Catalytic activity/Vol] 28 U/L Normal <=34 [facility] Comment on above: Performed By: #### L 503.6005, L501.2450, L500.4050, L100.0100 #### [facility] [address] [place], [address] AST [Catalytic activity/Vol] 27 U/L Normal <=31 [facility] Comment on above: Performed By: #### L 503.6005, L501.2450, L500.4050, L100.0100 #### [facility] [address] [place], [address] Bilirubin [Mass/Vol] 1.29 mg/dL Normal 0.00-1.30 [facility] Comment on above: Performed By: #### L 503.6005, L501.2450, L500.4050, L100.0100 #### [facility] [address] [place], [address] BUN/CRE 35.3 RATIO High 10-20 [facility] Comment on above: Performed By: #### L 503.6005, L501.2450, L500.4050, L100.0100 #### [facility] [address] [place], [address] Calcium [Mass/Vol] 10.4 mg/dL Normal 7.6-11.0 [facility] Comment on above: Performed By: #### L 503.6005, L501.2450, L500.4050, L100.0100 #### [facility] [address] [place], [address] Chloride [Moles/Vol] 98 mmol/L Normal 98-108 [facility] Comment on above: Performed By: #### L 503.6005, L501.2450, L500.4050, L100.0100 #### [facility] [address] [place], [address] CO2 [Moles/Vol] 25.8 mmol/L Normal 21.0-32.0 [facility] Comment on above: Performed By: #### L 503.6005, L501.2450, L500.4050, L100.0100 #### [facility] [address] [place], [address] Creatinine [Mass/Vol] 1.18 mg/dL Normal 0.70-1.20 [facility] Comment on above: Performed By: #### L 503.6005, L501.2450, L500.4050, L100.0100 #### [facility] [address] [place], [address] GAP 13 Normal 5-15 [facility] Comment on above: Performed By: #### L 503.6005, L501.2450, L500.4050, L100.0100 #### [facility] [address] [place], [address] GFR/1.73 sq M.predicted among non-blacks MDRD (S/P/Bld) [Vol rate/Area] 44 mL/min/{1.73_m2} Low >60 [facility] Comment on above: Result Comment: mL/m in/1.73m2 CKD-EPI Creatinine Equation (2020) Performed By: #### L 503.6005, L501.2450, L500.4050, L100.0100 #### [facility] [address] [place], [address] Globulin (S) [Mass/Vol] 4.0 g/dL Normal 2.2-4.2 [facility] Comment on above: Performed By: #### L 503.6005, L501.2450, L500.4050, L100.0100 #### [facility] [address] [place], [address] Glucose [Mass/Vol] 84 mg/dL Normal 70-99 [facility] Comment on above: Performed By: #### L 503.6005, L501.2450, L500.4050, L100.0100 #### [facility] [address] [place], [address] Potassium [Moles/Vol] 3.6 mmol/L Normal 3.3-5.1 [facility] Comment on above: Performed By: #### L 503.6005, L501.2450, L500.4050, L100.0100 #### [facility] [address] [place], [address] Sodium [Moles/Vol] 137 mmol/L Normal 133-145 [facility] Comment on above: Performed By: #### L 503.6005, L501.2450, L500.4050, L100.0100 #### [facility] [address] [place], [address] T PROT 7.7 g/dL Normal 5.9-8.4 [facility] Comment on above: Performed By: #### L 503.6005, L501.2450, L500.4050, L100.0100 #### [facility] [address] [place], [address] Urea nitrogen [Mass/Vol] 42 mg/dL High 4-19 [facility] Comment on above: Performed By: #### L 503.6005, L501.2450, L500.4050, L100.0100 #### [facility] [address] [place], [address] Emergency Department Summary on 10-22-2024 Emergency Department Summary [facility] Medical Records Department [address] [place] [address] Emergency Department Summary 10/22/24 MR#: [id number] Acct: [id number] Name: ESTEBAN WOODS Rep #: [id number] : 1935 89 From: Jeyson Mayer MD [...] shows BU (more content not included)... Normal [facility] Eosinophil percentageOrdered By: Jeyson Mayer on 10-22-2024 Eosinophils/100 WBC (Bld) 0.8 % 0-5 [facility] Erythrocyte distribution wid th ratioOrdered By: Jeyson Mayer on 10-22-2024 Erythrocyte distribution width (RBC) [Ratio] 14.2 % 11.6-14.6 [facility] Erythrocyte distribution wid th standard deviationOrdered By: Jeyson Mayer on 10-22-2024 Erythrocyte distribution width (RBC) [Ratio] 53.2 fl High 35.1-43.9 [facility] Glomerular filtration rate ( GFR) estimation/1.73 sq m using serum, plasma, or whole bOrdered By: Jeyson Mayer on 10-22-2024 GFR/1.73 sq M.predicted among non-blacks MDRD (S/P/Bld) [Vol rate/Area] 44 mL/min/{1.73_m2} Low >60 [facility] Comment on above: mL/min/1.73m2 CKD-EP I Creatinine Equation (2020) Hematocrit Auto (Bld) [Volum e fraction]Ordered By: Jeyson Mayer on 10-22-2024 Hematocrit (Bld) [Volume fraction] 42.9 % 37-47 [facility] Hemoglobin measurementOrdere d By: Jeyson Mayer on 10-22-2024 Hemoglobin (Bld) [Mass/Vol] 13.9 g/dL 12.0-15.0 [facility] Immature granulocytes/100 WB C Auto (Bld)Ordered By: Jeyson Mayer on 10-22-2024 Immature granulocytes/100 WBC (Bld) 0.600 % 0.0-0.9 [facility] Comment on above: IG% - Immature Granu locytes (promyelocytes, myelocytes and metamyelocytes) > 1% indicates that a LEFT SHIFT is Present. Ketones Test strip Ql (U)Ord ered By: Jeyson Mayer on 10-22-2024 Ketones Ql (U) Negative Negative [facility] L503.7505on 10-22-2024 Natriuretic peptide B (Bld) [Mass/Vol] 3953 pg/mL High <=1800 [facility] Comment on above: Result Comment: Hear t Failure Unlikely: < 300 pg/mL Heart Failure Likely < 50 Years: > 450 pg/mL 50-75 Years: > 900 pg/mL >75 Years: > 1800 pg/mL Performed By: #### L 503.6005, L501.2450, L500.4050, L100.0100 #### [facility] [place], [address] Laboratory - Chemistry and C hemistry - challengeOrdered By: Jeyson Mayer on 10-22-2024 AST [Catalytic activity/Vol] 27 U/L <32 [facility] MCV (mean corpuscular volume ) determinationOrdered By: Jeyson Mayer on 10-22-2024 MCV (RBC) [Entitic vol] 102.1 fL High 81-99 [facility] Mean corpuscular hemoglobin (MCH) determinationOrdered By: Jeyson Mayer on 10-22-2024 MCH (RBC) [Entitic mass] 33.1 pg High 27.0-32.0 [facility] Mean corpuscular hemoglobin concentration (MCHC) determinationOrdered By: Jeyson Mayer on 10-22-2024 MCHC (RBC) [Mass/Vol] 32.4 g/dL 32-36 [facility] Mean platelet volume determi nationOrdered By: Jeyson Mayer on 10-22-2024 Platelet mean volume (Bld) [Entitic vol] 8.8 fL 6.2-12.0 [facility] Microscopic analysis of urin e for red blood cells (RBC)Ordered By: Jeyson Mayer on 10-22-2024 Microscopic analysis of urine for red blood cells (RBC) 0-5 SEEN /hpf 0-5 [facility] Monocyte percentageOrdered B y: Jeyson Mayer on 10-22-2024 Monocytes/100 WBC (Bld) 7.1 % 0-10 [facility] Mucus LM Ql (Urine sed)Order ed By: Jeyson Mayer on 10-22-2024 Mucus Ql (Urine sed) 0 SEEN /hpf [facility] Natriuretic peptide.B prohor vidhya N-Terminal [Mass/volume] in Serum or PlasmaOrdered By: Jeyson Mayer on 10-22-2024 Natriuretic peptide.B prohormone N-Terminal [Mass/Vol] 3953 pg/mL High <1800 [facility] Comment on above: Heart Failure Unlike ly: < 300 pg/mLHeart Failure Likely< 50 Years: > 450 pg/mL50-75 Years: > 900 pg/mL>75 Years: > 1800 pg/mL Neutrophil percentageOrdered By: Jeyson Mayer on 10-22-2024 Neutrophils/100 WBC (Bld) 73.2 % High 47-70 [facility] Nitrite Test strip Ql (U)Ord ered By: Jeyson Mayer on 10-22-2024 Nitrite Ql (U) Negative Negative [facility] Nucleated red blood cell per centageOrdered By: Jeyson Mayer on 10-22-2024 Nucleated RBC/100 WBC (Bld) [Ratio] 0 % 0-5 [facility] Platelet countOrdered By: Carlos Mayer on 10-22-2024 Platelets (Bld) [#/Vol] 234 10*3/uL 150-450 [facility] Potassium measurement (mass/ volume)Ordered By: Jeyson Mayer on 10-22-2024 Potassium (Unsp spec) [Mass/Vol] 3.6 mmol/L 3.3-5.1 [facility] Protein Test strip Ql (U)Ord ered By: Jeyson Mayer on 10-22-2024 Protein Ql (U) 30 mg/dl High Negative [facility] RBC Auto (Bld) [#/Vol]Ordere d By: Jeyson Mayer on 10-22-2024 RBC (Bld) [#/Vol] 4.20 10*6/uL 4.2-5.4 [facility] Serum creatinine measurement (mass/volume)Ordered By: Jeyson Mayer on 10-22-2024 Creatinine [Mass/Vol] 1.18 mg/dL 0.70-1.20 [facility] Serum globulin measurementOr dered By: Jeyson Mayer on 10-22-2024 Globulin (S) [Mass/Vol] 4.0 g/dL 2.2-4.2 [facility] Serum glucose measurement (m ass/volume)Ordered By: Jeyson Mayer on 10-22-2024 Glucose [Mass/Vol] 84 mg/dL 70-99 [facility] Serum or plasma alanine ball otransferase (ALT) measurementOrdered By: Jeyson Mayer on 10-22-2024 ALT [Catalytic activity/Vol] 28 U/L <35 [facility] Serum or plasma albumin sarbjit urement (mass/volume)Ordered By: Jeyson Mayer on 10-22-2024 Albumin [Mass/Vol] 3.8 g/dL 3.4-4.8 [facility] Serum or plasma albumin/glob ulin mass ratioOrdered By: Jeyson Mayer on 10-22-2024 Albumin/Globulin [Mass ratio] 0.9 {ratio} 0.9-2.4 [facility] Serum or plasma alkaline mauri sphatase measurementOrdered By: Jeyson Mayer on 10-22-2024 ALP [Catalytic activity/Vol] 84 U/L 35-104 [facility] Serum or plasma calcium sarbjit urement (mass/volume)Ordered By: Jeyson Mayer on 10-22-2024 Calcium [Mass/Vol] 10.4 mg/dL 7.6-11.0 [facility] Serum or plasma urea nitroge n measurement (mass/volume)Ordered By: Jeyson Mayer on 10-22-2024 Urea nitrogen [Mass/Vol] 42 mg/dL High 4-19 [facility] Sodium levelOrdered By: Jeyson Mayer on 10-22-2024 Sodium [Moles/Vol] 137 mmol/L 133-145 [facility] Squamous epithelial cells de tection in urine sediment by light microscopyOrdered By: Jeyson Mayer on 10-22-2024 Epithelial cells.squamous LM Ql (Urine sed) 0-5 SEEN /hpf - [facility] Total proteinOrdered By: yNa Mayer on 10-22-2024 Protein [Mass/Vol] 7.7 g/dL 5.9-8.4 [facility] Urinalysis, Completeon 10-22 BACTERIA 2+ /hpf Normal None Seen [facility] Comment on above: Order Comment: CLEAN CATCH Performed By: #### L 500.2500, L100.0100 #### [facility] [address] [place], [address] EPI,SQUAMOUS 0-5 SEEN Normal 5-10 [facility] Comment on above: Order Comment: CLEAN CATCH Performed By: #### L 500.2500, L100.0100 #### [facility] [address] [place], [address] RBC 0-5 SEEN Normal 0-5 [facility] Comment on above: Order Comment: CLEAN CATCH Performed By: #### L 500.2500, L100.0100 #### [facility] [address] [place], [address] WBC 0-5 SEEN Normal 0-5 [facility] Comment on above: Order Comment: CLEAN CATCH Performed By: #### L 500.2500, L100.0100 #### [facility] [address] [place], [address] Mucus Ql (Urine sed) 0 SEEN Normal [facility] Comment on above: Order Comment: CLEAN CATCH Performed By: #### L 500.2500, L100.0100 #### [facility] [address] [place], [place], [id number] Urine clarityOrdered By: Nya Mayer on 10-22-2024 Clarity (U) Sl. Cloudy Clear [facility] Urine color determinationOrd ered By: Jeyson Mayer on 10-22-2024 Color (U) Yellow Yellow [facility] Urine glucose detectionOrder ed By: Jeyson Mayer on 10-22-2024 Glucose Ql (U) Normal mg/dl Normal [facility] Urine leukocyte esterase det ection by dipstickOrdered By: Jeyson Mayer on 10-22-2024 Leukocyte esterase Test strip Ql (U) 25 /ul High Negative [facility] Urine pHOrdered By: Jeyson barrios on 10-22-2024 pH (U) 6.0 [pH] 5.0 - 8.0 [facility] Urine sediment bacteria coun t by microscopy (number/high power field)Ordered By: Jeyson Mayer on 10-22-2024 Bacteria LM.HPF (Urine sed) [#/Area] 2 /[HPF] None Seen [facility] Urine specific gravity measu rementOrdered By: Jeyson Mayer on 10-22-2024 Specific gravity (U) [Rel density] 1.010 1.002-1.030 [facility] Urine urobilinogen measureme ntOrdered By: Jeyson Mayer on 10-22-2024 Urobilinogen Ql (U) 1 mg/dl High Normal [facility] White blood cell (WBC) count Ordered By: Jeyson Mayer on 10-22-2024 WBC (Bld) [#/Vol] 9.9 10*3/uL 4.4-11.0 [facility] White blood cell countOrdere d By: Jeyson Mayer on 10-22-2024 White blood cell count 0-5 SEEN /hpf 0-5 [facility] CBC W Auto Differential pane l (Bld)on 10-01-2024 Basophils (Bld) [#/Vol] 0.05 10*3/uL Normal <0.11 [facility] Comment on above: Order Comment: Speci men Type: BLOOD SPECIMEN Ordering Facility: [facility] Address: [address] [place] [address] Performed By: #### 5 7021-8 #### [facility] CLIA [id number] [address] [place] [address] [place] Basophils/100 WBC (Bld) 0.5 % Normal [facility] Comment on above: Order Comment: Speci men Type: BLOOD SPECIMEN Ordering Facility: [facility] Address: [address] [place] [address] Performed By: #### 5 7021-8 #### [facility] CLIA [id number] [address] [place] [address] [place] Differential cell count method Nom (Bld) Auto Normal [facility] Comment on above: Order Comment: Speci men Type: BLOOD SPECIMEN Ordering Facility: [facility] Address: [address] [place] [address] Performed By: #### 5 7021-8 #### [facility] CLIA [id number] [address] [place] [address] [place] Eosinophils (Bld) [#/Vol] 0.09 10*3/uL Normal <0.46 [facility] Comment on above: Order Comment: Speci men Type: BLOOD SPECIMEN Ordering Facility: [facility] Address: [address] [place] [address] Performed By: #### 5 7021-8 #### [facility] CLIA [id number] [address] [place] [address] [place] Eosinophils/100 WBC (Bld) 0.9 % Normal [facility] Comment on above: Order Comment: Speci men Type: BLOOD SPECIMEN Ordering Facility: [facility] Address: [address] [place] [address] Performed By: #### 5 7021-8 #### [facility] CLIA [id number] [address] [place] [address] [place] Erythrocyte distribution width (RBC) [Ratio] 14.4 % Normal 11.5-15.0 [facility] Comment on above: Order Comment: Speci men Type: BLOOD SPECIMEN Ordering Facility: [facility] Address: [address] [place] [address] Performed By: #### 5 7021-8 #### [facility] CLIA [id number] [address] [place] [address] [place] Hematocrit (Bld) [Volume fraction] 38.1 % Normal 36.0-46.0 [facility] Comment on above: Order Comment: Speci men Type: BLOOD SPECIMEN Ordering Facility: [facility] Address: [address] [place] [address] Performed By: #### 5 7021-8 #### [id number] [address] [place] [address] [place] Hemoglobin (Bld) [Mass/Vol] 12.7 g/dL Normal 11.5-15.5 [facility] Comment on above: Order Comment: Speci men Type: BLOOD SPECIMEN Ordering Facility: [facility] Address: [address] [place] [address] Performed By: #### 5 7021-8 #### [facility] [id number] [address] [place] [address] [place] Immature granulocytes (Bld) [#/Vol] 0.07 10*3/uL Normal <0.10 [facility] Comment on above: Order Comment: Speci men Type: BLOOD SPECIMEN Ordering Facility: [facility] Address: [address] [place] [address] Performed By: #### 5 7021-8 #### [facility] CLIA [id number] [address] [place] [address] [place] Immature granulocytes/100 WBC (Bld) 0.7 % Normal [facility] Comment on above: Order Comment: Speci men Type: BLOOD SPECIMEN Ordering Facility: [facility] Address: [address] [place] [address] Performed By: #### 5 7021-8 #### [facility] CLIA [id number] [address] [place] [address] [place] Lymphocytes (Bld) [#/Vol] 1.43 10*3/uL Normal 1.00-4.00 [facility] Comment on above: Order Comment: Speci men Type: BLOOD SPECIMEN Ordering Facility: [facility] Address: [address] [place] [address] Performed By: #### 5 7021-8 #### [facility] CLIA [id number] [address] [place] [address] [place] Lymphocytes/100 WBC (Bld) 14.7 % Normal [facility] Comment on above: Order Comment: Speci men Type: BLOOD SPECIMEN Ordering Facility: [facility] Address: [address] [place] [address] Performed By: #### 5 7021-8 #### [facility] CLIA [id number] [address] [place] [address] [place] MCH (RBC) [Entitic mass] 33.1 pg Normal 26.0-34.0 [facility] Comment on above: Order Comment: Speci men Type: BLOOD SPECIMEN Ordering Facility: [facility] Address: [address] [place] [address] Performed By: #### 5 7021-8 #### [facility] CLIA [id number] [address] [place] [address] [place] MCHC (RBC) [Mass/Vol] 33.3 g/dL Normal 30.5-36.[address] [facility] Comment on above: Order Comment: Speci men Type: BLOOD SPECIMEN Ordering Facility: [facility] Address: [address] [place] [address] Performed By: #### 5 7021-8 #### [facility] CLIA [id number] [address] [place] [address] [place] MCV (RBC) [Entitic vol] 99.2 fL Normal 80.0-100.0 [facility] Comment on above: Order Comment: Speci men Type: BLOOD SPECIMEN Ordering Facility: [facility] Address: [address] [place] [address] Performed By: #### 5 7021-8 #### [facility] CLIA [id number] [address] [place] [address] [place] Monocytes (Bld) [#/Vol] 0.71 10*3/uL Normal <0.87 [facility] Comment on above: Order Comment: Speci men Type: BLOOD SPECIMEN Ordering Facility: [facility] Address: [address] [place] [address] Performed By: #### 5 7021-8 #### [facility] CLIA [id number] [address] [place] [address] [place] Monocytes/100 WBC (Bld) 7.3 % Normal C [facility] Comment on above: Order Comment: Speci men Type: BLOOD SPECIMEN Ordering Facility: [facility] Address: [address] [place] [address] Performed By: #### 5 7021-8 #### [facility] CLIA [id number] [address] [place] [address] [place] Neutrophils (Bld) [#/Vol] 7.41 10*3/uL Normal 1.45-7.50 [facility] Comment on above: Order Comment: Speci men Type: BLOOD SPECIMEN Ordering Facility: [facility] Address: [address] [place] [address] Performed By: #### 5 7021-8 #### [facility] CLIA [id number] [address] [place] [address] [place] Neutrophils/100 WBC (Bld) 75.9 % Normal [facility] Comment on above: Order Comment: Speci men Type: BLOOD SPECIMEN Ordering Facility: [facility] Address: [address] [place] [address] Performed By: #### 5 7021-8 #### [facility] CLIA [id number] [address] [place] [address] [place] Nucleated RBC (Bld) [#/Vol] 10*3/uL Normal <0.01 [facility] Comment on above: Order Comment: Speci men Type: BLOOD SPECIMEN Ordering Facility: [facility] Address: [address] [place] [address] Performed By: #### 5 7021-8 #### [facility] CLIA [id number] [address] [place] [address] [place] Nucleated RBC/100 WBC (Bld) [Ratio] 0.0 /100 WBC Normal [facility] Comment on above: Order Comment: Speci men Type: BLOOD SPECIMEN Ordering Facility: [facility] Address: [address] [place] [address] Performed By: #### 5 7021-8 #### [facility] CLIA [id number] [address] [place] [address] [place] Platelet mean volume (Bld) [Entitic vol] 8.5 fL Low 9.0-12.7 [facility] Comment on above: Order Comment: Speci men Type: BLOOD SPECIMEN Ordering Facility: [facility] Address: [address] [place] [address] Performed By: #### 5 7021-8 #### [facility] CLIA [id number] [address] [place] [address] [place] Platelets (Bld) [#/Vol] 215 10*3/uL Normal 150-400 [facility] Comment on above: Order Comment: Speci men Type: BLOOD SPECIMEN Ordering Facility: [facility] Address: [address] [place] [address] Performed By: #### 5 7021-8 #### [facility] CLIA [id number] [address] [place] [address] [place] RBC (Bld) [#/Vol] 3.84 10*6/uL Low 3.90-5.20 [facility] Comment on above: Order Comment: Speci men Type: BLOOD SPECIMEN Ordering Facility: [facility] Address: [address] [place] [address] Performed By: #### 5 7021-8 #### [facility] CLIA [id number] [address] [place] [address] [place] WBC (Bld) [#/Vol] 9.76 10*3/uL Normal 3.70-11.00 [facility] Comment on above: Order Comment: Speci men Type: BLOOD SPECIMEN Ordering Facility: [facility] Address: [address] [place], [place] [address] Performed By: #### 5 7021-8 #### [id number] [address] [place] [address] [place] Comprehensive metabolic 2000 panelon 10-01-2024 Albumin [Mass/Vol] 3.5 g/dL Low 3.9-4.9 [facility] Comment on above: Order Comment: Speci men Type: BLOOD SPECIMEN Ordering Facility: [facility] Address: [address] [place] [address] Performed By: #### 2 4323-8 #### [facility] [id number] [address] [place] [address] [place] ALP [Catalytic activity/Vol] 75 U/L Normal 34-123 [facility] Comment on above: Order Comment: Speci men Type: BLOOD SPECIMEN Ordering Facility: [facility] Address: [address] [place] [address] Performed By: #### 2 4323-8 #### [facility] CLIA [id number] [address] [place] [address] [place] ALT [Catalytic activity/Vol] 27 U/L Normal 7-38 [facility] Comment on above: Order Comment: Speci men Type: BLOOD SPECIMEN Ordering Facility: [facility] Address: [address] [place] [address] Performed By: #### 2 4323-8 #### [facility] CLIA [id number] [address] [place] [address] [place] Anion gap [Moles/Vol] 13 mmol/L Normal 8-[address] [facility] Comment on above: Order Comment: Speci men Type: BLOOD SPECIMEN Ordering Facility: [facility] Address: [address] [place] [address] Performed By: #### 2 4323-8 #### [facility] CLIA [id number] [address] [place] [address] [place] AST [Catalytic activity/Vol] Normal [facility] Comment on above: Order Comment: Speci men Type: BLOOD SPECIMEN Ordering Facility: [facility] Address: [address] [place] [address] Result Comment: Unab le to assay. Specimen significantly hemolyzed. Performed By: #### 2 4323-8 #### [facility] CLIA [id number] [address] [place] [address] [place] Bilirubin [Mass/Vol] 1.5 mg/dL High 0.2-1.3 [facility] Comment on above: Order Comment: Speci men Type: BLOOD SPECIMEN Ordering Facility: [facility] Address: [address] [place] [address] Performed By: #### 2 4323-8 #### [facility] CLIA [id number] [address] [place] [address] [place] Calcium [Mass/Vol] 10.2 mg/dL Normal 8.5-10.2 [facility] Comment on above: Order Comment: Speci men Type: BLOOD SPECIMEN Ordering Facility: [facility] Address: [address] [place] [address] Performed By: #### 2 4323-8 #### [facility] CLIA [id number] [address] [place] [address] [place] Chloride [Moles/Vol] 98 mmol/L Normal 98-107 [facility] Comment on above: Order Comment: Speci men Type: BLOOD SPECIMEN Ordering Facility: [facility] Address: [address] [place] [address] Performed By: #### 2 4323-8 #### [facility] CLIA [id number] [address] [place] [address] [place] CO2 [Moles/Vol] 21 mmol/L Low 22-30 [facility] Comment on above: Order Comment: Speci men Type: BLOOD SPECIMEN Ordering Facility: [facility] Address: [address] [place] [address] Performed By: #### 2 4323-8 #### [facility] [id number] [address] [place] [address] [place] Creatinine [Mass/Vol] 0.83 mg/dL Normal 0.58-0.[address] [facility] Comment on above: Order Comment: Speci men Type: BLOOD SPECIMEN Ordering Facility: [facility] Address: [address] [place] [address] Performed By: #### 2 4323-8 #### [facility] [id number] [address] [place] [address] [place] Creatinine and Glomerular filtration rate.predicted panel (S/P/Bld) 67 mL/min/1.73m??? Normal >=60 [facility] Comment on above: Order Comment: Speci men Type: BLOOD SPECIMEN Ordering Facility: [facility] Address: [address] [place], [place] [id number] Result Comment: Dana mated Glomerular Filtration Rate [...] GFR. Performed By: #### 2 4323-8 #### [facility] CLIA [id number] [address] [place] [address] [place] Glucose [Mass/Vol] 103 mg/dL High 74-99 [facility] Comment on above: Order Comment: Jazmin moya Type: BLOOD SPECIMEN Ordering Facility: [facility] Address: [address] [place] [address] Result Comment: The [place] [employer] (ADA) provides guidance for cutoff [...] Standards of Medical Care in Diabetes 2016, [place] [employer]. Diabetes Care. 2016.39(Suppl 1). Performed By: #### 2 4323-8 #### [facility] CLIA [id number] [address] [place] [address] [place] Potassium [Moles/Vol] 4.1 mmol/L Normal 3.7-5.[address] [facility] Comment on above: Order Comment: Jazmin moya Type: BLOOD SPECIMEN Ordering Facility: [facility] Address: [address] [id number] Performed By: #### 2 4323-8 #### [facility] CLIA [id number] [address] [place] [address] [place] Protein [Mass/Vol] 7.1 g/dL Normal 6.3-8.0 [facility] Comment on above: Order Comment: Speci men Type: BLOOD SPECIMEN Ordering Facility: [facility] Address: [address] [place] [address] Performed By: #### 2 4323-8 #### [facility] CLIA [id number] [address] [place] [address] [place] Sodium [Moles/Vol] 132 mmol/L Low 136-144 [facility] Comment on above: Order Comment: Speci men Type: BLOOD SPECIMEN Ordering Facility: [facility] Address: [address] [place] [address] Performed By: #### 2 4323-8 #### [facility] CLIA [id number] [address] [place] [address] [place] Urea nitrogen [Mass/Vol] 25 mg/dL High 7-21 [facility] Comment on above: Order Comment: Speci men Type: BLOOD SPECIMEN Ordering Facility: [facility] Address: [address] [place] [address] Performed By: #### 2 4323-8 #### [facility] CLIA [id number] [address] [place] [address] [place] TSH SerPl-aCncon 10-01-2024 TSH Qn 3.210 m[IU]/L Normal 0.270-4.200 [facility] Comment on above: Order Comment: Speci men Type: BLOOD SPECIMEN Ordering Facility: [facility] Address: [address] [place] [address] Performed By: #### 3 016-3 #### [facility] CLIA [id number] [address] [place] [address] [place] CNOVon 09-17-2024 CNOV Office Visit ([facility]) ESTEBAN WOODS ([id number]) 1935 [address] [facility] Date Time Provider Department 09/17/24 1:00 [...] declined Covid-19 Vaccine( - season) declined Esteban Woods is here [...] 2 tablets by mouth daily at bedtime. qo-ja-RB-vit A-fuycy-luw-coQ10 (DAILY MULTIVITAMIN) 200-100-500 mcg cap Take 1 [...] Cuff Size: Regular (more content not included)... 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 fa-xs-MH-vit T-ookfz-dtv-coQ10 (DAILY MULTIVITAMIN) 200-100-500 mcg cap Take 1 [...] deform (more content not included)... Normal [facility] CNOVon 06-27-2024 [facility] Office Visit ([facility]) ESTEBAN WOODS ([id number]) 1935 [address] [facility] Date Time Provider Department 06/27/24 1:00 PM KODAK HARDING During your visit today, we recorded the following information about you: Temperature Pulse Respiration Blood pressure 96.9 degrees 105/minute 18/minute 122/78 Weight Height 69.4 kg 1.575 m Kathy Garrett LPN 06/27/2024 2:08 PM Signed Patient is in office for a Transition of Care Visit following recent hospital stay. Patient was evaluated and treated at [facility] from 06-11-2024 to 06-15-2024 for UTI [...] Kodak Harding MD 06/27/2024 2:08 PM Signed Khai Woods is a 88 year old female.Patient is in office for a Transition of Care Visit following recent hospital stay. Patient was evaluated and treated at [facility] from 06-11-2024 to 06-15-2024 for UTI [...] 2 tablets by mouth daily at bedtime. ou-au-IU-vit E-utgvo-xwj-coQ10 (DAILY MULTIVITAMIN) 200-100-500 mcg cap Take 1 [...] p (more content not included)... Normal [facility] L503.7505on 06-25-2024 Natriuretic peptide B (Bld) [Mass/Vol] 4739 pg/mL High <=1800 [facility] Comment on above: Performed By: #### L 503.7505 #### [facility] [address] [place], [address] Culture, Blood (WB)on 2024 CUB Blood cultures x2, from two different sites No growth in 5 days. Normal [facility] Comment on above: Performed By: #### L 500.2500, L100.0100 #### [facility] [address] [place], [address] CUB Blood cultures x2, from two different sites No growth in 5 days. Normal [facility] Comment on above: Performed By: #### L 500.2500, L100.0100 #### [facility] [address] [place], [address] Absolute neutrophil countOrd ered By: Aster Ramsey on 06-14-2024 Neutrophils (Bld) [#/Vol] 13.0 10*3/uL High 2.0-7.7 [facility] Anion gap in Serum or Plasma Ordered By: Aster Ramsey on 06-14-2024 Anion gap [Moles/Vol] 13 mmol/L 5-15 [facility] BUN/creatinine ratioOrdered By: Aster Ramsey on 06-14-2024 Urea nitrogen/Creatinine [Mass ratio] 29.5 mg/mg High 10-20 [facility] Basophil percentageOrdered B y: Aster Ramsey on 06-14-2024 Basophils/100 WBC (Bld) 0.5 % 0-1 [facility] Bilirubin, totalOrdered By: Aster Ramsey on 06-14-2024 Bilirubin [Mass/Vol] 0.60 mg/dL 0.00-1.30 [facility] CBC W/Diff, Automatedon Absolute Lymph 1.94 X10 3/uL Normal 0.83-4.51 [facility] Comment on above: Performed By: #### L 500.2500, L100.0100 #### [facility] [address] [place], [address] Absolute Neut 13.0 X10 3/uL High 2.0-7.7 [facility] Comment on above: Performed By: #### L 500.2500, L100.0100 #### [facility] [address] [place], [address] Basophils/100 WBC (Bld) 0.5 % Normal 0-1 [facility] Comment on above: Performed By: #### L 500.2500, L100.0100 #### [facility] [address] [place], [address] Eosinophils/100 WBC (Bld) 0.7 % Normal 0-5 [facility] Comment on above: Performed By: #### L 500.2500, L100.0100 #### [facility] [address] [place], [address] Erythrocyte distribution width (RBC) [Ratio] 13.3 % Normal 11.6-14.6 [facility] Comment on above: Performed By: #### L 500.2500, L100.0100 #### [facility] [address] [place], [address] Hematocrit (Bld) [Volume fraction] 43.8 % Normal 37-47 [facility] Comment on above: Performed By: #### L 500.2500, L100.0100 #### [facility] [address] [place], [address] Hemoglobin (Bld) [Mass/Vol] 14.7 g/dL Normal 12.0-15.0 [facility] Comment on above: Performed By: #### L 500.2500, L100.0100 #### [facility] [address] [place], [address] IG% 0.700 Normal 0.0-0.9 [facility] Comment on above: Result Comment: IG% - Immature Granulocytes (promyelocytes, myelocytes and metamyelocytes) > 1% indicates that a LEFT SHIFT is Present. Performed By: #### L 500.2500, L100.0100 #### [facility] [address] [place], [address] Lymphocytes/100 WBC (Bld) 12.0 % Low 19-41 [facility] Comment on above: Performed By: #### L 500.2500, L100.0100 #### [facility] [address] [place], [address] MCH (RBC) [Entitic mass] 32.7 pg High 27.0-32.0 [facility] Comment on above: Performed By: #### L 500.2500, L100.0100 #### [facility] [address] [place], [address] MCHC (RBC) [Mass/Vol] 33.6 g/dL Normal 32-36 [facility] Comment on above: Performed By: #### L 500.2500, L100.0100 #### [facility] [address] [place], [address] MCV (RBC) [Entitic vol] 97.3 fL Normal 81-99 [facility] Comment on above: Performed By: #### L 500.2500, L100.0100 #### [facility] [address] [place], [address] Monocytes/100 WBC (Bld) 6.2 % Normal 0-10 [facility] Comment on above: Performed By: #### L 500.2500, L100.0100 #### [facility] [address] [place], [address] Neutrophils/100 WBC (Bld) 79.9 % High 47-70 [facility] Comment on above: Performed By: #### L 500.2500, L100.0100 #### [facility] [address] [place], [address] Nucleated RBC (Bld) [#/Vol] 0 10*3/uL Normal 0-5 [facility] Comment on above: Performed By: #### L 500.2500, L100.0100 #### [facility] [address] [place], [address] Platelet mean volume (Bld) [Entitic vol] 9.3 fL Normal 6.2-12.0 [facility] Comment on above: Performed By: #### L 500.2500, L100.0100 #### [facility] [address] [place], [address] Platelets (Bld) [#/Vol] 260 10*3/uL Normal 150-450 [facility] Comment on above: Performed By: #### L 500.2500, L100.0100 #### [facility] [address] [place], [address] RBC (Bld) [#/Vol] 4.50 10*6/uL Normal 4.2-5.4 [facility] Comment on above: Performed By: #### L 500.2500, L100.0100 #### [facility] [address] [place], [address] RDW SD 47.5 fl High 35.1-43.9 [facility] Comment on above: Performed By: #### L 500.2500, L100.0100 #### [facility] [address] [place], [address] WBC (Bld) [#/Vol] 16.2 10*3/uL High 4.4-11.0 [facility] Comment on above: Performed By: #### L 500.2500, L100.0100 #### [facility] [address] [place], [address] Carbon dioxide, total [Moles /volume] in Central venous bloodOrdered By: Aster Ramsey on 06-14-2024 CO2 [Moles/Vol] 23.8 mmol/L 21.0-32.0 [facility] Chloride assayOrdered By: Jovany Ramsey on 06-14-2024 Chloride [Moles/Vol] 97 mmol/L Low 98-108 [facility] Comprehensive Metabolic Prof ilon 06-14-2024 Albumin [Mass/Vol] 3.3 g/dL Low 3.4-4.8 [facility] Comment on above: Performed By: #### L 500.2500, L100.0100 #### [facility] [address] [place], [address] Albumin/Globulin [Mass ratio] 0.8 {ratio} Low 0.9-2.4 [facility] Comment on above: Performed By: #### L 500.2500, L100.0100 #### [facility] [address] [place], [address] ALK PHOS 70 U/L Normal 35-104 [facility] Comment on above: Performed By: #### L 500.2500, L100.0100 #### [facility] [address] [place], [address] ALT [Catalytic activity/Vol] 14 U/L Normal <=34 [facility] Comment on above: Performed By: #### L 500.2500, L100.0100 #### [facility] [address] [place], [address] AST [Catalytic activity/Vol] 19 U/L Normal <=31 [facility] Comment on above: Performed By: #### L 500.2500, L100.0100 #### [facility] [address] [place], [address] Bilirubin [Mass/Vol] 0.60 mg/dL Normal 0.00-1.30 [facility] Comment on above: Performed By: #### L 500.2500, L100.0100 #### [facility] [address] [place], [address] BUN/CRE 29.5 RATIO High 10-20 [facility] Comment on above: Performed By: #### L 500.2500, L100.0100 #### [facility] [address] [place], [address] Calcium [Mass/Vol] 9.7 mg/dL Normal 7.6-11.0 [facility] Comment on above: Performed By: #### L 500.2500, L100.0100 #### [facility] [address] [place], [address] Chloride [Moles/Vol] 97 mmol/L Low 98-108 [facility] Comment on above: Performed By: #### L 500.2500, L100.0100 #### [facility] [address] [place], [address] CO2 [Moles/Vol] 23.8 mmol/L Normal 21.0-32.0 [facility] Comment on above: Performed By: #### L 500.2500, L100.0100 #### [facility] [address] [place], [address] Creatinine [Mass/Vol] 1.11 mg/dL Normal 0.70-1.20 [facility] Comment on above: Performed By: #### L 500.2500, L100.0100 #### [facility] [address] [place], [address] ECRCL 32.00 ml/min Low 50-250 [facility] Comment on above: Performed By: #### L 500.2500, L100.0100 #### [facility] [address] [place], [address] GAP 13 Normal 5-15 [facility] Comment on above: Performed By: #### L 500.2500, L100.0100 #### [facility] [address] [place], [address] GFR/1.73 sq M.predicted among non-blacks MDRD (S/P/Bld) [Vol rate/Area] 48 mL/min/{1.73_m2} Low >60 [facility] Comment on above: Result Comment: mL/m in/1.73m2 CKD-EPI Creatinine Equation (2020) Performed By: #### L 500.2500, L100.0100 #### [facility] [address] [place], [address] Globulin (S) [Mass/Vol] 4.2 g/dL Normal 2.2-4.2 [facility] Comment on above: Performed By: #### L 500.2500, L100.0100 #### [facility] [address] [place], [address] Glucose [Mass/Vol] 166 mg/dL High 70-99 [facility] Comment on above: Performed By: #### L 500.2500, L100.0100 #### [facility] [address] [place], [address] Potassium [Moles/Vol] 3.4 mmol/L Normal 3.3-5.1 [facility] Comment on above: Performed By: #### L 500.2500, L100.0100 #### [facility] [address] [place], [address] Sodium [Moles/Vol] 135 mmol/L Normal 133-145 [facility] Comment on above: Performed By: #### L 500.2500, L100.0100 #### [facility] [address] [place], [address] T PROT 7.5 g/dL Normal 5.9-8.4 [facility] Comment on above: Performed By: #### L 500.2500, L100.0100 #### [facility] Laboratory [address] [place], [address] Urea nitrogen [Mass/Vol] 33 mg/dL High 4-19 [facility] Comment on above: Performed By: #### L 500.2500, L100.0100 #### [facility] [address] [place], [address] Eosinophil percentageOrdered By: Aster Ramsey on 06-14-2024 Eosinophils/100 WBC (Bld) 0.7 % 0-5 [facility] Erythrocyte distribution wid th ratioOrdered By: Aster Ramsey on 06-14-2024 Erythrocyte distribution width (RBC) [Ratio] 13.3 % 11.6-14.6 [facility] Erythrocyte distribution wid th standard deviationOrdered By: Aster Ramsey on 06-14-2024 Erythrocyte distribution width (RBC) [Entitic vol] 47.5 fL High 35.1-43.9 [facility] Estimation of creatinine rianna aranceOrdered By: Aster Ramsey on 06-14-2024 Estimated Creatinine Clearance Calc 32.00 ml/min Low 50-250 [facility] GFR/1.73 sq M.predicted elio g non-blacks MDRD (S/P/Bld) [Vol rate/Area]Ordered By: Aster Ramsey on 06-14-2024 Estimated GFR (MDRD) Non-Af Amer 48 Low >60 [facility] Comment on above: mL/min/1.73m2 CKD-EP I Creatinine Equation (2020) Hematocrit Auto (Bld) [Volum e fraction]Ordered By: Aster Ramsey on 06-14-2024 Hematocrit (Bld) [Volume fraction] 43.8 % 37-47 [facility] Hemoglobin measurementOrdere d By: Aster Ramsey on 06-14-2024 Hemoglobin (Bld) [Mass/Vol] 14.7 g/dL 12.0-15.0 [facility] Immature granulocytes/100 WB C Auto (Bld)Ordered By: Aster Ramsey on 06-14-2024 Immature granulocytes/100 WBC (Bld) 0.700 % 0.0-0.9 [facility] Comment on above: IG% - Immature Granu locytes (promyelocytes, myelocytes and metamyelocytes) > 1% indicates that a LEFT SHIFT is Present. Laboratory - Chemistry and C hemistry - challengeOrdered By: Aster Ramsey on 06-14-2024 AST [Catalytic activity/Vol] 19 U/L <32 [facility] Lymphocytes Auto (Unsp spec) [#/Vol]Ordered By: Aster Ramsey on 06-14-2024 Lymphocytes (Bld) [#/Vol] 1.94 10*3/uL 0.83-4.51 [facility] Lymphocytes/100 WBC Auto (Un sp spec)Ordered By: Aster Ramsey on 06-14-2024 Lymphocytes/100 WBC (Bld) 12.0 % Low 19-41 [facility] MCV (mean corpuscular volume ) determinationOrdered By: Aster Ramsey on 06-14-2024 MCV (RBC) [Entitic vol] 97.3 fL 81-99 [facility] Mean corpuscular hemoglobin (MCH) determinationOrdered By: Aster Ramsey on 06-14-2024 MCH (RBC) [Entitic mass] 32.7 pg High 27.0-32.0 [facility] Mean corpuscular hemoglobin concentration (MCHC) determinationOrdered By: Aster Ramsey on 06-14-2024 MCHC (RBC) [Mass/Vol] 33.6 g/dL 32-36 [facility] Mean platelet volume determi nationOrdered By: Aster Ramsey on 06-14-2024 Platelet mean volume (Bld) [Entitic vol] 9.3 fL 6.2-12.0 [facility] Monocyte percentageOrdered B y: Aster Ramsey on 06-14-2024 Monocytes/100 WBC (Bld) 6.2 % 0-10 [facility] Neutrophil percentageOrdered By: Aster Ramsey on 06-14-2024 Neutrophils/100 WBC (Bld) 79.9 % High 47-70 [facility] Nucleated red blood cell per centageOrdered By: Aster Ramsey on 06-14-2024 Nucleated RBC/100 WBC (Bld) [Ratio] 0 % 0-5 [facility] Platelet countOrdered By: Jovany Ramsey on 06-14-2024 Platelets (Bld) [#/Vol] 260 10*3/uL 150-450 [facility] Potassium (Unsp spec) [Mass/ Vol]Ordered By: Aster Ramsey on 06-14-2024 Potassium [Moles/Vol] 3.4 mmol/L 3.3-5.1 [facility] RBC Auto (Bld) [#/Vol]Ordere d By: Aster Ramsey on 06-14-2024 RBC (Bld) [#/Vol] 4.50 10*6/uL 4.2-5.4 [facility] Serum creatinine measurement (mass/volume)Ordered By: Aster Ramsey on 06-14-2024 Creatinine [Mass/Vol] 1.11 mg/dL 0.70-1.20 [facility] Serum globulin measurementOr dered By: Aster Ramsey on 06-14-2024 Globulin (S) [Mass/Vol] 4.2 g/dL 2.2-4.2 [facility] Serum glucose measurement (m ass/volume)Ordered By: Aster Ramsey on 06-14-2024 Glucose [Mass/Vol] 166 mg/dL High 70-99 [facility] Serum or plasma alanine ball otransferase (ALT) measurementOrdered By: Aster Ramsey on 06-14-2024 ALT [Catalytic activity/Vol] 14 U/L <35 [facility] Serum or plasma albumin sarbjit urement (mass/volume)Ordered By: Aster Ramsey on 06-14-2024 Albumin [Mass/Vol] 3.3 g/dL Low 3.4-4.8 [facility] Serum or plasma albumin/glob ulin mass ratioOrdered By: Aster Ramsey on 06-14-2024 Albumin/Globulin [Mass ratio] 0.8 {ratio} Low 0.9-2.4 [facility] Serum or plasma alkaline mauri sphatase measurementOrdered By: Aster Ramsey on 06-14-2024 ALP [Catalytic activity/Vol] 70 U/L 35-104 [facility] Serum or plasma calcium sarbjit urement (mass/volume)Ordered By: Aster Ramsey on 06-14-2024 Calcium [Mass/Vol] 9.7 mg/dL 7.6-11.0 [facility] Serum or plasma urea nitroge n measurement (mass/volume)Ordered By: Aster Ramsey on 06-14-2024 Urea nitrogen [Mass/Vol] 33 mg/dL High 4-19 [facility] Sodium levelOrdered By: Azam Ramsey on 06-14-2024 Sodium [Moles/Vol] 135 mmol/L 133-145 [facility] Total proteinOrdered By: Norma Ramsey on 06-14-2024 Protein [Mass/Vol] 7.5 g/dL 5.9-8.4 [facility] Urine Cultureon 06-14-2024 URC #2 Organism is too fastidious for routine susceptibility studies. Presumptive E. coli [place] Count 50,000-80,000 Aerococcus sanguinicola Aerococcus sanguinicola Presumptive [...] TMP SMX Islt GERI <=20 S Normal [facility] Comment on above: Performed By: #### L 500.2500, L100.0100 #### [facility] [address] [place], [address] White blood cell (WBC) count Ordered By: Aster Ramsey on 06-14-2024 WBC (Bld) [#/Vol] 16.2 10*3/uL High 4.4-11.0 [facility] Basic Metabolic Profile (BMP )on 06-13-2024 BUN/CRE 29.9 RATIO High 10-20 [facility] Comment on above: Performed By: #### L 500.2500, L100.0100 #### [facility] [address] [place], [address] Calcium [Mass/Vol] 10.0 mg/dL Normal 7.6-11.0 [facility] Comment on above: Performed By: #### L 500.2500, L100.0100 #### [facility] [address] [place], [address] Chloride [Moles/Vol] 99 mmol/L Normal 98-108 [facility] Comment on above: Performed By: #### L 500.2500, L100.0100 #### [facility] [address] [place], [address] CO2 [Moles/Vol] 24.1 mmol/L Normal 21.0-32.0 [facility] Comment on above: Performed By: #### L 500.2500, L100.0100 #### [facility] [address] [place], [address] Creatinine [Mass/Vol] 0.87 mg/dL Normal 0.70-1.20 [facility] Comment on above: Performed By: #### L 500.2500, L100.0100 #### [facility] [address] [place], [address] ECRCL 40.91 ml/min Low 50-250 [facility] Comment on above: Performed By: #### L 500.2500, L100.0100 #### [facility] [address] [place], [address] GAP 13 Normal 5-15 [facility] Comment on above: Performed By: #### L 500.2500, L100.0100 #### [facility] [address] [place], [address] GFR/1.73 sq M.predicted among non-blacks MDRD (S/P/Bld) [Vol rate/Area] 64 mL/min/{1.73_m2} Normal >60 [facility] Comment on above: Result Comment: mL/m in/1.73m2 CKD-EPI Creatinine Equation (2020) Performed By: #### L 500.2500, L100.0100 #### [facility] [address] [place], [address] Glucose [Mass/Vol] 122 mg/dL High 70-99 [facility] Comment on above: Performed By: #### L 500.2500, L100.0100 #### [facility] [address] [place], [address] Potassium [Moles/Vol] 4.0 mmol/L Normal 3.3-5.1 [facility] Comment on above: Performed By: #### L 500.2500, L100.0100 #### [facility] [address] [place], [address] Sodium [Moles/Vol] 136 mmol/L Normal 133-145 [facility] Comment on above: Performed By: #### L 500.2500, L100.0100 #### [facility] [address] [place], [address] Urea nitrogen [Mass/Vol] 26 mg/dL High 4-19 [facility] Comment on above: Performed By: #### L 500.2500, L100.0100 #### [facility] [address] [place], [address] CBC W/Diff, Automatedon 03-0 -2024 Absolute Lymph 1.86 X10 3/uL Normal 0.83-4.51 [facility] Comment on above: Performed By: #### L 500.2500, L100.0100 #### [facility] [address] [place], [address] Absolute Neut 12.9 X10 3/uL High 2.0-7.7 [facility] Comment on above: Performed By: #### L 500.2500, L100.0100 #### [facility] [address] [place], [address] Basophils/100 WBC (Bld) 0.5 % Normal 0-1 [facility] Comment on above: Performed By: #### L 500.2500, L100.0100 #### [facility] [address] [place], [address] Eosinophils/100 WBC (Bld) 0.6 % Normal 0-5 [facility] Comment on above: Performed By: #### L 500.2500, L100.0100 #### [facility] [address] [place], [address] Erythrocyte distribution width (RBC) [Ratio] 13.3 % Normal 11.6-14.6 [facility] Comment on above: Performed By: #### L 500.2500, L100.0100 #### [facility] [address] [place], [address] Hematocrit (Bld) [Volume fraction] 43.6 % Normal 37-47 [facility] Comment on above: Performed By: #### L 500.2500, L100.0100 #### [facility] [address] [place], [address] Hemoglobin (Bld) [Mass/Vol] 14.6 g/dL Normal 12.0-15.0 [facility] Comment on above: Performed By: #### L 500.2500, L100.0100 #### [facility] [address] [place], [address] IG% 0.500 Normal 0.0-0.9 [facility] Comment on above: Result Comment: IG% - Immature Granulocytes (promyelocytes, myelocytes and metamyelocytes) > 1% indicates that a LEFT SHIFT is Present. Performed By: #### L 500.2500, L100.0100 #### [facility] [address] [place], [address] Lymphocytes/100 WBC (Bld) 11.5 % Low 19-41 [facility] Comment on above: Performed By: #### L 500.2500, L100.0100 #### [facility] [address] [place], [address] MCH (RBC) [Entitic mass] 32.2 pg High 27.0-32.0 [facility] Comment on above: Performed By: #### L 500.2500, L100.0100 #### [facility] [address] [place], [address] MCHC (RBC) [Mass/Vol] 33.5 g/dL Normal 32-36 [facility] Comment on above: Performed By: #### L 500.2500, L100.0100 #### [facility] [address] [place], [address] MCV (RBC) [Entitic vol] 96.2 fL Normal 81-99 [facility] Comment on above: Performed By: #### L 500.2500, L100.0100 #### [facility] [address] [place], [address] Monocytes/100 WBC (Bld) 7.5 % Normal 0-10 [facility] Comment on above: Performed By: #### L 500.2500, L100.0100 #### [facility] [address] [place], [address] Neutrophils/100 WBC (Bld) 79.4 % High 47-70 [facility] Comment on above: Performed By: #### L 500.2500, L100.0100 #### [facility] [address] [place], [address] Nucleated RBC (Bld) [#/Vol] 0 10*3/uL Normal 0-5 [facility] Comment on above: Performed By: #### L 500.2500, L100.0100 #### [facility] [address] [place], [address] Platelet mean volume (Bld) [Entitic vol] 9.2 fL Normal 6.2-12.0 [facility] Comment on above: Performed By: #### L 500.2500, L100.0100 #### [facility] [address] [place], [address] Platelets (Bld) [#/Vol] 252 10*3/uL Normal 150-450 [facility] Comment on above: Performed By: #### L 500.2500, L100.0100 #### [facility] [address] [place], [address] RBC (Bld) [#/Vol] 4.53 10*6/uL Normal 4.2-5.4 [facility] Comment on above: Performed By: #### L 500.2500, L100.0100 #### [facility] [address] [place], [address] RDW SD 47.0 fl High 35.1-43.9 [facility] Comment on above: Performed By: #### L 500.2500, L100.0100 #### [facility] [address] [place], [address] WBC (Bld) [#/Vol] 16.2 10*3/uL High 4.4-11.0 [facility] Comment on above: Performed By: #### L 500.2500, L100.0100 #### [facility] [address] [place], [address] BNP,B-Type NATRIURETIC YANETHI Faiza 06-12-2024 Natriuretic peptide B (Bld) [Mass/Vol] 4739.0 pg/mL High 0-100 [facility] Comment on above: Order Comment: PROBN P RESULTS INCORRECTLY ENTERED INTO BNP TEST ORDER. Result Comment: PROB PROFESSOR OF HISTORY RESULTS INCORRECTLY ENTERED INTO BNP TEST ORDER. Performed By: #### L 503.6005, L501.2450, L500.4050, L100.0100 #### [facility] [address] [place], [address] Basic Metabolic Profile (BMP )on 06-12-2024 BUN/CRE 24.6 RATIO High 10-20 [facility] Comment on above: Performed By: #### L 500.2500, L100.0100 #### [facility] [address] [place], [address] Calcium [Mass/Vol] 9.9 mg/dL Normal 7.6-11.0 [facility] Comment on above: Performed By: #### L 500.2500, L100.0100 #### [facility] [address] [place], [address] Chloride [Moles/Vol] 95 mmol/L Low 98-108 [facility] Comment on above: Performed By: #### L 500.2500, L100.0100 #### [facility] [address] [place], [address] CO2 [Moles/Vol] 25.4 mmol/L Normal 21.0-32.0 [facility] Comment on above: Performed By: #### L 500.2500, L100.0100 #### [facility] [address] [place], [address] Creatinine [Mass/Vol] 0.85 mg/dL Normal 0.70-1.20 [facility] Comment on above: Performed By: #### L 500.2500, L100.0100 #### [facility] [address] [place], [address] ECRCL 42.05 ml/min Low 50-250 [facility] Comment on above: Performed By: #### L 500.2500, L100.0100 #### [facility] [address] [place], [address] GAP 13 Normal 5-15 [facility] Comment on above: Performed By: #### L 500.2500, L100.0100 #### [facility] [address] [place], [address] GFR/1.73 sq M.predicted among non-blacks MDRD (S/P/Bld) [Vol rate/Area] 66 mL/min/{1.73_m2} Normal >60 [facility] Comment on above: Result Comment: mL/m in/1.73m2 CKD-EPI Creatinine Equation (2020) Performed By: #### L 500.2500, L100.0100 #### [facility] [address] [place], [address] Glucose [Mass/Vol] 132 mg/dL High 70-99 [facility] Comment on above: Performed By: #### L 500.2500, L100.0100 #### [facility] [address] [place], [address] Potassium [Moles/Vol] 3.4 mmol/L Normal 3.3-5.1 [facility] Comment on above: Performed By: #### L 500.2500, L100.0100 #### [facility] [address] [place], [address] Sodium [Moles/Vol] 134 mmol/L Normal 133-145 [facility] Comment on above: Performed By: #### L 500.2500, L100.0100 #### [facility] [address] [place], [address] Urea nitrogen [Mass/Vol] 21 mg/dL High 4-19 [facility] Comment on above: Performed By: #### L 500.2500, L100.0100 #### [facility] [address] [place], [address] CBC W/Diff, Automatedon 03-0 4-2024 Absolute Lymph 1.98 X10 3/uL Normal 0.83-4.51 [facility] Comment on above: Performed By: #### L 500.2500, L100.0100 #### [facility] [address] [place], [address] Absolute Neut 10.2 X10 3/uL High 2.0-7.7 [facility] Comment on above: Performed By: #### L 500.2500, L100.0100 #### [facility] [address] [place], [address] Basophils/100 WBC (Bld) 0.4 % Normal 0-1 [facility] Comment on above: Performed By: #### L 500.2500, L100.0100 #### [facility] [address] [place], [address] Eosinophils/100 WBC (Bld) 0.7 % Normal 0-5 [facility] Comment on above: Performed By: #### L 500.2500, L100.0100 #### [facility] [address] [place], [address] Erythrocyte distribution width (RBC) [Ratio] 13.2 % Normal 11.6-14.6 [facility] Comment on above: Performed By: #### L 500.2500, L100.0100 #### [facility] [address] [place], [address] Hematocrit (Bld) [Volume fraction] 43.8 % Normal 37-47 [facility] Comment on above: Performed By: #### L 500.2500, L100.0100 #### [facility] [address] [place], [address] Hemoglobin (Bld) [Mass/Vol] 14.7 g/dL Normal 12.0-15.0 [facility] Comment on above: Performed By: #### L 500.2500, L100.0100 #### [facility] [address] [place], [address] IG% 0.600 Normal 0.0-0.9 [facility] Comment on above: Result Comment: IG% - Immature Granulocytes (promyelocytes, myelocytes and metamyelocytes) > 1% indicates that a LEFT SHIFT is Present. Performed By: #### L 500.2500, L100.0100 #### [facility] [address] [place], [address] Lymphocytes/100 WBC (Bld) 14.7 % Low 19-41 [facility] Comment on above: Performed By: #### L 500.2500, L100.0100 #### [facility] [address] [place], [address] MCH (RBC) [Entitic mass] 32.5 pg High 27.0-32.0 [facility] Comment on above: Performed By: #### L 500.2500, L100.0100 #### [facility] [address] [place], [address] MCHC (RBC) [Mass/Vol] 33.6 g/dL Normal 32-36 [facility] Comment on above: Performed By: #### L 500.2500, L100.0100 #### [facility] [address] [place], [address] MCV (RBC) [Entitic vol] 96.7 fL Normal 81-99 [facility] Comment on above: Performed By: #### L 500.2500, L100.0100 #### [facility] [address] [place], [address] Monocytes/100 WBC (Bld) 8.1 % Normal 0-10 [facility] Comment on above: Performed By: #### L 500.2500, L100.0100 #### [facility] [address] [place], [address] Neutrophils/100 WBC (Bld) 75.5 % High 47-70 [facility] Comment on above: Performed By: #### L 500.2500, L100.0100 #### [facility] [address] [place], [address] Nucleated RBC (Bld) [#/Vol] 0 10*3/uL Normal 0-5 [facility] Comment on above: Performed By: #### L 500.2500, L100.0100 #### [facility] [address] [place], [address] Platelet mean volume (Bld) [Entitic vol] 9.2 fL Normal 6.2-12.0 [facility] Comment on above: Performed By: #### L 500.2500, L100.0100 #### [facility] [address] [place], [address] Platelets (Bld) [#/Vol] 264 10*3/uL Normal 150-450 [facility] Comment on above: Performed By: #### L 500.2500, L100.0100 #### [facility] [address] [place], [address] RBC (Bld) [#/Vol] 4.53 10*6/uL Normal 4.2-5.4 [facility] Comment on above: Performed By: #### L 500.2500, L100.0100 #### [facility] [address] [place], [address] RDW SD 47.0 fl High 35.1-43.9 [facility] Comment on above: Performed By: #### L 500.2500, L100.0100 #### [facility] [address] [place], [address] WBC (Bld) [#/Vol] 13.5 10*3/uL High 4.4-11.0 [facility] Comment on above: Performed By: #### L 500.2500, L100.0100 #### [facility] [address] [place], [address] Echo Completeon 06-12-[address] [facility] [address] [place] [address] Echo Complete 06/12/24 1013 MR#: [id number] Acct: [id number] Name: ESTEBAN WOODS Rep #: [id number] : 1935 88 From: Demetrius Terrell MD [...] Dictated: 06/12/24 1013 Date Transcribed: 06/12/24 1323 Rail Project Engineer: Signed Normal [facility] Echocardiogram study reportO rdered By: Demetrius Terrell on 06-12-[address] [facility] [address] [place] [address] Echo Complete 06/12/24 1013 MR#: [id number] Acct: [id number] Name: ESTEBAN WOODS Rep #:[id number] : 1935 88 From: Demetrius Terrell MD Attending Dr: Dr. Junaid Travsi MD Status: ADM IN Ordering Dr: Junaid [...] Dictated: 06/12/24 1013 Date Transcribed: 06/12/24 1323 Rail Project Engineer: Signed [facility] Work Phone: Electrocardiogram reportOrde red By: Benjamín Hendrix on 06-12-2024 EKG study [facility] [address] [place] [address] 12 Lead EKG 06/11/24 1909 MR#: [id number] Acct: [id number] Name: ESTEBAN WOODS Rep #:[id number] : 1935 88 From: Benjamín oquendo MD [...] QRS Abnormal ECG Confirmed by Benjamín Hendrix ([id number]), slot editor ANSON COHEN ([id number]) on 06/12/2024 10:44:57 AM Referred By: Mio Benitez Confirmed By: Benjamín Hendrix 06/12/24 1044 Date _ Benjamín Hendrix MD CC: Dr. Junaid Travis MD; Dr. Mio Benitez MD; Dr. Kodak Harding MD; Dr. Bob Liu DO ~ Signed [facility] Other Phone: TSH DL <= 0.005 mIU/L QnOrde red By: Junaid Travis on 06-12-2024 Thyroid Stimulating Hormone (TSH) 3.320 uIU/mL 0.300-4.200 [facility] Thyroid Stim Hormone (TSH)on 06-12-2024 TSH 3.320 uIU/mL Normal 0.300-4.200 [facility] Comment on above: Performed By: #### L 503.6005, L501.2450, L500.4050, L100.0100 #### [facility] [address] [place], [address] 12 Lead EKGon 06-11-2024 12 Lead EKG [facility] [address] [place] [address] 12 Lead EKG 06/11/24 1909 MR#: [id number] Acct: [id number] Name: ESTEBAN WOODS Rep #: [id number] : 1935 88 From: Benjamín Hendrix MD [...] QRS Abnormal ECG Confirmed by Benjamín Hendrix ([id number]), slot editor ANSON COHEN ([id number]) on 06/12/2024 10:44:57 AM Referred By: Mio Benitez Confirmed By: Benjamín Hendrix 06/12/24 1044 Date Benjamín Hendrix MD CC: Dr. Junaid Travis MD; Dr. Mio Benitez MD; Dr. Kodak Harding MD; Dr. Bob Liu DO Signed Normal [facility] Amorphous sediment detection in urine sediment by light microscopyOrdered By: Bob Liu on 06-11-2024 Amorphous sediment LM Ql (Urine sed) 1+ [facility] BNP (brain natriuretic pepti de measurement)Ordered By: Bob Liu on 06-11-2024 Natriuretic peptide B (Bld) [Mass/Vol] 4739.0 pg/mL High 0-100 [facility] Bilirubin Test strip Ql (U)O rdered By: Bob Liu on 06-11-2024 Bilirubin Ql (U) Negative Negative [facility] Brain/Head without Contrasto n 06-11-2024 Brain/Head without Contrast [facility] [address] [place] [address] Brain/Head without Contrast MR#: [id number] Acct: [id number] Name: ESTEBAN WOODS Rep #: [id number] : 1935 F 88 From: Mio Blackwood MD PCP: Dr. Kodak Harding MD Status: PRE ER Study: Brain/Head without Contrast Date of Exam: 07/03 Exam# [id number] Ordering Dr: Bob Liu DO EXAM: BRAIN/HEAD [...] Kodak Harding MD; Dr. Bob Liu DO Rail Project Engineer: Signed Normal [facility] CBC W/Diff, Automatedon Absolute Lymph 3.12 X10 3/uL Normal 0.83-4.51 [facility] Comment on above: Performed By: #### L 503.6005, L501.2450, L500.4050, L100.0100 #### [facility] [address] [place], [address] Absolute Neut 10.2 X10 3/uL High 2.0-7.7 [facility] Comment on above: Performed By: #### L 503.6005, L501.2450, L500.4050, L100.0100 #### [facility] [address] [place], [address] Basophils/100 WBC (Bld) 0.6 % Normal 0-1 [facility] Comment on above: Performed By: #### L 503.6005, L501.2450, L500.4050, L100.0100 #### [facility] [address] [place], [address] Eosinophils/100 WBC (Bld) 0.8 % Normal 0-5 [facility] Comment on above: Performed By: #### L 503.6005, L501.2450, L500.4050, L100.0100 #### [facility] [address] [place], [address] Erythrocyte distribution width (RBC) [Ratio] 13.2 % Normal 11.6-14.6 [facility] Comment on above: Performed By: #### L 503.6005, L501.2450, L500.4050, L100.0100 #### [facility] [address] [place], [address] Hematocrit (Bld) [Volume fraction] 45.0 % Normal 37-47 [facility] Comment on above: Performed By: #### L 503.6005, L501.2450, L500.4050, L100.0100 #### [facility] [address] [place], [address] Hemoglobin (Bld) [Mass/Vol] 14.9 g/dL Normal 12.0-15.0 [facility] Comment on above: Performed By: #### L 503.6005, L501.2450, L500.4050, L100.0100 #### [facility] [address] [place], [address] IG% 0.500 Normal 0.0-0.9 [facility] Comment on above: Result Comment: IG% - Immature Granulocytes (promyelocytes, myelocytes and metamyelocytes) > 1% indicates that a LEFT SHIFT is Present. Performed By: #### L 503.6005, L501.2450, L500.4050, L100.0100 #### [facility] [address] [place], [address] Lymphocytes/100 WBC (Bld) 21.4 % Normal 19-41 [facility] Comment on above: Performed By: #### L 503.6005, L501.2450, L500.4050, L100.0100 #### [facility] [address] [place], [address] MCH (RBC) [Entitic mass] 32.5 pg High 27.0-32.0 [facility] Comment on above: Performed By: #### L 503.6005, L501.2450, L500.4050, L100.0100 #### [facility] [address] [place], [address] MCHC (RBC) [Mass/Vol] 33.1 g/dL Normal 32-36 [facility] Comment on above: Performed By: #### L 503.6005, L501.2450, L500.4050, L100.0100 #### [facility] [address] [place], [address] MCV (RBC) [Entitic vol] 98.0 fL Normal 81-99 [facility] Comment on above: Performed By: #### L 503.6005, L501.2450, L500.4050, L100.0100 #### [facility] [address] [place], [address] Monocytes/100 WBC (Bld) 7.0 % Normal 0-10 [facility] Comment on above: Performed By: #### L 503.6005, L501.2450, L500.4050, L100.0100 #### [facility] [address] [place], [address] Neutrophils/100 WBC (Bld) 69.7 % Normal 47-70 [facility] Comment on above: Performed By: #### L 503.6005, L501.2450, L500.4050, L100.0100 #### [facility] [address] [place], [address] Nucleated RBC (Bld) [#/Vol] 0 10*3/uL Normal 0-5 [facility] Comment on above: Performed By: #### L 503.6005, L501.2450, L500.4050, L100.0100 #### [facility] [address] [place], [address] Platelet mean volume (Bld) [Entitic vol] 9.4 fL Normal 6.2-12.0 [facility] Comment on above: Performed By: #### L 503.6005, L501.2450, L500.4050, L100.0100 #### [facility] [address] [place], [address] Platelets (Bld) [#/Vol] 262 10*3/uL Normal 150-450 [facility] Comment on above: Performed By: #### L 503.6005, L501.2450, L500.4050, L100.0100 #### [facility] [address] [place], [address] RBC (Bld) [#/Vol] 4.59 10*6/uL Normal 4.2-5.4 [facility] Comment on above: Performed By: #### L 503.6005, L501.2450, L500.4050, L100.0100 #### [facility] [address] [place], [address] RDW SD 47.4 fl High 35.1-43.9 [facility] Comment on above: Performed By: #### L 503.6005, L501.2450, L500.4050, L100.0100 #### [facility] [address], [address] WBC (Bld) [#/Vol] 14.6 10*3/uL High 4.4-11.0 [facility] Comment on above: Performed By: #### L 503.6005, L501.2450, L500.4050, L100.0100 #### [facility] [address] [place], [address] Chest 1 View (Portable)on Chest 1 View (Portable) [facility] Services [address] [place] [address] Chest 1 View (Portable) MR#: [id number] Acct: [id number] Name: ESTEBAN WOODS Rep #: [id number] : 1935 F 88 From: Mio Blackwood MD PCP: Dr. Kodak Harding MD Status: PRE ER Study: Chest 1 View (Portable) Date of Exam: 06/11/24 Exam# [id number] Ordering Dr: Bob Liu DO PROCEDURE: CHEST [...] Kodak Harding MD; Dr. Bob Liu DO Rail Project Engineer: Signed Normal [facility] Comprehensive Metabolic Prof ilon 06-11-2024 Albumin [Mass/Vol] 3.8 g/dL Normal 3.4-4.8 [facility] Comment on above: Performed By: #### L 503.6005, L501.2450, L500.4050, L100.0100 #### [facility] [address] [place], [address] Albumin/Globulin [Mass ratio] 0.9 {ratio} Normal 0.9-2.4 [facility] Comment on above: Performed By: #### L 503.6005, L501.2450, L500.4050, L100.0100 #### [facility] [address] [place], [address] ALK PHOS 80 U/L Normal 35-104 [facility] Comment on above: Performed By: #### L 503.6005, L501.2450, L500.4050, L100.0100 #### [facility] [address] [place], [address] ALT [Catalytic activity/Vol] 18 U/L Normal <=34 [facility] Comment on above: Performed By: #### L 503.6005, L501.2450, L500.4050, L100.0100 #### [facility] [address] [place], [address] AST [Catalytic activity/Vol] 39 U/L High <=31 [facility] Comment on above: Performed By: #### L 503.6005, L501.2450, L500.4050, L100.0100 #### [facility] [address] [place], [address] Bilirubin [Mass/Vol] 1.53 mg/dL High 0.00-1.30 [facility] Comment on above: Performed By: #### L 503.6005, L501.2450, L500.4050, L100.0100 #### [facility] [address] [place], [address] BUN/CRE 22.6 RATIO High 10-20 [facility] Comment on above: Performed By: #### L 503.6005, L501.2450, L500.4050, L100.0100 #### [facility] [address] [place], [address] Calcium [Mass/Vol] 10.3 mg/dL Normal 7.6-11.0 [facility] Comment on above: Performed By: #### L 503.6005, L501.2450, L500.4050, L100.0100 #### [facility] [address] [place], [address] Chloride [Moles/Vol] 95 mmol/L Low 98-108 [facility] Comment on above: Performed By: #### L 503.6005, L501.2450, L500.4050, L100.0100 #### [facility] [address] [place], [address] CO2 [Moles/Vol] 22.6 mmol/L Normal 21.0-32.0 [facility] Comment on above: Performed By: #### L 503.6005, L501.2450, L500.4050, L100.0100 #### [facility] [address] [place], [address] Creatinine [Mass/Vol] 1.00 mg/dL Normal 0.70-1.20 [facility] Comment on above: Performed By: #### L 503.6005, L501.2450, L500.4050, L100.0100 #### [facility] [address] [place], [address] GAP 15 Normal 5-15 [facility] Comment on above: Performed By: #### L 503.6005, L501.2450, L500.4050, L100.0100 #### [facility] [address] [place], [address] GFR/1.73 sq M.predicted among non-blacks MDRD (S/P/Bld) [Vol rate/Area] 54 mL/min/{1.73_m2} Low >60 [facility] Comment on above: Result Comment: mL/m in/1.73m2 CKD-EPI Creatinine Equation (2020) Performed By: #### L 503.6005, L501.2450, L500.4050, L100.0100 #### [facility] [address] [place], [address] Globulin (S) [Mass/Vol] 4.4 g/dL High 2.2-4.2 [facility] Comment on above: Performed By: #### L 503.6005, L501.2450, L500.4050, L100.0100 #### [facility] [address] [place], [address] Glucose [Mass/Vol] 113 mg/dL High 70-99 [facility] Comment on above: Performed By: #### L 503.6005, L501.2450, L500.4050, L100.0100 #### [facility] [address] [place], [address] Potassium [Moles/Vol] 3.9 mmol/L Normal 3.3-5.1 [facility] Comment on above: Performed By: #### L 503.6005, L501.2450, L500.4050, L100.0100 #### [facility] [address] [place], [address] Sodium [Moles/Vol] 133 mmol/L Normal 133-145 [facility] Comment on above: Performed By: #### L 503.6005, L501.2450, L500.4050, L100.0100 #### [facility] [address] [place], [address] T PROT 8.2 g/dL Normal 5.9-8.4 [facility] Comment on above: Performed By: #### L 503.6005, L501.2450, L500.4050, L100.0100 #### [facility] [address] [place], [address] Urea nitrogen [Mass/Vol] 23 mg/dL High 4-19 [facility] Comment on above: Performed By: #### L 503.6005, L501.2450, L500.4050, L100.0100 #### [facility] [address] [place], [address] Emergency Department Summary on 06-11-2024 Emergency Department Summary [facility] Medical Records Department [address] [place] [address] Emergency Department Summary 06/11/24 MR#: [id number] Acct: [id number] Name: ESTEBAN WOODS Rep #: [id number] : 1935 88 From: Bob Liu DO PCP: Dr. Kodak Harding MD Status:ADM IN Location: ICU ICU-[facility] History of Present Illness Chief Complaint: [facility] Medical History (Updated 06/11/24 @ 22:39 [...] others: The patient's son Consults: Neurosurgery at [facility] Emergency is Dr. Donaldson, Internal Medicine (Dr. [...] without significant (more content not included)... Normal [facility] Epithelial cells.squamous LM Ql (Urine sed)Ordered By: Bob Liu on 06-11-2024 Epithelial cells.squamous LM.HPF (Urine sed) [#/Area] 0 /[HPF] 5-10 [facility] Glucose Ql (U)Ordered By: Alexandria Liu on 06-11-2024 Urine Glucose (UA) Normal mg/dl Normal [facility] Ketones Test strip Ql (U)Ord ered By: Bob Liu on 06-11-2024 Ketones Ql (U) Negative Negative [facility] L499.0042on 06-11-2024 Trop T Delta 5 Normal [facility] Comment on above: Result Comment: Goran ntial recent MT,CKD,LVH* Consider a third Troponin for Suspected ACS If clinical suspicion for ACS is high, suggest getting a third troponin. Otherwise, stress test or CTCA. Performed By: #### L 500.2500, L100.0100 #### [facility] [address] [place], [address] Trop T High Sen 59 ng/L Invalid Interpretation Code <=14 [facility] Comment on above: Result Comment: Crit ical Result(s) Called at: by ANA BARTON TO MARIELLA DECKER??Results read back by same. Performed By: #### L 500.2500, L100.0100 #### [facility] [address] [place], [address] L499.0043on 06-11-2024 Trop T Delta 3 Normal [facility] Comment on above: Result Comment: Down stream testing and, if negative, consider other etiologies for elevated troponin. Performed By: #### L 503.6005, L501.2450, L500.4050, L100.0100 #### [facility] [address] [place], [address] Trop T High Sen 61 ng/L Invalid Interpretation Code <=14 [facility] Comment on above: Result Comment: Crit ical Result(s) Called at:2339 by: LAMAR ALCANTAR??Results read back by same. Performed By: #### L 503.6005, L501.2450, L500.4050, L100.0100 #### [facility] [address] [place], [address] L501.4021on 06-11-2024 Trop T High Sen 64 ng/L Invalid Interpretation Code <=14 [facility] Comment on above: Result Comment: Crit ical Result(s) Called at: by ANA CERVANTES (ED)??Results read back by same. Performed By: #### L 500.2500, L100.0100 #### [facility] [address] [place], [place], [address] Lactic Acidon 06-11-2024 Lactate [Moles/Vol] 3.1 mmol/L Invalid Interpretation Code 0.0-2.0 [facility] Comment on above: Order Comment: Y Result Comment: Crit ical Result(s) Called at: by ANA BARTON TO BILLY (ED)??Results read back by same. Performed By: #### L 503.6005, L501.2450, L500.4050, L100.0100 #### [facility] [address] [place], [address] Lactic acid measurementOrder ed By: Bob Liu on 06-11-2024 Lactate [Moles/Vol] 3.1 mmol/L High 0.0-2.0 [facility] Comment on above: Critical Result(s) C alled at: by ANA BARTON TO DANICA (ED) Results read back by same. Lipaseon 06-11-2024 Lipase [Catalytic activity/Vol] 20 U/L Normal 13-75 [facility] Comment on above: Result Comment: Plea se note: LIPASE revised reference range effective 22. New Lipase methodology. Expected to produce lower values than the previous assay method. NEW Reference Range: 13 - 75 U/L Performed By: #### L 503.6005, L501.2450, L500.4050, L100.0100 #### [facility] [address] [place], [place], [address] Lipase measurementOrdered By : Bob Liu on 06-11-2024 Lipase [Catalytic activity/Vol] 20 U/L 13-75 [facility] Comment on above: Please note:LIPASE r evised reference range effective 22. New Lipase methodology. Expected to produce lower values than the previous assay method. NEW Reference Range: 13 - 75 U/L Microscopic analysis of urin e for red blood cells (RBC)Ordered By: Bob Liu on 06-11-2024 Urine RBC 0 SEEN /hpf 0-5 [facility] Mucus LM Ql (Urine sed)Order ed By: Bob Liu on 06-11-2024 Mucus Ql (Urine sed) 0 SEEN /hpf [facility] Nitrite Test strip Ql (U)Ord ered By: Bob Liu on 06-11-2024 Nitrite Ql (U) Negative Negative [facility] No Panel InformationOrdered By: Bob Liu on 06-11-2024 Troponin T Hi Sensitivity 4Hr Delta 3 [facility] Comment on above: Downstream testing a nd, if negative, consider other etiologies for elevated troponin. Troponin T Hi Sensitivity 2Hr Delta 5 [facility] Comment on above: Potential recent MT, CKD,LVH* Consider a third Troponin for Suspected ACSIf clinical suspicion for ACS is high, suggest getting a third troponin. Otherwise, stress test or CTCA. Troponin T High Sensitivity 64 ng/L High <14 [facility] Comment on above: Critical Result(s) C alled at: by ANA CERVANTES (ED) Results read back by same. Protein Test strip Ql (U)Ord ered By: Bob Liu on 06-11-2024 Protein Ql (U) 100 mg/dl High Negative [facility] Troponin T.cardiac High sens itivity method [Mass/Vol]Ordered By: Bob Liu on 06-11-2024 Troponin T High Sensitivity 4 Hour 61 ng/L High <14 [facility] Comment on above: Critical Result(s) C alled at:2339 by: LAMAR ALCANTAR Results read back by same. Troponin T High Sensitivity 2 Hour 59 ng/L High <14 [facility] Comment on above: Critical Result(s) C alled at: by ANA DECKER Results read back by same. Urinalysis, Completeon 06-11 AMORPHOUS 1+ Normal [facility] Comment on above: Order Comment: CLEAN CATCH Performed By: #### L 400.0001 #### [facility] [address] [place], [place], [address] BACTERIA 4+ /hpf Normal None Seen [facility] Comment on above: Order Comment: CLEAN CATCH Performed By: #### L 400.0001 #### [facility] [address] [place], [address] RBC 0 SEEN Normal 0-5 [facility] Comment on above: Order Comment: CLEAN CATCH Performed By: #### L 400.0001 #### [facility] [address] [place], [address] WBC 0-5 SEEN Normal 0-5 [facility] Comment on above: Order Comment: CLEAN CATCH Performed By: #### L 400.0001 #### [facility] [address] [place], [address] EPI,SQUAMOUS 0 SEEN Normal 5-10 [facility] Comment on above: Order Comment: CLEAN CATCH Performed By: #### L 400.0001 #### [facility] [address] [place], [address] Mucus Ql (Urine sed) 0 SEEN Normal [facility] Comment on above: Order Comment: CLEAN CATCH Performed By: #### L 400.0001 #### [facility] [address] [place], [address] Urine blood detectionOrdered By: Bob Liu on 06-11-2024 Urine Occult Blood 25 /ul High Negative [facility] Urine clarityOrdered By: Candy Liu on 06-11-2024 Clarity (U) Cloudy Clear [facility] Urine color determinationOrd ered By: Bob Liu on 06-11-2024 Color (U) Yellow Yellow [facility] Urine cultureOrdered By: Candy Liu on 06-11-2024 Bacteria identified Cx Nom (U) Presumptive E. coli Abnormal [facility] Bacteria identified Cx Nom (U) Aerococcus sanguinicola Abnormal [facility] Urine leukocyte esterase det ection by dipstickOrdered By: Bob Liu on 06-11-2024 Leukocyte esterase Test strip Ql (U) 25 /ul High Negative [facility] Urine pHOrdered By: Bob radford on 06-11-2024 pH (U) 6.5 [pH] 5.0 - 8.0 [facility] Urine sediment bacteria coun t by microscopy (number/high power field)Ordered By: Bob Liu on 06-11-2024 Bacteria LM.HPF (Urine sed) [#/Area] 4 /[HPF] None Seen [facility] Urine specific gravity measu rementOrdered By: Bob Liu on 06-11-2024 Specific gravity (U) [Rel density] 1.015 1.002-1.030 [facility] Urobilinogen Ql (U)Ordered B y: Bob Liu on 06-11-2024 Urobilinogen (U) [Mass/Vol] 8 mg/dL High Normal [facility] White blood cell countOrdere d By: Bob Liu on 06-11-2024 Urine WBC 0-5 SEEN /hpf 0-5 [facility] CNOVon 03-19-2024 CNOV Office Visit (FAMMAS) ESTEBAN WOODS ([id number]) 1935 F T Date Time Provider Department [...] Take 81 mg by mouth once daily. wm-fi-OW-vit O-zeina-rhr-coQ10 (DAILY MULTIVITAMIN) 200-100-500 mcg cap Take 1 [...] m (more content not included)... Normal [facility] CBC W Auto Differential pane l (Bld)on 10-31-2023 Basophils (Bld) [#/Vol] 0.06 10*3/uL Normal <0.11 [facility] Comment on above: Order Comment: Speci men Type: BLOOD SPECIMEN Ordering Facility: [facility] Address: [address] [place] [address] Performed By: #### 5 7021-8 #### [facility] CLIA [id number] [address] [place], [place] [id number] [place] Basophils/100 WBC (Bld) 0.6 % Normal C [facility] Comment on above: Order Comment: Speci men Type: BLOOD SPECIMEN Ordering Facility: [facility] Address: [address] [place] [address] Performed By: #### 5 7021-8 #### [facility] CLIA [id number] [address] [place] [address] [place] Differential cell count method Nom (Bld) Auto Normal [facility] Comment on above: Order Comment: Speci men Type: BLOOD SPECIMEN Ordering Facility: [facility] Address: [address] [place] [address] Performed By: #### 5 7021-8 #### [facility] CLIA [id number] [address] [place] [address] [place] Eosinophils (Bld) [#/Vol] 0.13 10*3/uL Normal <0.46 [facility] Comment on above: Order Comment: Speci men Type: BLOOD SPECIMEN Ordering Facility: [facility] Address: [address] [place] [address] Performed By: #### 5 7021-8 #### [facility] CLIA [id number] [address] [place] [address] [place] Eosinophils/100 WBC (Bld) 1.3 % Normal [facility] Comment on above: Order Comment: Speci men Type: BLOOD SPECIMEN Ordering Facility: [facility] Address: [address] [place] [address] Performed By: #### 5 7021-8 #### [facility] CLIA [id number] [address] [place] [address] [place] Erythrocyte distribution width (RBC) [Ratio] 12.7 % Normal 11.5-15.0 [facility] Comment on above: Order Comment: Speci men Type: BLOOD SPECIMEN Ordering Facility: [facility] Address: [address] [place] [address] Performed By: #### 5 7021-8 #### [facility] CLIA [id number] [address] [place] [address] [place] Hematocrit (Bld) [Volume fraction] 39.6 % Normal 36.0-46.0 [facility] Comment on above: Order Comment: Speci men Type: BLOOD SPECIMEN Ordering Facility: [facility] Address: [address] [place] [address] Performed By: #### 5 7021-8 #### [facility] CLIA [id number] [address] [place] [address] [place] Hemoglobin (Bld) [Mass/Vol] 13.3 g/dL Normal 11.5-15.5 [facility] Comment on above: Order Comment: Speci men Type: BLOOD SPECIMEN Ordering Facility: [facility] Address: [address] [place] [address] Performed By: #### 5 7021-8 #### [facility] CLIA [id number] [address] [place] [address] [place] Immature granulocytes (Bld) [#/Vol] 0.04 10*3/uL Normal <0.10 [facility] Comment on above: Order Comment: Speci men Type: BLOOD SPECIMEN Ordering Facility: [facility] Address: [address] [place] [address] Performed By: #### 5 7021-8 #### [facility] CLIA [id number] [address] [place] [address] [place] Immature granulocytes/100 WBC (Bld) 0.4 % Normal [facility] Comment on above: Order Comment: Speci men Type: BLOOD SPECIMEN Ordering Facility: [facility] Address: [address] [place] [address] Performed By: #### 5 7021-8 #### [facility] CLIA [id number] [address] [place] [address] [place] Lymphocytes (Bld) [#/Vol] 2.15 10*3/uL Normal 1.00-4.00 [facility] Comment on above: Order Comment: Speci men Type: BLOOD SPECIMEN Ordering Facility: [facility] Address: [address] [place] [address] Performed By: #### 5 7021-8 #### [id number] [address] [place] [address] [place] Lymphocytes/100 WBC (Bld) 20.8 % Normal [facility] Comment on above: Order Comment: Speci men Type: BLOOD SPECIMEN Ordering Facility: [facility] Address: [address] [place] [address] Performed By: #### 5 7021-8 #### [facility] [id number] [address] [place] [address] [place] MCH (RBC) [Entitic mass] 32.0 pg Normal 26.0-34.0 [facility] Comment on above: Order Comment: Speci men Type: BLOOD SPECIMEN Ordering Facility: [facility] Address: [address] [place] [address] Performed By: #### 5 7021-8 #### [facility] [id number] [address] [place] [address] [place] MCHC (RBC) [Mass/Vol] 33.6 g/dL Normal 30.5-36.[address] [facility] Comment on above: Order Comment: Speci men Type: BLOOD SPECIMEN Ordering Facility: [facility] Address: [address] [place] [address] Performed By: #### 5 7021-8 #### [facility] [id number] [address] [place] [address] [place] MCV (RBC) [Entitic vol] 95.4 fL Normal 80.0-100.0 C [facility] Comment on above: Order Comment: Speci men Type: BLOOD SPECIMEN Ordering Facility: [facility] Address: [address] [place] [address] Performed By: #### 5 7021-8 #### [facility] CLIA [id number] [address] [place] [address] [place] Monocytes (Bld) [#/Vol] 0.75 10*3/uL Normal <0.87 [facility] Comment on above: Order Comment: Speci men Type: BLOOD SPECIMEN Ordering Facility: [facility] Address: [address] [place] [address] Performed By: #### 5 7021-8 #### [facility] CLIA [id number] [address] [place] [address] [place] Monocytes/100 WBC (Bld) 7.3 % Normal C [facility] Comment on above: Order Comment: Speci men Type: BLOOD SPECIMEN Ordering Facility: [facility] Address: [address] [place] [address] Performed By: #### 5 7021-8 #### [facility] CLIA [id number] [address] [place] [address] [place] Neutrophils (Bld) [#/Vol] 7.19 10*3/uL Normal 1.45-7.50 [facility] Comment on above: Order Comment: Speci men Type: BLOOD SPECIMEN Ordering Facility: [facility] Address: [address] [place] [address] Performed By: #### 5 7021-8 #### [facility] CLIA [id number] [address] [place] [address] [place] Neutrophils/100 WBC (Bld) 69.6 % Normal [facility] Comment on above: Order Comment: Speci men Type: BLOOD SPECIMEN Ordering Facility: [facility] Address: [address] [place] [address] Performed By: #### 5 7021-8 #### [facility] CLIA [id number] [address] [place], [place] [address] [place] Nucleated RBC (Bld) [#/Vol] 10*3/uL Normal <0.01 [facility] Comment on above: Order Comment: Speci men Type: BLOOD SPECIMEN Ordering Facility: [facility] Address: [address] [place] [address] Performed By: #### 5 7021-8 #### [facility] CLIA [id number] [address] [place] [address] [place] Nucleated RBC/100 WBC (Bld) [Ratio] 0.0 /100 WBC Normal [facility] Comment on above: Order Comment: Speci men Type: BLOOD SPECIMEN Ordering Facility: [facility] Address: [address] [place] [address] Performed By: #### 5 7021-8 #### [facility] CLIA [id number] [address] [place] [address] [place] Platelet mean volume (Bld) [Entitic vol] 9.2 fL Normal 9.0-12.7 [facility] Comment on above: Order Comment: Speci men Type: BLOOD SPECIMEN Ordering Facility: [facility] Address: [address] [place] [address] Performed By: #### 5 7021-8 #### [facility] CLIA [id number] [address] [place] [address] [place] Platelets (Bld) [#/Vol] 229 10*3/uL Normal 150-400 [facility] Comment on above: Order Comment: Speci men Type: BLOOD SPECIMEN Ordering Facility: [facility] Address: [address] [place] [address] Performed By: #### 5 7021-8 #### [facility] CLIA [id number] [address] [place] [address] [place] RBC (Bld) [#/Vol] 4.15 10*6/uL Normal 3.90-5.20 [facility] Comment on above: Order Comment: Speci men Type: BLOOD SPECIMEN Ordering Facility: [facility] Address: [address] [place] [address] Performed By: #### 5 7021-8 #### [facility] CLIA [id number] [address] [place] [address] [place] WBC (Bld) [#/Vol] 10.32 10*3/uL Normal 3.70-11.00 [facility] Comment on above: Order Comment: Speci men Type: BLOOD SPECIMEN Ordering Facility: [facility] Address: [address] [place] [address] Performed By: #### 5 7021-8 #### [facility] CLIA [id number] [address] [place] [address] [place] Comprehensive metabolic 2000 panelon 10-31-2023 Albumin [Mass/Vol] 4.0 g/dL Normal 3.9-4.9 [facility] Comment on above: Order Comment: Speci men Type: BLOOD SPECIMEN Ordering Facility: [facility] Address: [address] [place] [address] Performed By: #### 2 4323-8 #### [facility] CLIA [id number] [address] [place] [address] [place] ALP [Catalytic activity/Vol] 73 U/L Normal 34-123 [facility] Comment on above: Order Comment: Speci men Type: BLOOD SPECIMEN Ordering Facility: [facility] Address: [address] [place] [address] Performed By: #### 2 4323-8 #### [facility] CLIA [id number] [address] [place] [address] [place] ALT [Catalytic activity/Vol] 12 U/L Normal 7-38 [facility] Comment on above: Order Comment: Speci men Type: BLOOD SPECIMEN Ordering Facility: [facility] Address: [address] [place] [address] Performed By: #### 2 4323-8 #### [facility] CLIA [id number] [address] [place] [address] [place] Anion gap [Moles/Vol] 10 mmol/L Normal 8-[address] [facility] Comment on above: Order Comment: Speci men Type: BLOOD SPECIMEN Ordering Facility: [facility] Address: [address] [place] [address] Performed By: #### 2 4323-8 #### [facility] CLIA [id number] [address] [place] [address] [place] AST [Catalytic activity/Vol] 17 U/L Normal 13-35 [facility] Comment on above: Order Comment: Speci men Type: BLOOD SPECIMEN Ordering Facility: [facility] Address: [address] [place] [address] Performed By: #### 2 4323-8 #### [facility] CLIA [id number] [address] [place] [address] [place] Bilirubin [Mass/Vol] 1.2 mg/dL Normal 0.2-1.3 [facility] Comment on above: Order Comment: Speci men Type: BLOOD SPECIMEN Ordering Facility: [facility] Address: [address] [place] [address] Performed By: #### 2 4323-8 #### [facility] CLIA [id number] [address] [place] [address] [place] Calcium [Mass/Vol] 10.3 mg/dL High 8.5-10.2 [facility] Comment on above: Order Comment: Speci men Type: BLOOD SPECIMEN Ordering Facility: [facility] Address: [address] [place] [address] Performed By: #### 2 4323-8 #### [facility] CLIA [id number] [address] [place] [address] [place] Chloride [Moles/Vol] 99 mmol/L Normal 98-107 [facility] Comment on above: Order Comment: Speci men Type: BLOOD SPECIMEN Ordering Facility: [facility] Address: [address] [place], [place] [address] Performed By: #### 2 4323-8 #### [id number] [address] [place] [address] [place] CO2 [Moles/Vol] 25 mmol/L Normal 22-30 [facility] Comment on above: Order Comment: Speci men Type: BLOOD SPECIMEN Ordering Facility: [facility] Address: [address] [place] [address] Performed By: #### 2 4323-8 #### [facility] [id number] [address] [place] [address] [place] [facility] Creatinine [Mass/Vol] 0.95 mg/dL Normal 0.58-0.[address] [facility] Comment on above: Order Comment: Speci men Type: BLOOD SPECIMEN Ordering Facility: [facility] Address: [address] [place] [address] Performed By: #### 2 4323-8 #### [facility] [id number] [address] [place] [address] Creatinine and Glomerular filtration rate.predicted panel (S/P/Bld) 58 mL/min/1.73m??? Low >=60 [facility] Comment on above: Order Comment: Speci men Type: BLOOD SPECIMEN Ordering Facility: [facility] Address: [address] [place], [place] [address] Result Comment: Dana mated Glomerular Filtration Rate [...] GFR. Performed By: #### 2 4323-8 #### [facility] CLIA [id number] [address] [place] [address] [place] Glucose [Mass/Vol] 90 mg/dL Normal 74-99 [facility] Comment on above: Order Comment: Speci men Type: BLOOD SPECIMEN Ordering Facility: [facility] Address: [address] [place], [place] [address] Result Comment: The [place] Diabetes [employer] (ADA) provides guidance for cutoff [...] Standards of Medical Care in Diabetes 2016, [place] [employer]. Diabetes Care. 2016.39(Suppl 1). Performed By: #### 2 4323-8 #### [facility] CLIA [id number] [address] [place] [address] [place] Potassium [Moles/Vol] 3.9 mmol/L Normal 3.7-5.[address] [facility] Comment on above: Order Comment: Speci men Type: BLOOD SPECIMEN Ordering Facility: [facility] Address: [address] [place] [address] Performed By: #### 2 4323-8 #### [facility] CLIA [id number] [address] [place] [address] [place] Protein [Mass/Vol] 7.1 g/dL Normal 6.3-8.0 [facility] Comment on above: Order Comment: Speci men Type: BLOOD SPECIMEN Ordering Facility: [facility] Address: [address] [place] [address] Performed By: #### 2 4323-8 #### [facility] CLIA [id number] [address] [place] [address] [place] Sodium [Moles/Vol] 134 mmol/L Low 136-144 [facility] Comment on above: Order Comment: Speci men Type: BLOOD SPECIMEN Ordering Facility: [facility] Address: [address] [place] [address] Performed By: #### 2 4323-8 #### [facility] CLIA [id number] [address] [place] [address] [place] Urea nitrogen [Mass/Vol] 31 mg/dL High 7-21 [facility] Comment on above: Order Comment: Speci men Type: BLOOD SPECIMEN Ordering Facility: [facility] Address: [address] [place] [address] Performed By: #### 2 4323-8 #### [facility] CLIA [id number] [address] [place] [address] [place] Lipid 1996 panelon 4 Cholesterol [Mass/Vol] 97 mg/dL Normal <200 [facility] Comment on above: Order Comment: Speci men Type: BLOOD SPECIMEN Ordering Facility: [facility] Address: [address] [place] [address] Result Comment: <200 mg/dL, Desirable 200-239 mg/dL, Borderline high >239 mg/dL, High Performed By: #### 2 4331-1 #### [facility] CLIA [id number] [address] [place] [address] [place] [facility] CLIA [id number] [address] [place] [address] [place] D[place] #### 3016-3 #### [facility] CLIA [id number] [address] [place] [address] [place] Cholesterol in HDL [Mass/Vol] 48 mg/dL Normal >39 [facility] Comment on above: Order Comment: Speci men Type: BLOOD SPECIMEN Ordering Facility: [facility] Address: [address] [place] [address] Result Comment: 40-5 9 mg/dL, Acceptable >59 mg/dL, High: Negative risk factor for coronary heart disease <40 mg/dL, Low: Positive risk factor for coronary heart disease Performed By: #### 2 4331-1 #### [facility] CLIA [id number] [address] [place] [address] [place] [facility] CLIA [id number] [address] [place] [address] [place] D[place] #### 3016-3 #### [facility] CLIA [id number] [address] [place] [address] [place] Cholesterol in LDL [Mass/Vol] 36 mg/dL Normal <100 [facility] Comment on above: Order Comment: Jazmin moya Type: BLOOD SPECIMEN Ordering Facility: [facility] Address: [address] [place] [address] Result Comment: <100 mg/dL, Optimal 100-129 mg/dL, Near optimal/above optimal 130-159 mg/dL, Borderline high 160-189 mg/dL, High >189 mg/dL, Very high Secondary prevention optimal LDL Cholesterol levels are recommended to be < 70 mg/dL Performed By: #### 2 4331-1 #### [facility] CLIA [id number] [address] [place] [address] [place] [facility] CLIA [id number] [address] [place] [address] [place] #### 3016-3 #### [facility] CLIA [id number] [address] [place] [address] [place] Cholesterol in LDL/Cholesterol in HDL [Mass ratio] 0.75 {ratio} Normal <2.54 [facility] Comment on above: Order Comment: Jazmin men Type: BLOOD SPECIMEN Ordering Facility: [facility] Address: [address] [place] [address] Result Comment: Roxie paz: 1. National Cholesterol Education Program ATP III Guideline At-A-Glance Quick Desk Reference: National Heart, Lung, and Blood [place]. National Institutes of Health. 2001: NIH Publication No. 01-3305. 2. An International Atherosclerosis Society position paper: global recommendations for the management of dyslipidemia: executive summary, Atherosclerosis. 2014: 232(2):410-413. Performed By: #### 2 4331-1 #### [facility] CLIA [id number] [facility] [place] [address] [place] [facility] CLIA [id number] [place] [address] [place] #### 3016-3 #### [facility] CLIA [id number] [address] [place] [address] [place] Cholesterol in VLDL [Mass/Vol] 13 mg/dL Normal <30 [facility] Comment on above: Order Comment: Speci men Type: BLOOD SPECIMEN Ordering Facility: [facility] Address: [address] [place] [address] Performed By: #### 2 4331-1 #### [facility] CLIA [id number] [address] [place] [address] [place] [facility] [id number] [address] [place] [address] [place] #### 3016-3 #### [facility] CLIA [id number] [address] [place] [address] [place] Cholesterol non HDL [Mass/Vol] 49 mg/dL Normal <130 [facility] Comment on above: Order Comment: Speci men Type: BLOOD SPECIMEN Ordering Facility: [facility] Address: [address] [place] [address] Result Comment: <130 mg/dL, Optimal 130-159 mg/dL, Near optimal/above optimal 160-189 mg/dL, Borderline high 190-219 mg/dL, High >219 mg/dL, Very high Secondary prevention optimal non HDL Cholesterol levels are recommended to be <100 mg/dL Performed By: #### 2 4331-1 #### [facility] CLIA [id number] [address] [place] [address] [place] [facility] CLIA [id number] [address] [place] [address] [place] #### 3016-3 #### [facility] CLIA [id number] [address] [place] [address] [place] Cholesterol.total/Choles terol in HDL [Mass ratio] 2.02 {ratio} Normal <5.10 [facility] Comment on above: Order Comment: Speci men Type: BLOOD SPECIMEN Ordering Facility: [facility] Address: [address] [place] [address] Performed By: #### 2 4331-1 #### [facility] CLIA [id number] [address] [place] [address] [place] [facility] CLIA [id number] [address] [place] [address] [place] #### 3016-3 #### [facility] CLIA [id number] [address] [place] [address] [place] FASTING TIME 12 hrs Normal [facility] Comment on above: Order Comment: Speci men Type: BLOOD SPECIMEN Ordering Facility: [facility] Address: [address] [place] [address] Performed By: #### 2 4331-1 #### [facility] CLIA [id number] [address] [place], [place] [address] [place] [facility] CLIA [id number] [address] [place] [address] [place] #### 3016-3 #### [facility] CLIA [id number] [address] [place] [address] [place] Triglyceride [Mass/Vol] 63 mg/dL Normal <150 [facility] Comment on above: Order Comment: Speci men Type: BLOOD SPECIMEN Ordering Facility: [facility] Address: [address] [place] [address] Result Comment: <150 mg/dL, Normal 150-199 mg/dL, Borderline high 200-499 mg/dL, High >499 mg/dL, Very high Performed By: #### 2 4331-1 #### [facility] CLIA [id number] [address] [place] [address] [place] [id number] [place] [address] [place] D[place] #### 3016-3 #### [facility] CLIA [id number] [address] [place] [address] [place] TSH SerPl-aCncon 10-31-2023 TSH Qn 3.530 m[IU]/L Normal 0.270-4.200 [facility] Comment on above: Order Comment: Speci men Type: BLOOD SPECIMEN Ordering Facility: [facility] Address: [address] [place] [address] Performed By: #### 2 4331-1 #### [facility] CLIA [id number] [address] [place] [address] [place] [facility] [id number] [address] [place] [address] [place] #### 3016-3 #### [facility] CLIA [id number] [address] [place] [address] [place] Absolute lymphocyte counton 09-21-2021 Lymphocytes Auto (Unsp spec) [#/Vol] 2.80 10*3/uL 0.83-4.51 [facility] Work Phone: Basophil percentageon 2021 Basophils/100 WBC (Bld) 0.7 % 0-1 [facility] Work Phone: Bilirubin [Mass/Vol] 0.70 mg/dL 0.20-1.00 [facility] Work Phone: Comment on above: For patients on eltr ombopag therapy, use of Dimension Hitchcock TBIL is not recommended. Chloride [Moles/Vol] 105 mmol/L 98-107 [facility] Work Phone: Cholesterol [Mass/Vol] 114 mg/dL <200 [facility] Work Phone: Comment on above: <200 mg/dL Desirable 200-240 mg/dL Borderline >240 mg/dL High Risk Eosinophils/100 WBC (Bld) 2.3 % 0-5 [facility] Work Phone: Glucose [Mass/Vol] 95 mg/dL 74-106 [facility] Work Phone: Neutrophils (Bld) [#/Vol] 6.1 10*3/uL 2.0-7.7 [facility] Work Phone: Neutrophils/100 WBC (Bld) 61.5 % 47-70 [facility] Work Phone: Potassium [Moles/Vol] 3.9 mmol/L 3.5-5.1 [facility] Work Phone: Protein [Mass/Vol] 7.7 g/dL 6.4-8.2 [facility] Work Phone: Sodium [Moles/Vol] 137 mmol/L 136-145 [facility] Work Phone: Triglyceride [Mass/Vol] 55 mg/dL <199 [facility] Work Phone: Comment on above: The drugs N-Acetylcy steine and Metamizole may falsely depress this assay.Serum Triglycerides Reference Interval Normal <150 mg/dL Borderline high 150 - 199 mg/dL High 200 - 499 mg/dL Very High > or = 500 mg/dL WBC (Bld) [#/Vol] 9.9 10*3/uL 4.4-11.0 [facility] Work Phone: Blood erythrocytes count (nu mber/volume)on 09-21-2021 RBC (Bld) [#/Vol] 4.42 10*6/uL 4.2-5.4 [facility] Work Phone: [phone] Blood hemoglobin measurement (mass/volume)on 09-21-2021 Hemoglobin (Bld) [Mass/Vol] 13.9 g/dL 12.0-15.0 [facility] Work Phone: [phone] Blood lymphocytes/100 leukoc yteson 09-21-2021 Lymphocytes/100 WBC (Bld) 28.2 % 19-41 [facility] Work Phone: [phone] Blood monocytes/100 leukocyt eson 09-21-2021 Monocytes/100 WBC (Bld) 6.7 % 0-10 [facility] Work Phone: Blood platelet mean volumeon 09-21-2021 Platelet mean volume (Bld) [Entitic vol] 9.8 fL 6.2-12.0 [facility] Work Phone: Determination of erythrocyte mean corpuscular volume (MCV)on 09-21-2021 MCV (RBC) [Entitic vol] 98.2 fL 81-99 [facility] Work Phone: [phone] Hematocrit Auto (Bld) [Volum e fraction]on 09-21-2021 Hematocrit (Bld) [Volume fraction] 43.4 % 37-47 [facility] Work Phone: [phone] Laboratory - Chemistry and C hemistry - challengeon 09-21-2021 ALP [Catalytic activity/Vol] 71 U/L 45-117 [facility] Work Phone: ALT [Catalytic activity/Vol] 18 U/L 13-56 [facility] Work Phone: [phone] CO2 [Moles/Vol] 27.0 mmol/L 21.0-32.0 [facility] Work Phone: [phone] Globulin (S) [Mass/Vol] 4.3 g/dL 2.2-4.2 [facility] Work Phone: [phone] Urea nitrogen/Creatinine [Mass ratio] 26.7 mg/mg 10-20 [facility] Work Phone: [phone] Laboratory - Hematology and Cell countson 09-21-2021 Erythrocyte distribution width (RBC) [Entitic vol] 46.2 fL 35.1-43.9 [facility] Work Phone: [phone] Erythrocyte distribution width (RBC) [Ratio] 12.8 % 11.6-14.6 [facility] Work Phone: [phone] Immature granulocytes/100 WBC (Bld) 0.600 % 0.0-0.9 [facility] Work Phone: [phone] Comment on above: IG% - Immature Granu locytes (promyelocytes, myelocytes and metamyelocytes) > 1% indicates that a LEFT SHIFT is Present. MCH (RBC) [Entitic mass] 31.4 pg 27.0-32.0 [facility] Work Phone: [phone] Nucleated RBC/100 WBC (Bld) [Ratio] 0 % 0-5 [facility] Work Phone: [phone] MCHC Auto (RBC) [Mass/Vol]on 09-21-2021 MCHC (RBC) [Mass/Vol] 32.0 g/dL 32-36 [facility] Work Phone: [phone] Panel Informationon 09-21 Estimated GFR (MDRD) Amer 67 mL/min >60 [facility] Work Phone: [phone] Comment on above: GFR Calc Estimated GFR (MDRD) Non-Af Amer 55 mL/min >60 [facility] Work Phone: [phone] Comment on above: Non- GFR Calc Thyroid Stimulating Hormone (TSH) 2.45 uIU/mL 0.358-3.74 [facility] Work Phone: [phone] Platelets bldon 09-21-2021 Platelets (Bld) [#/Vol] 248 10*3/uL 150-450 [facility] Work Phone: Serum or plasma albumin sarbjit urement (mass/volume)on 09-21-2021 Albumin [Mass/Vol] 3.4 g/dL 3.2-5.0 [facility] Work Phone: Serum or plasma albumin/glob ulin mass ratioon 09-21-2021 Albumin/Globulin [Mass ratio] 0.8 {ratio} 0.9-2.4 [facility] Work Phone: Serum or plasma calcium sarbjit urement (mass/volume)on 09-21-2021 Calcium [Mass/Vol] 10.1 mg/dL 8.5-10.1 [facility] Work Phone: Serum or plasma cholesterol in HDL measurement (mass/volume)on 09-21-2021 Cholesterol in HDL [Mass/Vol] 55 mg/dL >40 [facility] Work Phone: Comment on above: The drugs N-Acetylcy steine and Metamizole may falsely depress this assay. Reference Range HDL <40 mg/dL Low HDL Cholesterol HDL >or= 60 mg/dL High HDL Cholesterol Serum or plasma cholesterol in VLDL measurement (mass/volume)on 09-21-2021 Cholesterol in VLDL [Mass/Vol] 11 mg/dL 5-40 [facility] Work Phone: Serum or plasma creatinine m easurement (mass/volume)on 09-21-2021 Creatinine [Mass/Vol] 1.01 mg/dL 0.55-1.02 [facility] Work Phone: Comment on above: The validity of the calculated GFR & GFRAA in patients over 70 years has not been determined. Clinical correlation is essential. Serum or plasma low density lipoprotein (LDL) cholesterol measurement (mass/volume)on 09-21-2021 Cholesterol in LDL [Mass/Vol] 48 mg/dL 0-130 [facility] Work Phone: Serum or plasma urea nitroge n measurement (mass/volume)on 09-21-2021 Urea nitrogen [Mass/Vol] 27 mg/dL 7-18 [facility] Work Phone: Thin prep Papanicolaou smear with manual screeningon 09-21-2021 Thin prep Papanicolaou smear with manual screening 18 U/L 15-37 [facility] Work Phone: Thin prep Papanicolaou smear with manual screening 5 5-15 [facility] Work Phone: TSHon 03-06-2018 Thyrotropin Qn 1.600 UIU/ML Normal 0.358-3.740 [facility] Comment on above: Result Comment: 3rd generation ultra sensitive TSH Performed By: #### L [id number] ####[facility] [id number] [place], [place] [address]Ep# [phone] Vital Signs Date Time Vital Sign Value Performing Clinician Facility 12-05-2024 08:01-0400 Body mass index (BMI) [Ratio] 30.2 kg/m2 Dr. Kodak Harding MD Work Phone: [facility] 12-05-2024 08:01-0400 Body temperature 96 [degF] Dr. Kodak Harding MD Work Phone: [facility] 12-05-2024 08:01-0400 Body weight 74.[address] Kodak Harding MD Work Phone: [facility] 12-05-2024 08:01-0400 Diastolic blood pressure 80 mm[Hg] Dr. Kodak Harding MD Work Phone: [facility] 12-05-2024 08:01-0400 Heart rate 16 /min Dr. Kodak Harding MD Work Phone: [facility] 12-05-2024 08:01-0400 Respiratory rate 16 /min Dr. Kodak Harding MD Work Phone: [facility] 12-05-2024 08:01-0400 SaO2% (BldA) [Mass fraction] 90 % Dr. Kodak Harding MD Work Phone: [facility] 12-05-2024 08:01-0400 Systolic blood pressure 115 mm[Hg] Dr. Kodak Harding MD Work Phone: [facility] 11-05-2024 07:15-0400 Body height 157.[address] Kodak Harding MD Work Phone: [facility] 11-05-2024 07:15-0400 Body mass index (BMI) [Ratio] 30.7 kg/m2 Dr. Kodak Harding MD Work Phone: [facility] 11-05-2024 07:15-0400 Body temperature 97.7 [degF] Dr. Kodak Harding MD Work Phone: [facility] 11-05-2024 07:15-0400 Body weight 76.[address] Kodak Harding MD Work Phone: [facility] 11-05-2024 07:15-0400 Diastolic blood pressure 82 mm[Hg] Dr. Kodak Harding MD Work Phone: [facility] 11-05-2024 07:15-0400 Heart rate 73 /min Dr. Kodak Harding MD Work Phone: [facility] 11-05-2024 07:15-0400 Respiratory rate 18 /min Dr. Kodak Harding MD Work Phone: [facility] 11-05-2024 07:15-0400 SaO2% (BldA) [Mass fraction] 97 % Dr. Kodak Harding MD Work Phone: [facility] 11-05-2024 07:15-0400 Systolic blood pressure 134 mm[Hg] Dr. Kodak Harding MD Work Phone: [facility] 10-22-2024 19:40-0400 Body temperature 98.4 [degF] Dr. Kodak Harding MD Work Phone: [facility] 10-22-2024 19:40-0400 Diastolic blood pressure 98 mm[Hg] Dr. Kodak Harding MD Work Phone: [facility] 10-22-2024 19:40-0400 Heart rate 81 /min Dr. Kodak Harding MD Work Phone: [facility] 10-22-2024 19:40-0400 Respiratory rate 16 /min Dr. Kodak Harding MD Work Phone: [facility] 10-22-2024 19:40-0400 SaO2% (BldA) [Mass fraction] 93 % Dr. Kodak Harding MD Work Phone: [facility] 10-22-2024 19:40-0400 Systolic blood pressure 149 mm[Hg] Dr. Kodak Harding MD Work Phone: [facility] 10-22-2024 17:47-0400 Body mass index (BMI) [Ratio] 32.5 kg/m2 Dr. Kodak Harding MD Work Phone: [facility] 10-22-2024 17:47-0400 Body weight 80.[address] Kodak Harding MD Work Phone: [facility] 10-22-2024 14:54-0400 Body height 157.[address] Kodak Harding MD Work Phone: [facility] 09-17-2024 13:05-0400 Body height 157.5 cm Kodak Harding MD Work Phone: [facility] 09-17-2024 13:05-0400 Body mass index (BMI) [Ratio] 27.62 kg/m2 Kodak Harding MD Work Phone: [facility] 09-17-2024 13:05-0400 Body temperature 96.91 [degF] Kodak Harding MD Work Phone: [facility] 09-17-2024 13:05-0400 Body weight 68.49 kg Kodak Harding MD Work Phone: [facility] 09-17-2024 13:05-0400 Diastolic blood pressure 76 mm[Hg] Kodak Harding MD Work Phone: [facility] 09-17-2024 13:05-0400 Heart rate 90 /min Kodak Harding MD Work Phone: [facility] 09-17-2024 13:05-0400 Respiratory rate 18 /min Kodak Harding MD Work Phone: [facility] 09-17-2024 13:05-0400 SaO2% (BldA) [Mass fraction] 94 % Kodak Harding MD Work Phone: [facility] 09-17-2024 13:05-0400 Systolic blood pressure 118 mm[Hg] Kodak Harding MD Work Phone: [facility] 07-30-2024 12:58-0400 Body height 157.5 cm Kodak Harding MD Work Phone: [facility] 07-30-2024 12:58-0400 Body mass index (BMI) [Ratio] 28.9 kg/m2 Kodak Harding MD Work Phone: [facility] 07-30-2024 12:58-0400 Body temperature 97.3 [degF] Kodak Harding MD Work Phone: [facility] 07-30-2024 12:58-0400 Body weight 71.67 kg Kodak Harding MD Work Phone: [facility] 07-30-2024 12:58-0400 Diastolic blood pressure 78 mm[Hg] Kodak Harding MD Work Phone: [facility] 07-30-2024 12:58-0400 Heart rate 68 /min Kodak Harding MD Work Phone: [facility] 07-30-2024 12:58-0400 Respiratory rate 20 /min Kodak Harding MD Work Phone: [facility] 07-30-2024 12:58-0400 SaO2% (BldA) [Mass fraction] 94 % Kodak Harding MD Work Phone: [facility] 07-30-2024 12:58-0400 Systolic blood pressure 126 mm[Hg] Kodak Harding MD Work Phone: [facility] 06-27-2024 13:01-0400 Body height 157.5 cm Kodak Harding MD Work Phone: [facility] 06-27-2024 13:01-0400 Body mass index (BMI) [Ratio] 27.98 kg/m2 Kodak Harding MD Work Phone: [facility] 06-27-2024 13:01-0400 Body temperature 96.91 [degF] Kodak Harding MD Work Phone: [facility] 06-27-2024 13:01-0400 Body weight 69.4 kg Kodak Harding MD Work Phone: [facility] 06-27-2024 13:01-0400 Diastolic blood pressure 78 mm[Hg] Kodak Harding MD Work Phone: [facility] 06-27-2024 13:01-0400 Heart rate 105 /min Kodak Harding MD Work Phone: [facility] 06-27-2024 13:01-0400 Respiratory rate 18 /min Kodak Harding MD Work Phone: [facility] 06-27-2024 13:01-0400 SaO2% (BldA) [Mass fraction] 95 % Kodak Harding MD Work Phone: [facility] 06-27-2024 13:01-0400 Systolic blood pressure 122 mm[Hg] Kodak Harding MD Work Phone: [facility] 06-15-2024 13:57-0500 Body height 157.[address] Kodak Harding MD Work Phone: [facility] 06-15-2024 13:57-0500 Body weight 69.[address] Kodak Harding MD Work Phone: [facility] 06-15-2024 09:12-0500 Diastolic blood pressure 71 mm[Hg] Dr. Kodak Harding MD Work Phone: [facility] 06-15-2024 09:12-0500 Heart rate 99 /min Dr. Kodak Harding MD Work Phone: [facility] 06-15-2024 09:12-0500 Systolic blood pressure 135 mm[Hg] Dr. Kodak Harding MD Work Phone: [facility] 06-15-2024 09:00-0500 Body temperature 98.1 [degF] Dr. Kodak Harding MD Work Phone: [facility] 06-15-2024 09:00-0500 Respiratory rate 16 /min Dr. Kodak Harding MD Work Phone: [facility] 06-15-2024 09:00-0500 SaO2% (BldA) [Mass fraction] 95 % Dr. Kodak Harding MD Work Phone: [facility] 06-14-2024 05:04-0500 Body mass index (BMI) [Ratio] 28 kg/m2 Dr. Kodak Harding MD Work Phone: [facility] 06-13-2024 07:10-0500 Inhaled oxygen flow rate 2 L/min Dr. Kodak Harding MD Work Phone: [facility] 03-19-2024 13:49-0500 Body height 157.5 cm Kodak Harding MD Work Phone: [facility] 03-19-2024 13:49-0500 Body mass index (BMI) [Ratio] 28.72 kg/m2 Kodak Harding MD Work Phone: [facility] 03-19-2024 13:49-0500 Body temperature 97.7 [degF] Kodak Harding MD Work Phone: [facility] 03-19-2024 13:49-0500 Body weight 71.22 kg Kodak Harding MD Work Phone: [facility] 03-19-2024 13:49-0500 Diastolic blood pressure 82 mm[Hg] Kodak Harding MD Work Phone: [facility] 03-19-2024 13:49-0500 Heart rate 98 /min Kodak Harding MD Work Phone: [facility] 03-19-2024 13:49-0500 Respiratory rate 20 /min Kodak Harding MD Work Phone: [facility] 03-19-2024 13:49-0500 SaO2% (BldA) [Mass fraction] 98 % Kodak Harding MD Work Phone: [facility] 03-19-2024 13:49-0500 Systolic blood pressure 126 mm[Hg] Kodak Harding MD Work Phone: [facility] 09-26-2023 13:120400 Body height 157.5 cm Kodak Harding MD Work Phone: [facility] 09-26-2023 13:12-0400 Body mass index (BMI) [Ratio] 29.45 kg/m2 Kodak Harding MD Work Phone: [facility] 09-26-2023 13:12-0400 Body temperature 97.59 [degF] Kodak Harding MD Work Phone: [facility] 09-26-2023 13:12-0400 Body weight 73.03 kg Kodak Harding MD Work Phone: [facility] 09-26-2023 13:12-0400 Diastolic blood pressure 82 mm[Hg] Kodak Harding MD Work Phone: [facility] 09-26-2023 13:12-0400 Heart rate 64 /min Kodak Harding MD Work Phone: [facility] 09-26-2023 13:12-0400 Respiratory rate 18 /min Kodak Harding MD Work Phone: [facility] 09-26-2023 13:12-0400 SaO2% (BldA) [Mass fraction] 98 % Kodak Harding MD Work Phone: [facility] 09-26-2023 13:12-0400 Systolic blood pressure 128 mm[Hg] Kodak Harding MD Work Phone: [facility] 03-23-2023 13:03-0500 Body height 157.5 cm Kodak Harding MD Work Phone: [facility] 03-23-2023 13:03-0500 Body temperature 97.59 [degF] Kodak Harding MD Work Phone: [facility] 03-23-2023 13:03-0500 Body weight 74.84 kg Kodak Harding MD Work Phone: [facility] 03-23-2023 13:03-0500 Diastolic blood pressure 82 mm[Hg] Kodak Harding MD Work Phone: [facility] 03-23-2023 13:03-0500 Heart rate 72 /min Kodak Harding MD Work Phone: [facility] 03-23-2023 13:03-0500 Respiratory rate 18 /min Kodak Harding MD Work Phone: [facility] 03-23-2023 13:03-0500 SaO2% (BldA) [Mass fraction] 97 % Kodak Harding MD Work Phone: [facility] 03-23-2023 13:03-0500 Systolic blood pressure 136 mm[Hg] Kodak Harding MD Work Phone: [facility] 03-22-2022 13:25-0500 Body height 157.5 cm Kodak Harding MD Work Phone: [facility] 03-22-2022 13:25-0500 Body temperature 96.91 [degF] Kodak Harding MD Work Phone: [facility] 03-22-2022 13:25-0500 Body weight 79.55 kg Kodak Harding MD Work Phone: [facility] 03-22-2022 13:25-0500 Diastolic blood pressure 86 mm[Hg] Kodak Harding MD Work Phone: [facility] 03-22-2022 13:25-0500 Heart rate 64 /min Kodak Harding MD Work Phone: [facility] 03-22-2022 13:25-0500 Respiratory rate 18 /min Kodak Harding MD Work Phone: [facility] 03-22-2022 13:25-0500 SaO2% (BldA) [Mass fraction] 97 % Kodak Harding MD Work Phone: [facility] 03-22-2022 13:25-0500 Systolic blood pressure 138 mm[Hg] Kodak Harding MD Work Phone: [facility] Encounters Encounter Date Encounter Type Care Provider Facility Start: 12-18-2024 ambulatory [facility] Facility: [facility] Start: 12-05-2024 End: 12-05-2024 Patient encounter procedure Edyta Drake PROFESSOR OF HISTORY-C -[facility] Work Phone: Start: 12-05-2024 End: 12-05-[address] Kodak Harding MD Work Phone: -[facility] Start: 11-27-2024 End: 11-27-2024 Refill Kodak Harding MD Work Phone: [facility] Comment on above: Refill Request Start: 11-23-2024 Non-patient / Non-visit Dr. Jamal CARRANZA -[facility] Start: 11-23-2024 End: 11-23-[address] Kodak Harding MD Work Phone: -Cardiovascular Services Start: 11-23-2024 End: 11-23-[address] Tamir Cardoso DO -Cardiovascular Services Work Phone: Start: 11-23-2024 End: 11-23-2024 ambulatory [facility] Facility:[facility] Start: 11-21-2024 End: 11-21-[address] Kodak Harding MD Work Phone: -Cat Scan [facility] Start: 11-21-2024 End: 11-21-[address] Tamir Cardoso DO -Cat Scan [facility] Work Phone: Start: 11-21-2024 End: 11-21-2024 ambulatory Donovan Nice Facility:[facility] Start: 11-13-2024 ambulatory [facility] Facility: [facility] Start: 11-13-[address] Donovan mae MD -[facility] Start: 11-09-2024 End: 11-09-[address] Kodak Harding MD Work Phone: -Pulmonary Services/Neurology Start: 11-09-2024 End: 11-09-[address] Tamir Cardoso DO -Pulmonary Services/Neurology Work Phone: Start: 11-09-2024 End: 11-09-2024 ambulatory [facility] Facility:[facility] Start: 11-07-2024 End: 11-08-2024 Telephone encounter Kodak Harding MD Work Phone: [facility] Comment on above: Orders Start: 11-05-2024 End: 11-06-2024 Telephone encounter Kodak Harding MD Work Phone: [facility] Comment on above: Patient Update Start: 11-05-2024 End: 11-05-[address] Kodak Harding MD Work Phone: -Laboratory Start: 11-05-2024 End: 11-05-[address] Tamir Cardoso DO -Laboratory Work Phone: Start: 11-05-2024 End: 11-05-[address] Tamir Cardoso DO -[facility] Work Phone: Start: 11-05-2024 End: 11-05-[address] Kodak Harding MD Work Phone: -[facility] Start: 11-05-2024 End: 11-05-2024 ambulatory Tamir Cardoso Facility:[facility] Start: 10-29-2024 End: 10-30-2024 Refill Kodak Harding MD Work Phone: [facility] Comment on above: Refill Request Start: 10-23-2024 End: 10-23-2024 ambulatory Arcelia Schofield RN [facility] Start: 10-23-2024 End: 10-23-2024 Follow-[facility] Comment on above: Primary Care [facility] Ed Follow Up Start: 10-23-2024 End: 10-23-2024 Refill Kodak Harding MD Work Phone: [facility] Comment on above: Refill Request Start: 10-22-2024 End: 10-22-2024 Emergency department patient visit Dr. Kodak Harding MD Work Phone: -Emergency Department Work Phone: Start: 10-22-2024 End: 10-23-2024 Patient encounter procedure [facility] Start: 10-01-2024 End: 10-01-2024 ambulatory KODAK HARDING Facility:[facility] Start: 09-17-2024 End: 09-17-2024 Patient encounter procedure Kodak Harding MD Work Phone: [facility] Comment on above: Encounter for seda daniel regarding advance directives (Primary Dx); Screening for depression; Encounter for screening examination for other mental health and behavioral disorders; Generalized weakness; Acquired hypothyroidism; Mixed hyperlipidemia; Hypertension, essential; 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; Persistent atrial fibrillation (HCC); Screening for deficiency anemia; Primary osteoarthritis involving multiple joints; Medicare annual wellness visit, subsequent Start: 09-17-2024 End: 09-17-2024 ambulatory KODAK HARDING Facility:[id number] Start: 07-30-2024 End: 07-30-2024 Office outpatient visit 15 minutes Kodak Harding MD Work Phone: [facility] Comment on above: Paroxysmal atrial fi brillation (HCC) (Primary Dx); Hypertension, essential; Acquired hypothyroidism; Mixed hyperlipidemia; longterm (current) use of anticoagulants Start: 07-30-2024 End: 07-30-2024 ambulatory KODAK HARDING Facility:[id number] Start: 07-05-2024 End: 07-05-2024 Patient Outreach Arcelia Schofield RN [facility] Comment on above: Initial phone contac t for Transitional Care Management Start: 06-27-2024 End: 06-27-2024 Transitional care manage srvc 7 day discharge Kodak Harding MD Work Phone: [facility] [place] Comment on above: Persistent atrial fi brillation (HCC) (Primary Dx); Hypertension, essential; Sepsis, due to unspecified organism, unspecified whether acute organ dysfunction present (HCC); Acute respiratory failure with hypoxia (HCC); Acute lower UTI; Acute heart failure with mildly reduced ejection fraction (HFmrEF, 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); longterm current use of anticoagulant therapy Start: 06-27-2024 End: 06-27-2024 ambulatory KODAK HARDING Facility:[id number] Start: 06-19-2024 End: 06-19-2024 Patient Outreach Arcelia Schofield RN [facility] Comment on above: Started Initial phon e contact for Transitional Care Management Start: 06-18-2024 End: 06-18-2024 Patient Outreach Arcelia Schofield RN [facility] Comment on above: Started Initial phon e contact for Transitional Care Management Start: 06-15-2024 End: 06-18-2024 Patient encounter procedure [facility] Provider [facility] Department Start: 06-15-2024 Non-patient / Non-visit Dr. Jovany Ramsey MD -[facility] Work Phone: Start: 06-14-2024 Non-patient / Non-visit Dr. Jovany Ramsey MD -[facility] Work Phone: Start: 06-13-2024 Non-patient / Non-visit Dr. Jovany Ramsey MD -[facility] Work Phone: Start: 06-12-2024 ambulatory Demetrius Terrell Facility:[facility] Start: 06-12-2024 Non-patient / Non-visit Dr. Demetrius anguiano MD -[facility] Start: 06-11-2024 End: 06-15-2024 Evaluation and management of inpatient Dr. Aster Ramsey MD -Progressive Care Unit Work Phone: Start: 06-11-2024 Non-patient / Non-visit Dr. Mio alba MD -[facility] Work Phone: Start: 06-11-2024 ambulatory Aster Ramsey Facility :[facility] Start: 06-11-2024 End: 06-12-2024 Patient encounter procedure [facility] Provider [facility] Start: 03-19-2024 End: 03-19-2024 Office outpatient visit 15 minutes Kodak Harding MD Work Phone: [facility] Comment on above: Hypertension, essent ial (Primary Dx); Paroxysmal atrial fibrillation (HCC) Start: 03-19-2024 End: 03-19-2024 ambulatory KODAK HARDING Facility:[id number] Start: 03-03-2024 End: 03-05-2024 Refill Kodak Harding MD Work Phone: [facility] Comment on above: Refill Request Start: 10-31-2023 End: 10-31-2023 ambulatory KODAK HARDING Facility:[facility] Start: 10-31-2023 Encounter for genera l adult medical examination without abnormal findings KODAK HARDING [facility] Start: 09-26-2023 End: 09-26-2023 Patient encounter procedure Kodak Harding MD Work Phone: [facility] Comment on above: Wellness examination (Primary Dx); Advanced directives, counseling/discussion; Hypertension, essential; Paroxysmal atrial fibrillation (HCC); Acquired hypothyroidism; Osteoarthritis of knee, unspecified laterality, unspecified osteoarthritis type; Screening for deficiency anemia; Pure hypercholesterolemia; Medicare annual wellness visit, subsequent Start: 09-26-2023 End: 09-26-2023 Patient encounter status Kodak Harding MD Work Phone: [facility] Start: 03-23-2023 End: 03-23-2023 Office outpatient visit 15 minutes Kodak Harding MD Work Phone: [facility] Comment on above: Paroxysmal atrial fi brillation (HCC) (Primary Dx); Hypertension, essential; Acquired hypothyroidism; Osteoarthritis of knee, unspecified laterality, unspecified osteoarthritis type Start: 10-05-2022 Telephone encounter Kodak Harding MD Work Phone: [facility] Comment on above: Population Health Na vigation Outreach Start: 03-22-2022 End: 03-22-2022 Office outpatient visit 15 minutes Kodak Harding MD Work Phone: [facility] Comment on above: Paroxysmal atrial fi brillation (HCC) (Primary Dx); Primary hypertension; Acquired hypothyroidism; Osteoarthritis of knee, unspecified laterality, unspecified osteoarthritis type Start: 09-21-2021 End: 09-21-2021 Patient encounter procedure [facility] Start: 03-06-2018 Patient encounter procedure Kodak Harding Facility:[facility] Procedures Date Procedure Procedure Detail Performing Clinician Start: 11-21-2024 CT of chest without contrast Dr. Kodak Harding MD Work Phone: Start: 10-22-2024 Urnls dip stick/tabl et reagent [...] Author Start: 10-02-2027 Diabetes Screening Diabetes Screening [facility] Start: 10-30-2026 Diabetes Screening Diabetes Screening [facility] Start: 10-04-2025 DIABETES SCREEN DIABETES SCREEN [facility] Start: 10-04-2025 Diabetes Screening Diabetes Screening [facility] Start: 09-17-2025 Anxiety Screening Anxiety Screening [facility] Start: 09-17-2025 Depression Screening Depression Screening [facility] Start: 03-20-2025 End: 03-20-2025 Patient encounter procedure 03/20/2025 1:10 PM EST Office Visit [facility] [address] [place] [phone] Kodak Harding MD [address] [place], [place] [phone] mo f/u [facility] Comment on above: 6 mo f/u Start: 12-10-2024 Influenza vaccination [facility] Start: 11-06-2024 End: 02-05-2025 Natriuretic peptide.B prohormone N-Terminal [Mass/volume] in Serum or Plasma NT PRO BNP Lab Routine QUACH (dyspnea on exertion) Expected: 11/06/2024, Expires: 02/05/2025 [facility] Work Phone: Comment on above: Expected: 11/06/2024, Expires: Start: 10-22-2024 [facility] Start: 09-25-2024 Anxiety Screening Anxiety Screening [facility] Start: 09-25-2024 Depression Screening Depression Screening [facility] Start: 09-17-2024 End: 12-17-2024 CBC W Auto Differential panel - Blood COMPLETE BLOOD COUNT AND DIFFERENTIAL Lab Routine Screening for deficiency anemia Expected: 09/17/2024, Expires: 12/17/2024 [facility] Work Phone: Comment on above: Expected: 09/17/2024, Expires: Start: 09-17-2024 End: 12-17-2024 Comprehensive metabolic 2000 panel - Serum or Plasma COMPREHENSIVE METABOLIC PANEL Lab Routine Mixed hyperlipidemia Hypertension, essential Expected: 09/17/2024, Expires: 12/17/2024 [facility] Comment on above: Expected: 09/17/2024, Expires: Start: 09-17-2024 End: 12-17-2024 Thyrotropin [Units/volume] in Serum or Plasma THYROID STIMULATING HORMONE Lab Routine Acquired hypothyroidism Expected: 09/17/2024, Expires: 12/17/2024 [facility] Comment on above: Expected: 09/17/2024, Expires: Start: 09-17-2024 End: 09-17-2024 Patient encounter procedure 09/17/2024 1:00 PM EDT Office Visit [facility] [address] [place] [phone] Kodak Harding MD [address] [place], [place] [phone] Annual Wellness Exam [facility] Comment on above: Annual Wellness Exam Start: 07-30-2024 End: 07-30-2024 Patient encounter procedure 07/30/2024 1:00 PM EDT Office Visit [facility] [address] [place] [phone] oKdak Harding MD [address] [place], [place] [address] [phone] Month Follow Up [facility] Comment on above: 1 Month Follow Up Start: 06-27-2024 End: 06-27-2024 Patient encounter procedure 06/27/2024 1:00 PM EDT Office Visit [facility] [address] [place] [phone] Kodak Harding MD [address] [place], [place] [phone] Follow Up- Urinary Tract Infection [facility] Comment on above: Hospital Follow Up- Urinary Tract Infect ion Start: 06-15-2024 Patient discharge [facility] Start: 06-11-2024 Assessment of risk of venous thromboembolism [facility] Start: 06-11-2024 Bedrest [facility] Start: 06-11-2024 Continuous pulse oximetry [facility] Start: 06-11-2024 Insertion of catheter into peripheral vein [facility] Start: 06-11-2024 Measuring intake and output [facility] Start: 06-11-2024 Neurological assessment [facility] Start: 06-11-2024 Oxygen therapy [facility] Start: 06-11-2024 Providing care according to standard [facility] Start: 06-11-2024 Referral to service [facility] Start: 06-11-2024 Vital signs measurements [facility] Start: 06-11-2024 Following clinical pathway protocol [facility] Start: 06-11-2024 Admission procedure [facility] Start: 06-11-2024 End: 06-11-2024 [facility] Start: 06-11-2024 [facility] Start: 06-11-2024 Bacteria identified in Blood by Culture Blood Culture [facility] Start: 04-11-2024 Advance Directive Discussion Advance Directive Discussion [facility] Start: 03-19-2024 End: 03-19-2024 Patient encounter procedure 03/19/2024 1:50 PM EST Office Visit [facility] [address] [place] [phone] Kodak Harding MD [address] [place] [address] 6 Month Follow Up [facility] Comment on above: 6 Month Follow Up Start: 12-11-2023 Covid-19 Vaccine () Covid-19 Vaccine () [facility] Start: 12-11-2023 Influenza vaccination [facility] Start: 09-26-2023 End: 12-26-2023 CBC W Auto Differential panel - Blood COMPLETE BLOOD COUNT AND DIFFERENTIAL Lab Routine Screening for deficiency anemia Expected: 09/26/2023, Expires: 12/26/2023 [facility] Work Phone: Comment on above: Expected: 09/26/2023, Expires: Start: 09-26-2023 End: 12-26-2023 Comprehensive metabolic 2000 panel - Serum or Plasma COMPREHENSIVE METABOLIC PANEL Lab Routine Wellness examination Hypertension, essential Expected: 09/26/2023, Expires: 12/26/2023 [facility] Comment on above: Expected: 09/26/2023, Expires: Start: 09-26-2023 End: 12-26-2023 Lipid 1996 panel - Serum or Plasma LIPID PANEL BASIC Lab Routine Pure hypercholesterolemia Expected: 09/26/2023, Expires: 12/26/2023 [facility] Comment on above: Expected: 09/26/2023, Expires: Start: 09-26-2023 End: 12-26-2023 Thyrotropin [Units/volume] in Serum or Plasma THYROID STIMULATING HORMONE Lab Routine Acquired hypothyroidism Expected: 09/26/2023, Expires: 12/26/2023 [facility] Comment on above: Expected: 09/26/2023, Expires: 4 Start: 03-23-2023 End: 06-22-2023 Thyrotropin [Units/volume] in Serum or Plasma TSH BLD Lab Routine Acquired hypothyroidism Expected: 03/23/2023, Expires: 06/22/2023 [facility] Work Phone: Comment on above: Expected: 03/23/2023, Expires: 4 Start: 12-10-2022 Covid-19 Vaccine () Covid-19 Vaccine () [facility] Start: 12-10-2022 Influenza vaccination [facility] Start: 03-22-2022 End: 05-22-2022 Basic metabolic 2000 panel - Serum or Plasma BASIC METABOLIC PNL Lab Routine Primary hypertension Expected: 03/22/2022, Expires: 05/22/2022 [facility] Work Phone: Comment on above: Expected: 03/22/2022, Expires: 3 Start: 03-22-2022 End: 05-22-2022 Thyrotropin [Units/volume] in Serum or Plasma TSH BLD Lab Routine Acquired hypothyroidism Expected: 03/22/2022, Expires: 05/22/2022 [facility] Work Phone: Comment on above: Expected: 03/22/2022, Expires: 3 Start: 12-10-2021 Influenza vaccination INFLUENZA (#1) [facility] Start: 04-11-2021 ADVANCE DIRECTIVE DISCUSSION ADVANCE DIRECTIVE DISCUSSION [facility] Start: 04-11-2021 DEPRESSION ASSESSMENT DEPRESSION ASSESSMENT [facility] Start: 01-30-2021 COVID-19 VACCINE (3 - Booster for Moderna series) COVID-19 VACCINE (3 - Booster for Moderna series) [facility] Start: 07-20-2010 RSV Vaccine (1 - 1-dose 75+ series) RSV Vaccine (1 - 1-dose 75+ series) [facility] Start: 07-20-2000 BONE DENSITY BONE DENSITY [facility] Start: 07-20-2000 Pneumococcal Vaccine: 65+ (1 - PCV) Pneumococcal Vaccine: 65+ (1 - PCV) [facility] Start: 07-20-2000 Pneumococcal Vaccine: 65+ (1 of 1 - PCV) Pneumococcal Vaccine: 65+ (1 of 1 - PCV) [facility] Start: 07-20-2000 PNEUMOCOCCAL: 65+ (1 - PCV) PNEUMOCOCCAL: 65+ (1 - PCV) [facility] Start: 07-20-2000 Screening for osteoporosis Bone Density Screening [facility] Start: 1995 RSV Vaccine (1 - 1-dose 60+ series) RSV Vaccine (1 - 1-dose 60+ series) [facility] Start: 07-20-1985 Pneumococcal Vaccine: 50+ (1 of 1 - PCV) Pneumococcal Vaccine: 50+ (1 of 1 - PCV) [facility] [facility] Start: 07-20-1985 SHINGRIX VACCINE (1 of 2) SHINGRIX VACCINE (1 of 2) [facility] Start: 07-20-1980 DIABETES SCREEN DIABETES SCREEN [facility] Start: 07-20-1954 Urine microalbumin profile [facility] Start: 01-20-1936 COVID-19 VACCINE (#1) COVID-19 VACCINE (#1) [facility] Basic metabolic 2008 panel with ionized calcium - Serum or Plasma [facility] Continuous pulse oximetry [facility] CT Chest WO contrast [facility] Measurement of respiratory function [facility] Measurement of respiratory function [facility] Natriuretic peptide. B prohormone N-Terminal [Mass/volume] in Serum or Plasma [facility] Patient Education Pulmonary Fibr osis ED Cellulitis ED Peripheral Edema, Bilateral [facility] Work Phone: Patient referral [facility] Work Phone: [facility] Immunizations Immunization Date Immunization Notes Care Provider Fa gerda 12-05-2020 COVID-19 original vaccine, full dose, monovalent (MODERNA) Kodak Harding MD Work Phone: [facility] 11-07-2020 COVID-19 original vaccine, full dose, monovalent (MODERNA) Kodak Harding MD Work Phone: [facility] Payers Date Payer Category Payer Self-pay [id number] 2017 Medicare HUMANA MEDICARE HUMANA MEDICARE PPO [id number] 2017-Present [phone] [address] [address] [place] [address] PPO [id number] 2017 Medicare (Managed Care) 1.2. [id number] 2013 Private Health Insurance [id number] Unknown [id number] [id number]. 2.273 Unknown [id number] 2.16.840.1.876504.3.579. 2.462 Unknown [id number] 2.16840.1.086629.3.579. 2.462 Unknown [id number] 2.16.840.1.084796.3.579. 2.462 Unknown [id number] 2.16.840.1.601760.3.579. 2.462 Unknown [id number] 2.16.840.1.080060.3.579. 2.462 Unknown [id number] 2.16.840.1.852764.3.579. 2.462 Unknown [id number] 2.16.840.1.423465.3.579. 2.462 Unknown [id number] 2.16.840.1.670603.3.579. 2.462 Unknown [id number] 2.16.840.1.355934.3.579. 2.462 Unknown [id number] 2.16.840.1.917312.3.579. 2.462 Unknown [id number] 2.16.840.1.594156.3.579. 2.462 Unknown [id number] 2.16.840.1.262664.3.579. 2.462 Unknown [id number] 2.16.840.1.461120.3.579. 2.462 Unknown [id number] 2.16.840.1.360337.3.579. 2.462 Unknown [id number] 2.16.840.1.493516.3.579. 2.462 Unknown [id number] 2.16.840.1.869677.3.579. 2.462 Unknown [id number] 2.16.840.1.993909.3.579. 2.462 Social History Date Type Detail Facility Tobacco smoking stat us SDIS Unknown if ever smoked [facility] Work Phone: Start: 1935 Sex Assigned At Female W [facility] Start: 03-22-2022 End: 11-05-2024 Tobacco smoking status SDIS Never smoked tobacco [facility] Start: 03-22-2022 Tobacco use and exposure Smoke less tobacco non-user [facility] Start: 03-22-2022 End: 09-17-2024 Alcohol intake Lifetime non-drinker (finding) [facility] Start: 1935 Sex Assigned At Not on file [facility] Start: 09-20-2022 History SDOH Alcohol Frequency 1 [facility] Start: 09-20-2022 History SDOH Alcohol Std Drinks 0 [facility] Start: 09-20-2022 History SDOH Social Connections Phone 5 [facility] Start: 09-20-2022 History SDOH Social Connections Membership 2 [facility] Start: 09-20-2022 History SDOH Social Connections Living 4 [facility] Start: 09-20-2022 History SDOH Physica l Activity DPW 3 [facility] Start: 09-20-2022 End: 09-17-2024 History of Social function [facility] Start: 09-20-2022 End: 09-17-2024 Social connection and isolation panel [facility] Do you belong to any clubs or organizations such as rastafarian groups, [employer]raz[employer], fraCerelink or athletic groups, or school groups? No [facility] Are you now , , , , never or living with a partner? [facility] How often to you hav e a drink containing alcohol? Never [facility] Start: 03-12-[address] inks containing alcohol do you have on a typical day? Patient does not drink [facility] Do you feel stress - tense, restless, nervous, or anxious, or unable to sleep at night because your mind is troubled all the time - these days [OSQ] Only a little [facility] (I/We) worried padilla er (my/our) food would run out before (I/we) got money to buy more. Never true [facility] Start: 06-15-2024 Sex Female (finding) [facility] Goals Date Patient Goal Desired Activity /State Functional Status Date Assessment Result Facility 09-17-2024 Total score [AUDIT-C] 0 09/18/19 25 1:04 PM EDT Kathy Garrett LPN [facility] 06-15-2024 Functional status Activity Abili ty With Assist of 1 [facility] Work Phone: 06-15-[address] [facility] Work Phone: 06-13-2024 Functional status Tolerates Activity Well [facility] Work Phone: [facility] Mental Status Date Assessment Result Facility 10-22-2024 Cognitive function Level Of Cons ciousness Awake;Alert;Appropriate;Follow s Commands [facility] Work Phone: 06-15-2024 Cognitive function Voice/Name [facility] Work Phone: Clinical Notes 03-22-2022 to 11-27-2024 Telephone Encounter - Lupis Smith LPN - 11/27/2024 1:41 PM EDTTelephone Encounter - Lupis Smith LPN - 11/27/2024 1:41 PM EDT Note Date & Type Note Facility 11-27-2024 Telephone encounter Note [facility] message requesting the following refill. Requested Prescriptions Pending Prescriptions Disp Refills verapamil SR (CALAN SR) 180 mg CR tablet [Pharmacy Med Name: VERAPAMIL HYDROCHLORIDE ER 180 MG Oral Tablet Extended Release] 180 tablet 3 Sig: TAKE 2 TABLETS AT BEDTIME Patient last appointment: 09/17/2024 Next appointment 03/20/2025 Patient Phone numbers: [phone] (home) Request is for script(s) to be escript to mail order [facility]. Lupis Smith LPN [facility] 11-27-2024 Miscellaneous Notes Pharmacy [facility] [employer] message requesting the following refill. Requested Prescriptions Pending Prescriptions Disp Refills verapamil SR (CALAN SR) 180 mg CR tablet [Pharmacy Med Name: VERAPAMIL HYDROCHLORIDE ER 180 MG Oral Tablet Extended Release] 180 tablet 3 Sig: TAKE 2 TABLETS AT BEDTIME Patient last appointment: 09/17/2024 Next appointment 03/20/2025 Patient Phone numbers: [phone] (home) Request is for script(s) to be escript to mail order [facility]. Lupis Smith LPN documented in this encounter [facility] 11-23-2024 Radiology Diagnostic study note [facility] [address] [place] [address] Chest without Contrast MR#: [id number] Acct: [id number] Name: ESTEBAN WOODS Rep #: [id number] : 1935 F 89 From: Richy Rodriguez MD PCP: Dr. Donovan Nice, DO Status: REG CLI Study:Chest without Contrast Date of Exam: 11/21/24 Exam# [id number] Ordering Dr: Walton DO PROCEDURE: CHEST WITHOUT CONTRAST 11/21/2024 REASON FOR EXAM: QUACH TECHNIQUE: Chest CT without contrast. Coronal and Sagittal reconstruction series were provided. One or more dose reduction techniques were used (e.g., Automated exposure control, adjustment of the mA and/or kV according to patient size, use of iterative reconstruction technique RADIATION DOSE SUMMARY: CTDlvol: 9.26 mGy DLP: 305.57 mGycm COMPARISON: Prior chest radiograph dated June 11, 2024. FINDINGS: Hardware: None Lymph nodes: Scattered mediastinal lymph nodes. The largest lymph node is in the region of the aorto pulmonary window and measures 2 point 4 cm. Heart and Vasculature: Cardiomegaly. Atherosclerotic calcifications of the thoracic aorta. Thoracic aorta and pulmonary arteries have normal contours; noncontrast technique limits evaluation. Coronary Artery Calcifications: Present Lungs and Airways: Diffuse increased interstitial markings with small bullous changes in the upper lobe on the right side with sub pleural cystic changes suggestive of chronic interstitial fibrosis. Pleura: No evidence of pleural effusion. Upper Abdomen: Calcification of the abdominal aorta and the major visceral branches. Bones: Degenerative changes of the thoracic spine. CT/Chest without Contrast IMPRESSION: Coronary artery calcification (CAC) is is present. Cardiomegaly. 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 Prominence of the mediastinal lymph nodes. Reading Location: [facility] CC: Dr. Tamir Cardoso, DO; Dr. Donovan Nice, DO ~ Rail Project Engineer: Aleksandar [facility] 11-08-2024 Telephone encounter Note This nurse spoke to nurse at jail. Orders verified, Dr. Nice has now taken over patients care Kathy Garrett LPN November 08, 2024 9:50 AM [facility] 11-08-2024 Miscellaneous Notes This nurse spoke to nurse at jail. Orders verified, Dr. Nice has now taken over patients care Kathy Garrett LPN November 08, 2024 9:50 AM Message left for admissions to phone office in regards to orders and H and P. Kathy Garrett LPN November 08, 2024 9:02 AM Althea from [facility] left message on senior front end developer voicemail stating patient was admitted to their facility today and was informed by son that Dr. Harding changed recent medications, they would like a order list faxed to [phone] and contact them by phone if any questions at [phone] Annette Nieves documented in this encounter [facility] 11-08-2024 Telephone encounter Note Message left for admissions to phone office in regards to orders and H and P. Kathy Garrett LPN November 08, 2024 9:02 AM [facility] 11-07-2024 Telephone encounter Note Althea from [facility] left message on senior front end developer voicemail stating patient was admitted to their facility today and was informed by son that Dr. Harding changed recent medications, they would like a order list faxed to [phone] and contact them by phone if any questions at [phone] Annette Nieves [facility] 11-06-2024 Telephone encounter Note This nurse spoke with patients son. Son stated that patient is experiencing increased shortness of breath and bilateral lower extremity edema. This nurse informed of information of medication changes and upcoming lab orders. Son verbalized understanding, this nurse is to send order to [facility]. Additionally, patient does not currently see a Senior Financial Consultant. Patient was evaluated and treated for shortness of breath at [facility] on 10-22-2024 Patient was seen in 2008 by Cardiology when diagnosed with A Fib, but did not want to go for the additional testing that they wanted her to receive. Patient does have additional testing scheduled, ordered by Cooling System Operator: Pulmonary Function Test November 09, 2024 CT Heart and Lungs November 21, 2024 Echocardiogram November 23, [address] Cardoso Cooling System Operator December 05, 2024 Patient is also moving into [facility] tomorrow. Kathy Garrett LPN November 06, 2024 11:15 AM [facility] 11-06-2024 Miscellaneous Notes This nurse spoke with patients son. Son stated that patient is experiencing increased shortness of breath and bilateral lower extremity edema. This nurse informed of information of medication changes and upcoming lab orders. Son verbalized understanding, this nurse is to send order to [facility]. Additionally, patient does not currently see a Senior Financial Consultant. Patient was evaluated and treated for shortness of breath at [facility] on 10-22-2024 Patient was seen in 2008 by Cardiology when diagnosed with A Fib, but did not want to go for the additional testing that they wanted her to receive. Patient does have additional testing scheduled, ordered by Cooling System Operator: Pulmonary Function Test November 09, 2024 CT Heart and Lungs November 21, 2024 Echocardiogram November 23, [address] Cardoso Cooling System Operator December 05, 2024 Patient is also moving into [facility] with [facility] tomorrow. Kathy Garrett LPN November 06, 2024 [...] Son stated that due to lab work, Cooling System Operator Dr. Cardoso would like PCP to look over Diuretics. Patient is currently taking Lasix 20 mg every day, and also Losartan - Hydrochlorothiazide 100-25 mg daily. Kathy Garrett LPN November 06, 2024 10:15 AM Patient's son Benjamín contacted the office requesting a phone call back regarding update on Erin. Pt can be reached at [phone] Annette Nieves documented in this encounter [facility] 11-06-2024 Telephone encounter Note Does patient have symptoms of fluid overload.? Does she have upcoming appointment with cardiology? Increase lasix to 40mg daily for 4 days if having sxs. Hold losartan/hctz.while on increased dose of lasix.recheck bnp in 6 days [facility] 11-06-2024 Telephone encounter Note Images from the original note were not included. This nurse spoke to patients son. Son stated that due to lab work, Cooling System Operator Dr. Cardoso would like PCP to look over Diuretics. Patient is currently taking Lasix 20 mg every day, and also Losartan - Hydrochlorothiazide 100-25 mg daily. Kathy Garrett LPN November 06, 2024 10:15 AM [facility] 11-05-2024 Evaluation note Diagnosis Onset Date Resolution Abnormal CXR acute November 05, 025 10:58am QUACH (dyspnea on exertion) acute November 05, 2024 10:58am [facility] Work Phone: 1(331) 799-481007-28-2025 Evaluation note* Diagnosis Onset Date Resolution Status Admit Date Abnormal CXR acute November 05, 025 10:58am QUACH (dyspnea on exertion) acute November 05, 2024 10:58am Pulmonary hypertension acute [place] 2024 8:41am [facility] Work Phone: 1(343) 788-175707-28-2025 Telephone encounter Note* Telephone Encounter - Annette Nieves - 11/05/2024 9:51 AM EDT Patient's son Benjamín contacted the office requesting a phone call back regarding update on Erin. Pt can be reached at [phone] Annette Nieves [facility]07-22-2025 Telephone encounter Note* Telephone Encounter - Kathy [...] Garrett LPN October 30, 2024 9:22 AM [facility]07-22-2025 Miscellaneous Notes* Telephone Encounter - Kathy Garrett [...] Eliquis 5mg tablets to be sent to [facility] pharmacy in [place] on file. Son states previous refill request was cancelled by Dr. Harding per [facility] mail order, she will be out of medication. Also son wanted to know if Dr. Harding could place an order for oxygen. Son can be contacted at [phone] Next appt: 03/20/2025 Last appt: 09/17/2024 Annette Nieves [facility] Tele[facility] encounter Note * Telephone Encounter - Annette Nieves - 10/29/2024 1:56 PM EDT Patient's son Benjamín phoned the office requesting Rx Eliquis 5mg tablets to be sent to [facility] pharmacy in [place] on file. Son states previous refill request was cancelled by Dr. Harding per [facility] mail order, she will be out of medication. Also son wanted to know if Dr. Harding could place an order for oxygen. Son can be contacted at [phone] Next appt: 03/20/2025 Last appt: 09/17/2024 Annette Nieves [facility]07-15-2025 NoteHNO ID: [id number] Author: ARCELIA SCHOFIELD RN Service: ? Author Type: Registered Nurse Type: Progress Notes Filed: 10/23/2024 15:07 Note Text: [facility] Chart Review Provider Action/FYI Patient identified by name and date of :YES Patient identified for Care Coordination from: Notify ED Discharge report Was patient contacted?: Yes, but unable to make contact and unable to leave a voicemail Patient discharged from [place] on 10/22/24 ED Provider Discharge summary: Discharge [...] Day Outreach Plan:Follow up call needed:[facility] of Present illness Narrative* Arcelia Schofield RN - 10/23/2024 2:31 PM EDT [facility] Chart Review Provider Action/FYI Patient identified by name and date of :YES Patient identified for Care Coordination from: Notify ED Discharge report Was patient contacted?: Yes, but unable to make contact and unable to leave a voicemail Patient discharged from [place] on 10/22/24 ED Provider Discharge summary: Discharge [...] Day Outreach Plan:Follow up call needed:Yes Arcelia Schofield RN documented in this encounterCleveland [id number] NotePatient Outreach (MRCAC) ESTEBAN WOODS ([id number]) 1935 F T Date Time Provider Department 10/23/24 ARCELIA SCHOFIELD [facility] During your visit today, we recorded the following information about you: Arcelia Schofield RN 10/23/2024 3:07 PM Signed [facility] Chart Review Provider Action/FY Patient identified by name and date of :YES Patient identified for Care Coordination from: Notify ED Discharge report Was patient contacted?: Yes, but unable to make contact and unable to leave a voicemail Patient discharged from [place] on 10/22/24 ED Provider Discharge summary: Discharge [...] Day Outreach Plan:Follow up call needed:Yes Arcelia Schofield RN Allergies As of Date: 10/23/2024 Noted Allergy Reaction CIGARETTE SMOKE 09/03/2020 16 - Unknown Date Reviewed: 09/17/2024 Reviewed by: Kathy Garrett LPN - Fully Assessed 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 - sv-tm-NT-vit M-ewqul-cvs-coQ10 (DAILY MULTIVITAMIN) 200-100-500 mcg cap Take 1 capsule by mouth once daily. Problem List As Of Date 10/23/2024 Noted Resolved Atrial fibrillation (HCC) [I48.91] 08/30/2019 Hypertension, essential [I10] 02/25/2017 Hypothyroidism [E03.9] 02/25/2017 Osteoarthritis of knee [M17.9] 09/01/2017 Hyperlipidemia, unspecified [E78.5] 09/26/2023 Intracranial meningioma (HCC) [D32.0] 06/15/2024 Encounter Status:Closed by ARCELIA SCHOFIELD on 10/23/24[facility] 10-22-2024 Discharge summary [facility] Medical Records Department [address] [place] [address] Emergency Department Summary 10/22/24 MR#: [id number] Acct: [id number] Name: ESTEBAN WOODS Rep #:[id number] : 1935 89 From: Jeyson Mayer MD [...] [facility] History Hypertension Home Medications ?Medication [...] STEMI. WBC count normal at 9.9 with hyywqzznwq66.9, hematocrit 42.9, platelet count normal at 234. [...] 73.2 H Lymph % (Auto) 17.8 L [place] % (Auto) 7.1 Eos % (Auto) 0.8 [...] Sl. Cloudy Urine pH 6.0 Ur Specific [place] 1.010 Urine Protein 30 H Urine Glucose [...] - 3-5 Days if not improving Hyperbaric Medicine,[place] Wound and [Non-Staff] - As Needed Activity Restrictions/Additional Instructions: Antibiotics as directed. Return with fever, increased redness of right lower extremity, new or worsening symptoms. Follow-up with pulmonology as soon as possible. Print Language: Fijian Disposition Disposition: Home, Self Care What to do if you have Problems For any increased pain, shortness of breath, bleeding, nausea or vomiting, chestpain, or any unexpected problems, contact your Primary Care Provider. Call [facility] ([phone]) or report tothe closest Emergency Room. Call 911 if necessary. 10/22/241927 Cosigner Signature (if applicable): CC: Dr. Kodak Harding MD ~ Signed [facility]07-14-2025 Radiology Diagnostic study note [facility] [address] [place], [place] [address] Chest PA and Lateral MR#: [id number] Acct: [id number] Name: ESTEBAN WOODS Rep #: [id number] : 1935 F 89 From: Caleb Espinoza MD PCP: Dr. Kodak Harding MD Status: REG ER Study:Chest PA and Lateral Date of Exam: 10/22/24 Exam# [id number] Ordering Dr: Jeyson Mayer MD PROCEDURE: CHEST [...] to exclude. No pleural effusions. Reading Location: [id number] CC: Dr. Jeyson Mayer MD; Dr. Kodak Harding MD ~ Rail Project Engineer: Signed [facility]07-14-2025 Discharge summary Author Jeyson Mayer [facility] Note Date/Time October 22, 2024 7:28 pm [facility] Medical Records Department [address] [place] [address] Emergency Department Summary 10/22/24 MR#: [id number] Acct: [id number] Name: ESTEBAN WOODS Rep #:[id number] : 1935 89 From: Jeyson Mayer MD [...] [facility] Medical History Hypertension Home Medications ?Medication [...] 73.2 H Lymph % (Auto) 17.8 L [place] % (Auto) 7.1 Eos % (Auto) 0.8 [...] Sl. Cloudy Urine pH 6.0 Ur Specific [place] 1.010 Urine Protein 30 H Urine Glucose [...] - 3-5 Days if not improving Hyperbaric Medicine,[facility] and [Non-Staff] - As Needed Activity Restrictions/Additional Instructions: Antibiotics as directed. Return with fever, increased redness of right lower extremity, new or worsening symptoms. Follow-up with pulmonology as soon as possible. Print Language: Fijian Disposition Disposition: Home, Self Care What to do if you have Problems For any increased pain, shortness of breath, bleeding, nausea or vomiting, chestpain, or any unexpected problems, contact your Primary Care Provider. Call [facility] ([phone]) or report to the closest Emergency Room. Call 911 if necessary. 10/22/241927 <Electronically signed by Jeyson Mayer MD> Cosigner Signature (if applicable): CC: Dr. Kodak Harding MD ~ Signed [facility] Work Phone: [phone] Instructions* Patient Instructions* Kodak Harding MD - [...] review all the medicines you take, even ygtw-pae-kyxsict medicines. As you get older, the way [...] have certain medical conditions. [facility] NoteHNO ID: [id number] Author: KODAK HARDING MD Service: ? Author [...] 2 tablets by mouth daily at bedtime. ww-yz-JS-vit I-eadzh-xjt-coQ10 (DAILY MULTIVITAMIN) 200-100-500 mcg cap Take 1 [...] and a history (more content not included)...[facility]06-09-2025 History of Present illness Narrative* Kodak Harding MD - 09/17/2024 2:10 PM EDT Images from the original note were not included. Khai Woods is an 89-year-old female Presents [...] 2 tablets by mouth daily at bedtime. vq-jz-JF-vit Q-hobie-zzz-coQ10 (DAILY MULTIVITAMIN) 200-100-500 mcg cap Take 1 [...] (I10) - Blood pressure is well-controlled. 8. longterm (current) use of anticoagulants (Z79.01) - Continue [...] analgesics. Kodak Harding MD 09/17/2024 Recording using untapt software for draft documentation of the visit was discussed with the patient/authorized district sales representative; all questions welcomed and answered. Patient/authorized district sales representative agreed to proceed Medicare Health [...] series) declined Covid-19 Vaccine( season) declined Esteban Naveed Woods is here [...] 17, 2024 1:09 PM documented in this encounter[facility]-2025 NoteHNO ID: [id number] Author: KATHY GARRETT LPN Service: ? Author Type: LICENSED NURSE Type: Progress Notes Filed: 09/17/2024 14:13 Note Text: [facility] DTaP,Tdap,Td Vaccine(1 - Tdap) declined Shingrix Vaccine(1 of 2) declined Pneumococcal Vaccine: 50+(1 of 1 - PCV) declined Bone Density Screening RSV Vaccine(1 - 1-dose 75+ series) declined Covid-19 Vaccine( season) declined Esteban Naveed Woods is here [...] Kathy Garrett LPN September 17, 2024 1:09 [facility]04-21-2025 NoteHNO ID: [id number] Author: KODAK HARDING MD Service: ? Author [...] 2 tablets by mouth daily at bedtime. hn-zg-XA-vit B-vcrpb-hei-coQ10 (DAILY MULTIVITAMIN) 200-100-500 mcg cap Take 1 [...] 1. Paroxysmal atrial fibrillation (HCC) (I48.0) 2. 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 Patient/authorized district sales representative agreed to [facility]04-21-2025 History of Present illness Narrative* [...] 2 tablets by mouth daily at bedtime. bv-vs-UQ-vit F-ykpov-oqd-coQ10 (DAILY MULTIVITAMIN) 200-100-500 mcg cap Take 1 [...] 1. Paroxysmal atrial fibrillation (HCC) (I48.0) 2. longterm (current) use of anticoagulants (Z79.01) - No [...] (E78.2) Kodak Harding MD 07/30/2024 Recording using untapt software for draft documentation of the visit was discussed with the patient/authorized district sales representative; all questions welcomed and answered. 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 Denies UTI symptoms. Patient states that edema has been decreased. No refills needed Kathy Garrett LPN July 30, 2024 1:01 PM documented in this encounterMount [facility]04-21-2025 NoteHNO ID: [id number] Author: KATHY GARRETT LPN Service: ? Author [...] to reduce risk of recurrence of UTI longterm current use of anticoagulant therapy Z79.01 Eliquis twice daily Acute heart failure with mildly reduced ejection fraction (HFmrEF, 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) I50.21 Improved on Lasix Patient has been experiencing shortness of breath after ambulation. Denies UTI symptoms. Patient states that edema has been decreased. No refills needed Kathy Garrett LPN July 30, 2024 1:01 [facility] NoteHNO ID: [id number] Author: ARCELIA SCHOFIELD RN Service: ? Author Type: Registered Nurse Type: Progress Notes Filed: 07/05/2024 13:45 Note Text: Unable to make contact Provider Action/MICHEAL Patient identified by name and date of : YES An attempt was made to contact: Patient Was a voicemail left? No unable to leave a voicemail Outreach Plan: Follow up call needed:No [facility]celia Sch[facility]ield [facility] History of Present illness Narrative* Arcelia Schofield RN - 07/05/2024 1:42 PM EDT Unable to make contact Provider Action/MICHEAL Patient identified by name and date of : YES An attempt was made to contact: Patient Was a voicemail left? No unable to leave a voicemail Outreach Plan: Follow up call needed:No Arcelia Schofield RN documented in this encounterMount Carmel Health System03-27-2025 NotePatient Outreach (MRCAC) ESTEBAN WOODS ([id number]) 1935 F CHT Date Time Provider Department 07/05/24 ARCELIA SCHOFIELD [facility] During your visit today, we recorded the following information about you: Arcelia Schofield RN 07/05/2024 1:45 PM Signed Unable to make contact Provider Action/FYI Patient identified by name and date of : YES An attempt was made to contact: Patient Was a voicemail left? No unable to leave a voicemail Outreach Plan: Follow up call needed:No Arcelia Schofield RN Allergies As of Date: 07/05/2024 Noted [...] tablets by mouth daily at bedtime. - md-wh-HC-vit L-qhkxr-jij-coQ10 (DAILY MULTIVITAMIN) 200-100-500 mcg cap Take 1 capsule by mouth once daily. Problem List As Of Date 07/05/2024 Noted Resolved Atrial fibrillation (HCC) [I48.91] 08/30/2019 Hypertension, essential [I10] 02/25/2017 Hypothyroidism [E03.9] 02/25/2017 Osteoarthritis of knee [M17.9] 09/01/2017 Encounter Status:Closed by ARCELIA SCHOFIELD on 07/05/24[facility] 06-27-[facility] NoteHNO ID: [id number] Author: KODAK HARDING MD Service: ? Author Type: Physician Type: Progress Notes Filed: 06/27/2024 14:08 Note Text: Subjective Esteban Woods is a 88 year old female.Patient is in office for a Transition of Care Visit following recent hospital stay. Patient was evaluated and treated at [facility] from 06-11-2024 to 06-15-2024 for UTI [...] 2 tablets by mouth daily at bedtime. ps-sa-MN-vit D-qhcow-xbm-coQ10 (DAILY MULTIVITAMIN) 200-100-500 mcg cap Take 1 [...] unspecified whether acute organ dysfunction present (HCC) A41.9 Resolved 4. Acute respiratory failure with hypoxia ([facility]) J96.01 Resolved 5. Acute lower UTI N39.0 Resolved. Discussed hygiene to reduce risk of recurrence of UTI 6. 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 Patient was evaluated and treated at [facility] from 06-11-2024 to 06-15-2024 for UTI [...] 2 tablets by mouth daily at bedtime. ix-ym-LL-vit J-zojfk-tlx-coQ10 (DAILY MULTIVITAMIN) 200-100-500 mcg cap Take 1 [...] Encounter Diagnosis ICD-10-CM 1. Persistent atrial fibrillation ([facility]) I48.19 RVR resolved. Continue beta-marilyn. Monitor symptoms. 2. Hypertension, essential I10 Stable 3. Sepsis, due to unspecified organism, unspecified whether acute organ dysfunction present ([facility]) A41.9 Resolved 4. Acute respiratory failure with hypoxia ([facility]) J96.01 Resolved 5. Acute lower UTI N39.0 Resolved. Discussed hygiene to reduce risk of recurrence of UTI 6. 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 Patient was evaluated and treated at [facility] from 06-11-2024 to 06-15-2024 for UTI [...] 27, 2024 1:03 PM documented in this encounterMount Carmel Health System03-19-2025 NoteHNO ID: [id number] Author: KATHY GARRETT LPN Service: ? Author Type: LICENSED NURSE Type: Progress Notes Filed: 06/27/2024 14:08 Note Text: Patient is in office for a Transition of Care Visit following recent hospital stay. Patient was evaluated and treated at [facility] from 06-11-2024 to 06-15-2024 for UTI [...] Kathy Garrett LPN June 27, 2024 1:03 PM[facility]03-11-2025 NoteHNO ID: [id number] Author: ARCELIA SCHOFIELD RN Service: ? Author Type: Registered Nurse Type: Progress Notes Filed: 06/19/2024 14:05 Note Text: TRANSITION CARE MANAGEMENT (TCM) FOLLOW-UP NOTE Provider Action/FYI Patient identified by name and date of : YES Spoke to patient Discharge Network Status: Utx-kx-Kydbndb (OON) Discharge Summary: Patient answered the phone, I introduced myself and patient then hung up the phone. Magazine Publisher plan for next outreach: Will follow up yes LOUISE Education Ordered -: No Arcelia Schofield RN June 19, 2024 2:04 PM[facility]03-[facility] History of Present illness Narrative* Arcelia Schofield RN - 06/19/2024 1:46 PM EDT TRANSITION CARE MANAGEMENT (TCM) FOLLOW-UP NOTE Provider Action/LEANDRAI Patient identified by name and date of : YES Spoke to patient Discharge Network Status: Hvf-fb-Pwhnfjh (OON) Discharge Summary: Patient answered the phone, I introduced myself and patient then hung up the phone. Magazine Publisher plan for next outreach: Will follow up yes LOUISE Education Ordered -: No Arcelia Schofield RN June 19, 2024 2:04 PM documented in this encounterMount Carmel Health System03-11-2025 NotePatient Outreach (MRCAC) ESTEBAN WOODS ([id number]) 1935 F CHT Date Time Provider Department 06/19/24 ARCELIA SCHOFIELD [facility] During your visit today, we recorded the following information about you: Arcelia Schofield RN 06/19/2024 2:05 PM Addendum TRANSITION CARE MANAGEMENT (TCM) FOLLOW-UP NOTE Provider Action/FYI Patient identified by name and date of : YES Spoke to patient Discharge Network Status: Chb-ca-Icxvetk (OON) Discharge Summary: Patient answered the phone, I introduced myself and patient then hung up the phone. Magazine Publisher plan for next outreach: Will follow up yes LOUISE Education Ordered -: No Arcelia Schofield RN June 19, 2024 2:04 PM Allergies [...] 81 mg by mouth once daily. - ch-di-LY-vit V-qbwkj-ljm-coQ10 (DAILY MULTIVITAMIN) 200-100-500 mcg cap Take 1 capsule by mouth once daily. Problem List As Of Date 06/19/2024 Noted Resolved Atrial fibrillation (HCC) [I48.91] 08/30/2019 Hypertension, essential [I10] 02/25/2017 Hypothyroidism [E03.9] 02/25/2017 Osteoarthritis of knee [M17.9] 09/01/2017 Encounter Status:Closed by ARCELIA SCHOFIELD on 06/19/24[facility] 06-18-2024 NoteHNO ID: [id number] Author: ARCELIA SCHOFIELD RN Service: ? Author Type: Registered Nurse Type: Progress Notes Filed: 06/18/2024 12:18 Note Text: Unable to make contact Provider Action/FYI Patient identified by name and date of : YES An attempt was made to contact: Patient Was a voicemail left? No unable to leave a voicemail Outreach Plan: Follow up call needed:Farrah Schofield [facility]NO[facility]03-10-2025 History of Present illness Narrative* Arcelia Schofield RN - 06/18/2024 12:17 PM EDT Unable to make contact Provider Action/FYI Patient identified by name and date of : YES An attempt was made to contact: Patient Was a voicemail left? No unable to leave a voicemail Outreach Plan: Follow up call needed:No Arcelia Schofield RN documented in this encounterMount Carmel Health System03-10-2025 NotePatient Outreach (MRCAC) ESTEBAN WOODS ([id number]) 1935 F CHT Date Time Provider Department 06/18/24 ARCELIA SCHOFIELD [facility] During your visit today, we recorded the following information about you: Arcelia Schofield RN 06/18/2024 12:18 PM Signed Unable to make contact Provider Action/FYI Patient identified by name and date of : YES An attempt was made to contact: Patient Was a voicemail left? No unable to leave a voicemail Outreach Plan: Follow up call needed:No Arcelia Schofield RN Allergies As of Date: 06/18/2024 Noted [...] 81 mg by mouth once daily. - nn-vi-FF-vit R-hnzpi-fng-coQ10 (DAILY MULTIVITAMIN) 200-100-500 mcg cap Take 1 capsule by mouth once daily. Problem List As Of Date 06/18/2024 Noted Resolved Atrial fibrillation (HCC) [I48.91] 08/30/2019 Hypertension, essential [I10] 02/25/2017 Hypothyroidism [E03.9] 02/25/2017 Osteoarthritis of knee [M17.9] 09/01/2017 Encounter Status:Closed by ARCELIA SCHOFIELD on 06/18/24[facility] 06-15-[facility] Discharge summary Author Aster Ramsey [facility] Note Date/Time June 15, 2024 1:[address] [facility] Medical Records Department [address] [place] [address] Discharge Summary 06/15/24 1343 MR#: [id number] Acct: [id number] Name: ESTEBAN WOODS Rep #:[id number] : 1935 88 From: Aster Ramsye MD PCP: Dr. Kodak Hadring MD Status:ADM IN Location: [place] [address] Providers Date of Admission: 06/11/24 Primary Care [...] daily. 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 Physical [...] be placed): Home, Self Care 06/15/24 1358 <Electronically signed by Aster Ramsey MD> Cosigner Signature (if applicable): CC: Dr. Aster Ramsey MD; Dr. Kodak Harding MD~ Signed [facility] Work Phone: 1(962) 930-199803-07-2025 Discharge summary [facility] Medical Records Department [address] [place] [address] Discharge Summary 06/15/24 1343 MR#: [id number] Acct: [id number] Name: ESTEBAN WOODS Rep #:[id number] : 1935 88 From: Aster Ramsey MD PCP: Dr. Kodak Harding MD Status:ADM IN Location: [place] [address] Providers Date of Admission: 06/11/24 Primary Care [...] daily. 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 Physical [...] Ramsey MD; Dr. Kodak Harding MD~ Signed [facility]03-07-2025 [facility] Medical Records Department [address] [place] [address] Discharge Summary 06/15/24 1343 MR#: [id number] Acct: [id number] Name: ESTEBAN WOODS Rep #: [id number] : 1935 88 From: Aster Ramsey MD PCP: Dr. Kodak Harding MD Status:ADM IN Location: [place] [address]-1 Providers Date of Admission: 06/11/24 Primary Care [...] daily. 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 Physical [...] Mio Benitez; Junaid Travis (more content not included)...[facility]03-06-2025 Progress note Author Aster Ramsey [facility] Note Date/Time June 14, 2024 10:0 6am [facility] Medical Records Department [address] [place] [address] Progress Note - Hospitalist 06/14/24 1002 MR#: [id number] Acct: [id number] Name: ESTEBAN WOODS Rep #:[id number] : 1935 88 From: Aster Ramsey MD PCP: Dr. Kodak Harding MD Status:ADM IN Location: ICU ICU05- Reason for Visit Reason for Visit: Diagnoses [...] Cosigner Signature (if applicable): CC: ~ Signed [facility] Work Phone: [phone]) 288-862903-06-2025 Progress note [facility] Medical Records Department [address] [place] [address] Progress Note - Hospitalist 06/14/24 1002 MR#: [id number] Acct: [id number] Name: ESTEBAN WOODS Rep #:[id number] : 1935 88 From: Aster Ramsey MD [...] Cosigner Signature (if applicable): CC: ~ Signed [facility]03-05-2025 Progress note Author Aster Ramsey [facility] Note Date/Time June 13, 2024 11:2 4am [facility] Medical Records Department [address] [place] [address] Progress Note - Hospitalist 06/13/24 0923 MR#: [id number] Acct: [id number] Name: ESTEBAN WOODS Rep #:[id number] : 1935 88 From: Aster Ramsey MD PCP: Dr. Kodak Harding MD Status:ADM IN Location: ICU [place] [address] Reason for Visit Reason for Visit: Diagnoses [...] 79.4 H, Lymph % (Auto) 11.5 L, [place] % (Auto) 7.5, Eos % (Auto) 0.6, [...] this time Charges/Coding Visit Charges Inpatient E&M: 68407 Init Hosp L2 06/13/24 1124 <Electronically signed by Aster Ramsey MD> Cosigner Signature (if applicable): CC: ~ Signed [facility] Work Phone: 1(943) 656-651403-05-2025 Progress note [facility] Medical Records Department [address] [place] [address] Progress Note - Hospitalist 06/13/24 0923 MR#: [id number] Acct: [id number] Name: ESTEBAN WOODS Rep #:[id number] : 1935 88 From: Aster Ramsey MD [...] 79.4 H, Lymph % (Auto) 11.5 L, [place] % (Auto) 7.5, Eos % (Auto) 0.6, [...] this time Charges/Coding Visit Charges Inpatient E&M: 43918 Init Hosp L2 06/13/24 1124 Cosigner Signature (if applicable): CC: ~ Signed [facility]03-04-2025 Progress note Author Junaid Travis [facility] Note Date/Time June 12, 2024 9:04 am [facility] Medical Records Department [address] [place] [address] Progress Note - Hospitalist 06/12/24 0900 MR#: [id number] Acct: [id number] Name: ESTEBAN WOODS Rep #:[id number] : 1935 88 From: Junaid robertson MD [...] % (Auto) 69.7, Lymph % (Auto) 21.4, [place]% (Auto) 7.0, Eos % (Auto) 0.8, Baso [...] Clarity Cloudy, Urine pH 6.5, Ur Specific [place] 1.015, Urine Protein 100 H, Urine Glucose [...] 75.5 H, Lymph % (Auto) 14.7 L, [place] % (Auto) 8.1, Eos % (Auto) 0.7, [...] changes in the bilateral lungs. Reading Location: [facility] Brain CT 06/11/24 18:17 IMPRESSION: 1. No acute intracranial abnormality. 2. Age-appropriate volume loss and remote small vessel ischemic changes 3. Left parietal meningioma Reading Location: [facility] Physical Exam Narrative General: Alert, Oriented x3, [...] DVT: Eliquis Charges/Coding Visit Charges Inpatient E&M: 35035 Subs Hosp L2 06/12/24 0904 <Electronically signed by Junaid Travis MD> Cosigner Signature (if applicable): CC: ~ Signed [facility] Work Phone: 1(855) 631-585203-04-2025 Progress note [facility] Medical Records Department [address] [place] [address] Progress Note - Hospitalist 06/12/24 0900 MR#: [id number] Acct: [id number] Name: ESTEBAN WOODS Rep #:[id number] : 1935 88 From: Junaid robertson MD [...] % (Auto) 69.7, Lymph % (Auto) 21.4, [place]% (Auto) 7.0, Eos % (Auto) 0.8, Baso [...] Clarity Cloudy, Urine pH 6.5, Ur Specific [place] 1.015, Urine Protein 100 H, Urine Glucose [...] 75.5 H, Lymph % (Auto) 14.7 L, [place] % (Auto) 8.1, Eos % (Auto) 0.7, [...] changes in the bilateral lungs. Reading Location: [facility] Brain CT 06/11/24 18:17 IMPRESSION: 1. No acute intracranial abnormality. 2. Age-appropriate volume loss and remote small vessel ischemic changes 3. Left parietal meningioma Reading Location: [facility] Physical Exam Narrative General: Alert, Oriented x3, [...] DVT: Eliquis Charges/Coding Visit Charges Inpatient E&M: 06098 Subs Hosp L2 06/12/24 0904 Cosigner Signature (if applicable): CC: ~ Signed [facility]03-04-2025 Discharge summary Author Bob Liu [facility] Note Date/Time June 11, 2024 11:[address] [facility] Medical Records Department [address] [place] [address] Emergency Department Summary 06/11/24 MR#: [id number] Acct: [id number] Name: ESTEBAN WOODS Rep #:[id number] : 1935 88 From: Bob Irwin PCP: Dr. Kodak Harding MD Status:ADM IN Location: ICU ICU[address] [place] [address] History of Present Illness Chief Complaint: Neuro [...] reviewed, Vital signs reviewed Constitutional: please see [facility] HENT: MMM Eyes: Pupils equal round and [...] others: The patient's son Consults: Neurosurgery at [facility] Emergency is Dr. Donaldson, Internal Medicine (Dr. Crum) [facility] Narrative: The patient was [...] Dr. Benitez initially recommended transfer. Discussed with [facility] Neurosurgery Dr. Donaldson who noted the patient [...] to ICU This note was generated with [employer] dictation software. It may contain incorrectwords, spelling, [...] % (Auto) 69.7 Lymph % (Auto) 21.4 [place] % (Auto) 7.0 Eos % (Auto) 0.8 [...] Clarity Cloudy Urine pH 6.5 Ur Specific [place] 1.015 Urine Protein 100 H Urine Glucose [...] Discharge Plan Disposition Disposition: Acute Care Hospital [facility] Discharge Date/Time: 06/11/24 22:55 What to do if you have Problems For any increased pain, shortness of breath, bleeding, nausea or vomiting, chestpain, or any unexpected problems, contact your Primary Care Provider. Call [facility] ([phone]) or report to the closest Emergency Room. Call 911 if necessary. 06/11/24 4216 <Electronically signed by Bob Liu DO> Cosigner Signature (if applicable): CC: Dr. Kodak Harding MD ~ Signed [facility] Work Phone: 1(858) 984-515703-04-2025 Evaluation note* Diagnosis Onset Date Resolution Status Admit Date Atrial fibrillation with RVR acute June 11, 2024 10:45pm Elevated troponin acute June 112024 10:45pm Meningioma, cerebral acute Kenan h 2024 10:45pm Sepsis acute June 11 10:45pm Urinary tract infection acute M arch 2024 10:45pm [facility] Work Phone: 1(661) 174-168903-04-2025 History and physical note Author Mio Benitez [facility] Note Date/Time June 11, 2024 10:[address] [facility] Medical Records Department [address] [place] [address] History & Physical Exam 06/11/242228 MR#: [id number] Acct: [id number] Name: ESTEBAN WOODS Rep #:[id number] : 1935 88 From: Mio Benitez MD PCP: Dr. Kodak Harding MD Status:ADM IN Location: ICU ICU05-1 [facility] - General General Date of Admission: 06/11/24 [...] parietal meningioma reported for which neurosurgery at [facility] Was consulted by ER physician and felt [...] treatment of urinary tract infection with sepsis [facility] Medical History (Updated 06/11/24 @ 22:39 [...] % (Auto) 69.7, Lymph % (Auto) 21.4, [place]% (Auto) 7.0, Eos % (Auto) 0.8, Baso [...] Clarity Cloudy, Urine pH 6.5, Ur Specific [place] 1.015, Urine Protein 100 H, Urine Glucose [...] changes in the bilateral lungs. Reading Location: [facility] Brain CT 06/11/24 18:17 IMPRESSION: 1. No acute intracranial abnormality. 2. Age-appropriate volume loss and remote small vessel ischemic changes 3. Left parietal meningioma Reading Location: [facility] Assessment & Plan Assessment/Plan (1) Urinary tract [...] as above Charges/Coding Visit Charges Inpatient E&M: 67162 Init Hosp L2 06/11/24 2244 <Electronically signed by Mio Benitez MD> Cosigner Signature (if applicable): CC: Dr. Mio Benitez MD; Dr. Kodak Harding MD~ Signed [facility] Work Phone: 1(687) 255-373403-03-2025 Discharge summary [facility] Medical Records Department [address] [place] [address] Emergency Department Summary 06/11/24 MR#: [id number] Acct: [id number] Name: ESTEBAN WOODS Rep #:[id number] : 1935 88 From: Bob Irwin PCP: Dr. Kodak Harding MD Status:ADM IN Location: ICU ICU05-1 [facility] History of Present Illness Chief Complaint[facility] Medical History (Updated 06/11/24 @ 22:39 [...] others: The patient's son Consults: Neurosurgery at [facility] Emergency is Dr. Donaldson, Internal Medicine (Dr. [...] Dr. Benitez initially recommended transfer. Discussed with [facility] NeurosurgeryDr. Donaldson who noted the patient would [...] to ICU This note was generated with [employer] dictation software. It may contain incorrectwords, spelling, [...] % (Auto) 69.7 Lymph % (Auto) 21.4 [place] % (Auto) 7.0 Eos % (Auto) 0.8 [...] Clarity Cloudy Urine pH 6.5 Ur Specific [place] 1.015 Urine Protein 100 H Urine Glucose [...] Discharge Plan Disposition Disposition: Acute Care Hospital [facility] Discharge Date/Time: 06/11/24 22:55 What to do if you have Problems For any increased pain, shortness of breath, bleeding, nausea or vomiting, chestpain, or any unexpected problems, contact your Primary Care Provider. Call [facility] ([phone]) or report tothe closest Emergency Room. Call 911 if necessary. 06/11/24 6505 Cosigner Signature (if applicable): CC: Dr. Kodak Harding MD ~ Signed [facility]03-03-2025 History and physical note [facility] Medical Records Department [address] [place] [address] History & Physical Exam 06/11/241 MR#: [id number] Acct: [id number] Name: ESTEBAN WOODS Rep #:[id number] : 1935 88 From: Mio Benitez MD PCP: Dr. Kodak Harding MD Status:ADM IN Location: ICU ICU05-1 HPI - General General Date of Admission: 06/11/24 Date of Service: 06/11/24 Chief Complaint: Altered mental status [facility] Narrative ESTEBAN WOODS, is a 88 F [...] and initial NIH score the hospital set tin was 0. Patient is a poor historian. [...] parietal meningioma reported for which neurosurgery at [facility] Was consulted by ER physician and felt [...] treatment of urinary tract infection with sepsis [facility] Medical History (Updated 06/11/24 @ 22:39 [...] % (Auto) 69.7, Lymph % (Auto) 21.4, [place]% (Auto) 7.0, Eos % (Auto) 0.8, Baso [...] Clarity Cloudy, Urine pH 6.5, Ur Specific [place] 1.015, Urine Protein 100 H, Urine Glucose [...] as above Charges/Coding Visit Charges Inpatient E&M: 39592 Init Hosp L2 06/11/24 2244 Cosigner Signature (if applicable): CC: Dr. Mio Benitez MD; Dr. Kodak Harding MD~ Signed [facility]03-03-2025 [facility] Medical Records Department [address] [place] [address] History Physical Exam 06/11/242228 MR#: [id number] Acct: [id number] Name: ESTEBAN WOODS Rep #: [id number] : 1935 88 From: Mio Benitez MD PCP: Dr. Kodak Harding MD Status:ADM IN Location: ICU ICU05-1 [facility] Date of Admission: 06/11/24 Date of Service: [...] parietal meningioma reported for which neurosurgery at [facility] Was consulted by ER physician and felt [...] treatment of urinary tract infection with sepsis [facility] Medical History (Updated 06/11/24 @ 22:39 [...] % (Auto) 69.7, Lymph % (Auto) 21.4, Harnett % (Auto) 7.0, Eos % (Auto) 0.8, Baso % (Auto) 0.6, Absolute Neuts (auto) 10.2 H, Absolute Lymphs (auto) 3.12, Nucleated RBC % 0, Sodium 133, Potassium 3.9, C hloride 95 L, Carbon Dioxide 22.6, Anion Gap 15, BUN 23 H, Creatinine 1.00, Est GFR (MDRD) Non-Af (more content not included)...[facility] 06-11-2024 Radiology Diagnostic study note [facility] [address] [place] [address] Chest 1 View (Portable) MR#: [id number] Acct: [id number] Name: ESTEBAN WOODS Rep #: [id number] : 1935 F 88 From: Luly Blackwood MD PCP: Dr. Kodak Harding MD Status: PRE ER Study:Chest 1 View (Portable) Date of Exam: 06/11/24 Exam# [id number] Ordering Dr: Tom Liu DO PROCEDURE: CHEST [...] Harding MD; Dr. Bob Liu DO ~ Rail Project Engineer: Signed [facility]03-03-2025 Radiology Diagnostic study note [facility] [address] [place] [address] Brain/Head without Contrast MR#: [id number] Acct: [id number] Name: ESTEBAN WOODS Rep #: [id number] : 1935 F 88 From: Luly Blackwood MD PCP: Dr. Kodak Harding MD Status: PRE ER Study:Brain/Head without Contrast Date of Exa m: 06/11/24 Exam# [id number] Ordering Dr: Tom Liu DO EXAM: BRAIN/HEAD [...] Kodak Harding MD; Dr. Bob Noe, DO ~ Rail Project Engineer: Signed [facility]12-09-2024 NoteHNO ID: [id number] Author: KODAK HARDING MD Service: ? Author [...] Take 81 mg by mouth once daily. ul-uj-VR-vit Z-rxfjo-gga-coQ10 (DAILY MULTIVITAMIN) 200-100-500 mcg cap Take 1 [...] MD March 19, 2024 March 19, 2024[facility]12-09-[facility] History of Present illness Narrative* Kodak Harding [...] Take 81 mg by mouth once daily. ql-gv-OV-vit G-zhbdf-urf-coQ10 (DAILY MULTIVITAMIN) 200-100-500 mcg cap Take 1 [...] 19, 2024 1:52 PM documented in this encounterMount [facility]24 NoteHNO ID: [id number] Author: GIBRAN LESTER LPN Service: ? Author Type: LICENSED NURSE Type: Progress Notes Filed: 03/19/2024 14:35 Note Text: Patient is in office for 6 month exam. Would like to discuss being more fatigued then normal. Would like paper copy of refill medications. Gibran Lester LPN March 19, 2024 1:52 [facility] Telephone encounter Note * Telephone Encounter - Althea Bernard LPN - 03/05/2024 9:12 AM EST Pharmacy faxed request for the following refill(s): GIA MADDEN 09/26/23 NOV 03/19/24 Requested Prescriptions Pending Prescriptions Disp Refills [...] Bernard LPN March 05, 2024 9:15 AM [facility]11-25-[facility] Miscellaneous Notes* Telephone Encounter - Althea Bernard LPN - 03/05/2024 9:12 AM EST Pharmacy faxed request for the following refill(s): GIA MADDEN 09/26/23 NOV 03/19/24 Requested Prescriptions Pending Prescriptions Disp Refills [...] 05, 2024 9:15 AM documented in this encounterMount Carmel [facility] System06-17-2024 Instructions* Patient Instructions* Kodak Harding MD - 09/26/2023 1:43 PM EDT Screening schedule The following prevention plan is recommended: DTaP,Tdap,Td Vaccine(1 - Tdap) Never done Shingrix Vaccine(1 of 2) Never done RSV Vaccine(1 - 1-dose 60+ series) Never done Bone Density Screening Never done Pneumococcal Vaccine: 65+(1 of 1 - PCV) Never done Covid-19 Vaccine( season) due on 12/10/2022 Advance Directive Discussion [...] review all the medicines you take, even cwqb-ktx-pjltrxk medicines. As you get older, the way [...] have certain medical conditions. documented in this encounterMount Carmel [facility] System06-17-2024 History of Present illness Narrative* Kodak Harding MD - 09/26/2023 1:35 PM EDT Images from the original note were not included. Subjective Esteban Wodos is a 88 year old female. Esteban [...] Take 81 mg by mouth once daily. rr-io-OE-vit A-wfyjz-veb-coQ10 (DAILY MULTIVITAMIN) 200-100-500 mcg cap Take 1 [...] 26, 2023 1:11 PM documented in this encounterMount Carmel [facility] System12-13-2023 History of Present illness Narrative* Kodak Harding [...] Take 81 mg by mouth once daily. th-el-DZ-vit T-rshao-taa-coQ10 (DAILY MULTIVITAMIN) 200-100-500 mcg cap Take 1 [...] 23, 2023 1:03 PM documented in this encounterMount Carmel Health System06-27-2023 Miscellaneous Notes* Telephone Encounter - Farida Stevens - 10/05/2022 11:08 AM EDT Population Health informed office that the following orders need generated for the care gaps to close for the year. -Need order for bone density testing. Need documentation that vaccines were discussed risks vs benefits. documented in this encounterMount Carmel [facility] System12-12-2022 History of Present illness Narrative* Kodak Harding MD - 03/22/2022 1:32 PM EST This note was created using [employer]. Subjective Erin Woods is a 86 year [...] 22, 2022 1:23 PM [facility] [place] noteNo assessment information availableWAvita Health System Work Phone: Evaluation note* Diagnosis Paroxysmal atrial fibrillation (HCC)- Primary Atrial fibrillation Primary hypertension Unspecified essential hypertension Acquired hypothyroidism Unspecified hypothyroidism Osteoarthritis of knee, unspecified laterality, unspecified osteoarthritis type documented in this encounter [facility] note* Diagnosis Paroxysmal atrial fibrillation (HCC)- Primary Atrial fibrillation Hypertension, essential Unspecified essential hypertension Acquired hypothyroidism Unspecified hypothyroidism Osteoarthritis of knee, unspecified laterality, unspecified osteoarthritis type documented in this encounter [facility] note* Diagnosis Wellness examination- Primary Advanced directives, [...] health care facility documented in this encounter [facility] note* Diagnosis Hypertension, essential- Primary Unspecified essential hypertension Paroxysmal atrial fibrillation (HCC) Atrial fibrillation documented in this encounter [facility] note* Diagnosis Persistent atrial fibrillation (HCC)- Primary Atrial fibrillation Hypertension, essential Unspecified essential hypertension Sepsis, due to unspecified organism, unspecified whether acute organ dysfunction present (HCC) Acute respiratory failure with hypoxia (HCC) Acute respiratory failure Acute lower UTI Urinary tract infection, site not specified Acute heart failure with mildly reduced ejection fraction (HFmrEF, 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) longterm current use of anticoagulant therapy Long-term (current) use of anticoagulants [facility]* Diagnosis Paroxysmal atrial fibrillation (HCC)- Primary Atrial fibrillation Hypertension, essential Unspecified essential hypertension Acquired hypothyroidism Unspecified hypothyroidism Mixed hyperlipidemia longterm (current) use of anticoagulants Long-term (current) use of anticoagulants [facility]* Diagnosis Encounter for counseling regarding advance directives- Primary Screening for depression Encounter for screening examination for other mental health and behavioral disorders Generalized weakness Other malaise and fatigue Acquired hypothyroidism Unspecified hypothyroidism Mixed hyperlipidemia Hypertension, essential Unspecified essential hypertension 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 Long-term (current) use of anticoagulants Persistent atrial fibrillation (HCC) Atrial fibrillation Screening for deficiency anemia Screening for other and unspecified deficiency anemia Primary osteoarthritis involving multiple joints Medicare annual wellness visit, subsequent Routine general medical examination at a health care facility documented in this encounter [facility]* Diagnosis Onset Date Resolution Status Admit Date Abnormal CXR acute November 05, 10:58am QUACH (dyspnea on exertion) acute November 05, 2024 10:58am [facility] Work Phone: Evaluation note* Diagnosis QUACH (dyspnea on exertion)- Primary Other dyspnea and respiratory abnormality [facility] Discharge instructionsAdditional Instructions Antibiotics as directed. Return with fever, increased redness of right lower extremity, new or worsening symptoms. Follow-up with pulmonology as soon as possible.[facility] Work Phone: Reason for referral (narrative)No reason for referral information availableWAvita Health System Work Phone: Summary Purpose Family History No Family History Records Found Relationship Condition Age at Onset Recorded Date/T [place] mother Diabetes mellitus Unknown sister Diabetes mellitus Unknown brother Malignant neoplasm Unknown Cardiac disease Unknown Advance Directives No Advanced Directives Records Found Advance Directive Response Recorded Date/ Time Living Will Yes June 11, 2024 11:00pm Power of Junior Project Manager Yes June 11 11:00pm Name of Medical Power of Junior Project Manager Benjamín - son June 11, 2024 11:00pm Advance Directive Response Recorded Date/ Time Do you have a Healthcare Power of Junior Project Manager? No October 22, 2024 4:12pm Chief Complaint [...] pm Hospital November 05, 2024 10:5 8am Reason for Visit Admit Date Abnormal CXR November 05, 2024 10:5 8am QUACH (dyspnea on exertion) November 05 10:58am Chief Complaint Admit Date SOB, Edema October 22, 2024 2:53 pm Hospital November 05, 2024 10:5 8am E ORDER November 05, 2024 1:06 pm R06.09 - Other forms of dyspnea November 092024 9:18am Chief Complaint Admit Date SOB, Edema October 22, 2024 2:53 pm Hospital November 05, 2024 10:5 8am E ORDER November 05, 2024 1:06 pm R06.09 - Other forms of dyspnea November 092024 9:18am 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 November 13, 2024 4 :00am QUACH November 21, 2024 3: 41pm [facility] November 23, 2024 1: 48pm Chief Complaint Admit Date SOB, Edema October 22, 2024 2:53 pm Hospital FU November 05, 2024 10:5 8am E ORDER November 05, 2024 1:06 pm R06.09 - Other forms of dyspnea November 092024 9:18am 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 November 13, 2024 4 :00am QUACH November 21, 2024 3: 41pm QUACH November 23, 2024 1: 48pm 1 M FU December 05, 2024 8: 41am Reason for Visit Admit Date Abnormal CXR November 05, 2024 10:5 8am QUACH (dyspnea on exertion) November 05 10:58am Pulmonary hypertension December 05, 2024 8:41am Additional Source Comments INFORMATION SOURCE (unrecogn ized section and content) DATE CREATED AUTHOR 03/22/2018 [facility] [facility] [place] DATE CREATED AUTHOR AUTHOR'S ORGANIZ ATION 10/02/2024 [facility] DATE CREATED AUTHOR AUTHOR'S ORGANIZ ATION 11/10/2024 [facility] DATE CREATED AUTHOR AUTHOR'S ORGANIZ ATION 12/23/2024 [facility] Goals (unrecognized section and content) Goals may [...] or prosecute any alcohol or drug abuse patient.[facility] SystemIn the event this information is protected by the Federal Confidentiality of Alcohol and Drug Abuse Patient Records regulations: The Federal rules restrict any use of the information to criminally investigate or prosecute any alcohol or drug abuse patient.[facility] SystemIn the event this information is protected by the Federal Confidentiality of Alcohol and Drug Abuse Patient Records regulations: The Federal rules restrict any use of the information to criminally investigate or prosecute any alcohol or drug abuse patient.[facility] SystemIn the event this information is protected by the Federal Confidentiality of Alcohol and Drug Abuse Patient Records regulations: The Federal rules restrict any use of the information to criminally investigate or prosecute any alcohol or drug abuse patient.[facility] SystemIn the event this information is protected by the Federal Confidentiality of Alcohol and Drug Abuse Patient Records regulations: The Federal rules restrict any use of the information to criminally investigate or prosecute any alcohol or drug abuse patient.[facility] SystemIn the event this information is protected by the Federal Confidentiality of Alcohol and Drug Abuse Patient Records regulations: The Federal rules restrict any use of the information to criminally investigate or prosecute any alcohol or drug abuse patient.[facility] SystemIn the event this information is protected by the Federal Confidentiality of Alcohol and Drug Abuse Patient Records regulations: The Federal rules restrict any use of the information to criminally investigate or prosecute any alcohol or drug abuse patient.[facility] SystemIn the event this information is protected by the Federal Confidentiality of Alcohol and Drug Abuse Patient Records regulations: The Federal rules restrict any use of the information to criminally investigate or prosecute any alcohol or drug abuse patient.[facility] SystemIn the event this information is protected by the Federal Confidentiality of Alcohol and Drug Abuse Patient Records regulations: The Federal rules restrict any use of the information to criminally investigate or prosecute any alcohol or drug abuse patient.[facility] SystemIn the event this information is protected by the Federal Confidentiality of Alcohol and Drug Abuse Patient Records regulations: The Federal rules restrict any use of the information to criminally investigate or prosecute any alcohol or drug abuse patient.[facility] SystemIn the event this information is protected by the Federal Confidentiality of Alcohol and Drug Abuse Patient Records regulations: The Federal rules restrict any use of the information to criminally investigate or prosecute any alcohol or drug abuse patient.[facility] SystemIn the event this information is protected by the Federal Confidentiality of Alcohol and Drug Abuse Patient Records regulations: The Federal rules restrict any use of the information to criminally investigate or prosecute any alcohol or drug abuse patient.[facility] SystemIn the event this information is protected by the Federal Confidentiality of Alcohol and Drug Abuse Patient Records regulations: The Federal rules restrict any use of the information to criminally investigate or prosecute any alcohol or drug abuse patient.[facility] SystemIn the event this information is protected by the Federal Confidentiality of Alcohol and Drug Abuse Patient Records regulations: The Federal rules restrict any use of the information to criminally investigate or prosecute any alcohol or drug abuse patient.[facility] SystemIn the event this information is protected by the Federal Confidentiality of Alcohol and Drug Abuse Patient Records regulations: The Federal rules restrict any use of the information to criminally investigate or prosecute any alcohol or drug abuse patient.[facility] SystemIn the event this information is protected by the Federal Confidentiality of Alcohol and Drug Abuse Patient Records regulations: The Federal rules restrict any use of the information to criminally investigate or prosecute any alcohol or drug abuse patient.[facility] SystemIn the event this information is protected by the Federal Confidentiality of Alcohol and Drug Abuse Patient Records regulations: The Federal rules restrict any use of the information to criminally investigate or prosecute any alcohol or drug abuse patient.[facility] SystemIn the event this information is protected by the Federal Confidentiality of Alcohol and Drug Abuse Patient Records regulations: The Federal rules restrict any use of the information to criminally investigate or prosecute any alcohol or drug abuse patient.[facility] SystemIn the event this information is protected by the Federal Confidentiality of Alcohol and Drug Abuse Patient Records regulations: The Federal rules restrict any use of the information to criminally investigate or prosecute any alcohol or drug abuse patient.[facility] SystemIn the event this information is protected by the Federal Confidentiality of Alcohol and Drug Abuse Patient Records regulations: The Federal rules restrict any use of the information to criminally investigate or prosecute any alcohol or drug abuse patient.[facility] SystemIn the event this information is protected by the Federal Confidentiality of Alcohol and Drug Abuse Patient Records regulations: The Federal rules restrict any use of the information to criminally investigate or prosecute any alcohol or drug abuse patient.[facility] SystemIn the event this information is protected by the Federal Confidentiality of Alcohol and Drug Abuse Patient Records regulations: The Federal rules restrict any use of the information to criminally investigate or prosecute any alcohol or drug abuse patient.[facility] Reason for Visit (unrecogniz ed section and content) Reason Comments 6 Month Exam Reason Comments Population Health Navigation Outreach Reason Comments Medicare Wellness Exam Reason Comments Refill Request Reason Comments Transition Of Care Reason Comments Follow Up Reason Onset 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 Reason Comments Patient Update Reason Comments Orders Care Teams (unrecognized sec tion and content) Mortgage Loan Counselor Relationship Specialty Start Date End Date Kodak Harding MD [address] [place], [place] [address] PCP - General Family Medicine 04/15/22 Mortgage Loan Counselor Relationship Specialty Start Date End Date Kodak Harding MD [address] [place], [place] [id number] PCP - General Family Medicine 04/15/22 Mortgage Loan Counselor Relationship Specialty Start Date End Date Kodak Harding MD [address] [place], [place] [id number] [phone] PCP - General Family Medicine 04/15/22 Mortgage Loan Counselor Relationship Specialty Start Date End Date Kodak Harding MD [address] [place] [address] PCP - General Family Medicine 04/15/22 Mortgage Loan Counselor Relationship Specialty Start Date End Date Kodak Harding MD [address] [place] [address] PCP - General Family Medicine 04/15/22 Mortgage Loan Counselor Relationship Specialty Start Date End Date Kodak Harding MD [address] [place] [address] PCP - General Family Medicine 04/15/22 Mortgage Loan Counselor Relationship Specialty Start Date End Date Kodak Harding MD [address] [place] [address] PCP - General Family Medicine 04/15/22 Arcelia Schofield, vice president of instruction Systems Librarian 06/18/24 Mortgage Loan Counselor Relationship Specialty Start Date End Date Kodak Harding MD [address] [place] [address] PCP - General Family Medicine 04/15/22 Arcelia Schofield, vice president of instruction Systems Librarian 06/18/24 Mortgage Loan Counselor Relationship Specialty Start Date End Date Kodak Harding MD [address] [place] [address] PCP - General Family Medicine 04/15/22 Arcelia Schofield, vice president of instruction Systems Librarian 06/18/24 Mortgage Loan Counselor Relationship Specialty Start Date End Date Kodak Harding MD [address] [place] [address] PCP - General Family Medicine 04/15/22 Arcelia Schofield RN Primary Care Systems Librarian 06/18/24 07/05/24 Team Status: Active Member Role [...] Provider Active Start: June 15, 2024 Dr. Moi Benitez MD Admit Provider Active Star t: [...] Other Provider Active Start: June 15, 2024 Mortgage Loan Counselor Relationship Specialty Start Date End Date Kodak Harding MD [address] [place] [address] PCP - General Family Medicine 04/15/22 Mortgage Loan Counselor Relationship Specialty Start Date End Date Kodak Harding MD [address] [place] [address] PCP - General Family Medicine 04/15/22 Team [...] October 22, 2024 End: October 22, 2024 Mortgage Loan Counselor Relationship Specialty Start Date End Date Kodak Harding MD [address] [place] [address] PCP - General Family Medicine 04/15/22 Mortgage Loan Counselor Relationship Specialty Start Date End Date Kodak Harding MD [address] [place] [address] PCP - General Family Medicine 04/15/22 Mortgage Loan Counselor Relationship Specialty Start Date End Date Kodak Harding MD [address] [place] [address] PCP - General Family Medicine 04/15/22 Team Status: Inactive Member Role/Relationship Status [...] 2024 End: November 05, 2024 Dr. Tamir Cradoso , Attending Provider Active S tart: November 05, 2024 End: November 05, 2024 Mortgage Loan Counselor Relationship Specialty Start Date End Date Kodak Harding MD [address] [place] [address] PCP - General Family Medicine 04/15/22 Team [...] Active S tart: November 09, 2024 Dr. Tamir Cardoso DO Referring Provider Active S tart: November 09, 2024 Dr. Donovan Nice DO Primary Care Provider Active Start: November 09, 2024 Team Status: Inactive Member Role/Relationship Status Dates Dr. Tamir Cardoso DO Attending Provider Active S tart: November 09, 2024 End: November 09, 2024 Dr. Tamir Cardoso DO Referring Provider Active S tart: November 09, 2024 End: November 09, 2024 Dr. Donovan Nice DO Primary Care Provider Active Start: November 09, 2024 End: November 09, 2024 Team Status: Active Member Role/Relationship Status Dates Dr. Donovan Nice DO Primary Care Provider Active Start: November 13, 2024 Dr. Donovan TIERNEY MD Attending Provider Active Start: November 13, 2024 Team Status: Active Member Role/Relationship Status Dates Dr. Donovan Nice DO Primary Care Provider Active Start: November 13, 2024 Dr. Donovan TIERNEY MD Attending Provider Active Start: November 13, 2024 Dr. Donovan TIERNEY MD Referring Provider Active Start: November 13, 2024 Team Status: Inactive Member Role/Relationship Status Dates Dr. Tamir Cardoso DO Attending Provider Active S tart: November 21, 2024 End: November 21, 2024 Dr. Tamir Cardoso DO Referring Provider Active S tart: November 21, 2024 End: November 21, 2024 Dr. Donovan Nice DO Primary Care Provider Active Start: November 21, 2024 End: November 21, 2024 Team Status: Active Member Role/Relationship Status Dates Dr. Tamir Cardoso DO Attending Provider Active S tart: November 23, 2024 Dr. Tamir Cardoso DO Referring Provider Active S tart: November 23, 2024 Dr. Donovan Niec DO Primary Care Provider Active Start: November 23, 2024 Team Status: Active Member Role/Relationship Status Dates Dr. Donovan Nice DO Primary Care Provider Active Start: November 23, 2024 Dr. Evaristo Jain MD Attending Provider Active S tart: November 23, 2024 Team Status: Inactive Member Role/Relationship Status Dates Dr. Tamir Cardoso DO Attending Provider Active S tart: November 23, 2024 End: November 23, 2024 Dr. Tamir Cardoso DO Referring Provider Active S tart: November 23, 2024 End: November 23, 2024 Dr. Donovan Nice DO Primary Care Provider Active Start: November 23, 2024 End: November 23, 2024 Team Status: Inactive Member Role/Relationship Status Dates Dr. Kodak Harding MD Referring Provider Active Start: December 05, 2024 End: December 05, 2024 Edyta Drake PROFESSOR OF HISTORY, PROFESSOR OF HISTORY-C Attending Provider Active Start: December 05, 2024 End: December 05, 2024 Dr. Donovna Nice , DO Primary Care Provider Active Start: December 05, 2024 End: December 05, 2024 FOR RECORDS PERTAINING TO PATIENTS WHO [...] BE BASED ON THE PRIMARY CLINICAL RECORDS. [facility]. provides no warranty or guarantee of the accuracy or completeness of information in this document.
[2025-01-01 23:00] VITALS: BP 110/81; PULSE 91; RESP 14; O2SAT 95
--- NOTE | 2025-01-01 23:25 | EX.ED.DYSGE1 ---
HPI History of Present Illness Chief Complaint: Nosebleed Detail of Chief Complaint: Nosebleed right side Informant: patient Onset/Context/Timing Onset: Today and Hours Context: Sudden Onset Timing: Continuous Quality: Epistaxis Location: Right Current Severity: Mild Maximum Severity: Moderate Worsened by: Nasal prongs from continuous oxygen Relieved by: Nothing Associated Symptoms Associated Symptoms: No orthostatic symptoms, on anticoagulant (apixaban for atrial fibrillation Narrative Narrative: Patient is an 89-year-old woman. She presents from nursing facility. She developed spontaneous epistaxis right side. She has no history of nosebleed. She was wearing oxygen continuously for the past 24 hours. She started to have bleeding on the right side. She denies bruising easily. Denies bleeding of her gums. Denies blood in her urine. Denies black or maroon-colored stool. Denies chest discomfort or racing heart rate. Prior similar symptoms: No Recent Illness/Hospitalization: No PFSH [facility] Medical History Atrial fibrillation Hypothyroid Hypertension Home Medications ?Medication ?Instructions ?Recorded ?Last Taken ?Type losartan 100 1 tab PO QHS Blood Pressure 06/12/24 10/21/24 History mg-hydrochlorothiazide 25 mg tablet nebivolol 5 mg tablet (Bystolic) 5 mg PO DAILY blood pressure 06/12/24 10/21/24 History verapamil 360 mg 24 hr 360 mg PO DAILY blood pressure 06/12/24 10/22/24 History capsule,extended release apixaban 5 mg tablet (Eliquis) 5 mg PO BID #30 tabs 06/15/24 10/22/24 Rx furosemide 20 mg tablet 20 mg PO DAILY 10/22/24 10/22/24 History levothyroxine 125 mcg tablet 125 mcg PO DAILY 10/22/24 10/22/24 History (Euthyrox) ascorbic acid (vitamin C) 1,000 mg 1,000 mg PO QDAY 11/05/24 Unknown History capsule mecobalamin (vitamin B12) 2,500 mcg PO 11/05/24 Unknown History mcg chewable tablet multivitamin 1 tab PO QAM 11/05/24 Unknown History turmeric 400 mg capsule mg PO 11/05/24 Unknown History cephalexin 500 mg capsule 500 mg PO Q12 #10 CAPSULES 01/01/25 Unknown Rx Allergy/AdvReac Type Severity Reaction Status Date / Time No Known Allergies Allergy Verified 01/01/25 19:34 Family History Mother Diabetes Sister Diabetes Brother Cancer lung Heart disease Surgical History H/O removal of cyst Social History number of children: 8 Smoking Status: Never smoker alcohol intake: never substance use type: does not use diet: low salt caffeine: Yes seatbelt use: always ROS ROS ED Constitutional Constitutional ED: Denies chills, fever(s), subjective, sweats or weight loss Eyes Eyes: Denies blurry vision, change in vision or diplopia ENT ENT ED: Reports other Details: Epistaxis right no blood in the back of her throat ; Denies ear pain, rhinorrhea or sore throat Cardiovascular Cardiovascular: Denies chest pain or palpitations Respiratory/Chest Respiratory/Chest: Denies cough, dyspnea or dyspnea on exertion Gastrointestinal Gastrointestinal: Denies melena Genitourinary Genitourinary ED: Denies hematuria Hematologic/Lymphatic Hematologic/Lymphatic: Denies easy bleeding or easy bruising EXAM Physical Exam Const Vital Signs: 01/01/25 19:30 01/01/25 21:30 01/01/25 23:00 Temperature 98.2 F Temperature Source Oral Pulse Rate 97 89 91 Respiratory Rate 18 18 14 Blood Pressure 126/79 H 108/85 H 110/81 H Blood Pressure Mean 94 92 90 Pulse Ox 95 96 95 Oxygen Delivery Method Room Air Room Air Room Air Positive well nourished and well developed General Appearance ED: well developed and NAD; Negative for pallor HEENT Reports moist mucous membranes HEENT Narrative: Blood is noted right naris. There is active bleeding. The nasal septum is very irritated and oozing from all places. There is blood noted up near the inferior turbinate. There is no blood noted in the posterior pharynx. Eyes PERRL and EOMs intact bilaterally General Eye ED: Negative for pale conjunctiva or scleral icterus Resp normal respiratory effort and clear to auscultation bilaterally Cardio regular rate, S1 normal heart sound, S2 normal heart sound and no murmurs Rhythm: abnormal rhythm irregularly irregular Extremity normal to inspection General Extremety ED: Negative for edema or tenderness General Extremity: Negative for edema Neuro oriented x3 and CN's II-XII intact bilaterally Neuro Narrative: Patient is very hard of hearing. She states the school did not give her an opportunity to get her hearing aids. Because of this there is a problem with communication. Son arrived and was helpful. Psych Attitude: agitated Skin no rashes or lesions noted, no wounds and skin turgor normal General Skin Exam: elasticity normal; Negative for jaundice or pallor MDM MDM MDM Narrative Medical decision making narrative: Nose was anesthetized using Diane solution. Cotton ball was on wound. Saturated with Diane solution. This was placed right naris/vestibule. After 15 minutes it was removed. An anterior Rhino rocket was placed. There continued be oozing. Initially only put in 2.5 cc because patient complained of pain. Additional 2.5 cc of air was instilled. Bleeding stopped. Since she is on apixaban for atrial fibrillation we will have her hold this for the next 4 days. She will need to make an appointment to see Dr. rFaire in 3 to 5 days. Discharge Plan Triage Chief Complaint: Nosebleed ED Provider: Robbie Vanegas Dx/Rx/DC Orders Clinical Impression: Epistaxis, Anticoagulant long-term use, Atrial fibrillation, Pulmonary hypertension Instructions: ED Epistaxis (Adult) Prescriptions: New cephalexin 500 mg capsule 500 mg PO Q12 Qty: 10 0RF No Action multivitamin Tablet 1 tab PO QAM mecobalamin (vitamin B12) 2,500 mcg tablet,chewable PO ascorbic acid (vitamin C) 1,000 mg capsule 1,000 mg PO QDAY turmeric 400 mg capsule PO losartan-hydrochlorothiazide 100-25 mg tablet 1 tab PO QHS nebivolol [Bystolic] 5 mg tablet 5 mg PO DAILY verapamil 360 mg capsule,ext rel. pellets 24 hr 360 mg PO DAILY Eliquis 5 mg Tablet 5 mg PO BID Qty: 30 0RF levothyroxine [Euthyrox] 125 mcg tablet 125 mcg PO DAILY furosemide 20 mg Tablet 20 mg PO DAILY Primary Care Provider: Donovan Nice Referrals: Everett Contreras MD [Med Staff - Active Staff, Ear Nose Throat (ENT)] - 3-5 Days Donovan Nice DO [Primary Care Provider, Medical] Activity Restrictions/Additional Instructions: Stop apixaban, Eliquis 5 mg twice daily. Resume January 06 Print Language: Icelandic Disposition Disposition: Home, Self Care
[2025-01-01 23:37] VITALS: BP 110/81; PULSE 91; RESP 14; TEMP 37; O2SAT 95
== END 2025-01-02 00:44 | disposition skilled nursing facility (03) ==
PROVIDERS: Emergency Provider Emergency Medicine; Visit Provider Emergency Medicine
DX: R04.0 Epistaxis (principal); I27.20 Pulmonary hypertension, unspecified; I48.91 Unspecified atrial fibrillation; I10 Essential (primary) hypertension; Z79.01 Long term (current) use of anticoagulants; Z79.899 Other long term (current) drug therapy
CPT/HCPCS: 30903; 99282

== ENCOUNTER 2025-01-02 10:55 | Emergency (ER) | payer MEDICARE, SELFPAY ==
[2025-01-02 10:56] VITALS: BP 127/95; PULSE 92; RESP 20; TEMP 36.6; O2SAT 95
--- NOTE | 2025-01-02 13:17 | EX.ED.DYSGE1 ---
HPI History of Present Illness Chief Complaint: Nosebleed Informant: patient Onset/Context/Timing Onset: Yesterday Context: Gradual Onset Timing: Continuous Quality: Dark bleeding Location: Right nares Worsened by: Nothing Relieved by: Nothing Narrative Narrative: Patient presents requesting nasal packing removal. Patient was seen here last night. Patient had a 7.5 cm rapid Rhino placed in the right nares. Patient states she is having difficulty breathing due to this. Patient states she is on home oxygen and is unable to use that due to the nasal packing. Patient noted some bleeding whenever she dabs her right nares and packing. Patient denies any bleeding anteriorly or posteriorly. Patient denies any headaches. [facility] Medical History Atrial fibrillation Hypothyroid Hypertension Home Medications ?Medication ?Instructions ?Recorded ?Last Taken ?Type losartan 100 1 tab PO QHS Blood Pressure 06/12/24 10/21/24 History mg-hydrochlorothiazide 25 mg tablet nebivolol 5 mg tablet (Bystolic) 5 mg PO DAILY blood pressure 06/12/24 10/21/24 History verapamil 360 mg 24 hr 360 mg PO DAILY blood pressure 06/12/24 10/22/24 History capsule,extended release apixaban 5 mg tablet (Eliquis) 5 mg PO BID #30 tabs 06/15/24 10/22/24 Rx furosemide 20 mg tablet 20 mg PO DAILY 10/22/24 10/22/24 History levothyroxine 125 mcg tablet 125 mcg PO DAILY 10/22/24 10/22/24 History (Euthyrox) ascorbic acid (vitamin C) 1,000 mg 1,000 mg PO QDAY 11/05/24 Unknown History capsule mecobalamin (vitamin B12) 2,500 mcg PO 11/05/24 Unknown History mcg chewable tablet multivitamin 1 tab PO QAM 11/05/24 Unknown History turmeric 400 mg capsule mg PO 11/05/24 Unknown History cephalexin 500 mg capsule 500 mg PO Q12 #10 CAPSULES 01/01/25 Unknown Rx Allergy/AdvReac Type Severity Reaction Status Date / Time No Known Allergies Allergy Verified 01/02/25 10:58 Family History Mother Diabetes Sister Diabetes Brother Cancer lung Heart disease Surgical History H/O removal of cyst Social History number of children: 8 Smoking Status: Never smoker alcohol intake: never substance use type: does not use diet: low salt caffeine: Yes seatbelt use: always ROS ROS ED Constitutional Constitutional ED: Denies chills or fever(s) Eyes Eyes: Denies blurry vision or change in vision ENT ENT ED: Denies rhinorrhea or sore throat Cardiovascular Cardiovascular: Denies chest pain or palpitations Respiratory/Chest Respiratory/Chest: Denies cough or dyspnea Gastrointestinal Gastrointestinal: Denies nausea or vomiting Genitourinary Genitourinary ED: Denies dysuria or hematuria Musculoskeletal Musculoskeletal: Denies back pain or neck pain Integumentary Denies abscess or rash Neurologic Neurologic: Denies headache(s) or weakness Allergic/Immunologic Allergic/Immunologic ED: Denies mouth swelling or urticaria EXAM Physical Exam Const Vital Signs: 01/02/25 10:56 01/02/25 15:39 Temperature 97.8 F Temperature Source Oral Pulse Rate 92 Respiratory Rate 20 H 16 Blood Pressure 127/95 H Blood Pressure Mean 105 Pulse Ox 95 95 Oxygen Delivery Method Room Air Room Air Positive well nourished and well developed General Appearance ED: well developed and NAD HEENT Reports moist mucous membranes HEENT Narrative: There is a nasal packing in the right nares. There is no bleeding from the left nares. Neck supple and no JVD Neuro oriented x3, CN's II-XII intact bilaterally and no sensory deficits noted Sensorium / Orientation: alert Motor Exam: strength 5/5 throughout Psych mental status grossly normal MDM MDM MDM Narrative Medical decision making narrative: The balloon was deflated. The nasal packing was removed. There is no active bleeding noted. There is no septal deviation or septal hematoma noted. History & Record Review Additional record(s) reviewed:: Prior ED visit and Prior labs Treatment and Re-Evaluation :: There is recurrent bleeding from the right nares. Cottonball soaked with Diane solution were applied to the right nares. The bleeding appeared to slow down somewhat. Patient is refusing nasal packing. The right anterior nasal septum was cauterized with silver nitrate sticks. There is still persistent bleeding after silver nitrate. Thrombin spray was then applied to the right anterior nasal septum. There is still persistent bleeding after this. Patient was advised of need for repacking. Patient is agreeable with this. A 5.5 cm anterior nasal packing with airway was placed in the right nares. Patient tolerated the procedure well. Patient was instructed to follow-up with Dr. Contreras as scheduled. Patient understood and was agreeable with the plan. All questions were answered. Discharge Plan Triage Chief Complaint: Nosebleed ED Provider: Marek Otto Dx/Rx/DC Orders Clinical Impression: Epistaxis, Anticoagulant long-term use, Atrial fibrillation Instructions: ED Epistaxis (Adult) Prescriptions: No Action multivitamin Tablet 1 tab PO QAM mecobalamin (vitamin B12) 2,500 mcg tablet,chewable PO ascorbic acid (vitamin C) 1,000 mg capsule 1,000 mg PO QDAY turmeric 400 mg capsule PO losartan-hydrochlorothiazide 100-25 mg tablet 1 tab PO QHS nebivolol [Bystolic] 5 mg tablet 5 mg PO DAILY verapamil 360 mg capsule,ext rel. pellets 24 hr 360 mg PO DAILY Eliquis 5 mg Tablet 5 mg PO BID Qty: 30 0RF cephalexin 500 mg capsule 500 mg PO Q12 Qty: 10 0RF levothyroxine [Euthyrox] 125 mcg tablet 125 mcg PO DAILY furosemide 20 mg Tablet 20 mg PO DAILY Primary Care Provider: Donovan Nice Referrals: Everett Contreras MD [Med Staff - Active Staff, Ear Nose Throat (ENT)] - 3-5 Days Donovan Nice DO [Primary Care Provider, Medical] - 5-7 Days Print Language: Nepali Disposition Disposition: Home, Self Care
[2025-01-02 13:22] VITALS: BMI 29.8
[2025-01-02] MEDS: Mixture 30 ML Bottle TOPICAL (13:47)
[2025-01-02] MEDS: Silver Nitrate (BKC) 1 EACH TOPICAL (14:30)
[2025-01-02 15:39] VITALS: RESP 16; O2SAT 95
[2025-01-02] MEDS: Thrombin 5,000 IU Kit (PSA) 5,000 IU Vial 5000 IU TOPICAL (15:50)
[2025-01-02 17:39] VITALS: BP 142/95; PULSE 95; RESP 16; TEMP 36.6; O2SAT 95
== END 2025-01-02 17:39 | disposition home or self-care (01) ==
LOC: ED 13:26
PROVIDERS: Emergency Provider Emergency Medicine; Visit Provider Emergency Medicine
DX: R04.0 Epistaxis (principal); I48.91 Unspecified atrial fibrillation; I10 Essential (primary) hypertension; Z79.01 Long term (current) use of anticoagulants; Z79.899 Other long term (current) drug therapy
CPT/HCPCS: 30903; 99282

== ENCOUNTER → 2025-01-07 | Outpatient (CLI) | payer MEDICARE, SELFPAY ==
--- OUTSIDE RECORDS SUMMARY | 2024-10-01 08:23 | XMS RPT_ITS ---
Author Name Auto Generated Organization OHIP Care Team Providers Care Drier Transfer Car Operator Name Role Phone DARRIN HARDING Attending Unavailab le MEHDI, DARRIN SÁNCHEZ Primary Care Unavailab le MEHDI, DARRIN SÁNCHEZ Attending Unavailab le MEHDI, DARRIN SÁNCHEZ Primary Care Unavailab le MEHDI, DARRIN SÁNCHEZ Attending Unavailab le MEHDI, DARRIN SÁNCHEZ Primary Care Unavailab le MEHDI, DARRIN SÁNCHEZ Attending Unavailab le MEHDI, DARRIN SÁNCHEZ Primary Care Unavailab le MEHDI, DARRIN SÁNCHEZ Referring Unavailab le MEHDI, DARRIN SÁNCHEZ Primary Care Unavailab le PROBLEMS DATE TYPE CONDITION / CODE ATTENDING STATUS [facility] 07/30/2024 Active Mixed hyperlipid emia / E78.2(ICD-10) DARRIN HARDING [facility] 03/23/2023 Active Hypertension, es sential / I10(ICD-10) DARRIN HARDING [facility] 03/22/2022 Active Acquired hypothy roidism / E03.9(ICD-10) DARRIN HARDING [facility] 03/22/2022 Active Persistent atria l fibrillation (HCC) / I48.19(ICD-10) DARRIN HARDING [facility] 09/17/2024 Active Encounter for co unseling regarding advance directives / Z71.89(ICD-10) DARRIN HARDING [facility] 09/17/2024 Active Screening for de pression / Z13.31(ICD-10) MEHDI DARRIN [facility] 09/17/2024 Active Encounter for sc reening examination for other mental health and behavioral disorders / Z13.39(ICD-10) DARRIN HARDING [facility] 09/17/2024 Active Generalized weak ness / R53.1(ICD-10) DARRIN HARDING [facility] 09/17/2024 Active jail (curre nt) use of anticoagulants / Z79.01(ICD-10) DARRIN HARDING [facility] 09/17/2024 Active Screening for de ficiency anemia / Z13.0(ICD-10) ABDULAZIZ HARDINGMOND [facility] 03/19/2024 Active 6 Month Exam / UNK(Unknown) DARRIN HARDING [facility] PROCEDURES No Procedure Records Found RESULTS CNPN Observed: 11/07/2024 12:00 AM Status: COMPLETED Source: [facility] Telephone ([employer]) ESTEBAN WOODS ([id number]) 1935 F [facility] Date Time Provider Department 11/07/24 DARRIN HARDING [facility] During your visit today, we recorded the following information about you: Annette Nieves 11/07/2024 2:57 PM Signed Althea from [facility] left message on mosaic layer voicemail stating patient was admitted to their facility today and was informed by son that Dr. Harding changed recent medications, they would like a order list faxed to [phone] and contact them by phone if any questions at [phone] Kathy Bergeron LPN 11/08/2024 9:02 AM Signed Message left for admissions to phone office in regards to orders and H and P. Kathy Garrett LPN November 08, 2024 9:02 AM Kathy Garrett LPN 11/08/2024 9:50 AM Signed This nurse spoke to nurse at halfway. Orders verified, Dr. Nice has now taken over patients care Kathy Garrett LPN November 08, 2024 9:50 AM Allergies As of Date: 11/07/2024 Noted Allergy Reaction CIGARETTE SMOKE 09/03/2020 16 - Unknown Date Reviewed: 09/17/2024 Reviewed by: Kathy Garrett LPN - Fully Assessed Reason for Visit: Orders [681] Prescriptions as of 11/08/2024 - ELIQUIS 5 mg tab(s) Take 1 tablet by mouth two times a day. - nebivolol (BYSTOLIC) 5 mg tablet Take 1 tablet by mouth once daily. - furosemide (LASIX) 20 mg tablet Take 1 tablet by mouth once daily. - levothyroxine (SYNTHROID) 125 mcg tablet Take 1 tablet by mouth once daily. - losartan-hydroCHLOROthiazide (HYZAAR) 100-25 mg per tablet Take 1 tablet by mouth once daily. - verapamil SR (CALAN SR) 180 mg CR tablet Take 2 tablets by mouth daily at bedtime. - sd-qp-AC-vit D-rontl-iht-coQ10 (DAILY MULTIVITAMIN) 200-100-500 mcg cap Take 1 capsule by mouth once daily. Problem List As Of Date 11/07/2024 Noted Resolved Atrial fibrillation (HCC) [I48.91] 08/30/2019 Hypertension, essential [I10] 02/25/2017 Hypothyroidism [E03.9] 02/25/2017 Osteoarthritis of knee [M17.9] 09/01/2017 Hyperlipidemia, unspecified [E78.5] 09/26/2023 Intracranial meningioma (HCC) [D32.0] 06/15/2024 Encounter Status:Closed by MATI GARRETT LAUREN [facility]08[facility] Observed: 11/05/2024 12:00 AM Status: COMPLETED Source: [facility] Telephone ([employer]) ESTEBAN WOODS ([id number]) 1935 F [facility] Date Time Provider Department 11/05/24 DARRIN HARDINGBreezyAlon During your visit today, we recorded the following information about you: Annette Nieves 11/05/2024 9:53 AM Signed Patient's son Benjamín contacted the office requesting a phone call back regarding update on [facility]. Pt can be reached at [phone] Kathy Bergeron LPN 11/06/2024 10:15 AM Signed This nurse spoke to patients son. Son stated that due to lab work, Line O Scribe Operator Dr. Cardoso would like PCP to look over Diuretics. Patient is currently taking Lasix 20 mg every day, and also Losartan - Hydrochlorothiazide 100-25 mg daily. Kathy Garrett LPN November 06, 2024 10:15 AM Darrin Harding MD 11/06/2024 10:31 AM Signed Does patient have symptoms of fluid overload.? Does she have upcoming appointment with cardiology? Increase lasix to 40mg daily for 4 days if having sxs. Hold losartan/hctz.while on increased dose of lasix.recheck bnp in 6 days Kathy Garrett LPN 11/06/2024 11:16 AM Signed This nurse spoke with patients son. Son stated that patient is experiencing increased shortness of breath and bilateral lower extremity edema. This nurse informed of information of medication changes and upcoming lab orders. Son verbalized understanding, this nurse is to send order to [facility]. Additionally, patient does not currently see a Business Services Specialist Sales. Patient was evaluated and treated for shortness of breath at [facility] on 10-22-2024 Patient was seen in 2008 by Cardiology when diagnosed with A Fib, but did not want to go for the additional testing that they wanted her to receive. Patient does have additional testing scheduled, ordered by Line O Scribe Operator: Pulmonary Function Test November 09, 2024 CT Heart and Lungs November 21, 2024 Echocardiogram November 23, [address] Cardoso Line O Scribe Operator December 05, 2024 Patient is also moving into [facility] with [facility] [employer] [facility] [phone] tomorrow. Kathy Garrett LPN November 06, 2024 11:15 AM Allergies As of Date: 11/05/2024 Noted Allergy Reaction CIGARETTE SMOKE 09/03/2020 16 - Unknown Date Reviewed: 09/17/2024 Reviewed by: Kathy Garrett LPN - Fully Assessed Reason for Visit: Patient Update [1234] Primary Visit Diagnosis:QUACH (dyspnea on exertion) [R06.09] Order(s):NT PRO BNP [SQNTBNP] Order #: [id number] FUTURE Prescriptions as of 11/06/2024 - ELIQUIS 5 mg tab(s) Take 1 tablet by mouth two times a day. - nebivolol (BYSTOLIC) 5 mg tablet Take 1 tablet by mouth once daily. - furosemide (LASIX) 20 mg tablet Take 1 tablet by mouth once daily. - levothyroxine (SYNTHROID) 125 mcg tablet Take 1 tablet by mouth once daily. - losartan-hydroCHLOROthiazide (HYZAAR) 100-25 mg per tablet Take 1 tablet by mouth once daily. - verapamil SR (CALAN SR) 180 mg CR tablet Take 2 tablets by mouth daily at bedtime. - ur-ow-HY-vit U-aqtch-fev-coQ10 (DAILY MULTIVITAMIN) 200-100-500 mcg cap Take 1 capsule by mouth once daily. Problem List As Of Date 11/05/2024 Noted Resolved Atrial fibrillation (HCC) [I48.91] 08/30/2019 Hypertension, essential [I10] 02/25/2017 Hypothyroidism [E03.9] 02/25/2017 Osteoarthritis of knee [M17.9] 09/01/2017 Hyperlipidemia, unspecified [E78.5] 09/26/2023 Intracranial meningioma (HCC) [D32.0] 06/15/2024 Encounter Status:Closed by DARRIN HARDING on 11/06/24 PROGRESS Observed: 10/23/2024 2:31 PM Status: COMPLETED Source: [facility] HNO ID: [id number] Author: HARDIK WEBER, MERY Service: ? Author Type: Registered Nurse Type: Progress Notes Filed: 10/23/2024 15:07 Note Text: [facility] Chart Review Provider Action/FYI Patient identified by name and date of :YES Patient identified for Care Coordination from: Notify ED Discharge report Was patient contacted?: Yes, but unable to make contact and unable to leave a voicemail Patient discharged from [facility] on 10/22/24 ED Provider Discharge summary: Discharge Plan Triage Chief Complaint: Shortness of Breath Other Complaint: Edema ED Provider: Jeyson Mayer Dx/Rx/DC Orders Clinical Impression: Pulmonary fibrosis, SOB (shortness of breath), Cellulitis of right lower extremity, Peripheral edema Instructions: Pulmonary Fibrosis, ED Cellulitis, ED Peripheral Edema, Bilateral Prescriptions: New amoxicillin-pot clavulanate 875-125 mg tablet 875 mg PO Q12H 7 Day Outreach Plan:Follow up call needed:Yes Hardik Weber RN CNPTOUTREACH Observed: 10/23/2024 12:00 AM Status: COMPLETED Source: [facility] Patient Outreach ([employer]) ESTEBAN WOODS ([id number]) 1935 F [facility] Date Time Provider Department 10/23/24 HARDIK WEBER [facility] During your visit today, we recorded the following information about you: Hardik Weber RN 10/23/2024 3:07 PM Signed [facility] Chart Review Provider Action/ Patient identified by name and date of :YES Patient identified for Care Coordination from: Notify ED Discharge report Was patient contacted?: Yes, but unable to make contact and unable to leave a voicemail Patient discharged from [facility] on 10/22/24 ED Provider Discharge summary: Discharge Plan Triage Chief Complaint: Shortness of Breath Other Complaint: Edema ED Provider: Jeyson Mayer Dx/Rx/DC Orders Clinical Impression: Pulmonary fibrosis, SOB (shortness of breath), Cellulitis of right lower extremity, Peripheral edema Instructions: Pulmonary Fibrosis, ED Cellulitis, ED Peripheral Edema, Bilateral Prescriptions: New amoxicillin-pot clavulanate 875-125 mg tablet 875 mg PO Q12H 7 Day Outreach Plan:Follow up call needed:Yes Hardik Weber RN Allergies As of Date: 10/23/2024 Noted Allergy Reaction CIGARETTE SMOKE 09/03/2020 16 - Unknown Date Reviewed: 09/17/2024 Reviewed by: Kathy Garrett LPN - Fully Assessed Reason for Visit: Organ Assembler Ed Follow Up [9282] Prescriptions as of 10/23/2024 - nebivolol (BYSTOLIC) 5 mg tablet Take 1 tablet by mouth once daily. - ELIQUIS 5 mg tab(s) Take 1 tablet by mouth two times a day. - furosemide (LASIX) 20 mg tablet Take 1 tablet by mouth once daily. - levothyroxine (SYNTHROID) 125 mcg tablet Take 1 tablet by mouth once daily. - losartan-hydroCHLOROthiazide (HYZAAR) 100-25 mg per tablet Take 1 tablet by mouth once daily. - verapamil SR (CALAN SR) 180 mg CR tablet Take 2 tablets by mouth daily at bedtime. - pw-xe-CV-vit Z-yuxzn-ocu-coQ10 (DAILY MULTIVITAMIN) 200-100-500 mcg cap Take 1 capsule by mouth once daily. Problem List As Of Date 10/23/2024 Noted Resolved Atrial fibrillation (HCC) [I48.91] 08/30/2019 Hypertension, essential [I10] 02/25/2017 Hypothyroidism [E03.9] 02/25/2017 Osteoarthritis of knee [M17.9] 09/01/2017 Hyperlipidemia, unspecified [E78.5] 09/26/2023 Intracranial meningioma (HCC) [D32.0] 06/15/2024 Encounter Status:Closed by HARDIK WEBER on 10/23/24 TSH SERPL-ACNC Collected: 8:35 AM Status: F Source: [facility] Comment: Specimen Type : BLOOD SPECIMEN Ordering Facility: [facility] Address: [address] [place] [address] TYPE CODE TESTS RESULT OUT OF RANGE REFERENCE UNITS LAB 3016-3([facility]) TSH SerPl-aCnc 3.210 0.270-4.200 mIU/L Performed By: #### 3016-3 ## ## [facility] CLIA [id number] [address] [place] [address] [place] DEEP COMP METAB 2000 PNL SERPL Collected: 8:35 AM Status: F Source: [facility] Comment: Specimen Type : BLOOD SPECIMEN Ordering Facility: [facility] Address: [address] [place] [address] TYPE CODE TESTS RESULT OUT OF RANGE REFERENCE UNITS LAB 2885-2(LOINC) Prot SerPl-mCnc 7.1 6.3-8.0 g/dL LAB 1751-7(LOINC) Albumin SerPl-mCnc 3.5 Low 3.9-4.9 g/dL LAB 99113-2(LOINC) Calcium SerPl-mCnc 10.2 8.5-10.2 mg/dL LAB 1975-2(LOINC) Bilirub SerPl-mCnc 1.5 High 0.2-1.3 mg/dL LAB 6768-6(LOINC) ALP SerPl-cCnc 75 34-123 U/L LAB 1920-8(LOINC) AST SerPl-cCnc Result Comment: Unable to as say. Specimen significantly hemolyzed. LAB 1742-6(LOINC) ALT SerPl-cCnc 27 7-38 U/L LAB 2345-7(LOINC) Glucose SerPl-mCnc 103 High 74-99 mg/dL Result Comment: The [place] Diabetes [employer] (ADA) provides guidance for cutoff values for fasting glucose and random glucose. The ADA defines fasting as no caloric intake for at least 8 hours. Fasting plasma glucose results between 100 to 125 mg/dL indicate increased risk for diabetes (prediabetes). Fasting plasma glucose results greater than or equal to 126 mg/dL meet the criteria for diagnosis of diabetes. In the absence of unequivocal hyperglycemia, results should be confirmed by repeat testing. In a patient with classic symptoms of hyperglycemia or hyperglycemic crisis, random plasma glucose results greater than or equal to 200 mg/dL meet the criteria for diagnosis of diabetes. Reference: Standards of Medical Care in Diabetes 2016, [place] [employer]. Diabetes Care. 2016.39(Suppl 1). LAB 3094-0(LOINC) BUN SerPl-mCnc 25 High 7-21 mg/ dL LAB 2160-0(LOINC) Creat SerPl-mCnc 0.83 0.58-0.96 mg/dL LAB 2951-2(LOINC) Sodium SerPl-sCnc 132 Low 136-144 mmol/L LAB 2823-3(LOINC) Potassium SerPl-sCnc 4.1 3.7-5.1 mmol/L LAB 2075-0(LOINC) Chloride SerPl-sCnc 98 98-107 mmol/L LAB 2027-9(LOINC) CO2 SerPl-sCnc 21 Low 22-30 mmo l/L LAB 31626-0(LOINC) Anion Gap SerPl-sCnc 13 8-15 mmol/L LAB 96395-4(LOINC) Creatinine + eGFR Pnl SerPlBld 67 >=60 mL/min/1 .73m??? Result Comment: Estimated Gl omerular Filtration Rate (eGFR) is calculated using the 2020 CKD-EPI creatinine equation. This equation utilizes serum creatinine, sex, and age as parameters. The creatinine assay has traceable calibration to isotope dilution-mass spectrometry. Refer to KDIGO guidelines for clinical interpretation. In patients with unstable renal function, e.g. those with acute kidney injury, the eGFR may not accurately reflect actual GFR. Performed By: #### [id number] # ### [facility] CLIA [id number] [address] [place] [address] STATES OF [facility] CBC W AUTO DIFF BLD Collected: 10/01/2024 8:[address] atus: F Source: [facility] Order Comment: Specimen Type : BLOOD SPECIMEN Ordering Facility: [facility] Address: [address] [place] [address] TYPE CODE TESTS RESULT OUT OF RANGE REFERENCE UNITS LAB 6690-2(LOINC) WBC # Bld Auto 9.76 3.70-11.00 k/uL LAB 789-8(LOINC) RBC # Bld Auto 3.84 Low 3.90-5.20 m/ uL LAB 718-7(LOINC) Hgb Bld-mCnc 12.7 11.5-15.5 g/dL LAB 4544-3(LOINC) Hct VFr Bld Auto 38.1 36.0-46.0 % LAB 787-2(LOINC) MCV RBC Auto 99.2 80.0-100.0 fL LAB 785-6(LOINC) MCH RBC Qn Auto 33.1 26.0-34.0 p g LAB 786-4(LOINC) MCHC RBC Auto-mCnc 33.3 30.5-36.0 g/dL LAB 54767-6(LOINC) RDW RBC-Rto 14.4 11.5-15.0 % LAB 777-3(LOINC) Platelet # Bld Auto 215 150-400 k/uL LAB 14022-5([facility]) PMV Bld Auto 8.5 Low 9.0-12.7 fL LAB 770-8(INC) Neutrophils/leuk NFr Bld Auto 75.9 % LAB 751-8(INC) Neutrophils # Bld Auto 7.41 1.45-7.50 k/uL LAB 736-9([facility]) Lymphocytes/leuk NFr Bld Auto 14.7 % LAB 731-0([facility]) Lymphocytes # Bld Auto 1.43 1.00-4.00 k/uL LAB 5905-5([facility]) Monocytes/leuk NFr Bld Auto 7.3 % LAB 742-7([facility]) Monocytes # Bld Auto 0.71 <0.87 k/uL LAB 713-8([facility]) Eosinophil/leuk NFr Bld Auto 0.9 % LAB 711-2([facility]) Eosinophil # Bld Auto 0.09 <0.46 k/uL LAB 706-2([facility]) Basophils/leuk NFr Bld Auto 0.5 % LAB 704-7([facility]) Basophils # Bld Auto 0.05 <0.11 k/uL LAB 69988-0([facility]) Imm Granulocytes/[place] k NFr Bld Auto 0.7 % LAB 40733-2([facility]) Imm Granulocytes # Bld Auto 0.07 <0.10 k/uL LAB 06037-1([facility]) nRBC/100 WBC Bld-Rto 0.0 /100 WBC LAB 771-6([facility]) nRBC # Bld Auto <0.01 <0.01 k/u L LAB 90391-0([facility]) Differential method Bld Auto Performed By: #### 56845-2 # ### [facility] CLIA [id number] [address] [place] [address] STATES OF [facility] PROGRESS Observed: 09/17/2024 2:10 PM Status: COMPLETED Source: [facility] HNO ID: [id number] Author: DARRIN HARDING MD Service: ? Author Type: Physician Type: Progress Notes Filed: 09/17/2024 14:13 Note Text: Khai Woods is an 89-year-old female Presents today for her Medicare wellness visit. Additionally she follows up for multiple medical problems. See list. Her chronic medical problems been stable. Additionally she presents with a history of arthritis, presenting for evaluation of joint pain. Arthritis: - Chronic joint pain, inadequately managed with Tylenol 500 mg, 4-6 tablets/day. - Tried Aspercreme with partial relief. - Inquiring about more effective pain management options. Dyspnea: - Occasional dyspnea with exertion, particularly when moving around and getting ready. - Able to walk around the house using a rollator. Atrial Fibrillation: - Denies palpitations or chest pain. - Taking Eliquis. Review of Systems GENERAL: No weight loss, malaise or fevers. HEENT: Negative for frequent or significant headaches, no changes in vision or hearing, no nose bleeds or other nasal problems NECK: Negative for lumps, goiter, pain and significant neck swelling RESPIRATORY: Positive for shortness of breath with exertion, negative for cough CARDIOVASCULAR: Negative for chest pain, leg swelling, CHF or palpitations GI: No nausea, vomiting, diarrhea, heartburn, abdominal pain, blood in stool or black stool GENITOURINARY: No history of dysuria, frequency or incontinence MUSCULOSKELETAL: Positive for joint pain, negative for swelling or muscle pain, no back pain SKIN: Negative for lesions, rash and itching PSYCH: Negative for anxiety or depression HEMATOLOGY/LYMPHOLOGY: No bleeding concerns NEURO: No history of headaches, syncope, paralysis, seizures or tremors ENDOCRINE: No history of polydipsia, increased thirst or other endocrine symptoms. History reviewed. No pertinent surgical history. PAST MEDICAL HISTORY Diagnosis Date Atrial fibrillation (HCC) 08/30/2019 Hypertension 02/25/2017 Hypothyroidism 02/25/2017 Osteoarthritis of knee 09/01/2017 History reviewed. No pertinent family history. Social History Tobacco Use Smoking status: Never Smokeless tobacco: Never Vaping Use Vaping status: Never Used Substance Use Topics Alcohol use: Never Drug use: Never ALLERGIES Allergen Reactions Cigarette Smoke Unknown MEDICATIONS: nebivolol (BYSTOLIC) 5 mg tablet Take 1 tablet by mouth once daily. ELIQUIS 5 mg tab(s) Take 1 tablet by mouth two times a day. furosemide (LASIX) 20 mg tablet Take 1 tablet by mouth once daily. (Patient taking differently: Take 20 mg by mouth once daily. Patient is taking as needed) levothyroxine (SYNTHROID) 125 mcg tablet Take 1 tablet by mouth once daily. losartan-hydroCHLOROthiazide (HYZAAR) 100-25 mg per tablet Take 1 tablet by mouth once daily. verapamil SR (CALAN SR) 180 mg CR tablet Take 2 tablets by mouth daily at bedtime. sc-tw-IY-vit K-rzcqh-mnk-coQ10 (DAILY MULTIVITAMIN) 200-100-500 mcg cap Take 1 capsule by mouth once daily. Allergies, past surgical history, family history and past medical history were reviewed per this encounter. Medications were reviewed and verified. 07/30/2024 09/17/2024 INTAKE PAIN ASSESSMENT Are you having pain associated with your visit today? No No If pain assessment is 0, no action needed. If pain assessment is positive, please see assessment and plain. Objective Labs: Tests: (Today) Clock-drawing test: Normal result Imaging: BP 118/76 (BP Site: Left Arm, BP Position: Sitting, BP Cuff Size: Regular Adult) Pulse 90 Temp 36.1 ?C (96.9 ?F) (Temporal) Resp 18 Ht 157.5 cm (5' 2") Wt 68.5 kg (151 lb) SpO2 94% BMI 27.62 kg/m? Physical Exam GENERAL: NAD, alert and oriented. SKIN: Unremarkable, no rash or skin lesions. HEAD: Normocephalic. EYES: PERRLA, EOMI, conjunctiva clear. EARS: External ears normal, canals clear, TM's normal. NOSE/SINUSES: Nares normal. Septum midline. OROPHARYNX: Lips, mucosa, and tongue normal, good dentition. No oral lesions noted. NECK: Supple, no lymphadenopathy, normal thyroid, no carotid bruits. LUNGS: Clear to auscultation bilaterally, no wheezes/rhonchi/rales. HEART: Regular rate and rhythm, no murmurs. No ectopy. EXTREMITIES: Normal, no deformities, no skin discoloration, no edema. NEURO: Awake, alert and oriented x3, cranial nerves II-XII grossly intact, normal gait, no involuntary motions. Procedures Assessment and Plan 1. Encounter for counseling regarding advance directives (Z71.89) 2. Screening for depression (Z13.31) 3. Encounter for screening examination for other mental health and behavioral disorders (Z13.39) 4. Generalized weakness (R53.1) - wheelchair prescription. A manual wheelchair is needed within the home to accomplish ADL's. For patient to get to the bathroom, kitchen, etc. Use of a cane or walker is not recommended due to good balance and a history of falling. Patient has good vision and good cognition to operate a manual wheelchair.Additional features patient would need is leg rests. The progression of her condition relatively nonprogressive. Patient has a Son who is lives/assists patient, and is able to help patient with ambulation. The patient would benefit from a manual wheelchair. ave any questions or concerns. 5. Acquired hypothyroidism (E03.9) - Last lab work was almost a year ago. - Ordered lab work; patient instructed to be fasting. 6. Mixed hyperlipidemia (E78.2) - Last lab work was almost a year ago. - Ordered lab work; patient instructed to be fasting. 7. Hypertension, essential (I10) - Blood pressure is well-controlled. 8. jail (current) use of anticoagulants (Z79.01) - Continue Eliquis 9. Persistent atrial fibrillation (HCC) (I48.19) - No episodes of palpitations or chest pain reported. - irregularly irregular rhythm on examination. 10. Screening for deficiency anemia (Z13.0) - Last lab work was almost a year ago. 11. Primary osteoarthritis involving multiple joints (M15.0) - Pain not adequately controlled with current Tylenol regimen (4-6 tablets/day). - Advised use of Voltaren gel (diclofenac) topically 3 times daily. - Discussed that NSAIDs are contraindicated due to anticoagulant therapy. - Avoid narcotic analgesics. Darrin Harding MD 09/17/2024 Recording using [employer] software for draft documentation of the visit was discussed with the patient/authorized guest experience representative; all questions welcomed and answered. Patient/authorized guest experience representative agreed to proceed Medicare Health Risk Assessment General Health Fair Exercise: Minutes/Day 30 min Exercise: Days/Week 3 days Alcohol: Daily Use Never Alcohol: Drinks/Day Patient does not drink Alcohol: 6 or more drinks Never Feel off balance No Concerns: Teeth/Dentures No Concerns: Sexual function No Troubled by feelings None of the above Frequency: Eating healthy diet Nearly every day ADLs requiring help Grocery shopping; Sitting or standing; Walking; Cooking; Housework; Bathing; Using the toilet; Driving Safety precautions in home/vehicle Yes Smoke, vape, chews tobacco No Difficulty hearing Yes, I wear a hearing aid Difficulty seeing No Current Providers Specialists: I have reviewed specialist-related care of the patient in the medical record. Medical/Family history review Reviewed and updated problem list, medical/surgical/family/social history, medications, and allergies. Opioid use review Opioid Medications (last 90 days) No data to display Anxiety/Depression screening PHQ-2 Score: 0 (Lower risk for depression) RODOLFO-2 Score: 0 (Lower risk for anxiety) Recommendation: no further intervention at this time Cognitive screening Mini Cog Score: 5 Cognitive screening reviewed and No further action needed (score 3-5). Functional Observation Was the patient's Timed Up AND Go test unsteady or >= 12 seconds? No Advance Care Planning Surrogate decision maker documented and/or advance directives scanned in chart Measurements BP 118/76 (BP Site: Left Arm, BP Position: Sitting, BP Cuff Size: Regular Adult) Pulse 90 Temp 36.1 ?C (96.9 ?F) (Temporal) Resp 18 Ht 157.5 cm (5' 2") Wt 68.5 kg (151 lb) SpO2 94% BMI 27.62 kg/m? Vision Screening: Follows with optometry/ophthalmology Assessment/Plan Medicare annual wellness visit, subsequent (Z00.00) - Counseled on healthy diet and regular exercise - Fall avoidance information provided - Personalized prevention plan provided PROGRESS Observed: 09/17/2024 1:00 PM Status: COMPLETED Source: [facility] HNO ID: [id number] Author: KATHY GARRETT LPN Service: ? Author Type: LICENSED NURSE Type: Progress Notes Filed: 09/17/2024 14:13 Note Text: [employer]TENA[employer]CE DTaP,Tdap,Td Vaccine(1 - Tdap) declined Shingrix Vaccine(1 of 2) declined Pneumococcal Vaccine: 50+(1 of 1 - PCV) declined Bone Density Screening RSV Vaccine(1 - 1-dose 75+ series) declined Covid-19 Vaccine( - season) declined Esteban Naveed Woods is here today to be evaluated for a motorized manual wheelchair. A manual wheelchair is needed within the home to accomplish ADL's. For patient to get to the bathroom, kitchen, etc. Use of a cane or walker is not recommended due to good balance and a history of falling. Patient has good vision and good cognition to operate a manual wheelchair.Additional features patient would need is leg rests. The progression of her condition relatively nonprogressive. Patient has a Son who is lives/assists patient, and is able to help patient with ambulation. The patient would benefit from a manual wheelchair. ave any questions or concerns. No refills needed Kathy Garrett LPN September 17, 2024 1:09 PM CNOV Observed: 09/17/2024 1:00 PM Status: COMPLETED Source: [facility] Office Visit (FAMMAS) ESTEBAN WOODS ([id number]) 1935 F [facility] Date Time Provider Department 09/17/24 1:00 PM DARRIN HARDING [facility] During your visit today, we recorded the following information about you: Temperature Pulse Respiration Blood pressure 96.9 degrees 90/minute 18/minute 118/76 Weight Height 68.5 kg 1.575 m Kathy Garrett LPN 09/17/2024 2:13 PM Signed [employer]INTENANCE DTaP,Tdap,Td Vaccine(1 - Tdap) declined Shingrix Vaccine(1 of 2) declined Pneumococcal Vaccine: 50+(1 of 1 - PCV) declined Bone Density Screening RSV Vaccine(1 - 1-dose 75+ series) declined Covid-19 Vaccine( season) declined Esteban Lucio Peggy is here today to be evaluated for a motorized manual wheelchair. A manual wheelchair is needed within the home to accomplish ADL's. For patient to get to the bathroom, kitchen, etc. Use of a cane or walker is not recommended due to good balance and a history of falling. Patient has good vision and good cognition to operate a manual wheelchair.Additional features patient would need is leg rests. The progression of her condition relatively nonprogressive. Patient has a Son who is lives/assists patient, and is able to help patient with ambulation. The patient would benefit from a manual wheelchair. ave any questions or concerns. No refills needed Kathy Garrett LPN September 17, 2024 1:09 PM Darrin Harding MD 09/17/2024 2:13 PM Signed Subjective Erin Woods is an 89-year-old female Presents today for her Medicare wellness visit. Additionally she follows up for multiple medical problems. See list. Her chronic medical problems been stable. Additionally she presents with a history of arthritis, presenting for evaluation of joint pain. Arthritis: - Chronic joint pain, inadequately managed with Tylenol 500 mg, 4-6 tablets/day. - Tried Aspercreme with partial relief. - Inquiring about more effective pain management options. Dyspnea: - Occasional dyspnea with exertion, particularly when moving around and getting ready. - Able to walk around the house using a rollator. Atrial Fibrillation: - Denies palpitations or chest pain. - Taking Eliquis. Review of Systems GENERAL: No weight loss, malaise or fevers. HEENT: Negative for frequent or significant headaches, no changes in vision or hearing, no nose bleeds or other nasal problems NECK: Negative for lumps, goiter, pain and significant neck swelling RESPIRATORY: Positive for shortness of breath with exertion, negative for cough CARDIOVASCULAR: Negative for chest pain, leg swelling, CHF or palpitations GI: No nausea, vomiting, diarrhea, heartburn, abdominal pain, blood in stool or black stool GENITOURINARY: No history of dysuria, frequency or incontinence MUSCULOSKELETAL: Positive for joint pain, negative for swelling or muscle pain, no back pain SKIN: Negative for lesions, rash and itching PSYCH: Negative for anxiety or depression HEMATOLOGY/LYMPHOLOGY: No bleeding concerns NEURO: No history of headaches, syncope, paralysis, seizures or tremors ENDOCRINE: No history of polydipsia, increased thirst or other endocrine symptoms. History reviewed. No pertinent surgical history. PAST MEDICAL HISTORY Diagnosis Date Atrial fibrillation (HCC) 08/30/2019 Hypertension 02/25/2017 Hypothyroidism 02/25/2017 Osteoarthritis of knee 09/01/2017 History reviewed. No pertinent family history. Social History Tobacco Use Smoking status: Never Smokeless tobacco: Never Vaping Use Vaping status: Never Used Substance Use Topics Alcohol use: Never Drug use: Never ALLERGIES Allergen Reactions Cigarette Smoke Unknown MEDICATIONS: nebivolol (BYSTOLIC) 5 mg tablet Take 1 tablet by mouth once daily. ELIQUIS 5 mg tab(s) Take 1 tablet by mouth two times a day. furosemide (LASIX) 20 mg tablet Take 1 tablet by mouth once daily. (Patient taking differently: Take 20 mg by mouth once daily. Patient is taking as needed) levothyroxine (SYNTHROID) 125 mcg tablet Take 1 tablet by mouth once daily. losartan-hydroCHLOROthiazide (HYZAAR) 100-25 mg per tablet Take 1 tablet by mouth once daily. verapamil SR (CALAN SR) 180 mg CR tablet Take 2 tablets by mouth daily at bedtime. uu-te-QC-vit O-raiyl-zom-coQ10 (DAILY MULTIVITAMIN) 200-100-500 mcg cap Take 1 capsule by mouth once daily. Allergies, past surgical history, family history and past medical history were reviewed per this encounter. Medications were reviewed and verified. 07/30/2024 09/17/2024 INTAKE PAIN ASSESSMENT Are you having pain associated with your visit today? No No If pain assessment is 0, no action needed. If pain assessment is positive, please see assessment and plain. Objective Labs: Tests: (Today) Clock-drawing test: Normal result Imaging: BP 118/76 (BP Site: Left Arm, BP Position: Sitting, BP Cuff Size: Regular Adult) Pulse 90 Temp 36.1 ?C (96.9 ?F) (Temporal) Resp 18 Ht 157.5 cm (5' 2") Wt 68.5 kg (151 lb) SpO2 94% BMI 27.62 kg/m? Physical Exam GENERAL: NAD, alert and oriented. SKIN: Unremarkable, no rash or skin lesions. HEAD: Normocephalic. EYES: PERRLA, EOMI, conjunctiva clear. EARS: External ears normal, canals clear, TM's normal. NOSE/SINUSES: Nares normal. Septum midline. OROPHARYNX: Lips, mucosa, and tongue normal, good dentition. No oral lesions noted. NECK: Supple, no lymphadenopathy, normal thyroid, no carotid bruits. LUNGS: Clear to auscultation bilaterally, no wheezes/rhonchi/rales. HEART: Regular rate and rhythm, no murmurs. No ectopy. EXTREMITIES: Normal, no deformities, no skin discoloration, no edema. NEURO: Awake, alert and oriented x3, cranial nerves II-XII grossly intact, normal gait, no involuntary motions. Procedures Assessment and Plan 1. Encounter for counseling regarding advance directives (Z71.89) 2. Screening for depression (Z13.31) 3. Encounter for screening examination for other mental health and behavioral disorders (Z13.39) 4. Generalized weakness (R53.1) - wheelchair prescription. A manual wheelchair is needed within the home to accomplish ADL's. For patient to get to the bathroom, kitchen, etc. Use of a cane or walker is not recommended due to good balance and a history of falling. Patient has good vision and good cognition to operate a manual wheelchair.Additional features patient would need is leg rests. The progression of her condition relatively nonprogressive. Patient has a Son who is lives/assists patient, and is able to help patient with ambulation. The patient would benefit from a manual wheelchair. ave any questions or concerns. 5. Acquired hypothyroidism (E03.9) - Last lab work was almost a year ago. - Ordered lab work; patient instructed to be fasting. 6. Mixed hyperlipidemia (E78.2) - Last lab work was almost a year ago. - Ordered lab work; patient instructed to be fasting. 7. Hypertension, essential (I10) - Blood pressure is well-controlled. 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 Persistent atrial fibrillation (HCC) (I48.19) - No episodes of palpitations or chest pain reported. - irregularly irregular rhythm on examination. 10. Screening for deficiency anemia (Z13.0) - Last lab work was almost a year ago. 11. Primary osteoarthritis involving multiple joints (M15.0) - Pain not adequately controlled with current Tylenol regimen (4-6 tablets/day). - Advised use of Voltaren gel (diclofenac) topically 3 times daily. - Discussed that NSAIDs are contraindicated due to anticoagulant therapy. - Avoid narcotic analgesics. Darrin Harding MD 09/17/2024 Recording using BlueK[employer] software for draft documentation of the visit was discussed with the patient/authorized guest experience representative; all questions welcomed and answered. Patient/authorized guest experience representative agreed to proceed Medicare Health Risk Assessment General Health Fair Exercise: Minutes/Day 30 min Exercise: Days/Week 3 days Alcohol: Daily Use Never Alcohol: Drinks/Day Patient does not drink Alcohol: 6 or more drinks Never Feel off balance No Concerns: Teeth/Dentures No Concerns: Sexual function No Troubled by feelings None of the above Frequency: Eating healthy diet Nearly every day ADLs requiring help Grocery shopping; Sitting or standing; Walking; Cooking; Housework; Bathing; Using the toilet; Driving Safety precautions in home/vehicle Yes Smoke, vape, chews tobacco No Difficulty hearing Yes, I wear a hearing aid Difficulty seeing No Current Providers Specialists: I have reviewed specialist-related care of the patient in the medical record. Medical/Family history review Reviewed and updated problem list, medical/surgical/family/social history, medications, and allergies. Opioid use review Opioid Medications (last 90 days) No data to display Anxiety/Depression screening PHQ-2 Score: 0 (Lower risk for depression) RODOLFO-2 Score: 0 (Lower risk for anxiety) Recommendation: no further intervention at this time Cognitive screening Mini Cog Score: 5 Cognitive screening reviewed and No further action needed (score 3-5). Functional Observation Was the patient's Timed Up AND Go test unsteady or >= 12 seconds? No Advance Care Planning Surrogate decision maker documented and/or advance directives scanned in chart Measurements BP 118/76 (BP Site: Left Arm, BP Position: Sitting, BP Cuff Size: Regular Adult) Pulse 90 Temp 36.1 ?C (96.9 ?F) (Temporal) Resp 18 Ht 157.5 cm (5' 2") Wt 68.5 kg (151 lb) SpO2 94% BMI 27.62 kg/m? Vision Screening: Follows with optometry/ophthalmology Assessment/Plan Medicare annual wellness visit, subsequent (Z00.00) - Counseled on healthy diet and regular exercise - Fall avoidance information provided - Personalized prevention plan provided Darrin Harding MD 09/17/2024 2:13 PM Signed Screening schedule The following prevention plan is recommended: DTaP,Tdap,Td Vaccine(1 - Tdap) Never done Shingrix Vaccine(1 of 2) Never done Pneumococcal Vaccine: 50+(1 of 1 - PCV) Never done Bone Density Screening Never done RSV Vaccine(1 - 1-dose 75+ series) Never done Covid-19 Vaccine( season) due on 12/11/2023 Advance Directive Discussion due on 04/11/2024 Depression Screening due on 09/25/2024 Anxiety Screening due on 09/25/2024 WHAT YOU CAN DO TO PREVENT FALLS Many falls can be prevented. By making some changes, you can lower your chances of falling. Four things YOU can do to prevent falls for you* and your caregiver 1. Begin a regular exercise program Exercise is one of the most important ways to lower your chances of falling. It makes you stronger and helps you feel better. Exercises that improve balance and coordination (like Speedy Chi) are the most helpful. Lack of exercise leads to weakness and increases your chances of falling. Ask your doctor or health care provider about the best type of exercise program for you. 2. Have your health care provider review your medicines Have your doctor or pharmacist review all the medicines you take, even gmyx-rqp-cgrdokl medicines. As you get older, the way medicines work in your body can change. Some medicines, or combinations of medicines, can make you sleepy or dizzy and can cause you to fall. 3. Have your vision checked Have your eyes checked by an eye doctor at least once a year. You may be wearing the wrong glasses or have a condition like glaucoma or cataracts that limits your vision. Poor vision can increase your chances of falling. 4. Make your home safer About half of all falls happen at home. To make your home safer: Remove things you can trip over (like papers, books, clothes, and shoes) from stairs and places where you walk. Remove small throw rugs or use double-sided tape to keep the rugs from slipping. Keep items you use often in cabinets you can reach easily without using a step stool. Have grab bars put in next to your toilet and in the tub or shower. Use non-slip mats in the bathtub and on shower floors. Improve the lighting in your home. As you get older, you need brighter lights to see well. Hang light-weight curtains or shades to reduce glare. Have handrails and lights put in on all staircases. Wear shoes both inside and outside the house. Avoid going barefoot or wearing slippers. For more information, contact: Centers for Disease Control and Prevention www.cdc.gov/injury * This information may not apply if you have certain medical conditions. 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] Persistent atrial fibrillation (HCC) [I48.19] Screening for deficiency anemia [Z13.0] Primary osteoarthritis involving multiple joints [M15.0] Medicare annual wellness visit, subsequent [Z00.00] Order(s):ADVANCE CARE PLAN DISCUSSION [] Order #: [id number]: 1 DEPRESSION SCREENING [] Order #: [id number]: 1 ANXIETY SCREENING [] Order #: [id number]: 1 STANDARD WHEELCHAIR [[id number]] Order #: [id number] COMPLETE BLOOD COUNT AND DIFFERENTIAL [SQCBCDIF] Order #: [id number] FUTURE COMPREHENSIVE METABOLIC PANEL [SQCMP] Order #: [id number] FUTURE THYROID STIMULATING HORMONE [SQTSH] Order #: [id number] FUTURE STANDARD WHEELCHAIR [[id number]] Order #: [id number] STANDARD WHEELCHAIR [[id number]] Order #: [id number] STANDARD WHEELCHAIR [[id number]] Order #: [id number] Prescriptions as of 09/17/2024 - nebivolol (BYSTOLIC) 5 mg tablet Take 1 tablet by mouth once daily. - ELIQUIS 5 mg tab(s) Take 1 tablet by mouth two times a day. - furosemide (LASIX) 20 mg tablet Take 1 tablet by mouth once daily. - levothyroxine (SYNTHROID) 125 mcg tablet Take 1 tablet by mouth once daily. - losartan-hydroCHLOROthiazide (HYZAAR) 100-25 mg per tablet Take 1 tablet by mouth once daily. - verapamil SR (CALAN SR) 180 mg CR tablet Take 2 tablets by mouth daily at bedtime. - rt-gk-JZ-vit Z-kiyik-pyl-coQ10 (DAILY MULTIVITAMIN) 200-100-500 mcg cap Take 1 capsule by mouth once daily. Problem List As Of Date 09/17/2024 Noted Resolved Atrial fibrillation (HCC) [I48.91] 08/30/2019 Hypertension, essential [I10] 02/25/2017 Hypothyroidism [E03.9] 02/25/2017 Osteoarthritis of knee [M17.9] 09/01/2017 Hyperlipidemia, unspecified [E78.5] 09/26/2023 Intracranial meningioma (HCC) [D32.0] 06/15/2024 Other instructions from your clinician: Screening schedule The following prevention plan is recommended: DTaP,Tdap,Td Vaccine(1 - Tdap) Never done Shingrix Vaccine(1 of 2) Never done Pneumococcal Vaccine: 50+(1 of 1 - PCV) Never done Bone Density Screening Never done RSV Vaccine(1 - 1-dose 75+ series) Never done Covid-19 Vaccine() due on 12/11/2023 Advance Directive Discussion due on 04/11/2024 Depression Screening due on 09/25/2024 Anxiety Screening due on 09/25/2024 WHAT YOU CAN DO TO PREVENT FALLS Many falls can be prevented. By making some changes, you can lower your chances of falling. Four things YOU can do to prevent falls for you* and your caregiver 1. Begin a regular exercise program Exercise is one of the most important ways to lower your chances of falling. It makes you stronger and helps you feel better. Exercises that improve balance and coordination (like Speedy Chi) are the most helpful. Lack of exercise leads to weakness and increases your chances of falling. Ask your doctor or health care provider about the best type of exercise program for you. 2. Have your health care provider review your medicines Have your doctor or pharmacist review all the medicines you take, even fxnd-nro-clwamoy medicines. As you get older, the way medicines work in your body can change. Some medicines, or combinations of medicines, can make you sleepy or dizzy and can cause you to fall. 3. Have your vision checked Have your eyes checked by an eye doctor at least once a year. You may be wearing the wrong glasses or have a condition like glaucoma or cataracts that limits your vision. Poor vision can increase your chances of falling. 4. Make your home safer About half of all falls happen at home. To make your home safer: Remove things you can trip over (like papers, books, clothes, and shoes) from stairs and places where you walk. Remove small throw rugs or use double-sided tape to keep the rugs from slipping. Keep items you use often in cabinets you can reach easily without using a step stool. Have grab bars put in next to your toilet and in the tub or shower. Use non-slip mats in the bathtub and on shower floors. Improve the lighting in your home. As you get older, you need brighter lights to see well. Hang light-weight curtains or shades to reduce glare. Have handrails and lights put in on all staircases. Wear shoes both inside and outside the house. Avoid going barefoot or wearing slippers. For more information, contact: Centers for Disease Control and Prevention www.cdc.gov/injury * This information may not apply if you have certain medical conditions. Level of Service: PPPS, SUBSEQ VISIT [G0439] Additional E/M codes: VISIT CPLX INHERENT EANDM ASSOC WITH MED * LOS History for Encounter Level of Service: PPPS, SUBSEQ VISIT[G0439] Date AND Time: 09-17-2024 2:13 PM Recorded by User: DARRIN HARDING Encounter Status:Closed by DARRIN HARDING on 09/17/24 PROGRESS Observed: 07/30/2024 1:53 PM Status: COMPLETED [facility] [id number] Author: DARRIN HARDING MD Service: ? Author Type: Physician Type: Progress Notes Filed: 07/30/2024 13:53 Note Text: Khai Khan is an 89-year-old female with a history of atrial fibrillation, presenting for follow-up. Atrial Fibrillation: - Denies dyspnea, pedal edema, or palpitations. - Not taking Lasix as she hasn't felt the need. - Currently taking Eliquis; experienced a delay in receiving prescriptions from June 27 to July 17. - Ran out of Eliquis during this period and resumed aspirin until Eliquis was available. - Next appointment scheduled for September. Review of Systems GENERAL: No weight loss, generalized discomfort, or fever HEENT: Negative for frequent or significant headaches, no changes in vision or hearing, no epistaxis or other nasal problems NECK: Negative for lumps, goiter, pain, or significant neck swelling RESPIRATORY: Negative for cough, dyspnea, or shortness of breath CARDIOVASCULAR: Negative for chest pain, leg swelling, CHF, or palpitations GI: No nausea, vomiting, diarrhea, heartburn, abdominal pain, blood in stool, or melena GENITOURINARY: No history of dysuria, frequency, or incontinence MUSCULOSKELETAL: Negative for joint pain or swelling, or myalgia. No back pain SKIN: Negative for lesions, rash, or itching PSYCH: Negative for anxiety or depression HEMATOLOGY/LYMPHOLOGY: No bleeding concerns NEURO: No history of headaches, syncope, paralysis, seizures, or tremors ENDOCRINE: No history of polydipsia or other endocrine symptoms History reviewed. No pertinent surgical history. PAST MEDICAL HISTORY Diagnosis Date Atrial fibrillation (HCC) 08/30/2019 Hypertension 02/25/2017 Hypothyroidism 02/25/2017 Osteoarthritis of knee 09/01/2017 History reviewed. No pertinent family history. Social History Tobacco Use Smoking status: Never Smokeless tobacco: Never Vaping Use Vaping status: Never Used Substance Use Topics Alcohol use: Never Drug use: Never ALLERGIES Allergen Reactions Cigarette Smoke Unknown MEDICATIONS: nebivolol (BYSTOLIC) 5 mg tablet Take 1 tablet by mouth once daily. ELIQUIS 5 mg tab(s) Take 1 tablet by mouth two times a day. furosemide (LASIX) 20 mg tablet Take 1 tablet by mouth once daily. levothyroxine (SYNTHROID) 125 mcg tablet Take 1 tablet by mouth once daily. losartan-hydroCHLOROthiazide (HYZAAR) 100-25 mg per tablet Take 1 tablet by mouth once daily. verapamil SR (CALAN SR) 180 mg CR tablet Take 2 tablets by mouth daily at bedtime. dt-vo-CJ-vit V-ppsbq-kdg-coQ10 (DAILY MULTIVITAMIN) 200-100-500 mcg cap Take 1 capsule by mouth once daily. Allergies, past surgical history, family history and past medical history were reviewed per this encounter. Medications were reviewed and verified. 06/27/2024 07/30/2024 INTAKE PAIN ASSESSMENT Are you having pain associated with your visit today? No No If pain assessment is 0, no action needed. If pain assessment is positive, please see assessment and plain. Objective BP 126/78 (BP Site: Left Arm, BP Position: Sitting, BP Cuff Size: Regular Adult) Pulse 68 Temp 36.3 ?C (97.3 ?F) (Temporal) Resp 20 Ht 157.5 cm (5' 2") Wt 71.7 kg (158 lb) SpO2 94% BMI 28.90 kg/m? Physical Exam GENERAL: NAD, alert and oriented. SKIN: Unremarkable, no rash or skin lesions. HEAD: Normocephalic. EYES: PERRLA, EOMI, conjunctiva clear. EARS: External ears normal, canals clear, TM's normal. NOSE/SINUSES: Nares normal. Septum midline. OROPHARYNX: Lips, mucosa, and tongue normal, good dentition. No oral lesions noted. NECK: Supple, no lymphadenopathy, normal thyroid, no carotid bruits. LUNGS: Clear to auscultation bilaterally, no wheezes/rhonchi/rales. HEART: Regular rate and rhythm, no murmurs. No ectopy. EXTREMITIES: Normal, no deformities, no skin discoloration, no edema. NEURO: Awake, alert and oriented x3, cranial nerves II-XII grossly intact, normal gait, no involuntary motions. Procedures Assessment and Plan 1. 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 - Continues on Eliquis; experienced a delay in medication refill but resumed promptly. - No need for monthly nursing visits for monitoring heart, lungs, and vitals at this time. - Follow-up in September for annual wellness visit. 3. Hypertension, essential (I10) - Blood pressure readings are stable. - No changes to current antihypertensive regimen. 4. Acquired hypothyroidism (E03.9) 5. Mixed hyperlipidemia (E78.2) Darrin Harding MD 07/30/2024 Recording using BlueKite software for draft documentation of the visit was discussed with the patient/authorized guest experience representative; all questions welcomed and answered. Patient/authorized guest experience representative agreed to proceed PROGRESS Observed: 07/30/2024 1:00 PM Status: COMPLETED Source: [facility] HNO ID: [id number] Author: KATHY GARRETT LPN Service: ? Author Type: LICENSED NURSE Type: Progress Notes Filed: 07/30/2024 13:53 Note Text: Patient is in office for follow up for chronic medical conditions. Patient was last seen in office on 06-27-2024 following a hospital admission Patient was advised: Persistent atrial fibrillation (HCC) I48.19 RVR resolved. Continue beta-marilyn. Monitor symptoms Acute lower UTI N39.0 Resolved. 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 Denies UTI symptoms. Patient states that edema has been decreased. No refills needed Kathy Garrett LPN July 30, 2024 1:01 PM CNOV Observed: 07/30/2024 1:00 PM Status: COMPLETED Source: [facility] Office Visit (FAMMAS) ESTEBAN WOODS ([id number]) 1935 F [facility] Date Time Provider Department 07/30/24 1:00 PM DARRIN HARDING [facility] During your visit today, we recorded the following information about you: Temperature Pulse Respiration Blood pressure 97.3 degrees 68/minute 20/minute 126/78 Weight Height 71.7 kg 1.575 m Kathy Garrett LPN 07/30/2024 1:53 PM Signed Patient is in office for follow up for chronic medical conditions. Patient was last seen in office on 06-27-2024 following a hospital admission Patient was advised: Persistent atrial fibrillation (HCC) I48.19 RVR resolved. Continue beta-marilyn. Monitor symptoms Acute lower UTI N39.0 Resolved. 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 Denies UTI symptoms. Patient states that edema has been decreased. No refills needed Kathy Garrett LPN July 30, 2024 1:01 PM Darrin Harding MD 07/30/2024 1:53 PM Signed Subjective Erin is an 89-year-old female with a history of atrial fibrillation, presenting for follow-up. Atrial Fibrillation: - Denies dyspnea, pedal edema, or palpitations. - Not taking Lasix as she hasn't felt the need. - Currently taking Eliquis; experienced a delay in receiving prescriptions from June 27 to July 17. - Ran out of Eliquis during this period and resumed aspirin until Eliquis was available. - Next appointment scheduled for September. Review of Systems GENERAL: No weight loss, generalized discomfort, or fever HEENT: Negative for frequent or significant headaches, no changes in vision or hearing, no epistaxis or other nasal problems NECK: Negative for lumps, goiter, pain, or significant neck swelling RESPIRATORY: Negative for cough, dyspnea, or shortness of breath CARDIOVASCULAR: Negative for chest pain, leg swelling, CHF, or palpitations GI: No nausea, vomiting, diarrhea, heartburn, abdominal pain, blood in stool, or melena GENITOURINARY: No history of dysuria, frequency, or incontinence MUSCULOSKELETAL: Negative for joint pain or swelling, or myalgia. No back pain SKIN: Negative for lesions, rash, or itching PSYCH: Negative for anxiety or depression HEMATOLOGY/LYMPHOLOGY: No bleeding concerns NEURO: No history of headaches, syncope, paralysis, seizures, or tremors ENDOCRINE: No history of polydipsia or other endocrine symptoms History reviewed. No pertinent surgical history. PAST MEDICAL HISTORY Diagnosis Date Atrial fibrillation (HCC) 08/30/2019 Hypertension 02/25/2017 Hypothyroidism 02/25/2017 Osteoarthritis of knee 09/01/2017 History reviewed. No pertinent family history. Social History Tobacco Use Smoking status: Never Smokeless tobacco: Never Vaping Use Vaping status: Never Used Substance Use Topics Alcohol use: Never Drug use: Never ALLERGIES Allergen Reactions Cigarette Smoke Unknown MEDICATIONS: nebivolol (BYSTOLIC) 5 mg tablet Take 1 tablet by mouth once daily. ELIQUIS 5 mg tab(s) Take 1 tablet by mouth two times a day. furosemide (LASIX) 20 mg tablet Take 1 tablet by mouth once daily. levothyroxine (SYNTHROID) 125 mcg tablet Take 1 tablet by mouth once daily. losartan-hydroCHLOROthiazide (HYZAAR) 100-25 mg per tablet Take 1 tablet by mouth once daily. verapamil SR (CALAN SR) 180 mg CR tablet Take 2 tablets by mouth daily at bedtime. ks-we-LM-vit G-iqcip-bnu-coQ10 (DAILY MULTIVITAMIN) 200-100-500 mcg cap Take 1 capsule by mouth once daily. Allergies, past surgical history, family history and past medical history were reviewed per this encounter. Medications were reviewed and verified. 06/27/2024 07/30/2024 INTAKE PAIN ASSESSMENT Are you having pain associated with your visit today? No No If pain assessment is 0, no action needed. If pain assessment is positive, please see assessment and plain. Objective BP 126/78 (BP Site: Left Arm, BP Position: Sitting, BP Cuff Size: Regular Adult) Pulse 68 Temp 36.3 ?C (97.3 ?F) (Temporal) Resp 20 Ht 157.5 cm (5' 2") Wt 71.7 kg (158 lb) SpO2 94% BMI 28.90 kg/m? Physical Exam GENERAL: NAD, alert and oriented. SKIN: Unremarkable, no rash or skin lesions. HEAD: Normocephalic. EYES: PERRLA, EOMI, conjunctiva clear. EARS: External ears normal, canals clear, TM's normal. NOSE/SINUSES: Nares normal. Septum midline. OROPHARYNX: Lips, mucosa, and tongue normal, good dentition. No oral lesions noted. NECK: Supple, no lymphadenopathy, normal thyroid, no carotid bruits. LUNGS: Clear to auscultation bilaterally, no wheezes/rhonchi/rales. HEART: Regular rate and rhythm, no murmurs. No ectopy. EXTREMITIES: Normal, no deformities, no skin discoloration, no edema. NEURO: Awake, alert and oriented x3, cranial nerves II-XII grossly intact, normal gait, no involuntary motions. Procedures Assessment and Plan 1. Paroxysmal atrial fibrillation (HCC) (I48.0) 2. jail (current) use of anticoagulants (Z79.01) - No recent episodes of palpitations or tachycardia; maintaining sinus rhythm. - Continues on Eliquis; experienced a delay in medication refill but resumed promptly. - No need for monthly nursing visits for monitoring heart, lungs, and vitals at this time. - Follow-up in September for annual wellness visit. 3. Hypertension, essential (I10) - Blood pressure readings are stable. - No changes to current antihypertensive regimen. 4. Acquired hypothyroidism (E03.9) 5. Mixed hyperlipidemia (E78.2) Darrin Harding MD 07/30/2024 Recording using BlueKite software for draft documentation of the visit was discussed with the patient/authorized guest experience representative; all questions welcomed and answered. 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 - ELIQUIS 5 mg tab(s) Take 1 tablet by mouth two times a day. - furosemide (LASIX) 20 mg tablet Take 1 tablet by mouth once daily. - levothyroxine (SYNTHROID) 125 mcg tablet Take 1 tablet by mouth once daily. - losartan-hydroCHLOROthiazide (HYZAAR) 100-25 mg per tablet Take 1 tablet by mouth once daily. - verapamil SR (CALAN SR) 180 mg CR tablet Take 2 tablets by mouth daily at bedtime. - fo-ix-SD-vit V-jdgcx-fip-coQ10 (DAILY MULTIVITAMIN) 200-100-500 mcg cap Take 1 capsule by mouth once daily. Problem List As Of Date 07/30/2024 Noted Resolved Atrial fibrillation (HCC) [I48.91] 08/30/2019 Hypertension, essential [I10] 02/25/2017 Hypothyroidism [E03.9] 02/25/2017 Osteoarthritis of knee [M17.9] 09/01/2017 Hyperlipidemia, unspecified [E78.5] 09/26/2023 Intracranial meningioma (HCC) [D32.0] 06/15/2024 Level of Service: OFFICE/OUTPATIENT ESTABLISHED LOW MDM 20 MIN [94267] Additional E/M codes: VISIT CPLX INHERENT EANDM ASSOC WITH MED * Encounter Status:Closed by DARRIN HARDING on 07/30/24 PROGRESS Observed: 07/05/2024 1:42 PM Status: COMPLETED Source: [facility] HNO ID: [id number] Author: HARDIK WEBER RN Service: ? Author Type: Registered Nurse Type: Progress Notes Filed: 07/05/2024 13:45 Note Text: Unable to make contact Provider Action/FYI Patient identified by name and date of : YES An attempt was made to contact: Patient Was a voicemail left? No unable to leave a voicemail Outreach Plan: Follow up call needed:No Hardik Weber RN CNPTOUTREACH Observed: 07/05/2024 12:00 AM Status: COMPLETED Source: [facility] Patient Outreach (MRCAC) ESTEBAN WOODS ([id number]) 1935 F [facility] Date Time Provider Department 07/05/24 HARDIK WEBER [facility] During your visit today, we recorded the following information about you: Hardik Weber RN 07/05/2024 1:45 PM Signed Unable to make contact Provider Action/FYI Patient identified by name and date of : YES An attempt was made to contact: Patient Was a voicemail left? No unable to leave a voicemail Outreach Plan: Follow up call needed:No Hardik Weber RN Allergies As of Date: 07/05/2024 Noted Allergy Reaction CIGARETTE SMOKE 09/03/2020 16 - Unknown Date Reviewed: 06/27/2024 Reviewed by: Kathy Garrett LPN - Fully Assessed Prescriptions as of 07/05/2024 - nebivolol (BYSTOLIC) 5 mg tablet Take 1 tablet by mouth once daily. - ELIQUIS 5 mg tab(s) Take 1 tablet by mouth two times a day. - furosemide (LASIX) 20 mg tablet Take 1 tablet by mouth once daily. - levothyroxine (SYNTHROID) 125 mcg tablet Take 1 tablet by mouth once daily. - losartan-hydroCHLOROthiazide (HYZAAR) 100-25 mg per tablet Take 1 tablet by mouth once daily. - verapamil SR (CALAN SR) 180 mg CR tablet Take 2 tablets by mouth daily at bedtime. - ec-jw-ZV-vit H-nvpop-abk-coQ10 (DAILY MULTIVITAMIN) 200-100-500 mcg cap Take 1 capsule by mouth once daily. Problem List As Of Date 07/05/2024 Noted Resolved Atrial fibrillation (HCC) [I48.91] 08/30/2019 Hypertension, essential [I10] 02/25/2017 Hypothyroidism [E03.9] 02/25/2017 Osteoarthritis of knee [M17.9] 09/01/2017 Encounter Status:Closed by HARDIK WEBER on 07/05/24 PROGRESS Observed: 06/27/2024 1:52 PM Status: COMPLETED Source: [facility] HNO ID: [id number] Author: DARRIN HARDING MD Service: ? Author Type: Physician Type: Progress Notes Filed: 06/27/2024 14:08 Note Text: Subjective Esteban Woods is a 88 year old female.Patient is in office for a Transition of Care Visit following recent hospital stay. Patient was evaluated and treated at [facility] from 06-11-2024 to 06-15-2024 for UTI with urosepsis, A fib with RVR, Acute on chronic respiratory failure. Congestive heart failure. She was placed on beta-marilyn, Eliquis, Lasix. Ejection fraction was 43%. He is currently asymptomatic. She remains in A-fib. No RVR since being home. Review of Systems Constitutional: Negative. HENT: Negative. Eyes: Negative. Respiratory: Negative. Cardiovascular: Negative. Gastrointestinal: Negative. Endocrine: Negative. Genitourinary: Negative. Musculoskeletal: Negative. Skin: Negative. Allergic/Immunologic: Negative. Neurological: Negative. Hematological: Negative. Psychiatric/Behavioral: Negative. History reviewed. No pertinent surgical history. PAST MEDICAL HISTORY Diagnosis Date Atrial fibrillation (HCC) 08/30/2019 Hypertension 02/25/2017 Hypothyroidism 02/25/2017 Osteoarthritis of knee 09/01/2017 History reviewed. No pertinent family history. Social History Tobacco Use Smoking status: Never Smokeless tobacco: Never Vaping Use Vaping status: Never Used Substance Use Topics Alcohol use: Never Drug use: Never ALLERGIES Allergen Reactions Cigarette Smoke Unknown MEDICATIONS: levothyroxine (SYNTHROID) 125 mcg tablet Take 1 tablet by mouth once daily. losartan-hydroCHLOROthiazide (HYZAAR) 100-25 mg per tablet Take 1 tablet by mouth once daily. verapamil SR (CALAN SR) 180 mg CR tablet Take 2 tablets by mouth daily at bedtime. xb-ry-GY-vit Z-yodra-dwr-coQ10 (DAILY MULTIVITAMIN) 200-100-500 mcg cap Take 1 capsule by mouth once daily. nebivolol (BYSTOLIC) 5 mg tablet Take 1 tablet by mouth once daily. ELIQUIS 5 mg tab(s) Take 1 tablet by mouth two times a day. furosemide (LASIX) 20 mg tablet Take 1 tablet by mouth once daily. Allergies, past surgical history, family history and past medical history were reviewed per this encounter. Medications were reviewed and verified. 03/19/2024 06/27/2024 INTAKE PAIN ASSESSMENT Are you having pain associated with your visit today? No No If pain assessment is 0, no action needed. If pain assessment is positive, please see assessment and plain. Objective BP 122/78 (BP Site: Left Arm, BP Position: Sitting, BP Cuff Size: Regular Adult) Pulse 105 Temp 36.1 ?C (96.9 ?F) (Temporal) Resp 18 Ht 157.5 cm (5' 2") Wt 69.4 kg (153 lb) SpO2 95% BMI 27.98 kg/m? Physical Exam Vitals reviewed. Constitutional: Appearance: Normal appearance. HENT: Head: Normocephalic and atraumatic. Nose: Nose normal. Eyes: Extraocular Movements: Extraocular movements intact. Pupils: Pupils are equal, round, and reactive to light. Cardiovascular: Rate and Rhythm: Normal rate. Rhythm irregularly irregular. Pulmonary: Effort: Pulmonary effort is normal. Breath sounds: Normal breath sounds. Abdominal: General: Bowel sounds are normal. Palpations: Abdomen is soft. Musculoskeletal: General: Normal range of motion. Cervical back: Normal range of motion and neck supple. Skin: General: Skin is warm and dry. Capillary Refill: Capillary refill takes less than 2 seconds. Neurological: General: No focal deficit present. Mental Status: She is alert and oriented to person, place, and time. Mental status is at baseline. Psychiatric: Mood and Affect: Mood normal. Behavior: Behavior normal. Procedures Assessment and Plan Encounter Diagnosis ICD-10-CM 1. Persistent atrial fibrillation ([facility]) I48.19 RVR resolved. Continue beta-marilyn. Monitor symptoms. 2. Hypertension, essential I10 Stable 3. Sepsis, due to unspecified organism, unspecified whether acute organ dysfunction present ([facility]) A41.9 Resolved 4. Acute respiratory failure with hypoxia ([facility]) J96.01 Resolved 5. Acute lower UTI N39.0 Resolved. Discussed hygiene to reduce risk of recurrence of UTI 6. Acute heart failure with mildly reduced ejection fraction (HFmrEF, 41-49%) ([facility]) I50.21 Improved on Lasix 7. jail current use of anticoagulant therapy Z79.01 Eliquis twice daily Darrin Harding MD June 27, 2024 06/27/2024 PROGRESS Observed: 06/27/2024 1:00 PM Status: COMPLETED Source: [facility] HNO ID: [id number] Author: KATHY GARRETT LPN Service: ? Author Type: LICENSED NURSE Type: Progress Notes Filed: 06/27/2024 14:08 Note Text: Patient is in office for a Transition of Care Visit following recent hospital stay. Patient was evaluated and treated at [facility] from 06-11-2024 to 06-15-2024 for UTI with urosepsis, A fib with RVR, Acute on chronic respiratory failure. Discharge medications: Furosemide 20 mg tablet BID Eliquis 5 mg BID Cephalexin 500 mg BID x 2 days Aspirin discontinued No changes in other medications Patient states she had altered mental status, therefore went to the hospital. Patient states she is doing well and feeling better Kathy Garrett LPN June 27, 2024 1:03 PM CNOV Observed: 06/27/2024 1:00 PM Status: COMPLETED Source: [facility] Office Visit (FAMMAS) ESTEBAN WOODS ([id number]) 1935 F [facility] Date Time Provider Department 06/27/24 1:00 PM DARRNI HARDING [facility] During your visit today, we recorded the following information about you: Temperature Pulse Respiration Blood pressure 96.9 degrees 105/minute 18/minute 122/78 Weight Height 69.4 kg 1.575 m Kathy Garrett LPN 06/27/2024 2:08 PM Signed Patient is in office for a Transition of Care Visit following recent hospital stay. Patient was evaluated and treated at [facility] from 06-11-2024 to 06-15-2024 for UTI with urosepsis, A fib with RVR, Acute on chronic respiratory failure. Discharge medications: Furosemide 20 mg tablet BID Eliquis 5 mg BID Cephalexin 500 mg BID x 2 days Aspirin discontinued No changes in other medications Patient states she had altered mental status, therefore went to the hospital. Patient states she is doing well and feeling better Kathy Garrett LPN June 27, 2024 1:03 PM Darrin Harding MD 06/27/2024 2:08 PM Signed Subjective Esteban Woods is a 88 year old female.Patient is in office for a Transition of Care Visit following recent hospital stay. Patient was evaluated and treated at [facility] from 06-11-2024 to 06-15-2024 for UTI with urosepsis, A fib with RVR, Acute on chronic respiratory failure. Congestive heart failure. She was placed on beta-marilyn, Eliquis, Lasix. Ejection fraction was 43%. He is currently asymptomatic. She remains in A-fib. No RVR since being home. Review of Systems Constitutional: Negative. HENT: Negative. Eyes: Negative. Respiratory: Negative. Cardiovascular: Negative. Gastrointestinal: Negative. Endocrine: Negative. Genitourinary: Negative. Musculoskeletal: Negative. Skin: Negative. Allergic/Immunologic: Negative. Neurological: Negative. Hematological: Negative. Psychiatric/Behavioral: Negative. History reviewed. No pertinent surgical history. PAST MEDICAL HISTORY Diagnosis Date Atrial fibrillation (HCC) 08/30/2019 Hypertension 02/25/2017 Hypothyroidism 02/25/2017 Osteoarthritis of knee 09/01/2017 History reviewed. No pertinent family history. Social History Tobacco Use Smoking status: Never Smokeless tobacco: Never Vaping Use Vaping status: Never Used Substance Use Topics Alcohol use: Never Drug use: Never ALLERGIES Allergen Reactions Cigarette Smoke Unknown MEDICATIONS: levothyroxine (SYNTHROID) 125 mcg tablet Take 1 tablet by mouth once daily. losartan-hydroCHLOROthiazide (HYZAAR) 100-25 mg per tablet Take 1 tablet by mouth once daily. verapamil SR (CALAN SR) 180 mg CR tablet Take 2 tablets by mouth daily at bedtime. nf-uv-BG-vit D-odmdk-ahq-coQ10 (DAILY MULTIVITAMIN) 200-100-500 mcg cap Take 1 capsule by mouth once daily. nebivolol (BYSTOLIC) 5 mg tablet Take 1 tablet by mouth once daily. ELIQUIS 5 mg tab(s) Take 1 tablet by mouth two times a day. furosemide (LASIX) 20 mg tablet Take 1 tablet by mouth once daily. Allergies, past surgical history, family history and past medical history were reviewed per this encounter. Medications were reviewed and verified. 03/19/2024 06/27/2024 INTAKE PAIN ASSESSMENT Are you having pain associated with your visit today? No No If pain assessment is 0, no action needed. If pain assessment is positive, please see assessment and plain. Objective BP 122/78 (BP Site: Left Arm, BP Position: Sitting, BP Cuff Size: Regular Adult) Pulse 105 Temp 36.1 ?C (96.9 ?F) (Temporal) Resp 18 Ht 157.5 cm (5' 2") Wt 69.4 kg (153 lb) SpO2 95% BMI 27.98 kg/m? Physical Exam Vitals reviewed. Constitutional: Appearance: Normal appearance. HENT: Head: Normocephalic and atraumatic. Nose: Nose normal. Eyes: Extraocular Movements: Extraocular movements intact. Pupils: Pupils are equal, round, and reactive to light. Cardiovascular: Rate and Rhythm: Normal rate. Rhythm irregularly irregular. Pulmonary: Effort: Pulmonary effort is normal. Breath sounds: Normal breath sounds. Abdominal: General: Bowel sounds are normal. Palpations: Abdomen is soft. Musculoskeletal: General: Normal range of motion. Cervical back: Normal range of motion and neck supple. Skin: General: Skin is warm and dry. Capillary Refill: Capillary refill takes less than 2 seconds. Neurological: General: No focal deficit present. Mental Status: She is alert and oriented to person, place, and time. Mental status is at baseline. Psychiatric: Mood and Affect: Mood normal. Behavior: Behavior normal. Procedures Assessment and Plan Encounter Diagnosis ICD-10-CM 1. Persistent atrial fibrillation (HCC) I48.19 RVR resolved. Continue beta-marilyn. Monitor symptoms. 2. Hypertension, essential I10 Stable 3. Sepsis, due to unspecified organism, unspecified whether acute organ dysfunction present ([facility]) A41.9 Resolved 4. Acute respiratory failure with hypoxia ([facility]) J96.01 Resolved 5. Acute lower UTI N39.0 Resolved. Discussed hygiene to reduce risk of recurrence of UTI 6. 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 Continue beta-marilyn. Monitor symptoms. Other Visit Diagnoses:Hypertension, essential [I10] Comment:Stable Sepsis, due to unspecified organism, unspecified whether acute organ dysfunction present ([facility]) [A41.9] Comment:Resolved Acute respiratory failure with hypoxia ([facility]) [J96.01] Comment:Resolved Acute lower UTI [N39.0] Comment:Resolved. Discussed hygiene to reduce risk of recurrence of UTI Acute heart failure with mildly reduced ejection fraction (HFmrEF, 41-49%) ([facility]) [I50.21] Comment:Improved on Lasix jail current use of anticoagulant therapy [Z79.01] Comment:Eliquis twice daily Order(s):nebivolol (BYSTOLIC) 5 mg tabletTake 1 tablet by mouth once daily.Disp: 90 tabletRfl: 3 ELIQUIS 5 mg tab(s)Take 1 tablet by mouth two times a day.Disp: 180 tabletRfl: 3 furosemide (LASIX) 20 mg tabletTake 1 tablet by mouth once daily.Disp: 90 tabletRfl: 3 Prescriptions as of 06/27/2024 - nebivolol (BYSTOLIC) 5 mg tablet Take 1 tablet by mouth once daily. - ELIQUIS 5 mg tab(s) Take 1 tablet by mouth two times a day. - furosemide (LASIX) 20 mg tablet Take 1 tablet by mouth once daily. - levothyroxine (SYNTHROID) 125 mcg tablet Take 1 tablet by mouth once daily. - losartan-hydroCHLOROthiazide (HYZAAR) 100-25 mg per tablet Take 1 tablet by mouth once daily. - verapamil SR (CALAN SR) 180 mg CR tablet Take 2 tablets by mouth daily at bedtime. - sg-uc-MT-vit L-llzky-jfl-coQ10 (DAILY MULTIVITAMIN) 200-100-500 mcg cap Take 1 capsule by mouth once daily. Problem List As Of Date 06/27/2024 Noted Resolved Atrial fibrillation (HCC) [I48.91] 08/30/2019 Hypertension, essential [I10] 02/25/2017 Hypothyroidism [E03.9] 02/25/2017 Osteoarthritis of knee [M17.9] 09/01/2017 Prescriptions ordered this encounter Disp Refills Start End NEBIVOLOL 5 MG TABLET 90 t* 3 06/27/2024 Class: Print RX Route: ORAL Sig: Take 1 tablet by mouth once daily. FUROSEMIDE 20 MG TABLET 90 t* 3 06/27/2024 06/27/2024 Route: ORAL Sig: Take 1 tablet by mouth once daily. ELIQUIS 5 MG TABLET 180 * 3 06/27/2024 06/27/2024 Route: ORAL Sig: Take 1 tablet by mouth two times a day. ELIQUIS 5 MG TABLET 180 * 3 06/27/2024 06/27/2025 Class: Print RX Route: ORAL Sig: Take 1 tablet by mouth two times a day. FUROSEMIDE 20 MG TABLET 90 t* 3 06/27/2024 Class: Print RX Route: ORAL Sig: Take 1 tablet by mouth once daily. Medications Discontinued During This Encounter Prescriptions - aspirin, enteric coated (ECOTRIN LOW STRENGTH) 81 mg EC tablet (Discontinued) Take 81 mg by mouth once daily. - nebivolol (BYSTOLIC) 5 mg tablet (Discontinued) Take 1 tablet by mouth once daily. - ELIQUIS 5 mg tab(s) (Discontinued) Take 5 mg by mouth two times a day. - furosemide (LASIX) 20 mg tablet (Discontinued) Take 20 mg by mouth two times a day. - furosemide (LASIX) 20 mg tablet (Discontinued) Take 1 tablet by mouth once daily. - ELIQUIS 5 mg tab(s) (Discontinued) Take 1 tablet by mouth two times a day. Level of Service: [facility] F2F 7 SHARATH D DISCHARGE [94492] Encounter Status:Closed by DARRIN HARDING on 06/27/24 PROGRESS Observed: 06/19/2024 1:46 PM Status: COMPLETED Source: [facility] HNO ID: [id number] Author: HARDIK WEBER RN Service: ? Author Type: Registered Nurse Type: Progress Notes Filed: 06/19/2024 14:05 Note Text: TRANSITION CARE MANAGEMENT (TCM) FOLLOW-UP NOTE Provider Action/FYI Patient identified by name and date of : YES Spoke to patient Discharge Network Status: Xlq-xu-Hwbtjbi (OON) Discharge Summary: Patient answered the phone, I introduced myself and patient then hung up the phone. 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: Will follow up yes LOUISE Education Ordered -: No Hardik Weber RN June 19, 2024 2:04 PM CNPTOUTREAROSEY Observed: 06/19/2024 12:00 AM Status: COMPLETED Source: [facility] Patient Outreach ([facility]) ESTEBAN WOODS ([id number]) 1935 F T Date Time Provider Department 06/19/24 HARDIK WEBER During your visit today, we recorded the following information about you: Hardik Weber RN 06/19/2024 2:05 PM Addendum TRANSITION CARE MANAGEMENT (TCM) FOLLOW-UP NOTE Provider Action/FYI Patient identified by name and date of : YES Spoke to patient Discharge Network Status: [id number]-ni-Jbqokdn (OON) Discharge Summary: Patient answered the phone, I introduced myself and patient then hung up the phone. 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 - losartan-hydroCHLOROthiazide (HYZAAR) 100-25 mg per tablet Take 1 tablet by mouth once daily. - nebivolol (BYSTOLIC) 5 mg tablet Take 1 tablet by mouth once daily. - verapamil SR (CALAN SR) 180 mg CR tablet Take 2 tablets by mouth daily at bedtime. - aspirin, enteric coated (ECOTRIN LOW STRENGTH) 81 mg EC tablet Take 81 mg by mouth once daily. - ox-gk-SG-vit X-xaopf-zqj-coQ10 (DAILY MULTIVITAMIN) 200-100-500 mcg cap Take 1 capsule by mouth once daily. Problem List As Of Date 06/19/2024 Noted Resolved Atrial fibrillation (HCC) [I48.91] 08/30/2019 Hypertension, essential [I10] 02/25/2017 Hypothyroidism [E03.9] 02/25/2017 Osteoarthritis of knee [M17.9] 09/01/2017 Encounter Status:Closed by HARDIK WEBER on 06/19/24 PROGRESS Observed: 06/18/2024 12:17 PM Status: COMPLETED Source: [facility] HNO ID: [id number] Author: HARDIK WEBER RN Service: ? Author Type: Registered Nurse Type: Progress Notes Filed: 06/18/2024 12:18 Note Text: Unable to make contact Provider Action/FYI Patient identified by name and date of : YES An attempt was made to contact: Patient Was a voicemail left? No unable to leave a voicemail Outreach Plan: Follow up call needed:No Hardik Weber RN CNPTOUTREACH Observed: 06/18/2024 12:00 AM Status: COMPLETED Source: [facility] Patient Outreach ([facility]CAC) ESTEBAN WOODS ([id number]) 1935 F [facility] Date Time Provider Department 06/18/24 HARDIK WEBER [facility] During your visit today, we recorded the following information about you: Hardik Weber RN 06/18/2024 12:18 PM Signed Unable to make contact Provider Action/FYI Patient identified by name and date of : YES An attempt was made to contact: Patient Was a voicemail left? No unable to leave a voicemail Outreach Plan: Follow up call needed:No Hardik Weber RN Allergies As of Date: 06/18/2024 Noted Allergy Reaction CIGARETTE SMOKE 09/03/2020 16 - Unknown Date Reviewed: 03/19/2024 Reviewed by: Gibran Lester LPN - Fully Assessed Prescriptions as of 06/18/2024 - levothyroxine (SYNTHROID) 125 mcg tablet Take 1 tablet by mouth once daily. - losartan-hydroCHLOROthiazide (HYZAAR) 100-25 mg per tablet Take 1 tablet by mouth once daily. - nebivolol (BYSTOLIC) 5 mg tablet Take 1 tablet by mouth once daily. - verapamil SR (CALAN SR) 180 mg CR tablet Take 2 tablets by mouth daily at bedtime. - aspirin, enteric coated (ECOTRIN LOW STRENGTH) 81 mg EC tablet Take 81 mg by mouth once daily. - yr-mq-UK-vit H-mlixq-vry-coQ10 (DAILY MULTIVITAMIN) 200-100-500 mcg cap Take 1 capsule by mouth once daily. Problem List As Of Date 06/18/2024 Noted Resolved Atrial fibrillation (HCC) [I48.91] 08/30/2019 Hypertension, essential [I10] 02/25/2017 Hypothyroidism [E03.9] 02/25/2017 Osteoarthritis of knee [M17.9] 09/01/2017 Encounter Status:Closed by HARDIK WEBER on 06/18/24 PROGRESS Observed: 03/19/2024 2:32 PM Status: COMPLETED Source: [facility] HNO ID: [id number] Author: DARRIN HARDING MD Service: ? Author Type: Physician Type: Progress Notes Filed: 03/19/2024 14:35 Note Text: Subjective Esteban Woods is a 88 year old female.The patient presents today for follow-up for multiple medical problems. See list. Her chronic medical problems have been stable. Her blood pressure is under good control. She has no new complaints today. She is feeling well. Review of Systems Constitutional: Negative. HENT: Negative. Eyes: Negative. Respiratory: Negative. Cardiovascular: Negative. Gastrointestinal: Negative. Endocrine: Negative. Genitourinary: Negative. Musculoskeletal: Negative. Skin: Negative. Allergic/Immunologic: Negative. Neurological: Negative. Hematological: Negative. Psychiatric/Behavioral: Negative. History reviewed. No pertinent surgical history. PAST MEDICAL HISTORY Diagnosis Date Atrial fibrillation (HCC) 08/30/2019 Hypertension 02/25/2017 Hypothyroidism 02/25/2017 Osteoarthritis of knee 09/01/2017 History reviewed. No pertinent family history. Social History Tobacco Use Smoking status: Never Smokeless tobacco: Never Vaping Use Vaping status: Never Used Substance Use Topics Alcohol use: Never Drug use: Never ALLERGIES Allergen Reactions Cigarette Smoke Unknown MEDICATIONS: aspirin, enteric coated (ECOTRIN LOW STRENGTH) 81 mg EC tablet Take 81 mg by mouth once daily. oz-oe-UL-vit S-yqkqj-cpa-coQ10 (DAILY MULTIVITAMIN) 200-100-500 mcg cap Take 1 capsule by mouth once daily. levothyroxine (SYNTHROID) 125 mcg tablet Take 1 tablet by mouth once daily. losartan-hydroCHLOROthiazide (HYZAAR) 100-25 mg per tablet Take 1 tablet by mouth once daily. nebivolol (BYSTOLIC) 5 mg tablet Take 1 tablet by mouth once daily. verapamil SR (CALAN SR) 180 mg CR tablet Take 2 tablets by mouth daily at bedtime. Allergies, past surgical history, family history and past medical history were reviewed per this encounter. Medications were reviewed and verified. 09/26/2023 03/19/2024 INTAKE PAIN ASSESSMENT Are you having pain associated with your visit today? No No If pain assessment is 0, no action needed. If pain assessment is positive, please see assessment and plain. Objective BP 126/82 (BP Site: Left Arm, BP Position: Sitting, BP Cuff Size: Regular Adult) Pulse 98 Temp 36.5 ?C (97.7 ?F) (Temporal) Resp 20 Ht 157.5 cm (5' 2") Wt 71.2 kg (157 lb) SpO2 98% BMI 28.72 kg/m? Physical Exam Vitals reviewed. Constitutional: Appearance: Normal appearance. HENT: Head: Normocephalic and atraumatic. Nose: Nose normal. Eyes: Extraocular Movements: Extraocular movements intact. Pupils: Pupils are equal, round, and reactive to light. Cardiovascular: Rate and Rhythm: Normal rate. Rhythm irregular. Pulmonary: Effort: Pulmonary effort is normal. Breath sounds: Normal breath sounds. Abdominal: General: Bowel sounds are normal. Palpations: Abdomen is soft. Musculoskeletal: General: Normal range of motion. Cervical back: Normal range of motion and neck supple. Skin: General: Skin is warm and dry. Capillary Refill: Capillary refill takes less than 2 seconds. Neurological: General: No focal deficit present. Mental Status: She is alert and oriented to person, place, and time. Mental status is at baseline. Psychiatric: Mood and Affect: Mood normal. Behavior: Behavior normal. Procedures Assessment and Plan Encounter Diagnosis ICD-10-CM 1. Hypertension, essential I10 Blood pressure well-controlled on current regimen. Continue present medications. 2. Paroxysmal atrial fibrillation (HCC) I48.0 Stable without RVR. Continue present medication. Continue present medications. Monitor blood pressure regularly. Exercise as tolerated. Maintain good diet. Follow-up in 6 months. Darrin Harding MD March [id number] CNOV Observed: 03/19/2024 1:50 PM Status: COMPLETED Source: [facility] ESTEBAN WOODS ([id number]) 1935 F CHT Date Time Provider Department 03/19/24 1:50 PM DARRIN HADRING During your visit today, we recorded the following information about you: Temperature Pulse Respiration Blood pressure 97.7 degrees 98/minute 20/minute 126/82 Weight Height 71.2 kg 1.575 m Gibran Lester LPN 03/19/2024 2:35 PM Signed Patient is in office for 6 month exam. Would like to discuss being more fatigued then normal. Would like paper copy of refill medications. Gibran Lester LPN March 19, 2024 1:52 PM Darrin Harding MD 03/19/2024 2:35 PM Signed Subjective Esteban Woods is a 88 year old female.The patient presents today for follow-up for multiple medical problems. See list. Her chronic medical problems have been stable. Her blood pressure is under good control. She has no new complaints today. She is feeling well. Review of Systems Constitutional: Negative. HENT: Negative. Eyes: Negative. Respiratory: Negative. Cardiovascular: Negative. Gastrointestinal: Negative. Endocrine: Negative. Genitourinary: Negative. Musculoskeletal: Negative. Skin: Negative. Allergic/Immunologic: Negative. Neurological: Negative. Hematological: Negative. Psychiatric/Behavioral: Negative. History reviewed. No pertinent surgical history. PAST MEDICAL HISTORY Diagnosis Date Atrial fibrillation (HCC) 08/30/2019 Hypertension 02/25/2017 Hypothyroidism 02/25/2017 Osteoarthritis of knee 09/01/2017 History reviewed. No pertinent family history. Social History Tobacco Use Smoking status: Never Smokeless tobacco: Never Vaping Use Vaping status: Never Used Substance Use Topics Alcohol use: Never Drug use: Never ALLERGIES Allergen Reactions Cigarette Smoke Unknown MEDICATIONS: aspirin, enteric coated (ECOTRIN LOW STRENGTH) 81 mg EC tablet Take 81 mg by mouth once daily. ux-oi-DT-vit H-awveu-nrx-coQ10 (DAILY MULTIVITAMIN) 200-100-500 mcg cap Take 1 capsule by mouth once daily. levothyroxine (SYNTHROID) 125 mcg tablet Take 1 tablet by mouth once daily. losartan-hydroCHLOROthiazide (HYZAAR) 100-25 mg per tablet Take 1 tablet by mouth once daily. nebivolol (BYSTOLIC) 5 mg tablet Take 1 tablet by mouth once daily. verapamil SR (CALAN SR) 180 mg CR tablet Take 2 tablets by mouth daily at bedtime. Allergies, past surgical history, family history and past medical history were reviewed per this encounter. Medications were reviewed and verified. 09/26/2023 03/19/2024 INTAKE PAIN ASSESSMENT Are you having pain associated with your visit today? No No If pain assessment is 0, no action needed. If pain assessment is positive, please see assessment and plain. Objective BP 126/82 (BP Site: Left Arm, BP Position: Sitting, BP Cuff Size: Regular Adult) Pulse 98 Temp 36.5 ?C (97.7 ?F) (Temporal) Resp 20 Ht 157.5 cm (5' 2") Wt 71.2 kg (157 lb) SpO2 98% BMI 28.72 kg/m? Physical Exam Vitals reviewed. Constitutional: Appearance: Normal appearance. HENT: Head: Normocephalic and atraumatic. Nose: Nose normal. Eyes: Extraocular Movements: Extraocular movements intact. Pupils: Pupils are equal, round, and reactive to light. Cardiovascular: Rate and Rhythm: Normal rate. Rhythm irregular. Pulmonary: Effort: Pulmonary effort is normal. Breath sounds: Normal breath sounds. Abdominal: General: Bowel sounds are normal. Palpations: Abdomen is soft. Musculoskeletal: General: Normal range of motion. Cervical back: Normal range of motion and neck supple. Skin: General: Skin is warm and dry. Capillary Refill: Capillary refill takes less than 2 seconds. Neurological: General: No focal deficit present. Mental Status: She is alert and oriented to person, place, and time. Mental status is at baseline. Psychiatric: Mood and Affect: Mood normal. Behavior: Behavior normal. Procedures Assessment and Plan Encounter Diagnosis ICD-10-CM 1. Hypertension, essential I10 Blood pressure well-controlled on current regimen. Continue present medications. 2. Paroxysmal atrial fibrillation (HCC) I48.0 Stable without RVR. Continue present medication. Continue present medications. Monitor blood pressure regularly. Exercise as tolerated. Maintain good diet. Follow-up in 6 months. Darrin Harding MD March 19, 2024 March 19, 2024 Allergies As of Date: 03/19/2024 Noted Allergy Reaction CIGARETTE SMOKE 09/03/2020 16 - Unknown Date Reviewed: 03/19/2024 Reviewed by: Gibran Lester LPN - Fully Assessed Reason for Visit: 6 Month Exam [189] Primary Visit Diagnosis:Hypertension, essential [I10] Comment:Blood pressure well-controlled on current regimen. Continue present medications. Other Visit Diagnosis:Paroxysmal atrial fibrillation (HCC) [I48.0] Comment:Stable without RVR. Continue present medication. Order(s):levothyroxine (SYNTHROID) 125 mcg tabletTake 1 tablet by mouth once daily.Disp: 90 tabletRfl: 3 losartan-hydroCHLOROthiazide (HYZAAR) 100-25 mg per tabletTake 1 tablet by mouth once daily.Disp: 90 tabletRfl: 3 nebivolol (BYSTOLIC) 5 mg tabletTake 1 tablet by mouth once daily.Disp: 90 tabletRfl: 3 verapamil SR (CALAN SR) 180 mg CR tabletTake 2 tablets by mouth daily at bedtime.Disp: 180 tabletRfl: 3 Prescriptions as of 03/19/2024 - levothyroxine (SYNTHROID) 125 mcg tablet Take 1 tablet by mouth once daily. - losartan-hydroCHLOROthiazide (HYZAAR) 100-25 mg per tablet Take 1 tablet by mouth once daily. - nebivolol (BYSTOLIC) 5 mg tablet Take 1 tablet by mouth once daily. - verapamil SR (CALAN SR) 180 mg CR tablet Take 2 tablets by mouth daily at bedtime. - aspirin, enteric coated (ECOTRIN LOW STRENGTH) 81 mg EC tablet Take 81 mg by mouth once daily. - xm-an-JD-vit S-dibay-ejb-coQ10 (DAILY MULTIVITAMIN) 200-100-500 mcg cap Take 1 capsule by mouth once daily. Problem List As Of Date 03/19/2024 Noted Resolved Atrial fibrillation (HCC) [I48.91] 08/30/2019 Hypertension, essential [I10] 02/25/2017 Hypothyroidism [E03.9] 02/25/2017 Osteoarthritis of knee [M17.9] 09/01/2017 Prescriptions ordered this encounter Disp Refills Start End LEVOTHYROXINE 125 MCG TABLET 90 t* 3 03/19/2024 Route: ORAL Sig: Take 1 tablet by mouth once daily. LOSARTAN 100 MG-HYDROCHLOROTHIAZIDE * 90 t* 3 03/19/2024 Route: ORAL Sig: Take 1 tablet by mouth once daily. NEBIVOLOL 5 MG TABLET 90 t* 3 03/19/2024 Route: ORAL Sig: Take 1 tablet by mouth once daily. VERAPAMIL ER (SR) 180 MG TABLET,EXTE* 180 * 3 03/19/2024 03/19/2025 Route: ORAL Sig: Take 2 tablets by mouth daily at bedtime. Medications Discontinued During This Encounter Prescriptions - levothyroxine (SYNTHROID) 125 mcg tablet (Discontinued) TAKE 1 TABLET EVERY DAY - verapamil SR (CALAN SR) 180 mg CR tablet (Discontinued) TAKE 2 TABLETS ONE TIME DAILY - losartan-hydroCHLOROthiazide (HYZAAR) 100-25 mg per tablet (Discontinued) TAKE 1 TABLET EVERY DAY - nebivolol (BYSTOLIC) 5 mg tablet (Discontinued) TAKE 1 TABLET EVERY DAY Level of Service: OFFICE/OUTPATIENT ESTABLISHED LOW [facility] 20 MIN [20407] Additional E/M codes: VISIT CPLX INHERENT EANDM ASSOC WITH MED * Disposition: Return in about 6 months (around 09/17/2024) for annual cpe. Follow-up and Disposition History for Encounter Date Provider Department Center 03/19/2024 [id number]-YIYFFDARRIN HARDING*[facility] Encounter Status:Closed by DARRIN HARDING on 03/19/24 PROGRESS Observed: 03/19/2024 1:43 PM Status: COMPLETED Source: [facility] HNO ID: [id number] Author: GIBRAN LESTER LPN Service: ? Author Type: LICENSED NURSE Type: Progress Notes Filed: 03/19/2024 14:35 Note Text: Patient is in office for 6 month exam. Would like to discuss being more fatigued then normal. Would like paper copy of refill medications. Gibran Lester LPN March 19, 2024 1:52 PM ALLERGIES DATE TYPE / CODE NAME / CODE REACTION SEVERITY SOURCE 09/03/2020 DRUG INGREDI/[id number](S NOMED CT) CIGARETTE SMOKE UNKNOWN [facility] nter ENCOUNTERS ADMIT/DISCHARGE ACCOUNT NUMBER ADMITTING ENCOUNTER CLASS LOC ATION SOURCE 10/01/2024/ 5 [id number] [facility] 09/17/2024/ 5 [id number] Ambulatory [id number] lding:[facility] 07/30/2024/ 5 [id number] Ambulatory [id number] lding:[facility] 06/27/2024/ 5 [id number] Ambulatory [id number] lding:[facility] 03/19/2024/ 4 [id number] Ambulatory [id number] lding:[facility] PAYERS ENCOUNTER GUARANTOR PAYER SUBSCRIBER SOURCE 10/01/2024 Primary Insurance:[employer] MEDICARE PPOPolicy Number: [id number] Date:[id number] Name:Michael ORELLANA Naveed FERMÍN: [id number] [address] 09/17/2024 Primary Insurance:[employer] MEDICARE PPOPolicy Number: [id number] Date:3244-43-42Nrup Name:Michael KOVACS: [id number] [address] 07/30/2024 Primary Insurance:[employer] MEDICARE PPOPolicy Number: [id number] Date:1828-74-77Stei Name:Michael ORELLANA Naveed FERMÍN: [id number] [place] [id number] [place] [address] 06/27/2024 Primary Insurance:[employer] MEDICARE PPOPolicy Number: [id number] Date:5925-47-52Uthk Name:Michael ORELLANA Naveed FERMÍN: [id number] [address] 03/19/2024 Primary Insurance:[employer] MEDICARE PPOPolicy Number: [id number] Date:3425-96-83Nqrv Name:Michael KOVACS: [id number] [address]
== END | disposition home or self-care (01) ==
LOC: LABSPEC 10:59
PROVIDERS: Visit Provider Physician Assistant
DX: R30.0 Dysuria (principal)
CPT/HCPCS: 87077; 87086; 87088; 87186

== ENCOUNTER → 2025-01-14 | Outpatient (REF) | payer MEDICARE, SELFPAY ==
[2025-01-14 07:35] LABS: Hematocrit 36.9 % (37-47); Hemoglobin 11.9 g/dL (12.0-15.0); Immature Granulocytes Count 0.100 X10^3/uL (0.0-0.0); Mean Corp Hgb Conc 32.2 g/dL (32-36); Mean Corpuscular Volume 100.5 fL (81-99); Mean Platelet Vol. 9.0 fl (6.2-12.0); NRBC Flagged by Analyzer 0 % (0-5); Platelet Count 250 K/mm3 (150-450); RBC Distribution Width CV 13.9 % (11.6-14.6); RBC Distribution Width SD 51.2 fl (35.1-43.9); Red Blood Count 3.67 M/mm3 (4.2-5.4); White Blood Count 8.4 K/mm3 (4.4-11.0)
[2025-01-14 08:04] LABS: AST(SGOT) 20 U/L (<=31); Alanine Aminotransfer ALT/SGPT 14 U/L (<=34); Albumin, Serum 3.0 g/dL (3.4-4.8); Alkaline Phosphatase 59 U/L (35-104); Anion Gap 10 (5-15); BUN 57 mg/dL (4-19); BUN/Creat Ratio 39.2 RATIO (10-20); Calcium,Total 9.3 mg/dL (7.6-11.0); Carbon Dioxide 24.6 mmol/L (21.0-32.0); Chloride 102 mmol/L (98-108); Globulin 3.4 g/dL (2.2-4.2); Glucose 83 mg/dL (70-99); Magnesium 2.0 mg/dL (1.5-2.2); Potassium 3.9 mmol/L (3.3-5.1); Vitamin B12 1110 pg/mL (180-914)
== END ==
LOC: OLS.SWAL 04:00
PROVIDERS: Referring Provider Internal Medicine; Visit Provider Internal Medicine
DX: Z00.00 Encounter for general adult medical examination without abnormal findings (principal)
CPT/HCPCS: 36415; 80053; 82607; 83735; 84443; 85025